=== PATIENT | female | born 1945 | race Caucasian/White ===

== ENCOUNTER 2019-01-17 09:07 | Emergency (ER) | payer OTHER, MEDICARE ==
--- OUTSIDE RECORDS SUMMARY | 2019-01-17 09:11 | XMS REPORT | Clinical Summary ---
:1945 Author Organization [facility] Address [address] [place] [address] Care Team Providers Name Role Phone Aixa Maria Primary Care Provider Unavailable Allergies Active Allergy Reactions Severity Noted Date Comments Sulfa (Sulfonamide Antibiotics) 12/05/2015 Medications Medication Sig Dispensed Refills Start Date End Date Status ALPRAZolam (XANAX) 0 01/25/2016 Active 0.5 MG tablet SYMBICORT 80-4.5 0 11/28/2015 Active mcg/actuation inhaler citalopram (CeleXA) 0 01/17/2016 Active 40 MG tablet montelukast 0 01/26/2016 Active (SINGULAIR) 10 mg tablet SPIRIVA RESPIMAT 0 11/28/2015 Active 2.5 mcg/actuation mist Lactobacillus Take 1 tablet 0 Active acidoph-L.bulgar by mouth 3 (FLORANEX) 1 (three) times million cell tablet a day. albuterol (PROAIR Inhale 2 puffs 0 Active HFA,PROVENTIL every 6 (six) HFA,VENTOLIN HFA) hours as 90 mcg/actuation needed for inhaler wheezing. cholecalciferol, Take 2,000 0 Active vitamin D3, Units by mouth (VITAMIN D3) 2,000 daily. unit capsule capsule diclofenac Apply 100 g 3 04/12/2018 Active (VOLTAREN) 1 % gel topically 2 (two) times a day. acyclovir (ZOVIRAX) TAKE 1 CAPSULE 180 capsule 0 01/03/2019 Active 200 MG BY MOUTH 2 capsuleIndications: TIMES A DAY Herpes infection cholestyramine 0 01/07/2016 Discontinued (QUESTRAN) 4 gram 8 packet acyclovir (ZOVIRAX) TAKE 1 CAPSULE 180 capsule 0 07/02/2017 Discontinued 200 MG BY MOUTH 2 8 capsuleIndications: TIMES A DAY Herpes infection acyclovir (ZOVIRAX) TAKE 1 CAPSULE 180 capsule 0 03/18/2018 Discontinued 200 MG BY MOUTH 2 8 capsuleIndications: TIMES A DAY Herpes infection acyclovir (ZOVIRAX) TAKE 1 CAPSULE 180 capsule 0 07/01/2018 Discontinued 200 MG BY MOUTH 2 9 capsuleIndications: TIMES A DAY Herpes infection acyclovir (ZOVIRAX) TAKE 1 CAPSULE 180 capsule 0 09/22/2018 Discontinued 200 MG BY MOUTH 2 9 capsuleIndications: TIMES A DAY Herpes infection Hospital, Clinic, or Ordered Dose Route Frequency Start Date End Date Status Other Facility Administered Medication denosumab (PROLIA) 60 mg subQ every 6 months 05/11/2018 Active syringe 60 mgIndications: Osteoporosis, postmenopausal Active Problems Problem Noted Date Shoulder arthritis 04/12/2018 Vitamin D deficiency disease 11/05/2016 H/O Clostridium difficile infection September - Jan 2016 03/05/2016 Osteoporosis s/p RECLAST 12/2014, 04/2016, 04/201703/05/2016 Overview: No reactions during infusion but diarrhea Leg length difference, acquired 03/05/2016 Scoliosis 03/05/2016 Renal cyst s/p decortication (L) complicated post op 200403/05/2016 CAT (mycobacterium avium-intracellulare) infection in 1998 s/p therapy. 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 Overview: 2007 Left tiffanie thoracotomy, upper lobectomy, lysis of pleural adhesions and mediastinal lymph node dissection Abnormal CT scan, chest 03/05/2016 Overview: Caseating granuloma associated with elastosis and calcification, benign lung changes of fibrosis, mucous plugging, bronchitis, emphysema and crystals consistent with silicate Benign lymph node with anthracotic pigment and crystals consistent with silicate and LN with sinus histiocytosis and anthracotic pigment Leucocytoclastic vasculitis 03/05/2016 Herpes infection on chronic valacyclovir 03/05/2016 Encounters Date Type Specialty Care Team Description 12/28/2018 Refill Rheumatology Luis Evans, Herpes infection on MD chronic valacyclovir 11/09/2018 Lab Lab Alim, Senile osteoporosis (Primary Dx); MD Laurel Need for prophylactic chemotherapy; Raynaud's disease without gangrene; False positive serological test for syphilis 09/22/2018 Refill Rheumatology Luis Evans, Herpes infection on chronic valacyclovir 08/27/2018 Telephone Rheumatology Radha Eckert MA 08/09/2018 Hospital Encounter Radiology Mayra, Secondary pulmonary Seamus arterial hypertension MD Jerardo ([facility] 08/09/2018 Hospital Encounter Radiology Mayra, Secondary pulmonary Seamus arterial hypertension MD Jerardo ([facility]) 08/06/2018 Transcribe Orders Access Mayra, Secondary pulmonary Seamus arterial hypertension MD Jerardo ([facility]) (Primary Dx) 08/05/2018 Lab Lab Mayra, Pulmonary artery Seamus hypertension ([facility]) MD Jerardo (Primary Dx) 06/25/2018 Refill Rheumatology Luis Evans, Herpes infection on chronic valacyclovir 05/19/2018 Hospital Encounter Procedural Cardiology Seamus Nunez MD 05/19/2018 Hospital Encounter Radiology Mayra, COPD, mild (HCC) Seamus Kurtz MD 05/12/2018 Transcribe Orders Access Mayra, COPD, mild (HCC) Seamus (Primary Dx) MD Jerardo 05/11/2018 Clinical Support Rheumatology 05/11/2018 Orders Only Rheumatology Babar OsteoporosisRadha MA postmenopausal (Primary Dx) 04/12/2018 Office Visit Rheumatology Luis Evans, Age-related osteoporosis without current pathological fracture (Primary Dx); Vitamin D deficiency disease; Shoulder arthritis; Abnormal findings on diagnostic imaging of other specified body structures ; Other osteoporosis without current pathological fracture 04/12/2018 Ancillary Luis Evans Age-related Procedure osteoporosis without current pathological fracture 04/09/2018 Telephone Endocrinology Layla Vargas 04/02/2018 Telephone Internal Medicine Opal Johnson MA 03/19/2018 Telephone Endocrinology Layla Vargas 03/18/2018 Refill Rheumatology Luis Evans, Herpes infection on chronic valacyclovir after 01/16/2018 Immunizations Name Dates Previously Given Next Due INFLUENZA QUAD PF 03/18/2017 Family History Medical History Relation Name Comments Leukemia Brother Alcohol abuse Father Cirrhosis Father COPD Mother COPD Sister Endometriosis Sister Other Sister malignant GIST Relation Name Status Comments Brother (Age 72) Father (Age 65) Mother (Age 79) Sister (Age 65) Social History Tobacco Use Types Packs/Day Years Used Date Former Smoker Smokeless Tobacco: Never Used Alcohol Use Drinks/Week oz/Week Comments No stopped 2004 Sex Assigned at Date Recorded Not on file Job Start Date Occupation Industry Not on file Not on file Not on file Travel History Travel Start Travel End No recent travel history available. Last Filed Vital Signs Vital Sign Reading Time Taken Blood Pressure 113/63 04/12/2018 11:07 AM CDT Pulse 58 04/12/2018 11:07 AM CDT Temperature 36.3 C (97.4 F) 04/12/2018 11:07 AM CDT Respiratory Rate - - Oxygen Saturation - - Inhaled Oxygen Concentration - - Weight 40.8 kg (90 lb) 08/09/2018 11:10 AM PVC MONITOR Height 146.1 cm (4' 9.5") 08/09/2018 11:10 AM PVC MONITOR Body Mass Index 19.14 08/09/2018 11:10 AM PVC MONITOR Plan of Treatment Health Maintenance Due Date Last Done Comments BREAST CANCER SCREENING 12/23/1993 COLONOSCOPY SCREENING 12/23/1993 SHINGLES VACCINES (#1) 12/23/1993 65+ PNEUMOCOCCAL VACCINE (2 of 2 - PPSV23) 12/23/2008 06/29/2004 INFLUENZA VACCINE 01/27/2019 03/18/2017 Procedures Procedure Name Priority Date/Time Associated Diagnosis Comments MARY TITER Routine 11/09/2018 3:25 Results for this PM CDT procedure are in the results section. ESTIMATED GFR Routine 11/09/2018 3:25 Results for this PM CDT procedure are in the results section. HC COMPLETE BLD COUNT Routine 11/09/2018 3:25 Senile osteoporosis Results for this W/AUTO DIFF PM CDT Need for procedure are in prophylactic the results chemotherapy section. 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 Raynaud's disease without gangrene False positive serological test for syphilis SEDIMENTATION RATE Routine 11/09/2018 3:25 Senile osteoporosis Results for this PM CDT Need for procedure are in prophylactic the results chemotherapy section. Raynaud's disease without gangrene False positive serological test for syphilis MARY Routine 11/09/2018 3:25 Senile osteoporosis Results for this PM CDT Need for procedure are in prophylactic the results chemotherapy section. 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 ESTIMATED GFR Routine 08/09/2018 11:20 Results for this AM PVC MONITOR procedure are in the results section. POC CREATININE Routine 08/09/2018 11:20 Results for this AM PVC MONITOR procedure are in the results section. NM LUNG VENTILATION Routine 08/09/2018 10:44 Secondary pulmonary Results for this PERFUSION AM PVC MONITOR arterial procedure are in hypertension (HCC) the results section. MARY TITER Routine 08/05/2018 1:28 Results for this PM PVC MONITOR procedure are in the results section. THYROID STIMULATING Routine 08/05/2018 1:28 Pulmonary artery Results for this HORMONE PM PVC MONITOR hypertension (HCC) procedure are in the results section. RIBONUCLEIC ANTIBODY Routine 08/05/2018 1:28 Pulmonary artery Results for this (NETWORKING TECHNOLOGY INSTRUCTOR) PM PVC MONITOR hypertension (HCC) procedure are in the results section. VALDERRAMA ANTIBODY Routine 08/05/2018 1:28 Pulmonary artery Results for this PM PVC MONITOR hypertension (HCC) procedure are in the results section. ANTI-NEUTROPHILIC Routine 08/05/2018 1:28 Pulmonary artery Results for this CYTOPLASMIC ABS PANEL PM PVC MONITOR hypertension (HCC) procedure are in the results section. SCL-70 ANTIBODY Routine 08/05/2018 1:28 Pulmonary artery Results for this PM PVC MONITOR hypertension (HCC) procedure are in the results section. ELAINE-1 ANTIBODY Routine 08/05/2018 1:28 Pulmonary artery Results for this PM PVC MONITOR hypertension (HCC) procedure are in the results section. SS-B ANTIBODY Routine 08/05/2018 1:28 Pulmonary artery Results for this PM PVC MONITOR hypertension (HCC) procedure are in the results section. SS-A ANTIBODY Routine 08/05/2018 1:28 Pulmonary artery Results for this PM PVC MONITOR hypertension (HCC) procedure are in the results section. RHEUMATOID FACTOR Routine 08/05/2018 1:28 Pulmonary artery Results for this PM PVC MONITOR hypertension (HCC) procedure are in the results section. MARY Routine 08/05/2018 1:28 Pulmonary artery Results for this PM PVC MONITOR hypertension (HCC) procedure are in the results section. ECHOCARDIOGRAM 2D Routine 05/19/2018 1:00 Results for this COMPLETE W MMODE PM PVC MONITOR procedure are in SPECTRAL COLOR DOPPLER the results (24486) section. CT CHEST WO CONTRAST Routine 05/19/2018 11:40 COPD, mild (HCC) Results for this AM PVC MONITOR procedure are in the results section. T4, FREE Routine 04/12/2018 11:59 Other osteoporosis Results for this AM CDT without current procedure are in pathological the results fracture section. Age-related osteoporosis without current pathological fracture Vitamin D deficiency disease Shoulder arthritis THYROID STIMULATING Routine 04/12/2018 11:59 Other osteoporosis Results for this HORMONE AM CDT without current procedure are in pathological the results fracture section. Abnormal findings on diagnostic imaging of other specified body structures Age-related osteoporosis without current pathological fracture Vitamin D deficiency disease Shoulder arthritis VITAMIN D 25 HYDROXY Routine 04/12/2018 11:59 Age-related Results for this LEVEL AM CDT osteoporosis without procedure are in current pathological the results fracture section. Vitamin D deficiency disease Shoulder arthritis BASIC METABOLIC PANEL Routine 04/12/2018 11:59 Age-related Results for this AM CDT osteoporosis without procedure are in current pathological the results fracture section. Vitamin D deficiency disease Shoulder arthritis PARATHYROID HORMONE Routine 04/12/2018 11:59 Age-related Results for this AM CDT osteoporosis without procedure are in current pathological the results fracture section. Vitamin D deficiency disease Shoulder arthritis BONE DENSITY Routine 04/12/2018 10:55 Age-related Results for this AM CDT osteoporosis without procedure are in current pathological the results fracture section. after 01/16/2018 Results Scl-70 antibody (11/09/2018 3:25 PM CDT)Only the most recent of2 resultswithin the time period is included. Pathologist [facility] Scleroderma SCL-70 <0.2 0.0 - 0.9 [facility] Scl-70 antibody Negative [facility] Comment: SABIANIST Anti-Scl-70 (topoisomerase I) antibodies are found in patients with HOSPITAL systemic sclerosis (SSc or scleroderma), and have been reported to be predictive of diffuse cutaneous involvement. Anti-Scl-70 antibodies may also be present in patients with systemic lupus erythematosus (SLE). Specimen Serum Performing Organization Address City/State/Zipcode Phone Number [facility] DEPARTMENT OF PATHOLOGY AND [address] [place] [address] GENOM[address] MED[address] [address] Estimated GFR (11/09/2018 3:25 PM CDT)Only the most recent of2 resultswithin the time period is included. Pathologist [facility] Estimated GFR 87 mL/min/1.73 [facility] Comment: HOSPITAL CatergoryUnitsInterpretation G1 >=90 Normal or high G2 60-89Mildly decreased [id number] to moderately decreased [id number] to severely decreased G4 15-29Severely decreased G5 <15Kidney failure The eGFR was calculated using the Chronic Kidney Disease Epidemiology Collaboration (CKD-EPI) equation. Interpretation is based on recommendations of the National Kidney Foundation-Kidney Disease Outcomes Quality Initiative (NKF-KDOQI) published in 2014. Specimen Plasma specimen Performing Organization Address City/[facility] Phone Number [facility] DEPARTMENT OF PATHOLOGY AND [address] [place] [phone] [place] [phone] DNA Ab screen (11/09/2018 3:25 PM CDT) DNA Ab screen Not Detected Not-Detected [facility] Specimen Blood Performing Organization Address City/[facility] Phone Number [facility] DEPARTMENT OF PATHOLOGY AND [address] [place] [phone] MARY titer (11/09/2018 3:25 PM CDT)Only the most recent of2 resultswithin the time period is included. Pathologist [facility] MARY titer 1:160 (A) Not-Detected [facility] MARY pattern Atypical speckled Not-Detected [facility] (A) HOSPITAL Specimen Blood Performing Organization Address City/[facility] Phone Number [facility] DEPARTMENT OF PATHOLOGY AND [address] [place] [phone] Protein, urine, random (11/09/2018 3:25 PM CDT) Protein, urine random 9 mg/dL [facility] Specimen Urine Performing Organization Address [facility] [place] Phone Number [facility] DEPARTMENT OF PATHOLOGY AND [address] [place] [address] [id number] [address] Creatinine level, urine, random (11/09/2018 3:25 PM CDT) Creatinine, urine, 31 mg/dL [facility] Specimen Urine Performing Organization Address City/[facility] Phone Number [facility] DEPARTMENT OF PATHOLOGY AND [address] [place] [phone] Urinalysis, automated with microscopy (11/09/2018 3:25 PM CDT) Color, UA Straw [facility] Appearance, UA Clear [facility] Specific gravity, UA 1.006 1.001 - 1.035 [facility] pH, UA 6.0 5.0 - 8.5 [facility] Protein, UA Negative Negative [facility] Glucose, UA Negative Negative [facility] Ketones, UA Negative Negative [facility] Bilirubin, UA Negative Negative [facility] Blood, UA Negative Negative [facility] Nitrite, UA Negative Negative [facility] Urobilinogen, UA <2.0 <2.0 [facility] Leukocyte esterase, Negative Negative [facility] Epithelial cells, UA <1 /HPF [facility] WBC, UA <1 0 - 4 /HPF [facility] RBC, UA None seen 0 - 5 /HPF [facility] Bacteria, UA None seen None seen [facility] Yeast, UA None seen [facility] Yeast with None seen [facility] pseudohyphae, [facility] Specimen Urine Performing Organization Address City/[facility]ode Phone Number [facility] DEPARTMENT OF PATHOLOGY AND [address] [place] [phone] [place] [phone] Sedimentation rate (11/09/2018 3:25 PM CDT) Sedimentation rate 9 0 - 20 mm/hr [facility] Specimen Blood Performing Organization Address City/[facility] Center[facility] Phone Number [facility] DEPARTMENT OF PATHOLOGY AND [address] [place] [phone] CBC with platelet and differential (11/09/2018 3:25 PM CDT) WBC 11.00 4.50 - 11.00 [facility] k/uL [facility] RBC 4.54 4.20 - 5.50 [facility] HGB 13.6 12.0 - 16.0 [facility] HCT 42.7 37.0 - 47.0 % [facility] MCV 94.1 82.0 - 100.0 [facility] MCH 30.0 27.0 - 34.0 pg [facility] MCHC 31.9 31.0 - 37.0 [facility] RDW - SD 46.5 37.0 - 55.0 fL [facility] MPV 9.4 8.8 - 13.2 fL [facility] Platelet count 294 150 - 400 k/uL [facility] Nucleated RBC 0.00 /100 WBC [facility] Neutrophils 56.3 39.0 - 69.0 % [facility] Lymphocytes 29.4 25.0 - 45.0 % [facility] Monocytes 9.4 0.0 - 10.0 % [facility] Eosinophils 3.1 0.0 - 5.0 % [facility] Basophils 1.5 (H) 0.0 - 1.0 % [facility] Immature granulocytes 0.3Comment: 0.0 - 1.0 % [facility] "[facility] granulocytes" (promyelocytes , myelocytes, metamyelocytes ) Specimen Blood Performing Organization Address City/[facility] [place] Phone Number [facility] DEPARTMENT OF PATHOLOGY AND [address] [place] [phone] C3 complement component (11/09/2018 3:25 PM CDT) C3 complement 142 90 - 180 mg/dL [facility] Specimen Plasma specimen Performing Organization Address [facility] [place] Phone Number [facility] DEPARTMENT OF PATHOLOGY AND [address] [place] [phone] C4 complement component (11/09/2018 3:25 PM CDT) C4 complement 28 10 - 40 mg/dL [facility] Specimen Plasma specimen Performing Organization Address [facility] [place] Phone Number [facility] DEPARTMENT OF PATHOLOGY AND [address] [place] [phone] C-reactive protein (11/09/2018 3:25 PM CDT) CRP <0.30 0.00 - 0.50 mg/dL [facility] Specimen Plasma specimen Performing Organization Address [facility] [place] Phone Number [facility] DEPARTMENT OF PATHOLOGY AND [address] [place] [phone] MARY (11/09/2018 3:25 PM CDT)Only the most recent of2 resultswithin the time period is included. MARY screen Positive (A) Negative [facility] Specimen Blood Performing Organization Address City/State/Zipcode Phone Number [facility] DEPARTMENT OF PATHOLOGY AND [address] [place] [address] [address] Comprehensive metabolic panel (11/09/2018 3:25 PM CDT) Sodium 140 135 - 148 [facility] mEq/L [facility] Potassium 3.9 3.5 - 5.0 [facility] mEq/L [facility] Chloride 101 98 - 112 mEq/L [facility] CO2 26 24 - 31 mEq/L [facility] Anion gap 13@ANIO 7 - 15 mEq/L [facility] BUN 8 8 - 23 mg/dL [facility] Creatinine 0.65 0.50 - 0.90 [facility] mg/dL [facility] Glucose 86 65 - 99 mg/dL [facility] Calcium 9.3 8.8 - 10.2 [facility] mg/dL [facility] Protein 7.6 6.3 - 8.3 g/dL [facility] Comment: HOSPITAL [place] 4.6-7.0 g/dL 1 week 4.4-7.6 g/dL 7 months-1year5.1-7.3 g/dL 1-2 years5.6-7.5 g/dL >3 years6.0-8.0 g/dL 18-150 6.3-8.3 g/dL Albumin 4.1 3.5 - 5.0 g/dL [facility] A/G ratio 1.2 0.7 - 3.8 [facility] Alkaline phosphatase 81 35 - 104 U/L [facility] AST 27 10 - 35 U/L [facility] ALT 18 5 - 50 U/L [facility] Total bilirubin <0.2 0.0 - 1.2 [facility] mg/dL HOSPITAL Specimen Plasma specimen Performing Organization Address City/State/Zipcode Phone Number [facility] DEPARTMENT OF PATHOLOGY AND [address] [place] [address] [address] [address] Angiogram Pe Chest (08/09/2018 12:14 PM PVC MONITOR) Specimen Narrative Performed At EXAMINATION: [facility] CT ANGIOGRAM PE CHEST CLINICAL HISTORY: I27.21 Secondary pulmonary arterial hypertension, I27.21 TECHNIQUE: CT angiographic images of the chest were obtained during intravenous administration of iodinated contrast. Computerized reformatted images and 3-D MIP images were also obtained and archived. CT imaging was performed with iterative reconstruction techniques and/orautomated exposure control to reduce radiation dose. COMPARISON: May 19, 2018 IMPRESSION: There is no evidence of pulmonary embolism. No significant lymphadenopathy, pleural or pericardial effusions are present Diffuse emphysematous changes are present throughout the lungs similar in appearance to prior. Bronchiectasis in the bilateral upper lobes, right greater than left as well as scarring in the right upper lobe is again present and unchanged. The main pulmonary artery is not dilated with a maximum diameter 2.5 cm Images of the upper abdomen are unremarkable Age related changes are present throughout the bony structures without evidence of a suspicious focal lesion. [facility]-[id number] Procedure Note Interface, Radiology Results Incoming - 08/09/2018 12:19 PM PVC MONITOR EXAMINATION: CT ANGIOGRAM PE CHEST CLINICAL HISTORY: I27.21 Secondary pulmonary arterial hypertension, I27.21 TECHNIQUE: CT angiographic images of the chest were obtained during intravenous administration of iodinated contrast. Computerized reformatted images and 3-D MIP images were also obtained and archived. CT imaging was performed with iterative reconstruction techniques and/or automated exposure control to reduce radiation dose. COMPARISON: May 19, 2018 IMPRESSION: There is no evidence of pulmonary embolism. No significant lymphadenopathy, pleural or pericardial effusions are present Diffuse emphysematous changes are present throughout the lungs similar in appearance to prior. Bronchiectasis in the bilateral upper lobes, right greater than left as well as scarring in the right upper lobe is again present and unchanged. The main pulmonary artery is not dilated with a maximum diameter 2.5 cm Images of the upper abdomen are unremarkable Age related changes are present throughout the bony structures without evidence of a suspicious focal lesion. [facility]-[id number] Performing Organization Address City/State/Zipcode Phone Number [facility] [address] [place] [address] POC creatinine (08/09/2018 11:20 AM PVC MONITOR) POC creatinine 0.7 0.5 - 0.9 mg/dl [facility] Comment: HOSPITAL Meter ID: [id number] Machine Feed Operator: Terry Briones Specimen Blood Performing Organization Address City/[facility]/Zipcode Phone Number [facility] DEPARTMENT OF PATHOLOGY AND [address] [place] [phone] GENOMIC MEDICINE [address] [place] [address] [place] Lung Ventilation Perfusion (08/09/2018 10:44 AM PVC MONITOR) Specimen Narrative Performed At PROCEDURE:NM LUNG VENTILATION PERFUSION [facility] INDICATION:Secondary pulmonary arterial hypertension. COMPARISON:Chest CT dated 05/19/2018. TECHNIQUE:Planar ventilation images were acquired after the inhalation of 15 mCi of Xe-133 gas. Planar perfusion images were acquired after the IV administration of 5 mCi of Tc-99m MAA. FINDINGS:Ventilation images demonstrate decreased ventilation to the lung periphery and left lung base. Washout images demonstrate patchy gas trapping in both lungs.Perfusion images demonstrate decreased perfusion to the lung periphery and left lung base, matching the ventilation images.No definite mismatched defects. IMPRESSION: 1.Low probability for acute PE. 2.No definite evidence for underlying chronic PE.Multiple matched defects in both lungs are most suggestive of underlying airspace disease. [facility]-[id number] Procedure Note Interface, Radiology Results Incoming - 08/09/2018 11:25 AM PVC MONITOR PROCEDURE: NM LUNG VENTILATION PERFUSION INDICATION: Secondary pulmonary arterial hypertension. COMPARISON: Chest CT dated 05/19/2018. TECHNIQUE: Planar ventilation images were acquired after the inhalation of 15 mCi of Xe-133 gas. Planar perfusion images were acquired after the IV administration of 5 mCi of Tc-99m MAA. FINDINGS: Ventilation images demonstrate decreased ventilation to the lung periphery and left lung base. Washout images demonstrate patchy gas trapping in both lungs. Perfusion images demonstrate decreased perfusion to the lung periphery and left lung base, matching the ventilation images. No definite mismatched defects. IMPRESSION: 1. Low probability for acute PE. 2. No definite evidence for underlying chronic PE. Multiple matched defects in both lungs are most suggestive of underlying airspace disease. [facility]-[id number] Performing Organization Address City/State/[facility] Phone Number [facility] [address] [place] [address] SS-B antibody (08/05/2018 1:28 PM PVC MONITOR) Sjogren's SS-B <0.2 0.0 - 0.9 AI [place] antibody [facility] SS-B antibody Negative [facility] interp Comment: SABIANIST SS-B/La antibody is seen in patients with Sjogren syndrome, but may also be HOSPITAL positive with systemic lupus erythematosus (SLE), and systemic sclerosis. Specimen Serum Performing Organization Address City/[facility] Cent[facility]ode Phone Number [facility] DEPARTMENT OF PATHOLOGY AND [address] [place] [id number] [place] [phone] SS-A antibody (08/05/2018 1:28 PM PVC MONITOR) Sjogren's SS-A <0.2 0.0 - 0.9 [facility] antibody [facility] SS-A antibody Negative [facility] interp Comment: SABIANIST SS-A antibody is sensitive for Sjogren's syndrome, but may also be positive HOSPITAL with systemic lupus erythematosus (SLE), and systemic sclerosis. Specimen Serum Performing Organization Address City/State/Zipcode Phone Number [facility] DEPARTMENT OF PATHOLOGY AND [address] [place] [phone] Valderrama antibody (08/05/2018 1:28 PM PVC MONITOR) Valderrama antibody <0.2 0.0 - 0.9 [facility] Valderrama antibody Negative [facility] interp Comment: SABIANIST Anti-Valderrama antibodies occurs in 30-35% of systemic lupus erythematosus HOSPITAL (SLE) cases, but is very specific for SLE. It may also present in mixed connective-tissue disease (MCTD). Specimen Serum Performing Organization Address City/State/Zipcode Phone Number [facility] DEPARTMENT OF PATHOLOGY AND [address] [place] [phone] Ribonucleic antibody (NETWORKING TECHNOLOGY INSTRUCTOR) (08/05/2018 1:28 PM PVC MONITOR) Ribonucleic <0.2 0.0 - 0.9 [facility] antibody (NETWORKING TECHNOLOGY INSTRUCTOR) [facility] Ribonucleic Negative [facility] antibody (NETWORKING TECHNOLOGY INSTRUCTOR) Comment: [facility] Anti-ribonucleic protein (anti-NETWORKING TECHNOLOGY INSTRUCTOR) antibodies are typically found in HOSPITAL patients with mixed connective tissue disease, but can also be seen in patients with systemic lupus erythematosus (SLE) or systematic sclerosis. Specimen Serum Performing Organization Address City/State/Zipcode Phone Number [facility] DEPARTMENT OF PATHOLOGY AND [address] [place] [phone] Elaine-1 antibody (08/05/2018 1:28 PM PVC MONITOR) Elaine-1 antibody <0.2 0.0 - 0.9 AI [facility] Elaine-1 antibody Negative [facility] Comment: SABIANIST Anti-Elaine-1 antibody is predominantly found in patients with polymyositis, HOSPITAL especially for those with interstitial pulmonary fibrosis. It can also be found in patients with dermatomyositis. Specimen Serum Performing Organization Address [facility] Centercode Phone Number [facility] DEPARTMENT OF PATHOLOGY AND [address] [place] [address] Anti-neutrophilic cytoplasmic Abs panel (08/05/2018 1:28 PM PVC MONITOR) [facility] ANCA screen Negative Negative [facility] Specimen Blood Performing Organization Address [facility] Number [facility] DEPARTMENT OF PATHOLOGY AND [address] [place] [address] Rheumatoid factor (08/05/2018 1:28 PM PVC MONITOR) [facility] Rheumatoid factor <10 0 - 13 IU/mL [facility] Specimen Plasma specimen Performing Organization Address [facility] Phone Number [facility] DEPARTMENT OF PATHOLOGY AND [address] [place] [address] Thyroid stimulating hormone (08/05/2018 1:28 PM PVC MONITOR)Only the most recent of2 resultswithin the time period is included. [facility] TSH 1.31 0.27 - 4.20 uIU/mL [facility] Specimen Plasma specimen Performing Organization Address [facility] Phone Number [facility] DEPARTMENT OF PATHOLOGY AND [address] [place] [address] Echocardiogram complete w contrast and 3D if needed (05/19/2018 1:00 PM PVC MONITOR) Specimen Narrative Performed At [facility] Echocardiography Report [address] [place] [address] [address], [place] [address] Pat.Name:SEEMA ROMO Elsa.ID:[id number] St.Date: 05/19/2018 Refer.MD:Kiana NUNEZ MD Exam Time: 12:15:00 PM Study Type:Routine Echo Height:57inWeight: 90lb BSA: 1.28 m2 DOBAge:1945,72Y Sex: FEMALEBP:113/63 HR:79 bpmSonogrphr: SHEMAR Aden, [facility] Pat. Stat.:OutpatientRoom:OPC 16 Study Status:Revised Echo Event ID:[id number] Order ID:[id number] Reason for Study:Pulmonary Hypertension History / Clinical:COPD Procedures:2D Echo, Colorflow Doppler, Strain Race:C SUMMARY: LV EF is normal. RV systolic function is mildly depressed. LV filling pressure is normal. Estimated PA systolic pressure is 65-70 mmHg, assuming a mean RAP of 5-10 mmHg. FINDINGS: LV: LV size is normal. LV EF is normal. Overall wall motion is normal.Estimated EF is 60-64%. Septal motion is paradoxicalsecondary to RV systolic pressure overload. RV: RV size is enlarged. RV systolic function is mildly depressed. LA: LA size is normal. RA: RA size is normal. AO: Aortic root diameter is normal. MARTY: No pericardial effusion. AV: No structural AV abnormalities noted. MV: No structural MV abnormalities noted. PV: No structural PV abnormalities noted. TV: No structural TV abnormalities noted. Mild to moderate tricuspidregurgitation Welch: LV relaxation is reduced, appropriate for age. LV filling pressureis normal. Other:Estimated PA systolic pressure is 65-70 mmHg, assuming a meanRAP of 5-10 mmHg. MEASUREMENTS: 2D Parasternal Long [place] LVOT 1.7 cmIVSd 0.6 cm Ao An1.9 cmLVPWd0.6 cm Ao Rtd 2.4 cmIndex1.9 cm/m LA Ds2.9 cm LVIDd4.1 cmIndex3.2 cm/m LV Mass 65.7 g(87-129) LVIDs2.2 cmLVM Index 51.4 g/m2 LV%fs 46.3 % RWT0.3 LA Sng Plane LA Area 14.5 cm2(8.8-23.4) LA Vol33.4 ml Index26.1 ml/m LA LngAx 5.1 cm DOPPLER LVOT Stroke Vol LVOT 1.7 cmLVOT CO4.3 l/min LVOT TVI23.8 cmLVOT CI3.3 l/m/m2 LVOT Tm282 zhkpFF60 bpm LVOT SV 54.1 ml TAPSE TVI TAPS TVI 2.2 cmTAPS Flw Int 362 msec Signed 05/24/2018 3:22:37 PM Librado Angela M.D. Revised Procedure Note Interface, Radiology Results In - 05/24/2018 3:22 PM [facility] Echocardiography Report [address] [place] [address] Pat.Name: SEEMA ROMO Pat.ID: [id number] .Date: 05/19/2018 Refer.MD: Kiana NUNEZ MD Exam Time: 12:15:00 PM Study Type:Routine Echo Height: 57in Weight: 90lb BSA: 1.28 m2 Age: 4 1945,72Y Sex: FEMALE BP: 113/63 HR: 79 bpm Sonogrphr: SHEMAR Aden, [facility] Pat. Stat.:Outpatient Room: OPC 16 Study Status:Revised Echo Event ID:[id number] Order ID: [id number] Reason for Study:Pulmonary Hypertension History / Clinical:COPD Procedures:2D Echo, Colorflow Doppler, Strain Race: C SUMMARY: LV EF is normal. RV systolic function is mildly depressed. LV filling pressure is normal. Estimated PA systolic pressure is 65-70 mmHg, assuming a mean RAP of 5-10 mmHg. FINDINGS: LV: LV size is normal. LV EF is normal. Overall wall motion is normal. Estimated EF is 60-64%. Septal motion is paradoxical secondary to RV systolic pressure overload. RV: RV size is enlarged. RV systolic function is mildly depressed. LA: LA size is normal. RA: RA size is normal. AO: Aortic root diameter is normal. MARTY: No pericardial effusion. AV: No structural AV abnormalities noted. MV: No structural MV abnormalities noted. PV: No structural PV abnormalities noted. TV: No structural TV abnormalities noted. Mild to moderate tricuspid regurgitation Welch: LV relaxation is reduced, appropriate for age. LV filling pressure is normal. Other: Estimated PA systolic pressure is 65-70 mmHg, assuming a mean RAP of 5-10 mmHg. MEASUREMENTS: 2D Parasternal Long [place] LVOT 1.7 cm IVSd 0.6 cm Ao An 1.9 cm LVPWd 0.6 cm Ao Rtd 2.4 cm Index 1.9 cm/m LA Ds 2.9 cm LVIDd 4.1 cm Index 3.2 cm/m LV Mass 65.7 g (87-129) LVIDs 2.2 cm LVM Index 51.4 g/m2 LV%fs 46.3 % RWT 0.3 LA Sng Plane LA Area 14.5 cm2 (8.8-23.4) LA Vol 33.4 ml Index 26.1 ml/m LA LngAx 5.1 cm DOPPLER LVOT Stroke Vol LVOT 1.7 cm LVOT CO 4.3 l/min LVOT TVI 23.8 cm LVOT CI 3.3 l/m/m2 LVOT Tm 282 msec HR 79 bpm LVOT SV 54.1 ml TAPSE TVI TAPS TVI 2.2 cm TAPS Flw Int 362 msec Signed 05/24/2018 3:22:37 PM Librado Angela M.D. Revised Performing Organization Address City/State/Zipcode Phone Number [facility] [address] [place] [address] CT Chest Wo Contrast (05/19/2018 11:40 AM PVC MONITOR) Specimen Narrative Performed At EXAMINATION: [facility] CT CHEST WO CONTRAST CLINICAL HISTORY: J44.9 Chronic obstructive pulmonary diseaseunspecified, J44.9 TECHNIQUE:Multiple axial images of the chest were obtained without intravenous contrast. The lack of intravenous contrast reduces the sensitivity of detecting solid organ disease and evaluating vasculature. Sagittal and coronal computerized reformatted images were also obtained. CT imaging was performed with iterative reconstruction techniques and/or automated exposure control to reduce radiation dose. COMPARISON: To previous study from 04/07/2016 IMPRESSION: 1.No hilar or mediastinal lymphadenopathy is appreciated. 2.Bronchiectasis and severe scarring is present in the lung apices. Severe emphysematous changes are present diffusely no acute consolidation is appreciated. 3.Arthritic changes noted involving the spine and mild scoliotic curvature is present. [id number] Procedure Note Interface, Radiology Results Incoming - 05/19/2018 11:53 AM PVC MONITOR EXAMINATION: CT CHEST WO CONTRAST CLINICAL HISTORY: J44.9 Chronic obstructive pulmonary disease unspecified, J44.9 TECHNIQUE: Multiple axial images of the chest were obtained without intravenous contrast. The lack of intravenous contrast reduces the sensitivity of detecting solid organ disease and evaluating vasculature. Sagittal and coronal computerized reformatted images were also obtained. CT imaging was performed with iterative reconstruction techniques and/or automated exposure control to reduce radiation dose. COMPARISON: To previous study from 04/07/2016 IMPRESSION: 1. No hilar or mediastinal lymphadenopathy is appreciated. 2. Bronchiectasis and severe scarring is present in the lung apices. Severe emphysematous changes are present diffusely no acute consolidation is appreciated. 3. Arthritic changes noted involving the spine and mild scoliotic curvature is present. [id number] Performing Organization Address City/State/Zipcode Phone Number [facility] [address] [place] [address] Vitamin D 25 hydroxy level (04/12/2018 11:59 AM CDT) Pathologist [facility] Vitamin D, 69 30 - 100 [employer] 25-hydroxy Comment: ng/mL [place] Vitamin D Status 25-OH Vitamin D: Deficiency:<20 ng/mL Insufficiency: 20 - 29 ng/mL Optimal: > or=30 ng/mL For 25-OH Vitamin D testing on patients on D2-supplementation and patients for whom quantitation of D2 and D3 fractions is required, the QuestAssureD(TM) 25-OH VIT D, (D2,D3), LC/MS/MS is recommended: order code 04883 (patients >2yrs). For more information on this test, go to: http://education.Access [employer]/faq/LTA682 (This link is being provided for informational/educational purposes only.) Specimen Blood Narrative Performed At FASTING:YES [facility] FASTING: YES Resulting Agency Comment Performing Organization Information: Site ID: [id number] Name: [facility] Address: [address] [place] [phone] Director: Loan Peres Performing Organization Address [facility] Centercode Phone Number [employer] [address] [address] T4, free (04/12/2018 11:59 AM CDT) Pathologist [facility] T4, free 0.9 0.8 - 1.8 ng/dL [employer] [place] Specimen Blood Narrative Performed At FASTING:YES [facility] FASTING: YES Resulting Agency Comment Performing Organization Information: Site ID: [id number] Name: [facility] Address: [address] [place] [phone] Director: Loan Peres Performing Organization Address City/[facility]/Zipcode Phone Number [employer] [address] [address] Parathyroid hormone (04/12/2018 11:59 AM CDT) Pathologist [facility] PTH 57 14 - 64 pg/mL [facility] Comment: DIAGNOSTICS-LAURIE G II Interpretive GuideIntact PTH Calcium ------- Normal ParathyroidNormal Normal HypoparathyroidismLow or Low NormalLow Hyperparathyroidism PrimaryNormal or High High SecondaryHigh Normal or Low Tertiary High High Non-Parathyroid HypercalcemiaLow or Low NormalHigh Specimen Blood Narrative Performed At FASTING:YES [facility] FASTING: YES Resulting Agency Comment Performing Organization Information: Site ID: [id number] Name: [facility] - [facility] Address: [address] [place] [address] Director: Dr. Faraz Castro Performing Organization Address City/State/Zipcode Phone Number [facility] [address] [place] [address] Basic metabolic panel (04/12/2018 11:59 AM CDT) Glucose 85 65 - 99 [employer] Comment: mg/dL [place] Fasting reference interval BUN, whole blood 9 7 - 25 mg/dL [facility] [place] Creatinine 0.63 0.60 - 0.93 [employer] Comment: mg/dL [place] For patients >49 years of age, the reference limit for Creatinine is approximately 13% higher for people identified as -Dominican. EGFR Non-Afr. 88 > OR=60 [facility] Dominican mL/min/1.73m [place] 2 EGFR 102 > OR=60 [facility] Dominican mL/min/1.73m [place] 2 BUN/creatinine NOT APPLICABLE 6 - 22 [facility] ratio (calc) [place] Sodium 140 135 - 146 [facility] mmol/L [place] Potassium 3.8 3.5 - 5.3 [facility] mmol/L [place] Chloride 104 98 - 110 [facility] mmol/L [place] CO2 31 20 - 32 [facility] mmol/L [place] Calcium 9.3 8.6 - 10.4 [facility] mg/dL [place] Specimen Blood Narrative Performed At FASTING:YES [facility] FASTING: YES Resulting Agency Comment Performing Organization Information: Site ID: [id number] Name: [facility] Address: [address] [place] [address] Director: Loan Peres Performing Organization Address City/State/Zipcode Phone Number [facility] [employer] [place] [address] [place], [place] [phone] Bone Density (04/12/2018 10:55 AM CDT) Specimen Narrative Performed At [facility] [address] [facility] [place] [address] Bone Density Report Name: Seema Romo Sex: Female Age: 72 Ethnicity: White Height: 57.5 in Referring Provider: LUIS EVANS Date of : 1945 Weight: 89.0 lb Indication: Osteoporosis; history of glucocorticoids Accession number: [id number] Bone Density: Exam date 04/12/2018 Region BMD (g/cm2) T-score Z-score Classification AP Spine(L1-L4) 0.730 -2.9 -0.5 Osteoporosis Femoral Neck(Left) 0.521 -3.0 -0.9 Osteoporosis Total Hip(Left) 0.609 -2.7 -1.0 Osteoporosis Femoral Neck(Right) 0.542 -2.8 -0.7 Osteoporosis Total Hip(Right) 0.623 -2.6 -0.9 Osteoporosis Total Hip Mean 0.616 -2.7 -1.0 Osteoporosis World Health Organization criteria for BMD impression classify patients as Normal (T-score at or above 1.0), Osteopenia (T-score between 1.0 and 2.5), or Osteoporosis (T-score at or below 2.5). 10-year Fracture Risk: Major Osteoporotic Fracture 24% Hip Fracture 10% Reported Risk Factors: [place] (), T-score(WHO)=-2.8, BMI=18.9, glucocorticoids FRAX Version 3.08. Fracture probability calculated for an untreated patient. Fracture probability may be lower if the patient has received treatment. Previous Exams: Region Exam Date Age BMD (g/cm2) T-score BMD Change vs. Baseline BMD Change vs. Previous AP Spine(L1-L4) 04/12/2018 72 0.730 -2.9 2.1% -0.8% 04/08/2017 71 0.735 -2.8 2.9% 1.7% 01/01/2016 70 0.723 -2.9 1.1% 1.1% 12/21/2014 68 0.715 -3.0 Total Hip(Left) 04/12/2018 72 0.609 -2.7 -0.1% -1.5% 04/08/2017 71 0.618 -2.7 1.4% 2.8% 01/01/2016 70 0.601 -2.8 -1.4% -1.4% 12/21/2014 68 0.610 -2.7 Total Hip(Right) 04/12/2018 72 0.623 -2.6 -1.1% -0.4% 04/08/2017 71 0.626 -2.6 -0.7% 0.0% 01/01/2016 70 0.626 -2.6 -0.6% -0.6% 12/21/2014 68 0.630 -2.6 *Denotes significance at 95% confidence level, LSC for AP Spine=0.022 g/cm2,LSC for Total Hip=0.027 g/cm2 Impression: The patient has osteoporosis, based on the Left Femoral Neck T-score. The patient has an estimated ten-year risk of hip fracture of 10% and an estimated ten-year risk of major fracture of 24%, based on the WHO FRAX algorithm. The patient has risk factors, including: history of glucocorticoid therapy. Monitoring: No significant bone loss was observed. Discussion: INCREASED RISK OF FRACTURE. BONE DENSITY IS UNDESIRABLY LOW AT ONE OR MORE SKELETAL SITES, CONSISTENT WITH POSTMENOPAUSAL OSTEOPOROSIS. This patient's lowest T-score meets the World Health Organization's (WHO) criteria for osteoporosis at one or more sites (T-score -2.5 or below). In untreated patients, the risk of osteoporotic fracture increases approximately two-fold for each 1.0 SD decrease in T-score.Low bone density is not the only risk factor for fracture; also consider factors such as patient's age, frailty or poor health, risk of falling, risk of injury, previous osteoporotic fracture, family history of osteoporosis, cigarette smoking, low body weight, etc. Not everyone with low bone mineral density has osteoporosis; osteomalacia and other metabolic bone disorders should also be considered. Patients who have osteoporosis should be evaluated for specific diseases and conditions (secondary causes) that may cause or contribute to bone loss. The [place] Association of Clinical Endocrinologists (AACE) and National Osteoporosis Foundation (NOF) recommend pharmacologic intervention for all postmenopausal women whose T-score is in this range. The patient should follow a healthful lifestyle (good nutrition with adequate calcium and vitamin D, and appropriate weight-bearing exercise). Follow-Up: Consider a repeat BMD and Vertebral Fracture Assessment (VFA) exam in 1-2 years or sooner if medically necessary, to reassess this patient's status. Reported by: Bishop Culp MD, MACE, CCD on 04/13/2018 6:08:00 AM. Performing Organization Address City/State/Zipcode Phone Number [facility] [address] [place] [address] after 01/16/2018 Insurance Payer Benefit Plan / Subscriber ID Effective Dates Phone Address Type Group MEDICARE MEDICARE PART A xxxxxxxxxxx 2001-Present [place], [place] Medicare AND B AARP AARP SUPPLEMENT xxxxxxxxx 2008-Present Commercial Advance Directives Patient has advance care planning documents on file. For more information, please contact:Yony Lundberg[address] [place] [address]
--- OUTSIDE RECORDS SUMMARY | 2019-01-17 09:11 | XMS REPORT ---
:1945 Author Organization eClinicalWorks Care Team Providers Name Role Phone Crawford, [facility] Provider Role Unavailable Allergies, Adverse Reactions, Alerts Substance Reaction Event Type Bactrim DS Info Not Available Drug Allergy Problems Problem Type Condition Code Onset Dates Condition Status Assessment Depression with anxiety F41.8 Active Problem 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 Problem Chronic obstructive pulmonary J44.9 Active disease, unspecified COPD type Problem Seasonal allergies J30.2 Active Problem Shingles B02.9 Active Problem Depression with anxiety F41.8 Active Problem Age-related osteoporosis without M81.0 Active current pathological fracture Problem Fatty liver K76.0 Active Medications Medication Code Code Instructions Start End Status Dosage System Date Date Montelukast [facility] 29814235683 10 MG once a Active TAKE 1 TABLET Sodium day BY MOUTH ONCE A DAY IN THE EVENING Flovent HFA [facility] 96242941364 220 MCG/ACT Active 1 puff Inhalation Twice a day Xanax [facility] 84101103330 0.5 MG Orally Active 1 tablet BID PRN Nasonex [facility] 97392608341 50 MCG/ACT Active 2 sprays in Nasally Once a each nostril day Celexa [facility] 38063019746 40 MG Orally Jul 28, Active 1 tablet Once a day 2017 ProAir HFA [facility] 38229192579 108 (90 Base) Active 2 puffs as MCG/ACT needed Inhalation every 6 hrs Spiriva [facility] 62450179633 2.5 microgram Active 2 puffs Respimat Inhaled Once a day Reclast [facility] 75138563363 5 MG/100ML Active not defined Intravenous Vitamin D [facility] 12133115090 2000 UNIT Active 1 tablet Orally Once a day Symbicort [facility] 18858434854 80-4.5 MCG/ACT Active 2 puffs Inhalation Twice a day Questran [facility] 57910466299 4 GM Orally Active 1 packet mixed Twice a day with water or non-carbonated drink Claritin [facility] 85182345225 10 MG Orally Active 1 tablet Once a day Pennsaid [facility] 86165538218 2 % Transdermal December 09December Active 2 pump Twice a day 2017, 2017 to affected area Results No Known Results Summary Purpose eClinicalWorks Submission
--- OUTSIDE RECORDS SUMMARY | 2019-01-17 09:11 | XMS REPORT | Clinical Summary ---
:1945 Author Organization [facility] Address [address] [place] [address] Care Team Providers Name Role Phone Refugio Crawford Primary Care Provider Allergies Active Allergy Reactions Severity Noted Date Comments Sulfa (Sulfonamide Antibiotics) Swelling 06/10/2018 Medications Medication Sig Dispensed Refills Start Date End Date Status turmeric 400 mg Cap Take by mouth daily. 0 Active omega-3 fatty Take 1 g by mouth 0 Active acids-fish oil daily. 340-1,000 mg Cap per capsule citalopram (CELEXA) Take 40 mg by mouth 0 Active 40 MG tablet daily. montelukast Take 10 mg by mouth 0 Active (SINGULAIR) 10 mg nightly. tablet guaiFENesin Take 1,200 mg by 0 Active (MUCINEX) 600 mg 12 mouth daily. hr tablet glucosamine sulfate Take by mouth daily. 0 Active (GLUCOSAMINE) 500 mg Tab albuterol HFA Inhale 2 puffs by 0 Active (PROAIR HFA) 90 mouth via inhaler mcg/actuation every 4 (four) hours inhaler as needed for Wheezing. albuterol (ACCUNEB) Take 1 ampule by 0 Active 1.25 mg/3 mL nebulization 2 (two) nebulizer solution times daily. acyclovir (ZOVIRAX) Take 200 mg by mouth 0 Active 200 MG capsule 2 (two) times daily. cholecalciferol, Take by mouth daily . 0 Active vitamin D3, (VITAMIN D3) 1,000 unit capsuleIndications: Take 2 Tabs Daily tiotropium bromide Inhale by mouth via 0 Active (SPIRIVA RESPIMAT) inhaler every 2.5 mcg/actuation morning. MistIndications: 2 puffs in the morning budesonide-formoter Inhale 2 puffs by 0 Active ol (SYMBICORT) mouth via inhaler 2 80-4.5 (two) times daily. mcg/actuation inhaler ALPRAZolam (XANAX) Take 0.5 mg by mouth 0 Active 0.5 MG tablet as needed for Anxiety. glucosamine-chondro Take 1 tablet by 0 Active itin 500-400 mg mouth 3 (three) times tablet daily. denosumab (PROLIA) Inject 60 mg 0 Active 60 mg/mL Syrg subcutaneously every 6 (six) months. Active Problems Problem Noted Date Heart failure 06/11/2018 Encounters Date Type Specialty Care Team Description 06/11/2018 Surgery [facility] R & L CATH / MD Radha CORONARY ANGIOS / BIOPSY 06/11/2018 Hospital Encounter Lopez Luz Chronic systolic MD Radha heart failure (HCC) 06/11/2018 Orders Only General Internal Medicine after 01/16/2018 Social History Tobacco Use Types Packs/Day Years Used Date Former Smoker 1.5 40 Quit: 2004 Smokeless Tobacco: Never Used Alcohol Use Drinks/Week oz/Week Comments Yes 1 Glasses of wine 0.6 occasional Alcohol Habits Answer Date Recorded How often do you have a drink containing alcohol? Never 06/10/2018 How many drinks containing alcohol do you have on a typical Not asked day when you are drinking? How often do you have six or more drinks on one occasion? Not asked Sex Assigned at Date Recorded Not on file Job Start Date Occupation Industry Not on file Not on file Not on file Travel History Travel Start Travel End No recent travel history available. Last Filed Vital Signs Vital Sign Reading Time Taken Blood Pressure 108/53 06/11/2018 2:00 PM RESERVATIONS AGENT Pulse 91 06/11/2018 2:00 PM [facility]ERVATIONS AGENT Temperature 36.9 C (98.5 F) 06/11/2018 5:43 AM RESERVATIONS AGENT Respiratory Rate 16 06/11/2018 2:00 PM RESERVATIONS AGENT Oxygen Saturation 91% 06/11/2018 10:10 AM RESERVATIONS AGENT Inhaled Oxygen Concentration - - Weight 38.8 kg (85 lb 8 oz) 06/11/2018 5:43 AM RESERVATIONS AGENT Height 146.1 cm (4' 9.5") 06/11/2018 5:43 AM RESERVATIONS AGENT Body Mass Index 18.18 06/11/2018 5:43 AM RESERVATIONS AGENT Plan of Treatment Not on file Procedures Procedure Name Priority Date/Time Associated Diagnosis Comments CARDIAC CATH REPORT - 06/18/2018 1:01 PM SCAN RESERVATIONS AGENT R & L CATH / CORONARY 06/11/2018 7:30 AM Heart failure, ANGIOS / BIOPSY RESERVATIONS AGENT unspecified HF chronicity, unspecified heart failure type (HCC) Case Notes POP6. Nitric Oxide challenge CBC W/PLT COUNT & AUTO STAT 06/11/2018 6:38 AM RESERVATIONS AGENT Results for this DIFFERENTIAL procedure are in the results section. PROTHROMBIN TIME/INR STAT 06/11/2018 6:38 AM RESERVATIONS AGENT BASIC METABOLIC PANEL (7) STAT 06/11/2018 6:38 AM RESERVATIONS AGENT CBC W/PLT COUNT & AUTO STAT 06/11/2018 6:38 AM RESERVATIONS AGENT Results for this DIFFERENTIAL procedure are in the results section. ECG 12-LEAD Routine 06/11/2018 6:34 AM RESERVATIONS AGENT Procedure Note - Interface, External Ris In - 06/11/2018 6:41 AM RESERVATIONS AGENT Ventricular Rate 62 BPM Atrial Rate 62 BPM P-R Interval 106 ms QRS Duration 84 ms Q-T Interval 424 ms QTC Calculation(Bazett) 430 ms P [place] 83 degrees R [place] -75 degrees T [place] 20 degrees Sinus rhythm with short MT with Premature atrial complexes with Aberrant conduction Low voltage QRS Left anterior fascicular block Possible Anterolateral infarct , age undetermined Abnormal ECG No previous ECGs available ECG 12-LEAD Routine 06/11/2018 6:34 AM RESERVATIONS AGENT after 01/16/2018 Results CARDIAC CATH REPORT - SCAN (06/18/2018 1:01 PM RESERVATIONS AGENT) Narrative Performed At CBC with platelet count + automated diff (06/11/2018 6:38 AM RESERVATIONS AGENT) WBC 12.2 (H) 3.5 - 10.5 K/L [facility] RBC 4.61 3.93 - 5.22 M/L [facility] Hemoglobin 14.2 11.2 - 15.7 GM/DL [facility] Hematocrit 43.5 34.1 - 44.9 % [facility] MCV 94.4 79.4 - 94.8 fL [facility] MCH 30.8 25.6 - 32.2 pg [facility] MCHC 32.6 32.2 - 35.5 GM/DL [facility] RDW 14.0 11.7 - 14.4 % [facility] Platelets 356 150 - 450 K/CU MM [facility] MPV 8.9 (L) 9.4 - 12.3 fL [facility] nRBC 0 0 - 0 /100 WBC [facility] % Neutros 64 % [facility] % Lymphs 22 % [facility] % Monos 11 % [facility] % Eos 0 % [facility] % Baso 1 % [facility] # Neutros 7.83 (H) 1.56 - 6.13 K/L [facility] # Lymphs 2.73 1.18 - 3.74 K/L [facility] # Monos 1.38 (H) 0.24 - 0.36 K/L [facility] # Eos 0.05 0.04 - 0.36 K/L [facility] # Baso 0.08 0.01 - 0.08 K/L [facility] Immature Granulocytes-Relative 1 0 - 1 % [facility] Specimen Blood Performing Organization Address City/State/Zipcode Phone Number [facility] [address] [place] [address] CENTER Prothrombin time/INR (06/11/2018 6:38 AM RESERVATIONS AGENT) Protime 12.9 11.7 - 14.7 seconds [facility] INR 1.0 <=5.9 [facility] Specimen Blood Narrative Performed At RECOMMENDED COUMADIN/WARFARIN INR THERAPY [facility] RANGES STANDARD DOSE: 2.0 - 3.0 Includes: PROPHYLAXIS for venous thrombosis, systemic embolization; TREATMENT for venous thrombosis and/or pulmonary embolus. HIGH RISK: Target INR is 2.5-3.5 for patients with mechanical heart valves. Performing Organization Address [facility] Phone Number [address] [address] [phone] [place] Basic Metabolic Panel (06/11/2018 6:38 AM RESERVATIONS AGENT) Sodium 139 136 - 145 meq/L [facility] Potassium 3.5 3.5 - 5.1 meq/L [facility] Chloride 103 98 - 107 meq/L [facility] CO2 28 22 - 29 meq/L [facility] BUN 15 7 - 21 mg/dL [facility] Creatinine 0.73 0.57 - 1.25 mg/dL [facility] Glucose 89 70 - 105 mg/dL [facility] Calcium 9.7 8.4 - 10.2 mg/dL [facility] EGFR 78Comment: ESTIMATED GFR IS mL/min/1.73 sq m [facility] NOT ACCURATE CREATININE [facility] CENTER CLEARANCE IN PREDICTING GLOMERULAR FILTRATION RATE. ESTIMATED GFR IS NOT APPLICABLE FOR DIALYSIS PATIENTS. Specimen Blood Performing Organization Address [facility] Phone Number [address] [address] [phone] [place] ECG 12 lead (06/11/2018 6:34 AM RESERVATIONS AGENT) Specimen Narrative Performed At Ventricular Rate 62 BPM GE MUSE Atrial Rate 62 BPM P-R Interval 106 ms QRS Duration 84 ms Q-T Interval 424 ms QTC Calculation(Bazett) 430 ms P [place] 83 degrees R [place] -75 degrees T [place] 20 degrees Sinus rhythm with short MT with Premature atrial complexes with Aberrant conduction Low voltage QRS Left anterior fascicular block Possible Anterolateral infarct , age undetermined Abnormal ECG No previous ECGs available Confirmed by MD Kelley Roberto ([id number]) on 06/11/2018 2:15:28 PM Procedure Note Interface, External Ris In - 06/11/2018 2:15 PM RESERVATIONS AGENT Ventricular Rate 62 BPM Atrial Rate 62 BPM P-R Interval 106 ms QRS Duration 84 ms Q-T Interval 424 ms QTC Calculation(Bazett) 430 ms P [place] 83 degrees R [place] -75 degrees T [place] 20 degrees Sinus rhythm with short MT with Premature atrial complexes with Aberrant conduction Low voltage QRS Left anterior fascicular block Possible Anterolateral infarct , age undetermined Abnormal ECG No previous ECGs available Confirmed by MD Kelley Roberto ([id number]) on 06/11/2018 2:15:28 PM Performing Organization Address City/State/Zipcode Phone Number GE MUSE after 01/16/2018 Insurance Payer Benefit Plan / Group Subscriber ID Type Phone Address MEDICARE MEDICARE A B xxxxxxxxxxx Medicare MCR SUPPLEMENT/INDIVIDUAL [employer]/[facility] xxxxxxxxxxx Medigap
--- OUTSIDE RECORDS SUMMARY | 2019-01-17 09:11 | XMS REPORT ---
:1945 [facility] Address [address] [place] [address] Dr. Clark [address] [place] [address] Care Team Providers Name Role Phone JANEL MORFIN Unavailable Unavailable Problems This patient has no known problems. Allergies, Adverse Reactions, Alerts This patient has no known allergies or adverse reactions. Medications This patient has no known medications. Results Test Description Test Time Test Comments Text Results Atomic Results Result Comments BASIC METABOLIC PANEL 2018-06-11 07:10:00 Test Item Value Reference Range Comments SODIUM (BEAKER) (test 139 meq/L 136-145 xeyq=511) POTASSIUM (BEAKER) (test 3.5 meq/L 3.5-5.1 rpas=833) CHLORIDE (BEAKER) (test 103 meq/L 98-107 rzmg=027) CO2 (BEAKER) (test cxgb=551) 28 meq/L 22-29 BLOOD UREA NITROGEN (BEAKER) 15 mg/dL 7-21 (test gmea=783) CREATININE (BEAKER) (test 0.73 mg/dL 0.57-1.25 pcsb=104) GLUCOSE RANDOM (BEAKER) 89 mg/dL 70-105 (test rcwn=160) CALCIUM (BEAKER) (test 9.7 mg/dL 8.4-10.2 pmin=392) EGFR (BEAKER) (test 78 mL/min/1.73 sq m ESTIMATED GFR IS NOT zzfq=6718) ACCURATE CREATININE CLEARANCE IN PREDICTING GLOMERULAR FILTRATION RATE. ESTIMATED GFR IS NOT APPLICABLE FOR DIALYSIS PATIENTS. PROTHROMBIN TIME/[id number] 07:01:00 Test Item Value Reference Range Comments PROTIME (BEAKER) (test whpy=458) 12.9 seconds 11.7-14.7 INR (BEAKER) (test mclb=980) 1.0 <=5.9 RECOMMENDED COUMADIN/WARFARIN INR THERAPY RANGESSTANDARD DOSE: 2.0 - 3.0 Includes: PROPHYLAXIS forvenous thrombosis, systemic embolization; TREATMENT for venous thrombosis and/or pulmonary embolus.HIGH RISK: Target INR is 2.5-3.5 for patients with mechanical heart valves.CBC W/PLT COUNT & AUTO [id number] 06:45:00 Test Item Value Reference Range Comments WHITE BLOOD CELL COUNT (BEAKER) (test dhir=259) 12.2 K/ L 3.5-10.5 RED BLOOD CELL COUNT (BEAKER) (test cyte=133) 4.61 M/ L 3.93-5.22 HEMOGLOBIN (BEAKER) (test zvao=304) 14.2 GM/DL 11.2-15.7 HEMATOCRIT (BEAKER) (test ckvh=679) 43.5 % 34.1-44.9 MEAN CORPUSCULAR VOLUME (BEAKER) (test dwou=325) 94.4 fL 79.4-94.8 MEAN CORPUSCULAR HEMOGLOBIN (BEAKER) (test 30.8 pg 25.6-32.2 mcbt=224) MEAN CORPUSCULAR HEMOGLOBIN CONC (BEAKER) (test 32.6 GM/DL 32.2-35.5 wlix=860) RED CELL DISTRIBUTION WIDTH (BEAKER) (test 14.0 % 11.7-14.4 vnyn=239) PLATELET COUNT (BEAKER) (test milh=295) 356 K/CU MM 150-450 MEAN PLATELET VOLUME (BEAKER) (test sxgz=065) 8.9 fL 9.4-12.3 NUCLEATED RED BLOOD CELLS (BEAKER) (test 0 /100 WBC 0-0 fztv=693) NEUTROPHILS RELATIVE PERCENT (BEAKER) (test 64 % dcgf=803) LYMPHOCYTES RELATIVE PERCENT (BEAKER) (test 22 % dwem=110) MONOCYTES RELATIVE PERCENT (BEAKER) (test 11 % jlae=071) EOSINOPHILS RELATIVE PERCENT (BEAKER) (test 0 % smwb=276) BASOPHILS RELATIVE PERCENT (BEAKER) (test 1 % unhi=566) NEUTROPHILS ABSOLUTE COUNT (BEAKER) (test 7.83 K/ L 1.56-6.13 dtbs=312) LYMPHOCYTES ABSOLUTE COUNT (BEAKER) (test 2.73 K/ L 1.18-3.74 fsma=793) MONOCYTES ABSOLUTE COUNT (BEAKER) (test 1.38 K/ L 0.24-0.36 tjnz=169) EOSINOPHILS ABSOLUTE COUNT (BEAKER) (test 0.05 K/ L 0.04-0.36 kukq=413) BASOPHILS ABSOLUTE COUNT (BEAKER) (test 0.08 K/ L 0.01-0.08 gtkr=907) IMMATURE GRANULOCYTES-RELATIVE PERCENT (BEAKER) 1 % 0-1 (test dnpn=6491)
--- OUTSIDE RECORDS SUMMARY | 2019-01-17 09:11 | XMS REPORT ---
:1945 Author Organization eClinicalWorks Care Team Providers Name Role Phone Crawford, Refugio Provider Role Unavailable Allergies, Adverse Reactions, Alerts [...] Start End Status Dosage System Date Date ProAir HFA [facility] 57548442893 108 (90 Base) Active 2 puffs as MCG/ACT needed Inhalation every 6 hrs Vitamin D [facility] 24787689849 2000 UNIT Orally Active 1 tablet Once a day Claritin [facility] 19561025865 10 MG Orally Active 1 tablet Once a day Symbicort [facility] 71399842294 80-4.5 MCG/ACT Active 2 puffs Inhalation Twice a day Xanax [facility] 38111875908 0.5 MG Orally Active 1 tablet BID PRN Flovent HFA [facility] 12983791875 220 MCG/ACT Active 1 puff Inhalation Twice a day Spiriva [facility] 17091290927 2.5 microgram Active 2 puffs Respimat Inhaled Once a day Celexa [facility] 11557152735 40 MG Orally Jul 28, Active 1 tablet Once a day 2017 Montelukast ND 29790947372 10 MG once a Active TAKE 1 Sodium day TABLET BY MOUTH ONCE A DAY IN THE EVENING Questran [facility] 95667118957 4 GM Orally Active 1 packet Twice a day mixed with water or non-carbon ated drink Reclast ND 49038755109 5 MG/100ML Active not Intravenous defined Nasonex ND 08628879788 50 MCG/ACT Active 2 sprays Nasally Once a in each day nostril Results No Known Results Summary Purpose eClinicalWorks Submission
--- OUTSIDE RECORDS SUMMARY | 2019-01-17 09:12 | XMS REPORT ---
:1945 Author Organization eClinicalWorks Care Team Providers Name Role Phone Refugio Crawford Provider Role Unavailable Allergies, Adverse Reactions, Alerts Substance Reaction Event Type Bactrim DS Info Not Available Drug Allergy Problems Problem Type Condition Code Onset Dates Condition Status Assessment Depression with anxiety F41.8 Active Problem Depression with anxiety F41.8 Active Problem Chronic obstructive pulmonary J44.9 Active disease, unspecified COPD type Problem Seasonal allergies J30.2 Active Problem 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 Problem Fatty liver K76.0 Active Problem Shingles B02.9 Active Problem 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 Problem Age-related osteoporosis without M81.0 Active current pathological fracture Medications Medication Code Code Instructions Start End Status Dosage System Date Date Vitamin D [facility] 61505479476 2000 UNIT Active 1 tablet Orally Once a day Spiriva Respimat [facility] 96721978422 2.5 microgram Active 2 puffs Inhaled Once a day Revatio [facility] 17118386653 20 MG Orally Active 0.5 tablet Two times a day Citalopram [facility] 82543879007 40 MG Orally Active 1 tablet Hydrobromide Once a day Questran [facility] 58790658410 4 GM Orally Active 1 packet Twice a day mixed with water or non-carbona joanna drink Acyclovir ND 38362012012 200 MG Orally Active 1 capsule Three times a day Nasonex [facility] 64748324087 50 MCG/ACT Active 2 sprays in Nasally Once a each day nostril Symbicort [facility] 87119592432 80-4.5 MCG/ACT Active 2 puffs Inhalation Twice a day Claritin [facility] 54843876123 10 MG Orally Active 1 tablet Once a day Mucinex Maximum [facility] 89123539475 1200 MG Orally Active 1 tablet as Strength every 12 hrs needed Glucosamine ND 08561728037 500 MG Orally Active 1 capsule Three times a with a meal day Celexa [facility] 01877639298 40 MG Orally Active 1 tablet Once a day Xanax [facility] 02613775873 0.5 MG Orally Active 1 tablet TID PRN severe anxiety [place] [address] [facility] [address] MG Active 1 capsule Orally Once a day Montelukast [facility] 28829835658 10 MG once a Active TAKE 1 Sodium day TABLET BY MOUTH ONCE A DAY IN THE EVENING Prolia [facility] 63226750759 60 MG/ML Active as directed Subcutaneous ProAir HFA [facility] 68978785212 108 (90 Base) Active 2 puffs as MCG/ACT needed Inhalation every 6 hrs Albuterol [facility] 24704195716 (2.5 MG/3ML) Active 3 ml as Sulfate 0.083% needed Inhalation Three times a day Results No Known Results Summary Purpose eClinicalWorks Submission
--- OUTSIDE RECORDS SUMMARY | 2019-01-17 09:12 | XMS REPORT ---
:1945 Author Organization eClinicalWorks Care Team Providers Name Role Phone Ty Refugio Provider Role Unavailable Allergies No Known Allergies Problems Problem Type Condition Code Onset Dates Condition Status Problem Depression with anxiety F41.8 Active Problem [...] Status Dosage System Date Date Vitamin D [facility] 06441493418 2000 UNIT Active 1 tablet Orally Once a day Nasonex [facility] 47791946264 50 MCG/ACT Active 2 sprays in Nasally Once a each day nostril Montelukast [facility] 54513139176 10 MG once a Active TAKE 1 Sodium day TABLET BY MOUTH ONCE A DAY IN THE EVENING Symbicort [facility] 20785524544 160-4.5 MCG/ACT Active 2 puffs Inhalation Twice a day Celexa [facility] 41595623920 40 MG Orally Active 1 tablet Once a day Glucosamine [facility] 62142118548 500 MG Orally Active 1 capsule Three times a with a meal day Revatio [facility] 97019570541 20 MG Orally Active 0.5 tablet Two times a day Albuterol [facility] 33216704403 (2.5 MG/3ML) Active 3 ml as Sulfate 0.083% needed Inhalation Three times a day ProAir HFA [facility] 73502773508 108 (90 Base) Active INHALE TWO MCG/ACT PUFFS BY MOUTH EVERY 6 HOURS NEEDED Mucinex Maximum [facility] 51008097018 1200 MG Orally Active 1 tablet as Strength every 12 hrs needed Citalopram [facility] 24637288812 40 MG Orally Active 1 tablet Hydrobromide Once a day Xanax [facility] 34488748004 0.5 MG Orally Active 1 tablet TID PRN severe anxiety Questran [facility] 52323363585 4 GM Orally Active 1 packet Twice a day mixed with water or non-carbona joanna drink Claritin [facility] 18038496367 10 MG Orally Active 1 tablet Once a day Acyclovir [facility] 14313195836 200 MG Orally Active 1 capsule Three times a day Prolia [facility] 07851161094 60 MG/ML Active as directed Subcutaneous Spiriva Respimat [facility] 06180294506 2.5 microgram Active 2 puffs Inhaled Once a day [place] 3 [facility] [address] MG Active 1 capsule Orally Once a day Results No Known Results Summary Purpose eClinicalWorks Submission
--- OUTSIDE RECORDS SUMMARY | 2019-01-17 09:12 | XMS REPORT ---
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 Assessment Age-related osteoporosis without M81.0 Active current pathological fracture Assessment Seasonal allergies J30.2 Active Assessment 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 Medications Medication Code Code Instructions Start End Status Dosage System Date Date Vitamin D [facility] 76300782215 2000 UNIT Active 1 tablet Orally Once a day Flovent HFA [facility] 75381744365 220 MCG/ACT Active 1 puff Inhalation Twice a day Oseltamivir [facility] 91697899071 75 MG Orally May 25, Active 1 capsule Phosphate Twice a day 2017 Questran [facility] 48747857554 4 GM Orally Active 1 packet Twice a day mixed with water or non-carbona joanna drink Prolia [facility] 19182986050 60 MG/ML Active as directed Subcutaneous Singulair ND 86408336775 10 MG Orally Inactive 1 tablet in Once a day the evening Reclast ND 39915106465 5 MG/100ML Jun 07, Inactive not defined Intravenous 2017 ProAir HFA [facility] 82636599742 108 (90 Base) Active 2 puffs as MCG/ACT needed Inhalation every 6 hrs Symbicort ND 33448632808 80-4.5 MCG/ACT Active 2 puffs Inhalation Twice a day Nasonex [facility] 87330308816 50 MCG/ACT Active 2 sprays in Nasally Once a each day nostril Montelukast [facility] 47578113602 10 MG once a Active TAKE 1 Sodium day TABLET BY MOUTH ONCE A DAY IN THE EVENING Celexa [facility] 66943877563 40 MG Orally Active 1 tablet Once a day Claritin [facility] 63717366399 10 MG Orally Active 1 tablet Once a day Xanax [facility] 25889183276 0.5 MG Orally Active 1 tablet TID PRN severe anxiety Spiriva [facility] 23540802661 2.5 microgram Active 2 puffs Respimat Inhaled Once a day Results No Known Results Summary Purpose eClinicalWorks Submission
--- OUTSIDE RECORDS SUMMARY | 2019-01-17 09:12 | XMS REPORT ---
:1945 Author Organization eClinicalWorks Care Team Providers Name Role Phone Refugio Crawford Provider Role Unavailable Allergies, Adverse Reactions, Alerts Substance Reaction Event Type Bactrim DS Info Not Available Drug Allergy Problems Problem Type Condition Code Onset Dates Condition Status Assessment Medicare annual wellness visit, Z00.00 Active subsequent Problem Depression with anxiety F41.8 Active Problem Chronic obstructive pulmonary J44.9 Active disease, unspecified COPD type Problem Seasonal allergies J30.2 Active Problem 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 Problem Fatty liver K76.0 Active Problem Shingles B02.9 Active Problem 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 Problem Age-related osteoporosis without M81.0 Active current pathological fracture Medications Medication Code Code Instructions Start End Status Dosage System Date Date Nasonex [facility] 19789041006 50 MCG/ACT Active 2 sprays in Nasally Once a each day nostril ProAir HFA [facility] 41335438765 108 (90 Base) Active 2 puffs as MCG/ACT needed Inhalation every 6 hrs Revatio [facility] 66190019515 20 MG Orally Active 0.5 tablet Two times a day Glucosamine ND 85105607606 500 MG Orally Active 1 capsule Three times a with a meal day Celexa [facility] 38795733944 40 MG Orally Active 1 tablet Once a day Acyclovir ND 05505718814 200 MG Orally Active 1 capsule Three times a day Prolia [facility] 94054929173 60 MG/ML Active as directed Subcutaneous Montelukast [facility] 02876215022 10 MG once a Active TAKE 1 Sodium day TABLET BY MOUTH ONCE A DAY IN THE EVENING Symbicort [facility] 98029235562 80-4.5 MCG/ACT Active 2 puffs Inhalation Twice a day Mucinex Maximum [facility] 76725034828 1200 MG Orally Active 1 tablet as Strength every 12 hrs needed Citalopram [facility] 56457402998 40 MG Orally Active 1 tablet Hydrobromide Once a day Xanax [facility] 24798525002 0.5 MG Orally Active 1 tablet TID PRN severe anxiety Questran [facility] 23239745362 4 GM Orally Active 1 packet Twice a day mixed with water or non-carbona joanna drink [place] 3 [facility] [address] MG Active 1 capsule Orally Once a day Claritin [facility] 27139499799 10 MG Orally Active 1 tablet Once a day Spiriva Respimat [facility] 35361922847 2.5 microgram Active 2 puffs Inhaled Once a day Vitamin D [facility] 02339263738 2000 UNIT Active 1 tablet Orally Once a day Albuterol [facility] 35769146709 (2.5 MG/3ML) Active 3 ml as Sulfate 0.083% needed Inhalation Three times a day Results No Known Results Summary Purpose eClinicalWorks Submission
--- OUTSIDE RECORDS SUMMARY | 2019-01-17 09:12 | XMS REPORT ---
:1945 Author Organization eClinicalWorks Care Team Providers Name Role Phone CrawfordHuh Provider Role Unavailable Allergies, Adverse Reactions, Alerts [...] Start End Status Dosage System Date Date Revatio [facility] 01308616300 20 MG Orally Active 0.5 tablet Two times a day Questran [facility] 88192057038 4 GM Orally Active 1 packet Twice a day mixed with water or non-carbon ated drink Mucinex Maximum [facility] 55732492445 1200 MG Orally Active 1 tablet Strength every 12 hrs as needed Claritin [facility] 14313766787 10 MG Orally Active 1 tablet Once a day Questran [facility] 38939242740 4 GM Orally Active 1 packet Twice a day mixed with water or non-carbon ated drink Prolia [facility] 76054170692 60 MG/ML Active as Subcutaneous directed Vitamin D [facility] 87998261336 2000 UNIT Active 1 tablet Orally Once a day Citalopram [facility] [address]-87 40 MG Orally Active 1 tablet Hydrobromide Once a day Glucosamine ND 45846396690 500 MG Orally Active 1 capsule Three times a with a day meal [place] 3 [facility] [address] MG Active 1 capsule Orally Once a day Nasonex [facility] 74209832821 50 MCG/ACT Active 2 sprays Nasally Once a in each day nostril Nasonex ND 78905365721 50 MCG/ACT Active 2 sprays Nasally Once a in each day nostril ProAir HFA [facility] 30979720945 108 (90 Base) Active 2 puffs as MCG/ACT needed Inhalation every 6 hrs Celexa [facility] 28308574639 40 MG Orally Active 1 tablet Once a day Xanax [facility] 43463070170 0.5 MG Orally Active 1 tablet TID PRN severe anxiety Albuterol [facility] 75296962417 (2.5 MG/3ML) Active 3 ml as Sulfate 0.083% needed Inhalation Three times a day Acyclovir [facility] 68918536921 200 MG Orally Active 1 capsule Three times a day Montelukast [facility] 45676583853 10 MG once a Active TAKE 1 Sodium day TABLET BY MOUTH ONCE A DAY IN THE EVENING Spiriva [facility] 84806462987 2.5 microgram Active 2 puffs Respimat Inhaled Once a day Flovent HFA [facility] 40627000827 220 MCG/ACT Active 1 puff Inhalation Twice a day Symbicort [facility] 18251676438 80-4.5 MCG/ACT Active 2 puffs Inhalation Twice a day Claritin [facility] 70830842478 10 MG Orally Active 1 tablet Once a day Results No Known Results Summary Purpose eClinicalWorks Submission
--- OUTSIDE RECORDS SUMMARY | 2019-01-17 09:12 | XMS REPORT ---
:1945 Author Organization eClinicalWorks Care Team Providers Name Role Phone Hu Crawfordh Provider Role Unavailable Allergies, Adverse Reactions, Alerts [...] Start End Status Dosage System Date Date Spiriva Respimat [facility] 20430960880 2.5 microgram Active 2 puffs Inhaled Once a day Vitamin D [facility] 96251718070 2000 UNIT Active 1 tablet Orally Once a day Symbicort ND 78300798019 80-4.5 MCG/ACT Active 2 puffs Inhalation Twice a day Mucinex Maximum [facility] 68211357556 1200 MG Orally Active 1 tablet as Strength every 12 hrs needed Xanax ND 40553379366 0.5 MG Orally Active 1 tablet TID PRN severe anxiety Revatio [facility] 99214278473 20 MG Orally Active 0.5 tablet Two times a day [place] 3 [facility] [address] MG Active 1 capsule Orally Once a day Claritin ND 39639920593 10 MG Orally Active 1 tablet Once a day Montelukast ND 72587277702 10 MG once a Active TAKE 1 Sodium day TABLET BY MOUTH ONCE A DAY IN THE EVENING Acyclovir ND 56824212102 200 MG Orally Active 1 capsule Three times a day Albuterol ND 83715072732 (2.5 MG/3ML) Active 3 ml as Sulfate 0.083% needed Inhalation Three times a day Questran [facility] 27595924422 4 GM Orally Active 1 packet Twice a day mixed with water or non-carbona joanna drink Celexa [facility] 55829897934 40 MG Orally Active 1 tablet Once a day Glucosamine [facility] 35945752303 500 MG Orally Active 1 capsule Three times a with a meal day ProAir HFA [facility] 21214377472 108 (90 Base) Active 2 puffs as MCG/ACT needed Inhalation every 6 hrs Prolia [facility] 71117952455 60 MG/ML Active as directed Subcutaneous Nasonex [facility] 18773206073 50 MCG/ACT Active 2 sprays in Nasally Once a each day nostril Citalopram [facility] 49222772154 40 MG Orally Active 1 tablet Hydrobromide Once a day Results No Known Results Summary Purpose eClinicalWorks Submission
[2019-01-17] MEDS ORDERED: LEVALBUTEROL 1.25 MG/3 ML NEB ONE (09:51)
[2019-01-17] MEDS ORDERED: NA CHLORIDE 0.9% 500 ML ONE ×2 (09:51→13:06)
[2019-01-17] MEDS ORDERED: HYDROCODONE/APAP 10/325 TAB ONE (09:51)
[2019-01-17] MEDS ORDERED: METHYLPREDNISOLONE 125 MG INJ ONE (09:51)
--- NOTE | 2019-01-17 10:11 | RAD REPORT ---
EXAM DESCRIPTION: Jade Single View01/17/2019 9:52 am CLINICAL HISTORY: Chest pain COMPARISON: 2017 FINDINGS: Moderate bilateral interstitial lung opacities are without obvious change. Lungs appear clear of acute infiltrate. The heart is normal size
[2019-01-17 10:12] LABS: Absolute Lymphocytes (CBC) 1.9 K/uL (0.7-4.9); Basophils % 1.1 % (0-1.3); Eosinophils % 2.1 % (0-4.4); Hematocrit 36.5 % (36.0-45.0); Lymphocytes % 18.6 % (15.3-44.8); MPV 7.4 fL (7.6-11.3); Monocytes % 10.8 % (3.3-12.3); RBC Red Blood Cell Count 4.03 M/uL (3.86-4.86)
--- NOTE | 2019-01-17 10:14 | EKG ---
Test Date: 2019-01-17 Test Time: 09:30:11 Media Marketing Coordinator: LIAN MEASUREMENT RESULTS: Intervals: Rate: 69 VA: 106 QRSD: 88 QT: 410 QTc: 439 [place]: P: 81 VA: 106 QRS: -80 T: -12 INTERPRETIVE STATEMENTS: Sinus rhythm with short VA with premature atrial complexes with aberrant conduction Pulmonary disease pattern Left anterior fascicular block Cannot rule out Inferior infarct (masked by fascicular block?), age undetermined Incomplete right bundle branch block Abnormal ECG Compared to ECG 08/01/2016 12:18:56 Atrial premature complex(es) now present Electronically Signed On 01-17-19 10:15:33 CDT by Dave Hurst
[2019-01-17] MEDS ORDERED: HYDROCODONE/APAP 5/325 MG TAB ONE (10:17)
[2019-01-17 10:20] LABS: ALT/SGPT 19 U/L (12-78); AST/SGOT 16 U/L (15-37); Albumin 3.4 g/dL (3.4-5.0); Alkaline Phosphatase 75 U/L (45-117); BUN Blood Urea Nitrogen 7 mg/dL (7-18); Bicarbonate 26 mmol/L (21-32); Bilirubin Direct 0.1 mg/dL (0-0.2); Bilirubin Total 0.4 mg/dL (0.2-1.0); Glucose Level 88 mg/dL (74-106); Lipase 96 U/L (73-393); NT PRO-BNP 708 pg/mL (<450); Potassium 3.5 mmol/L (3.5-5.1); Protein, Total 7.1 g/dL (6.4-8.2); Sodium Level 138 mmol/L (136-145); Troponin (Emerg Dept Use Only) < 0.02 ng/mL (0.0-0.045)
--- NOTE | 2019-01-17 12:32 | RAD REPORT ---
EXAM DESCRIPTION: CT - Chest For Pe Angio - 01/17/2019 12:11 pm CLINICAL HISTORY: Chest pain COMPARISON: 2013 TECHNIQUE: Dynamically enhanced axial 3 mm thick images of the chest were obtained during administra tion of <100> mL Isovue 370 IV contrast. Coronal and oblique reconstruction images were generated and reviewed. Exam utilizes a protocol for optimal evaluation of pulmonary arterial tree. Maximum intensity projections 3D imaging was utilized All CT scans are performed using dose optimization technique as appropriate and may include automated exposure control or mA/KV adjustment according to patient size. FINDINGS: A pulmonary embolus is not seen. A thoracic aortic aneurysm is not noted. A pleural effusion is not seen. A pericardial effusion is not seen. A mild left lower lobe opacity Marked COPD is present. Chronic appearing lung opacities are noted. Postsurgical changes involve the left lung. IMPRESSION: Negative for a pulmonary embolism. Mild left lower lobe opacity may indicate a mild pneumonia
[2019-01-17] MEDS ORDERED: IPRATROPIUM BROM 0.5MG/2.5ML ONE (13:06)
--- NOTE | 2019-01-17 13:54 | EDPHYS ---
Physician Documentation [facility] Name: Seema Romo Age: 73 yrs Sex: Female : 1945 Arrival Date: 01/17/2019 Time: 09:10 Bed 3 Private MD: ED Physician Rufino Du HPI: 01/17 09:47 This 73 yrs old Female presents to ER via Wheelchair with complaints of rn Breathing Difficulty. 09:47 The patient has shortness of breath at rest, with light activity. Onset: The rn symptoms/episode began/occurred at an unknown time. Duration: The symptoms are continuous. The patient's shortness of breath is aggravated by exertion, light activity. Severity of symptoms: At their worst the symptoms were moderate in the emergency department the symptoms are unchanged. The patient has experienced similar episodes in the past. Reports increases sob, unknown onset, reports has been going to pulmonary rehab lately, also has been having right sided chest wall pain for > 1 week, doesn't recall trauma or acute change, mentioned it to her other providers without clear etiology. Coughed yesterday and got worse. NO hemoptysis. Does not feel sick like pneumonia. Always on oxygen at home, 3L. . Historical: - Allergies: 09:30 Bactrim; iw 09:30 Sulfa (Sulfonamide Antibiotics); iw - Home Meds: 09:36 Symbicort 160-4.5 mcg/actuation inhalation HFAA 2 puffs 2 times per day [Active]; iw [place]-3 350 mg-235 mg- 90 mg-597 mg oral cpDR daily [Active]; turmeric root extract oral oral daily [Active]; citalopram 40 mg tab 1 tab once daily [Active]; montelukast 10 mg oral tab 1 tab once daily [Active]; Mucinex 1,200 mg oral Ta12 daily [Active]; Glucosamine 500 mg oral tab daily [Active]; ProAir HFA 90 mcg/actuation inhalation HFAA 2 puffs every 4 hours [Active]; albuterol sulfate 2.5 mg /3 mL (0.083 %) Inhl nebu 3 mL 4 times per day [Active]; acyclovir 200 mg Oral cap daily [Active]; Vitamin D Oral 2000 unit daily [Active]; Xanax 0.5 mg Oral tab as needed [Active]; Letairis 5 mg oral tab 1 tab once daily [Active]; Spiriva Respimat 2.5 mcg/actuation inhalation mist 2 puffs once daily [Active]; Prolia 60 mg/mL subcutaneous syrg 1 mL every 6 mo [Active]; - PMHx: 09:30 Shingles; COPD; Depression; Anxiety; neuropathy; Osteoporosis; Fatty Liver; iw degenerative joint disease; Mycobacterium Avium Complex; - PSHx: 09:30 Left upper lobectomy; left kidney cyst; Tonsillectomy; ; Tubal ligation; iw - Immunization history:: Adult Immunizations up to date. - Social history:: Smoking status: Patient/guardian denies using tobacco. - Ebola Screening: : Patient negative for fever greater than or equal to 101.5 degrees Fahrenheit, and additional compatible Ebola Virus Disease symptoms Patient denies exposure to infectious person Patient denies travel to an Ebola-affected area in the 21 days before illness onset No symptoms or risks identified at this time. - Family history:: not pertinent. - Hospitalizations: : No recent hospitalization is reported. ROS: 09:47 Constitutional: Negative for fever, chills, and weight loss, Eyes: Negative for injury, rn pain, redness, and discharge, Neck: Negative for injury, pain, and swelling, Cardiovascular: Negative for palpitations, and edema, Respiratory: + right chest pain with sob and cough Abdomen/GI: Negative for abdominal pain, nausea, vomiting, diarrhea, and constipation, MS/Extremity: Negative for injury and deformity, Skin: Negative for injury, rash, and discoloration, Neuro: Negative for headache, weakness, numbness, tingling, and seizure. Exam: 09:47 Constitutional: This is a well developed, well nourished patient who is awake, alert, rn + mild to moderate resp distress Head/Face: Normocephalic, atraumatic. ENT: dry MM, no stridor or swelling Cardiovascular: Regular rate and rhythm. No pulse deficits. Respiratory: + moderate tachypnea, diminished breath sounds bilateral bases, faint wheezing Abdomen/GI: soft, non-tender MS/ Extremity: Pulses equal, no cyanosis. Neurovascular intact. Full, normal range of motion. Equal circumference. Neuro: Awake and alert, GCS 15, oriented to person, place, time, and situation. Cranial nerves II-XII grossly intact. Motor strength 5/5 in all extremities. Sensory grossly intact. Vital Signs: 09:15 Pulse Ox 75% on 2 lpm NC; iw 09:21 BP 109 / 64; Pulse 75; Resp 24 S; Pulse Ox 98% on 4 lpm NC; Weight 39.92 kg (R); Height iw 4 ft. 9 in. (144.78 cm); Pain 6/10; 10:02 BP 113 / 55; Pulse 68; Resp 18; Temp 97.7(TE); Pulse Ox 100% on Nebulizer Mask; ss 11:02 BP 112 / 57; Pulse 84; Resp 20; Pulse Ox 95% on 4 lpm NC; ph 12:20 BP 122 / 61; Pulse 104; Resp 23; Pulse Ox 94% on 3 lpm NC; Pain 3/10; ss 13:30 BP 108 / 60; Pulse 86; Resp 18; Pulse Ox 94% on 3 lpm NC; Pain 3/10; ss 14:58 BP 110 / 53; Pulse 90; Resp 23; Pulse Ox 95% on 3 lpm NC; Pain 0/10; ss 15:55 Resp 32; Pulse Ox 88% on 3 lpm NC; ss 15:57 Pulse 92; Resp 24; Pulse Ox 94% on 3 lpm NC; Pain 0/10; ss 09:21 Body Mass Index 19.04 (39.92 kg, 144.78 cm) iw MDM: 09:21 Patient medically screened. rn 13:49 Differential diagnosis: Bronchitis pneumonia, Pneumothorax pulmonary edema, Pulmonary rn Embolism. Data reviewed: vital signs, nurses notes, lab test result(s), EKG, radiologic studies, CT scan, plain films, and as a result, I will discharge patient. Counseling: I had a detailed discussion with the patient and/or guardian regarding: the historical points, exam findings, and any diagnostic results supporting the discharge/admit diagnosis, lab results, radiology results, the need for outpatient follow up, to return to the emergency department if symptoms worsen or persist or if there are any questions or concerns that arise at home. Response to treatment: the patient's symptoms have markedly improved after treatment, the patient's condition has returned to base line, and as a result, I will discharge patient. 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 01/17 09:27 Order name: Blood Culture Adult (2) rn 01/17 09:27 Order name: BMP; Complete Time: 10:25 rn 01/17 09:27 Order name: CBC with Diff; Complete Time: 10:19 rn 01/17 09:27 Order name: Hepatic Function; Complete Time: 10:25 rn 01/17 09:27 Order name: Lipase; Complete Time: 10:25 rn 01/17 09:27 Order name: NT PRO-BNP; Complete Time: 10:25 rn 01/17 09:27 Order name: XRAY CXR (1 view); Complete Time: 10:19 rn 01/17 09:27 Order name: Troponin (emerg Dept Use Only); Complete Time: 10:25 rn 01/17 11:15 Order name: CT Chest For PE Angio; Complete Time: 13:35 rn 01/17 09:27 Order name: EKG; Complete Time: 09:31 rn 01/17 09:27 Order name: Cardiac monitoring; Complete Time: 09:39 rn 01/17 09:27 Order name: EKG - Nurse/Tech; Complete Time: 09:39 rn 01/17 09:27 Order name: IV Saline Lock; Complete Time: 09:39 rn 01/17 09:27 Order name: Labs collected and sent; Complete Time: 09:39 rn 01/17 09:27 Order name: O2 Per Protocol; Complete Time: 09:39 rn 01/17 09:27 Order name: O2 Sat Monitoring; Complete Time: 09:39 rn Administered Medications: 09:55 Drug: NS 0.9% 500 ml Route: IV; Rate: bolus; Site: right forearm; ss 12:19 Follow up: IV Status: Completed infusion; IV Intake: 500ml ss 09:56 Drug: SOLU-Medrol 125 mg Route: IVP; Site: right forearm; ss 12:19 Follow up: Response: No adverse reaction ss 09:56 Drug: Xopenex (3) 1.25 mg Route: Inhalation; ss 09:56 Not Given (pt refused. Is requesting smaller dose. Dr. Du notified): [place] 10 mg-325 ss mg 1 tabs PO once 10:01 Drug: [place] 5 mg-325 mg 1 tabs Route: PO; ss 12:19 Follow up: Response: No adverse reaction; Pain is decreased ss 12:53 Drug: AtroVENT Aerosol 0.5 mg Route: Inhalation; ss 12:53 Drug: NS 0.9% 500 ml Route: IV; Rate: bolus; Site: right forearm; ss 14:28 Follow up: IV Status: Completed infusion; IV Intake: 500ml ss 14:15 Drug: LevaQUIN 750 mg Volume: 150 ml; Route: IVPB; Infused Over: 90 mins; Site: right ss forearm; 15:49 Follow up: Response: No adverse reaction; IV Status: Completed infusion ph 15:55 Follow up: IV Status: Completed infusion ss Disposition: 01/17/19 13:53 Discharged to Home. Impression: Chronic obstructive pulmonary disease with acute lower respiratory infection, Pneumonia. - Condition is Stable. - Discharge Instructions: Community-Acquired Pneumonia, Adult, Chronic Obstructive Pulmonary Disease Exacerbation. - Prescriptions for Levaquin 750 mg Oral Tablet - take 1 tablet by ORAL route once daily for 10 days; 10 tablet. Prednisone 20 mg Oral Tablet - take 3 tablet by ORAL route once daily for 5 days; 15 tablet. - Medication Reconciliation Form, Thank You Letter, Antibiotic Education, Prescription Opioid Use form. - Follow up: Private Physician; When: 1 - 2 days; Reason: Recheck today's complaints, Re-evaluation by your physician. - Problem is new. - Symptoms have improved. Signatures: Dispatcher [employer] Delfina Durham RN RN Rufino Du MD MD rn Smirch, Shelby, RN RN Hetal Montanez RN ph Corrections: (The following items were deleted from the chart) 16:08 13:53 01/17/2019 13:53 Discharged to Home. Impression: Chronic obstructive pulmonary ss disease with acute lower respiratory infection; Pneumonia. Condition is Stable. Forms are Medication Reconciliation Form, Thank You Letter, Antibiotic Education, Prescription Opioid Use. Follow up: Private Physician; When: 1 - 2 days; Reason: Recheck today's complaints, Re-evaluation by your physician. Problem is new. Symptoms have improved. rn
--- NOTE | 2019-01-17 13:54 | ER ---
Nurse's Notes [facility] Name: Seema Romo Age: 73 yrs Sex: Female : 1945 Arrival Date: 01/17/2019 Time: 09:10 Bed 3 Private MD: Diagnosis: Chronic obstructive pulmonary disease with acute lower respiratory infection;Pneumonia Presentation: 01/17 09:22 Presenting complaint: Patient states: has had pain to right ribs X 2 weeks, +cough, non iw productive, SOB on exertion, hx of COPD, denies fever, states she coughed really hard last night and the pain brought her to tears, pt arrives to ER, 75% on home O2, labored breathing. Transition of care: patient was not received from another setting of care. Onset of symptoms was January 03, 2019. Risk Assessment: Do you want to hurt yourself or someone else? Patient reports no desire to harm self or others. Initial Sepsis Screen: Does the patient meet any 2 criteria? No. Patient's initial sepsis screen is negative. Does the patient have a suspected source of infection? No. Patient's initial sepsis screen is negative. Care prior to arrival: None. 09:22 Method Of Arrival: Wheelchair iw 09:22 Acuity: VADIM 2 iw Historical: - Allergies: 09:30 Bactrim; iw 09:30 Sulfa (Sulfonamide Antibiotics); iw - Home Meds: 09:36 Symbicort 160-4.5 mcg/actuation inhalation HFAA 2 puffs 2 times per day [Active]; iw Sandstone-3 350 mg-235 mg- 90 mg-597 mg oral cpDR daily [Active]; turmeric root extract oral oral daily [Active]; citalopram 40 mg tab 1 tab once daily [Active]; montelukast 10 mg oral tab 1 tab once daily [Active]; Mucinex 1,200 mg oral Ta12 daily [Active]; Glucosamine 500 mg oral tab daily [Active]; ProAir HFA 90 mcg/actuation inhalation HFAA 2 puffs every 4 hours [Active]; albuterol sulfate 2.5 mg /3 mL (0.083 %) Inhl nebu 3 mL 4 times per day [Active]; acyclovir 200 mg Oral cap daily [Active]; Vitamin D Oral 2000 unit daily [Active]; Xanax 0.5 mg Oral tab as needed [Active]; Letairis 5 mg oral tab 1 tab once daily [Active]; Spiriva Respimat 2.5 mcg/actuation inhalation mist 2 puffs once daily [Active]; Prolia 60 mg/mL subcutaneous syrg 1 mL every 6 mo [Active]; - PMHx: 09:30 Shingles; COPD; Depression; Anxiety; neuropathy; Osteoporosis; Fatty Liver; iw degenerative joint disease; Mycobacterium Avium Complex; - PSHx: 09:30 Left upper lobectomy; left kidney cyst; Tonsillectomy; ; Tubal ligation; iw - Immunization history:: Adult Immunizations up to date. - Social history:: Smoking status: Patient/guardian denies using tobacco. - Ebola Screening: : Patient negative for fever greater than or equal to 101.5 degrees Fahrenheit, and additional compatible Ebola Virus Disease symptoms Patient denies exposure to infectious person Patient denies travel to an Ebola-affected area in the 21 days before illness onset No symptoms or risks identified at this time. - Family history:: not pertinent. - Hospitalizations: : No recent hospitalization is reported. Screenin:30 Abuse screen: Denies threats or abuse. Denies injuries from another. Nutritional ss screening: No deficits noted. Tuberculosis screening: Never had TB. Fall Risk None identified. Assessment: 09:30 General: Appears uncomfortable, Behavior is cooperative, Denies fever. Pain: Complains ss of pain in chest Pain currently is 6 out of 10 on a pain scale. Quality of pain is described as sharp, tender, Pain began becoming worse over the past few weeks Is episodic, Aggravated by coughing. Neuro: Level of Consciousness is awake, alert, obeys commands. Cardiovascular: Capillary refill is brisk is sluggish in bilateral fingers Rhythm is irregular. Respiratory: Airway is patent Respiratory effort is even, unlabored, Respiratory pattern is regular, symmetrical, Breath sounds with wheezes bilaterally. GI: Abdomen is non-distended, Patient currently denies abdominal pain, diarrhea, nausea, vomiting. EENT: Oral mucosa is moist. Derm: Skin is fragile, is thin, with poor turgor Skin is dry, Skin is normal, pink, Skin temperature is warm. Musculoskeletal: Circulation, motion, and sensation intact. Range of motion: intact in all extremities. 10:30 Reassessment: Patient appears in no apparent distress at this time. Patient and/or ss family updated on plan of care and expected duration. Pain level reassessed. Patient is alert, oriented x 3, equal unlabored respirations, skin warm/dry/pink. Patient states feeling better. Reassessment: Patient and/or family updated on plan of care and expected duration. Pain level reassessed. awaiting disposition Patient states symptoms have improved. Respiratory: Breath sounds are clear bilaterally. 12:20 Reassessment: Patient appears in no apparent distress at this time. Patient and/or ss family updated on plan of care and expected duration. Pain level reassessed. Patient back from CT, awaiting results Patient states feeling better. 14:26 Reassessment: NAD. Patient reports she is feeling much better. Levaquin infusing at this time, awaiting completion prior to discharge. 15:55 Reassessment: Pt insists that she is okay to go home. It is observed when helping ss patient get dressed that she becomes very short of breath. RR 32. After resting for 1.5 minutes after exerting herself, respirations return to 23-24 breaths per minutes. Awaiting a ride home. Pt reports her ride is on their way. Dr. Du notified. Vital Signs: 09:15 Pulse Ox 75% on 2 lpm NC; iw 09:21 BP 109 / 64; Pulse 75; Resp 24 S; Pulse Ox 98% on 4 lpm NC; Weight 39.92 kg (R); Height iw 4 ft. 9 in. (144.78 cm); Pain 6/10; 10:02 BP 113 / 55; Pulse 68; Resp 18; Temp 97.7(TE); Pulse Ox 100% on Nebulizer Mask; ss 11:02 BP 112 / 57; Pulse 84; Resp 20; Pulse Ox 95% on 4 lpm NC; ph 12:20 BP 122 / 61; Pulse 104; Resp 23; Pulse Ox 94% on 3 lpm NC; Pain 3/10; ss 13:30 BP 108 / 60; Pulse 86; Resp 18; Pulse Ox 94% on 3 lpm NC; Pain 3/10; ss 14:58 BP 110 / 53; Pulse 90; Resp 23; Pulse Ox 95% on 3 lpm NC; Pain 0/10; ss 15:55 Resp 32; Pulse Ox 88% on 3 lpm NC; ss 15:57 Pulse 92; Resp 24; Pulse Ox 94% on 3 lpm NC; Pain 0/10; ss 09:21 Body Mass Index 19.04 (39.92 kg, 144.78 cm) iw ED Course: 09:10 Patient arrived in ED. as 09:21 Rufino Du MD is Attending Physician. rn 09:25 Triage completed. iw 09:30 Patient has correct armband on for positive identification. Bed in low position. Call ss light in reach. 09:31 Arm band placed on. iw 09:40 Inserted saline lock: 22 gauge in right forearm, using aseptic technique. Blood ss collected. Patient maintains SpO2 saturation greater than 95% on room air. 09:52 XRAY CXR (1 view) In Process Unspecified. EDMS 09:56 Yamilka Scott, RN is Primary Nurse. ss 12:16 CT Chest For PE Angio In Process Unspecified. EDMS 15:57 No provider procedures requiring assistance completed. IV discontinued, intact, ss bleeding controlled, No redness/swelling at site. Pressure dressing applied. Administered Medications: 09:55 Drug: NS 0.9% 500 ml Route: IV; Rate: bolus; Site: right forearm; ss 12:19 Follow up: IV Status: Completed infusion; IV Intake: 500ml ss 09:56 Drug: SOLU-Medrol 125 mg Route: IVP; Site: right forearm; ss 12:19 Follow up: Response: No adverse reaction ss 09:56 Drug: Xopenex (3) 1.25 mg Route: Inhalation; ss 09:56 Not Given (pt refused. Is requesting smaller dose. Dr. Du notified): [place] 10 mg-325 ss mg 1 tabs PO once 10:01 Drug: [place] 5 mg-325 mg 1 tabs Route: PO; ss 12:19 Follow up: Response: No adverse reaction; Pain is decreased ss 12:53 Drug: AtroVENT Aerosol 0.5 mg Route: Inhalation; ss 12:53 Drug: NS 0.9% 500 ml Route: IV; Rate: bolus; Site: right forearm; ss 14:28 Follow up: IV Status: Completed infusion; IV Intake: 500ml ss 14:15 Drug: LevaQUIN 750 mg Volume: 150 ml; Route: IVPB; Infused Over: 90 mins; Site: right ss forearm; 15:49 Follow up: Response: No adverse reaction; IV Status: Completed infusion ph 15:55 Follow up: IV Status: Completed infusion ss Intake: 12:19 IV: 500ml; Total: 500ml. ss 14:28 IV: 500ml; Total: 1000ml. ss Outcome: 13:53 Discharge ordered by . rn 16:07 Discharged to home via wheelchair. ss 16:07 Condition: improved 16:07 Discharge instructions given to patient, Instructed on discharge instructions, follow up and referral plans. medication usage, Demonstrated understanding of instructions, follow-up care, medications, Prescriptions given X 2. 16:08 Patient left the ED. ss Signatures: Dispatcher [employer] EDMS Amber Nieto Irene, RN RN iw Rufino Du MD MD rn Smirch, Shelby, RN RN ss Hetal Montanez RN RN ph Corrections: (The following items were deleted from the chart) 09:31 09:21 Pulse Ox 98% 4 lpm Nasal Cannula; 39.92 kg Reported; Height 4 ft. 9 in.; BMI: iw 19.0; Pain 6/10; iw 15:58 15:55 Reassessment: Pt insists that she is okay to go home. It is observed when helping ss patient get dressed that she becomes very short of breath. RR 32. After resting for 1.5 minutes after exerting herself, respirations return to 23-24 breaths per minutes. Awaiting a ride home. Pt reports her ride is on their way. ss
[2019-01-17] MEDS ORDERED: Levofloxacin 750mg IV 750 MG/150 ML BAG IV ONE (14:14)
[2019-01-17 17:41] VITALS: TEMP 97.7
[2019-01-17 17:47] VITALS: BP 110/53
[2019-01-17 17:49] VITALS: O2SAT 94
== END 2019-01-17 16:08 | disposition home or self-care (01) ==
LOC: ER 09:07
DX: J44.0 Chronic obstructive pulmonary disease with (acute) lower respiratory infection (principal); J18.9 Pneumonia, unspecified organism; F32.9 Major depressive disorder, single episode, unspecified; F41.9 Anxiety disorder, unspecified; K76.0 Fatty (change of) liver, not elsewhere classified; Z88.1 Allergy status to other antibiotic agents; Z88.2 Allergy status to sulfonamides
CPT/HCPCS: 96365; 96361; 93005; 87040 ×2; 85025; 80048; 36415; 80076; 84484; 83690; 83880; 71275; 71045; 96375; 99285; 96366; Q9967; J2930

== ENCOUNTER 2019-03-19 20:02 | Emergency (ER) | payer OTHER, MEDICARE ==
--- OUTSIDE RECORDS SUMMARY | 2019-03-19 20:05 | XMS REPORT | Clinical Summary ---
:1945 Author Organization [facility] Address [address] [place] [address] Care Team Providers Name Role Phone Kwesikrystle Aixa Primary Care Provider Unavailable Allergies Active Allergy Reactions Severity Noted Date Comments Sulfa (Sulfonamide Antibiotics) 12/05/2015 Medications Medication Sig Dispensed Refills Start End Date Status Date ALPRAZolam (XANAX) 0 Active 0.5 MG tablet 6 SYMBICORT 80-4.5 0 Active mcg/actuation 6 inhaler citalopram (CeleXA) 0 Active 40 MG tablet 6 montelukast 0 Active (SINGULAIR) 10 mg 6 tablet SPIRIVA RESPIMAT 0 Active 2.5 mcg/actuation 6 mist Lactobacillus Take 1 tablet 0 Active acidoph-L.bulgar by mouth 3 (FLORANEX) 1 (three) times million cell tablet a day. albuterol (PROAIR Inhale 2 0 Active HFA,PROVENTIL puffs every 6 HFA,VENTOLIN HFA) (six) hours 90 mcg/actuation as needed for inhaler wheezing. cholecalciferol, Take 2,000 0 Active vitamin D3, Units by (VITAMIN D3) 2,000 mouth daily. unit capsule capsule diclofenac Apply 100 g 3 Active (VOLTAREN) 1 % gel topically 2 8 (two) times a day. acyclovir (ZOVIRAX) TAKE 1 180 capsule 0 Active 200 MG CAPSULE BY 9 capsuleIndications: MOUTH 2 Herpes infection TIMES A DAY cholestyramine 0 04/12/20 Discontinued (QUESTRAN) 4 gram 6 18 (Med List packet Cleanup) acyclovir (ZOVIRAX) TAKE 1 180 capsule 0 03/18/20 Discontinued 200 MG CAPSULE BY 8 18 (Reorder) capsuleIndications: MOUTH 2 Herpes infection TIMES A DAY acyclovir (ZOVIRAX) TAKE 1 180 capsule 0 06/25/20 Discontinued 200 MG CAPSULE BY 8 18 (Reorder) capsuleIndications: MOUTH 2 Herpes infection TIMES A DAY acyclovir (ZOVIRAX) TAKE 1 180 capsule 0 09/23/19 Discontinued 200 MG CAPSULE BY 9 19 (Reorder) capsuleIndications: MOUTH 2 Herpes infection TIMES A DAY acyclovir (ZOVIRAX) TAKE 1 180 capsule 0 12/29/19 Discontinued 200 MG CAPSULE BY 9 19 (Reorder) capsuleIndications: MOUTH 2 Herpes infection TIMES A DAY Hospital, Clinic, or Ordered Dose Route Frequency [...] pulmonary Seamus arterial hypertension MD Jerardo ([facility]) 08/09/2018 Hospital Encounter Radiology Mayra, Secondary pulmonary Seamus arterial hypertension MD Jerardo (HCC) 08/06/2018 Transcribe Orders Access Mayra, Secondary pulmonary Seamus arterial hypertension MD Jerardo ([facility]) (Primary Dx) 08/05/2018 Lab Lab Mayra, Pulmonary artery Seamus hypertension (HCC) MD Jerardo (Primary Dx) 06/25/2018 Refill Rheumatology Luis Evans, Herpes infection on chronic valacyclovir 05/19/2018 Hospital Encounter Procedural Cardiology Seamus Nunez MD 05/19/2018 Hospital Encounter Radiology Mayra, COPD, mild (HCC) Seamus Kurtz MD 05/12/2018 Transcribe Orders Access Mayra, COPD, mild (HCC) Seamus (Primary Dx) MD Jerardo 05/11/2018 Clinical Support Rheumatology 05/11/2018 Orders Only Rheumatology Matt Eckert Cynthia, MA postmenopausal (Primary Dx) 04/12/2018 Office Visit Rheumatology Luis Evans, Age-related osteoporosis without current pathological fracture (Primary Dx); Vitamin D deficiency disease; Shoulder arthritis; Abnormal findings on diagnostic imaging of other specified body structures ; Other osteoporosis without current pathological fracture 04/12/2018 Ancillary Radiology Luis Evans, Age-related Procedure osteoporosis without current pathological fracture 04/09/2018 Telephone Endocrinology Layla Vargas 04/02/2018 Telephone Internal Medicine Opal Johnson MA 03/19/2018 Telephone Endocrinology Layla Vargas 03/18/2018 Refill Rheumatology Luis Evans, Herpes infection on chronic valacyclovir after 03/18/2018 Immunizations Name Administration Dates Next Due FLUZONE QUAD PF 03/18/2017 Family History Medical History [...] Vital Signs Vital Sign Reading Time Taken Comments Blood Pressure 113/63 04/12/2018 11:07 AM CDT Pulse 58 04/12/2018 11:07 AM CDT Temperature 36.3 C (97.4 F) 04/12/2018 11:07 AM CDT Respiratory Rate - - Oxygen Saturation - - Inhaled Oxygen Concentration - - Weight 40.8 kg (90 lb) 08/09/2018 11:10 AM BILLET RECORDER Height 146.1 cm (4' 9.5") 08/09/2018 11:10 AM BILLET RECORDER Body Mass Index 19.14 08/09/2018 11:10 AM BILLET RECORDER Plan of Treatment Health Maintenance Due Date [...] 12:14 Secondary pulmonary Results for this PM BILLET RECORDER arterial procedure are in hypertension (HCC) the results section. ESTIMATED GFR Routine 08/09/2018 11:20 Results for this AM BILLET RECORDER procedure are in the results section. POC CREATININE Routine 08/09/2018 11:20 Results for this AM BILLET RECORDER procedure are in the results section. NM LUNG VENTILATION Routine 08/09/2018 10:44 Secondary pulmonary Results for this PERFUSION AM BILLET RECORDER arterial procedure are in hypertension (HCC) the results section. MARY TITER Routine 08/05/2018 1:28 Results for this PM BILLET RECORDER procedure are in the results section. THYROID STIMULATING Routine 08/05/2018 1:28 Pulmonary artery Results for this HORMONE PM BILLET RECORDER hypertension (HCC) procedure are in the results section. RIBONUCLEIC ANTIBODY Routine 08/05/2018 1:28 Pulmonary artery Results for this (WORK CHECKER) PM BILLET RECORDER hypertension (HCC) procedure are in the results section. VALDERRAMA ANTIBODY Routine 08/05/2018 1:28 Pulmonary artery Results for this PM BILLET RECORDER hypertension (HCC) procedure are in the results section. ANTI-NEUTROPHILIC Routine 08/05/2018 1:28 Pulmonary artery Results for this CYTOPLASMIC ABS PANEL PM BILLET RECORDER hypertension (HCC) procedure are in the results section. SCL-70 ANTIBODY Routine 08/05/2018 1:28 Pulmonary artery Results for this PM BILLET RECORDER hypertension (HCC) procedure are in the results section. ELAINE-1 ANTIBODY Routine 08/05/2018 1:28 Pulmonary artery Results for this PM BILLET RECORDER hypertension (HCC) procedure are in the results section. SS-B ANTIBODY Routine 08/05/2018 1:28 Pulmonary artery Results for this PM BILLET RECORDER hypertension (HCC) procedure are in the results section. SS-A ANTIBODY Routine 08/05/2018 1:28 Pulmonary artery Results for this PM BILLET RECORDER hypertension (HCC) procedure are in the results section. RHEUMATOID FACTOR Routine 08/05/2018 1:28 Pulmonary artery Results for this PM BILLET RECORDER hypertension (HCC) procedure are in the results section. MARY Routine 08/05/2018 1:28 Pulmonary artery Results for this PM BILLET RECORDER hypertension (HCC) procedure are in the results section. ECHOCARDIOGRAM 2D Routine 05/19/2018 1:00 Results for this COMPLETE W MMODE PM BILLET RECORDER procedure are in SPECTRAL COLOR DOPPLER the results (50282) section. CT CHEST WO CONTRAST Routine 05/19/2018 11:40 COPD, mild (HCC) Results for this AM BILLET RECORDER procedure are in the results section. T4, [...] current pathological the results fracture section. after 03/18/2018 Results Scl-70 antibody (11/09/2018 3:25 PM CDT)Only the most recent of2 resultswithin the time period is included. [facility] Scleroderma SCL-70 <0.2 0.0 - 0.9 [facility] Scl-70 antibody Negative [facility] Comment: JUDAISM Anti-Scl-70 (topoisomerase I) antibodies are found in patients with HOSPITAL systemic sclerosis (SSc or scleroderma), and have been reported to be predictive of diffuse cutaneous involvement. Anti-Scl-70 antibodies may also be present in patients with systemic lupus erythematosus (SLE). Specimen Serum Performing Organization Address City/State/Zipcode Phone Number [facility] DEPARTMENT OF PATHOLOGY AND [address] [place] [phone] GENOMIC MEDICINE [address] [address] Estimated GFR (11/09/2018 3:25 PM CDT)Only the most recent of2 resultswithin the time period is included. [facility] Estimated GFR 87 mL/min/1.73 [facility] Comment: HOSPITAL CatergoryUnitsInterpretation G1 >=90 Normal or high G2 60-89Mildly decreased G3j68-25Zkdvie to moderately decreased E1c46-40Zubqcashbh to severely decreased G4 15-29Severely decreased G5 <15Kidney failure The eGFR was calculated using the Chronic Kidney Disease Epidemiology Collaboration (CKD-EPI) equation. Interpretation is based on recommendations of the National Kidney Foundation-Kidney Disease Outcomes Quality Initiative (NKF-KDOQI) published in 2014. Specimen Plasma specimen Performing Organization Address City/[facility] Cent[facility] Phone Number [facility] DEPARTMENT OF PATHOLOGY AND [address] [place] [phone] DNA Ab screen (11/09/2018 3:25 PM CDT) DNA Ab screen Not Detected Not-Detected [facility] Specimen Blood Performing Organization Address [facility] Phone Number [facility] DEPARTMENT OF PATHOLOGY AND [address] [place] [phone] MARY titer (11/09/2018 3:25 PM CDT)Only the most recent of2 resultswithin the time period is included. Pathologist [facility] MARY titer 1:160 (A) Not-Detected [facility] MARY pattern Atypical speckled Not-Detected [facility] (A) HOSPITAL Specimen Blood Performing Organization Address [facility] Phone Number [facility] DEPARTMENT OF PATHOLOGY AND [address] [place] [phone] Protein, urine, random (11/09/2018 3:25 PM CDT) Pathologist [facility] Protein, urine random 9 mg/dL [facility] Specimen Urine Performing Organization Address City/[facility] Phone Number [facility] DEPARTMENT OF PATHOLOGY AND [address] [place] [address] Creatinine level, urine, random (11/09/2018 3:25 PM CDT) Creatinine, urine, 31 mg/dL [facility] HOSPITAL Specimen Urine Performing Organization Address [facility] Phone Number [facility] DEPARTMENT OF PATHOLOGY AND [address] [place] [address] Urinalysis, automated with microscopy (11/09/2018 3:25 PM CDT) Color, UA Straw [facility] Appearance, UA Clear [facility] Specific gravity, UA 1.006 1.001 - 1.035 [facility] pH, UA 6.0 5.0 - 8.5 [facility] Protein, UA Negative Negative [facility] Glucose, UA Negative Negative [facility] Ketones, UA Negative Negative [facility] Bilirubin, UA Negative Negative [facility] Blood, UA Negative Negative [facility] Nitrite, UA Negative Negative [facility] Urobilinogen, UA <2.0 <2.0 [facility] Leukocyte esterase, Negative Negative [facility] Epithelial cells, UA <1 /HPF [facility] WBC, UA <1 0 - 4 /HPF [facility] RBC, UA None seen 0 - 5 /HPF [facility] Bacteria, UA None seen None seen [facility] Yeast, UA None seen [facility] Yeast with None seen [facility] pseudohyphae, HOSPITAL Specimen Urine Performing Organization Address City/[facility] Phone Number [facility] DEPARTMENT OF PATHOLOGY AND [address] [place] [phone] Sedimentation rate (11/09/2018 3:25 PM CDT) Sedimentation rate 9 0 - 20 mm/hr [facility] Specimen Blood Performing Organization Address City/[facility] Phone Number [facility] DEPARTMENT OF PATHOLOGY AND [address] [place] [address] CBC with platelet and differential (11/09/2018 3:25 PM CDT) WBC 11.00 4.50 - 11.00 [facility] RBC 4.54 4.20 - 5.50 [facility] HGB 13.6 12.0 - 16.0 [facility] HCT 42.7 37.0 - 47.0 % [facility] MCV 94.1 82.0 - 100.0 [facility] MCH 30.0 27.0 - 34.0 pg [facility] MCHC 31.9 31.0 - 37.0 [facility] g/dL [facility] RDW - SD 46.5 37.0 - 55.0 [facility] MPV 9.4 8.8 - 13.2 fL [facility] Platelet count 294 150 - 400 k/uL [facility] Nucleated RBC 0.00 /100 WBC [facility] Neutrophils 56.3 39.0 - 69.0 % [facility] Lymphocytes 29.4 25.0 - 45.0 % [facility] Monocytes 9.4 0.0 - 10.0 % [facility] Eosinophils 3.1 0.0 - 5.0 % [facility] Basophils 1.5 (H) 0.0 - 1.0 % [facility] Immature granulocytes 0.3Comment: 0.0 - 1.0 % [facility] "Immature [facility] granulocytes" (promyelocytes , myelocytes, metamyelocytes ) Specimen Blood Performing Organization Address City/[facility] Centercode Phone Number [facility] DEPARTMENT OF PATHOLOGY AND [address] [place] [address] C3 complement component (11/09/2018 3:25 PM CDT) C3 complement 142 90 - 180 mg/dL [facility] Specimen Plasma specimen Performing Organization Address City/[facility] Phone Number [facility] DEPARTMENT OF PATHOLOGY AND [address] [place] [address] C4 complement component (11/09/2018 3:25 PM CDT) C4 complement 28 10 - 40 mg/dL [facility] Specimen Plasma specimen Performing Organization Address City/[facility] Centercode Phone Number [facility] DEPARTMENT OF PATHOLOGY AND [address] [place] [phone] C-reactive protein (11/09/2018 3:25 PM CDT) CRP <0.30 0.00 - 0.50 mg/dL [facility] Specimen Plasma specimen Performing Organization Address [facility] Centercode Phone Number [facility] DEPARTMENT OF PATHOLOGY AND [address] [place] [phone] MARY (11/09/2018 3:25 PM CDT)Only the most recent of2 resultswithin the time period is included. Pathologist [facility] MARY screen Positive (A) Negative [facility] Specimen Blood Performing Organization Address City/[facility] Centercode Phone Number [facility] DEPARTMENT OF PATHOLOGY AND [address] [place] [address] [address] Comprehensive metabolic panel (11/09/2018 3:25 PM CDT) [facility] Sodium 140 135 - 148 [facility] mEq/L [facility] Potassium 3.9 3.5 - 5.0 [facility] mEq/L [facility] Chloride 101 98 - 112 mEq/L [facility] CO2 26 24 - 31 mEq/L [facility] Anion gap 13@ANIO 7 - 15 mEq/L [facility] BUN 8 8 - 23 mg/dL [facility] Creatinine 0.65 0.50 - 0.90 [facility] mg/dL [facility] Glucose 86 65 - 99 mg/dL [facility] Calcium 9.3 8.8 - 10.2 [facility] mg/dL [facility] Protein 7.6 6.3 - 8.3 g/dL [facility] Comment: HOSPITAL 4.6-7.0 g/dL 1 week 4.4-7.6 g/dL 7 months-1year5.1-7.3 g/dL 1-2 years5.6-7.5 g/dL >3 years6.0-8.0 g/dL 18-150 6.3-8.3 g/dL Albumin 4.1 3.5 - 5.0 g/dL [facility] A/G ratio 1.2 0.7 - 3.8 [facility] Alkaline phosphatase 81 35 - 104 U/L [facility] AST 27 10 - 35 U/L [facility] ALT 18 5 - 50 U/L [facility] Total bilirubin <0.2 0.0 - 1.2 [facility] mg/dL HOSPITAL Specimen Plasma specimen Performing Organization Address City/[facility]/Zipcode Phone Number [facility] DEPARTMENT OF PATHOLOGY AND [address] [place] [address] [address] [address] Angiogram Pe Chest (08/09/2018 12:14 PM BILLET RECORDER) Specimen Narrative Performed At EXAMINATION: HM RADIANT CT ANGIOGRAM PE CHEST CLINICAL HISTORY: I27.21 [...] without evidence of a suspicious focal lesion. [facility]-[id number] Procedure Note Interface, Radiology Results Incoming - 08/09/2018 12:19 PM BILLET RECORDER EXAMINATION: CT ANGIOGRAM PE CHEST CLINICAL HISTORY: [...] without evidence of a suspicious focal lesion. [facility]-[id number] Performing Organization Address City/State/Zipcode Phone Number [facility] [address] [place] [address] POC creatinine (08/09/2018 11:20 AM BILLET RECORDER) POC creatinine 0.7 0.5 - 0.9 mg/dl [facility] Comment: HOSPITAL Meter ID: [id number] Chimney Builder: Terry Briones Specimen Blood Performing Organization Address City/[facility]/Zipcode Phone Number [facility] DEPARTMENT OF PATHOLOGY AND [address] [place] [address] GENOMIC MEDICINE [facility] [address] [place] [address] NM Lung Ventilation Perfusion (08/09/2018 10:44 AM BILLET RECORDER) Specimen Narrative Performed At PROCEDURE:NM LUNG VENTILATION [facility] INDICATION:Secondary pulmonary arterial hypertension. COMPARISON:Chest CT dated [...] are most suggestive of underlying airspace disease. [facility]-[id number] Procedure Note Interface, Radiology Results Incoming - 08/09/2018 11:25 AM BILLET RECORDER PROCEDURE: NM LUNG VENTILATION PERFUSION INDICATION: Secondary [...] are most suggestive of underlying airspace disease. [facility]-[id number] Performing Organization Address City/[facility]/Zipcode Phone Number [facility] [address] [place] [address] SS-B antibody (08/05/2018 1:28 PM BILLET RECORDER) Sjogren's SS-B <0.2 0.0 - 0.9 [facility] antibody [facility] SS-B antibody Negative [facility] inter Comment: JUDAISM SS-B/La antibody is seen in patients with Sjogren syndrome, but may also be HOSPITAL positive with systemic lupus erythematosus (SLE), and systemic sclerosis. Specimen Serum Performing Organization Address City/State/Zipcode Phone Number [facility] DEPARTMENT OF PATHOLOGY AND [address] [place] [address] SS-A antibody (08/05/2018 1:28 PM BILLET RECORDER) Sjogren's SS-A <0.2 0.0 - 0.9 [facility] antibody [facility] SS-A antibody Negative [facility] interp Comment: JUDAISM SS-A antibody is sensitive for Sjogren's syndrome, but may also be positive HOSPITAL with systemic lupus erythematosus (SLE), and systemic sclerosis. Specimen Serum Performing Organization Address City/[facility] Centercode Phone Number [facility] DEPARTMENT OF PATHOLOGY AND [address] [place] [phone] Valderrama antibody (08/05/2018 1:28 PM BILLET RECORDER) Valderrama antibody <0.2 0.0 - 0.9 [facility] Valderrama antibody Negative [facility] interp Comment: JUDAISM Anti-Valderrama antibodies occurs in 30-35% of systemic lupus erythematosus HOSPITAL (SLE) cases, but is very specific for SLE. It may also present in mixed connective-tissue disease (MCTD). Specimen Serum Performing Organization Address City/[facility]/Zipcode Phone Number [facility] DEPARTMENT OF PATHOLOGY AND [address] [place] [phone] Ribonucleic antibody (WORK CHECKER) (08/05/2018 1:28 PM BILLET RECORDER) Ribonucleic <0.2 0.0 - 0.9 [facility] antibody (WORK CHECKER) [facility] Ribonucleic Negative [facility] antibody (WORK CHECKER) Comment: [facility] Anti-ribonucleic protein (anti-WORK CHECKER) antibodies are typically found in HOSPITAL patients with mixed connective tissue disease, but can also be seen in patients with systemic lupus erythematosus (SLE) or systematic sclerosis. Specimen Serum Performing Organization Address City/[facility]/Zipcode Phone Number [facility] DEPARTMENT OF PATHOLOGY AND [address] [address] Elaine-1 antibody (08/05/2018 1:28 PM BILLET RECORDER) Pathologist [facility] Elaine-1 antibody <0.2 0.0 - 0.9 AI [facility] Elaine-1 antibody Negative [facility] Comment: JUDAISM Anti-Elaine-1 antibody is predominantly found in patients with polymyositis, HOSPITAL especially for those with interstitial pulmonary fibrosis. It can also be found in patients with dermatomyositis. Specimen Serum Performing Organization Address [facility] Centercode Phone Number [facility] DEPARTMENT OF PATHOLOGY AND [address] [place] [address] Anti-neutrophilic cytoplasmic Abs panel (08/05/2018 1:28 PM BILLET RECORDER) [facility] ANCA screen Negative Negative [facility] Specimen Blood Performing Organization Address [facility] Phone Number [facility] DEPARTMENT OF PATHOLOGY AND [address] [place] [address] Rheumatoid factor (08/05/2018 1:28 PM BILLET RECORDER) [facility] Rheumatoid factor <10 0 - 13 IU/mL [facility] Specimen Plasma specimen Performing Organization Address [facility] Phone Number [facility] DEPARTMENT OF PATHOLOGY AND [address] [place] [address] Thyroid stimulating hormone (08/05/2018 1:28 PM BILLET RECORDER)Only the most recent of2 resultswithin the time period is included. [facility] TSH 1.31 0.27 - 4.20 uIU/mL [facility] Specimen Plasma specimen Performing Organization Address [facility] Centercode Phone Number [facility] DEPARTMENT OF PATHOLOGY AND [address] [place] [address] Echocardiogram complete w contrast and 3D if needed (05/19/2018 1:00 PM BILLET RECORDER) Specimen Narrative Performed At [facility] Echocardiography Report [address] [place] [address] 9, [place] [address] Pat.Name:SEEMA ROMO Pat.ID:[id number] St.Date: 05/19/2018 Refer.MD:Kiana NUNEZ MD Exam Time: 12:15:00 PM Study Type:Routine Echo Height:57inWeight: 90lb BSA: 1.28 m2 DOBAge:1945,72Y Sex: FEMALEBP:113/63 HR:79 bpmSonogrphr: SHEMAR Aden, [facility] Pat. Stat.:OutpatientRoom:[facility] 16 Study Status:Revised Echo Event ID:[id number] Order ID:[id number] Reason for Study:Pulmonary Hypertension History / Clinical:COPD [...] of 5-10 mmHg. MEASUREMENTS: 2D Parasternal Long [place] LVOT 1.7 cmIVSd 0.6 cm Ao An1.9 [...] LVOT TVI23.8 cmLVOT CI3.3 l/m/m2 LVOT [id number] bpm LVOT SV 54.1 ml TAPSE TVI TAPS TVI 2.2 cmTAPS Flw Int 362 msec Signed 05/24/2018 3:22:37 PM Librado Angela M.D. Revised Procedure Note Interface, Radiology Results In - 05/24/2018 3:22 PM BILLET RECORDER Echocardiography Report [address] [place] [address] Pat.Name: SEEMA ROMO Pat.ID: [id number] .Date: 05/19/2018 Refer.MD: Kiana NUNEZ MD Exam Time: 12:15:00 PM Study Type:Routine Echo Height: 57in Weight: 90lb BSA: 1.28 m2 Age: 6 1945,72Y Sex: FEMALE BP: 113/63 HR: 79 bpm Sonogrphr: SHEMAR Aden, RCS Pat. Stat.:Outpatient Room: [facility] 16 Study Status:Revised Echo Event ID:[id number] Order ID: [id number] Reason for Study:Pulmonary Hypertension History / Clinical:COPD [...] of 5-10 mmHg. MEASUREMENTS: 2D Parasternal Long [place] LVOT 1.7 cm IVSd 0.6 cm Ao [...] Organization Address City/State/Zipcode Phone Number [facility] [address] [place] [address] CT Chest Wo Contrast (05/19/2018 11:40 AM BILLET RECORDER) Specimen Narrative Performed At [facility] CLINICAL HISTORY: J44.9 [...] spine and mild scoliotic curvature is present. [id number] Procedure Note Interface, Radiology Results Incoming - 05/19/2018 11:53 AM BILLET RECORDER EXAMINATION: CT CHEST WO CONTRAST CLINICAL HISTORY: [...] spine and mild scoliotic curvature is present. [id number] Performing Organization Address City/State/Zipcode Phone Number [facility] [address] [place] [address] Vitamin D 25 hydroxy level (04/12/2018 11:59 AM CDT) Pathologist [facility] Vitamin D, 69 30 - 100 [facility] [employer] 25-hydroxy Comment: ng/mL HIG[facility]UM Vitamin D Status 25-OH Vitamin D: Deficiency:<20 ng/mL Insufficiency: 20 - 29 ng/mL Optimal: > or=30 ng/mL For 25-OH Vitamin D testing on patients on D2-supplementation and patients for whom quantitation of D2 and D3 fractions is required, the QuestAssureD(TM) 25-OH VIT D, (D2,D3), LC/MS/MS is recommended: order code 16366 (patients >2yrs). For more information on this test, go to: http://education.SongFlame/faq/QEL603 (This link is being provided for informational/educational purposes only.) Specimen Blood Narrative Performed At FASTING:YES [facility] FASTING: YES Resulting Agency Comment Performing Organization Information: Site ID: [id number] [facility] Address: [address] [place] [id number] Director: Loan Peres Performing Organization Address [facility] Phone Number [facility] [place] [phone] T4, free (04/12/2018 11:59 AM CDT) Pathologist [facility] T4, free 0.9 0.8 - 1.8 ng/dL [facility] Specimen Blood Narrative Performed At FASTING:YES [facility] FASTING: YES Resulting Agency Comment Performing Organization Information: Site ID: [id number] [facility] Address: [address] [place] [phone] Director: Loan Peres Performing Organization Address City/[facility]/Zipcode Phone Number [facility] [address] [address] Parathyroid hormone (04/12/2018 11:59 AM CDT) PTH 57 14 - 64 pg/mL [facility] Comment: EVELYN Galindo II Interpretive GuideIntact PTH Calcium ------- Normal ParathyroidNormal Normal HypoparathyroidismLow or Low NormalLow Hyperparathyroidism PrimaryNormal or High High SecondaryHigh Normal or Low Tertiary High High Non-Parathyroid HypercalcemiaLow or Low NormalHigh Specimen Blood Narrative Performed At FASTING:YES [facility] FASTING: YES Resulting Agency Comment Performing Organization Information: Site ID: [id number] [facility] Address: [address] [place] [phone] Director: Dr. Faraz Castro Performing Organization Address City/State/Zipcode Phone Number TIANNA WYNN [facility] [address] [place] [address] Basic metabolic panel (04/12/2018 11:59 AM CDT) Glucose 85 65 - 99 [facility] Comment: mg/dL [facility] Fasting reference interval BUN, whole blood 9 7 - 25 mg/dL [facility] Creatinine 0.63 0.60 - 0.93 [facility] Comment: mg/dL [facility] For patients >49 years of age, the reference limit for Creatinine is approximately 13% higher for people identified as -[place]. EGFR Non-Afr. 88 > OR=60 [facility] [place] mL/min/1.73m [facility] 2 EGFR 102 > OR=60 [facility] [place] mL/min/1.73m [facility] 2 BUN/creatinine NOT APPLICABLE 6 - 22 [facility] ratio (calc) [facility] Sodium 140 135 - 146 [facility] mmol/L [facility] Potassium 3.8 3.5 - 5.3 [facility] mmol/L [facility] Chloride 104 98 - 110 [facility] mmol/L [facility] CO2 31 20 - 32 [facility] mmol/L [facility] Calcium 9.3 8.6 - 10.4 [facility] mg/dL [facility] Specimen Blood Narrative Performed At FASTING:YES [facility] FASTING: YES Resulting Agency Comment Performing Organization Information: Site ID: [id number] Name: [facility] Address: [address] [place] [address] Director: Loan Peres Performing Organization Address City/State/Zipcode Phone Number [facility] [address] [place], [place] [phone] Bone Density (04/12/2018 10:55 AM CDT) Specimen Narrative Performed At [facility] [address] [facility] [address] [place] [address] Bone Density Report Name: Seema Romo Sex: Female Age: 72 Ethnicity: White Height: 57.5 in Referring Provider: LUIS EVANS Date of : 1945 Weight: 89.0 lb Indication: Osteoporosis; history of glucocorticoids Accession number: [id number] Bone Density: Exam date 04/12/2018 Region BMD [...] cause or contribute to bone loss. The [place] Association of Clinical Endocrinologists (AACE) and National [...] AM. Performing Organization Address City/State/Zipcode Phone Number [facility] [address] [facility] 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
--- OUTSIDE RECORDS SUMMARY | 2019-03-19 20:06 | XMS REPORT ---
:1945 [facility] Address [address] [place] [address] Dr. Clark [address] [place] [address] Care Team Providers Name Role Phone JANEL [...] Comments SODIUM (BEAKER) (test 139 meq/L 136-145 hqfm=046) POTASSIUM (BEAKER) (test 3.5 meq/L 3.5-5.1 vwyf=767) CHLORIDE (BEAKER) (test 103 meq/L 98-107 jnmz=989) CO2 (BEAKER) (test yrgp=581) 28 meq/L 22-29 BLOOD UREA NITROGEN (BEAKER) 15 mg/dL 7-21 (test arfg=222) CREATININE (BEAKER) (test 0.73 mg/dL 0.57-1.25 rfmy=399) GLUCOSE RANDOM (BEAKER) 89 mg/dL 70-105 (test yjtf=867) CALCIUM (BEAKER) (test 9.7 mg/dL 8.4-10.2 qllx=053) EGFR (BEAKER) (test 78 mL/min/1.73 sq m ESTIMATED GFR IS NOT qckh=9220) ACCURATE CREATININE CLEARANCE IN PREDICTING GLOMERULAR FILTRATION RATE. ESTIMATED GFR IS NOT APPLICABLE FOR DIALYSIS PATIENTS. PROTHROMBIN TIME/[id number] 07:01:00 Test Item Value Reference Range Comments PROTIME (BEAKER) (test iibd=454) 12.9 seconds 11.7-14.7 INR (BEAKER) (test uase=392) 1.0 <=5.9 RECOMMENDED COUMADIN/WARFARIN INR THERAPY RANGESSTANDARD DOSE: 2.0 - 3.0 Includes: PROPHYLAXIS forvenous thrombosis, systemic embolization; TREATMENT for venous thrombosis and/or pulmonary embolus.HIGH RISK: Target INR is 2.5-3.5 for patients with mechanical heart valves.CBC W/PLT COUNT & AUTO [id number] 06:45:00 Test Item Value Reference Range Comments WHITE BLOOD CELL COUNT (BEAKER) (test svns=897) 12.2 K/ L 3.5-10.5 RED BLOOD CELL COUNT (BEAKER) (test ffwo=953) 4.61 M/ L 3.93-5.22 HEMOGLOBIN (BEAKER) (test zbrd=905) 14.2 GM/DL 11.2-15.7 HEMATOCRIT (BEAKER) (test jnit=875) 43.5 % 34.1-44.9 MEAN CORPUSCULAR VOLUME (BEAKER) (test xkdd=580) 94.4 fL 79.4-94.8 MEAN CORPUSCULAR HEMOGLOBIN (BEAKER) (test 30.8 pg 25.6-32.2 lytb=960) MEAN CORPUSCULAR HEMOGLOBIN CONC (BEAKER) (test 32.6 GM/DL 32.2-35.5 dfcn=452) RED CELL DISTRIBUTION WIDTH (BEAKER) (test 14.0 % 11.7-14.4 djwv=757) PLATELET COUNT (BEAKER) (test qbtr=804) 356 K/CU MM 150-450 MEAN PLATELET VOLUME (BEAKER) (test yfba=004) 8.9 fL 9.4-12.3 NUCLEATED RED BLOOD CELLS (BEAKER) (test 0 /100 WBC 0-0 hvsh=281) NEUTROPHILS RELATIVE PERCENT (BEAKER) (test 64 % duuu=006) LYMPHOCYTES RELATIVE PERCENT (BEAKER) (test 22 % pbqh=838) MONOCYTES RELATIVE PERCENT (BEAKER) (test 11 % svun=202) EOSINOPHILS RELATIVE PERCENT (BEAKER) (test 0 % jhtp=560) BASOPHILS RELATIVE PERCENT (BEAKER) (test 1 % zhgv=210) NEUTROPHILS ABSOLUTE COUNT (BEAKER) (test 7.83 K/ L 1.56-6.13 vfbx=476) LYMPHOCYTES ABSOLUTE COUNT (BEAKER) (test 2.73 K/ L 1.18-3.74 uxht=979) MONOCYTES ABSOLUTE COUNT (BEAKER) (test 1.38 K/ L 0.24-0.36 rref=961) EOSINOPHILS ABSOLUTE COUNT (BEAKER) (test 0.05 K/ L 0.04-0.36 xuja=731) BASOPHILS ABSOLUTE COUNT (BEAKER) (test 0.08 K/ L 0.01-0.08 iowr=327) IMMATURE GRANULOCYTES-RELATIVE PERCENT (BEAKER) 1 % 0-1 (test dnrl=0554)
--- OUTSIDE RECORDS SUMMARY | 2019-03-19 20:06 | XMS REPORT ---
:1945 Author Organization eClinicalWorks Care Team Providers Name Role Phone Ty Refugio Provider Role Unavailable Allergies, Adverse Reactions, Alerts Substance Reaction Event Type Bactrim DS Info Not Available Drug Allergy Problems Problem Type Condition Code Onset Dates Condition Status Assessment Depression with anxiety F41.8 Active Problem Depression with anxiety F41.8 Active Assessment Acute non-recurrent maxillary J01.00 Active sinusitis Problem Chronic obstructive pulmonary J44.9 Active disease, unspecified COPD type Problem Seasonal allergies J30.2 Active Problem 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 Problem Fatty liver K76.0 Active Problem Shingles B02.9 Active Problem 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 Problem Age-related osteoporosis without M81.0 Active current pathological fracture Medications Medication Code Code Instructions Start End Status Dosage System Date Date Prolia [facility] 00883304307 60 MG/ML Active as directed Subcutaneous Mucinex Maximum ND 46044292352 1200 MG Orally Active 1 tablet as Strength every 12 hrs needed [place] [address] MG Active 1 capsule Orally Once a day Azithromycin ND 37967291379 250 MG Orally Feb 10, Sept Active 2 tablets Once a day 2018 15, on the 2018 first day, then 1 tablet daily for 4 days Albuterol ND 56028016082 (2.5 MG/3ML) Active 3 ml as Sulfate 0.083% needed Inhalation Three times a day Nasonex ND 28030058961 50 MCG/ACT Active 2 sprays in Nasally Once a each day nostril Xanax ND 42591014789 0.5 MG Orally Active 1 tablet TID PRN severe anxiety Citalopram ND 75267525871 40 MG Orally Active 1 tablet Hydrobromide Once a day ProAir HFA [facility] 90113553660 108 (90 Base) Active INHALE TWO MCG/ACT PUFFS BY MOUTH EVERY 6 HOURS NEEDED Questran ND 88388993541 4 GM Orally Active 1 packet Twice a day mixed with water or non-carbona joanna drink Glucosamine ND 22908312638 500 MG Orally Active 1 capsule Three times a with a meal day Montelukast [facility] 04372754853 10 MG once a Active TAKE 1 Sodium day TABLET BY MOUTH ONCE A DAY IN THE EVENING Spiriva Respimat [facility] 58133300144 2.5 microgram Active 2 puffs Inhaled Once a day Revatio [facility] 61077112797 20 MG Orally Active 0.5 tablet Two times a day Acyclovir [facility] 21259480963 200 MG Orally Active 1 capsule Three times a day Vitamin D [facility] 61853242369 2000 UNIT Active 1 tablet Orally Once a day Symbicort [facility] 64235770035 160-4.5 MCG/ACT Active 2 puffs Inhalation Twice a day Claritin [facility] 94606651131 10 MG Orally Active 1 tablet Once a day Celexa [facility] 52013653230 40 MG Orally Active 1 tablet Once a day Results No Known Results Summary Purpose eClinicalWorks Submission
--- OUTSIDE RECORDS SUMMARY | 2019-03-19 20:06 | XMS REPORT | Clinical Summary ---
:1945 Author Organization [facility] Address [address] [place] [address] Care Team Providers Name Role Phone Refugio [...] 06/11/2018 Orders Only General Internal Medicine after 03/18/2018 Social History Tobacco Use Types Packs/Day Years [...] Taken Blood Pressure 108/53 06/11/2018 2:00 PM ULTRASOUND TECHNOLOGIST Pulse 91 06/11/2018 2:00 PM ULTRASOUND TECHNOLOGIST Temperature 36.9 C (98.5 F) 06/11/2018 5:43 AM ULTRASOUND TECHNOLOGIST Respiratory Rate 16 06/11/2018 2:00 PM ULTRASOUND TECHNOLOGIST Oxygen Saturation 91% 06/11/2018 10:10 AM ULTRASOUND TECHNOLOGIST Inhaled Oxygen Concentration - - Weight 38.8 kg (85 lb 8 oz) 06/11/2018 5:43 AM ULTRASOUND TECHNOLOGIST Height 146.1 cm (4' 9.5") 06/11/2018 5:43 AM ULTRASOUND TECHNOLOGIST Body Mass Index 18.18 06/11/2018 5:43 AM ULTRASOUND TECHNOLOGIST Plan of Treatment Not on file Procedures Procedure Name Priority Date/Time Associated Diagnosis Comments CARDIAC CATH REPORT - 06/18/2018 1:01 PM SCAN ULTRASOUND TECHNOLOGIST R & L CATH / CORONARY 06/11/2018 7:30 AM Heart failure, ANGIOS / BIOPSY ULTRASOUND TECHNOLOGIST unspecified HF chronicity, unspecified heart failure type (HCC) Case Notes POP6. Nitric Oxide challenge CBC W/PLT COUNT & AUTO STAT 06/11/2018 6:38 AM ULTRASOUND TECHNOLOGIST Results for this DIFFERENTIAL procedure are in the results section. PROTHROMBIN TIME/INR STAT 06/11/2018 6:38 AM ULTRASOUND TECHNOLOGIST BASIC METABOLIC PANEL (7) STAT 06/11/2018 6:38 AM ULTRASOUND TECHNOLOGIST CBC W/PLT COUNT & AUTO STAT 06/11/2018 6:38 AM ULTRASOUND TECHNOLOGIST Results for this DIFFERENTIAL procedure are in the results section. ECG 12-LEAD Routine 06/11/2018 6:34 AM ULTRASOUND TECHNOLOGIST Procedure Note - Interface, External Ris In - 06/11/2018 6:41 AM ULTRASOUND TECHNOLOGIST Ventricular Rate 62 BPM Atrial Rate 62 BPM P-R Interval 106 ms QRS Duration 84 ms Q-T Interval 424 ms QTC Calculation(Bazett) 430 ms P [place] 83 degrees R [place] -75 degrees T [place] 20 degrees Sinus rhythm with short TX with Premature atrial complexes with Aberrant conduction Low voltage QRS Left anterior fascicular block Possible Anterolateral infarct , age undetermined Abnormal ECG No previous ECGs available ECG 12-LEAD Routine 06/11/2018 6:34 AM ULTRASOUND TECHNOLOGIST after 03/18/2018 Results CARDIAC CATH REPORT - SCAN (06/18/2018 1:01 PM ULTRASOUND TECHNOLOGIST) Narrative Performed At CBC with platelet count + automated diff (06/11/2018 6:38 AM ULTRASOUND TECHNOLOGIST) WBC 12.2 (H) 3.5 - 10.5 K/L [facility] RBC 4.61 3.93 - 5.22 M/L [facility] Hemoglobin 14.2 11.2 - 15.7 GM/DL [facility] Hematocrit 43.5 34.1 - 44.9 % [facility] MCV 94.4 79.4 - 94.8 fL [facility] MCH 30.8 25.6 - 32.2 pg [facility] MCHC 32.6 32.2 - 35.5 GM/DL [facility] RDW 14.0 11.7 - 14.4 % [facility] Platelets 356 150 - 450 K/CU MM [facility] MPV 8.9 (L) 9.4 - 12.3 fL [facility] nRBC 0 0 - 0 /100 WBC [facility] % Neutros 64 % [facility] % Lymphs 22 % [facility] % Monos 11 % [facility] % Eos 0 % [facility] % Baso 1 % [facility] # Neutros 7.83 (H) 1.56 - 6.13 K/L [facility] # Lymphs 2.73 1.18 - 3.74 K/L [facility] # Monos 1.38 (H) 0.24 - 0.36 K/L [facility] # Eos 0.05 0.04 - 0.36 K/L [facility] # Baso 0.08 0.01 - 0.08 K/L [facility] Immature Granulocytes-Relative 1 0 - 1 % [facility] Specimen Blood Performing Organization Address City/State/Zipcode Phone Number [facility] [address] [place] [address] CENTER Prothrombin time/INR (06/11/2018 6:38 AM ULTRASOUND TECHNOLOGIST) Protime 12.9 11.7 - 14.7 seconds [facility] INR 1.0 <=5.9 [facility] Specimen Blood Narrative Performed At RECOMMENDED COUMADIN/WARFARIN INR THERAPY [facility] RANGES STANDARD DOSE: 2.0 - 3.0 Includes: PROPHYLAXIS for venous thrombosis, systemic embolization; TREATMENT for venous thrombosis and/or pulmonary embolus. HIGH RISK: Target INR is 2.5-3.5 for patients with mechanical heart valves. Performing Organization Address [facility] Phone Number [address] [address] [phone] [facility] Basic Metabolic Panel (06/11/2018 6:38 AM ULTRASOUND TECHNOLOGIST) Sodium 139 136 - 145 meq/L [facility] Potassium 3.5 3.5 - 5.1 meq/L [facility] Chloride 103 98 - 107 meq/L [facility] CO2 28 22 - 29 meq/L [facility] BUN 15 7 - 21 mg/dL [facility] Creatinine 0.73 0.57 - 1.25 mg/dL [facility] Glucose 89 70 - 105 mg/dL [facility] Calcium 9.7 8.4 - 10.2 mg/dL [facility] EGFR 78Comment: ESTIMATED GFR IS mL/min/1.73 sq m [facility] NOT ACCURATE CREATININE [facility] CENTER CLEARANCE IN PREDICTING GLOMERULAR FILTRATION RATE. ESTIMATED GFR IS NOT APPLICABLE FOR DIALYSIS PATIENTS. Specimen Blood Performing Organization Address [facility] Phone Number [address] [address] [phone] [facility] ECG 12 lead (06/11/2018 6:34 AM ULTRASOUND TECHNOLOGIST) Specimen Narrative Performed At Ventricular Rate 62 BPM [facility] MUSE Atrial Rate 62 BPM P-R Interval 106 ms QRS Duration 84 ms Q-T Interval 424 ms QTC Calculation(Bazett) 430 ms P [place] 83 degrees R [place] -75 degrees T [place] 20 degrees Sinus rhythm with short TX with Premature atrial complexes with Aberrant conduction Low voltage QRS Left anterior fascicular block Possible Anterolateral infarct , age undetermined Abnormal ECG No previous ECGs available Confirmed by MD Kelley Roberto ([id number]) on 06/11/2018 2:15:28 PM Procedure Note Interface, External Ris In - 06/11/2018 2:15 PM ULTRASOUND TECHNOLOGIST Ventricular Rate 62 BPM Atrial Rate 62 BPM P-R Interval 106 ms QRS Duration 84 ms Q-T Interval 424 ms QTC Calculation(Bazett) 430 ms P [place] 83 degrees R [place] -75 degrees T [place] 20 degrees Sinus rhythm with short TX with Premature atrial complexes with Aberrant conduction Low voltage QRS Left anterior fascicular block Possible Anterolateral infarct , age undetermined Abnormal ECG No previous ECGs available Confirmed by MD Kelley Roberto ([id number]) on 06/11/2018 2:15:28 PM Performing Organization Address City/State/Zipcode Phone Number [facility] after 03/18/2018 Insurance Payer Benefit Plan / Group Subscriber ID Type Phone Address MEDICARE MEDICARE A B xxxxxxxxxxx Medicare MCR SUPPLEMENT/INDIVIDUAL AARP/[facility] xxxxxxxxxxx [employer]
[2019-03-19] MEDS ORDERED: ALBUTEROL 2.5 MG/3 ML NEB SOL ONE (20:15)
[2019-03-19] MEDS ORDERED: IPRATROPIUM BROM 0.5MG/2.5ML ONE (20:15)
[2019-03-19] MEDS ORDERED: METHYLPREDNISOLONE 125 MG INJ ONE (20:41)
[2019-03-19 21:01] LABS: Absolute Lymphocytes (CBC) 1.1 K/uL (0.7-4.9); Basophils % 0.1 % (0-1.3); Hematocrit 42.1 % (36.0-45.0); Lymphocytes % 4.1 % (15.3-44.8); MPV 8.2 fL (7.6-11.3); RBC Red Blood Cell Count 4.56 M/uL (3.86-4.86)
[2019-03-19 21:02] LABS: Protime INR 0.97
[2019-03-19] MEDS ORDERED: NA CHLORIDE 0.9% 500 ML ONE (21:47)
[2019-03-19] MEDS ORDERED: AZITHROMYCIN 500 MG INJ IVPB ONE (21:53)
[2019-03-19] MEDS ORDERED: CEFTRIAXONE/SWI 1gm 1 GM/10 ML SYR ONE ×2 (21:53→22:16)
[2019-03-19] MEDS ORDERED: NA CHLORIDE 0.9% 250 ML ONE (21:54)
[2019-03-19 22:12] LABS: Blood Morphology Comment NOT SEEN (NOT SEEN); Platelet Estimate ADEQ
[2019-03-19 22:15] LABS: Albumin 3.5 g/dL (3.4-5.0); Bilirubin Direct 0.1 mg/dL (0-0.2); Bilirubin Total 0.4 mg/dL (0.2-1.0); Magnesium 1.9 mg/dL (1.8-2.4); Potassium 4.5 mmol/L (3.5-5.1); Protein, Total 6.6 g/dL (6.4-8.2); Troponin (Emerg Dept Use Only) 0.02 ng/mL (0.0-0.045)
--- NOTE | 2019-03-19 23:45 | EDPHYS ---
Physician Documentation [facility] Name: Seema Romo Age: 73 yrs Sex: Female : 1945 Arrival Date: 03/19/2019 Time: 20:07 Bed 20 Private MD: ED Physician Frank Mayorga HPI: 03/19 20:28 This 73 yrs old Female presents to ER via Ambulatory with complaints of wa Breathing Difficulty. 20:28 The patient has shortness of breath at rest. Onset: The symptoms/episode began/occurred wa 1 week(s) ago. Duration: The symptoms are continuous, and are steadily getting worse. The patient's shortness of breath is aggravated by exertion. Associated signs and symptoms: Pertinent positives: chills, Pertinent negatives: chest pain, fever. Severity of symptoms: At their worst the symptoms were severe in the emergency department the symptoms are worse markedly. The patient has experienced similar episodes in the past, multiple times. The patient has been recently seen by a physician: the patient's primary care provider, on a z-smith. given a steroid shot. h/o pulm HTN. on home O2 at 5L. states SOB worsening x 1 week. . Historical: - Allergies: 20:55 Bactrim; jd3 20:55 Sulfa (Sulfonamide Antibiotics); jd3 - Home Meds: 20:55 Vitamin D Oral 2000 unit daily [Active]; acyclovir 200 mg Oral cap daily [Active]; jd3 albuterol sulfate 2.5 mg /3 mL (0.083 %) Inhl nebu 3 mL 4 times per day [Active]; citalopram 40 mg tab 1 tab once daily [Active]; Glucosamine 500 mg Oral tab daily [Active]; Letairis 5 mg Oral tab 1 tab once daily [Active]; montelukast 10 mg Oral tab 1 tab once daily [Active]; Mucinex 1,200 mg Oral Ta12 daily [Active]; [place]-3 350 mg-235 mg- 90 mg-597 mg Oral cpDR daily [Active]; ProAir HFA 90 mcg/actuation inhalation HFAA 2 puffs every 4 hours [Active]; Prolia 60 mg/mL subcutaneous syrg 1 mL every 6 mo [Active]; singular 10mg 1 tab daily, Flovent 220mcg inh 1 puff BID, Proair 90mcg inh 2 puff QID prn, Celexa 40mg daily, Spiriva 2.5mcg daily , Acyclovir 200mg 1 tab BID, [Active]; Spiriva Respimat 2.5 mcg/actuation inhalation mist 2 puffs once daily [Active]; Symbicort 160-4.5 mcg/actuation inhalation HFAA 2 puffs 2 times per day [Active]; turmeric root extract Oral daily [Active]; Xanax 0.5 mg Oral tab as needed [Active]; - PMHx: 20:55 COPD; Anxiety; degenerative joint disease; Depression; fatty liver; Mycobacterium Avium jd3 Complex; neuropathy; Osteoporosis; shingles; - PSHx: 20:55 left kidney cyst; Left upper lobectomy; Tonsillectomy; ; Tubal ligation; jd3 - Immunization history:: Adult Immunizations up to date. - Social history:: Smoking status: Patient/guardian denies using tobacco, but has a distant history of tobacco abuse. - Family history:: not pertinent. - Ebola Screening: : Patient negative for fever greater than or equal to 101.5 degrees Fahrenheit, and additional compatible Ebola Virus Disease symptoms. - Hospitalizations: : No recent hospitalization is reported. ROS: 20:31 Constitutional: Negative for fever, chills, and weight loss, Eyes: Negative for injury, wa pain, redness, and discharge, ENT: Negative for injury, pain, and discharge, Neck: Negative for injury, pain, and swelling, Cardiovascular: Negative for chest pain, palpitations, and edema, Abdomen/GI: Negative for abdominal pain, nausea, vomiting, diarrhea, and constipation, Back: Negative for injury and pain, : Negative for injury, bleeding, discharge, and swelling, MS/Extremity: Negative for injury and deformity, Skin: Negative for injury, rash, and discoloration, Neuro: Negative for headache, weakness, numbness, tingling, and seizure, Psych: Negative for depression, anxiety, suicide ideation, homicidal ideation, and hallucinations. 20:31 Respiratory: Positive for shortness of breath, on exertion. 20:31 All other systems are negative. Exam: 20:31 Head/Face: Normocephalic, atraumatic. Eyes: Pupils equal round and reactive to light, wa extra-ocular motions intact. Lids and lashes normal. Conjunctiva and sclera are non-icteric and not injected. Cornea within normal limits. Periorbital areas with no swelling, redness, or edema. ENT: Nares patent. No nasal discharge, no septal abnormalities noted. Tympanic membranes are normal and external auditory canals are clear. Oropharynx with no redness, swelling, or masses, exudates, or evidence of obstruction, uvula midline. Mucous membranes moist. Neck: Trachea midline, no thyromegaly or masses palpated, and no cervical lymphadenopathy. Supple, full range of motion without nuchal rigidity, or vertebral point tenderness. No Meningismus. Chest/axilla: Normal chest wall appearance and motion. Nontender with no deformity. No lesions are appreciated. Cardiovascular: Regular rate and rhythm with a normal S1 and S2. No gallops, murmurs, or rubs. Normal PMI, no JVD. No pulse deficits. Abdomen/GI: Soft, non-tender, with normal bowel sounds. No distension or tympany. No guarding or rebound. No evidence of tenderness throughout. Back: No spinal tenderness. No costovertebral tenderness. Full range of motion. Skin: Warm, dry with normal turgor. Normal color with no rashes, no lesions, and no evidence of cellulitis. MS/ Extremity: Pulses equal, no cyanosis. Neurovascular intact. Full, normal range of motion. Neuro: Awake and alert, GCS 15, oriented to person, place, time, and situation. Cranial nerves II-XII grossly intact. Motor strength 5/5 in all extremities. Sensory grossly intact. Cerebellar exam normal. Normal gait. Psych: Awake, alert, with orientation to person, place and time. Behavior, mood, and affect are within normal limits. 20:31 Constitutional: The patient appears alert, in obvious distress, moderately distressed, noted tripoding. 20:31 Respiratory: severe repiratory distress is noted, Respirations: tachypnea, Breath sounds: wheezing: is scattered, is heard diffusely, Respiratory rate: tachypneic Vital Signs: 20:11 BP 144 / 76; Pulse 156; Resp 60; Pulse Ox 62% on 5 lpm NC; la1 20:45 BP 99 / 46; Pulse 124; Resp 20 S; Temp 99.0(O); Pulse Ox 100% on BiPAP; Weight 38.1 kg jd3 (R); Height 4 ft. 9 in. (144.78 cm) (R); Pain 0/10; 21:41 BP 96 / 46; Pulse 119; Resp 22 S; Pulse Ox 96% on 4 lpm NC; Pain 0/10; jd3 22:24 BP 97 / 42; Pulse 114; Resp 23 S; Pulse Ox 93% on 4 lpm NC; jd3 23:23 BP 97 / 47; Pulse 108; Resp 23 S; Pulse Ox 93% on 4 lpm NC; jd3 03/20 00:19 BP 100 / 45; Pulse 110; Resp 21 S; Pulse Ox 93% on 4 lpm NC; jd3 01:20 BP 91 / 41; Pulse 101; Resp 20 S; Pulse Ox 93% on 4 lpm NC; Pain 0/10; jd3 02:03 BP 100 / 48; Pulse 91; Resp 20 S; Pulse Ox 96% on 4 lpm NC; Pain 0/10; jd3 03/19 20:45 Body Mass Index 18.18 (38.10 kg, 144.78 cm) jd3 MDM: 03/19 20:10 Patient medically screened. tn 20:32 Differential diagnosis: Anxiety Reaction asthma, Bronchitis CHF exacerbation, Chronic wa Obstructive Pulmonary Disease Myocardial Infarction pneumonia, Pneumothorax pulmonary edema, reactive airway disease, Sepsis Unstable Angina. 23:38 Data reviewed: vital signs, nurses notes, lab test result(s), EKG, radiologic studies. tn Test interpretation: by ED physician or midlevel provider: EKG: interp by ak: HR 127. sinus. tachycardia. diffuse ST-T changes. non-specific. 23:39 Test interpretation: by ED physician or midlevel provider: CXR: bilateral interstitial wa infiltrate noted. labs noted for hyperglycemia. leukocytosis with bandemia. . 23:40 Response to treatment: the patient's symptoms have markedly improved after treatment. tn ED course: pt able to get off BIPAP. Now on NC with Sats above 93?. 23:42 Physician consultation: Tam Harry DO. Admission orders: after a detailed discussion tn of the patient's condition and case, the admit orders are written by ak. 03/20 02:32 Special discussion: attempted admit to this [facility] under Dr. Harry. Advised pt's wa house mover helper at [facility] and to transfer. pt accepted at [facility] will transfer. 02:35 Test interpretation: by ED physician or midlevel provider: CT chest: severe emphesema. tn new patchy infiltrates in the LL lobe and lingula with trace L pleural effusion. 03/19 20:12 Order name: Blood Culture Adult (2) tn 03/19 20:12 Order name: BMP; Complete Time: 23:16 tn 03/19 20:12 Order name: CBC with Diff; Complete Time: 23:16 tn 03/19 20:12 Order name: Ckmb; Complete Time: 23:17 tn 03/19 20:12 Order name: CPK; Complete Time: 23:17 tn 03/19 20:12 Order name: Hepatic Function; Complete Time: 23:23 tn 03/19 20:12 Order name: Lipase; Complete Time: 23:17 tn 03/19 20:12 Order name: Magnesium; Complete Time: 23:17 tn 03/19 20:12 Order name: NT PRO-BNP; Complete Time: 23:16 tn 03/19 20:12 Order name: PT-INR; Complete Time: 21:08 tn 03/19 20:12 Order name: Troponin (emerg Dept Use Only); Complete Time: 23:17 tn 03/19 20:13 Order name: Urine Microscopic Only tn 03/19 21:07 Order name: Manual Differential; Complete Time: 23:16 EDMS 03/19 23:24 Order name: Lactate tn 03/19 20:12 Order name: XRAY CXR (1 view) tn 03/19 20:12 Order name: EKG; Complete Time: 20:14 tn 03/19 20:12 Order name: Cardiac monitoring; Complete Time: 20:45 tn 03/19 20:12 Order name: EKG - Nurse/Tech; Complete Time: 20:42 tn 03/19 20:12 Order name: IV Saline Lock; Complete Time: 20:44 tn 03/19 20:12 Order name: Labs collected and sent; Complete Time: 20:44 tn 03/19 20:12 Order name: BIPAP tn 03/19 23:24 Order name: Procalcitonin tn 03/19 23:24 Order name: CT Chest Wo Con 03/20 00:09 Order name: Urine Dipstick--Ancillary (enter results) ar5 03/19 20:12 Order name: O2 Per Protocol; Complete Time: 20:44 tn 03/19 20:12 Order name: O2 Sat Monitoring; Complete Time: 20:44 tn 03/19 20:13 Order name: Urine Dipstick-Ancillary (obtain specimen); Complete Time: 00:10 tn Administered Medications: 03/19 20:16 Drug: Albuterol - atroVENT (3:1) (2.5 mg - 0.5 mg) 3 ml Route: Nebulizer; d3 21:15 Follow up: Response: No adverse reaction jd3 20:45 Drug: SOLU-Medrol 125 mg Route: IVP; Site: right forearm; jd3 21:45 Follow up: Response: No adverse reaction jd3 21:48 Drug: NS 0.9% 500 ml Route: IV; Rate: bolus; Site: right forearm; d3 03/20 00:11 Follow up: Response: No adverse reaction; IV Status: Completed infusion; IV Intake: jd3 500ml 03/19 21:50 Drug: Rocephin - (cefTRIAXone) 2 grams Route: IVPB; Infused Over: 30 mins; Site: right jd3 forearm; 03/20 00:11 Follow up: Response: No adverse reaction; IV Status: Completed infusion d3 03/19 22:23 Drug: Zithromax 500 mg Route: IVPB; Infused Over: 1 hrs; Site: right forearm; d3 03/20 00:12 Follow up: Response: No adverse reaction; IV Status: Completed infusion; IV Intake: jd3 250ml 00:18 Drug: Tylenol 1000 mg Route: PO; jd3 01:15 Follow up: Response: No adverse reaction [facility] Disposition: 02:35 Critical Care:. wa Disposition: 03/20/19 02:[address] [facility]. Diagnosis are Respiratory distress, bilateral pneumonia. - Reason for transfer: Higher level of care. - Accepting physician is Dr. Sorto - at [facility]. - Condition is Stable. - Problem is new. - Symptoms have improved. Critical care time excluding procedures: 02:35 Critical care time: Bedside Care: 20 minutes, Consultation: 10 minutes, Family wa Intervention: 10 minutes. Total time: 40 minutes Signatures: Dispatcher [employer] EDDonato Sinha RN RN la1 Frank Mayorga MD MD wa Davies, Jonathon, RN RN jd3 Corrections: (The following items were deleted from the chart) 02:03/19 23:44 Hospitalization Ordered by Tam Harry DO for Inpatient Admission. tn Preliminary diagnosis is shortness of breath; respiratory distress; bilateral interstitial pneumonia. Bed requested for Telemetry/MedSurg (Inpatient). Status is Inpatient Admission. Condition is Stable. Problem is an acute exacerbation. Symptoms have improved. UTI on Admission? No. 03/20 02:29 02:29 03/19/2019 23:44 Hospitalization Ordered by Tam Harry DO for Inpatient tn Admission. Preliminary diagnosis is shortness of breath; respiratory distress; bilateral interstitial pneumonia. Bed requested for Telemetry/MedSurg (Inpatient). Status is Inpatient Admission. Condition is Stable. Problem is an acute exacerbation. Symptoms have improved. UTI on Admission? No. 02:58 02:31 03/20/2019 02:[address] [facility]. Diagnosis is jd3 Respiratory distress; bilateral pneumonia. Reason for transfer: Higher level of care. Accepting physician is Dr. Sorto - at [facility]. Condition is Stable. Problem is new. Symptoms have improved. tyra
--- NOTE | 2019-03-19 23:45 | ER ---
Nurse's Notes [facility] Name: Seema Romo Age: 73 yrs Sex: Female : 1945 Arrival Date: 03/19/2019 Time: 20:07 Bed 20 Private MD: Diagnosis: Respiratory distress;bilateral pneumonia Presentation: 03/19 20:10 Presenting complaint: Patient states: Feeling SOB with cough for 2 weeks, took z pack, la1 not getting better. Pt tripoding at registration desk, unable to speak full setences. Transition of care: patient was not received from another setting of care. Onset of symptoms was March 19, 2019. Risk Assessment: Do you want to hurt yourself or someone else? Patient reports no desire to harm self or others. Care prior to arrival: None. 20:10 Method Of Arrival: Ambulatory la1 20:10 Acuity: VADIM 1 la1 20:10 Initial Sepsis Screen: Does the patient meet any 2 criteria? RR > 20 per min. HR > 90 jd3 bpm. Yes Does the patient have a suspected source of infection? Yes: Other: cough If YES to both, name of provider notified: Frank Mayorga MD Triage Assessment: 20:20 Respiratory: Onset: The symptoms/episode began/occurred gradually, the patient has jd3 severe shortness of breath. Historical: - Allergies: 20:55 Bactrim; jd3 20:55 Sulfa (Sulfonamide Antibiotics); jd3 - Home Meds: 20:55 Vitamin D Oral 2000 unit daily [Active]; acyclovir 200 mg Oral cap daily [Active]; jd3 albuterol sulfate 2.5 mg /3 mL (0.083 %) Inhl nebu 3 mL 4 times per day [Active]; citalopram 40 mg tab 1 tab once daily [Active]; Glucosamine 500 mg Oral tab daily [Active]; Letairis 5 mg Oral tab 1 tab once daily [Active]; montelukast 10 mg Oral tab 1 tab once daily [Active]; Mucinex 1,200 mg Oral Ta12 daily [Active]; [place]-3 350 mg-235 mg- 90 mg-597 mg Oral cpDR daily [Active]; ProAir HFA 90 mcg/actuation inhalation HFAA 2 puffs every 4 hours [Active]; Prolia 60 mg/mL subcutaneous syrg 1 mL every 6 mo [Active]; singular 10mg 1 tab daily, Flovent 220mcg inh 1 puff BID, Proair 90mcg inh 2 puff QID prn, Celexa 40mg daily, Spiriva 2.5mcg daily , Acyclovir 200mg 1 tab BID, [Active]; Spiriva Respimat 2.5 mcg/actuation inhalation mist 2 puffs once daily [Active]; Symbicort 160-4.5 mcg/actuation inhalation HFAA 2 puffs 2 times per day [Active]; turmeric root extract Oral daily [Active]; Xanax 0.5 mg Oral tab as needed [Active]; - PMHx: 20:55 COPD; Anxiety; degenerative joint disease; Depression; fatty liver; Mycobacterium Avium jd3 Complex; neuropathy; Osteoporosis; shingles; - PSHx: 20:55 left kidney cyst; Left upper lobectomy; Tonsillectomy; ; Tubal ligation; jd3 - Immunization history:: Adult Immunizations up to date. - Social history:: Smoking status: Patient/guardian denies using tobacco, but has a distant history of tobacco abuse. - Family history:: not pertinent. - Ebola Screening: : Patient negative for fever greater than or equal to 101.5 degrees Fahrenheit, and additional compatible Ebola Virus Disease symptoms. - Hospitalizations: : No recent hospitalization is reported. Screenin:50 Abuse screen: Denies threats or abuse. Nutritional screening: No deficits noted. jd3 Tuberculosis screening: No symptoms or risk factors identified. Fall Risk Ambulatory Aid- None/Bed Rest/Nurse Assist (0 pts). Gait- Normal/Bed Rest/Wheelchair (0 pts) Mental Status- Oriented to own ability (0 pts). Total Wang Fall Scale indicates No Risk (0-24 pts). Assessment: 20:35 General: Appears in no apparent distress. uncomfortable, Behavior is calm, cooperative, jd3 appropriate for age. Pain: Denies pain. Neuro: Level of Consciousness is awake, alert, obeys commands, Oriented to person, place, time, situation. Cardiovascular: Denies chest pain, Heart tones S1 S2 present Capillary refill < 3 seconds Patient's skin is warm and dry. Rhythm is sinus tachycardia. Respiratory: Reports shortness of breath at rest cough that is non-productive, labored breathing Airway is patent Respiratory effort is labored, shallow, Respiratory pattern is symmetrical, hyperventilation tachypnea Breath sounds with wheezes bilaterally. GI: No signs and/or symptoms were reported involving the gastrointestinal system. : No signs and/or symptoms were reported regarding the genitourinary system. EENT: No signs and/or symptoms were reported regarding the EENT system. Derm: Skin is intact, Skin is dry, Skin is normal, Skin temperature is warm. Musculoskeletal: Circulation, motion, and sensation intact. Range of motion: intact in all extremities. 21:40 Reassessment: Patient and/or family updated on plan of care and expected duration. Pain jd3 level reassessed. Patient is alert, oriented x 3, equal unlabored respirations, skin warm/dry/pink. pt requesting to take off BiPap, respiratory therapy notified. pt switched to a nasal canula by RT. Patient states feeling better. 22:24 Reassessment: Patient and/or family updated on plan of care and expected duration. Pain jd3 level reassessed. Patient is alert, oriented x 3, equal unlabored respirations, skin warm/dry/pink. Patient states feeling better. 23:23 Reassessment: Patient appears in no apparent distress at this time. Patient and/or jd3 family updated on plan of care and expected duration. Pain level reassessed. Patient is alert, oriented x 3, equal unlabored respirations, skin warm/dry/pink. awaiting disposition. 03/20 00:18 Reassessment: Patient appears in no apparent distress at this time. Patient and/or jd3 family updated on plan of care and expected duration. Pain level reassessed. Patient is alert, oriented x 3, equal unlabored respirations, skin warm/dry/pink. pt reporting headache, provider notified. 01:21 Reassessment: Patient appears in no apparent distress at this time. Patient and/or jd3 family updated on plan of care and expected duration. Pain level reassessed. Patient is alert, oriented x 3, equal unlabored respirations, skin warm/dry/pink. provider at bedside discussing plan of care. 02:17 Reassessment: Patient appears in no apparent distress at this time. Patient and/or jd3 family updated on plan of care and expected duration. Pain level reassessed. Patient is alert, oriented x 3, equal unlabored respirations, skin warm/dry/pink. report given to Wes GOODRICH. 02:57 Reassessment: Patient appears in no apparent distress at this time. Patient and/or jd3 family updated on plan of care and expected duration. Pain level reassessed. Patient is alert, oriented x 3, equal unlabored respirations, skin warm/dry/pink. report given to [facility]. Vital Signs: 03/19 20:11 BP 144 / 76; Pulse 156; Resp 60; Pulse Ox 62% on 5 lpm NC; la1 20:45 BP 99 / 46; Pulse 124; Resp 20 S; Temp 99.0(O); Pulse Ox 100% on BiPAP; Weight 38.1 kg jd3 (R); Height 4 ft. 9 in. (144.78 cm) (R); Pain 0/10; 21:41 BP 96 / 46; Pulse 119; Resp 22 S; Pulse Ox 96% on 4 lpm NC; Pain 0/10; jd3 22:24 BP 97 / 42; Pulse 114; Resp 23 S; Pulse Ox 93% on 4 lpm NC; jd3 23:23 BP 97 / 47; Pulse 108; Resp 23 S; Pulse Ox 93% on 4 lpm NC; jd3 03/20 00:19 BP 100 / 45; Pulse 110; Resp 21 S; Pulse Ox 93% on 4 lpm NC; jd3 01:20 BP 91 / 41; Pulse 101; Resp 20 S; Pulse Ox 93% on 4 lpm NC; Pain 0/10; jd3 02:03 BP 100 / 48; Pulse 91; Resp 20 S; Pulse Ox 96% on 4 lpm NC; Pain 0/10; jd3 03/19 20:45 Body Mass Index 18.18 (38.10 kg, 144.78 cm) jd3 ED Course: 03/19 20:07 Patient arrived in ED. ds1 20:10 Frank Mayorga MD is Attending Physician. wa 20:11 Triage completed. la1 20:12 Arm band placed on left wrist. la1 20:15 Kiet Collins, JOLEEN is Primary Nurse. jd3 20:35 Inserted saline lock: 22 gauge in right forearm, using aseptic technique. Blood jd3 collected. 20:51 Patient has correct armband on for positive identification. Bed in low position. Call jd3 light in reach. Side rails up X 1. Adult w/ patient. twister doffer on. Pulse ox on. NIBP on. 20:56 XRAY CXR (1 view) In Process Unspecified. EDMS 23:43 Tam Harry DO is Hospitalizing Provider. 03/20 00:18 CT Chest Wo Con In Process Unspecified. EDMS 02:49 No provider procedures requiring assistance completed. Patient transferred, IV remains jd3 in place. Administered Medications: 03/19 20:16 Drug: Albuterol - atroVENT (3:1) (2.5 mg - 0.5 mg) 3 ml Route: Nebulizer; jd3 21:15 Follow up: Response: No adverse reaction jd3 20:45 Drug: SOLU-Medrol 125 mg Route: IVP; Site: right forearm; jd3 21:45 Follow up: Response: No adverse reaction jd3 21:48 Drug: NS 0.9% 500 ml Route: IV; Rate: bolus; Site: right forearm; jd3 03/20 00:11 Follow up: Response: No adverse reaction; IV Status: Completed infusion; IV Intake: jd3 500ml 03/19 21:50 Drug: Rocephin - (cefTRIAXone) 2 grams Route: IVPB; Infused Over: 30 mins; Site: right jd3 forearm; 03/20 00:11 Follow up: Response: No adverse reaction; IV Status: Completed infusion jd3 03/19 22:23 Drug: Zithromax 500 mg Route: IVPB; Infused Over: 1 hrs; Site: right forearm; jd3 03/20 00:12 Follow up: Response: No adverse reaction; IV Status: Completed infusion; IV Intake: jd3 250ml 00:18 Drug: Tylenol 1000 mg Route: PO; jd3 01:15 Follow up: Response: No adverse reaction jd3 Intake: 00:11 IV: 500ml; Total: 500ml. jd3 00:12 IV: 250ml; Total: 750ml. jd3 Outcome: 03/19 23:44 Decision to Hospitalize by Provider. 03/20 02:31 ER care complete, transfer ordered by . wa 02:49 Condition: stable jd3 02:49 Instructed on the need for transfer, Demonstrated understanding of instructions. 02:57 Transferred by ground EMS to [facility], Transfer form completed. jd3 X-rays sent w/ patient. 02:58 Patient left the ED. jd3 Signatures: Dispatcher [employer] EDMS Flakita Zhang ds1 Donato Polanco RN RN la1 Frank Mayorga MD MD wa Davies, Jonathon, RN RN jd3 Corrections: (The following items were deleted from the chart) 03/19 20:47 20:45 Resp 22bpm; Spontaneous; Pulse Ox 100% BiPAP; Temp 99.0F Oral; Pain 0/10; jd3 jd3 21:50 21:41 BP 93 / 46; Pulse 119bpm; Resp 22bpm; Spontaneous; Pulse Ox 96% 3 lpm Nasal jd3 Cannula; Pain 0/10; jd3 22:25 21:41 BP 96 / 46; Pulse 119bpm; Resp 22bpm; Spontaneous; Pulse Ox 96% 3 lpm Nasal jd3 Cannula; Pain 0/10; jd3 22:30 20:45 BP 99 / 46; Pulse 124bpm; Resp 20bpm; Spontaneous; Pulse Ox 100% BiPAP; Temp jd3 99.0F Oral; Pain 0/10; jd3
[2019-03-20] MEDS ORDERED: ACETAMINOPHEN 500 MG TAB ONE (00:17)
[2019-03-20 00:40] LABS: Urine Bacteria <20 /HPF (<20); Urine Culture Reflex Order NOT NEEDED; Urine RBC <5 /HPF (NONE SEEN)
[2019-03-20 00:41] LABS: Urine Specific Gravity 1.025 (1.005-1.030)
[2019-03-20 00:42] LABS: Urine Blood NEGATIVE (NEG); Urine Glucose NEGATIVE (NEG); Urine Protein 1+ (NEG)
[2019-03-20 03:47] VITALS: TEMP 99
[2019-03-20 03:55] VITALS: BP 100/48; O2SAT 96
--- NOTE | 2019-03-20 08:53 | RAD REPORT ---
EXAM DESCRIPTION: RAD - Chest Single View - 03/19/2019 9:02 pm CLINICAL HISTORY: Shortness of breath COMPARISON: January 17 TECHNIQUE: AP portable chest image was obtained 2052 hour . FINDINGS: Fibrotic lung changes are present. Lung markings are increased slightly in the left base. No dense consolidation seen. There is some minimal patchy alveolar component at the left base. Trache a remains midline. Left costophrenic angle blunting present. Heart and vasculature are normal. No pne umothorax seen. Subacute or old posterior right sixth rib fracture seen. No pathologic component evid ent. No acute aortic findings suspected. IMPRESSION: Suspected left base pneumonia superimposed on chronic fibrosis.
--- NOTE | 2019-03-20 13:19 | EKG ---
Test Date: 2019-03-19 Test Time: 20:37:21 Inspector Subassemblies: CORA MEASUREMENT RESULTS: Intervals: Rate: 127 FL: QRSD: 76 QT: 416 QTc: 604 [place]: P: FL: QRS: 266 T: 82 INTERPRETIVE STATEMENTS: sinus tach Right superior axis deviation Anterior infarct, age undetermined Abnormal ECG Compared to ECG 01/17/2019 09:30:11 Right superior axis now present Sinus rhythm no longer present Atrial premature complex(es) no longer present Short FL interval no longer present Aberrant conduction of supraventricular beat(s) no longer present Left anterior fascicular block no longer present Incomplete right bundle-branch block no longer present Myocardial infarct finding still present Electronically Signed On 03-20-19 13:18:22 CDT by Patrick Bhatt
--- NOTE | 2019-03-21 11:04 | RAD REPORT ---
EXAM DESCRIPTION: CT - Thorax Wo Con - 03/20/2019 3:23 am CLINICAL HISTORY: 73 years Female SOB TECHNIQUE: Contiguous axial images obtained through the chest without IV contrast administration. Coronal and sagittal reformatted images provided. This CT exam was performed according to our departmental dose-optimization program, which includes on e or more of the following dose reduction techniques: automated exposure control, adjustment of the m A and/or kV according to patient size, and/or use of iterative reconstruction technique. COMPARISON: Comparison is made to the prior examination dated 01/17/2019. FINDINGS: Again seen is severe diffuse centrilobular and paraseptal emphysema. Patchy scarring bilat erally, particularly in the lung apices. New focal infiltrates in the left lower lobe and lingula. Tr bradley left pleural effusion. No pneumothorax. Stable cardiac size with a trace pericardial effusion. No thoracic aortic aneurysm or acute mediastin al hemorrhage. Shotty diffuse mediastinal lymph nodes likely reactive. No visualized acute upper abdominal or osseous abnormality. IMPRESSION: Severe emphysema again seen. New patchy infiltrates in the left lower lobe and lingula w ith a trace left pleural effusion, likely infectious. Electronically signed by: Sara Merino MD 03/20/2019 1:03 AM CDT Due to temporary technical issues with the PACS/Fluency reporting system, reports are being signed by the in house radiologist as a courtesy to ensure prompt reporting. The interpreting radiologist is f ully responsible for the content of the report.
== END 2019-03-20 02:58 | disposition short-term general hospital (02) ==
LOC: ER 20:02
DX: J18.9 Pneumonia, unspecified organism (principal); J44.9 Chronic obstructive pulmonary disease, unspecified; F32.9 Major depressive disorder, single episode, unspecified; F41.9 Anxiety disorder, unspecified; Z88.1 Allergy status to other antibiotic agents; Z88.2 Allergy status to sulfonamides
CPT/HCPCS: 96365; 93005; 87040 ×2; 85025; 80048; 36415; 83735; 82550; 85610; 80076; 83605; 84484; 82553; 83690; 84145; 83880; 71250; 71045; 94640; 94660; 96375; 99291; 99292; J0456; J0696 ×2; J2930; 81003; 81015; 96368

== ENCOUNTER 2019-11-07 15:05 | Inpatient (IN) | payer OTHER, MEDICARE ==
--- OUTSIDE RECORDS SUMMARY | 2019-11-07 15:09 | XMS REPORT | Clinical Summary ---
:1945 Author Organization [facility] Address [address] [place] [address] Care Team Providers Name Role Phone Crow Primary Care Provider Unavailable Allergies Active Allergy Reactions Severity Noted Date Comments Sulfa (Sulfonamide Antibiotics) Swelling 6 "break out" Medications Medication Sig Dispensed Refills Start End Date Status Date ALPRAZolam Take 0.5 mg by 0 Acti ve (XANAX) 0.5 MG mouth 3 (three) 6 tablet times a day as needed for anxiety or sleep. SYMBICORT 80-4.5 Inhale 2 puffs 2 0 Active mcg/actuation (two) times a 6 inhaler day. citalopram Take 40 mg by 0 Activ e (CeleXA) 40 MG mouth daily. 6 tablet montelukast Take 10 mg by 0 Acti ve (SINGULAIR) 10 mg mouth nightly. 6 tablet SPIRIVA RESPIMAT Take 2 puffs by 0 Active 2.5 mcg/actuation mouth daily. 6 mist albuterol (PROAIR Inhale 2 puffs 0 Active HFA,PROVENTIL every 4 (four) HFA,VENTOLIN HFA) hours as needed 90 mcg/actuation for wheezing or inhaler shortness of breath. cholecalciferol, Take 2,000 Units 0 Active vitamin D3, by mouth daily. (VITAMIN D3) 2,000 unit capsule capsule acyclovir Take 200 mg by 0 Activ e (ZOVIRAX) 200 MG mouth 2 (two) capsule times a day. omega-3/dha/epa/f Take 1 capsule 0 Active nathaniel oil (OMEGA-3 by mouth daily. ORAL) TURMERIC ORAL Take 500 mg by 0 A ctive mouth daily. guaiFENesin Take 1 tablet by 0 A ctive (MUCINEX) 1,200 mouth every 12 mg tablet (twelve) hours. extended release 12hr glucosamine Take 1 tablet by 0 A ctive sulfate mouth daily. (GLUCOSAMINE ORAL) denosumab Inject 60 mg 0 Active (PROLIA) 60 mg/mL under the skin. syringe syringe Every 6 months (next dose due in November 2019) albuterol Take 2.5 mg by 0 Activ e (ACCUNEB) 2.5 mg nebulization 2 /3 mL (0.083 %) (two) times a nebulizer day. solution ambrisentan Take 10 mg by 0 Acti ve (LETAIRIS) 10 MG mouth daily. tablet acetaminophen Take 1 tablet by 0 Active (TYLENOL ORAL) mouth every 6 (six) hours as needed (for mild pain or fever). Lactobacillus Take 1 tablet by 0 07/12/19 Discontinued acidoph-L.bulgar mouth 3 (three) 20 (Med List (FLORANEX) 1 times a day. Dilcia nup) million cell tablet diclofenac Apply topically 100 g 3 07/12/19 Dis continued (VOLTAREN) 1 % 2 (two) times a 8 20 (Med List gel day. Cleanup) acyclovir TAKE 1 CAPSULE 180 capsule 0 12/29/19 Dis continued (ZOVIRAX) 200 MG BY MOUTH 2 9 19 (R eorder) capsuleIndication TIMES A DAY s: Herpes infection acyclovir TAKE 1 CAPSULE 180 capsule 0 07/12/19 Dis continued (ZOVIRAX) 200 MG BY MOUTH 2 9 20 (M ed List capsuleIndication TIMES A DAY Cleanup) s: Herpes infection Hospital, Clinic, or Ordered Dose Route Frequency Start Date End D ate Status Other Facility Administered Medication denosumab (PROLIA) 60 mg subQ every 6 months 05/11/201807/12 Discontinued syringe 60 0 mgIndications: Osteoporosis, postmenopausal Active Problems Problem Noted Date Acute on chronic respiratory failure with hypoxemia Pulmonary hypertension 07/13/2019 Acute bronchitis due to Rhinovirus 07/13/2019 Acute respiratory distress 07/12/2019 Shoulder arthritis 04/12/2018 Vitamin D deficiency disease 11/05/2016 H/O Clostridium difficile infection September - Jan 2016 0 03/05/2016 Osteoporosis s/p RECLAST 12/2014, 04/2016, 04/20170 12/2015 Overview: No reactions during infusion but diarrhe a Leg length difference, acquired 03/05/2016 Scoliosis 03/05/2016 Renal cyst s/p decortication (L) complicated post op 200403/05/2016 CAT (mycobacterium avium-intracellulare) infection in 1998 s/p therapy. 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 Overview: 2007 Left tiffanie thoracotomy, upper lobect suzy, lysis of pleural adhesions and mediastinal lymph node dissection Abnormal CT scan, chest 03/05/2016 Overview: Caseating granuloma associated with elastosis and calcification, benign lung changes of fibrosis, mucous plugging, bronchitis, emphysema and crystals consistent with silicate Benign lymph node with anthracotic pigme nt and crystals consistent with silicate and LN with sinus histiocytosis and anthracotic pigment Leucocytoclastic vasculitis 03/05/2016 Herpes infection on chronic valacyclovir 03/05/2016 Encounters Date Type Specialty Care Team Description 08/23/2019 Surgery Procedural Lopez Luz CV RIGHT HE ART CATH Cardiology MD Radha [[id number] (CPT )] 08/23/2019 Hospital Encounter Procedural Lopez Luz Prima ry pulmonary Cardiology MD Radha hypertension (HCC) 07/12/2019 - Hospital Encounter Nephrology Jordan Craig Acute res piratory distress (Primary Dx); 07/15/2019 MD Frankie Tachycardia; Gordon Feng Severe persis tent reactive airway disease with acute exacerbation; MD Cristhian Acute on chroni c respiratory failure with hypoxemia (HCC); Pulmonary hyper tension (HCC); Acute bronchiti s due to Rhinovirus; Leukocytosis, u nspecified type 07/12/2019 Transcribe Orders Radiology Seamus Nunez Cough ( Primary Dx) MD Jerardo 04/19/2019 Hospital Encounter Radiology Laurel Dykes Age-rel atelaura MEADOWS osteoporosis without current pathological fracture 04/19/2019 Hospital Encounter Radiology System, Provider Age-r kp Grubbs InMD osteoporosis Laurel Dykes, without currmojgan nt pathological fracture 04/13/2019 Transcribe Orders Access Laurel Dykes Age-rela ted MD osteoporosis without current pathological fracture (Prima ry Dx) 03/20/2019 Intake Access 12/28/2018 Refill Rheumatology Sonja Leslie MD Herpes infe ction on chronic valacyclovir 11/09/2018 Lab Lab Laurel Dykes, Senile osteop orosis (Primary Dx); Need for prophy lactic chemotherapy; Raynaud's disea se without gangrene; False positive serological test for syphilis after 11/06/2018 Immunizations Name Administration Dates Next Due FLUZONE [...] Sign Reading Time Taken Comments Blood Pressure 95/46 08/23/2019 12:31 PM FLIGHT INSPECTOR Pulse 90 08/23/2019 12:31 PM FLIGHT INSPECTOR Temperature 36.5 C (97.7 F) 08/23/2019 11:39 AM FLIGHT INSPECTOR Respiratory Rate 26 08/23/2019 12:31 PM FLIGHT INSPECTOR Oxygen Saturation 98% 08/23/2019 12:31 PM FLIGHT INSPECTOR Inhaled Oxygen Concentration - - Weight 36.9 kg (81 lb 7 oz) 08/23/2019 7:36 AM FLIGHT INSPECTOR Height 144.8 cm (4' 9") 08/23/2019 7:36 AM FLIGHT INSPECTOR Body Mass Index 17.62 08/23/2019 7:36 AM FLIGHT INSPECTOR Plan of Treatment Health Maintenance Due Date Last Done Comments BREAST CANCER SCREENING 12/23/1993 COLONOSCOPY SCREENING 12/23/1993 SHINGLES VACCINES (#1) 12/23/1993 65+ PNEUMOCOCCAL VACCINE (2 of 2 - PPSV23) 12/23/200806/29 INFLUENZA VACCINE 01/28/2020 05/11/2019, 03/18/2017 Procedures Procedure Name Priority Date/Time Associated Diagnosis Comme nts CV RIGHT HEART CATH Routine 08/23/2019 11:16 Primary pulmonary Results for this AM FLIGHT INSPECTOR hypertension (HCC) procedure are in the results section. HC COMPLETE BLD COUNT STAT 08/23/2019 8:10 Re sults for this W/AUTO DIFF AM FLIGHT INSPECTOR procedure are i n the results section. POC PANEL Routine 08/23/2019 8:09 Results for this AM FLIGHT INSPECTOR procedure are i n the results section. ESTIMATED GFR Routine 08/23/2019 8:09 Results fo r this AM FLIGHT INSPECTOR procedure are i n the results section. ESTIMATED GFR Routine 07/15/2019 5:05 Results fo r this AM FLIGHT INSPECTOR procedure are i n the results section. PHOSPHORUS LEVEL Routine 07/15/2019 5:05 Results for this AM FLIGHT INSPECTOR procedure are i n the results section. MAGNESIUM LEVEL Routine 07/15/2019 5:05 Results for this AM FLIGHT INSPECTOR procedure are i n the results section. BASIC METABOLIC PANEL Routine 07/15/2019 5:05 Re sults for this AM FLIGHT INSPECTOR procedure are i n the results section. HC COMPLETE BLD COUNT Routine 07/15/2019 5:05 Re sults for this W/AUTO DIFF AM FLIGHT INSPECTOR procedure are i n the results section. CT CHEST WO CONTRAST Routine 07/14/2019 3:27 Res ults for this PM FLIGHT INSPECTOR procedure are i n the results section. CT SOFT TISSUE NECK WO Routine 07/14/2019 3:26 R esults for this CONTRAST PM FLIGHT INSPECTOR procedure are i n the results section. PARTIAL THROMBOPLASTIN Routine 07/14/2019 7:00 R esults for this TIME (PTT) AM FLIGHT INSPECTOR procedure are i n the results section. PARTIAL THROMBOPLASTIN STAT 07/14/2019 6:47 R esults for this TIME (PTT) AM FLIGHT INSPECTOR procedure are i n the results section. PROTHROMBIN TIME WITH STAT 07/14/2019 6:47 Re sults for this INR AM FLIGHT INSPECTOR procedure are i n the results section. ESTIMATED GFR Routine 07/14/2019 6:47 Results fo r this AM FLIGHT INSPECTOR procedure are i n the results section. BASIC METABOLIC PANEL Routine 07/14/2019 6:47 Re sults for this AM FLIGHT INSPECTOR procedure are i n the results section. HC COMPLETE BLD COUNT Routine 07/14/2019 6:47 Re sults for this W/AUTO DIFF AM FLIGHT INSPECTOR procedure are i n the results section. GRAM STAIN Routine 07/13/2019 4:30 Results for this PM FLIGHT INSPECTOR procedure are i n the results section. SPUTUM CULTURE Routine 07/13/2019 4:30 Results f or this PM FLIGHT INSPECTOR procedure are i n the results section. POC GLUCOSE Routine 07/13/2019 12:33 Results for this PM FLIGHT INSPECTOR procedure are i n the results section. TTE COMPLETE, WO STAT 07/13/2019 8:40 Results for this CONTRAST, W DOPPLER AM FLIGHT INSPECTOR procedur e are in ([id number]) the results section. POC GLUCOSE Routine 07/13/2019 7:48 Results for this AM FLIGHT INSPECTOR procedure are i n the results section. ESTIMATED GFR STAT 07/13/2019 5:30 Results fo r this AM FLIGHT INSPECTOR procedure are i n the results section. THYROID STIMULATING Routine 07/13/2019 5:30 Resu lts for this HORMONE AM FLIGHT INSPECTOR procedure are i n the results section. LACTIC ACID LEVEL STAT 07/13/2019 5:30 Result s for this AM FLIGHT INSPECTOR procedure are i n the results section. B NATRIURETIC PEPTIDE STAT 07/13/2019 5:30 Re sults for this AM FLIGHT INSPECTOR procedure are i n the results section. COMPREHENSIVE STAT 07/13/2019 5:30 Results fo r this METABOLIC PANEL AM FLIGHT INSPECTOR procedure ar e in the results section. HC COMPLETE BLD COUNT STAT 07/13/2019 5:30 Re sults for this W/AUTO DIFF AM FLIGHT INSPECTOR procedure are i n the results section. POC GLUCOSE Routine 07/13/2019 4:49 Results for this AM FLIGHT INSPECTOR procedure are i n the results section. POC GLUCOSE Routine 07/13/2019 1:47 Results for this AM FLIGHT INSPECTOR procedure are i n the results section. TROPONIN Timed 07/12/2019 10:08 Results for this PM FLIGHT INSPECTOR procedure are i n the results section. ARTERIAL BLOOD GAS STAT 07/12/2019 9:12 Resul ts for this PM FLIGHT INSPECTOR procedure are i n the results section. URINE CULTURE STAT 07/12/2019 6:15 Results fo r this PM FLIGHT INSPECTOR procedure are i n the results section. LACTIC ACID LEVEL Timed 07/12/2019 6:08 Result s for this PM FLIGHT INSPECTOR procedure are i n the results section. TROPONIN Timed 07/12/2019 6:08 Results for this PM FLIGHT INSPECTOR procedure are i n the results section. URINALYSIS SCREEN AND STAT 07/12/2019 6:08 Re sults for this MICROSCOPY, WITH PM FLIGHT INSPECTOR procedure a re in REFLEX TO CULTURE the result s section. RESPIRATORY PATHOGEN Routine 07/12/2019 4:56 Res ults for this PANEL PM FLIGHT INSPECTOR procedure are i n the results section. XR CHEST 1 VW PORTABLE STAT 07/12/2019 4:15 R esults for this PM FLIGHT INSPECTOR procedure are i n the results section. BLOOD CULTURE, AEROBIC Routine 07/12/2019 3:31 R esults for this & ANAEROBIC PM FLIGHT INSPECTOR procedure are i n the results section. ARTERIAL BLOOD GAS STAT 07/12/2019 3:30 Resul ts for this PM FLIGHT INSPECTOR procedure are i n the results section. LACTIC ACID LEVEL STAT 07/12/2019 3:30 Result s for this PM FLIGHT INSPECTOR procedure are i n the results section. ECG ED PRELIMINARY Routine 07/12/2019 3:12 Resul ts for this INTERPRETATION PM FLIGHT INSPECTOR procedure are in the results section. ESTIMATED GFR STAT 07/12/2019 2:55 Results fo r this PM FLIGHT INSPECTOR procedure are i n the results section. B NATRIURETIC PEPTIDE STAT 07/12/2019 2:55 Re sults for this PM FLIGHT INSPECTOR procedure are i n the results section. TROPONIN STAT 07/12/2019 2:55 Results for this PM FLIGHT INSPECTOR procedure are i n the results section. COMPREHENSIVE STAT 07/12/2019 2:55 Results fo r this METABOLIC PANEL PM FLIGHT INSPECTOR procedure ar e in the results section. HC COMPLETE BLD COUNT STAT 07/12/2019 2:55 Re sults for this W/AUTO DIFF PM FLIGHT INSPECTOR procedure are i n the results section. ECG 12-LEAD STAT 07/12/2019 2:47 Results for this PM FLIGHT INSPECTOR procedure are i n the results section. BONE DENSITY Routine 04/19/2019 1:21 Age-related Results for this PERIPHERAL PM CDT osteoporosis without procedu re are in current pathological the res ults fracture section. BONE DENSITY Routine 04/19/2019 1:20 Age-related Results for this PM CDT osteoporosis without procedu re are in current pathological the res ults fracture section. MARY TITER Routine 11/09/2018 3:25 Results for this PM CDT procedure are i n the results section. ESTIMATED GFR Routine 11/09/2018 3:25 Results fo r this PM CDT procedure are i n the results section. HC COMPLETE BLD COUNT Routine 11/09/2018 3:25 Senile os teoporosis Results for this W/AUTO DIFF PM CDT Need for procedure are i n prophylactic the results chemotherapy section. Raynaud's disease without gangrene False positive serological test for syphilis C4 COMPLEMENT Routine 11/09/2018 3:25 Senile osteopor osis Results for this COMPONENT PM CDT Need for procedure are i n prophylactic the results chemotherapy section. Raynaud's disease without gangrene False positive serological test for syphilis COMPREHENSIVE Routine 11/09/2018 3:25 Senile osteopor osis Results for this METABOLIC PANEL PM CDT Need for procedure ar e in prophylactic the results chemotherapy section. Raynaud's disease without gangrene False positive serological test for syphilis PROTEIN, URINE, RANDOM Routine 11/09/2018 3:25 Senile o steoporosis Results for this PM CDT Need for procedure are i n prophylactic the results chemotherapy section. Raynaud's disease without gangrene False positive serological test for syphilis CREATININE LEVEL, Routine 11/09/2018 3:25 Senile osteop orosis Results for this URINE, RANDOM PM CDT Need for procedure are in prophylactic the results chemotherapy section. Raynaud's disease without gangrene False positive serological test for syphilis SEDIMENTATION RATE Routine 11/09/2018 3:25 Senile osteo porosis Results for this PM CDT Need for procedure are i n prophylactic the results chemotherapy section. Raynaud's disease without gangrene False positive serological test for syphilis MARY Routine 11/09/2018 3:25 Senile osteopor osis Results for this PM CDT Need for procedure are i n prophylactic the results chemotherapy section. Raynaud's disease without gangrene False positive serological test for syphilis SCL-70 ANTIBODY Routine 11/09/2018 3:25 Senile osteopor osis Results for this PM CDT Need for procedure are i n prophylactic the results chemotherapy section. Raynaud's disease without gangrene False positive serological test for syphilis C3 COMPLEMENT Routine 11/09/2018 3:25 Senile osteopor osis Results for this COMPONENT PM CDT Need for procedure are i n prophylactic the results chemotherapy section. Raynaud's disease without gangrene False positive serological test for syphilis DNA AB SCREEN Routine 11/09/2018 3:25 Senile osteopor osis Results for this PM CDT Need for procedure are i n prophylactic the results chemotherapy section. Raynaud's disease without gangrene False positive serological test for syphilis C-REACTIVE PROTEIN Routine 11/09/2018 3:25 Senile osteo porosis Results for this PM CDT Need for procedure are i n prophylactic the results chemotherapy section. Raynaud's disease without gangrene False positive serological test for syphilis URINALYSIS, AUTOMATED Routine 11/09/2018 3:25 Senile os teoporosis Results for this WITH MICROSCOPY PM CDT Need for procedure ar e in prophylactic the results chemotherapy section. Raynaud's disease without gangrene False positive serological test for syphilis after 11/06/2018 Results industrial laborer procedure (08/23/2019 11:16 AM FLIGHT INSPECTOR) Specimen Narrative Performed At This result has an attachment that is no t available. INTERVENTIONAL CARDIOLOGY PROCEDURE NOTE [facility] [ Lopez Luz MD | Kari Carmona MD | Cullne guzman MD ] PATIENT:Semea Romo, MR#:[id number], :[birth year] DATE OF SERVICE:08/23/2019 Pre-Procedure Diagnosis:Pulmonary HTN Post-Procedure Diagnosis:moderate Pulm HTN Procedure Performed: - Right heart catheterization (RHC) - Ultrasound access:RIJ - Monitoring under moderate [id number] minutes Wire Drawing Die Maker:Sukh Anesthesia/Sedation:Moderate Sedation (IV Versed and IV Fentanyl) Specimens: None Estimated Blood Loss:1 mL Iodinated Contrast:none mL Blood Administered:None Grafts or Implants:None Complications:None Hemodynamic / oximetric Findings: Right atrium:2mm Hg (mean) Right ventricle:56/4 RVEDP 4 Pulmonary artery:56/[id number] Hg Wedge:4mm Hg Pulmonary artery saturation:72% Systemic artery saturation:96% Cardiac output / index (Estimated Caitlyn):3.08/2.5 1 PVR 9.74 PERDUE Plan / Recommendations: Severe PVR ~ 10 PERDUE Will discuss with Dr. Herrera. Thank you for the opportunity romero of assistance. Pl ease call if questions arise. [facility] Clinical and Interventional Cardiology Office: ; Answering Service: Pager: [phone] Performing Organization Address City/State/Zipcode Phone Number [facility] [address] [place] [address], CBC with platelet and differential (08/23/2019 8:10 AM FLIGHT INSPECTOR)Only the most recent of6 resultswithin the time period is included. WBC 7.49 4.50 - 11.00 [facility] RBC 3.94 (L) 4.20 - 5.50 [facility] HGB 11.9 (L) 12.0 - 16.0 [facility] g/dL HOSPITAL HCT 37.4 37.0 - 47.0 % [facility] MCV 94.9 82.0 - 100.0 [facility] MCH 30.2 27.0 - 34.0 pg [facility] MCHC 31.8 31.0 - 37.0 [facility] g/dL HOSPITAL RDW - SD 49.2 37.0 - 55.0 fL [facility] MPV 9.8 8.8 - 13.2 fL [facility] Platelet count 233 150 - 400 k/uL [facility] Nucleated RBC 0.00 /100 WBC [facility] Neutrophils 50.9 39.0 - 69.0 % [facility] Lymphocytes 32.2 25.0 - 45.0 % [facility] Monocytes 11.7 (H) 0.0 - 10.0 % [facility] Eosinophils 3.2 0.0 - 5.0 % [facility] Basophils 1.7 (H) 0.0 - 1.0 % [facility] Immature granulocytes 0.3Comment: 0.0 - 1.0 % [facility] "[facility] HOSPITAL granulocytes" (promyelocytes , myelocytes, metamyelocytes ) Specimen Blood Performing Organization Address City/[facility]/Zipcode Phone Number [facility] DEPARTMENT OF PATHOLOGY AND [address] [place] [address] [phone] [address] Estimated GFR (08/23/2019 8:09 AM FLIGHT INSPECTOR)Only the most recent of6 resultswithin the time period is included. Estimated GFR 89 mL/min/1.73 [facility] Comment: m2 HOSPITAL Catergory Units Interpretation G1 >=90 Normal or high G2 60-89 Mildly decreased G3a 45-59 Mildly to moderately decreas ed G3b 30-44 Moderately to severely decre ased G4 15-29 Severely decreased G5 <15 Kidney failure The eGFR was calculated using the Chronic Kidney Disea se Epidemiology Collaboration (CKD-EPI) equation. Interpretation is based on recommendations of the National Kidney Foundation-Kidney Disease Outcomes Ez lity Initiative (NKF-KDOQI) published in 2014. Specimen Blood Performing Organization Address City/State/Zipcode Phone Number [facility] DEPARTMENT OF PATHOLOGY AND [address] [place] [address] [phone] [address] POC panel (08/23/2019 8:09 AM FLIGHT INSPECTOR) POC sodium 141 135 - 148 [facility] mmol/L [facility] POC potassium 4.2 3.5 - 5.0 [facility] mmol/L [facility] POC chloride 102 99 - 109 [facility] mmol/L [facility] POC CO2 31 24 - 31 mmol/L [facility] POC glucose 91 65 - 99 mg/dL [facility] POC BUN 9 8 - 24 mg/dL [facility] POC creatinine 0.6 0.5 - 0.9 [facility] mg/dl HOSPITAL POC hematocrit 39 37 - 47 % [facility] POC anion gap 13 8 - 20 mmol/L [facility] Comment: HOSPITAL Hand Driller Name: Octavio Hurtado Device ID: [id number] Specimen Performing Organization Address City/[facility] Centercode Phone Number [facility] DEPARTMENT OF PATHOLOGY AND [address] [place] [phone] Phosphorus level (07/15/2019 5:05 AM FLIGHT INSPECTOR) Pathologist Sig nature Phosphorus 3.4 2.4 - 4.5 mg/dL [facility] Specimen Plasma specimen Performing Organization Address [facility] Centercone Phone Number [facility] DEPARTMENT OF PATHOLOGY AND [address] [place] [phone] Magnesium level (07/15/2019 5:05 AM FLIGHT INSPECTOR) Pathologist Sig nature Magnesium 2.1 1.6 - 2.4 mg/dL [facility] Specimen Plasma specimen Performing Organization Address [facility] Centercode Phone Number [facility] DEPARTMENT OF PATHOLOGY AND [address] [place] [phone] Basic metabolic panel (07/15/2019 5:05 AM FLIGHT INSPECTOR)Only the most recent of2 results within the time period is included. Pathologist Sig nature Sodium 142 135 - 148 mEq/L [facility] Potassium 4.7 3.5 - 5.0 mEq/L [facility] Chloride 107 98 - 112 mEq/L [facility] CO2 28 24 - 31 mEq/L [facility] Anion gap 7@ANIO 7 - 15 mEq/L [facility] BUN 10 8 - 23 mg/dL [facility] Creatinine 0.70 0.50 - 0.90 mg/dL [facility] Glucose 91 65 - 99 mg/dL [facility] Calcium 8.8 8.8 - 10.2 mg/dL [facility] Specimen Plasma specimen Performing Organization Address City/State/Zipcode Phone Number [facility] DEPARTMENT OF PATHOLOGY AND [address] [place], [place] [address] GENOMIC MEDICINE [facility] [address] [place] [address] CT Chest Wo Contrast (07/14/2019 3:27 PM FLIGHT INSPECTOR) Specimen Narrative Performed At EXAMINATION: CT CHEST WO CONTRAST RADIANT CLINICAL HISTORY: Acute resp illness > 40 years old, Shortness of breath, Rhino Enterovirus pulmonary hypertension a nterior neck nodule TECHNIQUE: Multiple axial images of the chest were obtained witho ut intravenous contrast. The lack of intravenous contrast reduces the sensitivity of detecting solid organ disease and evaluating vasculatu re. Sagittal and coronal computerized reformatted images were also obtained. Radiation dose reduction technique was utilized. COMPARISON: 05/19/2018 IMPRESSION: 1.No mediastinal or hilar masses have de veloped. 2.There are no pleural effusions. 3.Severe emphysematous changes are present throughout both lungs. 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 Agai n noted are changes related to left upper lobectomy. No no mass, i nfiltrate, or consolidation is seen. 4.No endobronchial lesions are seen. 5.Limited scans through the upper abdome n do not demonstrate any masses. [facility]-[id number] Procedure Note Interface, Radiology Results Incoming - 07/14/2019 3:53 PM FLIGHT INSPECTOR EXAMINATION: CT CHEST WO CONTRAST CLINICAL HISTORY: Acute resp illness > 40 years old, Shortness of breath, Rhino Enterovirus pulmonary hypertension anterior neck nodule TECHNIQUE: Multiple axial images of the chest were obtained without intravenous contrast. The lack of intravenous contrast reduces the sensitivity of detecting solid organ disease and evaluating vasculature. Sagittal and coronal computerized reformatted images were also obtained. Radiation dose reduction technique was utilized. COMPARISON: 05/19/2018 IMPRESSION: 1.No mediastinal or hilar masses have de veloped. 2.There are no pleural effusions. 3.Severe emphysematous changes are prese nt throughout both lungs. 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 No no mass, infiltrate, or consolidation is seen. 4.No endobronchial lesions are seen. 5.Limited scans through the upper abdome n do not demonstrate any masses. [facility]-[id number] Performing Organization Address City/State/Zipcode Phone Number [facility] [address] [place] [address] CT Soft Tissue Neck Wo Contrast (07/14/2019 3:26 PM FLIGHT INSPECTOR) Specimen Narrative Performed At EXAMINATION: CT SOFT TISSUE NECK WO CO NTRAST HM [facility] CLINICAL HISTORY: Palpable nodule or thyroid enlarge ment, Submantle submandibular nodule non-tender mobi le TECHNIQUE: Routine nonenhanced CT study of the neck was performed with images obtained from the skull base to the thoracic inlet. Im ages were reviewed in soft tissue and bone detail. CT imaging was performed with iterative reconstruction technique and/or automated exposure control to reduce rad iation dose. COMPARISON: CT neck 10/22/2004 FINDINGS: There is a superficial skin marker overlying the anter ior neck just left of midline. Subjacent to this marker is a round hyperd ense 10 x 7 x 7 mm circumscribed lesion anterior to and abutting the hyoi d bone but off midline to the left by approximately 1 cm. No pathologic cervical lymph nodes b y imaging criteria. No other mass lesion in the neck. Major salivary glands are slightly atrop hic without focal lesion. Left lobe 4 mm hypodense thyroid nodule. Paranasal sinuses and mastoid air cells are clear. Ross ateral intraocular lens implants. Bones and soft tissues wi thout acute abnormality Severe centrilobular emphysema in the vi sualized lungs bilaterally. IMPRESSION: Circumscribed 10 mm mass that is hyperdense similar to thyroid tissue anterior to the left hyoid bone, compati ble with ectopic thyroid. [id number] Dictated and approved by enrollment services vice president/fellow: Haja Whyte M.D. I, Dimitri Forte MD, personally reviewed the images and resident's/fellow's findings and agree with the final report. Procedure Note Interface, Radiology Results Incoming - 07/14/2019 4:32 PM FLIGHT INSPECTOR EXAMINATION: CT SOFT TISSUE NECK WO CONTRAST CLINICAL HISTORY: Palpable nodule or th yroid enlargement, Submantle submandibular nodule non-tender mobile TECHNIQUE: Routine nonenhanced CT study of the neck was performed with images obtained from the skull base to the thoracic inlet. Images were reviewed in soft tissue and bone detail. CT imaging was performed with iterative reconstruction technique and/or automated exposure control to reduce radiation dose. COMPARISON: CT neck 10/22/2004 FINDINGS: There is a superficial skin marker overl vinicio the anterior neck just left of midline. Subjacent to this marker is a round hyperdense 10 x 7 x 7 mm circumscribed lesion anterior to and abutting the hyoid bone but off midline to the left by approximately 1 cm. No pathologic cervical lymph nodes b y imaging criteria. No other mass lesion in the neck. Major salivary glands are slightly atrop hic without focal lesion. Left lobe 4 mm hypodense thyroid nodule. Paranasal sinuses and mastoid air cells are clear. Bilateral intraocular lens implants. Bones and soft tissues without acute abnormality Severe centrilobular emphysema in the vi sualized lungs bilaterally. IMPRESSION: Circumscribed 10 mm mass that is hyperde nse similar to thyroid tissue anterior to the left hyoid bone, compatible with ectopic thyroid. [id number] Dictated and approved by radiology resid ent/fellow: Beba Whyte M.D. I, Dimitri Forte MD, personally reviewed t he images and resident's/fellow's findings and agree with the final report. Performing Organization Address City/[facility] Centercode Phone Number [facility] [address] [place] [address] Partial thromboplastin time, activated (07/14/2019 7:00 AM FLIGHT INSPECTOR)Only the most recent of2 resultswithin the time period is included. PTT 32.2 23.0 - 36.0 [facility] Comment: [facility] HOSPITAL PTT therapeutic range for unfractionated heparin is 61.0-112.0 seconds which corresponds to Anti-Xa 0.3-0.7 U/ml. Specimen Blood Performing Organization Address City/[facility]/Zipcode Phone Number [facility] DEPARTMENT OF PATHOLOGY AND [address] [place], [place] [address] GENOMIC MEDICINE [address] [address] Prothrombin time with INR (07/14/2019 6:47 AM FLIGHT INSPECTOR) Prothrombin time 12.7 11.5 - 14.5 [facility] INR 1.0 [facility] Comment: MORMONISM [facility] International Normalized Ratio (INR) is a therapeu [facility] HOSPITAL monitoring tool for patients who are stable on oral anticoagulant therapy. An INR of 2.0-3.0 is suggested for deep vein thrombosis/pulmonary embolism. Specimen Blood Narrative Performed At PTT added and read back to Malissa Reyes [facility] DEPARTMEN T OF PATHOLOGY AND GENOMIC in IC 07/14/2019 06:59 LMID. MEDICINE Performing Organization Address City/State/Zipcode Phone Number [facility] DEPARTMENT OF PATHOLOGY AND [address] [place] [address] [place] [phone] Sputum culture (07/13/2019 4:30 PM FLIGHT INSPECTOR) [facility] Sputum culture Normal oral yenni isolated. [facility] isolate Comment: HOSPITAL Specimen Information Specimen Source: Sputum Specimen Site: Expectorated Specimen Sputum - Expectorated Performing Organization Address City/[facility]m Cancer Centercode Phone Number [facility] DEPARTMENT OF PATHOLOGY AND [address] [place] [address] [place] [address] Gram stain (07/13/2019 4:30 PM FLIGHT INSPECTOR) Pathologist [facility] Gram stain isolate Few WBC's [facility] Few Gram positive cocci in clusters [facility]OS[facility] MIKI Many Gram positive cocci in chains Comment: Specimen Information Specimen Source: Sputum Specimen Site: Expectorated Specimen Sputum - Expectorated Performing Organization Address City/[facility]/Zipcode Phone Number [facility] DEPARTMENT OF PATHOLOGY AND [address] [place] [address] [place] [address] POC glucose (07/13/2019 12:33 PM FLIGHT INSPECTOR)Only the most recent of4 resultswithin the time period is included. Pathologist [facility] nature POC glucose 82 65 - 99 mg/dL [facility] Comment: HOSPITAL Hand Driller Name: Karel Diego Device ID: [id number] Chartable: [facility] Notified RN Specimen Performing Organization Address City/[facility]/Zipcode Phone Number [facility] DEPARTMENT OF PATHOLOGY AND [address] [place], [place] [address] [address] Echocardiogram complete w contrast and 3D if needed (07/13/2019 8:40 AM FLIGHT INSPECTOR) Specimen Narrative Performed At [facility] Echo cardiography Report [id number] [facility], [facility] [address], [place] [address] Pat.Name: SEEMA ROMO.ID: [id number] .Date: 07/13/2019 Refer.MD: GORDON FENG MD Exam Time: 6:18:00 AM Study Type:R outine Echo Height: 57in Weight: 81lb BSA: 1.23 m2 Ag e: 1945,73Y Sex: FEMALE BP: 85/49 HR: 73 bpm Sonogr phr: Naty Hale RDCS Pat. Stat.:Inpatient Room: [id number] Study Status:Final Echo Event ID:[id number] Order ID: [id number] Reason for Study:H/o Pulmonary hypertens ion, RA pressures, PASP, Cardiac index History / Clinical:COPD Procedures: 2D Echo, Colorflow Doppler, Strain, Portable, Stat Race: C SUMMARY: Estimated EF is 65-69% RV size is mild to moderately enlarged. RV systolic function is mildly depressed. Estimated PA systolic pressure is 49 mmH g, assuming a mean RAP of 5 mmHg. FINDINGS: LV: LV EF is normal. Overall wall motion is n ormal. GLS = -18.4% (normal) Estimated EF is 65-69% Septal motion is paradoxical secondary to elevated RV diastolic pressure. RV: RV size is mild to moderately enlarged. R V systolic function is mildly depressed. TA PSE = 2.4 cm. LA: LA volume is mildly enlarge d. RA: RA volume is moderately enl arged. AO: Aortic root diameter is nor mal. MARTY: Trace posterolateral pericar dial effusion. AV: No structural AV abnormalit ies noted. A trace of aortic regurgitation. MV: No structural MV abnormalit ies noted. A trace of mitral regurgitation. PV: No structural PV abnormalit ies noted. TV: No structural TV abnormalit ies noted. Mild tricuspid regurgitation Welch: LV relaxation is reduced, ap propriate for age. LV filling pressure is normal. Other: Estimated PA systolic pressu re is 49 mmHg, assuming a mean RAP of 5 mmHg. MEASUREMENTS: 2D Parasternal Long [place] Ao An 2 cm LVPWd 0.74 cm Ao Rtd 2.7 cm Index 2.2 cm/m2 LA Ds 3 cm IVSd 0.81 cm RWT 0.39 LVIDd 3.8 cm Index 3.1 cm/m2 LV Mass 82 g (87-12 9) LVIDs 2.5 cm LVM In dex 67 g/m LV%fs 34 % LVOT 2 cm LA Sng Plane LA Area 17 cm (8.8-23.4) LA Vol 42 ml Index 34 ml/m2 LA LngAx 5.6 cm RA Sng Plane RA Vol 55 ml Index 45 ml/m2 RA LngAx 4.3 cm RA Area 18 cm (8.3-1 9.5) LVOT LVOT Area 3.1 cm DOPPLER Stroke Vol HR 64 bpm SV 65 ml alexys 2 cm CO 4.1 l/min TVI 21 cm CI 3.4 l/m/m Tm 316 msec Tricuspid Valve TV Alber 335 cm/s Signed 07/13/2019 09:14 AM Dawit Holland MD Procedure Note Interface, Radiology Results In - 2019 9:15 AM [facility] Echocardiography Report [address] [address] , [place] [address] Pat.Name: SEEMA ROMO Pat.I D: [id number] .Date: 07/13/2019 Refer.MD: GORDON FENG MD Exam Time: 6:18:00 AM Study Type:Routine Echo Height: 57in Weigh t: 81lb BSA: 1.23 m2 Age: 4 1945,73Y Sex: FEMALE BP: 85/49 HR: 73 bpm Sonog rphr: Naty Hale RDCS Pat. Stat.:Inpatient Room: [id number] Study Status:Final Echo Event ID:[id number] Order ID: [id number] Reason for Study:H/o Pulmonary hypertens ion, RA pressures, PASP, Cardiac index History / Clinical:COPD Procedures: 2D Echo, Colorflow Doppler, Strain, Portable, Stat Race: C SUMMARY: Estimated EF is 65-69% RV size is mild to moderately enlarged. RV systolic function is mildly depressed. Estimated PA systolic pressure is 49 mmH g, assuming a mean RAP of 5 mmHg. FINDINGS: LV: LV EF is normal. Overall wall motion is normal. GLS = -18.4% (normal) Estimated EF is 65- 69% Septal motion is paradoxical secondary to elev ated RV diastolic pressure. RV: RV size is mild to moderately enlarged. RV systolic function is mildly depressed. TAPSE = 2.4 cm. LA: LA volume is mildly enlarged. RA: RA volume is moderately enlarg ed. AO: Aortic root diameter is normal . MARTY: Trace posterolateral pericardi al effusion. AV: No structural AV abnormalities noted. A trace of aortic regurgitation. MV: No structural MV abnormalities noted. A trace of mitral regurgitation. PV: No structural PV abnormalities noted. TV: No structural TV abnormalities noted. Mild tricuspid regurgitation Welch: LV relaxation is reduced, appr opriate for age. LV filling pressure is normal. Other: Estimated PA systolic pressure is 49 mmHg, assuming a mean RAP of 5 mmHg. MEASUREMENTS: 2D Parasternal Long [place] Ao An 2 cm LVPW d 0.74 cm Ao Rtd 2.7 cm Inde x 2.2 cm/m2 LA Ds 3 cm IVSd 0.81 cm RWT 0.39 LVIDd 3.8 cm Inde x 3.1 cm/m2 LV Mass 82 g (87-129) LVIDs 2.5 cm LVM Index 67 g/m LV%fs 34 % LVOT 2 cm LA Sng Plane LA Area 17 cm (8.8-23.4) L A Vol 42 ml Index 34 ml/m2 LA LngAx 5.6 cm RA Sng Plane RA Vol 55 ml Inde x 45 ml/m2 RA LngAx 4.3 cm RA Area 18 cm (8.3-19.5) LVOT LVOT Area 3.1 cm DOPPLER Stroke Vol HR 64 bpm SV 65 ml alexys 2 cm CO 4.1 l/min TVI 21 cm CI 3.4 l/m/m Tm 316 msec Tricuspid Valve TV Alber 335 cm/s Signed 07/13/2019 09:14 AM Dawit Holland MD Performing Organization Address City/[facility] Centercode Phone Number [facility] [address] [place] [address] Thyroid stimulating hormone (07/13/2019 5:30 AM FLIGHT INSPECTOR) Pathologist Sig nature TSH 0.51 0.27 - 4.20 uIU/mL [facility] ITAL Specimen Plasma specimen Performing Organization Address [facility]/Zipcode Phone Number [facility] DEPARTMENT OF PATHOLOGY AND [address] [place], [place] [address] [address] [address] B natriuretic peptide (07/13/2019 5:30 AM FLIGHT INSPECTOR)Only the most recent of2 results within the time period is included. Pathologist Sig nature BNP 153 (H) 0 - 100 pg/mL [facility] Specimen Blood Performing Organization Address City/[facility] Centercode Phone Number [facility] DEPARTMENT OF PATHOLOGY AND [address] [place] [address] [phone] [address] Lactic acid level (07/13/2019 5:30 AM FLIGHT INSPECTOR)Only the most recent of3 results within the time period is included. Pathologist Sig nature Lactic acid 1.0 0.5 - 2.2 mmol/L [facility] Specimen Plasma specimen Performing Organization Address City/[facility] Centercode Phone Number [facility] DEPARTMENT OF PATHOLOGY AND [address] [place] [address] [address] [address] Comprehensive metabolic panel (07/13/2019 5:30 AM FLIGHT INSPECTOR)Only the most recent of3 resultswithin the time period is included. Sodium 140 135 - 148 [facility] mEq/L [facility] Potassium 4.5 3.5 - 5.0 [facility] mEq/L [facility] Chloride 106 98 - 112 mEq/L [facility] CO2 24 24 - 31 mEq/L [facility] Anion gap 10@ANIO 7 - 15 mEq/L [facility] BUN 14 8 - 23 mg/dL [facility] Creatinine 0.67 0.50 - 0.90 [facility] mg/dL HOSPITAL Glucose 143 (H) 65 - 99 mg/dL [facility] Calcium 8.5 (L) 8.8 - 10.2 [facility] mg/dL HOSPITAL Protein 6.3 6.3 - 8.3 g/dL [facility] Comment: HOSPITAL Vjpxotx1728.6-7.0 g/dL 1 nken3742.4-7.6 g/dL 7 months-0jnky338.1-7.3 g/dL 1-2 ndgpa461.6-7.5 g/dL >3 .0-8.0 g/dL 18-9861253.3-8.3 g/dL Albumin 3.0 (L) 3.5 - 5.0 g/dL [facility] A/G ratio 0.9 0.7 - 3.8 [facility] Alkaline phosphatase 78 35 - 104 U/L [facility] AST 14 10 - 35 U/L [facility] ALT 19 5 - 50 U/L [facility] Total bilirubin <0.2 0.0 - 1.2 [facility] mg/dL HOSPITAL Specimen Plasma specimen Performing Organization Address City/[facility] Centercode Phone Number [facility] DEPARTMENT OF PATHOLOGY AND [address] [place], [place] [address] GEN[address] [address] Troponin (07/12/2019 10:08 PM FLIGHT INSPECTOR)Only the most recent of3 resultswithin the time period is included. Troponin 0.011 0.000 - 0.040 [facility] Comment: ng/mL HOSPITAL In patients suspected of having a myocardial infarctio n, along with all other appropriate clinical measures and actions includ ing ECG and other diagnostics as appropriate, measure Ultra TnI at 0 hrs and at 3 hrs. Myocardial infarction VERY LIKELY The 0 hr TnI level is > 0.10 ng/mL Myocardial infarction LIKELY The 0 hr TnI level is > 0.04 ng/mL and 3 hr level is i ncreased or decreased by at least 0.020 ng/mL Myocardial infarction VERY UNLIKELY Both the 0 hr and 3 hr TnI levels <= 0.04 ng/mL(within normal limits) OR 0 hr is > 0.04 ng/mL and 3 hr is increased OR decreased by less than 0.020 ng/mL Specimen Plasma specimen Performing Organization Address City/[facility] Centercode Phone Number [facility] DEPARTMENT OF PATHOLOGY AND [address] [place], [place] [address] [address] Arterial blood gas (07/12/2019 9:12 PM FLIGHT INSPECTOR)Only the most recent of2 results within the time period is included. Pathologist [facility] nature pH, arterial 7.41 7.35 - 7.45 [facility] pCO2, arterial 38 35 - 45 mmHg [facility] pO2, arterial 77 (L) 80 - 90 mmHg [facility] Bicarbonate, 23.6 21.0 - 28.0 [facility] mmol/L HOSPITAL Base excess, 0 -2 - 2 mEq/L [facility] O2 saturation, 95 95 - 100 % [facility] Specimen Blood Performing Organization Address City/[facility]/Zipcode Phone Number [facility] DEPARTMENT OF PATHOLOGY AND [address] [place] [phone] Urine culture (07/12/2019 6:15 PM FLIGHT INSPECTOR) [facility] Urine culture SEE COMMENTComment: [facility] Bacteriuria screen HOSPITAL negative. Specimen Performing Organization Address City/[facility]/Zipcode Phone Number [facility] DEPARTMENT OF PATHOLOGY AND [address] [place], [place] [address] [address] [place] [address] Urinalysis screen and microscopy, with reflex to culture (07/12/2019 6:08 PM FLIGHT INSPECTOR) Specimen site Clean catch [facility] Color, UA Yellow [facility] Appearance, UA Clear [facility] Specific gravity, UA 1.019 1.001 - 1.035 [facility] pH, UA 6.0 5.0 - 8.5 [facility] Protein, UA Negative Negative [facility] Glucose, UA Negative Negative [facility] Ketones, UA Negative Negative [facility] Bilirubin, UA Negative Negative [facility] Blood, UA Negative Negative [facility] Nitrite, UA Negative Negative [facility] Urobilinogen, UA <2.0 <2.0 [facility] Leukocyte esterase, Negative Negative [facility] Epithelial cells, UA 1 /HPF [facility] WBC, UA <1 0 - 4 /HPF [facility] RBC, UA <1 0 - 5 /HPF [facility] Bacteria, UA Few None seen [facility] Yeast, UA None seen [facility] Yeast with None seen [facility] pseudohyphae, UA HOSPITAL Hyaline casts, UA 4 /LPF [facility] Specimen Urine Performing Organization Address [facility] Centercode Phone Number [facility] DEPARTMENT OF PATHOLOGY AND [address] [place] [address] [phone] [address] Respiratory pathogen panel (07/12/2019 4:56 PM FLIGHT INSPECTOR) Respiratory Positive for Rhinovirus/Enterovirus [place] pathogen panel MORMONISM Negative for all other pathogens tested: HOSPITAL Negative for Adenovirus Negative for Coronavirus HKU1 Negative for Coronavirus NL63 Negative for Coronavirus 229E Negative for Coronavirus OC43 Negative for Human Metapneumovirus Negative for Influenza A Negative for Influenza A/H1 Negative for Influenza A/H3 Negative for Influenza A/H1-2009 Negative for Influenza B Negative for Parainfluenza Virus 1 Negative for Parainfluenza Virus 2 Negative for Parainfluenza Virus 3 Negative for Parainfluenza Virus 4 Negative for Respiratory Syncytial Virus Negative for Bordetella pertussis Negative for Chlamydophila pneumoniae Negative for Mycoplasma pneumoniae This real-time PCR assay detects the presence of nucle ic acids (RNA or DNA) for the respiratory pathogens liste d. A result of "Not-detected" does not exclude the possib ility of the presence of one or more pathogens at concentrat ions less than the detectable limits of the assa (A) Comment: Specimen Information Specimen Source: Nares Specimen Site: Left Specimen Nares - Left Performing Organization Address City/[facility]/Zipcode Phone Number [facility] DEPARTMENT OF PATHOLOGY AND [address] [place], [place] [address] [address] XR Chest 1 Vw Portable (07/12/2019 4:15 PM FLIGHT INSPECTOR) Specimen Narrative Performed At EXAMINATION: XR CHEST 1 VW PORTABLE [facility] CLINICAL HISTORY: sob COMPARISON: CT chest 08/09/2018. Chest radiograph 11/15/2017 IMPRESSION: Prominent emphysematous changes are unchanged from the prior radiograph and better seen on prior CT. No focal consolidation or large pleural effusion. Normal cardiomediastinal silhouette. Interval angulated right sixth posterior rib fracture appears to be chronic, correlate with exam.. Procedure Note Interface, Radiology Results Incoming - 07/12/2019 4:22 PM FLIGHT INSPECTOR EXAMINATION: XR CHEST 1 VW PORTABLE CLINICAL HISTORY: sob COMPARISON: CT chest 08/09/2018. Chest r adiograph 11/15/2017 IMPRESSION: Prominent emphysematous changes are unch anged from the prior radiograph and better seen on prior CT. No focal consolidation or large pleural effusion. Normal cardiomediastinal silhouette. Interval angulated right sixth posterior rib fracture appears to be chronic, correlate with exam.. Performing Organization Address [facility]/Zipcode Phone Number [facility] [address] [place] [address] Blood culture, aerobic & anaerobic (07/12/2019 3:31 PM FLIGHT INSPECTOR) Blood culture No growth after 5 days of incubation. MAYNOR VELAZQUEZ [facility] isolate Comment: HOSPITAL Specimen Information Specimen Source: Blood Specimen Site: Antecubital Left Specimen Blood Performing Organization Address [facility] Centercone Phone Number [facility] DEPARTMENT OF PATHOLOGY AND [address] [place] [phone] GENOMIC MEDICINE [address] [address] ECG ED Preliminary Interpretation - Not an Order (07/12/2019 3:12 PM FLIGHT INSPECTOR) Narrative Performed At Jordan Craig MD 08/14/2019 9:51 AM ECG ED Preliminary Interpretation - Not an Order Performed by: Jordan Craig MD Authorized by: Jordan Craig MD ECG reviewed by ED Physician in the abse nce of a tugboat operator: yes Interpretation: Interpretation: abnormal Rate: ECG rate: 111 ECG rate assessment: tachycardic Rhythm: Rhythm: sinus tachycardia QRS: QRS axis: Left QRS intervals: Normal ST segments: ST segments: Normal Comments: Poor baseline. ECG 12 lead (07/12/2019 2:47 PM FLIGHT INSPECTOR) Pathologist Sig nature Ventricular rate 111 [facility] Atrial rate 111 [facility] IA interval 130 [facility] QRSD interval 82 [facility] QT interval 328 [facility] QTC interval 446 [facility] P axis 1 87 [facility] QRS axis 1 270 [facility] T wave axis 7 [facility] EKG impression Sinus tachycardia-Left [facility] axis deviation-Low voltage QRS-Cannot rule out Anterior infarct , age undetermined-Abnormal ECG-No previous ECGs available-Electronicall y Signed By Gracie Barragan MD ([id number]) on 07/12/2019 6:36:46 PM Specimen Narrative Performed At This result has an attachment that is no t available. Performing Organization Address City/State/Zipcode Phone Number [facility] MUSE [address] [place] [address] Bone Density Peripheral (04/19/2019 1:21 PM CDT) Specimen Narrative Performed At EXAMINATION: BONE DENSITY, BONE DENSIT Y PERIPHERAL [facility] CLINICAL HISTORY: M81.0 Age-related osteoporosis wit hout current pathological fracture, AGE-RELATED OSTEOPOROSIS W O CU RRENT PATHOLOGICAL FRACTURE COMPARISON: None. The results of this study expressed as bone mineral de nsity (BMD) were as follows: AP spine (L1-L4) BMD: 0.90 g/cm2 T-Score: -2.3 Z-Score: 0.4 Percent change: No prior exam. % Dual Femur (Total Mean): BMD: 0.67 g/cm2 T-Score: -2.7 Z-Score: -0.3 Percent change: No prior exam. % Forearm (Radius 33%): BMD: 0.47 g/cm2 T-Score: -4.7 Z-Score: -4.4 Percent change: No prior exam. % Femur FRAX: Risk factors: None. 10 year probability of fracture: 1. Major osteoporotic: 14.7% 2. Hip:5.4% Trabecular Bone Score (TBS): TBS L1-L4: 1.21, >1.350 normal, 1.200-1.350 partiall y degraded microarchitecture, <1.200 degraded micro architecture The 10 year probability of fracture, adj usted for FRAX: Major Osteoporotic Fracture: 15.8% Hip Fracture: 5.8% Impression: Proximal femur and forearm values represent osteoporos is. Lumbar spine value indicates osteopenia. Notes: *The world health organization (WHO) has classified th e patient's T-score as follows: Normal: T score at or above -1.0 Osteopenia: T score between -1.0 and - 2.5 Osteoporosis: T score at or below -2.5 (osteoporosis , increased fracture risk) For premenopausal women, men under the age 50 years, and children the WHO classification does not apply. In these individual s please assess bone mineral density with Z scores for e ach skeletal site examined. Z scores above -2.0: Within expected ran ge for age. Z scores lower than -2.0: Low bone den sity for age. The TBS is derived from the texture of the DEXA elizabeth ge and has been shown to be related to bone microarchitecture and frac ture risk. This data provides information independent of BMD value; is used as a complement to the data obtained from the DEXA analysis and the clinical examination. The TBS can ass ist the healthcare professional in assessment of fracture risk and in mon itoring the effect of treatments on patient over time. [facility]-[id number] Procedure Note [facility], Radiology Results Incoming - 04/19/2019 1:26 PM CDT EXAMINATION: BONE DENSITY, BONE DENSITY PERIPHERAL CLINICAL HISTORY: M81.0 Age-related ost eoporosis without current pathological fracture, AGE-RELATED OSTEOPOROSIS W O CURRENT PATHOLOGICAL FRACTURE COMPARISON: None. The results of this study expressed as b one mineral density (BMD) were as follows: AP spine (L1-L4) BMD: 0.90 g/cm2 T-Score: -2.3 Z-Score: 0.4 Percent change: No prior exam. % Dual Femur (Total Mean): BMD: 0.67 g/cm2 T-Score: -2.7 Z-Score: -0.3 Percent change: No prior exam. % Forearm (Radius 33%): BMD: 0.47 g/cm2 T-Score: -4.7 Z-Score: -4.4 Percent change: No prior exam. % Femur FRAX: Risk factors: None. 10 year probability of fracture: 1. Major osteoporotic: 14.7% 2. Hip:5.4% Trabecular Bone Score (TBS): TBS L1-L4: 1.21, >1.350 normal, 1.200-1 .350 partially degraded microarchitecture, <1.200 degraded microarchitecture The 10 year probability of fracture, adj usted for FRAX: Major Osteoporotic Fracture: 15.8% Hip Fracture: 5.8% Impression: Proximal femur and forearm values repres ent osteoporosis. Lumbar spine value indicates osteopenia. Notes: *The world health organization (WHO) has classified the patient's T-score as follows: Normal: T score at or above -1.0 Osteopenia: T score between -1.0 and -2 .5 Osteoporosis: T score at or below -2.5 (osteoporosis, increased fracture risk) For premenopausal women, men under the age 50 years, and children the WHO classification does not apply. In these individuals please assess bone mineral density with Z scores for each skeletal site examined. Z scores above -2.0: Within expected ran ge for age. Z scores lower than -2.0: Low bone dens ity for age. The TBS is derived from the texture o f the DEXA image and has been shown to be related to bone microarchitecture and fracture risk. This data provides information independent of BMD value; is used as a complement to the data obtained from the DEXA analysis and the clinical examination. T he TBS can assist the healthcare professional in assessment of fracture risk and in monitoring the effect of treatments on patient over time. [facility]-[id number] Performing Organization Address City/State/Zipcode Phone Number [facility] [address] [place] [address] Bone Density (04/19/2019 1:20 PM CDT) Specimen Narrative Performed At EXAMINATION: BONE DENSITY, BONE DENSIT Y PERIPHERAL HM [facility] CLINICAL HISTORY: M81.0 Age-related osteoporosis wit hout current pathological fracture, AGE-RELATED OSTEOPOROSIS W O CU RRENT PATHOLOGICAL FRACTURE COMPARISON: None. The results of this study expressed as bone mineral de nsity (BMD) were as follows: AP spine (L1-L4) BMD: 0.90 g/cm2 T-Score: -2.3 Z-Score: 0.4 Percent change: No prior exam. % Dual Femur (Total Mean): BMD: 0.67 g/cm2 T-Score: -2.7 Z-Score: -0.3 Percent change: No prior exam. % Forearm (Radius 33%): BMD: 0.47 g/cm2 T-Score: -4.7 Z-Score: -4.4 Percent change: No prior exam. % Femur FRAX: Risk factors: None. 10 year probability of fracture: 1. Major osteoporotic: 14.7% 2. Hip:5.4% Trabecular Bone Score (TBS): TBS L1-L4: 1.21, >1.350 normal, 1.200-1.350 partiall y degraded microarchitecture, <1.200 degraded micro architecture The 10 year probability of fracture, adj usted for FRAX: Major Osteoporotic Fracture: 15.8% Hip Fracture: 5.8% Impression: Proximal femur and forearm values represent osteoporos is. Lumbar spine value indicates osteopenia. Notes: *The world health organization (WHO) has classified th e patient's T-score as follows: Normal: T score at or above -1.0 Osteopenia: T score between -1.0 and - 2.5 Osteoporosis: T score at or below -2.5 (osteoporosis , increased fracture risk) For premenopausal women, men under the age 50 years, and children the WHO classification does not apply. In these individual s please assess bone mineral density with Z scores for e ach skeletal site examined. Z scores above -2.0: Within expected ran ge for age. Z scores lower than -2.0: Low bone den sity for age. The TBS is derived from the texture of the DEXA elizabeth ge and has been shown to be related to bone microarchitecture and frac ture risk. This data provides information independent of BMD value; is used as a complement to the data obtained from the DEXA analysis and the clinical examination. The TBS can ass ist the healthcare professional in assessment of fracture risk and in mon itoring the effect of treatments on patient over time. [facility]-[id number] Procedure Note Interface, Radiology Results Incoming - 04/19/2019 1:26 PM CDT EXAMINATION: BONE DENSITY, BONE DENSITY PERIPHERAL CLINICAL HISTORY: M81.0 Age-related ost eoporosis without current pathological fracture, AGE-RELATED OSTEOPOROSIS W O CURRENT PATHOLOGICAL FRACTURE COMPARISON: None. The results of this study expressed as b one mineral density (BMD) were as follows: AP spine (L1-L4) BMD: 0.90 g/cm2 T-Score: -2.3 Z-Score: 0.4 Percent change: No prior exam. % Dual Femur (Total Mean): BMD: 0.67 g/cm2 T-Score: -2.7 Z-Score: -0.3 Percent change: No prior exam. % Forearm (Radius 33%): BMD: 0.47 g/cm2 T-Score: -4.7 Z-Score: -4.4 Percent change: No prior exam. % Femur FRAX: Risk factors: None. 10 year probability of fracture: 1. Major osteoporotic: 14.7% 2. Hip:5.4% Trabecular Bone Score (TBS): TBS L1-L4: 1.21, >1.350 normal, 1.200-1 .350 partially degraded microarchitecture, <1.200 degraded microarchitecture The 10 year probability of fracture, adj usted for FRAX: Major Osteoporotic Fracture: 15.8% Hip Fracture: 5.8% Impression: Proximal femur and forearm values repres ent osteoporosis. Lumbar spine value indicates osteopenia. Notes: *The world health organization (WHO) has classified the patient's T-score as follows: Normal: T score at or above -1.0 Osteopenia: T score between -1.0 and -2 .5 Osteoporosis: T score at or below -2.5 (osteoporosis, increased fracture risk) For premenopausal women, men under the age 50 years, and children the WHO classification does not apply. In these individuals please assess bone mineral density with Z scores for each skeletal site examined. Z scores above -2.0: Within expected ran ge for age. Z scores lower than -2.0: Low bone dens ity for age. The TBS is derived from the texture o f the DEXA image and has been shown to be related to bone microarchitecture and fracture risk. This data provides information independent of BMD value; is used as a complement to the data obtained from the DEXA analysis and the clinical examination. T he TBS can assist the healthcare professional in assessment of fracture risk and in monitoring the effect of treatments on patient over time. [facility]-[id number] Performing Organization Address City/State/Zipcode Phone Number [facility] [address] [place] [address] Scl-70 antibody (11/09/2018 3:25 PM CDT) Scleroderma SCL-70 <0.2 0.0 - [facility] Scl-70 antibody Negative [facility] Comment: [facility] Anti-Scl-70 (topoisomerase I) antibodies are found in patients with HOSPITAL systemic sclerosis (SSc or scleroderma), and have been reported to be predictive of diffuse cutaneous involvement. Anti-Scl- 70 antibodies may also be present in patients with systemic lupus erythe matosus (SLE). Specimen Serum Performing Organization Address [facility] Phone Number [facility] DEPARTMENT OF PATHOLOGY AND [address] [place] [address] [phone] [address] DNA Ab screen (11/09/2018 3:25 PM CDT) Pathologist Sig nature DNA Ab screen Not Detected Not-Detected [facility] Specimen Blood Performing Organization Address City/[facility] Centercode Phone Number [facility] DEPARTMENT OF PATHOLOGY AND [address] [place] [address] [phone] [address] MARY titer (11/09/2018 3:25 PM CDT) Pathologist Sig nature MARY titer 1:160 (A) Not-Detected [facility] MARY pattern Atypical speckled Not-Detected [facility] () [facility] Specimen Blood Performing Organization Address [facility] Phone Number [facility] DEPARTMENT OF PATHOLOGY AND [address] [place] [address] [phone] [address] Protein, urine, random (11/09/2018 3:25 PM CDT) Pathologist Sig nature Protein, urine random 9 mg/dL [facility] Specimen Urine Performing Organization Address [facility] Phone Number [facility] DEPARTMENT OF PATHOLOGY AND [address] [place] [address] [phone] [address] Creatinine level, urine, random (11/09/2018 3:25 PM CDT) Pathologist Sig nature Creatinine, urine, 31 mg/dL [facility] Specimen Urine Performing Organization Address City/[facility] Centercode Phone Number [facility] DEPARTMENT OF PATHOLOGY AND [address] [place] [address] [phone] [address] Urinalysis, automated with microscopy (11/09/2018 3:25 PM CDT) Pathologist Sig nature Color, UA Straw [facility] Appearance, UA Clear [facility] Specific gravity, UA 1.006 1.001 - 1.035 [facility] pH, UA 6.0 5.0 - 8.5 [facility] Protein, UA Negative Negative [facility] Glucose, UA Negative Negative [facility] Ketones, UA Negative Negative [facility] Bilirubin, UA Negative Negative [facility] Blood, UA Negative Negative [facility] Nitrite, UA Negative Negative [facility] Urobilinogen, UA <2.0 <2.0 [facility] Leukocyte esterase, Negative Negative [facility] Epithelial cells, UA <1 /HPF [facility] WBC, UA <1 0 - 4 /HPF [facility] RBC, UA None seen 0 - 5 /HPF [facility] Bacteria, UA None seen None seen [facility] Yeast, UA None seen [facility] Yeast with None seen [facility] pseudohyphae, HOSPITAL Specimen Urine Performing Organization Address City/[facility] Centercode Phone Number [facility] DEPARTMENT OF PATHOLOGY AND [address] [place] [address] [phone] [address] Sedimentation rate (11/09/2018 3:25 PM CDT) Pathologist Sig nature Sedimentation rate 9 0 - 20 mm/hr [facility] Specimen Blood Performing Organization Address City/[facility] Centercone Phone Number [facility] DEPARTMENT OF PATHOLOGY AND [address] [place] [address] [phone] [address] C3 complement component (11/09/2018 3:25 PM CDT) Pathologist Sig nature C3 complement 142 90 - 180 mg/dL [facility] Spec[facility] Plasma specimen Performing Organization Address [facility] Centercode Phone Number [facility] DEPARTMENT OF PATHOLOGY AND [address] [place] [address] [phone] [address] C4 complement component (11/09/2018 3:25 PM CDT) Pathologist Sig nature C4 complement 28 10 - 40 mg/dL [facility] Specimen Plasma specimen Performing Organization Address [facility] Centercode Phone Number [facility] DEPARTMENT OF PATHOLOGY AND [address] [place] [address] [phone] [address] C-reactive protein (11/09/2018 3:25 PM CDT) Pathologist Sig nature CRP <0.30 0.00 - 0.50 mg/dL [facility] Specimen Plasma specimen Performing Organization Address City/[facility] Centercode Phone Number [facility] DEPARTMENT OF PATHOLOGY AND [address] [place], [place] [phone] [place] [id number] [place] [address] MARY (11/09/2018 3:25 PM CDT) Pathologist Sig nature MARY screen Positive (A) Negative [facility] Specimen Blood Performing Organization Address City/[facility] Centercode Phone Number [facility] DEPARTMENT OF PATHOLOGY AND [address] [place] [phone] [facility] [address] [place] [phone] after 11/06/2018 Insurance Payer Benefit Plan / Subscriber ID Effective Dates Phone Addre ss Type Group MEDICARE MEDICARE PART A xxxxxxxxxxx 2001-Present [place], [place] Medicare AND B AARP AARP SUPPLEMENT xxxxxxxxxxx 2008-Present Commercial [id number] Advance Directives For more information, please contact: [phone] Type Date Recorded Patient Financial Services Internship Explanati on Advance Directives, Living Will 08/18/2004 7:57 PM and Medical Power of County Administrator
--- OUTSIDE RECORDS SUMMARY | 2019-11-07 15:09 | XMS REPORT | Clinical Summary ---
:1945 Author Organization [facility] Address [address] [place] [address] Care Team Providers Name Role Phone CrawfordJose lynn Primary Care Provider Allergies Active Allergy Reactions Severity Noted Date Comments Sulfa (Sulfonamide Antibiotics) Swelling 8 Medications Medication Sig Dispensed Refills Start Date End Date Status turmeric 400 mg Take by mouth daily. 0 Active Cap omega-3 fatty Take 1 g by mouth 0 Active acids-fish oil daily. 340-1,000 mg Cap per capsule citalopram Take 40 mg by mouth 0 Active (CELEXA) 40 MG daily. tablet montelukast Take 10 mg by mouth 0 Active (SINGULAIR) 10 mg nightly. tablet guaiFENesin Take 1,200 mg by 0 A ctive (MUCINEX) 600 mg mouth daily. 12 hr tablet glucosamine Take by mouth daily. 0 Active sulfate (GLUCOSAMINE) 500 mg Tab albuterol HFA Inhale 2 puffs by 0 Active (PROAIR HFA) 90 mouth via inhaler mcg/actuation every 4 (four) hours inhaler as needed for Wheezing. albuterol Take 1 ampule by 0 Act gallo (ACCUNEB) 1.25 nebulization 2 (two) mg/3 mL nebulizer times daily. solution acyclovir Take 200 mg by mouth 0 Active (ZOVIRAX) 200 MG 2 (two) times daily. capsule cholecalciferol, Take 2,000 Units by 0 Active vitamin D3, mouth daily . (VITAMIN D3) 1,000 unit capsuleIndications : Take 2 Tabs Daily tiotropium bromide Inhale by mouth via 0 Active (SPIRIVA RESPIMAT) inhaler every 2.5 mcg/actuation morning. MistIndications: 2 puffs in the morning budesonide-formote Inhale 2 puffs by 0 Active rol (SYMBICORT) mouth via inhaler 2 80-4.5 (two) times daily. mcg/actuation inhaler ALPRAZolam (XANAX) Take 0.5 mg by mouth 0 Active 0.5 MG tablet as needed for Anxiety. glucosamine-chondr Take 1 tablet by 0 Active oitin 500-400 mg mouth 3 (three) tablet times daily. denosumab (PROLIA) Inject 60 mg 0 Active 60 mg/mL Syrg subcutaneously every 6 (six) months. ambrisentan Take 10 mg by mouth 0 Active (LETAIRIS) 10 MG daily. tablet predniSONE Take 2 tablets (40 10 tablet 0 03/23/2019 9 (DELTASONE) 20 MG mg total) by mouth tablet daily for 5 days. levoFLOXacin Take 1 tablet (750 2 tablet 0 03/23/2019 019 (LEVAQUIN) 750 MG mg total) by mouth tablet every other day for 4 days. Active Problems Problem Noted Date Acute hypoxemic respiratory failure 03/20/2019 Heart failure 06/11/2018 Encounters Date Type Specialty Care Team Description 03/20/2019 - Hospital Encounter Cardiology Mj Alexander Acut e hypoxemic respiratory failure ([facility]); 03/23/2019 Acute exacerbation of chronic obstructiv e pulmonary disease (COPD) ([facility]) Maykel Bullock MD Heinen, Allison P., MD Changela, Kinjal M., MD 03/20/2019 Travel after 11/06/2018 Social History Tobacco Use Types Packs/Day Years [...] six or more drinks on one occasion? No t asked Sex Assigned at Date Recorded Not on file Job Start Date Occupation Industry Not on file Not on file Not on file Travel History Travel Start Travel End No recent travel history available. Last Filed Vital Signs Vital Sign Reading Time Taken Blood Pressure 115/53 03/23/2019 11:00 AM CDT Pulse 66 03/23/2019 11:00 AM CDT Temperature 36.5 C (97.7 F) 03/23/2019 11:00 AM CDT Respiratory Rate 18 03/23/2019 11:00 AM CDT Oxygen Saturation 95% 03/23/2019 11:00 AM CDT Inhaled Oxygen Concentration - - Weight 39 kg (85 lb 15.7 oz) 03/23/2019 8:03 A M CDT Height 146.1 cm (4' 9.52") 03/20/2019 6:00 AM CDT Body Mass Index 18.27 03/23/2019 8:03 AM CDT Plan of Treatment Not on file Procedures Procedure Name Priority Date/Time Associated Comments Diagnosis RHYTHM STRIP - SCAN 03/25/2019 12:16 PM CDT RHYTHM STRIP - SCAN 03/24/2019 2:33 PM CDT VANCOMYCIN LEVEL, Timed 03/23/2019 9:05 Result s for this TROUGH AM CDT procedure are i n the results section. CBC W/PLT COUNT & Routine 03/23/2019 4:38 Result s for this AUTO DIFFERENTIAL AM CDT procedure are in the results section. BASIC METABOLIC PANEL Routine 03/23/2019 4:38 Re sults for this (7) AM CDT procedure are i n the results section. CBC W/PLT COUNT & Routine 03/23/2019 4:38 Result s for this AUTO DIFFERENTIAL AM CDT procedure are in the results section. CBC W/PLT COUNT & Routine 03/22/2019 4:25 Result s for this AUTO DIFFERENTIAL AM CDT procedure are in the results section. BASIC METABOLIC PANEL Routine 03/22/2019 4:25 Re sults for this (7) AM CDT procedure are i n the results section. CBC W/PLT COUNT & Routine 03/22/2019 4:25 Result s for this AUTO DIFFERENTIAL AM CDT procedure are in the results section. RESPIRATORY PANEL Routine 03/21/2019 3:56 Result s for this [facility] PM CDT procedure are i n the results section. VANCOMYCIN LEVEL, Timed 03/21/2019 9:44 Result s for this TROUGH AM CDT procedure are i n the results section. CBC W/PLT COUNT & Routine 03/21/2019 7:32 Result s for this AUTO DIFFERENTIAL AM CDT procedure are in the results section. BASIC METABOLIC PANEL Routine 03/21/2019 7:32 Re sults for this (7) AM CDT procedure are i n the results section. CBC W/PLT COUNT & Routine 03/21/2019 7:32 Result s for this AUTO DIFFERENTIAL AM CDT procedure are in the results section. SPUTUM CULTURE + GRAM Routine 03/20/2019 11:41 Re sults for this STAIN AM CDT procedure are i n the results section. (CELLAVISION MANUAL Routine 03/20/2019 8:43 Resu lts for this DIFF) AM CDT procedure are i n the results section. CBC W/PLT COUNT & Routine 03/20/2019 8:43 Result s for this AUTO DIFFERENTIAL AM CDT procedure are in the results section. CBC W/PLT COUNT & Routine 03/20/2019 8:43 Result s for this AUTO DIFFERENTIAL AM CDT procedure are in the results section. STREP PNEUMONIAE Routine 03/20/2019 8:27 Results for this ANTIGEN AM CDT procedure are i n the results section. LEGIONELLA URINE Routine 03/20/2019 8:14 Results for this ANTIGEN AM CDT procedure are i n the results section. BASIC METABOLIC PANEL Add-On 03/20/2019 6:42 Re sults for this (7) AM CDT procedure are i n the results section. CREATININE Routine 03/20/2019 6:42 Results for this AM CDT procedure are i n the results section. after 11/06/2018 Results RHYTHM STRIP - SCAN (03/25/2019 12:16 PM CDT)Only the most recent of2 results within the time period is included. Narrative Performed At This result has an attachment that is no t available. Vancomycin level, trough (03/23/2019 9:05 AM CDT)Only the most recent of2 resultswithin the time period is included. Vancomycin Tr 11.9 10.0 - 20.0 ug/mL [facility] Specimen Blood Narrative Performed At Please draw 30 min prior to scheduled do se. [facility] If vancomycin trough level > 20 mcg/mL, hold next vancomycin dose, and contact MD and pharmacist. Performing Organization Address City/State/Zipcode Phone Number [facility] [address] [place] [address] CENTER CBC with platelet count + automated diff (03/23/2019 4:38 AM CDT)Only the most recent of4 resultswithin the time period is included. WBC 12.8 (H) 3.5 - 10.5 K/L [facility] RBC 3.65 (L) 3.93 - 5.22 M/L [facility] Hemoglobin 11.0 (L) 11.2 - 15.7 GM/DL [facility] Hematocrit 34.0 (L) 34.1 - 44.9 % [facility] MCV 93.2 79.4 - 94.[address] [facility] MCH 30.1 25.6 - 32.[address] [facility] MCHC 32.4 32.2 - 35.5 GM/DL [facility] RDW 14.2 11.7 - 14.4 % [facility] Platelets 253 150 - 450 K/CU MM [facility] MPV 9.6 9.4 - 12.[address] [facility] nRBC 0 0 - 0 /100 WBC [facility] % Neutros 68 % [facility] % Lymphs 21 % [facility] % Monos 10 % [facility] % Eos 0 % [facility] % Baso 0 % [facility] # Neutros 8.68 (H) 1.56 - 6.13 K/L [facility] # Lymphs 2.66 1.18 - 3.74 K/L [facility] # Monos 1.33 (H) 0.24 - 0.36 K/L [facility] # Eos 0.04 0.04 - 0.36 K/L [facility] # Baso 0.01 0.01 - 0.08 K/L [facility] Immature Granulocytes-Relative 1 0 - 1 % C [facility] Specimen Blood Performing Organization Address City/State/Zipcode Phone Number [facility] [address] [place] [address] [place] Basic Metabolic Panel (03/23/2019 4:38 AM CDT)Only the most recent of4 results within the time period is included. Sodium 139 136 - 145 meq/L [facility] Potassium 3.8 3.5 - 5.1 meq/L [facility] Chloride 107 98 - 107 meq/L [facility] CO2 28 22 - 29 meq/L [facility] BUN 14 7 - 21 mg/dL [facility] Creatinine 0.65 0.57 - 1.25 mg/dL [facility] Glucose 97 70 - 105 mg/dL [facility] Calcium 8.5 8.4 - 10.2 mg/dL [facility] EGFR 89Comment: ESTIMATED GFR IS mL/min/1.73 sq m [facility] NOT ACCURATE CREATININE [facility] CLEARANCE IN PREDICTING GLOMERULAR FILTRATION RATE. ESTIMATED GFR IS NOT APPLICABLE FOR DIALYSIS PATIENTS. Specimen Blood Performing Organization Address City/State/Zipcode Phone Number [facility] [address] [place] [address] CENTER Respiratory Panel [facility] (03/21/2019 3:56 PM CDT) Human Metapneumovirus Not detected Not detected, [facility] Rhinovirus Not detected Not detected, [facility] Influenza A Not detected Not detected, [facility] INFLUENZA A (NO SUBTYPE) [facility] Influenza A subtype H1 [facility] Influenza A Subtype H3 [facility] Influenza A Subtype H1-2009 [facility] Influenza B Not detected Not detected, [facility] Respiratory Syncytial Virus Not detected Not detected, [facility] Parainfluenza Virus 1 Not detected Not detected, [facility] Parainfluenza Virus 2 Not detected Not detected, [facility] Parainfluenza virus 3 Not detected Not detected, [facility] Parainfluenza Virus 4 Not detected Not detected, [facility] Adenovirus Not detected Not detected, [facility] Coronavirus 229E Not detected Not detected, [facility] Coronavirus HKU1 Not detected Not detected, [facility] Coronavirus NL63 Not detected Not detected, [facility] Coronavirus OC43 Not detected Not detected, [facility] Bordetella Pertussis Not detected Not detected, [facility] Chlamydophila Pneumoniae Not detected Not detected, [facility] Mycoplasma Pneumoniae Not detected Not detected, [facility] Specimen Nasopharyngeal Narrative Performed At Other viruses and bacteria not targeted by [facility] this PCR panel cannot be excluded; therefore clinical correlation and follow up of serology, culture results, and other molecular studies is required. The results are not intended to be used as the sole means for clinical diagnosis or patient management decisions. This sample was tested at the [facility] Molecular Diagnostics Laboratory using the CiklumArray Respiratory Panel. It is FDA cleared and has been verified and approved by the [facility] Molecular Diagnostics Laboratory for clinical use on nasopharyngeal swab specimens. The performance of the FilmArray RP has not been established in individuals who received influenza vaccine.Recent administration of a nasal influenza vaccine may cause false positive results for Influenza A and/or Influenza B. Performing Organization Address [facility] Phone Number [facility] [address] [place] [address] [place] Sputum Culture + Gram Stain (03/20/2019 11:41 AM CDT) Result 4+ Pseudomonas aeruginosa (A) [facility] Gram Stain Result 4+ WBCs [facility] Gram Stain Result 0-5 epithelial cells [facility] Gram Stain Result No organisms seen [facility] Specimen Sputum - Expectorated Narrative Performed At 4+ Normal respiratory yenni present [facility] Organism Antibiotic Method Susceptibility Pseudomonas aeruginosa Amikacin <=8: Susc eptible Pseudomonas aeruginosa Aztreonam 4: Suscep tible Pseudomonas aeruginosa Cefepime <=4: Susc eptible Pseudomonas aeruginosa Ceftazidime <=1: Susc eptible Pseudomonas aeruginosa Ciprofloxacin <=0.5: [place] sceptible Pseudomonas aeruginosa Gentamicin <=2: Susc eptible Pseudomonas aeruginosa Imipenem 8: Resist ant Pseudomonas aeruginosa Levofloxacin <=1: Susc eptible Pseudomonas aeruginosa Meropenem <=0.5: [place] sceptible Pseudomonas aeruginosa Piperacillin <=16: Araceli ceptible Pseudomonas aeruginosa Piperacillin + Tazobactam <=8: Susceptible Pseudomonas aeruginosa Tobramycin <=2: Susc eptible Performing Organization Address [facility] Phone Number [facility] [address] [place] [address] [place] Manual Differential (03/20/2019 8:43 AM CDT) % Neutros 92 % [facility] % Lymphs 3 % [facility] % Monos 3 % [facility] % Bands 2 0 - 10 % [facility] # Neutros 30.36 (H) 1.56 - 6.13 K/ul [facility] # Lymphs 0.99 (L) 1.18 - 3.74 K/ul [facility] # Monos 0.99 (H) 0.24 - 0.36 K/uL [facility] # Bands 0.66 0.00 - 0.80 K/uL [facility] Total Counted 100 [facility] RBC Morph[facility] Normal [facility] WBC Morphology Normal [facility] Platelet Morphology Normal [facility] Artifact Present [facility] Platelet Conc Adequate [facility] Specimen Blood Narrative Performed At Received comment: [facility] User comments: Slide comments: Performing Organization Address City/State/Zipcode Phone Number [facility] [address] [place] [address] [place] Strep pneumoniae antigen (03/20/2019 8:27 AM CDT) Strep pneumoniae Presumptive negative Presumptive negative [facility] Antigen for pneumococcal for pneumococcal [facility] pneumonia - see comment pneumonia - see CENTER comment, Presumptive negative for pneumococcal meningitis - see comment Specimen Urine Narrative Performed At Presumptive negative for pneumococcal [facility] pneumonia, suggesting no current or recent pneumococcal infection. Infection due to S. pneumoniae cannot be ruled out since the antigen present in the sample may be below the detection limit of the test. Performing Organization Address City/State/Zipcode Phone Number [address] [address] [place] Legionella antigen, urine (03/20/2019 8:14 AM CDT) Legionella Urine Antigen Negative - see [facility] commentComment: Negative [facility] for L. pneumophila serogroup 1 antigen, suggesting no recent or current infection with this serogroup. Legionellosis cannot be ruled out since other serogroups and species may cause disease. Specimen Urine Performing Organization Address City/State/Zipcode Phone Number [facility] [address] [place] [address] CENTER Creatinine (03/20/2019 6:42 AM CDT) Creatinine 0.78 0.57 - 1.25 mg/dL [facility] EGFR 72Comment: ESTIMATED GFR IS mL/min/1.73 sq m [facility]ATE [facility] CLEARANCE IN PREDICTING GLOMERULAR FILTRATION RATE. ESTIMATED GFR IS NOT APPLICABLE FOR DIALYSIS PATIENTS. Specimen Blood Performing Organization Address City/State/Zipcode Phone Number [place] [phone] [place] [address] CENTER after 11/06/2018 Insurance Payer Benefit Plan / Group Subscriber ID Type Phone A ddress MEDICARE MEDICARE A B xxxxxxxxxxx Medicare MCR SUPPLEMENT/INDIVIDUAL [employer]/[facility] xxxxxxxxxxx [facility] Advance Directives For more information, please contact:[address] [phone] Code Status Date Activated Date Inactivated Comments Full Code 03/20/2019 6:18 AM 03/23/2019 4:07 PM This code status was determined by: Patient
--- OUTSIDE RECORDS SUMMARY | 2019-11-07 15:10 | XMS REPORT ---
:1945 Author Organization [employer] Care Team Providers Name Role Phone Refugio Crawford Provider Role Unavailable Allergies No Known Allergies Problems Problem Type Condition Code Onset Dates Condition Statu s Problem Shingles B02.9 Active Problem Depression with anxiety F41.8 Acti ve Problem 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 Problem Chronic obstructive pulmonary J44.9 Active disease, unspecified COPD type Problem Chronic obstructive pulmonary J44.1 Active disease with acute exacerbation Problem Age-related osteoporosis without M81.0 Active current pathological fracture Problem Fatty liver K76.0 Active Problem Seasonal allergies J30.2 Active Problem 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
--- OUTSIDE RECORDS SUMMARY | 2019-11-07 15:10 | XMS REPORT ---
:1945 Author Organization [facility] t Address [address] [place] [address] Dr. [address] [place] [id number] Care Team Providers Name Role Phone SUTARIA, S Unavailable Unavailable BANDEALI, JAMALUDDIN Unavailable Unavailable Problems Condition Condition Condition Status Onset Resolution Last Treatin g Comments Name Details Category Date Date Treatment Clinician Date Shingles Shingles Problem Active Age-related Age-related Problem Active osteoporosi osteoporosi s without s without current current pathologica pathologica l fracture l fracture Fatty liver Fatty liver Problem Active Depression Depression Problem Active with with anxiety anxiety Oxygen Oxygen Problem Active dependent dependent Chronic Chronic Problem Active obstructive obstructive pulmonary pulmonary disease, disease, unspecified unspecified COPD type COPD type Seasonal Seasonal Problem Active allergies allergies Secondary Secondary Problem Active pulmonary pulmonary arterial arterial hypertensio hypertensio n n Chronic Chronic Problem Active obstructive obstructive pulmonary pulmonary disease disease with acute with acute exacerbatio exacerbatio n n Acute on Acute on Problem Active chronic chronic respiratory respiratory failure, failure, unspecified unspecified whether whether with with hypoxia or hypoxia or hypercapnia hypercapnia Left Left Problem Active thyroid thyroid nodule nodule Allergies, Adverse Reactions, Alerts Allergy Allergy Status Severity Reaction(s) Onset Inactive Treating C omments Name Type Date Date Clinician Bactrim Adverse Active Info Not DS Reaction Available Medications Ordered Filled Start Stop Current Ordering Indication Dosage Frequency Signature Comments Components Medication Medication Date Date Medication? Clinician (SIG) Name Name Negro Tom 2019-0 Yes Refugio 2 puffs 4-17 Crawford 00:00: 00 Prolia Prolia Yes Refugio as Crawford directed Spiriva Spiriva Yes Refugio 2 puffs Respimat Respimat Crawford Nasonex Nasonex Yes Refugio 2 sprays Crawford in each nostril [place] 3 [place] 3 Yes Refugio 1 capsule Crawford ProAir HFA ProAir HFA Yes Refugio 2 puffs a s Crawford needed Albuterol Albuterol Yes Refugio 3 ml as Sulfate Sulfate Crawford needed Questran Questran Yes Refugio 1 packet Crawford mixed with water or non-carbon ated drink Xanax Xanax Yes Refugio 1 tablet Crawford Letairis Letairis Yes Refugio 1 tablet Crawford Glucosamine Glucosamine Yes Refugio 1 capsu le Crawford with a meal Vitamin D Vitamin D Yes Refugio 1 tablet Crawford Citalopram Citalopram Yes Refugio 1 tablet Hydrobromid Hydrobromid Crawford e e Celexa Celexa Yes Refugio TAKE 1 [place] TABLET BY MOUTH ONCE A DAY Claritin Claritin Yes Refugio 1 tablet Crawford Mucinex Mucinex Yes Refugio 1 tablet Maximum Maximum Crawford as needed Strength Strength Acyclovir Acyclovir Yes Refugio 1 capsule Crawford Montelukast Montelukast Yes Refugio TAKE 1 Sodium Sodium Crawford TABLET BY MOUTH ONCE A DAY IN THE EVENING Montelukast Montelukast Yes Refugio TAKE 1 Sodium Sodium Crawford TABLET BY MOUTH ONCE A DAY IN THE EVENING Symbicort Symbicort Yes Refugio 2 puffs Crawford Immunizations Ordered Immunization Name Filled Immunization Name Date Sta tus Comments Prevnar 13 -Pneumonia Prevnar 13 -Pneumonia 2019-05-11 Completed Vaccine Vaccine 00:00:00 Encounters Start End Encounter Admission Attending Care Care Encounter Date/Time Date/Time Type Type Clinicians Facility Department ID 2019-10-14 2019-10-14 [id number] 09:59:00 09:59:00 [facility] 2019-09-29 2019-09-29 [facility] [id number] 14:30:00 14:30:00 [facility] 2019-09-22 2019-09-22 [id number] 16:54:00 16:54:00 [facility] 2019-08-16 2019-08-16 [id number] 09:30:00 09:30:00 [facility] 2019-07-21 2019-07-21 [facility] [id number] 08:00:00 08:00:00 [facility] 2019-06-30 2019-06-30 [facility] [id number] 13:00:00 13:00:00 [place] [facility] 2019-06-27 2019-06-27 [id number] 09:57:00 09:57:00 [place] [facility] 2019-05-11 2019-05-11 [facility] [id number] 11:15:00 11:15:00 [place] [facility] 2019-04-11 2019-04-11 [facility] [id number] 13:15:00 13:15:00 [place] [facility] 2019-03-28 2019-03-28 [facility] [id number] 14:30:00 14:30:00 [place] [facility] 2019-03-08 2019-03-08 [facility] [id number] 10:45:00 10:45:00 [place] [facility] 2019-02-18 2019-02-18 [facility] [id number] 10:42:00 10:42:00 [place] [facility] 2019-01-25 2019-01-25 [facility] [id number] 10:00:00 10:00:00 [place] [facility] 2019-01-05 2019-01-05 [id number] 11:44:00 11:44:00 [place] [facility] 2018-10-27 2018-10-27 [id number] 10:15:00 10:15:00 [place] [facility] 2018-09-13 2018-09-13 [facility] [id number] 10:00:00 10:00:00 [place] [facility] 2018-08-11 2018-08-11 [facility] [id number] 10:00:00 10:00:00 [place] [facility] 2018-07-19 2018-07-19 [id number] 09:15:00 09:15:00 [place] [facility] 2018-06-07 2018-06-07 [id number] 08:00:00 08:00:00 [facility] 2018-02-26 2018-02-26 [facility] [id number] 09:30:00 09:30:00 [facility] 2018-01-08 2018-01-08 [facility] [id number] 10:30:00 10:30:00 [facility] 2017-12-09 2017-12-09 [facility] [id number] 11:06:00 11:06:00 [facility] 2017-12-09 2017-12-09 [facility] [id number] 10:15:00 10:15:00 [facility] 2017-11-18 2017-11-18 [facility] [id number] 10:32:00 10:32:00 [facility] 2017-11-18 2017-11-18 [facility] [id number] 09:00:00 09:00:00 [facility] 2017-09-30 2017-09-30 [facility] [id number] 10:30:00 10:30:00 [facility] Results Test Description Test Time Test Comments Text Results Atomic Results Result Comments SPUTUM CULTURE + GRAM STAIN 2019-03-23 12:13:00 Test Item Value Reference Range Comments CULTURE (BEAKER) (test PSEUDOMONAS 4+ Pseudo monas code = 1095) AERUGINOSA aeruginosa Amikacin (test code = Susceptible 0-16 , 1) Resistant <0 or >16 Aztreonam (test code = Susceptible 0-8 , 32) Resistant <0 or >8 Cefepime (test code = Susceptible 0-8 , 51) Resistant <0 or >8 Ceftazidime (test code Susceptible 0-8 , = 27) Resistant <0 or >8 Ciprofloxacin (test Susceptible 0-0.5 , code = 7) Resistant <0 or >.5 Gentamicin (test code = Susceptible 0-4 , 18) Resistant <0 or >4 Imipenem (test code = Susceptible 0-2 , 19) Resistant <0 or >2 Levofloxacin (test code Susceptible 0-1 , = 22) Resistant <0 or >1 Meropenem (test code = Susceptible 0-2 , 34) Resistant <0 or >2 Piperacillin (test code Susceptible 0-16 , = 24) Resistant <0 or >16 Piperacillin + Susceptible 0-16 , Tazobactam (test code = Resistant <0 or >16 29) Tobramycin (test code = Susceptible 0-4 , 25) Resistant <0 or >4 GRAM STAIN RESULT 4+ WBCs (BEAKER) (test code = 1123) GRAM STAIN RESULT 0-5 epithelial cells (BEAKER) (test code = 597128) GRAM STAIN RESULT No organisms seen (BEAKER) (test code = 640988) 4+ Normal respiratory yenni presentVANCOMYCIN LEVEL, [id number] 09:25:00 Test Item Value Reference Range Comments VANCOMYCIN TROUGH (BEAKER) (test code = 522) 11.9 ug/mL 10. 0-20.0 Please draw 30 min prior to scheduled dose.If vancomycin trough level > 20 mcg/mL, hold next vancomycin dose, and contact MD and pharmacist.CBC W/PLT COUNT & AUTO [id number] 06:38:00 Test Item Value Reference Range Comments WHITE BLOOD CELL COUNT (BEAKER) (test code = 12.8 K/ L 3.5 -10.5 775) RED BLOOD CELL COUNT (BEAKER) (test code = 761) 3.65 M/ L 3.93-5.22 HEMOGLOBIN (BEAKER) (test code = 410) 11.0 GM/DL 11.2-15.7 HEMATOCRIT (BEAKER) (test code = 411) 34.0 % 34.1-44.9 MEAN CORPUSCULAR VOLUME (BEAKER) (test code = 93.2 fL 79 .4-94.8 753) MEAN CORPUSCULAR HEMOGLOBIN (BEAKER) (test code 30.1 pg 25.6-32.2 = 751) MEAN CORPUSCULAR HEMOGLOBIN CONC (BEAKER) (test 32.4 GM/DL 32.2-35.5 code = 752) RED CELL DISTRIBUTION WIDTH (BEAKER) (test code 14.2 % 11.7-14.4 = 412) PLATELET COUNT (BEAKER) (test code = 756) 253 K/CU MM 150-45 0 MEAN PLATELET VOLUME (BEAKER) (test code = 754) 9.6 fL 9.4-12.3 NUCLEATED RED BLOOD CELLS (BEAKER) (test code = 0 /100 WBC 0-0 413) NEUTROPHILS RELATIVE PERCENT (BEAKER) (test code 68 % = 429) LYMPHOCYTES RELATIVE PERCENT (BEAKER) (test code 21 % = 430) MONOCYTES RELATIVE PERCENT (BEAKER) (test code = 10 % 431) EOSINOPHILS RELATIVE PERCENT (BEAKER) (test code 0 % = 432) BASOPHILS RELATIVE PERCENT (BEAKER) (test code = 0 % 437) NEUTROPHILS ABSOLUTE COUNT (BEAKER) (test code = 8.68 K/ L 1.56-6.13 670) LYMPHOCYTES ABSOLUTE COUNT (BEAKER) (test code = 2.66 K/ L 1.18-3.74 414) MONOCYTES ABSOLUTE COUNT (BEAKER) (test code = 1.33 K/ L 0 .24-0.36 415) EOSINOPHILS ABSOLUTE COUNT (BEAKER) (test code = 0.04 K/ L 0.04-0.36 416) BASOPHILS ABSOLUTE COUNT (BEAKER) (test code = 0.01 K/ L 0 .01-0.08 417) IMMATURE GRANULOCYTES-RELATIVE PERCENT (BEAKER) 1 % 0-1 (test code = 2801) BASIC METABOLIC [id number] 05:44:00 Test Item Value Reference Range Comments SODIUM (BEAKER) (test 139 meq/L 136-145 code = 381) POTASSIUM (BEAKER) (test 3.8 meq/L 3.5-5.1 code = 379) CHLORIDE (BEAKER) (test 107 meq/L 98-107 code = 382) CO2 (BEAKER) (test code = 28 meq/L 22-29 355) BLOOD UREA NITROGEN 14 mg/dL 7-21 (BEAKER) (test code = 354) CREATININE (BEAKER) (test 0.65 mg/dL 0.57-1.25 code = 358) GLUCOSE RANDOM (BEAKER) 97 mg/dL 70-105 (test code = 652) CALCIUM (BEAKER) (test 8.5 mg/dL 8.4-10.2 code = 697) EGFR (BEAKER) (test code 89 mL/min/1.73 sq m EST IMATED GFR IS NOT = 1092) ACCURATE CREA TININE CLEARANCE IN PRE DICTING GLOMERULAR FILTR ATION RATE. ESTIMATED GFR IS NOT APPLICABLE F OR DIALYSIS PATIENT S. BASIC METABOLIC [id number] 05:45:00 Test Item Value Reference Range Comments SODIUM (BEAKER) (test 139 meq/L 136-145 code = 381) POTASSIUM (BEAKER) (test 4.5 meq/L 3.5-5.1 code = 379) CHLORIDE (BEAKER) (test 110 meq/L 98-107 code = 382) CO2 (BEAKER) (test code = 25 meq/L 22-29 355) BLOOD UREA NITROGEN 14 mg/dL 7-21 (BEAKER) (test code = 354) CREATININE (BEAKER) (test 0.66 mg/dL 0.57-1.25 code = 358) GLUCOSE RANDOM (BEAKER) 155 mg/dL 70-105 (test code = 652) CALCIUM (BEAKER) (test 8.2 mg/dL 8.4-10.2 code = 697) EGFR (BEAKER) (test code 87 mL/min/1.73 sq m EST IMATED GFR IS NOT = 1092) ACCURATE CREA TININE CLEARANCE IN PRE DICTING GLOMERULAR FILTR ATION RATE. ESTIMATED GFR IS NOT APPLICABLE F OR DIALYSIS PATIENT S. CBC W/PLT COUNT & AUTO [id number] 05:39:00 Test Item Value Reference Range Comments WHITE BLOOD CELL COUNT (BEAKER) (test code = 15.0 K/ L 3.5 -10.5 775) RED BLOOD CELL COUNT (BEAKER) (test code = 761) 3.63 M/ L 3.93-5.22 HEMOGLOBIN (BEAKER) (test code = 410) 10.7 GM/DL 11.2-15.7 HEMATOCRIT (BEAKER) (test code = 411) 33.8 % 34.1-44.9 MEAN CORPUSCULAR VOLUME (BEAKER) (test code = 93.1 fL 79 .4-94.8 753) MEAN CORPUSCULAR HEMOGLOBIN (BEAKER) (test code 29.5 pg 25.6-32.2 = 751) MEAN CORPUSCULAR HEMOGLOBIN CONC (BEAKER) (test 31.7 GM/DL 32.2-35.5 code = 752) RED CELL DISTRIBUTION WIDTH (BEAKER) (test code 14.3 % 11.7-14.4 = 412) PLATELET COUNT (BEAKER) (test code = 756) 240 K/CU MM 150-45 0 MEAN PLATELET VOLUME (BEAKER) (test code = 754) 9.5 fL 9.4-12.3 NUCLEATED RED BLOOD CELLS (BEAKER) (test code = 0 /100 WBC 0-0 413) NEUTROPHILS RELATIVE PERCENT (BEAKER) (test code 87 % = 429) LYMPHOCYTES RELATIVE PERCENT (BEAKER) (test code 8 % = 430) MONOCYTES RELATIVE PERCENT (BEAKER) (test code = 4 % 431) EOSINOPHILS RELATIVE PERCENT (BEAKER) (test code 0 % = 432) BASOPHILS RELATIVE PERCENT (BEAKER) (test code = 0 % 437) NEUTROPHILS ABSOLUTE COUNT (BEAKER) (test code = 13.02 K/ L 1.56-6.13 670) LYMPHOCYTES ABSOLUTE COUNT (BEAKER) (test code = 1.25 K/ L 1.18-3.74 414) MONOCYTES ABSOLUTE COUNT (BEAKER) (test code = 0.65 K/ L 0 .24-0.36 415) EOSINOPHILS ABSOLUTE COUNT (BEAKER) (test code = 0.00 K/ L 0.04-0.36 416) BASOPHILS ABSOLUTE COUNT (BEAKER) (test code = 0.01 K/ L 0 .01-0.08 417) IMMATURE GRANULOCYTES-RELATIVE PERCENT (BEAKER) 1 % 0-1 (test code = 2801) RESPIRATORY PANEL [id number] 20:29:00 Test Item Value Reference Range Comments HUMAN METAPNEUMOVIRUS (BEAKER) (test Not detected Not detecte d, Equivocal code = 2683) RHINOVIRUS (BEAKER) (test code = 2684) Not detected Not detec joanna, Equivocal INFLUENZA A (BEAKER) (test code = 2685) Not detected Not dete cted, Equivocal INFLUENZA A (NO SUBTYPE) (test code = 3606) INFLUENZA A SUBTYPE H1 (BEAKER) (test code = 2686) INFLUENZA A SUBTYPE H3 (BEAKER) (test code = 2687) INFLUENZA A SUBTYPE H1-2009 (BEAKER) (test code = 3198) INFLUENZA B (BEAKER) (test code = 2688) Not detected Not dete cted, Equivocal RESPIRATORY SYNCYTIAL VIRUS (BEAKER) Not detected Not detecte d, Equivocal (test code = 3199) PARAINFLUENZA VIRUS 1 (BEAKER) (test Not detected Not detecte d, Equivocal code = 2691) PARAINFLUENZA VIRUS 2 (BEAKER) (test Not detected Not detecte d, Equivocal code = 2692) PARAINFLUENZA VIRUS 3 (BEAKER) (test Not detected Not detecte d, Equivocal code = 2693) PARAINFLUENZA VIRUS 4 (BEAKER) (test Not detected Not detecte d, Equivocal code = 3200) ADENOVIRUS (BEAKER) (test code = 2694) Not detected Not detec joanna, Equivocal CORONAVIRUS 229E (BEAKER) (test code = Not detected Not detec joanna, Equivocal 3201) CORONAVIRUS HKU1 (BEAKER) (test code = Not detected Not detec joanna, Equivocal 3202) CORONAVIRUS NL63 (BEAKER) (test code = Not detected Not detec joanna, Equivocal 3203) CORONAVIRUS OC43 (BEAKER) (test code = Not detected Not detec joanna, Equivocal 3204) BORDETELLA PERTUSSIS (BEAKER) (test Not detected Not detected , Equivocal code = 3205) CHLAMYDOPHILA PNEUMONIAE (BEAKER) (test Not detected Not dete cted, Equivocal code = 3206) MYCOPLASMA PNEUMONIAE (BEAKER) (test Not detected Not detecte d, Equivocal code = 3207) Other viruses and bacteria not targeted by this PCR panel cannot be excluded; therefore clinical correlation and follow up of serology, culture results, and other molecular studies is required. The results are not intended to be used as the sole means for clinical diagnosis or patient management decisions. This sample was tested at the [facility] using the CallAppArray Respiratory Panel. It is FDA cleared and has been verified and approved by the [facility] for clinical use on nasopharyngeal swab specimens.The performance of the FilmArrayRP has not been established in individuals who received influenza vaccine. Recent administration ofa nasal influenza vaccine may cause false positive results for Influenza A and/orInfluenza B.VANCOMYCIN LEVEL, [id number] 10:07:00 Test Item Value Reference Range Comments VANCOMYCIN TROUGH (BEAKER) (test code = 522) 10.0 ug/mL 10. 0-20.0 Please draw 30 min prior to scheduled dose.If vancomycin trough level > 20 mcg/mL, hold next vancomycin dose, and contact MD and pharmacist.BASIC METABOLIC [id number] 07:57:00 Test Item Value Reference Range Comments SODIUM (BEAKER) (test 134 meq/L 136-145 code = 381) POTASSIUM (BEAKER) (test 4.3 meq/L 3.5-5.1 Specime n slightly code = 379) hemolyzed CHLORIDE (BEAKER) (test 102 meq/L 98-107 code = 382) CO2 (BEAKER) (test code = 25 meq/L 22-29 355) BLOOD UREA NITROGEN 17 mg/dL 7-21 (BEAKER) (test code = 354) CREATININE (BEAKER) (test 0.72 mg/dL 0.57-1.25 Specim en slightly code = 358) hemolyzed GLUCOSE RANDOM (BEAKER) 137 mg/dL 70-105 (test code = 652) CALCIUM (BEAKER) (test 8.6 mg/dL 8.4-10.2 code = 697) EGFR (BEAKER) (test code 79 mL/min/1.73 sq m EST IMATED GFR IS NOT = 1092) ACCURATE CREA TININE CLEARANCE IN PRE DICTING GLOMERULAR FILTR ATION RATE. ESTIMATED GFR IS NOT APPLICABLE F OR DIALYSIS PATIENT S. CBC W/PLT COUNT & AUTO [id number] 07:43:00 Test Item Value Reference Range Comments WHITE BLOOD CELL COUNT (BEAKER) (test code = 22.0 K/ L 3.5 -10.5 775) RED BLOOD CELL COUNT (BEAKER) (test code = 761) 4.00 M/ L 3.93-5.22 HEMOGLOBIN (BEAKER) (test code = 410) 12.0 GM/DL 11.2-15.7 HEMATOCRIT (BEAKER) (test code = 411) 37.6 % 34.1-44.9 MEAN CORPUSCULAR VOLUME (BEAKER) (test code = 94.0 fL 79 .4-94.8 753) MEAN CORPUSCULAR HEMOGLOBIN (BEAKER) (test code 30.0 pg 25.6-32.2 = 751) MEAN CORPUSCULAR HEMOGLOBIN CONC (BEAKER) (test 31.9 GM/DL 32.2-35.5 code = 752) RED CELL DISTRIBUTION WIDTH (BEAKER) (test code 14.4 % 11.7-14.4 = 412) PLATELET COUNT (BEAKER) (test code = 756) 257 K/CU MM 150-45 0 MEAN PLATELET VOLUME (BEAKER) (test code = 754) 9.0 fL 9.4-12.3 NUCLEATED RED BLOOD CELLS (BEAKER) (test code = 0 /100 WBC 0-0 413) NEUTROPHILS RELATIVE PERCENT (BEAKER) (test code 88 % = 429) LYMPHOCYTES RELATIVE PERCENT (BEAKER) (test code 6 % = 430) MONOCYTES RELATIVE PERCENT (BEAKER) (test code = 5 % 431) EOSINOPHILS RELATIVE PERCENT (BEAKER) (test code 0 % = 432) BASOPHILS RELATIVE PERCENT (BEAKER) (test code = 0 % 437) NEUTROPHILS ABSOLUTE COUNT (BEAKER) (test code = 19.29 K/ L 1.56-6.13 670) LYMPHOCYTES ABSOLUTE COUNT (BEAKER) (test code = 1.40 K/ L 1.18-3.74 414) MONOCYTES ABSOLUTE COUNT (BEAKER) (test code = 1.06 K/ L 0 .24-0.36 415) EOSINOPHILS ABSOLUTE COUNT (BEAKER) (test code = 0.00 K/ L 0.04-0.36 416) BASOPHILS ABSOLUTE COUNT (BEAKER) (test code = 0.02 K/ L 0 .01-0.08 417) IMMATURE GRANULOCYTES-RELATIVE PERCENT (BEAKER) 1 % 0-1 (test code = 2801) CBC W/PLT COUNT & AUTO [id number] 10:21:00 Test Item Value Reference Range Comments WHITE BLOOD CELL COUNT (BEAKER) (test code = 33.0 K/ L 3.5 -10.5 775) RED BLOOD CELL COUNT (BEAKER) (test code = 761) 4.03 M/ L 3.93-5.22 HEMOGLOBIN (BEAKER) (test code = 410) 12.3 GM/DL 11.2-15.7 HEMATOCRIT (BEAKER) (test code = 411) 37.4 % 34.1-44.9 MEAN CORPUSCULAR VOLUME (BEAKER) (test code = 92.8 fL 79 .4-94.8 753) MEAN CORPUSCULAR HEMOGLOBIN (BEAKER) (test code 30.5 pg 25.6-32.2 = 751) MEAN CORPUSCULAR HEMOGLOBIN CONC (BEAKER) (test 32.9 GM/DL 32.2-35.5 code = 752) RED CELL DISTRIBUTION WIDTH (BEAKER) (test code 14.3 % 11.7-14.4 = 412) PLATELET COUNT (BEAKER) (test code = 756) 254 K/CU MM 150-45 0 MEAN PLATELET VOLUME (BEAKER) (test code = 754) 9.0 fL 9.4-12.3 NUCLEATED RED BLOOD CELLS (BEAKER) (test code = 0 /100 WBC 0-0 413) (CELLAVISION MANUAL DIFF)2019-03-20 10:21:00 Test Item Value Reference Range Comments NEUTROPHILS - REL (CELLAVISION)(BEAKER) (test 92 % code = 2816) LYMPHOCYTES - REL (CELLAVISION)(BEAKER) (test 3 % code = 2817) MONOCYTES - REL (CELLAVISION)(BEAKER) (test code 3 % = 2818) BANDS - REL (CELLAVISION)(BEAKER) (test code = 2 % 0 -10 2826) NEUTROPHILS - ABS (CELLAVISION)(BEAKER) (test 30.36 K/ul 1. 56-6.13 code = 2830) LYMPHOCYTES - ABS (CELLAVISION)(BEAKER) (test 0.99 K/ul 1. 18-3.74 code = 2831) MONOCYTES - ABS (CELLAVISION)(BEAKER) (test code 0.99 K/uL 0.24-0.36 = 2832) BANDS - ABS (CELLAVISION)(BEAKER) (test code = 0.66 K/uL 0 .00-0.80 2840) TOTAL COUNTED (BEAKER) (test code = 1351) 100 RBC MORPHOLOGY (BEAKER) (test code = 762) Normal WBC MORPHOLOGY (BEAKER) (test code = 487) Normal PLT MORPHOLOGY (BEAKER) (test code = 486) Normal ARTIFACT (CELLAVISION)(BEAKER) (test code = 3432) Present PLATELET CONCENTRATION (CELLAVISION)(BEAKER) Adequate (test code = 3438) Received comment: User comments: Slide comments:STREP PNEUMONIAE ANTIGEN 2019-03-20 09:40:00 Test Item Value Reference Range Comments STREP PNEUMONIAE ANTIGEN Presumptive negative for Presumptive ne gative for (BEAKER) (test code = pneumococcal pneumonia - pneumococcal pneu monia - 1615) see comment see commen Presumptive negative for pneumococcal pneumonia, suggesting no current or recent pneumococcal infection. Infection due to S. pneumoniae cannot be ruled out since the antigen present in the sample may be below the detection limit of the test. LEGIONELLA ANTIGEN, [id number] 09:40:00 Test Item Value Reference Range Comments L. PNEUMOPHILA SEROGP 1 Negative - see Negative for L. UR AG (BEAKER) (test comment pneumophila serogroup 1 code = 1156) antigen, suggest ing no recent or curren t infection with t his serogroup. Legio nellosis cannot be ruled out since other serogroups and species may caus e disease. BASIC METABOLIC [id number] 08:58:00 Test Item Value Reference Range Comments SODIUM (BEAKER) (test 138 meq/L 136-145 code = 381) POTASSIUM (BEAKER) (test 4.8 meq/L 3.5-5.1 code = 379) CHLORIDE (BEAKER) (test 105 meq/L 98-107 code = 382) CO2 (BEAKER) (test code = 24 meq/L 22-29 355) BLOOD UREA NITROGEN 15 mg/dL 7-21 (BEAKER) (test code = 354) CREATININE (BEAKER) (test 0.78 mg/dL 0.57-1.25 code = 358) GLUCOSE RANDOM (BEAKER) 177 mg/dL 70-105 (test code = 652) CALCIUM (BEAKER) (test 8.5 mg/dL 8.4-10.2 code = 697) EGFR (BEAKER) (test code 72 mL/min/1.73 sq m EST IMATED GFR IS NOT = 1092) ACCURATE CREA TININE CLEARANCE IN PRE DICTING GLOMERULAR FILTR ATION RATE. ESTIMATED GFR IS NOT APPLICABLE F OR DIALYSIS PATIENT S. [id number] 08:58:00 Test Item Value Reference Range Comments CREATININE (BEAKER) (test 0.78 mg/dL 0.57-1.25 code = 358) EGFR (BEAKER) (test code 72 mL/min/1.73 sq m EST IMATED GFR IS NOT = 1092) ACCURATE CREA TININE CLEARANCE IN PRE DICTING GLOMERULAR FILTR ATION RATE. ESTIMATED GFR IS NOT APPLICABLE F OR DIALYSIS PATIENT S. BASIC METABOLIC [id number] 07:10:00 Test Item Value Reference Range Comments SODIUM (BEAKER) (test 139 meq/L 136-145 code = 381) POTASSIUM (BEAKER) (test 3.5 meq/L 3.5-5.1 code = 379) CHLORIDE (BEAKER) (test 103 meq/L 98-107 code = 382) CO2 (BEAKER) (test code = 28 meq/L 22-29 355) BLOOD UREA NITROGEN 15 mg/dL 7-21 (BEAKER) (test code = 354) CREATININE (BEAKER) (test 0.73 mg/dL 0.57-1.25 code = 358) GLUCOSE RANDOM (BEAKER) 89 mg/dL 70-105 (test code = 652) CALCIUM (BEAKER) (test 9.7 mg/dL 8.4-10.2 code = 697) EGFR (BEAKER) (test code 78 mL/min/1.73 sq m EST IMATED GFR IS NOT = 1092) ACCURATE CREA TININE CLEARANCE IN PRE DICTING GLOMERULAR FILTR ATION RATE. ESTIMATED GFR IS NOT APPLICABLE F OR DIALYSIS PATIENT S. PROTHROMBIN [id number] 07:01:00 Test Item Value Reference Range Comments PROTIME (BEAKER) (test code = 759) 12.9 seconds 11.7-14.7 INR (BEAKER) (test code = 370) 1.0 <=5.9 RECOMMENDED COUMADIN/WARFARIN INR THERAPY RANGESSTANDARD DOSE: 2.0 - 3.0 Includes: PROPHYLAXIS forvenous thrombosis, systemic embolization; TREATMENT for venous thrombosis and/or pulmonary embolus.HIGH RISK: Target INR is 2.5-3.5 for patients with mechanical heart valves.CBC W/PLT COUNT & AUTO DIFFERENTIAL 2018-06-11 06:45:00 Test Item Value Reference Range Comments WHITE BLOOD CELL COUNT (BEAKER) (test code = 12.2 K/ L 3.5 -10.5 775) RED BLOOD CELL COUNT (BEAKER) (test code = 761) 4.61 M/ L 3.93-5.22 HEMOGLOBIN (BEAKER) (test code = 410) 14.2 GM/DL 11.2-15.7 HEMATOCRIT (BEAKER) (test code = 411) 43.5 % 34.1-44.9 MEAN CORPUSCULAR VOLUME (BEAKER) (test code = 94.4 fL 79 .4-94.8 753) MEAN CORPUSCULAR HEMOGLOBIN (BEAKER) (test code 30.8 pg 25.6-32.2 = 751) MEAN CORPUSCULAR HEMOGLOBIN CONC (BEAKER) (test 32.6 GM/DL 32.2-35.5 code = 752) RED CELL DISTRIBUTION WIDTH (BEAKER) (test code 14.0 % 11.7-14.4 = 412) PLATELET COUNT (BEAKER) (test code = 756) 356 K/CU MM 150-45 0 MEAN PLATELET VOLUME (BEAKER) (test code = 754) 8.9 fL 9.4-12.3 NUCLEATED RED BLOOD CELLS (BEAKER) (test code = 0 /100 WBC 0-0 413) NEUTROPHILS RELATIVE PERCENT (BEAKER) (test code 64 % = 429) LYMPHOCYTES RELATIVE PERCENT (BEAKER) (test code 22 % = 430) MONOCYTES RELATIVE PERCENT (BEAKER) (test code = 11 % 431) EOSINOPHILS RELATIVE PERCENT (BEAKER) (test code 0 % = 432) BASOPHILS RELATIVE PERCENT (BEAKER) (test code = 1 % 437) NEUTROPHILS ABSOLUTE COUNT (BEAKER) (test code = 7.83 K/ L 1.56-6.13 670) LYMPHOCYTES ABSOLUTE COUNT (BEAKER) (test code = 2.73 K/ L 1.18-3.74 414) MONOCYTES ABSOLUTE COUNT (BEAKER) (test code = 1.38 K/ L 0 .24-0.36 415) EOSINOPHILS ABSOLUTE COUNT (BEAKER) (test code = 0.05 K/ L 0.04-0.36 416) BASOPHILS ABSOLUTE COUNT (BEAKER) (test code = 0.08 K/ L 0 .01-0.08 417) IMMATURE GRANULOCYTES-RELATIVE PERCENT (BEAKER) 1 % 0-1 (test code = 2801)
--- OUTSIDE RECORDS SUMMARY | 2019-11-07 15:11 | XMS REPORT ---
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 Assessment Chronic obstructive pulmonary J44.9 Active disease, unspecified COPD type Assessment Age-related osteoporosis without M81.0 Active current pathological fracture Assessment Seasonal allergies J30.2 Active Assessment 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 Assessment Fatty liver K76.0 Active Assessment Depression with anxiety F41.8 Acti ve Medications Medication Code Code Instructions Start End Status Dosage System Date Date Prolia [facility] 02772502468 60 MG/ML Active as Subcutaneous directed Spiriva ND 23699338930 2.5 microgram Active 2 puff s Respimat Inhaled Once a day Nasonex ND 47775214741 50 MCG/ACT Active 2 sprays Nasally Once a in each day nostril [place] 3 [facility] [address] MG Active 1 ca psule Orally Once a day ProAir HFA [facility] 78015793826 108 (90 Base) Active INH SIOBHAN TWO MCG/ACT PUFFS BY MOUTH EVERY 6 HOURS NEEDED Albuterol ND 06840179743 (2.5 MG/3ML) Active 3 ml as Sulfate 0.083% needed Inhalation Three times a day Questran [facility] 97582872253 4 GM Orally Active 1 packe t Twice a day mixed with water or non-carbon ated drink Xanax [facility] 44537568142 0.5 MG Orally Active 1 tabl et TID PRN severe anxiety Montelukast [facility] 33150037458 10 MG once a Active TA KE 1 Sodium day TABLET BY MOUTH ONCE A DAY IN THE EVENING Letairis [facility] 11891367046 10 MG Orally Active 1 tabl et Once a day Revatio [facility] 16284959732 20 MG Orally May 11, Inactive 0.5 ta blet Two times a day 2018 Glucosamine [facility] 06493709544 500 MG Orally Active 1 capsule Three times a with a day meal Acyclovir [facility] 15543758123 200 MG Orally Active 1 ca psule Twice a day ProAir HFA [facility] 67736572514 108 (90 Base) Active 2 p uffs as MCG/ACT needed Inhalation every 6 hrs Vitamin D [facility] 37398968292 2000 UNIT Active 1 tablet Orally Once a day Citalopram [facility] 29500079763 40 MG Orally Active 1 ta blet Hydrobromide Once a day Celexa [facility] 87622752973 40 MG Orally Active 1 table t Once a day Symbicort [facility] 86122796172 80-4.5 MCG/ACT Active 2 p uffs Inhalation Twice a day Claritin [facility] 06142932030 10 MG Orally Active 1 tabl et Once a day Mucinex Maximum [facility] 50792004938 1200 MG Orally Activ e 1 tablet Strength every 12 hrs as needed Results No Known Results Immunizations Vaccine Administration Date Prevnar 13 -Pneumonia Vaccine May 11, 2019 Summary Purpose eClinicalWorks Submission
--- OUTSIDE RECORDS SUMMARY | 2019-11-07 15:11 | XMS REPORT ---
:1945 Author Organization eClinicalWorks Care Team Providers Name Role Phone Refugio Crawford Provider Role Unavailable Allergies No Known Allergies Problems Problem Type Condition Code Onset Dates Condition Statu s Problem Shingles B02.9 Active Problem Age-related osteoporosis without M81.0 Active current pathological fracture Problem Fatty liver K76.0 Active Assessment Chronic obstructive pulmonary J44.9 Active disease, unspecified COPD type Problem Depression with anxiety F41.8 Acti ve Problem Acute on chronic respiratory J96.20 Active failure, unspecified whether with hypoxia or hypercapnia Problem Chronic obstructive pulmonary J44.1 Active disease with acute exacerbation Problem Left thyroid nodule E04.1 Active Problem Seasonal allergies J30.2 Active Problem 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 Problem 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 Problem Chronic obstructive pulmonary J44.9 Active disease, unspecified COPD type Medications Medication Code Code Instructions Start End Status Dosage System Date Date Questran [facility] 45272827963 4 GM Orally Active 1 packe t Twice a day mixed with water or non-carbon ated drink Montelukast [facility] 10659488057 10 MG once a Active TA KE 1 Sodium day TABLET BY MOUTH ONCE A DAY IN THE EVENING Symbicort [facility] 93590211577 160-4.5 MCG/ACT Inactive 2 puffs Inhalation Twice a day Celexa [facility] 49053090143 40 MG Orally Active 1 table t Once a day Xanax [facility] 15973964603 0.5 MG Orally Active 1 tabl et TID PRN severe anxiety Montelukast [facility] 56614858395 10 MG Active TAKE 1 Sodium TABLET BY MOUTH ONCE A DAY IN THE EVENING Nasonex [facility] 06804649453 50 MCG/ACT Active 2 sprays Nasally Once a in each day nostril ProAir HFA [facility] 16658495605 108 (90 Base) Active INH SIOBHAN TWO MCG/ACT PUFFS BY MOUTH EVERY 6 HOURS NEEDED Vitamin D [facility] 99918335114 2000 UNIT Active 1 tablet Orally Once a day Acyclovir [facility] 63340932968 200 MG Orally Active 1 ca psule Twice a day Claritin ND 20830283916 10 MG Orally Active 1 tabl et Once a day Albuterol ND 07083860237 (2.5 MG/3ML) Active 3 ml as Sulfate 0.083% needed Inhalation Three times a day Glucosamine ND 91901679334 500 MG Orally Active 1 capsule Three times a with a day meal Mucinex Maximum ND 73548581444 1200 MG Orally Activ e 1 tablet Strength every 12 hrs as needed Spiriva [facility] 31451451918 2.5 microgram Active 2 puff s Respimat Inhaled Once a day Prolia [facility] 68296771199 60 MG/ML Active as Subcutaneous directed Dulera ND 17380676474 100-5 MCG/ACT September Active 2 puff s Inhalation 2019 Twice a day [place] 3 [facility] [address] MG Active 1 ca psule Orally Once a day Celexa ND 31288633383 40 MG Active TAKE 1 TABLET BY MOUTH ONCE A DAY ProAir HFA [facility] 92326771781 108 (90 Base) Active 2 p uffs as MCG/ACT needed Inhalation every 6 hrs Letairis [facility] 17438261833 10 MG Orally Active 1 tabl et Once a day Citalopram ND 54860160742 40 MG Orally Active 1 ta blet Hydrobromide Once a day Results No Known Results Summary Purpose eClinicalWorks Submission
--- OUTSIDE RECORDS SUMMARY | 2019-11-07 15:11 | XMS REPORT ---
[...] fracture Problem Fatty liver K76.0 Active Assessment Depression with anxiety F41.8 Acti ve Problem Depression with anxiety F41.8 Acti ve [...] End Status Dosage System Date Date Questran [facility] 38612946366 4 GM Orally Active 1 packe t Twice a day mixed with water or non-carbona joanna drink Citalopram ND 46244725042 40 MG Orally Active 1 ta blet Hydrobromide Once a day Glucosamine ND 48878491117 500 MG Orally Active 1 capsule Three times a with a yris l day Montelukast [facility] 41345901627 10 MG Active TAKE 1 Sodium TABLET BY MOUTH ONCE A DAY IN THE EVENING ProAir HFA [facility] 36755592516 108 (90 Base) Active INH SIOBHAN TWO MCG/ACT PUFFS BY MOUTH EVERY 6 HOURS NEEDED Claritin [facility] 55523574265 10 MG Orally Active 1 tabl et Once a day Symbicort ND 62043299074 80-4.5 MCG/ACT Active 2 p uffs Inhalation Twice a day Letairis [facility] 82843575340 10 MG Orally Active 1 tabl et Once a day Xanax ND 67608480496 0.5 MG Orally Active 1 tabl et as three times a needed for day severe anxiety Celexa [facility] 31432903823 40 MG Active TAKE 1 TABLET BY MOUTH ONCE A DAY Acyclovir ND 23650889544 200 MG Orally Active 1 ca psule Twice a day Albuterol ND 27408433869 (2.5 MG/3ML) Active 3 ml as Sulfate 0.083% needed Inhalation Three times a day Vitamin D [facility] 09190330036 2000 UNIT Active 1 tablet Orally Once a day Prolia [facility] 92924832304 60 MG/ML Active as directed Subcutaneous ProAir HFA [facility] 29705234661 108 (90 Base) Active 2 p uffs as MCG/ACT needed Inhalation every 6 hrs Nasonex [facility] 32235404122 50 MCG/ACT Active 2 sprays in Nasally Once a each day nostril [place] 3 [facility] [address] MG Active 1 ca psule Orally Once a day Mucinex Maximum [facility] 23372024261 1200 MG Orally Activ e 1 tablet as Strength every 12 hrs needed Spiriva Respimat [facility] 27944183818 2.5 microgram Activ e 2 puffs Inhaled Once a day Results No Known Results Summary Purpose eClinicalWorks Submission
--- OUTSIDE RECORDS SUMMARY | 2019-11-07 15:11 | XMS REPORT ---
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 Problem Chronic obstructive pulmonary J44.9 Active disease, unspecified COPD type Assessment Acute on chronic respiratory J96.20 Active failure, unspecified whether with hypoxia or hypercapnia Assessment Acute bronchitis due to rhinovirus J20.6 Active Assessment Left thyroid nodule E04.1 Active Problem Depression with anxiety F41.8 Acti ve Medications Medication Code Code Instructions Start End Status Dosage System Date Date Vitamin D [facility] 23416553423 2000 UNIT Active 1 tablet Orally Once a day Xanax [facility] 40544575027 0.5 MG Orally Active 1 tabl et TID PRN severe anxiety [place] 3 [facility] [address] MG Active 1 ca psule Orally Once a day Celexa ND 41840445276 40 MG Active TAKE 1 TABLET BY MOUTH ONCE A DAY ProAir HFA [facility] 44272137029 108 (90 Base) Active 2 p uffs as MCG/ACT needed Inhalation every 6 hrs Questran [facility] 98745915297 4 GM Orally Active 1 packe t Twice a day mixed with water or non-carbona joanna drink Spiriva Respimat ND 79588034904 2.5 microgram Activ e 2 puffs Inhaled Once a day Mucinex Maximum ND 76380614853 1200 MG Orally Activ e 1 tablet as Strength every 12 hrs needed Symbicort NDC 84689950564 80-4.5 MCG/ACT Active 2 p uffs Inhalation Twice a day Montelukast [facility] 54263207041 10 MG Active TAKE 1 Sodium TABLET BY MOUTH ONCE A DAY IN THE EVENING Glucosamine [facility] 58549133478 500 MG Orally Active 1 capsule Three times a with a yris l day Albuterol [facility] 40711659129 (2.5 MG/3ML) Active 3 ml as Sulfate 0.083% needed Inhalation Three times a day Claritin [facility] 23260652880 10 MG Orally Active 1 tabl et Once a day Prolia [facility] 33673163367 60 MG/ML Active as directed Subcutaneous ProAir HFA [facility] 31682216048 108 (90 Base) Active INH SIOBHAN TWO MCG/ACT PUFFS BY MOUTH EVERY 6 HOURS NEEDED Nasonex [facility] 81138923920 50 MCG/ACT Active 2 sprays in Nasally Once a each day nostril Letairis [facility] 60012418242 10 MG Orally Active 1 tabl et Once a day Citalopram [facility] 23648327568 40 MG Orally Active 1 ta blet Hydrobromide Once a day Acyclovir [facility] 70234974034 200 MG Orally Active 1 ca psule Twice a day Results No Known Results Summary Purpose eClinicalWorks Submission
--- OUTSIDE RECORDS SUMMARY | 2019-11-07 15:11 | XMS REPORT ---
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 Assessment Fatty liver K76.0 Active Assessment Depression with anxiety F41.8 Acti ve Assessment Chronic obstructive pulmonary J44.9 Active disease, unspecified COPD type Assessment COPD with exacerbation J44.1 Activ e Medications Medication Code Code Instructions Start End Status Dosage System Date Date Glucosamine [facility] 69715358584 500 MG Orally Active 1 capsule Three times a with a yris l day Mucinex Maximum [facility] 78983363104 1200 MG Orally Activ e 1 tablet as Strength every 12 hrs needed Spiriva Respimat [facility] 06665126290 2.5 microgram Activ e 2 puffs Inhaled Once a day ProAir HFA [facility] 20339189587 108 (90 Base) Active INH SIOBHAN TWO MCG/ACT PUFFS BY MOUTH EVERY 6 HOURS NEEDED Letairis [facility] 05064911815 10 MG Orally Active 1 tabl et Once a day PredniSONE ND 07711770223 20 MG Orally Jun 30, Jul 05, Active 2 ta blet Once a day 2019 2019 Citalopram ND 54830898343 40 MG Orally Active 1 ta blet Hydrobromide Once a day Claritin ND 61362540961 10 MG Orally Active 1 tabl et Once a day ProAir HFA [facility] 17085734191 108 (90 Base) Active 2 p uffs as MCG/ACT needed Inhalation every 6 hrs Xanax [facility] 66446315626 0.5 MG Orally Active 1 tabl et TID PRN severe anxiety Montelukast [facility] 61028373658 10 MG once a Active TA KE 1 Sodium day TABLET BY MOUTH ONCE A DAY IN THE EVENING Symbicort [facility] 13531955912 80-4.5 MCG/ACT Active 2 p uffs Inhalation Twice a day Questran [facility] 90286551171 4 GM Orally Active 1 packe t Twice a day mixed with water or non-carbona joanna drink [place] 3 [facility] [address] MG Active 1 ca psule Orally Once a day Albuterol [facility] 62629555637 (2.5 MG/3ML) Active 3 ml as Sulfate 0.083% needed Inhalation Three times a day Vitamin D [facility] 18630601608 2000 UNIT Active 1 tablet Orally Once a day Celexa [facility] 38091069312 40 MG Orally Active 1 table t Once a day Nasonex [facility] 60245935306 50 MCG/ACT Active 2 sprays in Nasally Once a each day nostril Acyclovir [facility] 00564447453 200 MG Orally Active 1 ca psule Twice a day Prolia [facility] 31716957646 60 MG/ML Active as directed Subcutaneous Results No Known Results Summary Purpose eClinicalWorks Submission
--- OUTSIDE RECORDS SUMMARY | 2019-11-07 15:11 | XMS REPORT ---
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 Problem Depression with anxiety F41.8 Acti ve Medications Medication Code Code Instructions Start End Status Dosage System Date Date [place] 3 [facility] [address] MG Active 1 ca psule Orally Once a day Celexa [facility] 36955546438 40 MG Active TAKE 1 TABLET BY MOUTH ONCE A DAY Citalopram [facility] 38713286919 40 MG Orally Active 1 ta blet Hydrobromide Once a day Acyclovir [facility] 32058553111 200 MG Orally Active 1 ca psule Twice a day Montelukast [facility] 61721106864 10 MG Active TAKE 1 Sodium TABLET BY MOUTH ONCE A DAY IN THE EVENING Symbicort [facility] 71473249910 80-4.5 MCG/ACT Active 2 p uffs Inhalation Twice a day Xanax [facility] 45588263364 0.5 MG Orally Active 1 tabl et TID PRN severe anxiety Glucosamine ND 41840793184 500 MG Orally Active 1 capsule Three times a with a yris l day Celexa ND 89375902740 40 MG Orally Active 1 table t Once a day ProAir HFA [facility] 60133785765 108 (90 Base) Active INH SIOBHAN TWO MCG/ACT PUFFS BY MOUTH EVERY 6 HOURS NEEDED Nasonex ND 91448095941 50 MCG/ACT Active 2 sprays in Nasally Once a each day nostril Spiriva Respimat [facility] 03169949083 2.5 microgram Activ e 2 puffs Inhaled Once a day Letairis [facility] 36165871794 10 MG Orally Active 1 tabl et Once a day Claritin [facility] 19055399560 10 MG Orally Active 1 tabl et Once a day Albuterol [facility] 55942713829 (2.5 MG/3ML) Active 3 ml as Sulfate 0.083% needed Inhalation Three times a day Mucinex Maximum [facility] 34101475786 1200 MG Orally Activ e 1 tablet as Strength every 12 hrs needed Prolia [facility] 19869467950 60 MG/ML Active as directed Subcutaneous ProAir HFA [facility] 42753738122 108 (90 Base) Active 2 p uffs as MCG/ACT needed Inhalation every 6 hrs Questran [facility] 52810199978 4 GM Orally Active 1 packe t Twice a day mixed with water or non-carbona joanna drink Vitamin D [facility] 71824108893 2000 UNIT Active 1 tablet Orally Once a day Montelukast ND 56031320703 10 MG once a Active TA KE 1 Sodium day TABLET BY MOUTH ONCE A DAY IN THE EVENING Results No Known Results Summary Purpose eClinicalWorks Submission
--- OUTSIDE RECORDS SUMMARY | 2019-11-07 15:11 | XMS REPORT ---
:1945 Author Organization eClinicalWorks Care Team Providers Name Role Phone Refugio Crawford Provider Role Unavailable Allergies No Known Allergies Problems Problem Type Condition Code Onset Dates Condition Statu s Problem Shingles B02.9 Active Problem Age-related osteoporosis without M81.0 Active current pathological fracture Problem Fatty liver K76.0 Active Problem Depression with anxiety F41.8 Acti [...] J44.9 Active disease, unspecified COPD type Medications No Known Medications Results No Known Results Summary Purpose [employer]Clinical[employer] Submission
--- OUTSIDE RECORDS SUMMARY | 2019-11-07 15:11 | XMS REPORT ---
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
[2019-11-07] MEDS ORDERED: METHYLPREDNISOLONE 125 MG INJ ONE (16:16)
[2019-11-07] MEDS ORDERED: IPRATROPIUM BROM 0.5MG/2.5ML ONE (16:16)
[2019-11-07] MEDS ORDERED: MAGNESIUM SULFATE 1 gm IVPB 1 GM/100 ML BAG IV ONE (16:17)
[2019-11-07] MEDS ORDERED: LEVALBUTEROL 1.25 MG/3 ML NEB ONE (16:17)
--- NOTE | 2019-11-07 16:28 | RAD REPORT ---
EXAM DESCRIPTION: Jade Single View11/07/2019 3:52 pm CLINICAL HISTORY: Shortness breath COMPARISON: 2019 FINDINGS: Lungs are hyperaerated consistent COPD. Honeycombing within the lungs consistent with pulmonary fibrosis. A lung consolidation is not seen. The heart is size
[2019-11-07 16:47] LABS: ALT/SGPT 33 U/L (12-78); AST/SGOT 31 U/L (15-37); Albumin 3.9 g/dL (3.4-5.0); Alkaline Phosphatase 68 U/L (45-117); BUN Blood Urea Nitrogen 11 mg/dL (7-18); Bicarbonate 28 mmol/L (21-32); Bilirubin Direct < 0.1 mg/dL (0-0.2); Bilirubin Total 0.2 mg/dL (0.2-1.0); Glucose Level 83 mg/dL (74-106); Magnesium 2.3 mg/dL (1.8-2.4); NT PRO-BNP 599 pg/mL (<450); Potassium 4.1 mmol/L (3.5-5.1); Protein, Total 7.5 g/dL (6.4-8.2); Sodium Level 137 mmol/L (136-145); Troponin (Emerg Dept Use Only) < 0.02 ng/mL (0.0-0.045)
[2019-11-07 18:04] LABS: Protime INR 0.95
[2019-11-07 18:06] LABS: Absolute Lymphocytes (CBC) 1.9 K/uL (0.7-4.9); Basophils % 1.1 % (0-1.3); Hematocrit 37.6 % (36.0-45.0); Lymphocytes % 21.7 % (15.3-44.8); RBC Red Blood Cell Count 4.07 M/uL (3.86-4.86)
[2019-11-07] MEDS ORDERED: ALPRAZOLAM 0.5 MG TABLET ONE (18:33)
--- NOTE | 2019-11-07 19:50 | EDPHYS ---
Physician Documentation [facility] Name: Seema Romo Age: 73 yrs Sex: Female : 1945 Arrival Date: 11/07/2019 Time: 15:08 Bed 16 Private MD: ED Physician Chilango Jansen HPI: 11/06 15:18 This 73 yrs old Female presents to ER via Unassigned with complaints of kb Shortness Of Breath. 15:25 The patient has shortness of breath at rest, and the patient has a history of COPD. kb Onset: The symptoms/episode began/occurred 1 week(s) ago. Duration: The symptoms are continuous, and are steadily getting worse. The patient's shortness of breath is aggravated by light activity, walking, is alleviated by nothing. Associated signs and symptoms: Pertinent positives: productive cough, Pertinent negatives: chest pain, fever. Severity of symptoms: At their worst the symptoms were moderate in the emergency department the symptoms are unchanged. The patient has experienced similar episodes in the past. Pt reports she has been out of 2 of her inhalers for over 2 weeks and hasn't been able to get them refilled because the dr was closed. States she has been having shortness of breath for a week that has been getting worse. Last night wasn't able to sleep and would have coughing fits that would make her o2 sat drop. States oxygen sat drops into the 60s when she is walking. Tried walking to the restroom today and had to use her rescue inhaler twice on the way. Normally wears O2 at 3L, but has been using 4L this week and unable to wean back down. ROS: 15:29 Constitutional: Negative for fever, chills, and weight loss, ENT: Negative for injury, kb pain, and discharge, Neck: Negative for injury, pain, and swelling, Cardiovascular: Negative for chest pain, palpitations, and edema, Abdomen/GI: Negative for abdominal pain, nausea, vomiting, diarrhea, and constipation, Back: Negative for injury and pain, MS/Extremity: Negative for injury and deformity, Skin: Negative for injury, rash, and discoloration, Neuro: Negative for headache, weakness, numbness, tingling, and seizure. 15:29 Respiratory: Positive for cough, with yellow sputum, dyspnea on exertion, shortness of breath, wheezing. Exam: 15:29 Constitutional: This is a well developed, well nourished patient who is awake, alert, kb and in no acute distress. Head/Face: Normocephalic, atraumatic. Neck: Trachea midline, no thyromegaly or masses palpated, and no cervical lymphadenopathy. Supple, full range of motion without nuchal rigidity, or vertebral point tenderness. No Meningismus. Chest/axilla: Normal chest wall appearance and motion. Nontender with no deformity. No lesions are appreciated. Cardiovascular: Regular rate and rhythm with a normal S1 and S2. No gallops, murmurs, or rubs. Normal PMI, no JVD. No pulse deficits. Abdomen/GI: Soft, non-tender, with normal bowel sounds. No distension or tympany. No guarding or rebound. No evidence of tenderness throughout. Back: No spinal tenderness. No costovertebral tenderness. Full range of motion. Skin: Warm, dry with normal turgor. Normal color with no rashes, no lesions, and no evidence of cellulitis. MS/ Extremity: Pulses equal, no cyanosis. Neurovascular intact. Full, normal range of motion. Neuro: Awake and alert, GCS 15, oriented to person, place, time, and situation. Cranial nerves II-XII grossly intact. Motor strength 5/5 in all extremities. Sensory grossly intact. Cerebellar exam normal. Normal gait. 15:29 Respiratory: moderate respiratory distress is noted, Respirations: labored breathing, that is moderate, Breath sounds: wheezing: expiratory that is moderate, is heard diffusely. Vital Signs: 15:34 BP 159 / 105; Pulse 116; Resp 38; Temp 98.6; Pulse Ox 79% on 3 lpm NC; Weight 38.1 kg; ls4 Height 4 ft. 11 in. (149.86 cm); Pain 3/10; 18:25 BP 101 / 55; Pulse 96; Resp 16; Temp 97.7(TE); Pulse Ox 95% ; lt1 15:34 Body Mass Index 16.97 (38.10 kg, 149.86 cm) ls4 MDM: 15:08 Patient medically screened. kb 15:17 Data reviewed: vital signs, nurses notes. kb 15:45 Data interpreted: Pulse oximetry: on 3L(s) per nasal canula, is 79 %. Interpretation: esther hypoxia. Plan: will initiate a nebulizer treatment. pt is on home O2 at 3L. 18:18 ED course: Pt reports her breathing is better after treatment. States she would rather kb go home than stay in the hospital. States she just needs a course of prednisone. States she is getting anxious and needs a xanax because that is what she normally takes. Will monitor sat and resp status.. 19:10 ED course: Discussed admission with pt again. Pt does not want to be admitted. Pt kb states she will return for worsening symptoms. States she is breathing normally for her at this time. . 19:48 Counseling: I had a detailed discussion with the patient and/or guardian regarding: the kb historical points, exam findings, and any diagnostic results supporting the discharge/admit diagnosis, lab results, radiology results, the need for further work-up and treatment in the hospital. ED course: Pt ambulated and o2 sat dropped to 62%. Pt educated that she really needs to be admitted with oxygen dropping that low. Pt states "But it's going back up." I informed pt that she would have to sign out AMA if she wants to go home. Pt agreed to stay here, but does not want to be transferred.. 19:49 Physician consultation: Edison Sanchez was called at 19:49. kb 11/06 15:16 Order name: Basic Metabolic Panel; Complete Time: 16:48 kb 11/06 15:16 Order name: CBC with Diff; Complete Time: 18:08 kb 11/06 15:16 Order name: LFT's; Complete Time: 16:48 kb 11/06 15:16 Order name: Magnesium; Complete Time: 16:48 kb 11/06 15:16 Order name: NT PRO-BNP; Complete Time: 16:48 kb 11/06 15:16 Order name: PT-INR; Complete Time: 18:11 kb 11/06 15:16 Order name: Troponin (emerg Dept Use Only); Complete Time: 16:48 kb 11/06 15:16 Order name: XRAY Chest (1 view); Complete Time: 16:35 kb 11/06 15:43 Order name: Blood Culture Adult (2) kb 11/06 15:43 Order name: Lactate; Complete Time: 16:35 kb 11/06 15:43 Order name: Procalcitonin; Complete Time: 16:43 kb 11/06 15:44 Order name: COVID-19 kb 11/06 15:16 Order name: EKG; Complete Time: 15:17 kb 11/06 15:16 Order name: Cardiac monitoring; Complete Time: 17:09 kb 11/06 15:16 Order name: EKG - Nurse/Tech; Complete Time: 17:09 kb 11/06 15:16 Order name: IV Saline Lock; Complete Time: 17:09 kb 11/06 15:16 Order name: Labs collected and sent; Complete Time: 17:09 kb 11/06 15:16 Order name: O2 Per Protocol; Complete Time: 17:09 kb 11/06 15:16 Order name: O2 Sat Monitoring; Complete Time: 17:09 kb 11/06 18:09 Order name: Vital Signs; Complete Time: 18:27 kb Administered Medications: 15:40 Drug: Xopenex (3) 1.25 mg Route: Inhalation; ls4 15:40 Drug: AtroVENT Aerosol 0.5 mg Route: Inhalation; ls4 15:40 Drug: SOLU-Medrol 125 mg Route: IVP; Site: right forearm; ls4 16:40 Follow up: Response: No adverse reaction; Marked relief of symptoms ls4 15:40 Drug: Magnesium Sulfate 1 grams Route: IVPB; Infused Over: 1 hrs; Site: right forearm; ls4 18:20 Drug: XANax Tablet 0.5 mg Route: PO; ls4 18:50 Follow up: Response: No adverse reaction; Marked relief of symptoms ls4 Disposition: 11/07/19 19:50 Hospitalization ordered by Edison Sanchez for Observation. Preliminary diagnosis is Chronic obstructive pulmonary disease with (acute) exacerbation. - Bed requested for Telemetry/MedSurg (observation). - Status is Observation. sg - Condition is Stable. - Problem is an acute exacerbation. - Symptoms are unchanged. Addendum: 11/09/2019 09:43 Co-signature as Attending Physician, Chilango Jansen MD I agree with the assessment and c marshall plan of care. Signatures: Dispatcher [employer] Keturah Ahumada FNP-C FNP-Ckb Webb, Martha, RN RN Bishop Carrizales RN RN Chilango Jansen MD MD cha Stewart, Lisa, RN RN ls4 Corrections: (The following items were deleted from the chart) 11/06 20:37 19:50 Hospitalization Ordered by Edison Sanchez for Observation. Preliminary diagnosis mw is Chronic obstructive pulmonary disease with (acute) exacerbation. Bed requested for Telemetry/MedSurg (observation). Status is Observation. Condition is Stable. Problem is an acute exacerbation. Symptoms are unchanged. kb 21:46 20:37 11/07/2019 19:50 Hospitalization Ordered by Edison Sanchez for Observation. sg Preliminary diagnosis is Chronic obstructive pulmonary disease with (acute) exacerbation. Bed requested for Telemetry/MedSurg (observation). Status is Observation. Condition is Stable. Problem is an acute exacerbation. Symptoms are unchanged. mw
--- NOTE | 2019-11-07 19:50 | ER ---
Nurse's Notes [facility] Name: Seema Romo Age: 73 yrs Sex: Female : 1945 Arrival Date: 11/07/2019 Time: 15:08 Bed 16 Private MD: Diagnosis: Chronic obstructive pulmonary disease with (acute) exacerbation Presentation: 11/06 15:34 Chief complaint: EMS states: PT HAS HAD SHORTNESS OF BREATH FOR LAST WEEK BECOMING ls4 INCREASINGLY DIFFICULT TO BREATH YESTERDAY AND TODAY. Coronavirus screen: Proceed with normal triage. Patient denies a cough. Patient reports shortness of breath or difficulty breathing. Patient denies measured and/or subjective temperature greater than 100.4F prior to today's visit. Patient denies travel on a cruise ship or to a country [facility] currently lists as an affected area. Patient denies contact with known and/or suspected case of COVID-19. PT HAS CHRONIC SHORTNESS OF BREATH, PULMONARY HYPERTENSION. Ebola Screen: No symptoms or risks identified at this time. Initial Sepsis Screen: Does the patient meet any 2 criteria? RR > 20 per min. HR > 90 bpm. Does the patient have a suspected source of infection? No. Patient's initial sepsis screen is negative. Risk Assessment: Do you want to hurt yourself or someone else? Patient reports no desire to harm self or others. Onset of symptoms is unknown. 15:34 Method Of Arrival: EMS: [facility] 4 15:34 Acuity: VADIM 2 ls4 Triage Assessment: 15:44 General: Appears in no apparent distress. comfortable. ls4 Vital Signs: 15:34 BP 159 / 105; Pulse 116; Resp 38; Temp 98.6; Pulse Ox 79% on 3 lpm NC; Weight 38.1 kg; ls4 Height 4 ft. 11 in. (149.86 cm); Pain 3/10; 18:25 BP 101 / 55; Pulse 96; Resp 16; Temp 97.7(TE); Pulse Ox 95% ; lt1 15:34 Body Mass Index 16.97 (38.10 kg, 149.86 cm) ls4 ED Course: 15:08 Patient arrived in ED. tw2 15:08 Keturah Reynolds FNP-C is [facility]. kb 15:08 Chilango Jansen MD is Attending Physician. kb 15:31 Brittney Haynes, RN is Primary Nurse. ls4 15:37 Triage completed. ls4 15:52 XRAY Chest (1 view) In Process Unspecified. EDMS 19:49 Edison Sanchez is Hospitalizing Provider. kb Administered Medications: 15:40 Drug: Xopenex (3) 1.25 mg Route: Inhalation; ls4 15:40 Drug: AtroVENT Aerosol 0.5 mg Route: Inhalation; ls4 15:40 Drug: SOLU-Medrol 125 mg Route: IVP; Site: right forearm; ls4 16:40 Follow up: Response: No adverse reaction; Marked relief of symptoms ls4 15:40 Drug: Magnesium Sulfate 1 grams Route: IVPB; Infused Over: 1 hrs; Site: right forearm; ls4 18:20 Drug: XANax Tablet 0.5 mg Route: PO; ls4 18:50 Follow up: Response: No adverse reaction; Marked relief of symptoms ls4 Outcome: 19:50 Decision to Hospitalize by Provider. kb 21:46 Patient left the ED. sg Signatures: Dispatcher [employer] EDMS Keturah Reynolds, VICE PRESIDENT SAFETY-C VICE PRESIDENT SAFETY-CkBishop Araujo RN RN sg Carolin Hsu RN RN tw2 Brittney Haynes, RN RN ls4 Rachelle Zuleta [facility]
[2019-11-07] MEDS ORDERED: ACETAMINOPHEN 500 MG TAB PO PRN (21:18)
[2019-11-07] MEDS ORDERED: ONDANSETRON 4 MG/2 ML VIAL IV PRN (21:18)
--- NOTE | 2019-11-07 21:35 | P.HP ---
Certification for Inpatient Patient admitted to: Inpatient With expected LOS: >2 Midnights Practitioner: I am a practitioner with admitting privileges, knowledge of patient current condition, hospital course, and medical plan of care. Services: Services provided to patient in accordance with Admission requirements found in Title 42 Section 412.3 of the Code of Federal Regulations Patient History Date of Service: 11/07/19 Reason for admission: Shortness of breath and hypoxia History of Present Illness: 73-year-old woman with a history of pulmonary fibrosis, pulmonary hypertension on pulmonary vasodilators, chronic respiratory failure on 3 L of oxygen by nasal cannula at baseline was brought to the emergency department due to cough and hypoxia. Patient is reported to have desaturated to 62% on her home oxygen. He reports cough productive of green to yellow sputum and some wheezing. Patient denied any fever and denied any chest pain. Chest x-ray done in the ED report hyperaeration and honeycombed appearance consistent with pulmonary fibrosis. Per report, she was still desaturating to 62% after treatment in the ED. Patient is admitted for further management. Allergies Sulfa (Sulfonamide Antibiotics) Allergy (Intermediate, Verified 10/05/15 20:00) Hives/Rash sulfamethoxazole [From Bactrim] Allergy (Unverified 08/01/16 15:49) Unknown trimethoprim [From Bactrim] Allergy (Unverified 08/01/16 15:49) Unknown Home Medications: ALPRAZolam [Xanax*] 0.25 mg PO TIDP PRN 10/05/15 ALPRAZolam [Xanax*] 0.5 mg PO TIDP PRN 10/05/15 Acyclovir [Zovirax] 200 mg PO BID 10/05/15 Albuterol Sulfate [Albuterol Sulfate 0.083% Neb Soln] 1 inh IN QIDP PRN 10/05/15 Albuterol Sulfate [Proair Hfa] 1 inh IN Q4HP PRN 10/05/15 Cholecalciferol (Vitamin D3) [Vitamin D 2,000 Unit Tab] 2,000 units PO DAILY 10/05/15 Citalopram Hydrobromide [Celexa] 40 mg PO DAILY 10/05/15 Fluticasone Propionate [Flovent Diskus] 2 inh IN BID 10/05/15 Glucosamine/D3/Boswellia Alanis [Glucosamine Complex Tablet] 1 tab PO DAILY 10/05/15 Guaifenesin [Mucinex] 1,200 mg PO DAILY 10/05/15 Montelukast [Singulair*] 10 mg PO BEDTIME 10/05/15 Multivitamin [One-A-Day Essential] 1 tab PO DAILY 10/05/15 Tiotropium [Spiriva Handihaler*] 1 inh IN Q4HP PRN 10/05/15 Ciprofloxacin HCl [Cipro 500 MG Tablet] 500 mg PO BID #20 tablet 10/08/15 Metronidazole 500 mg PO TID #30 tablet 10/08/15 - Past Medical/Surgical History Diabetic: No -: shingles -: copd -: depression with anxiety -: mycobacterium avium -: neuropathy, -: fatty liver -: osteoporosis -: left upper lobectomy -: l kidney cyst -: tonsillectomy -: csection -: tubal ligation - Family History Mother -: Lung disease Notes: copd 1978 Father -: Liver disease Notes: cirrhosis - Social History Smoking Status: Former smoker Alcohol use: Yes CD- Drugs: No Caffeine use: Yes Review of Systems Other: Except as documented, all other systems reviewed and negative. Physical Examination - Physical Exam General: Alert, In no apparent distress, Oriented x3 HEENT: Normocephalic, Mucous membr. moist/pink, Sclerae nonicteric Neck: Supple, JVD not distended Respiratory: Clear to auscultation bilaterally, Diminished Cardiovascular: No edema, Regular rate/rhythm, Normal S1 S2, No murmurs Gastrointestinal: Normal bowel sounds, Soft and benign, Non-distended, No tenderness Musculoskeletal: No swelling, No erythema Integumentary: No rashes Neurological: Normal speech, Normal strength at 5/5 x4 extr, Cranial nerves 3-12 intact - Studies Laboratory Data (last 24 hrs) 11/07/19 16:08: Sodium 137, Potassium 4.1, BUN 11, Creatinine 0.64, Glucose 83, Magnesium 2.3, Total Bilirubin 0.2, AST 31, ALT 33, Alkaline Phosphatase 68 11/07/19 16:05: PT 11.2, INR 0.95 11/07/19 16:05: WBC 8.9, Hgb 12.4, Hct 37.6, Plt Count 271 Assessment and Plan - Problems (Diagnosis) (1) COPD exacerbation Current Visit: Yes Status: Acute (2) Pulmonary fibrosis Current Visit: Yes Status: Acute (3) Acute and chronic respiratory failure with hypoxia Current Visit: Yes Status: Acute (4) Pulmonary hypertension Current Visit: Yes Status: Acute - Plan Admit patient to the medical floor. Start IV Solu-Medrol, IV Levaquin. Schedule duoneb. Titrate oxygen Obtain Sputum culture Pulmonary consult. Continue home medications for pulmonary hypertension - Advance Directives Does patient have a Living Will: Yes Does patient have a Durable POA for Healthcare: Yes - Code Status/Comfort Care Code Status: Full Code
[2019-11-07 22:20] VITALS: BMI 17.6
[2019-11-07] MEDS ORDERED: Levofloxacin 750mg IV 750 MG/150 ML BAG IV SCH (23:00)
[2019-11-07] MEDS: METHYLPREDNISOLONE 40 MG INJ IV SCH (23:57)
[2019-11-08] MEDS: IPRATROPIUM BROM 0.5MG/2.5ML NEB SCH ×4 (02:30→19:50)
[2019-11-08] MEDS: ALBUTEROL 2.5 MG/3 ML NEB SOL NEB SCH ×4 (02:30→19:50)
[2019-11-08] MEDS: METHYLPREDNISOLONE 40 MG INJ IV SCH ×3 (05:02→17:41)
[2019-11-08 05:59] LABS: Absolute Lymphocytes (CBC) 0.9 K/uL (0.7-4.9); Basophils % 0.2 % (0-1.3); Hematocrit 35.5 % (36.0-45.0); Lymphocytes % 13.7 % (15.3-44.8); MPV 7.8 fL (7.6-11.3); RBC Red Blood Cell Count 3.83 M/uL (3.86-4.86)
[2019-11-08 07:39] LABS: Urine Appearance CLEAR; Urine Bilirubin NEGATIVE (NEG); Urine Blood NEGATIVE (NEG); Urine Color YELLOW; Urine Glucose NEGATIVE (NEG); Urine Protein NEGATIVE (NEG); Urine Specific Gravity <=1.005 (1.005-1.030); Urine Urobilinogen 0.2 mg/dL (0.2-1.0); Urine pH 7.5 (5.0-7.0)
[2019-11-08 07:59] LABS: Urine Microscopic Reflex NO UMIC
[2019-11-08] MEDS: POTASS/SODIUM PHOSPHATE 1 PKT POWD.PACK PO SCH ×3 (08:35→11:29)
[2019-11-08] MEDS: ENOXAPARIN 40 MG/0.4 ML SQ SCH (08:37)
[2019-11-08] MEDS: ALPRAZOLAM 0.5 MG TABLET PO PRN (10:39)
[2019-11-08] MEDS: GUAIFENESIN 600 MG SA TAB PO SCH (10:40)
[2019-11-08] MEDS: ACYCLOVIR 400 MG TABLET PO SCH (10:40)
[2019-11-08] MEDS: CITALOPRAM 10 MG TABLET PO SCH (10:40)
[2019-11-08] MEDS: ARFORMOTEROL TARTRATE 15 MCG/2 ML VIAL.NEB NEB SCH ×2 (12:28→19:50)
--- NOTE | 2019-11-08 12:30 | P.CNS ---
Date of Consult: 11/08/19 Reason for Consult: Pulmonary fibrosis COPD exacerbation Chief Complaint: Shortness of breath and hypoxia History of Present Illness: Patient is 73 years of age with a history of pulmonary hypertension pulmonary fibrosis COPD status post left upper lobe lobectomy admitted with worsening dyspnea apparently she ran out of her inhalers patient was recently started on tadalafil which made her worse denies any fever or chill aleman virus negative still little short of breath productive cough is on home oxygen Allergies Sulfa (Sulfonamide Antibiotics) Allergy (Intermediate, Verified 11/07/19 22:25) Hives/Rash trimethoprim [From Bactrim] Allergy (Intermediate, Verified 11/07/19 22:25) Rash sulfamethoxazole [From Bactrim] Allergy (Verified 11/07/19 22:25) Unknown Home Medications: ALPRAZolam [Xanax] 0.5 mg PO DAILYPRN PRN 11/07/19 Acyclovir [Zovirax] 200 mg PO DAILY 11/07/19 Albuterol Neb [Proventil 0.083% Neb Soln] 1 amp IH Q4HP PRN 11/07/19 Albuterol Sulfate [Proair Hfa] 8.5 gm IH Q4HP PRN 11/07/19 Ambrisentan [Letairis] 10 mg PO DAILY 11/07/19 Budesonide/Formoterol Fumarate [Symbicort 160-4.5 Mcg Inhaler] 2 puff IH BID 11/07/19 Cholecalciferol (Vitamin D3) [Vitamin D3] 2,000 unit PO DAILY 11/07/19 Citalopram [Celexa] 40 mg PO DAILY 11/07/19 Denosumab 60 mg SQ DIRECTED 11/07/19 Glucosamine HCl 500 mg PO DAILY 11/07/19 Guaifenesin [Mucinex] 1,200 mg PO DAILY 11/07/19 Montelukast [Singulair] 10 mg PO DAILY 11/07/19 Eliot-3 Fatty Acids [Eliot-3] 3,000 mg PO DAILY 11/07/19 Tiotropium [Spiriva Handihaler*] 2 puff IH DAILY 11/07/19 Turmeric Root Extract [Turmeric] 500 mg PO DAILY 11/07/19 predniSONE [Deltasone] 20 mg PO TID 11/07/19 tadalafiL [Tadalafil] 2 mg PO DAILY 11/07/19 Acyclovir [Zovirax] 200 mg PO DAILY 11/08/19 - Past Medical/Surgical History Diabetic: No -: shingles -: copd -: depression with anxiety -: mycobacterium avium -: neuropathy, -: fatty liver -: osteoporosis -: left upper lobectomy -: l kidney cyst -: tonsillectomy -: csection -: tubal ligation - Family History Mother Medical History: Lung disease Notes: copd 1978 Father Medical History: Liver disease Notes: cirrhosis Brother Medical History: Cancer Notes: Leukemia Sister Medical History: Lung disease - Social History Smoking Status: Former smoker Alcohol use: Yes CD- Drugs: No Caffeine use: Yes Place of Residence: Home Review of Systems Unremarkable General: Weakness Respiratory: Cough, Shortness of Breath Physical Examination Temp Pulse Resp BP Pulse Ox 99.4 F 105 H 24 H 117/60 93 11/08/19 08:00 11/08/19 08:00 11/08/19 08:00 11/08/19 08:00 11/08/19 08:00 General: Alert, Moderate distress Neck: Supple Respiratory: Crackles/rales (Crackles bilaterally), Expiratory wheezes Cardiovascular: No edema, Regular rate/rhythm, Normal S1 S2 Gastrointestinal: Normal bowel sounds, Soft and benign Laboratory Data (last 24 hrs) 11/07/19 16:08: Sodium 137, Potassium 4.1, BUN 11, Creatinine 0.64, Glucose 83, Magnesium 2.3, Total Bilirubin 0.2, AST 31, ALT 33, Alkaline Phosphatase 68 11/07/19 16:05: PT 11.2, INR 0.95 11/07/19 16:05: WBC 8.9, Hgb 12.4, Hct 37.6, Plt Count 271 - Problems (1) COPD exacerbation Current Visit: Yes Status: Acute Plan: Patient is 73 years of age with a history of COPD 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 prednisone add Brovana change steroids to Q 8 arterial blood gases. 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
[2019-11-08 13:28] LABS: Arterial Blood Carboxyhemoglob 1.3 % (0-1.5); Blood Gas Oxyhemoglobin 91.6 % (94-97); Blood O2 Saturation 93.6 % (92-98.5)
--- NOTE | 2019-11-08 14:33 | PN ---
Date of Progress Note: 11/08/2019 Code Status: Full. Subjective: Patient is seen and examined, chart reviewed, and case discussed with RN. Patient state s she is still feeling short of breath, currently on 3 L of oxygen. Minimal cough. COVID testing wa s negative. Medications: List reviewed. Physical Examination: Vital Signs: Temperature 99.4, heart rate 105, blood pressure 117/60, respirations 24, O2 93% on 3 L via nasal cannula. General: Awake, alert, oriented x3. Elderly female, ill-appearing, frail, cachectic. BMI 17. CV: S1, S2. Sinus tachycardia. Peripheral pulses weak. Respiratory: Diminished breath sounds. No wheezing or stridor. Patient is tachypneic. Gastrointestinal: Abdomen is soft, nontender, nondistended. Positive bowel sounds. Extremities: No clubbing, cyanosis, or edema. Neurologic: Nonfocal. Laboratory Data: Sodium 138, potassium 4, chloride 106, CO2 of 26, BUN 13, creatinine 0.73, glucose 151, calcium 8.4, phosphorus 2. WBC 6.7, H and H 11.8 and 35.5, platelets 237, neutrophils 84%. UA is negative. COVID testing was negative as well. Assessment: 1.Acute chronic obstructive pulmonary disease exacerbation. We will continue with IV Solu-Medrol an d IV Levaquin. Patient is on supplemental oxygen, does use home O2 3 L. Appreciate Pulmonology inpu t. 2.Acute on chronic respiratory failure with hypoxia secondary to chronic obstructive pulmonary disea se and pulmonary fibrosis. We will continue with supplemental O2. 3.Pulmonary fibrosis. 4.Pulmonary hypertension. 5.Failure to thrive. BMI 17. 6.History of shingles. We will continue acyclovir. 7.Depression with anxiety. Patient asking for her Xanax. We will continue p.r.n. We will monitor. O2 saturations currently 98% on 3 L. Plan: Follow up with Pulmonology recommendations. /RAYSHAWN Voice ID: [id number] Report ID: [id number]
[2019-11-08] MEDS ORDERED: ALPRAZOLAM 0.5 MG TABLET PO PRN (20:19)
[2019-11-08] MEDS ORDERED: HOME MED 1 EA UNK (Budesonide/Formoterol Fumarate [Symbicort 160-4.5 Mcg Inhaler] 2 PUFF) IH SCH (21:00)
[2019-11-09] MEDS: METHYLPREDNISOLONE 40 MG INJ IV SCH ×2 (02:10→08:49)
[2019-11-09] MEDS: IPRATROPIUM BROM 0.5MG/2.5ML NEB SCH ×3 (02:38→12:50)
[2019-11-09] MEDS: ALBUTEROL 2.5 MG/3 ML NEB SOL NEB SCH ×3 (02:38→12:50)
[2019-11-09 05:31] LABS: Absolute Lymphocytes (CBC) 0.9 K/uL (0.7-4.9); Basophils % 0.1 % (0-1.3); Hematocrit 33.4 % (36.0-45.0); MPV 7.6 fL (7.6-11.3); RBC Red Blood Cell Count 3.64 M/uL (3.86-4.86)
[2019-11-09 05:52] LABS: Phosphorus 3.9 mg/dL (2.5-4.9); Potassium 4.8 mmol/L (3.5-5.1)
[2019-11-09] MEDS: POTASS/SODIUM PHOSPHATE 1 PKT POWD.PACK PO SCH ×3 (06:58→10:59)
[2019-11-09] MEDS: ARFORMOTEROL TARTRATE 15 MCG/2 ML VIAL.NEB NEB SCH (07:40)
[2019-11-09 08:22] LABS: Blood Morphology Comment NOT SEEN (NOT SEEN); Platelet Estimate ADEQ
[2019-11-09] MEDS: ENOXAPARIN 40 MG/0.4 ML SQ SCH (08:49)
[2019-11-09] MEDS: GUAIFENESIN 600 MG SA TAB PO SCH (08:49)
[2019-11-09] MEDS: CITALOPRAM 10 MG TABLET PO SCH (08:49)
[2019-11-09] MEDS: ACYCLOVIR 400 MG TABLET PO SCH (08:53)
[2019-11-09] MEDS: ALPRAZOLAM 0.5 MG TABLET PO PRN (08:56)
[2019-11-09] MEDS ORDERED: TADALAFIL PO SCH (09:00)
[2019-11-09] MEDS ORDERED: ENSURE ENLIVE 237 ML CAN PO SCH (09:00)
[2019-11-09] MEDS ORDERED: AMBRISENTAN 10 MG PO SCH ×2 (09:00)
[2019-11-09] MEDS ORDERED: MONTELUKAST 10 MG TAB PO SCH (09:00)
[2019-11-09] MEDS ORDERED: ACYCLOVIR 200 MG PO SCH (09:00)
[2019-11-09 09:15] VITALS: O2SAT 90
--- NOTE | 2019-11-09 14:11 | PN ---
Date of Progress Note: 11/09/2019 Subjective: Patient seen and examined, chart reviewed, and case discussed with RN and Dr. Mares. Patient states she is feeling slightly better, still on 4 L, does get short of breath with walking, however, that is around her baseline. Medications: List reviewed. Physical Examination: Vital Signs: Temperature 98, heart rate 77, blood pressure 98/52, respirations 20, O2 90% on 4 L. General: Awake, alert, oriented x3. Elderly female, in some mild respiratory distress, frail, cachectic. BMI 17. CV: S1, S2. Regular rate and rhythm. Peripheral pulses weak. Respiratory: Diminished breath sounds. Minimal wheezing. Gastrointestinal: Abdomen is soft, nondistended. Positive bowel sounds. Extremities: No clubbing, cyanosis, or edema. Neurologic: Nonfocal. Laboratory Data: Sodium 141, potassium 4.8, chloride 109, CO2 of 28, BUN 20, creatinine 0.67, glucose 147, calcium 8.5, phosphorus 3.9. WBC 13.2, H and H 11.2 and 33.4, platelets 236, neutrophils 87%. Blood cultures no growth to date. Sputum culture pending. Assessment: A 73-year-old female with: 1. Acute chronic obstructive pulmonary disease exacerbation. Continue with steroids and Levaquin. Continue supplemental oxygen, currently on 4 L. 2. Acute on chronic respiratory failure with hypoxia secondary to chronic obstructive pulmonary disease exacerbation and pulmonary fibrosis. Continue supportive care. 3. Pulmonary fibrosis. Patient has had lobectomy. 4. Pulmonary hypertension. 5. Failure to thrive. BMI 17. 6. History of shingles. Continue acyclovir. 7. Depression with anxiety. Continue Xanax. Plan: Likely discharge in the next 24-48 hours once the patient is back to her baseline status. SA/MODL Voice ID: [id number] Report ID: [id number] [facility]
[2019-11-09 14:13] VITALS: BP 121/56; TEMP 97.6
[2019-11-09] MEDS ORDERED: levoFLOXacin 750 MG TAB PO SCH (21:00)
--- NOTE | 2019-11-10 06:18 | DS ---
Date of Discharge: 11/09/2019 Consultants: Dr. Mares with Pulmonology. Admitting Diagnoses: 1. Acute chronic obstructive pulmonary disease exacerbation. 2. Mixed fibrosis. 3. Acute on chronic respiratory failure with hypoxia. 4. Pulmonary hypertension. 5. Patient under investigation for coronavirus disease-2019. Discharge Diagnoses: 1. Acute chronic obstructive pulmonary disease exacerbation, improving. 2. Acute on chronic respiratory failure with hypoxia. 3. Pulmonary fibrosis. 4. Pulmonary hypertension. 5. Patient under investigation for coronavirus disease-2019, testing was negative. 6. Failure to thrive. 7. History of shingles. 8. Depression with anxiety. 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 Patient apparently desaturating to the 60s. Patient was admitted to the hospital for further evaluation. Chest x-ray showed hyperaeration honeycomb appearance consistent with pulmonary fibrosis picture. Due to her symptoms, patient was screen for COVID-19. This came back negative. Blood cultures were negative. Patient was started on IV steroids and inhalers were adjusted. Patient was seen by air pollution compliance inspector, Dr. Mares, and did well overall. Patient was able to ambulate without getting significantly short of breath. Cough improved. Blood pressure was a little bit on the low side, however, patient has been running low. Patient did have elevated lactate level, which is likely due to her COPD, being tachycardic and slightly tachypneic. Patient is afebrile. No signs of sepsis. Patient has slightly elevated white blood cell count from steroids. Patient was then cleared for discharge by pulmonology. She was back to her baseline, saturating on 91%-96% on 4 L. Patient normally uses 3 L at home. She was then cleared for discharge and sent home in a stable condition. Activity: No strenuous activity. Diet: Heart healthy. Followup: Follow up with primary care physician in 2-3 days. Follow up with air pollution compliance inspector, Dr. Mares in 2 weeks. Pickup of sample of TRELEGY from his office. Return to ER for worsening condition. Medications: As per medication reconciliation list. Patient will be taken off tildenafil which did not suit her. For physical exam findings, please see progress note dictated on day of discharge. Total time spent discharging patient was 39 minutes. /RAYSHAWN Voice ID: [id number] Report ID: [id number]
== END 2019-11-09 15:05 | disposition home or self-care (01) | DRG 190 ==
LOC: ER 15:05 → ERHOLD 21:14 → 4TH 21:20 → 2ND 11-08 00:38
PROVIDERS: ADMIT Internal Medicine; ATTEND Family Medicine
DX: J44.1 Chronic obstructive pulmonary disease with (acute) exacerbation (principal); J96.21 Acute and chronic respiratory failure with hypoxia; R64 Cachexia; F41.8 Other specified anxiety disorders; Z68.1 Body mass index [BMI] 19.9 or less, adult; I27.20 Pulmonary hypertension, unspecified; J84.10 Pulmonary fibrosis, unspecified; R62.7 Adult failure to thrive; Z99.81 Dependence on supplemental oxygen; Z20.828 Contact with and (suspected) exposure to other viral communicable diseases; Z88.1 Allergy status to other antibiotic agents; Z79.899 Other long term (current) drug therapy; Z79.01 Long term (current) use of anticoagulants; Z98.51 Tubal ligation status; Z90.2 Acquired absence of lung [part of]; Z87.891 Personal history of nicotine dependence
CPT/HCPCS: 36415; 71045; 80048; 80076; 81003; 82805; 83605; 83735; 83880; 84100; 84145; 84484; 85025; 85610; 87040; 94640; 94760; 96374; 96375; 99284; J1650; J2920; J2930; J3475; J7605; U0002

== ENCOUNTER 2019-11-23 23:31 | Inpatient (IN) | payer OTHER, MEDICARE ==
--- OUTSIDE RECORDS SUMMARY | 2019-11-23 23:35 | XMS REPORT | Clinical Summary ---
:1945 Author Organization [facility] [employer] Address [address] [place] [address] Care Team Providers Name Role Phone Crow [...] Overview: 2007 Left tiffanie thoracotomy, upper lobect suyz, lysis of pleural adhesions and mediastinal lymph [...] RIGHT HE ART CATH Cardiology MD Radha [[id number] (CPT )] 08/23/2019 Hospital Encounter Procedural Lopez [...] pathological fracture 04/13/2019 Transcribe Orders Access Laurel Dykse Age-rela ted MD osteoporosis without current pathological fracture (Prima ry Dx) 03/20/2019 Intake Access 12/28/2018 Refill Rheumatology Sonja Leslie MD Herpes infe ction on chronic valacyclovir after 11/22/2018 Immunizations Name Administration Dates Next Due FLUZONE [...] Comments Blood Pressure 95/46 08/23/2019 12:31 PM AIR TRAFFIC CONTROL OPERATOR Pulse 90 08/23/2019 12:31 PM AIR TRAFFIC CONTROL OPERATOR Temperature 36.5 C (97.7 F) 08/23/2019 11:39 AM AIR TRAFFIC CONTROL OPERATOR Respiratory Rate 26 08/23/2019 12:31 PM AIR TRAFFIC CONTROL OPERATOR Oxygen Saturation 98% 08/23/2019 12:31 PM AIR TRAFFIC CONTROL OPERATOR Inhaled Oxygen Concentration - - Weight 36.9 kg (81 lb 7 oz) 08/23/2019 7:36 AM AIR TRAFFIC CONTROL OPERATOR Height 144.8 cm (4' 9") 08/23/2019 7:36 AM AIR TRAFFIC CONTROL OPERATOR Body Mass Index 17.62 08/23/2019 7:36 AM AIR TRAFFIC CONTROL OPERATOR Plan of Treatment Health Maintenance Due Date Last Done Comments BREAST CANCER SCREENING 12/23/1993 COLONOSCOPY SCREENING 12/23/1993 SHINGLES VACCINES (#1) 12/23/1993 65+ PNEUMOCOCCAL VACCINE (2 of 2 - PPSV23) 12/23/200806/29 INFLUENZA VACCINE 01/28/2020 05/11/2019, 03/18/2017 Procedures Procedure Name Priority Date/Time Associated Diagnosis Comme nts CV RIGHT HEART CATH Routine 08/23/2019 11:16 Primary pulmonary Results for this AM AIR TRAFFIC CONTROL OPERATOR hypertension (HCC) procedure are in the results section. HC COMPLETE BLD COUNT STAT 08/23/2019 8:10 Re sults for this W/AUTO DIFF AM AIR TRAFFIC CONTROL OPERATOR procedure are i n the results section. POC PANEL Routine 08/23/2019 8:09 Results for this AM AIR TRAFFIC CONTROL OPERATOR procedure are i n the results section. ESTIMATED GFR Routine 08/23/2019 8:09 Results fo r this AM AIR TRAFFIC CONTROL OPERATOR procedure are i n the results section. ESTIMATED GFR Routine 07/15/2019 5:05 Results fo r this AM AIR TRAFFIC CONTROL OPERATOR procedure are i n the results section. PHOSPHORUS LEVEL Routine 07/15/2019 5:05 Results for this AM AIR TRAFFIC CONTROL OPERATOR procedure are i n the results section. MAGNESIUM LEVEL Routine 07/15/2019 5:05 Results for this AM AIR TRAFFIC CONTROL OPERATOR procedure are i n the results section. BASIC METABOLIC PANEL Routine 07/15/2019 5:05 Re sults for this AM AIR TRAFFIC CONTROL OPERATOR procedure are i n the results section. HC COMPLETE BLD COUNT Routine 07/15/2019 5:05 Re sults for this W/AUTO DIFF AM AIR TRAFFIC CONTROL OPERATOR procedure are i n the results section. CT CHEST WO CONTRAST Routine 07/14/2019 3:27 Res ults for this PM AIR TRAFFIC CONTROL OPERATOR procedure are i n the results section. CT SOFT TISSUE NECK WO Routine 07/14/2019 3:26 R esults for this CONTRAST PM AIR TRAFFIC CONTROL OPERATOR procedure are i n the results section. PARTIAL THROMBOPLASTIN Routine 07/14/2019 7:00 R esults for this TIME (PTT) AM AIR TRAFFIC CONTROL OPERATOR procedure are i n the results section. PARTIAL THROMBOPLASTIN STAT 07/14/2019 6:47 R esults for this TIME (PTT) AM AIR TRAFFIC CONTROL OPERATOR procedure are i n the results section. PROTHROMBIN TIME WITH STAT 07/14/2019 6:47 Re sults for this INR AM AIR TRAFFIC CONTROL OPERATOR procedure are i n the results section. ESTIMATED GFR Routine 07/14/2019 6:47 Results fo r this AM AIR TRAFFIC CONTROL OPERATOR procedure are i n the results section. BASIC METABOLIC PANEL Routine 07/14/2019 6:47 Re sults for this AM AIR TRAFFIC CONTROL OPERATOR procedure are i n the results section. HC COMPLETE BLD COUNT Routine 07/14/2019 6:47 Re sults for this W/AUTO DIFF AM AIR TRAFFIC CONTROL OPERATOR procedure are i n the results section. GRAM STAIN Routine 07/13/2019 4:30 Results for this PM AIR TRAFFIC CONTROL OPERATOR procedure are i n the results section. SPUTUM CULTURE Routine 07/13/2019 4:30 Results f or this PM AIR TRAFFIC CONTROL OPERATOR procedure are i n the results section. POC GLUCOSE Routine 07/13/2019 12:33 Results for this PM AIR TRAFFIC CONTROL OPERATOR procedure are i n the results section. TTE COMPLETE, WO STAT 07/13/2019 8:40 Results for this CONTRAST, W DOPPLER AM AIR TRAFFIC CONTROL OPERATOR procedur e are in ([id number]) the results section. POC GLUCOSE Routine 07/13/2019 7:48 Results for this AM AIR TRAFFIC CONTROL OPERATOR procedure are i n the results section. ESTIMATED GFR STAT 07/13/2019 5:30 Results fo r this AM AIR TRAFFIC CONTROL OPERATOR procedure are i n the results section. THYROID STIMULATING Routine 07/13/2019 5:30 Resu lts for this HORMONE AM AIR TRAFFIC CONTROL OPERATOR procedure are i n the results section. LACTIC ACID LEVEL STAT 07/13/2019 5:30 Result s for this AM AIR TRAFFIC CONTROL OPERATOR procedure are i n the results section. B NATRIURETIC PEPTIDE STAT 07/13/2019 5:30 Re sults for this AM AIR TRAFFIC CONTROL OPERATOR procedure are i n the results section. COMPREHENSIVE STAT 07/13/2019 5:30 Results fo r this METABOLIC PANEL AM AIR TRAFFIC CONTROL OPERATOR procedure ar e in the results section. HC COMPLETE BLD COUNT STAT 07/13/2019 5:30 Re sults for this W/AUTO DIFF AM AIR TRAFFIC CONTROL OPERATOR procedure are i n the results section. POC GLUCOSE Routine 07/13/2019 4:49 Results for this AM AIR TRAFFIC CONTROL OPERATOR procedure are i n the results section. POC GLUCOSE Routine 07/13/2019 1:47 Results for this AM AIR TRAFFIC CONTROL OPERATOR procedure are i n the results section. TROPONIN Timed 07/12/2019 10:08 Results for this PM AIR TRAFFIC CONTROL OPERATOR procedure are i n the results section. ARTERIAL BLOOD GAS STAT 07/12/2019 9:12 Resul ts for this PM AIR TRAFFIC CONTROL OPERATOR procedure are i n the results section. URINE CULTURE STAT 07/12/2019 6:15 Results fo r this PM AIR TRAFFIC CONTROL OPERATOR procedure are i n the results section. LACTIC ACID LEVEL Timed 07/12/2019 6:08 Result s for this PM AIR TRAFFIC CONTROL OPERATOR procedure are i n the results section. TROPONIN Timed 07/12/2019 6:08 Results for this PM AIR TRAFFIC CONTROL OPERATOR procedure are i n the results section. URINALYSIS SCREEN AND STAT 07/12/2019 6:08 Re sults for this MICROSCOPY, WITH PM AIR TRAFFIC CONTROL OPERATOR procedure a re in REFLEX TO CULTURE the result s section. RESPIRATORY PATHOGEN Routine 07/12/2019 4:56 Res ults for this PANEL PM AIR TRAFFIC CONTROL OPERATOR procedure are i n the results section. XR CHEST 1 VW PORTABLE STAT 07/12/2019 4:15 R esults for this PM AIR TRAFFIC CONTROL OPERATOR procedure are i n the results section. BLOOD CULTURE, AEROBIC Routine 07/12/2019 3:31 R esults for this & ANAEROBIC PM AIR TRAFFIC CONTROL OPERATOR procedure are i n the results section. ARTERIAL BLOOD GAS STAT 07/12/2019 3:30 Resul ts for this PM AIR TRAFFIC CONTROL OPERATOR procedure are i n the results section. LACTIC ACID LEVEL STAT 07/12/2019 3:30 Result s for this PM AIR TRAFFIC CONTROL OPERATOR procedure are i n the results section. ECG ED PRELIMINARY Routine 07/12/2019 3:12 Resul ts for this INTERPRETATION PM AIR TRAFFIC CONTROL OPERATOR procedure are in the results section. ESTIMATED GFR STAT 07/12/2019 2:55 Results fo r this PM AIR TRAFFIC CONTROL OPERATOR procedure are i n the results section. B NATRIURETIC PEPTIDE STAT 07/12/2019 2:55 Re sults for this PM AIR TRAFFIC CONTROL OPERATOR procedure are i n the results section. TROPONIN STAT 07/12/2019 2:55 Results for this PM AIR TRAFFIC CONTROL OPERATOR procedure are i n the results section. COMPREHENSIVE STAT 07/12/2019 2:55 Results fo r this METABOLIC PANEL PM AIR TRAFFIC CONTROL OPERATOR procedure ar e in the results section. HC COMPLETE BLD COUNT STAT 07/12/2019 2:55 Re sults for this W/AUTO DIFF PM AIR TRAFFIC CONTROL OPERATOR procedure are i n the results section. ECG 12-LEAD STAT 07/12/2019 2:47 Results for this PM AIR TRAFFIC CONTROL OPERATOR procedure are i n the results section. BONE DENSITY Routine 04/19/2019 1:21 Age-related Results for this PERIPHERAL PM CDT osteoporosis without procedu re are in current pathological the res ults fracture section. BONE DENSITY Routine 04/19/2019 1:20 Age-related Results for this PM CDT osteoporosis without procedu re are in current pathological the res ults fracture section. after 11/22/2018 Results matlab developer procedure (08/23/2019 11:16 AM AIR TRAFFIC CONTROL OPERATOR) Specimen Narrative Performed At This result has an attachment that is no t available. INTERVENTIONAL CARDIOLOGY PROCEDURE NOTE HM SYNGO [ Lopez Luz MD | Kari Carmona MD | Cullen guzman MD ] PATIENT:Seema Romo, MR#:[id number], :[birth year] DATE OF SERVICE:08/23/2019 Pre-Procedure Diagnosis:Pulmonary HTN Post-Procedure Diagnosis:moderate Pulm HTN Procedure Performed: - Right heart catheterization (RHC) - Ultrasound access:RIJ - Monitoring under moderate [id number] minutes Varnish Dipper:Sukh Anesthesia/Sedation:Moderate Sedation (IV Versed and IV Fentanyl) Specimens: None Estimated Blood Loss:1 mL Iodinated Contrast:none mL Blood Administered:None Grafts or Implants:None Complications:None Hemodynamic / oximetric Findings: Right atrium:2mm Hg (mean) Right ventricle:56/4 RVEDP 4 Pulmonary artery:56/93ceim04em Hg Wedge:4mm Hg Pulmonary artery saturation:72% Systemic artery saturation:96% Cardiac output / index (Estimated Caitlyn):3.08/2.5 1 PVR 9.74 PERDUE Plan / Recommendations: Severe PVR ~ 10 PERDUE Will discuss with Dr. Herrera. Thank you for the opportunity romero of assistance. Pl ease call if questions arise. Lopez Lu[facility] Clinical and Interventional Cardiology Office: ; Answering Service: Pager: [phone] Performing Organization Address City/State/Zipcode Phone Number [employer] [address] [place] [address], CBC with platelet and differential (08/23/2019 8:10 AM AIR TRAFFIC CONTROL OPERATOR)Only the most recent of5 resultswithin the time period is included. WBC 7.49 4.50 - 11.00 [facility] k/uL [facility] RBC 3.94 (L) 4.20 - 5.50 [facility] HGB 11.9 (L) 12.0 - 16.0 [facility] g/dL [facility] HCT 37.4 37.0 - 47.0 % [facility] MCV 94.9 82.0 - 100.0 [facility] MCH 30.2 27.0 - 34.0 pg [facility] MCHC 31.8 31.0 - 37.0 [facility] g/dL [facility] RDW - SD 49.2 37.0 - 55.0 fL [facility] MPV 9.8 8.8 - 13.2 fL [facility] Platelet count 233 150 - 400 k/uL [facility] Nucleated RBC 0.00 /100 WBC [facility] Neutrophils 50.9 39.0 - 69.0 % [facility] Lymphocytes 32.2 25.0 - 45.0 % [facility] Monocytes 11.7 (H) 0.0 - 10.0 % [facility] Eosinophils 3.2 0.0 - 5.0 % [facility] Basophils 1.7 (H) 0.0 - 1.0 % [facility] Immature granulocytes 0.3Comment: 0.0 - 1.0 % [facility] "Immature HOSPITAL granulocytes" (promyelocytes , myelocytes, metamyelocytes ) Specimen Blood Performing Organization Address City/[facility]/Zipcode Phone Number [facility] DEPARTMENT OF PATHOLOGY AND [address] [place] [address] [phone] [address] Estimated GFR (08/23/2019 8:09 AM AIR TRAFFIC CONTROL OPERATOR)Only the most recent of5 resultswithin the time period is included. [facility] Estimated GFR 89 mL/min/1.73 [facility] Comment: m2 HOSPITAL Catergory Units Interpretation G1 [...] in 2014. Specimen Blood Performing Organization Address [facility] Centercode Phone Number [facility] DEPARTMENT OF PATHOLOGY AND [address] [place] [address] [phone] [address] POC panel (08/23/2019 8:09 AM AIR TRAFFIC CONTROL OPERATOR) [facility] POC sodium 141 135 - 148 [facility] mmol/L [facility] POC potassium 4.2 3.5 - 5.0 [facility] mmol/L [facility] POC chloride 102 99 - 109 [facility] mmol/L [facility] POC CO2 31 24 - 31 mmol/L [facility] POC glucose 91 65 - 99 mg/dL [facility] POC BUN 9 8 - 24 mg/dL [facility] POC creatinine 0.6 0.5 - 0.9 [facility] mg/dl [facility] POC hematocrit 39 37 - 47 % [facility] POC anion gap 13 8 - 20 mmol/L [facility] Comment: HOSPITAL Outside Upholsterer Name: Octavio Genesis Device ID: [id number] Specimen Performing Organization Address City/[facility]/Zipcode Phone Number [facility] DEPARTMENT OF PATHOLOGY AND [address] [place] [address] [phone] [address] Phosphorus level (07/15/2019 5:05 AM AIR TRAFFIC CONTROL OPERATOR) Pathologist Sig nature Phosphorus 3.4 2.4 - 4.5 mg/dL [facility] Specimen Plasma specimen Performing Organization Address City/[facility] Phone Number [facility] DEPARTMENT OF PATHOLOGY AND [address] [place] [address] [place] [phone] Magnesium level (07/15/2019 5:05 AM AIR TRAFFIC CONTROL OPERATOR) Pathologist Sig nature Magnesium 2.1 1.6 - 2.4 mg/dL [facility] Specimen Plasma specimen Performing Organization Address [facility] Phone Number [facility] DEPARTMENT OF PATHOLOGY AND [address] [place] [phone] Basic metabolic panel (07/15/2019 5:05 AM AIR TRAFFIC CONTROL OPERATOR)Only the most recent of2 results within the time period is included. Pathologist Sig nature Sodium 142 135 - 148 mEq/L [facility] Potassium 4.7 3.5 - 5.0 mEq/L [facility] Chloride 107 98 - 112 mEq/L [facility] CO2 28 24 - 31 mEq/L [facility] Anion gap 7@ANIO 7 - 15 mEq/L [facility] BUN 10 8 - 23 mg/dL [facility] Creatinine 0.70 0.50 - 0.90 mg/dL [facility] Glucose 91 65 - 99 mg/dL [facility] Calcium 8.8 8.8 - 10.2 mg/dL [facility] Specimen Plasma specimen Performing Organization Address [facility] Phone Number [facility] DEPARTMENT OF PATHOLOGY AND [address] [place] [address] Chest Wo Contrast (07/14/2019 3:27 PM AIR TRAFFIC CONTROL OPERATOR) Specimen Narrative Performed At EXAMINATION: CT CHEST WO CONTRAST [facility] CLINICAL HISTORY: Acute resp illness > [...] abdome n do not demonstrate any masses. [facility]-[id number] Procedure Note Interface, Radiology Results Incoming - 07/14/2019 3:53 PM AIR TRAFFIC CONTROL OPERATOR EXAMINATION: CT CHEST WO CONTRAST CLINICAL HISTORY: [...] abdome n do not demonstrate any masses. [facility]-[id number] Performing Organization Address City/State/Zipcode Phone Number [facility] [address] [place] [address] CT Soft Tissue Neck Wo Contrast (07/14/2019 3:26 PM AIR TRAFFIC CONTROL OPERATOR) Specimen Narrative Performed At EXAMINATION: CT SOFT TISSUE NECK WO CO NTRAST [facility] CLINICAL HISTORY: Palpable nodule or thyroid [...] sinuses and mastoid air cells are clear. Rsos ateral intraocular lens implants. Bones and soft tissues wi thout acute abnormality Severe centrilobular emphysema in the vi sualized lungs bilaterally. IMPRESSION: Circumscribed 10 mm mass that is hyperdense similar to thyroid tissue anterior to the left hyoid bone, compati ble with ectopic thyroid. [id number] Dictated and approved by resident engineer/fellow: Haja Whyte M.D. I, Dimitri Forte MD, personally reviewed the images and resident's/fellow's findings and agree with the final report. Procedure Note Hm Interface, Radiology Results Incoming - 07/14/2019 4:32 PM AIR TRAFFIC CONTROL OPERATOR EXAMINATION: CT SOFT TISSUE NECK WO CONTRAST [...] left hyoid bone, compatible with ectopic thyroid. [id number] Dictated and approved by radiology resid ent/fellow: Beba Whyte M.D. I, Dimitri Forte MD, personally reviewed t he images and resident's/fellow's findings and agree with the final report. Performing Organization Address City/[facility]/Zipcode Phone Number [facility] [address] [place] [phone] Partial thromboplastin time, activated (07/14/2019 7:00 AM AIR TRAFFIC CONTROL OPERATOR)Only the most recent of2 resultswithin the time period is included. PTT 32.2 23.0 - 36.0 [facility] MU-ISM Comment: [facility] PTT therapeutic range for unfractionated heparin is 61.0-112.0 seconds which corresponds to Anti-Xa 0.3-0.7 U/ml. Specimen Blood Performing Organization Address [facility] Centercode Phone Number [facility] DEPARTMENT OF PATHOLOGY AND [address] [place] [address] [phone] [address] Prothrombin time with INR (07/14/2019 6:47 AM AIR TRAFFIC CONTROL OPERATOR) Prothrombin time 12.7 11.5 - 14.5 [facility] INR 1.0 [facility] Comment: MU-ISM The International Normalized Ratio (INR) is a [facility] monitoring tool for patients who are stable on oral anticoagulant therapy. An INR of 2.0-3.0 is suggested for deep vein thrombosis/pulmonary embolism. Specimen Blood Narrative Performed At PTT added and read back to Malissa Reyes [facility] DEPARTMEN T OF PATHOLOGY AND GENOMIC in FMIC 07/14/2019 06:59 LMID. MEDICINE Performing Organization Address [facility]/Zipcode Phone Number [facility] DEPARTMENT OF PATHOLOGY AND [address] [place] [address] [phone] [address] Sputum culture (07/13/2019 4:30 PM AIR TRAFFIC CONTROL OPERATOR) Sputum culture Normal oral yenni isolated. [facility] HODALYSIA isolate Comment: HOSPITAL Specimen Information Specimen Source: Sputum Specimen Site: Expectorated Specimen Sputum - Expectorated Performing Organization Address City/State/Zipcode Phone Number [facility] DEPARTMENT OF PATHOLOGY AND [address] [place] [phone] Gram stain (07/13/2019 4:30 PM AIR TRAFFIC CONTROL OPERATOR) Gram stain isolate Few WBC's [facility] Few Gram positive cocci in clusters [facility] Many Gram positive cocci in chains Comment: Specimen Information Specimen Source: Sputum Specimen Site: Expectorated Specimen Sputum - Expectorated Performing Organization Address City/State/Zipcode Phone Number [facility] DEPARTMENT OF PATHOLOGY AND [address] [place] [phone] POC glucose (07/13/2019 12:33 PM AIR TRAFFIC CONTROL OPERATOR)Only the most recent of4 resultswithin the time period is included. Pathologist Sig nature POC glucose 82 65 - 99 mg/dL [facility] Comment: HOSPITAL Outside Upholsterer Name: Karel Diego Device ID: [id number] Chartable: [facility] Notified RN Specimen Performing Organization Address City/State/Zipcode Phone Number [facility] DEPARTMENT OF PATHOLOGY AND [address] [place] [phone] Echocardiogram complete w contrast and 3D if needed (07/13/2019 8:40 AM AIR TRAFFIC CONTROL OPERATOR) Specimen Narrative Performed At [facility] Echo cardiography Report [address] [place] [address] Pat.Name: NOEMI SEEMA Hardy Pat.ID: [id number] .Date: 07/13/2019 Refer.MD: GORDON FENG MD Exam Time: 6:18:00 AM Study Type:R outine Echo Height: 57in Weight: 81lb BSA: 1.23 m2 Ag e: 1945,73Y Sex: FEMALE BP: 85/49 HR: 73 bpm Sonogr phr: Naty Hale RDCS Pat. Stat.:Inpatient Room: IJQU893-18 Study Status:Final Echo Event ID:[id number] Order ID: [id number] Reason for Study:H/o Pulmonary hypertens ion, RA [...] of 5 mmHg. MEASUREMENTS: 2D Parasternal Long Jackson Ao An 2 cm LVPWd 0.74 cm [...] Radiology Results In - 2019 9:15 AM [facility] Echocardiography Report [address] [place] [address] Pat.Name: SEEMA ROMO Pat.I D: [id number] .Date: 07/13/2019 Refer.MD: GORDON FENG MD Exam Time: 6:18:00 AM Study Type:Routine Echo Height: 57in Weigh t: 81lb BSA: 1.23 m2 Age: 4 1945,73Y Sex: FEMALE BP: 85/49 HR: 73 bpm Sonog rphr: Naty Hale RDCS Pat. Stat.:Inpatient Room: [id number] Study Status:Final Echo Event ID:[id number] Order ID: [id number] Reason for Study:H/o Pulmonary hypertens ion, RA [...] of 5 mmHg. MEASUREMENTS: 2D Parasternal Long Jackson Ao An 2 cm LVPW d 0.74 [...] AM Dawit Holland MD Performing Organization Address City/[facility]/Zipcode Phone Number [facility] [address] [place] [phone] Thyroid stimulating hormone (07/13/2019 5:30 AM AIR TRAFFIC CONTROL OPERATOR) Pathologist Sig nature TSH 0.51 0.27 - 4.20 uIU/mL [facility] Specimen Plasma specimen Performing Organization Address [facility] Phone Number [facility] DEPARTMENT OF PATHOLOGY AND [address] [place] [phone] B natriuretic peptide (07/13/2019 5:30 AM AIR TRAFFIC CONTROL OPERATOR)Only the most recent of2 results within the time period is included. Pathologist Sig nature BNP 153 (H) 0 - 100 pg/mL [facility] Specimen Blood Performing Organization Address [facility] Phone Number [facility] DEPARTMENT OF PATHOLOGY AND [address] [place] [address] [place] [phone] Lactic acid level (07/13/2019 5:30 AM AIR TRAFFIC CONTROL OPERATOR)Only the most recent of3 results within the time period is included. Pathologist Sig nature Lactic acid 1.0 0.5 - 2.2 mmol/L [facility] Specimen Plasma specimen Performing Organization Address [facility] Centercomn Phone Number [facility] DEPARTMENT OF PATHOLOGY AND [address] [place] [phone] Comprehensive metabolic panel (07/13/2019 5:30 AM AIR TRAFFIC CONTROL OPERATOR)Only the most recent of2 resultswithin the time period is included. Sodium 140 135 - 148 [facility] mEq/L [facility] Potassium 4.5 3.5 - 5.0 [facility] mEq/L [facility] Chloride 106 98 - 112 mEq/L [facility] CO2 24 24 - 31 mEq/L [facility] Anion gap 10@ANIO 7 - 15 mEq/L [facility] BUN 14 8 - 23 mg/dL [facility] Creatinine 0.67 0.50 - 0.90 [facility] mg/dL HOSPITAL Glucose 143 (H) 65 - 99 mg/dL [facility] Calcium 8.5 (L) 8.8 - 10.2 [facility] mg/dL [facility] Protein 6.3 6.3 - 8.3 g/dL [facility] Comment: HOSPITAL Ueiqnrj1940.6-7.0 g/dL 1 xudx0984.4-7.6 g/dL 7 months-2fdmm506.1-7.3 g/dL 1-2 gorfg016.6-7.5 g/dL >3 aoxbd308.0-8.0 g/dL 18-8350646.3-8.3 g/dL Albumin 3.0 (L) 3.5 - 5.0 g/dL [facility] A/G ratio 0.9 0.7 - 3.8 [facility] Alkaline phosphatase 78 35 - 104 U/L [facility] AST 14 10 - 35 U/L [facility] ALT 19 5 - 50 U/L [facility] Total bilirubin <0.2 0.0 - 1.2 [facility] mg/dL [facility] Specimen Plasma specimen Performing Organization Address City/State/Zipcode Phone Number [facility] DEPARTMENT OF PATHOLOGY AND [address] [place] [address] GENOMIC MEDICINE [address] [address] Troponin (07/12/2019 10:08 PM AIR TRAFFIC CONTROL OPERATOR)Only the most recent of3 resultswithin the time period is included. [facility] Troponin 0.011 0.000 - 0.040 [facility] Comment: ng/mL HOSPITAL In patients suspected of [...] ng/mL Specimen Plasma specimen Performing Organization Address [facility] Phone Number [facility] DEPARTMENT OF PATHOLOGY AND [address] [place] [address] Arterial blood gas (07/12/2019 9:12 PM AIR TRAFFIC CONTROL OPERATOR)Only the most recent of2 results within the time period is included. [facility] pH, arterial 7.41 7.35 - 7.45 [facility] pCO2, arterial 38 35 - 45 mmHg [facility] pO2, arterial 77 (L) 80 - 90 mmHg [facility] Bicarbonate, 23.6 21.0 - 28.0 [facility] arterial mmol/L HOSPITAL Base excess, 0 -2 - 2 mEq/L [facility] O2 saturation, 95 95 - 100 % [facility] Specimen Blood Performing Organization Address [facility] Phone Number [facility] DEPARTMENT OF PATHOLOGY AND [address] [place] [address] 0 [place] [phone] Urine culture (07/12/2019 6:15 PM AIR TRAFFIC CONTROL OPERATOR) [facility] Urine culture SEE COMMENTComment: [facility] Bacteriuria screen HOSPITAL negative. Specimen Performing Organization Address City/[facility]/Zipcode Phone Number [facility] DEPARTMENT OF PATHOLOGY AND [address] [place], [place] [address] [address] Urinalysis screen and microscopy, with reflex to culture (07/12/2019 6:08 PM AIR TRAFFIC CONTROL OPERATOR) Specimen site Clean catch [facility] Color, UA Yellow [facility] Appearance, UA Clear [facility] Specific gravity, UA 1.019 1.001 - 1.035 [facility] pH, UA 6.0 5.0 - 8.5 [facility] Protein, UA Negative Negative [facility] Glucose, UA Negative Negative [facility] Ketones, UA Negative Negative [facility] Bilirubin, UA Negative Negative [facility] Blood, UA Negative Negative [facility] Nitrite, UA Negative Negative [facility] Urobilinogen, UA <2.0 <2.0 [facility] Leukocyte esterase, Negative Negative [facility] Epithelial cells, UA 1 /HPF [facility] WBC, UA <1 0 - 4 /HPF [facility] RBC, UA <1 0 - 5 /HPF [facility] Bacteria, UA Few None seen [facility] Yeast, UA None seen [facility] Yeast with None seen [facility] pseudohyphae, [facility] Hyaline casts, UA 4 /LPF [facility] Specimen Urine Performing Organization Address City/[facility]/Zipcode Phone Number [facility] DEPARTMENT OF PATHOLOGY AND [address] [place], [place] [address] [address] Respiratory pathogen panel (07/12/2019 4:56 PM AIR TRAFFIC CONTROL OPERATOR) Respiratory Positive for Rhinovirus/Enterovirus [facility] pathogen panel MU-ISM Negative for all other pathogens tested: HOSPITAL [...] Specimen Nares - Left Performing Organization Address City/[facility] Phone Number [facility] DEPARTMENT OF PATHOLOGY AND [address] [place], [place] [address] GENOMIC MEDICINE [address] [address] XR Chest 1 Vw Portable (07/12/2019 4:15 PM AIR TRAFFIC CONTROL OPERATOR) Specimen Narrative Performed At EXAMINATION: XR CHEST 1 VW [facility]ABLE [facility] CL[facility]ICAL [facility]: sob COMPARISON: CT chest 08/09/2018. Chest radiograph 11/15/2017 IMPRESSION: Prominent emphysematous changes are unchanged from the prior radiograph and better seen on prior CT. No focal consolidation or large pleural effusion. Normal cardiomediastinal silhouette. Interval angulated right sixth posterior rib fracture appears to be chronic, correlate with exam.. Procedure Note Interface, Radiology Results Incoming - 07/12/2019 4:22 PM AIR TRAFFIC CONTROL OPERATOR EXAMINATION: XR CHEST 1 VW PORTABLE CLINICAL HISTORY: sob COMPARISON: CT chest 08/09/2018. Chest r adiograph 11/15/2017 IMPRESSION: Prominent emphysematous changes are unch anged from the prior radiograph and better seen on prior CT. No focal consolidation or large pleural effusion. Normal cardiomediastinal silhouette. Interval angulated right sixth posterior rib fracture appears to be chronic, correlate with exam.. Performing Organization Address City/[facility]/Zipcode Phone Number [facility] [address] [place] [address] Blood culture, aerobic & anaerobic (07/12/2019 3:31 PM AIR TRAFFIC CONTROL OPERATOR) Blood culture No growth after 5 days of incubation. HO TON MU-ISM isolate Comment: HOSPITAL Specimen Information Specimen Source: Blood Specimen Site: Antecubital Left Specimen Blood Performing Organization Address City/State/Zipcode Phone Number [facility] DEPARTMENT OF PATHOLOGY AND [address] [place], [place] [address] GENOMIC MEDICINE [facility] [address] [place] [address] ECG ED Preliminary Interpretation - Not an Order (07/12/2019 3:12 PM AIR TRAFFIC CONTROL OPERATOR) Narrative Performed At Jordan Craig MD 08/14/2019 9:51 AM ECG ED Preliminary Interpretation - Not an Order Performed by: Jordan Craig MD Authorized by: Jordan Craig MD ECG reviewed by ED Physician in the abse nce of a research hydraulic engineer: yes Interpretation: Interpretation: abnormal Rate: ECG rate: 111 ECG rate assessment: tachycardic Rhythm: Rhythm: sinus tachycardia QRS: QRS axis: Left QRS intervals: Normal ST segments: ST segments: Normal Comments: Poor baseline. ECG 12 lead (07/12/2019 2:47 PM AIR TRAFFIC CONTROL OPERATOR) Pathologist Sig nature Ventricular rate 111 [facility] Atrial rate 111 [facility] MI interval 130 [facility] QRSD interval 82 [facility] QT interval 328 [facility] QTC interval 446 [facility] P axis 1 87 [facility] QRS axis 1 270 [facility] T wave axis 7 [facility] EKG impression Sinus tachycardia-Left [facility] MUSE axis deviation-Low voltage QRS-Cannot rule out Anterior infarct , age undetermined-Abnormal ECG-No previous ECGs available-Electronicall y Signed By Gracie Barragan MD ([id number]) on 07/12/2019 6:36:46 PM Specimen Narrative Performed At This result has an attachment that is no t available. Performing Organization Address City/[facility]/Zipcode Phone Number [facility] [address] [place] [address] Bone Density Peripheral (04/19/2019 1:21 PM CDT) [...] effect of treatments on patient over time. [facility]-[id number] Procedure Note Interface, Radiology Results Incoming - [...] effect of treatments on patient over time. [facility]-[id number] [facility] Organization Address City/State/Zipcode Phone Number [facility] [address] [place] [address] Bone Density (04/19/2019 1:20 PM CDT) Specimen [...] effect of treatments on patient over time. [facility]-[id number] Procedure Note Hm Interface, Radiology Results Incoming - 04/19/2019 1:26 [...] effect of treatments on patient over time. 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
--- OUTSIDE RECORDS SUMMARY | 2019-11-23 23:35 | XMS REPORT | Clinical Summary ---
:1945 Author Organization [facility] Address [address] [place] [address] Care Team Providers Name Role Phone CrawfordJose [...] Encounters Date Type Specialty Care Team Description 11/07/2019 Lab Requisition Lab 03/20/2019 - Hospital Encounter Cardiology Mj Alexander Acut e hypoxemic respiratory failure ([facility]); 03/23/2019 Acute exacerbation of chronic obstructiv e pulmonary disease (COPD) ([facility]) Maykel Bullock MD Heinen, Allison P., MD Changela, Kinjal M., MD 03/20/2019 Travel after 11/22/2018 Social History Tobacco Use Types Packs/Day Years [...] Procedure Name Priority Date/Time Associated Comments Diagnosis SARS-COV2/RT-PCR Routine 11/07/2019 4:39 Results for this ([facility] & REF LABS) PM CDT procedure are in the results section. RHYTHM STRIP - SCAN 03/25/2019 12:16 PM [...] Routine 03/21/2019 3:56 Result s for this [facility] PM CDT procedure are i n the [...] are i n the results section. after 11/22/2018 Results SARS-CoV2/RT-PCR ([facility] & Ref Labs) (11/07/2019 4:39 PM CDT) SARS-COV2/RT-PCR Not Detected Not Detected, Negative [facility] SARS-COV-2 PERFORMING LAB [facility] Specimen Other Narrative Performed At Negative results do not preclude SARS-CoV-2 [facility] infection and should not be used as the sole basis for patient management decisions. Negative results must be combined with clinical observations, patient history, and epidemiological information. A false negative result may occur if a specimen is improperly collected, transported or handled. The limit of detection for this assay is 250 copies/mL. This SARS CoV-2 test is a rapid, real-time RT-PCR test intended for the qualitative detection of nucleic acid from SARS-CoV-2 in a nasopharyngeal swab specimen collected from individuals suspected of COVID-19 by their healthcare provider. This test has not been Food and Drug Administration (FDA) cleared or approved and has been authorized by FDA under an Emergency Use Authorization (EUA). This EUA will be effective until the declaration that circumstances exist justifying the authorization of the emergency use of in vitro diagnostic tests for detection and/or diagnosis of COVID-19 is terminated under Section 564(b)(2) of the Act or the EUA is revoked under Section 564(g) of the Act. Fact Sheet for Healthcare Providers: https://www.[employer]/Documents/Xpert%20Xpre ss%20SARS%20CoV-2/Fact%20Sheets/3023802%20SAR S-COV-2%20HEALTHCARE%20PROVIDERS%20FACT%20SHEE T.pdf Fact Sheet for Healthcare Patients: https://www.[employer]/Documents/Xpert%20Xpre ss%20SARS%20CoV-2/Fact%20Sheets/3023801%20SAR S-COV-2%20PATIENT%20FACT%20SHEET.pdf Performing Laboratory: [address] [place] [address] Performing Organization Address City/State/Zipcode Phone Number [place] [phone] CENTER RHYTHM STRIP - SCAN (03/25/2019 12:16 PM CDT)Only the most recent of2 results within the time period is included. Narrative Performed At This result has an attachment that is no t available. Vancomycin level, trough (03/23/2019 9:05 AM CDT)Only the most recent of2 resultswithin the time period is included. Vancomycin Tr 11.9 10.0 - 20.0 ug/mL [facility] Specimen Blood Narrative Performed At Please draw 30 min prior to scheduled do se. [facility] If vancomycin trough level > 20 mcg/mL, hold next vancomycin dose, and contact MD and pharmacist. Performing Organization Address City/State/Zipcode Phone Number [facility] [address] [place] [address] CENTER CBC with platelet count + automated diff (03/23/2019 4:38 AM CDT)Only the most recent of4 resultswithin the time period is included. WBC 12.8 (H) 3.5 - 10.5 K/L [facility] RBC 3.65 (L) 3.93 - 5.22 M/L [facility] Hemoglobin 11.0 (L) 11.2 - 15.7 GM/DL [facility] Hematocrit 34.0 (L) 34.1 - 44.9 % [facility] MCV 93.2 79.4 - 94.8 fL [facility] MCH 30.1 25.6 - 32.2 pg [facility] MCHC 32.4 32.2 - 35.5 GM/DL [facility] RDW 14.2 11.7 - 14.4 % [facility] Platelets 253 150 - 450 K/CU MM [facility] MPV 9.6 9.4 - 12.3 fL [facility] nRBC 0 0 - 0 /100 WBC [facility] % Neutros 68 % [facility] % Lymphs 21 % [facility] % Monos 10 % [facility] % Eos 0 % [facility] % Baso 0 % [facility] # Neutros 8.68 (H) 1.56 - 6.13 K/L [facility] # Lymphs 2.66 1.18 - 3.74 K/L [facility] # Monos 1.33 (H) 0.24 - 0.36 K/L [facility] # Eos 0.04 0.04 - 0.36 K/L [facility] # Baso 0.01 0.01 - 0.08 K/L [facility] Immature Granulocytes-Relative 1 0 - 1 % C [facility] Specimen Blood Performing Organization Address City/[facility]/Zipcode Phone Number [address] [address] [place] Basic Metabolic Panel (03/23/2019 4:38 AM CDT)Only the most recent of4 results within the time period is included. Sodium 139 136 - 145 meq/L [facility] Potassium 3.8 3.5 - 5.1 meq/L [facility] Chloride 107 98 - 107 meq/L [facility] CO2 28 22 - 29 meq/L [facility] BUN 14 7 - 21 mg/dL [facility] Creatinine 0.65 0.57 - 1.25 mg/dL [facility] Glucose 97 70 - 105 mg/dL [facility] Calcium 8.5 8.4 - 10.2 mg/dL [facility] EGFR 89Comment: ESTIMATED GFR IS mL/min/1.73 sq m [facility] NOT ACCURATE CREATININE NE DICAL CENTER CLEARANCE IN PREDICTING GLOMERULAR FILTRATION RATE. ESTIMATED GFR IS NOT APPLICABLE FOR DIALYSIS PATIENTS. Specimen Blood Performing Organization Address City/State/Zipcode Phone Number [facility] [address] [place] [address] CENTER Respiratory Panel [facility] (03/21/2019 3:56 PM CDT) Human Metapneumovirus Not detected Not detected, [facility] Equivocal [facility] Rhinovirus Not detected Not detected, [facility] [employer] [facility] Influenza A Not detected Not detected, [facility] [employer] [facility] INFLUENZA A (NO SUBTYPE) [facility] Influenza A subtype H1 [facility] Influenza A Subtype H3 [facility] Influenza A Subtype H1-2009 [facility] Influenza B Not detected Not detected, [facility] [employer] [facility] Respiratory Syncytial Virus Not detected Not detected, [facility] [employer] [facility] Parainfluenza Virus 1 Not detected Not detected, [facility] [employer] [facility] Parainfluenza Virus 2 Not detected Not detected, [facility] [employer] [facility] Parainfluenza virus 3 Not detected Not detected, [facility] [employer] [facility] Parainfluenza Virus 4 Not detected Not detected, [facility] [employer] [facility] Adenovirus Not detected Not detected, [facility] [employer] [facility] Coronavirus 229E Not detected Not detected, [facility] EALTH [employer] [facility] Coronavirus HKU1 Not detected Not detected, [facility] [employer] [facility] Coronavirus NL63 Not detected Not detected, [facility] [employer] [facility] Coronavirus OC43 Not detected Not detected, [facility] [employer] [facility] Bordetella Pertussis Not detected Not detected, [facility] [employer] [facility] Chlamydophila Pneumoniae Not detected Not detected, [facility] [employer] [facility] Mycoplasma Pneumoniae Not detected Not detected, [facility] [employer] [facility] Specimen Nasopharyngeal Narrative Performed At Other viruses and bacteria not targeted by [facility] this PCR panel cannot be excluded; therefore clinical correlation and follow up of serology, culture results, and other molecular studies is required. The results are not intended to be used as the sole means for clinical diagnosis or patient management decisions. This sample was tested at the [facility] Molecular Diagnostics Laboratory using the [employer] FilmArray Respiratory Panel. It is FDA cleared and has been verified and approved by the [facility] Molecular Diagnostics [facility] for clinical use on nasopharyngeal swab specimens. The performance of the FilmArray RP has not been established in individuals who received influenza vaccine.Recent administration of a nasal influenza vaccine may cause false positive results for Influenza A and/or Influenza B. Performing Organization Address [facility] Phone Number [address] [address] [place] Sputum Culture + Gram Stain (03/20/2019 11:41 AM CDT) Result 4+ Pseudomonas aeruginosa (A) [facility] Gram Stain Result 4+ WBCs [facility] Gram Stain Result 0-5 epithelial cells [facility] Gram Stain Result No organisms seen [facility] Specimen Sputum - Expectorated Narrative Performed At 4+ Normal respiratory yenni present [facility] Organism Antibiotic Method Susceptibility Pseudomonas aeruginosa Amikacin [...] Tobramycin <=2: Susc eptible Performing Organization Address [facility] Phone Number [address] [address] CENTER Manual Differential (03/20/2019 8:43 AM CDT) % Neutros 92 % [facility] % Lymphs 3 % [facility] % Monos 3 % [facility] % Bands 2 0 - 10 % [facility] # Neutros 30.36 (H) 1.56 - 6.13 K/ul [facility] # Lymphs 0.99 (L) 1.18 - 3.74 K/ul [facility] # Monos 0.99 (H) 0.24 - 0.36 K/uL [facility] # Bands 0.66 0.00 - 0.80 K/uL [facility] Total Counted [address] [facility] RBC Morphology Normal [facility] WBC Morphology Normal [facility] Platelet Morphology Normal [facility] Artifact Present [facility] Platelet Conc Adequate [facility] Specimen Blood Narrative Performed At Received comment: [facility] User comments: Slide comments: Performing Organization Address City/State/Zipcode Phone Number [facility] [address] [place] [address] CENTER Strep pneumoniae antigen (03/20/2019 8:27 AM CDT) Strep pneumoniae Presumptive negative Presumptive negative [facility] Antigen for pneumococcal for pneumococcal [facility] pneumonia - see comment pneumonia - see CENTER comment, Presumptive negative for pneumococcal meningitis - see comment Specimen Urine Narrative Performed At Presumptive negative for pneumococcal [facility] pneumonia, suggesting no current or recent pneumococcal infection. Infection due to S. pneumoniae cannot be ruled out since the antigen present in the sample may be below the detection limit of the test. Performing Organization Address City/State/Zipcode Phone Number [place] [id number] [place] [address] [place] Legionella antigen, urine (03/20/2019 8:14 AM CDT) Legionella Urine Antigen Negative - see [facility] commentComment: Negative [facility] for L. pneumophila serogroup 1 antigen, suggesting no recent or current infection with this serogroup. Legionellosis cannot be ruled out since other serogroups and species may cause disease. Specimen Urine Performing Organization Address City/[facility]/Zipcode Phone Number [facility] [address] [place] [address] CENTER Creatinine (03/20/2019 6:42 AM CDT) Creatinine 0.78 0.57 - 1.25 mg/dL [facility] EGFR 72Comment: ESTIMATED GFR IS mL/min/1.73 sq m [facility] NOT ACCURATE CREATININE ME [facility] CLEARANCE IN PREDICTING GLOMERULAR FILTRATION RATE. ESTIMATED GFR IS NOT APPLICABLE FOR DIALYSIS PATIENTS. Specimen Blood Performing Organization Address City/[facility] Phone Number [facility] [address] [place] [address] CENTER after 11/22/2018 Insurance Payer Benefit Plan / Group Subscriber ID Type Phone A ddress MEDICARE MEDICARE A B xxxxxxxxxxx Medicare MCR SUPPLEMENT/INDIVIDUAL AARP/[facility] xxxxxxxxxxx [employer] Advance Directives For more information, please contact:[address] [phone] Code Status Date Activated Date Inactivated Comments Full Code 03/20/2019 6:18 AM 03/23/2019 4:07 PM This code status was determined by: Patient
--- OUTSIDE RECORDS SUMMARY | 2019-11-23 23:38 | XMS REPORT ---
:1945 Author Organization [facility] t Address [address] [place] [address] Care Team Providers Name Role Phone Larry_Alistair Primary Care Physician Unavailable Janusz Luz MD Attending Clinician Frankie Craig MD Attending Clinician Jung MEADOWS, T. Attending Clinician Jerardo Nunez MD Attending Clinician Kaye MEADOWS Attending Clinician Tariq MEADOWS, Not In Attending Clinician Unavailable Kevin FLETCHER Attending Clinician Unavailable Mariama MEADOWS Attending Clinician JANUSZ LUZ Attending Clinician Unavailable SHELBIE Admitting Clinician Unavailable JUNG Admitting Clinician Unavailable Cata MELISSA Admitting Clinician Unavailable JANUSZ LUZ Admitting Clinician Unavailable Payers Payer Name Policy Policy Number Effective Expiration Source Type Date Date MEDICAREMEDICARE PART xxxxxxxxxxx 2001 Valentin [place] AND 00:00:00 [place]xxx[place] [facility] [place] x[facility]xx 2008 [place] SUPPLEMENTxxxxxxxxxxx 00:00:00 Met becker 2008-Tari rcial Problems Condition Condition Condition Status Onset Resolution Last Treating Co mments Source Name Details Category Date Date Treatment Clinician Date Acute on Acute on Disease Active [place] chronic chronic 1-15 Methodi respirator respirator 00:00: st y failure y failure 00 with with hypoxemia hypoxemia Pulmonary Pulmonary Disease Active Marybel ston hypertensi hypertensi 1-15 Me thodi on on 00:00: st 00 Acute Acute Disease Active Bhakta bronchitis bronchitis 1-15 Me thodi due to due to 00:00: st Rhinovirus Rhinovirus 00 Acute Acute Disease Active Bhakta respirator respirator 1-14 Me thodi y distress y distress 00:00: st 00 Shoulder Shoulder Disease Active 2017-06 [place] arthritis arthritis 0-15 Meth haydee 00:00: st 00 Vitamin D Vitamin D Disease Active Marybel ston deficiency deficiency 5-10 Me thodi disease disease 00:00: st 00 H/O H/O Disease Active [place] Clostridiu Clostridiu 9-07 Me thodi m m 00:00: st difficile difficile 00 infection infection September - Jan Osteoporos Osteoporos Disease Active Overview : [place] is s/p is s/p 03-05 No Methodi RECLAST RECLAST 00:00: reactions st 12/2014, 12/2014, 00 during 04/2016, 04/2016, infusion 04/2017 but diarrhea Leg length Leg length Disease Active [place] difference difference 9-07 Me thodi , acquired , acquired 00:00: st 00 Scoliosis Scoliosis Disease Active Marybel ston 9-07 Methodi 00:00: st 00 Renal cyst Renal cyst Disease Active [place] s/p s/p 9- Methodi decorticat decorticat 00:00: st ion (L) ion (L) 00 complicate complicate d post op d post op 2004 2004 CAT CAT Disease Active Overview: Tasha n (mycobacte (mycobacte 03-05 2008 Left Methodi rium rium 00:00: tiffanie st avium-intr avium-intr 00 thoracoto acellulare acellulare my, upper ) ) lobectomy infection infection , lysis in 1998 in 1998 of s/p s/p pleural therapy. therapy. adhesions Reactivati Reactivati and on in 2005 on in mediastin s/p upper 2006 s/p al lymph left upper left node lobectomy lobectomy dissectio 2007 2007 n Abnormal Abnormal Disease Active Overview: Valentin chang CT scan, CT scan, 03-05 Caseating Met hodi chest chest 00:00: granuloma st 00 associate d with elastosis and calcifica tion, benign lung changes of fibrosis, mucous plugging, bronchiti s, emphysema and crystals consisten t with silicateB enign lymph node with anthracot ic pigment and crystals consisten t with silicate and LN with sinus histiocyt osis and anthracot ic pigment Leucocytoc Leucocytoc Disease Active [place] lastic lastic 03-05 Methodi vasculitis vasculitis 00:00: st 00 Herpes Herpes Disease Active Bhakta infection infection 03-05 Meth haydee on chronic on chronic 00:00: st valacyclov valacyclov 00 ir ir Shingles Shingles Problem [facility] Clin[facility] Age-relate Age-relate Problem Active [facility] - osteoporos osteoporos Me moria is without is without l current current [facility] pathologic pathologic en t al al Clinics fracture fracture Fatty Fatty Problem Active [facility] liver liver [facility] Depression Depression Problem Active [facility] with with [facility] - anxiety anxiety Memoria l [facility] ent Clinics Oxygen Oxygen Problem Active [facility] dependent dependent Luke s - Memoria [facility] Clinics Chronic Chronic Problem Active [facility] obstructiv obstructiv Radha kes - e e Memoria pulmonary pulmonary l disease, disease, Outpat i unspecifie unspecifie en t d COPD d COPD Clinics type type Seasonal Seasonal Problem Active [facility] allergies allergies Luke s - [facility] Clinics Secondary Secondary Diagnosis Active C [facility] pulmonary pulmonary Luke s - arterial arterial Memori a hypertensi hypertensi l on on Outpati ent Clinics Acute Acute Diagnosis Active [facility] exacerbati exacerbati Radha kes - on of on of Memoria chronic chronic l obstructiv obstructiv Ou tpati e e ent pulmonary pulmonary Clin ics disease disease (COPD) (COPD) Acute on Acute on Problem Active [facility] chronic chronic [facility] - respirator respirator Me moria y failure, y failure, l unspecifie unspecifie Ou tpati d whether d whether ent with with Clinics hypoxia or hypoxia or hypercapni hypercapni a a Left Left Problem Active [facility] thyroid thyroid [facility] - nodule nodule Memoria l Outpati ent Clinics Pulmonary Pulmonary Diagnosis Active C [facility] fibrosis fibrosis [facility] Clinics Generalize Generalize Diagnosis Active [facility] d anxiety d anxiety Luke s - disorder disorder Memori a l [facility] ent Clinics Current Current Diagnosis Active [facility] moderate moderate [facility] - episode of episode of Me moria major major l depressive depressive Ou tpati disorder disorder ent without without Clinics prior prior episode episode Panic Panic Problem Active [facility] disorder disorder [facility] - [episodic [episodic Allen jose paroxysmal paroxysmal l anxiety] anxiety] Outpat i ent Clinics Failure to Failure to Problem Active [facility] thrive in thrive in [facility] Allergies, Adverse Reactions, Alerts Allergy Allergy Status Severity Reaction(s) Onset Inactive Treating Comm ents Source Name Type Date Date Clinician Sulfa Propensi Active Swelling "break [place] (Sulfona ty to 12-04" Methodi mide adverse 00:00: st Antibiot reaction 00 ics) s to drug Bactrim Adverse Active Info Not [facility] DS Reaction Available [facility] ent Clin[facility] Family History Family Member Diagnosis Comments Start Date Stop Date Source Natural brother Leukemia [facility] ethodist Natural father Alcohol abuse [place] Christian Natural father Cirrhosis [facility] thodist Natural mother COPD [facility] thodist Natural sister COPD [facility] thodist Natural sister Endometriosis [place] Christian Natural sister Other [facility] thodist Social History Social Habit Start Date Stop Date Quantity Comments Source Sex Assigned At [facility] ethodist Alcohol intake 2019-09-12 2019-09-12 Current [facility] thodist 00:00:00 00:00:00 non-drinker of alcohol (finding) Alcohol Comment 2015-12-05 2015-12-05 stopped 2004 [place] Christian 00:00:00 00:00:00 Smoking Status Start Date Stop Date Source Former smoker 2019-09-12 00:00:00 2019-09-12 00:00:00 [facility] Medications Ordered Filled Start Stop Current Ordering Indication Dosage Frequency Signature Comments Components Source Medication Medication Date Date Medication? Clinician (SIG) Name Name Dulera Dulera Yes Refugio [address] 4-17 [place] [facility] - 00:00: Memoria 00 l [facility] ent Clinics albuterol Yes 2{puff} Q4H Inhale 2 [place] (PROAIR 2-25 puffs Methodi HFA,PROVENT 12:57: every 4 st [place] 52 (four) HFA,VENTOLI hours as N HFA) 90 needed for mcg/actuati wheezing on inhaler or shortness of breath. cholecalcif 2020-0 Yes 2000U QD Take 2,000 Bhakta loreto, 2-25 Units by Methodi vitamin D3, 12:57: mouth st (VITAMIN 52 daily. D3) 2,000 unit capsule capsule acyclovir 2020-0 Yes 200mg Q.5D Take 200 Marybel ston (ZOVIRAX) 2-25 mg by Methodi 200 MG 12:57: mouth 2 st capsule 52 (two) times a day. omega-3/dha 2020-0 Yes 1{capsu QD Take 1 [place] /epa/fish 2-25 le} capsule by Meth haydee oil 12:57: mouth st (OMEGA-3 52 daily. ORAL) TURMERIC 2020-0 Yes 500mg QD Take 500 [place] ORAL 2-25 mg by Methodi 12:57: mouth st 52 daily. guaiFENesin 2020-0 Yes 1{tbl} Q12H Take 1 [place] (MUCINEX) 2-25 tablet by Metho di 1,200 mg 12:57: mouth st tablet 52 every 12 extended (twelve) release hours. 12hr glucosamine 2020-0 Yes 1{tbl} QD Take 1 [place] sulfate 2-25 tablet by Methodi (GLUCOSAMIN 12:57: mouth st E ORAL) 52 daily. denosumab 2020-0 Yes 60mg Inject 60 Marybel ston (PROLIA) 60 2-25 mg under Meth haydee mg/mL 12:57: the skin. st syringe 52 Every 6 syringe months (next dose due in November 2019) albuterol 2020-0 Yes 2.5mg Q.5D Take 2.5 Marybel ston (ACCUNEB) 2-25 mg by Methodi 2.5 mg /3 12:57: nebulizati st mL (0.083 52 on 2 (two) %) times a nebulizer day. solution ambrisentan 2020-0 Yes 10mg QD Take 10 mg Bhakta (LETAIRIS) 2-25 by mouth Metho di 10 MG 12:57: daily. st tablet 52 acetaminoph 2020-0 Yes 1{tbl} Q6H Take 1 [place] en (TYLENOL 2-25 tablet by Met hodi ORAL) 12:57: mouth st 52 every 6 (six) hours as needed (for mild pain or fever). Lactobacill 2020- No 1{tbl} Q.[id number] Take 1 Bhakta 07-12 [id number] tablet by Met britney hinds-Hardy.b 15:42: 00:[address] ulgar 07 :00 (three) (FLORANEX) times a 1 million day. cell tablet acyclovir 2019- No Herpes TAKE 1 Marybel ston (ZOVIRAX) 01-03 infection CAPSULE BY Methodi 200 MG 00:00: 00:[address] capsule 00 :00 TIMES A DAY acyclovir 2018- No Herpes TAKE 1 Marybel ston (ZOVIRAX) 09-22 infection CAPSULE BY Methodi 200 MG 00:00: 00:[address] capsule 00 :00 TIMES A DAY denosumab 2017-06- No Osteoporosi 60mg Q180D [place] (PROLIA) 07-11 s, Methodi syringe 60 10:30: 22:[address] mg 00 :29 moris diclofenac 2017-06- No Q.5D Apply [place] (VOLTAREN) 07-12 topically Met britney 1 % gel 00:00: 00:00 2 (two) st 00 :00 times a day. montelukast Yes 10mg QD Take 10 mg Bhakta (SINGULAIR) 7-30 by mouth Meth haydee 10 mg 00:00: nightly. st tablet 00 ALPRAZolam Yes .5mg Q.[id number] Take 0.5 Bhakta (XANAX) 0.5 7-29 [id number] mg by M ethodi MG tablet 00:00: 3D mouth 3 st 00 (three) times a day as needed for anxiety or sleep. citalopram Yes 40mg QD Take 40 mg [place] (CeleXA) 40 7-21 by mouth Meth haydee MG tablet 00:00: daily. st 00 SYMBICORT Yes 2{puff} Q.5D Inhale 2 [place] 80-4.5 6-01 puffs 2 Methodi mcg/actuati 00:00: (two) st on inhaler 00 times a day. SPIRIVA 2016 Yes 2{puff} QD Take 2 [place] RESPIMAT 6-01 puffs by Methodi 2.5 00:00: mouth st mcg/actuati 00 daily. on mist Prolia Prolia Yes Refugio as [facility] directed [facility] Nasonex Nasonex Yes Refugio [address] [facility] in each Lukes - nostril Memoria l [facility] Clinics Seale 3 Seale 3 Yes Refugio [address] [facility] ProAir HFA ProAir HFA Yes Refugio [address] [facility] needed [facility] Albuterol Albuterol Yes Refugio [address] Sulfate Sulfate Crawford needed [facility] Questran Questran Yes Refugio [address] [place] mixed with Lukes - water or Memoria non-carbon l ated drink [facility] Xanax Xanax Yes Refugio [address] [facility] Letairis Letairis Yes Refugio [address] [facility] Glucosamine Glucosamine Yes Refugio [address] [facility] with a Lukes - meal Memoria l [facility] Vitamin D Vitamin D Yes Refugio [address] [facility] Citalopram Citalopram Yes Refugio [address] Hydrobromid Hydrobromid [facility] - e e [facility]oria l [facility] Claritin Claritin Yes Refugio [address] [facility] Mucinex Mucinex Yes Refugio [address] Maximum Maximum Crawford as needed Tonia es - Strength Strength Memoria l [facility]ics Acyclovir Acyclovir Yes Refugio [address] [facility] Montelukast Montelukast Yes Refugio TAKE [address] Sodium Sodium Crawford TABLET BY Lukes - MOUTH ONCE Memoria A DAY IN l THE Outpati EVENING ent Clinics Trelegy Trelegy Yes Refugio 1 puff [facility] Ellipta Ellipta [facility] Spiriva Spiriva 2019- No Refugio [address] Respimat Respimat 05-18 [facility] - 00:00 Memoria :00 l [facility] Clinics Symbicort Symbicort 2019- No Refugio [address] 05-18 [facility] - 00:00 Memoria :00 l [facility] ent Clinics Immunizations Ordered Filled Immunization Date Status Comments Sour e Immunization Name Name Prevnar 13 Prevnar 13 2019-05-[address] [facility] - -Pneumonia Vaccine -Pneumonia Vaccine 00:00:00 [facility] FLUZONE QUAD PF 2017-03-18 Completed Yony Velazquez ethodist 00:00:00 Vital Signs Vital Name Observation Time Observation Value Comments Source Systolic blood 2019-08-23 12:31:00 95 mm[Hg] Tasha n Christian pressure Diastolic blood 2019-08-23 12:31:00 46 mm[Hg] Umberto savage Christian pressure Heart rate 2019-08-23 12:31:00 90 /min Yony Lundberg Respiratory rate 2019-08-23 12:31:00 26 /min Stephanie Palmerist Oxygen saturation in 2019-08-23 12:31:00 98 /min Yony Lundberg Arterial blood by Pulse oximetry Body temperature 2019-08-23 11:39:00 36.5 Chelsey Stephanie Lundberg Body height 2019-08-23 07:36:00 144.8 cm Yony Lundberg Body weight 2019-08-23 07:36:00 36.94 kg Yony Lundberg BMI 2019-08-23 07:36:00 17.62 kg/m2 Yony Lundberg Procedures Procedure Date / Time Performing Clinician Source Performed CV RIGHT HEART CATH 2019-08-23 11:16:44 Lopez Luz HC COMPLETE BLD COUNT 2019-08-23 08:10:00 Lopez Luz on Christian W/AUTO DIFF Jamaluddin ESTIMATED GFR 2019-08-23 08:09:00 Lopez Luz Met rosita Garcia POC PANEL 2019-08-23 08:09:00 Lopez Luz Met rosita Garcia HC COMPLETE BLD COUNT 2019-07-15 05:05:00 Jean Pro Christian W/AUTO DIFF BASIC METABOLIC PANEL 2019-07-15 05:05:00 Jean Pro Christian MAGNESIUM LEVEL 2019-07-15 05:05:00 Jean Pro Christian PHOSPHORUS LEVEL 2019-07-15 05:05:00 Welch, Bishop Carlos Shipman on Christian ESTIMATED GFR 2019-07-15 05:05:00 Welch, Bishop Cordova n Christian CT CHEST WO CONTRAST 2019-07-14 15:27:13 Welch, Bishop Carlos landaverde Christian CT SOFT TISSUE NECK WO 2019-07-14 15:26:55 Welch, Bishopjake Bhakta Christian CONTRAST PARTIAL THROMBOPLASTIN 2019-07-14 07:00:00 Marsh, Irwin Tan [place] Christian TIME (PTT) HC COMPLETE BLD COUNT 2019-07-14 06:47:00 Jean Pro Christian W/AUTO DIFF BASIC METABOLIC PANEL 2019-07-14 06:47:00 Jean Pro Christian ESTIMATED GFR 2019-07-14 06:47:00 Thor Feng Me thodist PROTHROMBIN TIME WITH INR 2019-07-14 06:47:00 Marsh[facility] PARTIAL THROMBOPLASTIN 2019-07-14 06:47:00 Marsh, Irwin Tan [place] Christian TIME (PTT) SPUTUM CULTURE 2019-07-13 16:30:00 Thor Feng Me thodist GRAM STAIN 2019-07-13 16:30:00 Thor Feng Me thodist POC GLUCOSE 2019-07-13 12:33:00 Thor Feng Me thodist TTE COMPLETE, WO CONTRAST, 2019-07-13 08:40:00 LucindaBert gallagher Christian W DOPPLER ([id number]) POC GLUCOSE 2019-07-13 07:48:00 Thor Feng Me thodist HC COMPLETE BLD COUNT 2019-07-13 05:30:00 LucindaBert gallagher Christian W/AUTO DIFF COMPREHENSIVE METABOLIC 2019-07-13 05:30:00 Bert Jane Stephanie hanna Christian PANEL B NATRIURETIC PEPTIDE 2019-07-13 05:30:00 Bert Janebeverly n Christian LACTIC ACID LEVEL 2019-07-13 05:30:00 Bert Jane Me thodist THYROID STIMULATING 2019-07-13 05:30:00 Bert Jane Christian HORMONE ESTIMATED GFR 2019-07-13 05:30:00 Thor Feng Me thodist POC GLUCOSE 2019-07-13 04:49:00 Thor Feng Me thodist POC GLUCOSE 2019-07-13 01:47:00 Thor Feng MerryWade Bhakta Pa thodist TROPONIN 2019-07-12 22:08:00 Mookie Feng ARTERIAL BLOOD GAS 2019-07-12 21:12:00 Jordan Craig URINE CULTURE 2019-07-12 18:15:00 Jordan Craig Pa thodist URINALYSIS SCREEN AND 2019-07-12 18:08:00 Jordan Craig MICROSCOPY, WITH REFLEX TO CULTURE TROPONIN 2019-07-12 18:08:00 Mookie Feng LACTIC ACID LEVEL 2019-07-12 18:08:00 Jordan Craig RESPIRATORY PATHOGEN PANEL 2019-07-12 16:56:00 Jordan Craig XR CHEST 1 VW PORTABLE 2019-07-12 16:15:36 Jordan Craig BLOOD CULTURE, AEROBIC & 2019-07-12 15:31:00 Jordan Craig ANAEROBIC LACTIC ACID LEVEL 2019-07-12 15:30:00 Jordan Craig ARTERIAL BLOOD GAS 2019-07-12 15:30:00 Jordan Craig ECG ED PRELIMINARY 2019-07-12 15:12:18 Jordan Craig INTERPRETATION HC COMPLETE BLD COUNT 2019-07-12 14:55:00 Mookie Feng W/AUTO DIFF COMPREHENSIVE METABOLIC 2019-07-12 14:55:00 [facility] Yony Lundberg PANEL TROPONIN 2019-07-12 14:55:00 [facility] Lund[facility] B NATRIURETIC PEPTIDE 2019-07-12 14:55:00 Jung [facility]elinformerly [facility] Judy Norma Lundberg ESTIMATED GFR 2019-07-12 14:55:00 [facility] Yony Lundberg ECG 12-LEAD 2019-07-12 14:47:59 [facility] Yony Lundberg BONE DENSITY PERIPHERAL 2019-04-19 13:21:04 Laurel Dykes BONE DENSITY 2019-04-19 13:20:21 Laurel Dykes odnishant Plan of Care Planned Activity Planned Date Details Comments Source Future Scheduled 2020-01-28 INFLUENZA VACCINE Tasha lilly Christian Test 00:00:00 [code = INFLUENZA VACCINE] Future Scheduled 2008-12-23 65+ PNEUMOCOCCAL Bhakta Christian Test 00:00:00 VACCINE (2 of 2 - PPSV23) [code = 65+ PNEUMOCOCCAL VACCINE (2 of 2 - PPSV23)] Future Scheduled 1993-12-23 BREAST CANCER [facility] thodist Test 00:00:00 SCREENING [code = BREAST CANCER SCREENING] Future Scheduled 1993-12-23 COLONOSCOPY SCREENING [facility] Christian Test 00:00:00 [code = COLONOSCOPY SCREENING] Future Scheduled 1993-12-23 SHINGLES VACCINES (#1) H akhil Christian Test 00:00:00 [code = SHINGLES VACCINES (#1)] Encounters Start End Encounter Admission Attending Care Care Encounter Source Date/Time Date/Time Type Type Clinicians Facility Department ID 2019-11-14 2019-11-14 [facility] [id number] [facility] 10:45:00 10:45:00 [employer] [facility] Medicine [facility] Clinics 2019-10-31 2019-10-31 [facility] [id number] 10:54:00 10:54:00 [employer]uaile[employer] [facility] Medicine [facility] Clinics 2019-10-14 2019-10-14 [facility] [id number] 09:59:00 09:59:[address] Luke s - Drive [facility] l Medicine Outpati ent Clinics 2019-09-29 2019-09-29 [facility] [id number] 14:30:00 14:30:[address] LuVinsula s - Drive [facility] l Medicine Outpati ent Clinics 2019-09-22 2019-09-22 [facility] [id number] 16:54:00 16:54:00 t Ravena Ravena [employer] LuVinsula s - Drive [facility] l Medicine Outpati ent Clinics 2019-08-23 2019-08-23 [id number] [place] 00:00:00 00:00:00 LOPEZ [address] 2019-08-16 2019-08-16 [facility] [id number] 09:30:00 09:30:00 t Ravena Wheelright LuVinsula s - Drive [facility] l Medicine Outpati ent Clinics 2019-07-21 2019-07-21 [facility] [id number] 08:00:00 08:00:00 t Ravena M87 s - Drive [facility] Medicine l Medicine Outpati ent Clinics 2019-07-12 2019-07-15 Inpatient [facility] [id number] [place] 00:00:00 00:00:00 THOR [address] 2019-06-30 2019-06-30 [facility] [id number] 13:00:00 13:00:00 t Ravena Wheelright LuVinsula s - Drive [facility] l Medicine Outpati ent Clinics 2019-06-27 2019-06-27 [facility] [id number] 09:57:00 09:57:00 t Ravena Ravena [employer] LuVinsula s - Drive [facility] Medicine l Medicine Outpati ent Clinics 2019-05-11 2019-05-11 [facility] [id number] 11:15:00 11:15:00 t Ravena Ravena [employer] LuVinsula s - Drive [facility] Medicine l Medicine Outpati ent Clinics 2019-04-19 2019-04-19 Outpatient [facility]E [facility] [id number] [place] 00:00:00 00:00:00 LAUREL [address] 2019-04-19 2019-04-19 Outpatient K[facility]E [facility] [id number] [place] 00:00:00 00:00:00 LAUREL [address] 2019-04-11 2019-04-11 [facility] [id number] 13:15:00 13:15:00 t Ravena Ravena [employer] Luke s - Drive [facility] Medicine l Medicine Outpati ent Clinics 2019-03-28 2019-03-28 [facility] [id number] 14:30:00 14:30:00 t Ravena Ravena [employer] Luke s - Drive [facility] Medicine l Medicine Outpati ent Clinics 2019-03-08 2019-03-08 [facility] [id number] 10:45:00 10:45:00 t Ravena Ravena [employer] Luke s - Drive [facility] Medicine l Medicine Outpati ent Clinics 2019-02-18 2019-02-18 [facility] [id number] 10:42:00 10:42:00 t Ravena Ravena [employer] Luke s - Drive [facility] Medicine l Medicine Outpati ent Clinics 2019-01-25 2019-01-25 [facility] [id number] 10:00:00 10:00:00 t Ravena Ravena [employer] Luke s - Drive [facility] Medicine l Medicine Outpati ent Clinics 2019-01-05 2019-01-05 [facility] [id number] 11:44:00 11:44:00 t Ravena Ravena [employer] Luke s - Drive [facility] l Medicine Outpati ent Clinics 2018-10-27 2018-10-27 [facility] [id number] 10:15:00 10:15:00 t Ravena Ravena [employer] Luke s - Drive [facility] Medicine l Medicine Outpati ent Clinics 2018-09-13 2018-09-13 [facility] [id number] 10:00:00 10:00:00 t Ravena Ravena [employer] Luke s - Drive [facility] Medicine l Medicine Outpati ent Clinics 2018-08-11 2018-08-11 [facility] [id number] 10:00:00 10:00:00 t Ravena Ravena [employer] Luke s - Drive [facility] l Medicine Outpati ent Clinics 2018-07-19 2018-07-19 [facility] [id number] 09:15:00 09:15:[address] Luke s - Drive [facility] Medicine l Medicine Outpati ent Clinics 2018-06-07 2018-06-07 [facility] [id number] 08:00:00 08:00:00 t Ravena Ravena [employer] Luke s - Drive [facility] l Medicine Outpati ent Clinics 2018-02-26 2018-02-26 [facility] [id number] 09:30:00 09:30:00 t Ravena Ravena [employer] LuVinsula s - Drive [facility] Medicine l Medicine Outpati ent Clinics 2018-01-08 2018-01-08 [facility] [id number] 10:30:00 10:30:00 t Ravena Ravena [employer] s - Drive [facility] Medicine l Medicine Outpati ent Clinics 2017-12-09 2017-12-09 [facility] [id number] 11:06:00 11:06:00 t Ravena Ravena [employer] Luke s - Drive [facility] [facility] Medicine l Medicine Outpati ent Clinics 2017-12-09 2017-12-09 [facility] [id number] 10:15:00 10:15:00 t [place] [address] s - [address] [facility] Medicine l Medicine Outpati ent Clinics 2017-11-18 2017-11-18 [facility] [id number] 10:32:00 10:32:00 t Ravena Ravena [employer] s - Drive [facility] Medicine l Medicine Outpati ent Clinics 2017-11-18 2017-11-18 [facility] [id number] 09:00:00 09:00:00 t Ravena Ravena [employer] s - Drive [facility] Medicine l Medicine Outpati ent Clinics 2017-09-30 2017-09-30 [facility] [id number] 10:30:00 10:30:00 t [place] M[address] s - [address] [facility] Medicine l Medicine Outpati ent Clinics Results Test Description Test Time Test Comments Results Result Comments Source SARS-COV2/RT-PCR ([facility]) 2019-11-07 23:10:00 Test Item Value Reference Range Interpretation Comme nts SARS-COV2/RT-PCR (test code = 3088591) Not Detected Not Detected, N egative SARS-COV-2 PERFORMING LAB (test code = [facility] 0535309) Negative results do not preclude SARS-CoV-2 infection and should not be used as the sole basis for patient management decisions. Negative results must be combined with clinical observations, patient history, and epidemiological information. A false negative result may occur if a specimen is improperly collected, transported or handled.The limit of detection for this assay is 250 copies/mL.This SARS CoV-2 test is a rapid, real-time RT-PCR test intended for the qualitative detection of nucleic acid from SARS-CoV-2 in a nasopharyngeal swab specimen collected from individuals suspected of COVID-19 by their healthcare provider.This test has not been Food and Drug [...] is revoked under Section 564(g) of the Act.Fact Sheet for Healthcare Pro viders:https://www.[employer]/Documents/Xpert%20Xpress%20SARS%20CoV-2/Fact%20Sh eets/3023802%21MHEC-GVP-7%20HEALTHCARE%20PROVIDERS%20FACT%20SHEET.pdfFact Sheet for Healthcare Patients:https://www.[employer]/Documents/Xpert%20Xpress%20SARS%20CoV-2/Fact%20Sheets/3023801%20SARS-COV -2%20PATIENT%20FACT%20SHEET.pdfPerforming Laboratory:[facility], [place] [address]Stja lab ygyqrjlba6142-82-17 15:34:41 INTERVENTIONAL CARDIOLOGY PROCEDURE NOTE[ Lopez Luz MD | Kari Carmona MD | Cullen Edwards MD ] PATIENT: Seema Romo, MR#: [id number], : 1945 DATE OF SERVICE: 08/23/2019 Pre-Procedure Diagnosis: Pulmonary HTN Post-Procedure Diagnosis: moderate Pulm HTN Procedure Performed: - Right heart catheterization (RHC)- Ultrasound access: RIJ- Monitoring under moderate sedation for 45 minutesPrimary Quality Audit Representative: Bandeali Anesthesia/Sedation: Moderate Sedation (IV Versed and IV Fentanyl) Specimens: None Estimated Blood Loss: 1 mL Iodinated Contrast: none mL Blood Administered: None Grafts or Implants: None Complications: None Hemodynamic / oximetric Findings: Right atrium: 2 mm Hg (mean)Right ventricle: 56/4 RVEDP 4Pulmonary artery: 56/12 mean 34 mm HgWedge: 4 mm Hg Pulmonary artery saturation: 72 %Systemic artery saturation: 96 % Cardiac output / index (Estimated Caitlyn): 3.08 / 2.51PVR 9.74 PERDUE Plan / Recommendations: Severe PVR ~ [address] Herrera. Thank you for the opportunity to be of assistance. Please call if questions arise. Lopez Luz MD [facility] FSCAIClinical and Interventional CardiologyOffice: ; Answering Service: Pager: [phone] [facility] with platelet and qztcopxwunpz1209-77-91 08:55:13 Test Item Value Reference Range Interpretation Comments WBC (test code = 02202-2) 7.49 4.50- 11.00 k/uL RBC (test code = 57537-6) 3.94 m/uL 4.2-5.5 L HGB (test code = 718-7) 11.9 g/dL 12-16 L HCT (test code = 4544-3) 37.4 % 37-47 MCV (test code = 787-2) 94.9 fL 82-100 MCH (test code = 785-6) 30.2 pg 27-34 MCHC (test code = 786-4) 31.8 g/dL 31-37 RDW - SD (test code = 49.2 fL 37-55 78279-6) MPV (test code = 06770-2) 9.8 fL 8.8-13.2 Platelet count (test code 233 150- 400 k/uL = 80475-2) Nucleated RBC (test code 0.00 /100 WBC = 21994-8) Neutrophils (test code = 50.9 % 39-69 96695-2) Lymphocytes (test code = 32.2 % 25-45 64374-4) Monocytes (test code = 11.7 % 0-10 H 30403-4) Eosinophils (test code = 3.2 % 0-5 75469-7) Basophils (test code = 1.7 % 0-1 H 74028-8) Immature granulocytes 0.3 % 0-1 "Immat ure (test code = 67583-0) granul ocytes" (promyelocytes, myelocytes, metamyelocytes) Lab Interpretation (test Abnormal code = 71968-9) Bhakta MethodistPOC dfhqm3089-79-57 08:14:26 Test Item Value Reference Range Interpretation Comments POC sodium (test code 141 mmol/L 135-148 = 2947-0) POC potassium (test 4.2 mmol/L 3.5-5 code = 6298-4) POC chloride (test 102 mmol/L 99-109 code = 2069-3) POC CO2 (test code = 31 mmol/L 24--8) POC glucose (test 91 mg/dL 65-99 code = 2339-0) POC BUN (test code = 9 mg/dL 899-2) POC creatinine (test 0.6 mg/dl 0.5-0.9 code = 32056-2) POC hematocrit (test 39 % 37-47 code = 4544-3) POC anion gap (test 13 mmol/L 02-15 Quality Audit Representative Name: Pacres code = 0623912) NenitaDevice ID: [id number] Perry MethodistEstimated [id number] 08:14:26 Test Item Value Reference Range Interpretation Comments Estimated GFR (test 89 mL/min/1.73 m2 Caterg ory Units code = 28075-4) Interpretati onG1 >=90 Normal or highG2 60-89 Mildly bbgwaywmlT8v 45-59 Mildly to mode rately ijzfmnybuM7m 30-44 Moderately to severely decreasedG4 15-29 Severely decre asedG5 <15 Kidn ey failureThe eGFR was calculated steffi lujan the Chronic Kidney Disease Epidemiology Co llaboration (CKD-EPI) equat ion. Interpretation is based on recommendations of the National Kidney Foundation-Kidn ey Disease Outcomes Qualit y Initiative (NKF-KDOQI) pub lished in 2014. Bhakta MethodistBlood culture, aerobic & szznojfxm6776-22-47 19:33:07 Test Item Value Reference Range Interpretation Comments Blood culture No growth Specimen isolate (test after 5 days InformationSpe cimen code = 600-7) of Source: BloodS pecimen incubation. Site: Antecubit al Left Perry MethodistSputum xqgvyma2840-00-33 09:59:50 Test Item Value Reference Range Interpretation Comments Sputum culture Normal oral Specimen isolate (test yenni InformationSpe cimen code = 2234) isolated. Source: SputumS pecimen Site: Expectora joanna Perry MethodistBasic metabolic ixnyw8299-18-53 07:10:18 Test Item Value Reference Range Interpretation Comments Sodium (test code = 2951-2) 142 135- 148 mEq/L Potassium (test code = 2823-3) 4.7 3.5- 5.0 mEq/L Chloride (test code = 2075-0) 107 98- 112 mEq/L CO2 (test code = 8-9) 28 24- 31 mEq/L Anion gap (test code = 49738-4) 7@ANIO 7- 15 mEq/L BUN (test code = 3094-0) 10 mg/dL 8-23 Creatinine (test code = 2160-0) 0.70 mg/dL 0.5-0.9 Glucose (test code = 2345-7) 91 mg/dL 65-99 Calcium (test code = 03507-5) 8.8 mg/dL 8.8-10.2 Perry MethodistMagnesium wwsyr9995-99-37 07:10:18 Test Item Value Reference Range Interpretation Comments Magnesium (test code = 77745-2) 2.1 mg/dL 1.6-2.4 Perry MethodistPhosphorus bjsmd6105-32-37 07:10:18 Test Item Value Reference Range Interpretation Comments Phosphorus (test code = 2777-1) 3.4 mg/dL 2.4-4.5 Perry MethodistPartial thromboplastin time, disdmvyol3589-47-96 00:23:33 Test Item Value Reference Range Interpretation Comments PTT (test code = 32.2 23.0- 36.0 [place] [address]-6) unfractionated heparin is61.0-112.0 se conds which corresponds to Anti-Xa0.3-0.7 U/ml. Perry MethodistCT Soft Tissue Neck Wo Hbmdpklm6082-06-31 16:29:03Hm Interface, Radiology Results 07/14/2019 4:32 PM CSTEXAMINATION: CT SOFT TISSUE NECK WO CONTRASTCLINICAL HISTORY: Palpable nodule or thyroid enlargement, Submantle submandibular nodulenon-tender mobileTECHNIQUE:Routine nonenhanced CT study of the neck was performed with images obtained from the skull base to the thoracic inlet. Images were reviewed in soft tissue and bone detail. CT imaging was performed with iterative reconstruction technique and/or automated exposure control toreduce radiation dose.COMPARISON: CT neck 10/22/2004FINDINGS:There is a superficial skin marker overlying the anterior neck just left of midline. Subjacent to this marker is a round hyperdense 10 x 7 x 7 mm circumscribed lesion anterior to and abutting the hyoid bone but off midline to the left by approximately 1 cm. No pathologic cervical lymph nodes by imaging criteria. No other mass lesion in the neck. Major salivary glands are slightly atrophic without focal lesion. Left lobe 4 mm hypodense thyroid nodule.Paranasal sinuses and mastoid air cells are clear. Bilateral intraocular lens implants. Bones and soft tissues without acute abnormalitySevere centrilobular emphysema in the visualized lungs bilaterally.IMPRESSION:Circumscribed 10 mm mass that is hyperdense similar to thyroid tissue anterior to the left hyoid bone, compatible with ectopic thyroid.[id number] and approved by energy operations vice president/fellow: Real Chilel, Dimitri Forte MD, personally reviewed the images and resident's/fellow's findings and agree with the final report.Perry MethodistCT Chest Wo Xvusshsn3306-78-58 15:50:42Hm Interface, Radiology Results 07/14/2019 3:53 PM CSTEXAMINATION: CT CHEST WO CONTRASTCLINICAL HISTORY: Acute resp illness > 40 years old, Shortness of breath, Rhino Enterovirus pulmonary hypertension anterior neck noduleTECHNIQUE:Multiple axial images of the chest were obtained without intravenous contrast. The lack of intravenous contrast reduces the sensitivity of detecting solid organ disease and evaluating vasculature. Sagittal and coronal computerized reformatted images werealso obtained. Radiation dose reduction technique was utilized.COMPARISON: 05/19/2018IMPRESSION:1.No mediastinal or hilar masses have developed.2.There are no pleural effusions.3.Severe emphysematous changes are present throughout both lungs. 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 No no mass, infiltrate, or consolidation is seen.4.No endobronchial lesions are seen.5.Limited scans through the upper abdomen do not demonstrate any masses.[facility]-[id number] MethodistGram stain 2019-07-14 15:37:25Gram stain isolateFew WBC'sFew Gram positive cocci in clustersMany Gram positive cocci in chains Comment: Specimen InformationSpecimen Source: SputumSpecimen Site: Expectorated [facility] MethodistProthrombin time with [id number] 08:05:32 Test Item Value Reference Range Interpretation Comments Prothrombin time 12.7 11.5- 14.5 sec (test code = 5902-2) INR (test code = 1.0 [facility] 18969-8) Normalized Rati o (INR) is a therapeutic monitoring tool for patients who ar e stable on oral anticoagulant therapy. An INR of 2.0-3.0 is sugg ested for deep vein thrombosis/pulm onary embolism. TATA (test code = PTT added and TATA) read back to Malissa Reyes in [facility] 07/14/2019 06:59 LMID. [facility] nweqjnw3398-55-46 12:38:37 Test Item Value Reference Range Interpretation Comments POC glucose (test 82 mg/dL 65-99 Quality Audit Representative N deb: Karel code = 77938-3) Kyle e ID: [id number] able: [facility] Notified JOLEEN Bhakta MethodistEchocardiogram complete w contrast and 3D if yuxjwf7258-42-64 09:14:00Interface, Radiology Results In - 07/13/2019 9:15 AM INSIDE SALES SPECIALIST Echocardiography Report [address] [address], [place] [address] Pat.Name: SEEMA ROMO Pat.ID: [id number].Date: 07/13/2019 Refer.MD: THOR FENG MDExam Time: 6:18:00 AM Study Type:Routine Echo Height: 57in Weight: 81lb BSA: 1.23 m2 Age: 6 1945,73Y Sex: FEMALE BP: 85/49 HR: 73 bpm Sonogrphr: Mart Meek. Stat.:Inpatient Room: RQPH464-52 Study Status:Final Echo Event ID:[id number] Order ID: [id number] Reason for Study:H/o Pulmonary hypertension, RA pressures, PASP,Cardiac indexHistory / Clinical:COPD Procedures: 2D Echo, Colorflow Doppler, Strain, Portable, StatRace: C --- SUMMARY: Est imated EF is 65-69%RV size is mild to moderately enlarged. RV systolic function is mildlydepressed.Estimated PA systolic pressure is 49 mmHg, assuming a mean RAP of 5mmHg. FINDINGS:------- LV: LV EF is normal. Overall wall motion is normal. GLS = -18.4% (normal) Estimated EF is 65-69% Septal motion is paradoxical secondary to elevated RV diastolic pressure.RV: RV size is mild to moderately enlarged. RV systolic function is mildly depressed. TAPSE = 2.4 cm.LA: LA volume is mildly enlarged.RA: RA volume is moderately enlarged.AO: Aortic root diameter is normal.MARTY: Trace posterolateral pericardial effusion.AV: No structural AV abnormalities noted. A trace of aortic regurgitation. MV: No structural MV abnormalities noted. A trace of mitral regurgitation. PV: No structural PV abnormalities noted.TV: No structural TV abnormalities noted. Mild tricuspid regurgitation Welch: LV relaxation is reduced, appropriate for age. LV filling pressure is normal.Other: Estimated PA systolic pressure is 49 mmHg, assuming a mean RAP of 5 mmHg. MEASUREMENTS: 2DParasternal Long [place] Ao An 2 cm LVPWd 0.74 cm Ao Rtd 2.7 cm Index 2.2 cm/m2 LA Ds 3 cm IVSd 0.81 cm RWT 0.39 LVIDd 3.8 cm Index 3.1 cm/m2 LV Mass 82 g (87-129) LVIDs 2.5 cm LVM Index 67 g/m2 LV%fs 34 % LVOT 2 cm LA Sng Plane LA Area 17 cm2 (8.8-23.4) LA Vol 42 ml Index 34 ml/m2 LA LngAx 5.6 cm RA Sng Plane RA Vol 55 ml Index 45 ml/m2 RA LngAx 4.3 cm RA Area 18 cm2 (8.3-19.5)LVOT LVOT Area 3.1 cm2 DOPPLERStroke Vol HR 64 bpm SV 65 ml alexys 2 cm CO 4.1 l/min TVI 21cm CI 3.4 l/m/m2 Tm 316 msec Tricuspid Valve TV Alber 335 cm/s Signed 07/13/2019 09:14 Tracy Conrad MethodistThyroid stimulating tbetefc1725-47-48 06:19:46 Test Item Value Reference Range Interpretation Comments TSH (test code = 3016-3) 0.51 0.27- 4.20 uIU/mL Perry MethodistB natriuretic fzakzhf0268-43-80 06:10:03 Test Item Value Reference Range Interpretation Comments BNP (test code = 28735-0) 153 pg/mL 0-100 H Lab Interpretation (test code = Abnormal 47264-2) Perry MethodistComprehensive metabolic [id number] 06:09:51 Test Item Value Reference Range Interpretation Comments Sodium (test code = 140 135- 148 mEq/L 2951-2) Potassium (test code = 4.5 3.5- 5.0 mEq/L 2823-3) Chloride (test code = 106 98- 112 mEq/L 2074-0) CO2 (test code = 2027-) 24 24- 31 mEq/L Anion gap (test code = 10@ANIO 7- 15 mEq/L 92159-7) BUN (test code = 3094-0) 14 mg/dL 8-23 Creatinine (test code = 0.67 mg/dL 0.5-0.9 2160-0) Glucose (test code = 143 mg/dL 65-99 H 2345-7) Calcium (test code = 8.5 mg/dL 8.8-10.2 L 01259-0) Protein (test code = 6.3 g/dL 6.3-8.3 [place] 9994.6-7.0 2885-2) g/dL1 nkma7184.4-7.6 g/dL7 months-7siah248 .1- 7.3 g/dL1-2 .6-7.5 g/dL>3 gkizw678.0-8.0 g/lT12-0067962. 3-8 .3 g/dL Albumin (test code = 3.0 g/dL 3.5-5 L 175-7) A/G ratio (test code = 0.9 0.7-3.8 1759-0) Alkaline phosphatase 78 U/L 35-104 (test code = 6768-6) AST (test code = 1920-8) 14 U/L 10-35 ALT (test code = 1742-6) 19 U/L 5-50 Total bilirubin (test <0.2 0-1.2 code = 1974-) Lab Interpretation (test Abnormal code = 90034-1) Perry MethodistLactic acid qkguj3800-75-49 06:05:57 Test Item Value Reference Range Interpretation Comments Lactic acid (test code = 43035-3) 1.0 mmol/L 0.5-2.2 Perry KbtpcqqjlNczgxvxt2051-49-79 22:52:33 Test Item Value Reference Range Interpretation Comments Troponin (test code 0.011 ng/mL 0-0.04 In patie nts suspected = 24640-8) of having a thien cardial infarction, ana ng with all other appro priate clinical measur es and actions includi manuel ECG and other diagn ostics as appropriate, measure Ultra TnI at 0 hrs and at 3 hrs.Myocar dial infarction VERY LIKELYThe 0 hr TnI level is > 0.10 ng/mL -------- -------- -------- --------Myocard ial infarction LIKE LYThe 0 hr TnI level is > 0.04 ng/mL and 3 hr level is increased or de creased by at least 0.0 20 ng/mL -------- -------- -------- ---Myocardial infarction VERY UNLIKELYBoth th e 0 hr and 3 hr TnI le vels <= 0.04 ng/mL(with in normal limits) OR 0 hr is > 0.04 ng/mL and 3 hr is increased OR decreased by le ss than 0.020 ng/mL Yony MethodistRespiratory pathogen lhbvu7026-80-38 22:47:01 Test Item Value Reference Interpretation Comments Range Respiratory Positive for A Specimen pathogen panel Rhinovirus/Enterovirus-- I nformationSpecimen (test code = Neg Simona rce: 2148) ative for all other [facility] Site: pathogens Left tested:Negative for AdenovirusNegative for Coronavirus XBT9Ywlnzqua for Coronavirus WC17Guxtsnby for Coronavirus 229ENegative for Coronavirus LZ84Llmkmmwc for Human MetapneumovirusNegative for Influenza ANegative for Influenza A/A7Sjgcyulz for Influenza A/M4Fbydhkim for Influenza A/H1-2009Negative for Influenza BNegative for Parainfluenza Virus 1Negative for Parainfluenza Virus 2Negative for Parainfluenza Virus 3Negative for Parainfluenza Virus 4Negative for Respiratory Syncytial VirusNegative for Bordetella pertussisNegative for Chlamydophila pneumoniaeNegative for Mycoplasma pneumoniaeThis real-time PCR assay detects the presence of nucleic acids (RNA or DNA) for the respiratory pathogens listed. A result of "Not-detected" does not exclude the possibility of the presence of one or more pathogens at concentrations less than the detectable limits of the assa Lab Abnormal Interpretation (test code = 89718-9) Perry MethodistArterial blood [id number] 21:21:02 Test Item Value Reference Range Interpretation Comments pH, arterial (test code = 2744-1) 7.41 7.35-7.45 pCO2, arterial (test code = 38 35- 45 mmHg 2019-01) pO2, arterial (test code = 77 80- 90 mmHg L 2703-7) Bicarbonate, arterial (test code 23.6 mmol/L = 1960-4) Base excess, arterial (test code 0 -2 - 2 mEq-L = 1925-7) O2 saturation, arterial (test 95 % 95-100 code = 2708-6) Lab Interpretation (test code = Abnormal 94136-0) Perry MethodistUrinalysis screen and microscopy, with reflex to culture 2019-07-12 21:08:53 Test Item Value Reference Range Interpretation Comments Specimen site (test code = Clean catch 5482019) Color, UA (test code = 5778-6) Yellow Appearance, UA (test code = Clear 5767-9) Specific gravity, UA (test code = 1.019 1.001-1.035 5811-5) pH, UA (test code = 5803-2) 6.0 5.0-8.5 Protein, UA (test code = 42277-0) Negative Negative Glucose, UA (test code = 70321-7) Negative Negative Ketones, UA (test code = 2514-8) Negative Negative Bilirubin, UA (test code = Negative Negative 5770-3) Blood, UA (test code = 5794-3) Negative Negative Nitrite, UA (test code = 5802-4) Negative Negative Urobilinogen, UA (test code = <2.0 <2.0 41379-4) Leukocyte esterase, UA (test code Negative Negative = 5799-2) Epithelial cells, UA (test code = 1 /HPF 5787-7) WBC, UA (test code = 5821-4) <1 0- 4 /HPF RBC, UA (test code = 96958-3) <1 0- 5 /HPF Bacteria, UA (test code = Few None seen 79080-5) Yeast, UA (test code = 31640-8) None seen Yeast with pseudohyphae, UA (test None seen code = 39782-2) Hyaline casts, UA (test code = 4 /LPF 5796-8) Bhakta [facility] dqpxuak8388-60-91 18:40:41 Test Item Value Reference Range Interpretation Comments Urine culture (test SEE COMMENT Bacteriu jose screen code = 0783207) negative. [facility] MethodnishantCOR[facility] wbqv4568-34-25 18:36:47 Test Item Value Reference Range Interpretation Comments Ventricular rate (test 111 code = 253) Atrial rate (test code = 111 255) MD interval (test code = 130 266) QRSD interval (test code 82 = 260) QT interval (test code = 328 264) QTC interval (test code 446 = 265) P axis 1 (test code = 87 267) QRS axis 1 (test code = 270 268) T wave axis (test code = 7 270) EKG impression (test Sinus code = 273) tachycardia-Left axis deviation-Low voltage QRS-Cannot rule out Anterior infarct , age undetermined-Abnormal ECG-No previous ECGs available-Electronica lly Signed By Gracie Barragan MD ([id number]) on 07/12/2019 6:36:46 PM Yony LundbergXR Chest 1 Nuvzvghc4277-48-14 16:19:31Hm Interface, Radiology Results Incoming - 07/12/2019 4:22 PM CSTEXAMINATION: XR CHEST 1 PORTABLECLINICAL HISTORY: sobCOMPARISON: CT chest 08/09/2018. Chest radiograph 11/15/2017IMPRESSION:Prominent emphysematous changes are unchanged from the prior radiograph and better seen on prior CT. No focal consolidation or large pleural effusion.Normal cardiomediastinal silhouette.Interval angulated right sixth posterior rib fracture appears to be chronic, correlate with exam..Bhakta EstelaAt[facility] ED Preliminary Interpretation - Not an Lbnhs6580-59-16 15:12:18 Test Item Value Reference Range Interpretation Comments TATA (test code = TATA) Jordan Craig MD 08/14/2019 9:51 [facility] ED Preliminary Interpretation - Not an OrderPerformed by: Jordan Craig MDAuthorized by: Jordan Craig MD ECG reviewed by ED Physician in the absence of a dehydrogenation converter operator: yes Interpretation: Interpretation: abnormal Rate: ECG rate: 111 ECG rate assessment: tachycardic Rhythm: Rhythm: sinus tachycardia QRS: QRS axis: Left QRS intervals: NormalST segments: ST segments: NormalComments: Poor baseline. Lab Interpretation Abnormal (test code = 20417-6) Bhakta All Sfydiib3182-65-11 13:23:16Hm Interface, Radiology Results 04/19/2019 1:26 PM CDTEXAMINATION: BONE DENSITY, BONE DENSITY PERIPHERALCLINICAL HISTORY: M81.0 Age-related osteoporosis without current pathological fracture, AGE-RELATED OSTEOPOROSIS W O CURRENT PATHOLOGICAL FRACTURECOMPARISON: None.The results of this study expressed as bone mineral density (BMD) were as follows:AP spine (L1-L4)BMD: 0.90 g/lv6F-Rvdjh: -2.3Z-Score: 0.4Percent change: No prior exam. %Dual Femur (Total Mean):BMD: 0.67 g/pn8N-Lwpxc: -2.7Z-Score: -0.3Percent change: No prior exam. %Forearm (Radius 33%):BMD: 0.47 g/hy1X-Pbbne: -4.7Z-Score: -4.4 Percent change: No prior exam. %Femur FRAX:Risk factors: None.10 year probability of fracture:1. Major osteoporotic: 14.7%2. Hip:5.4%Trabecular Bone Score (TBS):TBS L1-L4: 1.21, >1.350 normal, 1.200-1.350 partially degraded microarchitecture, <1.200 degraded microarchitectureThe 10 year probability of fracture, adjusted for FRAX:Major Osteoporotic Fracture: 15.8%Hip Fracture: 5.8%Impression: Proximal femur and forearm values represent osteoporosis. Lumbar spine value indicates osteopenia.Notes: *The world health organization (WHO) has classified the patient's T-score as follows:Normal: T score at or above -1.0Osteopenia: T score between -1.0 and -2.5Osteoporosis: T score at orbelow -2.5 (osteoporosis, increased fracture risk)For premenopausal women, men under the age 50 years, and children the WHO classification does not apply. In these individuals please assess bone mineral density with Z scores for each skeletal site examined. Z scores above -2.0: Within expected rangefor age. Z scores lower than -2.0: Low bone density for age.The TBS is derived from the texture of the DEXA image and has been shown to be related to bone microarchitecture and fracture risk. This data provides information independent of BMD value; is used as a complement to the data obtained fromthe DEXA analysis and the clinical examination. The TBS can assist the healthcare professional in assessment of fracture risk and in monitoring the effect of treatments on patient over time.[facility]-2IF26101AKRybouss MethodistBone Density Dsrkmmaklp6490-39-54 13:23:16Hm Interface, Radiology Results 04/19/2019 1:26 PM CDTEXAMINATION: BONE DENSITY, BONE DE NSITY PERIPHERALCLINICAL HISTORY: M81.0 Age-related osteoporosis without current pathological fracture, AGE-RELATED OSTEOPOROSIS W O CURRENT PATHOLOGICAL FRACTURECOMPARISON: None.The results of this study expressed as bone mineral density (BMD) were as follows:AP spine (L1-L4)BMD: 0.90 g/in5C-Ymrtx: -2.3Z-Score: 0.4Percent change: No prior exam. %Dual Femur (Total Mean):BMD: 0.67 g/hg1R-Tdrif: -2.7Z-Score: -0.3Percent change: No prior exam. %Forearm (Radius 33%):BMD: 0.47 g/rw7V-Hivef: -4.7Z-Score: -4.4 Percent change: No prior exam. %Femur FRAX:Risk factors: None.10 year probability of fracture:1. Major osteoporotic: 14.7%2. Hip:5.4%Trabecular Bone Score (TBS):TBS L1-L4: 1.21, >1.350 normal, 1.200-1.350 partially degraded microarchitecture, <1.200 degraded microarchitectureThe 10 year probability of fracture, adjusted for FRAX:Major Osteoporotic Fracture: 15.8%Hip Fracture: 5.8%Impression: Proximal femur and forearm values represent osteoporosis. Lumbar spine value indicates osteopenia.Notes: *The world health organization (WHO) has classified the patient's T-score as follows:Normal: T score at or above -1.0Osteopenia: T score between -1.0 and -2.5Osteoporosis: T score at orbelow -2.5 (osteoporosis, increased fracture risk)For premenopausal women, men under the age 50 years, and children the WHO classification does not apply. In these individuals please assess bone mineral density with Z scores for each skeletal site examined. Z scores above -2.0: Within expected rangefor age. Z scores lower than -2.0: Low bone density for age.The TBS is derived from the texture of the DEXA image and has been shown to be related to bone microarchitecture and fracture risk. This data provides information independent of BMD value; is used as a complement to the data obtained fromthe DEXA analysis and the clinical examination. The TBS can assist the healthcare professional in assessment of fracture risk and in monitoring the effect of treatments on patient over time.[facility]-[id number] MethodistSPUTUM CULTURE + GRAM [id number] 12:13:00 Test Item Value Reference Range Interpretation Comments CULTURE (BEAKER) PSEUDOMONAS A 4+ Pseudomo jian (test code = 1095) AERUGINOSA aeruginos a Amikacin (test code Susceptible 0-16 S = 1) , Resistant <0 or >16 Aztreonam (test Susceptible 0-8 , S code = 32) Resistant <0 or >8 Cefepime (test code Susceptible 0-8 , S = 51) Resistant <0 or >8 Ceftazidime (test Susceptible 0-8 , S code = 27) Resistant <0 or >8 Ciprofloxacin (test Susceptible 0-0.5 S code = 7) , Resistant <0 or >.5 Gentamicin (test Susceptible 0-4 , S code = 18) Resistant <0 or >4 Imipenem (test code Susceptible 0-2 , R = 19) Resistant <0 or >2 Levofloxacin (test Susceptible 0-1 , S code = 22) Resistant <0 or >1 Meropenem (test Susceptible 0-2 , S code = 34) Resistant <0 or >2 Piperacillin (test Susceptible 0-16 S code = 24) , Resistant <0 or >16 Piperacillin + Susceptible 0-16 S Tazobactam (test , Resistant <0 or code = 29) >16 Tobramycin (test Susceptible 0-4 , S code = 25) Resistant <0 or >4 GRAM STAIN RESULT 4+ WBCs (BEAKER) (test code = 1123) GRAM STAIN RESULT 0-5 epithelial (BEAKER) (test code cells = [id number]) GRAM STAIN RESULT No organisms seen (BEAKER) (test code = 167241) 4+ Normal respiratory yenni presentVANCOMYCIN LEVEL, [id number] 09:25:00 Test Item Value Reference Range Interpretation Comments VANCOMYCIN TROUGH (BEAKER) (test 11.9 ug/mL 10.0-20.0 code = 522) Please draw 30 min prior to scheduled dose.If vancomycin trough level > 20 mcg/mL, hold next vancomycin dose, and contact MD and pharmacist.CBC W/PLT COUNT & AUTO [id number] 06:38:00 Test Item Value Reference Range Interpretation Comments WHITE BLOOD CELL COUNT (BEAKER) 12.8 K/ L 3.5-10.5 H (test code = 775) RED BLOOD CELL COUNT (BEAKER) 3.65 M/ L 3.93-5.22 L (test code = 761) HEMOGLOBIN (BEAKER) (test code = 11.0 GM/DL 11.2-15.7 L 410) HEMATOCRIT (BEAKER) (test code = 34.0 % 34.1-44.9 L 411) MEAN CORPUSCULAR VOLUME (BEAKER) 93.2 fL 79.4-94.8 (test code = 753) MEAN CORPUSCULAR HEMOGLOBIN 30.1 pg 25.6-32.2 (BEAKER) (test code = 751) MEAN CORPUSCULAR HEMOGLOBIN CONC 32.4 GM/DL 32.2-35.5 (BEAKER) (test code = 752) RED CELL DISTRIBUTION WIDTH 14.2 % 11.7-14.4 (BEAKER) (test code = 412) PLATELET COUNT (BEAKER) (test 253 K/CU MM 150-450 code = 756) MEAN PLATELET VOLUME (BEAKER) 9.6 fL 9.4-12.3 (test code = 754) NUCLEATED RED BLOOD CELLS 0 /100 WBC 0-0 (BEAKER) (test code = 413) NEUTROPHILS RELATIVE PERCENT 68 % (BEAKER) (test code = 429) LYMPHOCYTES RELATIVE PERCENT 21 % (BEAKER) (test code = 430) MONOCYTES RELATIVE PERCENT 10 % (BEAKER) (test code = 431) EOSINOPHILS RELATIVE PERCENT 0 % (BEAKER) (test code = 432) BASOPHILS RELATIVE PERCENT 0 % (BEAKER) (test code = 437) NEUTROPHILS ABSOLUTE COUNT 8.68 K/ L 1.56-6.13 H (BEAKER) (test code = 670) LYMPHOCYTES ABSOLUTE COUNT 2.66 K/ L 1.18-3.74 (BEAKER) (test code = 414) MONOCYTES ABSOLUTE COUNT (BEAKER) 1.33 K/ L 0.24-0.36 H (test code = 415) EOSINOPHILS ABSOLUTE COUNT 0.04 K/ L 0.04-0.36 (BEAKER) (test code = 416) BASOPHILS ABSOLUTE COUNT (BEAKER) 0.01 K/ L 0.01-0.08 (test code = 417) IMMATURE GRANULOCYTES-RELATIVE 1 % 0-1 PERCENT (BEAKER) (test code = 2801) BASIC METABOLIC [id number] 05:44:00 Test Item Value Reference Range Interpretation Comments SODIUM (BEAKER) 139 meq/L 136-145 (test code = 381) POTASSIUM (BEAKER) 3.8 meq/L 3.5-5.1 (test code = 379) CHLORIDE (BEAKER) 107 meq/L 98-107 (test code = 382) CO2 (BEAKER) (test 28 meq/L 22-29 code = 355) BLOOD UREA NITROGEN 14 mg/dL 7-21 (BEAKER) (test code = 354) CREATININE (BEAKER) 0.65 mg/dL 0.57-1.25 (test code = 358) GLUCOSE RANDOM 97 mg/dL 70-105 (BEAKER) (test code = 652) CALCIUM (BEAKER) 8.5 mg/dL 8.4-10.2 (test code = 697) EGFR (BEAKER) (test 89 mL/min/1.73 ESTIMA JOANNA GFR IS code = 1092) sq m NOT ACCURATE CREATININE CLEARANCE IN PREDICTING GLOMERULAR FILTRATION RATE . ESTIMATED GFR I S NOT APPLICABLE FOR DIALYSIS PATIEN TS. BASIC METABOLIC [id number] 05:45:00 Test Item Value Reference Range Interpretation Comments SODIUM (BEAKER) 139 meq/L 136-145 (test code = 381) POTASSIUM (BEAKER) 4.5 meq/L 3.5-5.1 (test code = 379) CHLORIDE (BEAKER) 110 meq/L 98-107 H (test code = 382) CO2 (BEAKER) (test 25 meq/L 22-29 code = 355) BLOOD UREA NITROGEN 14 mg/dL 7-21 (BEAKER) (test code = 354) CREATININE (BEAKER) 0.66 mg/dL 0.57-1.25 (test code = 358) GLUCOSE RANDOM 155 mg/dL 70-105 H (BEAKER) (test code = 652) CALCIUM (BEAKER) 8.2 mg/dL 8.4-10.2 L (test code = 697) EGFR (BEAKER) (test 87 mL/min/1.73 ESTIMA JOANNA GFR IS code = 1092) sq m NOT ACCURATE CREATININE CLEARANCE IN PREDICTING GLOMERULAR FILTRATION RATE . ESTIMATED GFR I S NOT APPLICABLE FOR DIALYSIS PATIEN TS. CBC W/PLT COUNT & AUTO [id number] 05:39:00 Test Item Value Reference Range Interpretation Comments WHITE BLOOD CELL COUNT (BEAKER) 15.0 K/ L 3.5-10.5 H (test code = 775) RED BLOOD CELL COUNT (BEAKER) 3.63 M/ L 3.93-5.22 L (test code = 761) HEMOGLOBIN (BEAKER) (test code = 10.7 GM/DL 11.2-15.7 L 410) HEMATOCRIT (BEAKER) (test code = 33.8 % 34.1-44.9 L 411) MEAN CORPUSCULAR VOLUME (BEAKER) 93.1 fL 79.4-94.8 (test code = 753) MEAN CORPUSCULAR HEMOGLOBIN 29.5 pg 25.6-32.2 (BEAKER) (test code = 751) MEAN CORPUSCULAR HEMOGLOBIN CONC 31.7 GM/DL 32.2-35.5 L (BEAKER) (test code = 752) RED CELL DISTRIBUTION WIDTH 14.3 % 11.7-14.4 (BEAKER) (test code = 412) PLATELET COUNT (BEAKER) (test 240 K/CU MM 150-450 code = 756) MEAN PLATELET VOLUME (BEAKER) 9.5 fL 9.4-12.3 (test code = 754) NUCLEATED RED BLOOD CELLS 0 /100 WBC 0-0 (BEAKER) (test code = 413) NEUTROPHILS RELATIVE PERCENT 87 % (BEAKER) (test code = 429) LYMPHOCYTES RELATIVE PERCENT 8 % (BEAKER) (test code = 430) MONOCYTES RELATIVE PERCENT 4 % (BEAKER) (test code = 431) EOSINOPHILS RELATIVE PERCENT 0 % (BEAKER) (test code = 432) BASOPHILS RELATIVE PERCENT 0 % (BEAKER) (test code = 437) NEUTROPHILS ABSOLUTE COUNT 13.02 K/ L 1.56-6.13 H (BEAKER) (test code = 670) LYMPHOCYTES ABSOLUTE COUNT 1.25 K/ L 1.18-3.74 (BEAKER) (test code = 414) MONOCYTES ABSOLUTE COUNT (BEAKER) 0.65 K/ L 0.24-0.36 H (test code = 415) EOSINOPHILS ABSOLUTE COUNT 0.00 K/ L 0.04-0.36 L (BEAKER) (test code = 416) BASOPHILS ABSOLUTE COUNT (BEAKER) 0.01 K/ L 0.01-0.08 (test code = 417) IMMATURE GRANULOCYTES-RELATIVE 1 % 0-1 PERCENT (BEAKER) (test code = 2801) RESPIRATORY PANEL [id number] 20:29:00 Test Item Value Reference Range Interpretation Comments HUMAN METAPNEUMOVIRUS Not detected Not detected, (BEAKER) (test code = 2683) Equivocal RHINOVIRUS (BEAKER) (test Not detected Not detected, code = 2684) Equivocal INFLUENZA A (BEAKER) (test Not detected Not detected, code = 2685) Equivocal INFLUENZA A (NO SUBTYPE) (test code = 3606) INFLUENZA A SUBTYPE H1 (BEAKER) (test code = 2686) INFLUENZA A SUBTYPE H3 (BEAKER) (test code = 2687) INFLUENZA A SUBTYPE H1-2009 (BEAKER) (test code = 3198) INFLUENZA B (BEAKER) (test Not detected Not detected, code = 2688) Equivocal RESPIRATORY SYNCYTIAL VIRUS Not detected Not detected, (BEAKER) (test code = 3199) Equivocal PARAINFLUENZA VIRUS 1 Not detected Not detected, (BEAKER) (test code = 2691) Equivocal PARAINFLUENZA VIRUS 2 Not detected Not detected, (BEAKER) (test code = 2692) Equivocal PARAINFLUENZA VIRUS 3 Not detected Not detected, (BEAKER) (test code = 2693) Equivocal PARAINFLUENZA VIRUS 4 Not detected Not detected, (BEAKER) (test code = 3200) Equivocal ADENOVIRUS (BEAKER) (test Not detected Not detected, code = 2694) Equivocal CORONAVIRUS 229E (BEAKER) Not detected Not detected, (test code = 3201) Equivocal CORONAVIRUS HKU1 (BEAKER) Not detected Not detected, (test code = 3202) Equivocal CORONAVIRUS NL63 (BEAKER) Not detected Not detected, (test code = 3203) Equivocal CORONAVIRUS OC43 (BEAKER) Not detected Not detected, (test code = 3204) Equivocal BORDETELLA PERTUSSIS Not detected Not detected, (BEAKER) (test code = 3205) Equivocal CHLAMYDOPHILA PNEUMONIAE Not detected Not detected, (BEAKER) (test code = 3206) Equivocal MYCOPLASMA PNEUMONIAE Not detected Not detected, (BEAKER) (test code = 3207) Equivocal Other viruses and bacteria not targeted by this PCR panel cannot be excluded; therefore clinical correlation and follow up of serology, culture results, and other molecular studies is required. The results are not intended to be used as the sole means for clinical diagnosis or patient management decisions. This sample was tested at the [facility] using the RiskIQArray Respiratory Panel. It is FDA cleared and has been verified and approved by the [facility] for clinical use on nasopharyngeal swab specimens.The performance of the FilmArrayRP has not been established in individuals who received influenza vaccine. Recent administration ofa nasal influenza vaccine may cause false positive results for Influenza A and/orInfluenza B.VANCOMYCIN LEVEL, [id number] 10:07:00 Test Item Value Reference Range Interpretation Comments VANCOMYCIN TROUGH (BEAKER) (test 10.0 ug/mL 10.0-20.0 code = 522) Please draw 30 min prior to scheduled dose.If vancomycin trough level > 20 mcg/mL, hold next vancomycin dose, and contact MD and pharmacist.BASIC METABOLIC [id number] 07:57:00 Test Item Value Reference Range Interpretation Comments SODIUM (BEAKER) 134 meq/L 136-145 L (test code = 381) POTASSIUM (BEAKER) 4.3 meq/L 3.5-5.1 Specimen slightly (test code = 379) hemolyzed CHLORIDE (BEAKER) 102 meq/L 98-107 (test code = 382) CO2 (BEAKER) (test 25 meq/L 22-29 code = 355) BLOOD UREA NITROGEN 17 mg/dL 7-21 (BEAKER) (test code = 354) CREATININE (BEAKER) 0.72 mg/dL 0.57-1.25 Specimen slightly (test code = 358) hemolyzed GLUCOSE RANDOM 137 mg/dL 70-105 H (BEAKER) (test code = 652) CALCIUM (BEAKER) 8.6 mg/dL 8.4-10.2 (test code = 697) EGFR (BEAKER) (test 79 mL/min/1.73 ESTIMA JOANNA GFR IS code = 1092) sq m NOT ACCURATE CREATININE CLEARANCE IN PREDICTING GLOMERULAR FILTRATION RATE . ESTIMATED GFR I S NOT APPLICABLE FOR DIALYSIS PATIEN TS. CBC W/PLT COUNT & AUTO [id number] 07:43:00 Test Item Value Reference Range Interpretation Comments WHITE BLOOD CELL COUNT (BEAKER) 22.0 K/ L 3.5-10.5 H (test code = 775) RED BLOOD CELL COUNT (BEAKER) 4.00 M/ L 3.93-5.22 (test code = 761) HEMOGLOBIN (BEAKER) (test code = 12.0 GM/DL 11.2-15.7 410) HEMATOCRIT (BEAKER) (test code = 37.6 % 34.1-44.9 411) MEAN CORPUSCULAR VOLUME (BEAKER) 94.0 fL 79.4-94.8 (test code = 753) MEAN CORPUSCULAR HEMOGLOBIN 30.0 pg 25.6-32.2 (BEAKER) (test code = 751) MEAN CORPUSCULAR HEMOGLOBIN CONC 31.9 GM/DL 32.2-35.5 L (BEAKER) (test code = 752) RED CELL DISTRIBUTION WIDTH 14.4 % 11.7-14.4 (BEAKER) (test code = 412) PLATELET COUNT (BEAKER) (test 257 K/CU MM 150-450 code = 756) MEAN PLATELET VOLUME (BEAKER) 9.0 fL 9.4-12.3 L (test code = 754) NUCLEATED RED BLOOD CELLS 0 /100 WBC 0-0 (BEAKER) (test code = 413) NEUTROPHILS RELATIVE PERCENT 88 % (BEAKER) (test code = 429) LYMPHOCYTES RELATIVE PERCENT 6 % (BEAKER) (test code = 430) MONOCYTES RELATIVE PERCENT 5 % (BEAKER) (test code = 431) EOSINOPHILS RELATIVE PERCENT 0 % (BEAKER) (test code = 432) BASOPHILS RELATIVE PERCENT 0 % (BEAKER) (test code = 437) NEUTROPHILS ABSOLUTE COUNT 19.29 K/ L 1.56-6.13 H (BEAKER) (test code = 670) LYMPHOCYTES ABSOLUTE COUNT 1.40 K/ L 1.18-3.74 (BEAKER) (test code = 414) MONOCYTES ABSOLUTE COUNT (BEAKER) 1.06 K/ L 0.24-0.36 H (test code = 415) EOSINOPHILS ABSOLUTE COUNT 0.00 K/ L 0.04-0.36 L (BEAKER) (test code = 416) BASOPHILS ABSOLUTE COUNT (BEAKER) 0.02 K/ L 0.01-0.08 (test code = 417) IMMATURE GRANULOCYTES-RELATIVE 1 % 0-1 PERCENT (BEAKER) (test code = 2801) CBC W/PLT COUNT & AUTO [id number] 10:21:00 Test Item Value Reference Range Interpretation Comments WHITE BLOOD CELL COUNT (BEAKER) 33.0 K/ L 3.5-10.5 H (test code = 775) RED BLOOD CELL COUNT (BEAKER) 4.03 M/ L 3.93-5.22 (test code = 761) HEMOGLOBIN (BEAKER) (test code = 12.3 GM/DL 11.2-15.7 410) HEMATOCRIT (BEAKER) (test code = 37.4 % 34.1-44.9 411) MEAN CORPUSCULAR VOLUME (BEAKER) 92.8 fL 79.4-94.8 (test code = 753) MEAN CORPUSCULAR HEMOGLOBIN 30.5 pg 25.6-32.2 (BEAKER) (test code = 751) MEAN CORPUSCULAR HEMOGLOBIN CONC 32.9 GM/DL 32.2-35.5 (BEAKER) (test code = 752) RED CELL DISTRIBUTION WIDTH 14.3 % 11.7-14.4 (BEAKER) (test code = 412) PLATELET COUNT (BEAKER) (test 254 K/CU MM 150-450 code = 756) MEAN PLATELET VOLUME (BEAKER) 9.0 fL 9.4-12.3 L (test code = 754) NUCLEATED RED BLOOD CELLS 0 /100 WBC 0-0 (BEAKER) (test code = 413) (CELLAVISION MANUAL DIFF)2019-03-20 10:21:00 Test Item Value Reference Range Interpretation Comments NEUTROPHILS - REL 92 % (CELLAVISION)(BEAKER) (test code = 2816) LYMPHOCYTES - REL 3 % (CELLAVISION)(BEAKER) (test code = 2817) MONOCYTES - REL 3 % (CELLAVISION)(BEAKER) (test code = 2818) BANDS - REL (CELLAVISION)(BEAKER) 2 % 0-10 (test code = 2826) NEUTROPHILS - ABS 30.36 K/ul 1.56-6.13 H (CELLAVISION)(BEAKER) (test code = 2830) LYMPHOCYTES - ABS 0.99 K/ul 1.18-3.74 L (CELLAVISION)(BEAKER) (test code = 2831) MONOCYTES - ABS 0.99 K/uL 0.24-0.36 H (CELLAVISION)(BEAKER) (test code = 2832) BANDS - ABS (CELLAVISION)(BEAKER) 0.66 K/uL 0.00-0.80 (test code = 2840) TOTAL COUNTED (BEAKER) (test code 100 = 1351) RBC MORPHOLOGY (BEAKER) (test code Normal = 762) WBC MORPHOLOGY (BEAKER) (test code Normal = 487) PLT MORPHOLOGY (BEAKER) (test code Normal = 486) ARTIFACT (CELLAVISION)(BEAKER) Present (test code = 3432) PLATELET CONCENTRATION Adequate (CELLAVISION)(BEAKER) (test code = 3438) Received comment: User comments: Slide comments:STREP PNEUMONIAE ANTIGEN 2019-03-20 09:40:00 Test Item Value Reference Range Interpretation Comments STREP PNEUMONIAE Presumptive negative Presumptive negative ANTIGEN (BEAKER) for pneumococcal for pneumococcal (test code = 1615) pneumonia - see pneumonia - see comment commen Presumptive negative for pneumococcal pneumonia, suggesting no current or recent pneumococcal infection. Infection due to S. pneumoniae cannot be ruled out since the antigen present in the sample may be below the detection limit of the test. LEGIONELLA ANTIGEN, [id number] 09:40:00 Test Item Value Reference Range Interpretation Comments L. PNEUMOPHILA Negative - see Negative fo r L. SEROGP 1 UR AG comment pneumophila (BEAKER) (test code serogrou p 1 antigen, = 1156) suggesting no r ecent or current infe ction with this serog roup. Legionellosis c annot be ruled out si nce other serogroup s and species may cau se disease. BASIC METABOLIC [id number] 08:58:00 Test Item Value Reference Range Interpretation Comments SODIUM (BEAKER) 138 meq/L 136-145 (test code = 381) POTASSIUM (BEAKER) 4.8 meq/L 3.5-5.1 (test code = 379) CHLORIDE (BEAKER) 105 meq/L 98-107 (test code = 382) CO2 (BEAKER) (test 24 meq/L 22-29 code = 355) BLOOD UREA NITROGEN 15 mg/dL 7-21 (BEAKER) (test code = 354) CREATININE (BEAKER) 0.78 mg/dL 0.57-1.25 (test code = 358) GLUCOSE RANDOM 177 mg/dL 70-105 H (BEAKER) (test code = 652) CALCIUM (BEAKER) 8.5 mg/dL 8.4-10.2 (test code = 697) EGFR (BEAKER) (test 72 mL/min/1.73 ESTIMA JOANNA GFR IS code = 1092) sq m NOT ACCURATE CREATININE CLEARANCE IN PREDICTING GLOMERULAR FILTRATION RATE . ESTIMATED GFR I S NOT APPLICABLE FOR DIALYSIS PATIEN TS. [id number] 08:58:00 Test Item Value Reference Range Interpretation Comments CREATININE (BEAKER) 0.78 mg/dL 0.57-1.25 (test code = 358) EGFR (BEAKER) (test 72 mL/min/1.73 ESTIMA JOANNA GFR IS code = 1092) sq m NOT ACCURATE CREATININE CLEARANCE IN PREDICTING GLOMERULAR FILTRATION RATE . ESTIMATED GFR I S NOT APPLICABLE FOR DIALYSIS PATIEN TS. BASIC METABOLIC [id number] 07:10:00 Test Item Value Reference Range Interpretation Comments SODIUM (BEAKER) 139 meq/L 136-145 (test code = 381) POTASSIUM (BEAKER) 3.5 meq/L 3.5-5.1 (test code = 379) CHLORIDE (BEAKER) 103 meq/L 98-107 (test code = 382) CO2 (BEAKER) (test 28 meq/L 22-29 code = 355) BLOOD UREA NITROGEN 15 mg/dL 7-21 (BEAKER) (test code = 354) CREATININE (BEAKER) 0.73 mg/dL 0.57-1.25 (test code = 358) GLUCOSE RANDOM 89 mg/dL 70-105 (BEAKER) (test code = 652) CALCIUM (BEAKER) 9.7 mg/dL 8.4-10.2 (test code = 697) EGFR (BEAKER) (test 78 mL/min/1.73 ESTIMA JOANNA GFR IS code = 1092) sq m NOT ACCURATE CREATININE CLEARANCE IN PREDICTING GLOMERULAR FILTRATION RATE . ESTIMATED GFR I S NOT APPLICABLE FOR DIALYSIS PATIEN TS. PROTHROMBIN [id number] 07:01:00 Test Item Value Reference Range Interpretation Comments PROTIME (BEAKER) (test code = 12.9 seconds 11.7-14.7 759) INR (BEAKER) (test code = 370) 1.0 <=5.9 RECOMMENDED COUMADIN/WARFARIN INR THERAPY RANGESSTANDARD DOSE: 2.0 - 3.0 Includes: PROPHYLAXIS forvenous thrombosis, systemic embolization; TREATMENT for venous thrombosis and/or pulmonary embolus.HIGH RISK: Target INR is 2.5-3.5 for patients with mechanical heart valves.CBC W/PLT COUNT & AUTO DIFFERENTIAL 2018-06-11 06:45:00 Test Item Value Reference Range Interpretation Comments WHITE BLOOD CELL COUNT (BEAKER) 12.2 K/ L 3.5-10.5 H (test code = 775) RED BLOOD CELL COUNT (BEAKER) 4.61 M/ L 3.93-5.22 (test code = 761) HEMOGLOBIN (BEAKER) (test code = 14.2 GM/DL 11.2-15.7 410) HEMATOCRIT (BEAKER) (test code = 43.5 % 34.1-44.9 411) MEAN CORPUSCULAR VOLUME (BEAKER) 94.4 fL 79.4-94.8 (test code = 753) MEAN CORPUSCULAR HEMOGLOBIN 30.8 pg 25.6-32.2 (BEAKER) (test code = 751) MEAN CORPUSCULAR HEMOGLOBIN CONC 32.6 GM/DL 32.2-35.5 (BEAKER) (test code = 752) RED CELL DISTRIBUTION WIDTH 14.0 % 11.7-14.4 (BEAKER) (test code = 412) PLATELET COUNT (BEAKER) (test 356 K/CU MM 150-450 code = 756) MEAN PLATELET VOLUME (BEAKER) 8.9 fL 9.4-12.3 L (test code = 754) NUCLEATED RED BLOOD CELLS 0 /100 WBC 0-0 (BEAKER) (test code = 413) NEUTROPHILS RELATIVE PERCENT 64 % (BEAKER) (test code = 429) LYMPHOCYTES RELATIVE PERCENT 22 % (BEAKER) (test code = 430) MONOCYTES RELATIVE PERCENT 11 % (BEAKER) (test code = 431) EOSINOPHILS RELATIVE PERCENT 0 % (BEAKER) (test code = 432) BASOPHILS RELATIVE PERCENT 1 % (BEAKER) (test code = 437) NEUTROPHILS ABSOLUTE COUNT 7.83 K/ L 1.56-6.13 H (BEAKER) (test code = 670) LYMPHOCYTES ABSOLUTE COUNT 2.73 K/ L 1.18-3.74 (BEAKER) (test code = 414) MONOCYTES ABSOLUTE COUNT (BEAKER) 1.38 K/ L 0.24-0.36 H (test code = 415) EOSINOPHILS ABSOLUTE COUNT 0.05 K/ L 0.04-0.36 (BEAKER) (test code = 416) BASOPHILS ABSOLUTE COUNT (BEAKER) 0.08 K/ L 0.01-0.08 (test code = 417) IMMATURE GRANULOCYTES-RELATIVE 1 % 0-1 PERCENT (BEAKER) (test code = 7841)
--- OUTSIDE RECORDS SUMMARY | 2019-11-23 23:38 | XMS REPORT ---
[...] End Status Dosage System Date Date Questran [facility] [id number] 4 GM Orally Active 1 packe t Twice a day mixed with water or non-carbon ated drink Montelukast [facility] [id number] 10 MG once a Active TA KE 1 Sodium day TABLET BY MOUTH ONCE A DAY IN THE EVENING Symbicort [facility] [id number] 160-4.5 MCG/ACT Inactive 2 puffs Inhalation Twice a day Celexa [facility] [id number] 40 MG Orally Active 1 table t Once a day Xanax [facility] [id number] 0.5 MG Orally Active 1 tabl et TID PRN severe anxiety Montelukast [facility] [id number] 10 MG Active TAKE 1 Sodium TABLET BY MOUTH ONCE A DAY IN THE EVENING Nasonex [facility] [id number] 50 MCG/ACT Active 2 sprays Nasally Once a in each day nostril ProAir HFA [facility] [id number] 108 (90 Base) Active INH SIOBHAN TWO MCG/ACT PUFFS BY MOUTH EVERY 6 HOURS NEEDED Vitamin D [facility] [id number] 2000 UNIT Active 1 tablet Orally Once a day Acyclovir [facility] [id number] 200 MG Orally Active 1 ca psule Twice a day Claritin ND 31638295088 10 MG Orally Active 1 tabl et Once a day Albuterol ND 78790881605 (2.5 MG/3ML) Active 3 ml as Sulfate 0.083% needed Inhalation Three times a day Glucosamine ND 41290354220 500 MG Orally Active 1 capsule Three times a with a day meal Mucinex Maximum ND 74444662145 1200 MG Orally Activ e 1 tablet Strength every 12 hrs as needed Spiriva [facility] 54607151515 2.5 microgram Active 2 puff s Respimat Inhaled Once a day Prolia [facility] 29674091856 60 MG/ML Active as Subcutaneous directed Dulera ND 26225023821 100-5 MCG/ACT September Active 2 puff s Inhalation 2019 Twice a day Iron Belt 3 [facility] [address]77-18800 MG Active 1 ca psule Orally Once a day Celexa ND 84476222025 40 MG Active TAKE 1 TABLET BY MOUTH ONCE A DAY ProAir HFA [facility] 11475346791 108 (90 Base) Active 2 p uffs as MCG/ACT needed Inhalation every 6 hrs Letairis [facility] 23019399942 10 MG Orally Active 1 tabl et Once a day Citalopram ND 20953301284 40 MG Orally Active 1 ta blet Hydrobromide Once a day Results No Known Results Summary Purpose eClinicalWorks Submission
--- OUTSIDE RECORDS SUMMARY | 2019-11-23 23:38 | XMS REPORT ---
[...] Medications Results No Known Results Summary Purpose eClinicalBantr Submission
--- OUTSIDE RECORDS SUMMARY | 2019-11-23 23:38 | XMS REPORT ---
[...] Start End Status Dosage System Date Date Macy 3 [facility] [address] MG Active 1 ca psule Orally Once a day Celexa [facility] 42065702355 40 MG Active TAKE 1 TABLET BY MOUTH ONCE A DAY Citalopram [facility] 88769074365 40 MG Orally Active 1 ta blet Hydrobromide Once a day Acyclovir [facility] 75433600210 200 MG Orally Active 1 ca psule Twice a day Montelukast [facility] 76733420896 10 MG Active TAKE 1 Sodium TABLET BY MOUTH ONCE A DAY IN THE EVENING Symbicort [facility] 92332520718 80-4.5 MCG/ACT Active 2 p uffs Inhalation Twice a day Xanax [facility] 57631755757 0.5 MG Orally Active 1 tabl et TID PRN severe anxiety Glucosamine ND 96163783236 500 MG Orally Active 1 capsule Three times a with a yris l day Celexa ND 10103265683 40 MG Orally Active 1 table t Once a day ProAir HFA [facility] 90747608906 108 (90 Base) Active INH SIOBHAN TWO MCG/ACT PUFFS BY MOUTH EVERY 6 HOURS NEEDED Nasonex ND 43263283823 50 MCG/ACT Active 2 sprays in Nasally Once a each day nostril Spiriva Respimat [facility] 44020496525 2.5 microgram Activ e 2 puffs Inhaled Once a day Letairis [facility] 09668694234 10 MG Orally Active 1 tabl et Once a day Claritin [facility] 30748793290 10 MG Orally Active 1 tabl et Once a day Albuterol [facility] 46634017464 (2.5 MG/3ML) Active 3 ml as Sulfate 0.083% needed Inhalation Three times a day Mucinex Maximum [facility] 62578885009 1200 MG Orally Activ e 1 tablet as Strength every 12 hrs needed Prolia [facility] 17111935726 60 MG/ML Active as directed Subcutaneous ProAir HFA [facility] 69421819954 108 (90 Base) Active 2 p uffs as MCG/ACT needed Inhalation every 6 hrs Questran [facility] 69019757865 4 GM Orally Active 1 packe t Twice a day mixed with water or non-carbona joanna drink Vitamin D [facility] 05120086734 2000 UNIT Active 1 tablet Orally Once a day Montelukast ND 14795100099 10 MG once a Active TA KE 1 Sodium day TABLET BY MOUTH ONCE A DAY IN THE EVENING Results No Known Results Summary Purpose eClinicalWorks Submission
--- OUTSIDE RECORDS SUMMARY | 2019-11-23 23:38 | XMS REPORT ---
:1945 Author Organization eClinicalWorks Care Team Providers Name Role Phone Ty Refugio Provider Role Unavailable Allergies No Known Allergies Problems Problem Type Condition Code Onset Dates Condition Statu s Problem Chronic obstructive pulmonary J44.9 Active disease, unspecified COPD type Problem Left thyroid nodule E04.1 Active Problem 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 Problem Acute exacerbation of chronic J44.1 Active obstructive pulmonary disease (COPD) Problem Pulmonary fibrosis J84.10 Active Problem Generalized anxiety disorder F41.1 Active Problem Current moderate episode of major F32.1 Active depressive disorder without prior episode Problem Acute on chronic respiratory J96.20 Active failure, unspecified whether with hypoxia or hypercapnia Problem Panic disorder [episodic paroxysmal F41.0 Active anxiety] Problem Failure to thrive in adult R62.7 A ctive Problem Shingles B02.9 Active Problem Age-related osteoporosis without M81.0 Active current pathological fracture Problem Depression with anxiety F41.8 Acti ve Problem Seasonal allergies J30.2 Active Problem Fatty liver K76.0 Active Problem 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
--- OUTSIDE RECORDS SUMMARY | 2019-11-23 23:38 | XMS REPORT ---
:1945 Author Organization eClinicalWorks Care Team Providers Name Role Phone Ty Refugio Provider Role Unavailable Allergies, Adverse Reactions, Alerts Substance Reaction Event Type Bactrim DS Info Not Available Drug Allergy Problems Problem Type Condition Code Onset Dates Condition Statu s Assessment Depression with anxiety F41.8 Acti ve Assessment Failure to thrive in adult R62.7 A ctive Assessment 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 Assessment Seasonal allergies J30.2 Active Assessment Panic disorder [episodic paroxysmal F41.0 Active anxiety] Problem Seasonal allergies J30.2 Active Assessment Fatty liver K76.0 Active Problem 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 Assessment Chronic obstructive pulmonary J44.9 Active disease, unspecified COPD type Problem Chronic obstructive pulmonary J44.9 Active disease, unspecified COPD type Problem Left thyroid nodule E04.1 Active Problem 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 Problem Acute exacerbation of chronic J44.1 Active obstructive pulmonary disease (COPD) Problem Pulmonary fibrosis J84.10 Active Assessment 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 Assessment Age-related osteoporosis without M81.0 Active current pathological fracture Problem Generalized anxiety disorder F41.1 Active Assessment Generalized anxiety disorder F41.1 Active Problem Current moderate episode of major F32.1 Active depressive disorder without prior episode Problem Acute on chronic respiratory J96.20 Active failure, unspecified whether with hypoxia or hypercapnia Problem Panic disorder [episodic paroxysmal F41.0 Active anxiety] Problem Failure to thrive in adult R62.7 A ctive Assessment Acute exacerbation of chronic J44.1 Active obstructive pulmonary disease (COPD) Assessment Current moderate episode of major F32.1 Active depressive disorder without prior episode Assessment Pulmonary fibrosis J84.10 Active Problem Shingles B02.9 Active Problem Age-related osteoporosis without M81.0 Active current pathological fracture Problem Depression with anxiety F41.8 Acti ve Problem Fatty liver K76.0 Active Medications Medication Code Code Instructions Start End Status Dosage System Date Date Letairis [facility] 29310220175 10 MG Orally Active 1 tabl et Once a day Albuterol [facility] 44367696078 (2.5 MG/3ML) Active 3 ml as Sulfate 0.083% needed Inhalation Three times a day ProAir HFA [facility] 36592888431 108 (90 Base) Active 2 p uffs as MCG/ACT needed Inhalation every 6 hrs Claritin [facility] 34987118752 10 MG Orally Active 1 tabl et Once a day Nasonex ND 42198512848 50 MCG/ACT Active 2 sprays Nasally Once a in each day nostril Mucinex Maximum [facility] 33775636841 1200 MG Orally Activ e 1 tablet Strength every 12 hrs as needed Montelukast ND 66444962108 10 MG once a Active TA KE 1 Sodium day TABLET BY MOUTH ONCE A DAY IN THE EVENING Trelegy Ellipta [facility] 57093914490 100-62.5-25 Active 1 puff MCG/INH Inhalation Once a day Prolia [facility] 76477573038 60 MG/ML Active as Subcutaneous directed Vitamin D [facility] 50917492205 2000 UNIT Active 1 tablet Orally Once a day Citalopram [facility] 39231677815 40 MG Orally Active 1 ta blet Hydrobromide Once a day Xanax [facility] 53041462747 0.5 MG Orally Active 1 tabl et TID PRN severe anxiety Glucosamine ND 79832103712 500 MG Orally Active 1 capsule Three times a with a day meal [place] 3 [facility] [address] MG Active 1 ca psule Orally Once a day Symbicort [facility] 56007074618 80-4.5 MCG/ACT November 13, Inactive 2 puffs Inhalation 2019 Twice a day Questran [facility] 96687764519 4 GM Orally Active 1 packe t Twice a day mixed with water or non-carbon ated drink Dulera ND 77809382578 100-5 MCG/ACT September Active 2 puff s Inhalation 2019 Twice a day Acyclovir ND 11691587939 200 MG Orally Active 1 ca psule Twice a day Spiriva ND 30669693107 2.5 microgram November 13, Inactive 2 puf fs Respimat Inhaled Once a 2019 day Results No Known Results Summary Purpose eClinicalWorks Submission
[2019-11-23] MEDS ORDERED: IPRATROPIUM BROM 0.5MG/2.5ML ONE (23:55)
[2019-11-23] MEDS ORDERED: LEVALBUTEROL 1.25 MG/3 ML NEB ONE (23:56)
[2019-11-24 00:07] LABS: Absolute Lymphocytes (CBC) 1.3 K/uL (0.7-4.9); Basophils % 0.5 % (0-1.3); Hematocrit 34.1 % (36.0-45.0); Lymphocytes % 7.2 % (15.3-44.8); MPV 7.9 fL (7.6-11.3); RBC Red Blood Cell Count 3.68 M/uL (3.86-4.86)
[2019-11-24 00:11] LABS: Protime INR 0.94
[2019-11-24 00:19] LABS: Blood Gas Oxyhemoglobin 97.9 % (94-97); Blood O2 Saturation 99.6 % (92-98.5)
[2019-11-24] MEDS ORDERED: AZITHROMYCIN 500 MG INJ IVPB ONE (00:22)
[2019-11-24] MEDS ORDERED: NA CHLORIDE 0.9% 250 ML ONE (00:22)
[2019-11-24 00:26] LABS: ALT/SGPT 24 U/L (12-78); AST/SGOT 20 U/L (15-37); Alkaline Phosphatase 83 U/L (45-117); BUN Blood Urea Nitrogen 15 mg/dL (7-18); Bicarbonate 24 mmol/L (21-32); Bilirubin Direct < 0.1 mg/dL (0-0.2); Bilirubin Total 0.2 mg/dL (0.2-1.0); CKMB Creatine Kinase MB 1.6 ng/mL (0.3-3.6); Creatine Phosphokinase 53 U/L (26-192); Glucose Level 222 mg/dL (74-106); Lipase 124 U/L (73-393); NT PRO-BNP 554 pg/mL (<450); Potassium 3.8 mmol/L (3.5-5.1); Protein, Total 6.4 g/dL (6.4-8.2); Sodium Level 139 mmol/L (136-145); Troponin (Emerg Dept Use Only) < 0.02 ng/mL (0.0-0.045)
[2019-11-24] MEDS ORDERED: ALBUTEROL INHALER 60 PUFF/8 GM IH ONE (01:07)
--- NOTE | 2019-11-24 02:02 | P.HP ---
Certification for Inpatient Patient admitted to: Inpatient With expected LOS: >2 Midnights Practitioner: I am a practitioner with admitting privileges, knowledge of patient current condition, hospital course, and medical plan of care. Services: Services provided to patient in accordance with Admission requirements found in Title 42 Section 412.3 of the Code of Federal Regulations Patient History Date of Service: 11/24/19 Reason for admission: Shortness of breath and fever History of Present Illness: 73-year-old woman with a history of COPD, pulmonary fibrosis, pulmonary hype rtension, chronic respiratory failure on 3 L of oxygen by nasal cannula at baseline was brought to the emergency department by EMS due to an episode of fever and shortness of breath. Patient stated she was in respiratory distress, felt better under shows on the way to the hospital. She partially improved with breathing treatment given in the ED. She was on BiPAP briefly. Chest x-ray done in the ED demonstrated diffuse pulmonary fibrosis and possible superimposed diffuse infiltrate. Patient states she was febrile up to 101 prior to coming to the ED. Rapid flu test is negative. Patient is being screened for COVID 19. She was COVID 19 negative during her last hospitalization here 2 weeks ago. Patient has been weaned off BiPAP to oxygen by nasal cannula. She states she feels better than before. She is admitted for further management of COPD exacerbation and possible pneumonia. Allergies Sulfa (Sulfonamide Antibiotics) Allergy (Intermediate, Verified 11/24/19 04:52) Hives/Rash trimethoprim [From Bactrim] Allergy (Intermediate, Verified 11/24/19 04:52) Rash sulfamethoxazole [From Bactrim] Allergy (Verified 11/24/19 04:52) Unknown Home Medications: Albuterol Neb [Proventil 0.083% Neb Soln] 1 amp IH Q4HP PRN 11/07/19 Albuterol Sulfate [Proair Hfa] 8.5 gm IH Q4HP PRN 11/07/19 Ambrisentan [Letairis] 10 mg PO DAILY 11/07/19 Cholecalciferol (Vitamin D3) [Vitamin D3] 2,000 unit PO DAILY 11/07/19 Citalopram [Celexa*] 40 mg PO DAILY 11/07/19 Glucosamine HCl 500 mg PO DAILY 11/07/19 Guaifenesin [Mucinex] 1,200 mg PO DAILY 11/07/19 Montelukast [Singulair*] 10 mg PO DAILY 11/07/19 [place]-3 Fatty Acids [[place]-3] 3,000 mg PO DAILY 11/07/19 Tiotropium [Spiriva Handihaler*] 2 puff IH DAILY 11/07/19 Turmeric Root Extract [Turmeric] 500 mg PO DAILY 11/07/19 predniSONE [Prednisone*] 20 mg PO TID 11/07/19 ALPRAZolam [Xanax*] 0.5 mg PO TID PRN 11/08/19 Acyclovir [Zovirax] 200 mg PO DAILY 11/08/19 Fluticasone/Umeclidin/Vilanter [Trelegy Ellipta 100-62.5-25] 1 each IH DAILY #30 blst.w.dev 11/09/19 - Past Medical/Surgical History Diabetic: No -: shingles -: copd -: depression with anxiety -: mycobacterium avium -: neuropathy, -: fatty liver -: osteoporosis -: left upper lobectomy -: l kidney cyst -: tonsillectomy -: csection -: tubal ligation - Family History Mother -: Lung disease Notes: copd 1978 Father -: Liver disease Notes: cirrhosis Brother -: Cancer Notes: Leukemia Sister -: Lung disease - Social History Alcohol use: Yes CD- Drugs: No Caffeine use: Yes Review of Systems Other: Except as documented, all other systems reviewed and negative. Physical Examination - Physical Exam General: Alert, In no apparent distress, Oriented x3 HEENT: Normocephalic, Mucous membr. moist/pink, Sclerae nonicteric Neck: Supple, JVD not distended Respiratory: Crackles/rales (Bilateral), Expiratory wheezes Cardiovascular: No edema, Regular rate/rhythm, Normal S1 S2, No murmurs Capillary refill: <2 Seconds Gastrointestinal: Normal bowel sounds, Soft and benign, Non-distended, No tenderness Musculoskeletal: No swelling, No erythema Integumentary: No rashes Neurological: Normal speech, Normal strength at 5/5 x4 extr - Studies Laboratory Data (last 24 hrs) 11/23/19 23:45: PT 11.1, INR 0.94, APTT 33.5 11/23/19 23:45: WBC 17.5 H, Hgb 11.3 L, Hct 34.1 L, Plt Count 244 11/23/19 23:45: Sodium 139, Potassium 3.8, BUN 15, Creatinine 0.74, Glucose 222 H, Magnesium 3.0 H D, Total Bilirubin 0.2, AST 20, ALT 24, Alkaline Phosphatase 83, Lipase 124 Microbiology Data (last 24 hrs): 11/24/19 00:25 Nasopharnyx Influenza Type A Antigen Screen - Final 11/24/19 00:25 Nasopharnyx Influenza Type B Antigen Screen - Final 11/24/19 00:25 Nasopharnyx Coronavirus COVID-19 PCR - Final Assessment and Plan - Problems (Diagnosis) (1) Pneumonia Current Visit: Yes Status: Acute (2) Acute and chronic respiratory failure with hypoxia Current Visit: No Status: Acute (3) COPD exacerbation Current Visit: No Status: Acute (4) Pulmonary fibrosis Current Visit: No Status: Acute (5) Pulmonary hypertension Current Visit: No Status: Acute - Plan Admit to the medical floor. Start IV Solu-Medrol, IV Rocephin and Zithromax Scheduled bronchodilators. Droplet isolation COVID 19 screen is pending Titrate oxygen BiPAP PRN - Advance Directives Does patient have a Living Will: Yes Does patient have a Durable POA for Healthcare: Yes - Code Status/Comfort Care Code Status: Full Code
[2019-11-24] MEDS ORDERED: ACETAMINOPHEN 500 MG TAB PO PRN (04:39)
[2019-11-24] MEDS ORDERED: ONDANSETRON 4 MG/2 ML VIAL IV PRN (04:39)
[2019-11-24 04:53] VITALS: BMI 18.4
[2019-11-24 05:02] LABS: Urine Appearance CLEAR; Urine Bilirubin NEGATIVE (NEG); Urine Blood NEGATIVE (NEG); Urine Color YELLOW; Urine Glucose NEGATIVE (NEG); Urine Protein NEGATIVE (NEG); Urine Specific Gravity 1.015 (1.005-1.030); Urine Urobilinogen 0.2 mg/dL (0.2-1.0); Urine pH 6.5 (5.0-7.0)
[2019-11-24 05:03] LABS: Urine Microscopic Reflex NO UMIC
--- NOTE | 2019-11-24 06:18 | EKG ---
Test Date: 2019-11-23 Test Time: 23:49:50 Collar Closer Lockstitch: CORA MEASUREMENT RESULTS: Intervals: Rate: 107 [place]: 122 QRSD: 82 QT: 338 QTc: 451 [place]: P: 89 WA: 122 QRS: 268 T: 11 INTERPRETIVE STATEMENTS: Sinus tachycardia Right superior axis deviation Right ventricular hypertrophy Inferior infarct, age undetermined Possible Anterior infarct, age undetermined Abnormal ECG Compared to ECG 03/19/2019 20:37:21 Right ventricular hypertrophy now present Myocardial infarct finding still present Electronically Signed On 11-24-19 06:17:34 CDT by Patrick Bhatt
[2019-11-24] MEDS: CEFTRIAXONE/SWI 1gm 1 GM/10 ML SYR IV SCH (06:23)
[2019-11-24] MEDS: METHYLPREDNISOLONE 40 MG INJ IV SCH ×3 (06:23→18:14)
[2019-11-24] MEDS: IPRATROPIUM BROM 0.5MG/2.5ML NEB SCH ×3 (08:00→20:00)
[2019-11-24] MEDS: ALBUTEROL 2.5 MG/3 ML NEB SOL NEB SCH ×3 (08:00→20:00)
--- NOTE | 2019-11-24 08:18 | RAD REPORT ---
EXAM DESCRIPTION: Jade Single View11/24/2019 12:12 am CLINICAL HISTORY: Congestion COMPARISON: November 07, 2019 FINDINGS: Marked pulmonary fibrosis. Lungs appear clear of acute infiltrate. The heart is normal size
[2019-11-24] MEDS: ENOXAPARIN 40 MG/0.4 ML SQ SCH (08:20)
[2019-11-24] MEDS ORDERED: POTASSIUM CL SA 10 MEQ TAB PO ONE (09:00)
[2019-11-24] MEDS: ALPRAZOLAM 0.25 MG TABLET PO PRN (12:47)
[2019-11-24] MEDS ORDERED: ALBUTEROL 2.5 MG/3 ML NEB SOL IH PRN (18:32)
[2019-11-24] MEDS: ALPRAZOLAM 0.5 MG TABLET PO PRN (20:57)
[2019-11-24] MEDS: CITALOPRAM 10 MG TABLET PO SCH (20:58)
[2019-11-24] MEDS: MONTELUKAST 10 MG TAB PO SCH (20:59)
[2019-11-24] MEDS: AZITHROMYCIN IV 500 MG in NA CHLORIDE 0.9% 250 ML IVPB SCH (21:00)
[2019-11-24] MEDS: ACYCLOVIR 400 MG TABLET PO SCH (21:04)
[2019-11-24] MEDS: ENSURE ENLIVE 237 ML CAN PO SCH (21:22)
[2019-11-25] MEDS: METHYLPREDNISOLONE 40 MG INJ IV SCH ×4 (00:16→16:12)
[2019-11-25] MEDS: ALBUTEROL 2.5 MG/3 ML NEB SOL NEB SCH ×4 (00:40→20:00)
[2019-11-25] MEDS: IPRATROPIUM BROM 0.5MG/2.5ML NEB SCH ×4 (00:40→20:00)
[2019-11-25 04:44] LABS: Absolute Lymphocytes (CBC) 0.9 K/uL (0.7-4.9); Basophils % 0.1 % (0-1.3); Hematocrit 29.9 % (36.0-45.0); Lymphocytes % 5.4 % (15.3-44.8); MPV 7.8 fL (7.6-11.3); RBC Red Blood Cell Count 3.26 M/uL (3.86-4.86)
[2019-11-25 05:01] LABS: BUN Blood Urea Nitrogen 18 mg/dL (7-18); Bicarbonate 25 mmol/L (21-32); Glucose Level 145 mg/dL (74-106); Magnesium 2.6 mg/dL (1.8-2.4); Phosphorus 2.5 mg/dL (2.5-4.9); Potassium 4.4 mmol/L (3.5-5.1); Sodium Level 142 mmol/L (136-145)
[2019-11-25] MEDS: CEFTRIAXONE/SWI 1gm 1 GM/10 ML SYR IV SCH (06:10)
--- NOTE | 2019-11-25 08:55 | P.PN ---
Subjective Date of Service: 11/25/19 Chief Complaint: Shortness of breath and fever Patient states she feels better than yesterday. She states her shortness of breath of breath have improved. COVID 19 is negative. She does have some tremors and complaining of anxiety. Physical Examination - Vital Signs Temperature: 98.1 F Blood Pressure: 100/51 Pulse: 80 Respirations: 18 Pulse Ox (%): 93 - Physical Exam General: Alert, In no apparent distress, Oriented x3 HEENT: Mucous membr. moist/pink, Sclerae nonicteric Neck: Supple, JVD not distended Respiratory: Crackles/rales (Diffuse) Cardiovascular: No edema, Regular rate/rhythm, Normal S1 S2 Gastrointestinal: Normal bowel sounds, Soft and benign, No tenderness Musculoskeletal: No swelling, No erythema Integumentary: No rashes Assessment And Plan - Current Problems (Diagnosis) (1) Pneumonia Current Visit: Yes Status: Acute (2) Acute and chronic respiratory failure with hypoxia Current Visit: No Status: Acute (3) COPD exacerbation Current Visit: No Status: Acute (4) Pulmonary fibrosis Current Visit: No Status: Acute (5) Pulmonary hypertension Current Visit: No Status: Acute - Plan Continue IV Rocephin and Zithromax Continue Scheduled bronchodilators. Start Mucinex Scal down on IV steroid Wean oxygen to baseline 3 L by nasal cannula as tolerated Continue home medications for pulmonary hypertension.
[2019-11-25] MEDS: ENSURE ENLIVE 237 ML CAN PO SCH ×2 (08:57→20:20)
[2019-11-25] MEDS: VITAMIN D 1000 UNIT TAB PO SCH (08:58)
[2019-11-25] MEDS: GUAIFENESIN 600 MG SA TAB PO SCH (08:58)
[2019-11-25] MEDS: ENOXAPARIN 40 MG/0.4 ML SQ SCH (08:58)
[2019-11-25] MEDS: DOCOSAHEXANOIC AC/EPA 1000 MG PO SCH (08:58)
[2019-11-25] MEDS: ACYCLOVIR 400 MG TABLET PO SCH ×2 (08:59→20:25)
[2019-11-25] MEDS ORDERED: GLUCOSAMINE HCL 500 MG PO SCH (09:00)
[2019-11-25] MEDS ORDERED: ACYCLOVIR 200 MG PO SCH (09:00)
[2019-11-25] MEDS ORDERED: TIOTROPIUM 5 SPRAYS/INHALER IH SCH ×2 (09:00)
[2019-11-25] MEDS: AMBRISENTAN 10 MG PO SCH ×2 (09:00→13:30)
[2019-11-25] MEDS ORDERED: OMEGA PO SCH (09:00)
[2019-11-25] MEDS ORDERED: MONTELUKAST 10 MG TAB PO SCH (09:00)
[2019-11-25] MEDS ORDERED: HOME MED 1 EA UNK (Cholecalciferol (Vitamin D3) [Vitamin D3] 2,000 UNIT) PO SCH (09:00)
[2019-11-25] MEDS ORDERED: HOME MED 1 EA UNK (Fluticasone/Umeclidin/Vilanter [Trelegy Ellipta 100-62.5-25] 1 EACH) IH SCH (09:00)
[2019-11-25] MEDS ORDERED: ACYCLOVIR 400 MG TABLET PO SCH (09:00)
[2019-11-25] MEDS ORDERED: CITALOPRAM 10 MG TABLET PO SCH (09:00)
[2019-11-25] MEDS ORDERED: GUAIFENESIN 1200 MG PO SCH (09:00)
[2019-11-25] MEDS ORDERED: FATTY ACIDS PO SCH (09:00)
[2019-11-25] MEDS: ALPRAZOLAM 0.5 MG TABLET PO PRN ×2 (09:02→20:20)
[2019-11-25] MEDS: ALPRAZOLAM 0.25 MG TABLET PO PRN (13:29)
[2019-11-25] MEDS: CITALOPRAM 10 MG TABLET PO SCH (20:20)
[2019-11-25] MEDS: MONTELUKAST 10 MG TAB PO SCH (20:20)
[2019-11-25] MEDS: AZITHROMYCIN IV 500 MG in NA CHLORIDE 0.9% 250 ML IVPB SCH (22:10)
[2019-11-26] MEDS: METHYLPREDNISOLONE 40 MG INJ IV SCH ×2 (00:12→08:21)
[2019-11-26] MEDS: IPRATROPIUM BROM 0.5MG/2.5ML NEB SCH ×2 (04:30→08:26)
[2019-11-26] MEDS: CEFTRIAXONE/SWI 1gm 1 GM/10 ML SYR IV SCH (04:30)
[2019-11-26] MEDS: ALBUTEROL 2.5 MG/3 ML NEB SOL NEB SCH ×2 (04:30→08:26)
[2019-11-26 04:50] VITALS: TEMP 98.5
[2019-11-26 06:23] LABS: Absolute Lymphocytes (CBC) 1.1 K/uL (0.7-4.9); Basophils % 0.3 % (0-1.3); Hematocrit 31.4 % (36.0-45.0); MPV 8.7 fL (7.6-11.3)
[2019-11-26 07:36] VITALS: BP 102/53
[2019-11-26] MEDS: VITAMIN D 1000 UNIT TAB PO SCH (08:21)
[2019-11-26] MEDS: AMBRISENTAN 10 MG PO SCH (08:21)
[2019-11-26] MEDS: GUAIFENESIN 600 MG SA TAB PO SCH (08:22)
[2019-11-26] MEDS: ALPRAZOLAM 0.25 MG TABLET PO PRN (08:22)
[2019-11-26] MEDS: ENOXAPARIN 40 MG/0.4 ML SQ SCH (08:22)
[2019-11-26] MEDS: DOCOSAHEXANOIC AC/EPA 1000 MG PO SCH (08:22)
[2019-11-26] MEDS: ENSURE ENLIVE 237 ML CAN PO SCH (08:23)
[2019-11-26] MEDS: ACYCLOVIR 400 MG TABLET PO SCH (08:23)
--- NOTE | 2019-11-26 08:58 | P.DS ---
Admission Date: 11/24/19 Discharge Date: 11/26/19 Disposition: ROUTINE DISCHARGE Discharge Condition: FAIR Reason for Admission: Shortness of breath and fever Consultations: None - Problems (1) Pneumonia Current Visit: Yes Status: Acute (2) Acute and chronic respiratory failure with hypoxia Current Visit: No Status: Acute (3) COPD exacerbation Current Visit: No Status: Acute (4) Pulmonary fibrosis Current Visit: No Status: Acute (5) Pulmonary hypertension Current Visit: No Status: Acute Brief History of Present Illness: 73-year-old woman with a history of COPD, pulmonary fibrosis, pulmonary hypertension, chronic respiratory failure on 3 L of oxygen by nasal cannula at baseline was brought to the emergency department by EMS due to an episode of fever and shortness of breath. Patient stated she was in respiratory distress, felt better under shows on the way to the hospital. She partially improved with breathing treatment given in the ED. She was on BiPAP briefly. Chest x-ray done in the ED demonstrated diffuse pulmonary fibrosis and possible superimposed diffuse infiltrate. Patient states she was febrile up to 101 prior to coming to the ED. Rapid flu test is negative. Patient is being screened for COVID 19. She was COVID 19 negative during her last hospitalization here 2 weeks ago. Patient was weaned off BiPAP to oxygen by nasal cannula in the ER. She was admitted for further management of COPD exacerbation and possible pneumonia. Hospital Course: Patient clinical condition improved gradually with IV steroids, scheduled bronchodilators and IV antibiotics. Her oxygen requirement decreased to baseline of 3 L per nasal can over the course of the hospital stay. Patient states she is back to baseline. She has been ambulating with a baseline oxygen with no issues. Leukocytosis is deemed to be steroid induced. Patient is deemed clinically stable for discharge. She is discharged with a tapering dose of prednisone and oral Levaquin. Vital Signs/Physical Exam: Temp Pulse Resp BP Pulse Ox 98.5 F 89 20 102/53 L 93 11/26/19 07:36 11/26/19 07:36 11/26/19 07:36 11/26/19 07:36 11/26/19 07:36 General: Alert, In no apparent distress HEENT: Normocephalic Neck: Supple, JVD not distended Respiratory: Clear to auscultation bilaterally, Normal air movement Cardiovascular: No edema, Regular rate/rhythm, Normal S1 S2 Gastrointestinal: Normal bowel sounds, Soft and benign, No tenderness Musculoskeletal: No swelling, No erythema Integumentary: No rashes Laboratory Data at Discharge: WBC 18.8 K/uL (4.3-10.9) H 11/26/19 05:43 Hgb 10.3 g/dL (12.0-15.0) L 11/26/19 05:43 Hct 31.4 % (36.0-45.0) L 11/26/19 05:43 Plt Count 262 K/uL (152-406) D 11/26/19 05:43 PT 11.1 SECONDS (9.5-12.5) 11/23/19 23:45 INR 0.94 11/23/19 23:45 APTT 33.5 SECONDS (24.3-36.9) 11/23/19 23:45 Sodium 142 mmol/L (136-145) 11/25/19 04:34 Potassium 4.4 mmol/L (3.5-5.1) 11/25/19 04:34 BUN 18 mg/dL (7-18) 11/25/19 04:34 Creatinine 0.60 mg/dL (0.55-1.3) 11/25/19 04:34 Glucose 145 mg/dL (74-106) H 11/25/19 04:34 Phosphorus 2.5 mg/dL (2.5-4.9) 11/25/19 04:34 Magnesium 2.6 mg/dL (1.8-2.4) H 11/25/19 04:34 Total Bilirubin 0.2 mg/dL (0.2-1.0) 11/23/19 23:45 AST 20 U/L (15-37) 11/23/19 23:45 ALT 24 U/L (12-78) 11/23/19 23:45 Alkaline Phosphatase 83 U/L (45-117) 11/23/19 23:45 Lipase 124 U/L (73-393) 11/23/19 23:45 Home Medications: Albuterol Neb [Proventil 0.083% Neb Soln] 1 amp IH Q4HP PRN 11/07/19 Albuterol Sulfate [Proair Hfa] 8.5 gm IH Q4HP PRN 11/07/19 Ambrisentan [Letairis] 10 mg PO DAILY 11/07/19 Cholecalciferol (Vitamin D3) [Vitamin D3] 2,000 unit PO DAILY 11/07/19 Citalopram [Celexa*] 40 mg PO BEDTIME 11/07/19 Glucosamine HCl 500 mg PO DAILY 11/07/19 Guaifenesin [Mucinex] 1,200 mg PO DAILY 11/07/19 Montelukast [Singulair*] 10 mg PO BEDTIME 11/07/19 [place]-3 Fatty Acids [[place]-3] 3,000 mg PO DAILY 11/07/19 Tiotropium [Spiriva Handihaler*] 2 puff IH DAILY 11/07/19 Turmeric Root Extract [Turmeric] 500 mg PO DAILY 11/07/19 ALPRAZolam [Xanax*] 0.5 mg PO TID PRN 11/08/19 Acyclovir [Zovirax] 200 mg PO BID 11/08/19 Fluticasone/Umeclidin/Vilanter [Trelegy Ellipta 100-62.5-25] 1 each IH DAILY #30 blst.w.dev 11/09/19 levoFLOXacin [Levaquin] 750 mg PO DAILY #5 tab 11/26/19 predniSONE [Deltasone*] 10 mg PO DAILY #30 tab 11/26/19 New Medications: predniSONE [Deltasone*] 10 mg PO DAILY #30 tab levoFLOXacin [Levaquin] 750 mg PO DAILY #5 tab Patient Discharge Instructions: Follow up PCP within 1-2 weeks. Diet: Regular Activity: Ad micky Time spent managing pt's care (in minutes): 36
[2019-11-26 10:14] VITALS: O2SAT 92
[2019-11-26 10:29] LABS: Blood Morphology Comment NOT SEEN (NOT SEEN); Platelet Estimate ADEQ; Urine White Blood Cell Casts OK
--- NOTE | 2019-11-28 15:26 | ER ---
Nurse's Notes [facility] Name: Seema Romo Age: 73 yrs Sex: Female : 1945 Arrival Date: 11/23/2019 Time: 23:33 Bed 8 Private MD: Diagnosis: Severe sepsis without septic shock;Other pneumonia, unspecified organism Presentation: 11/22 23:30 Chief complaint: EMS states: patient has shortness of breath, cough and fever today. mg2 known case COPD on Home O2 \T\4 l/m. her temp at [employer] was 101 and en route it was 99.8. she took motrin \T\ 1930. Coronavirus screen: Surgical mask placed on patient. Patient moved to private room, placed in contact and droplet isolation with eye protection until further assessment. Patient reports a cough. Patient reports shortness of breath or difficulty breathing. Patient reports a measured and/or subjective temperature greater than 100.4F. Patient denies travel on a cruise ship or to a country the [facility] currently lists as an affected area. Patient denies contact with known and/or suspected case of COVID-19. Ebola Screen: No symptoms or risks identified at this time. Initial Sepsis Screen: Does the patient meet any 2 criteria? No. Patient's initial sepsis screen is negative. Does the patient have a suspected source of infection? No. Patient's initial sepsis screen is negative. Risk Assessment: Do you want to hurt yourself or someone else? Patient reports no desire to harm self or others. Onset of symptoms was November 23, 2019. 23:30 Method Of Arrival: EMS: [facility] mg2 23:30 Acuity: VADIM 1 mg2 23:30 Care prior to arrival: Medication(s) given: slou medrol 120 mg, MgSO4 2 gm. mg2 Triage Assessment: 11/23 02:55 Respiratory: the patient reports symptoms have resolved. mg2 02:58 Respiratory: Onset: The symptoms/episode began/occurred gradually. mg2 Historical: - Allergies: 00:07 Bactrim; mg2 00:07 Sulfa (Sulfonamide Antibiotics); mg2 - Home Meds: 01:21 acyclovir 200 mg Oral cap daily [Active]; mg2 02:58 albuterol sulfate 2.5 mg /3 mL (0.083 %) Inhl nebu 3 mL 4 times per day [Active]; mg2 citalopram 40 mg tab 1 tab once daily [Active]; Glucosamine 500 mg Oral tab daily [Active]; Letairis 5 mg Oral tab 1 tab once daily [Active]; montelukast 10 mg Oral tab 1 tab once daily [Active]; Mucinex 1,200 mg Oral Ta12 daily [Active]; [place]-3 350 mg-235 mg- 90 mg-597 mg Oral cpDR daily [Active]; ProAir HFA 90 mcg/actuation inhalation HFAA 2 puffs every 4 hours [Active]; Prolia 60 mg/mL subcutaneous syrg 1 mL every 6 mo [Active]; singular 10mg 1 tab daily, Flovent 220mcg inh 1 puff BID, Proair 90mcg inh 2 puff QID prn, Celexa 40mg daily, Spiriva 2.5mcg daily , Acyclovir 200mg 1 tab BID, [Active]; Spiriva Respimat 2.5 mcg/actuation inhalation mist 2 puffs once daily [Active]; Symbicort 160-4.5 mcg/actuation inhalation HFAA 2 puffs 2 times per day [Active]; turmeric root extract Oral daily [Active]; Vitamin D Oral 2000 unit daily [Active]; Xanax 0.5 mg Oral tab as needed [Active]; - PMHx: 00:07 Anxiety; COPD; Depression; degenerative joint disease; fatty liver; Mycobacterium Avium mg2 Complex; neuropathy; Osteoporosis; shingles; - Immunization history:: Flu vaccine status is unknown. - Social history:: Patient/guardian denies using alcohol, street drugs, The patient lives with spouse, Smoking status: Patient denies any tobacco usage or history of. - Family history:: not pertinent. Screenin:08 Abuse screen: Denies threats or abuse. Denies injuries from another. Nutritional mg2 screening: No deficits noted. Tuberculosis screening: No symptoms or risk factors identified. Fall Risk IV access (20 points). Assessment: 00:07 General: Appears distressed, Behavior is calm, cooperative. Pain: Denies pain. Neuro: mg2 Level of Consciousness is awake, alert, obeys commands, Oriented to person, place, time, situation. Cardiovascular: Capillary refill < 3 seconds Rhythm is. Cardiovascular: Rhythm is sinus tachycardia. Respiratory: Airway is patent Respiratory: Reports shortness of breath cough that is. GI: No signs and/or symptoms were reported involving the gastrointestinal system. : No signs and/or symptoms were reported regarding the genitourinary system. EENT: No signs and/or symptoms were reported regarding the EENT system. Derm: Skin is intact, is healthy with good turgor, Skin is pink, warm \T\ dry. normal. Musculoskeletal: Circulation, motion, and sensation intact. Capillary refill < 3 seconds. 01:19 Respiratory: Airway Respiratory effort is even, Respiratory pattern is regular, mg2 symmetrical, tachypnea Breath sounds are clear bilaterally. in mediastinum, right upper lobe, left upper lobe, right middle lobe, left lower lobe, left posterior upper lobe, right posterior upper lobe, left posterior lower lobe and right posterior middle lobe. 01:20 Reassessment: patient off from bipap. she is tolerating well the nasal cannula. mg2 02:58 Reassessment: Patient appears in no apparent distress at this time. Patient and/or mg2 family updated on plan of care and expected duration. Pain level reassessed. Patient is alert, oriented x 3, equal unlabored respirations, skin warm/dry/pink. 4th floor nurse will call me back for report. Vital Signs: 11/22 23:30 BP 102 / 51; Pulse 102; Resp 28; Temp 98.5; Pulse Ox 100% on Non-rebreather mask; mg2 11/23 00:41 BP 102 / 51; Pulse 99; Resp 26; Pulse Ox 94% on BiPAP; mg2 01:19 BP 97 / 55; Pulse 92; Resp 25; Pulse Ox 99% on 3 lpm NC; mg2 02:26 BP 94 / 51; Pulse 84; Resp 22; Pulse Ox 99% on R/A; mg2 03:15 BP 90 / 51; Pulse 82; Resp 20; Temp 97.5(O); Pulse Ox 99% on 3 lpm NC; Pain 0/10; mg2 ED Course: 11/22 23:33 Patient arrived in ED. cf2 23:36 Dannielle Bentley MD is Attending Physician. ma2 11/23 00:00 Catarino Holland RN is Primary Nurse. mg2 00:06 Triage completed. mg2 00:07 Arm band placed on. mg2 00:07 No provider procedures requiring assistance completed. Maintain EMS IV. Dressing mg2 intact. Good blood return noted. Site clean \T\ dry. Gauge \T\ site: 20 \T\ RFA. 00:08 Patient has correct armband on for positive identification. mg2 00:21 XRAY CXR (1 view) In Process Unspecified. EDMS 01:04 Edison Sanchez is Hospitalizing Provider. ma2 02:54 Patient admitted, IV remains in place. mg2 Administered Medications: 00:29 Drug: AZITHromycin 500 mg Route: IVPB; Infused Over: 1 hrs; Site: right forearm; mg2 01:18 Follow up: Response: No adverse reaction; IV Status: Completed infusion mg2 01:08 Not Given (Physician Discretion): Xopenex 1.25 mg Inhalation once mg2 01:08 Not Given (Physician Discretion): AtroVENT Aerosol 0.5 mg Inhalation once; Every 20 min mg2 for a total of 3 treatments x3 01:08 Drug: Albuterol HFA Inhaler 2 puffs Route: Inhalation; mg2 01:18 Follow up: Response: No adverse reaction mg2 Outcome: 01:04 Decision to Hospitalize by Provider. ma2 03:17 Admitted to Tele accompanied by tech, via wheelchair, room 418, with oxygen, with mg2 chart, Report called to JOLEEN Loo 03:17 Condition: stable 03:17 Instructed on the need for admit, Demonstrated understanding of instructions. 03:25 Patient left the ED. mg2 Signatures: Dispatcher [employer] EDMS Dannielle Bentley MD MD ma2 Catarino Holland RN RN mg2 Sussy Antony 2
--- NOTE | 2019-11-28 15:26 | EDPHYS ---
Physician Documentation [facility] Name: Seema Romo Age: 73 yrs Sex: Female : 1945 Arrival Date: 11/23/2019 Time: 23:33 Bed 8 Private MD: ED Physician Dannielle Bentley HPI: 11/22 23:45 This 73 yrs old Female presents to ER via Unassigned with complaints of ma2 Respiratory Distress. 23:45 The patient has shortness of breath at rest. Onset: The symptoms/episode began/occurred ma2 gradually, 1 day(s) ago. Associated signs and symptoms: Pertinent negatives: non-productive cough, fever, loss of consciousness, nausea. Severity of symptoms: At their worst the symptoms were moderate in the emergency department the symptoms are unchanged. The patient has experienced similar episodes in the past. Historical: - Allergies: 11/23 00:07 Bactrim; mg2 00:07 Sulfa (Sulfonamide Antibiotics); mg2 - Home Meds: 01:21 acyclovir 200 mg Oral cap daily [Active]; mg2 02:58 albuterol sulfate 2.5 mg /3 mL (0.083 %) Inhl nebu 3 mL 4 times per day [Active]; mg2 citalopram 40 mg tab 1 tab once daily [Active]; Glucosamine 500 mg Oral tab daily [Active]; Letairis 5 mg Oral tab 1 tab once daily [Active]; montelukast 10 mg Oral tab 1 tab once daily [Active]; Mucinex 1,200 mg Oral Ta12 daily [Active]; [place]-3 350 mg-235 mg- 90 mg-597 mg Oral cpDR daily [Active]; ProAir HFA 90 mcg/actuation inhalation HFAA 2 puffs every 4 hours [Active]; Prolia 60 mg/mL subcutaneous syrg 1 mL every 6 mo [Active]; singular 10mg 1 tab daily, Flovent 220mcg inh 1 puff BID, Proair 90mcg inh 2 puff QID prn, Celexa 40mg daily, Spiriva 2.5mcg daily , Acyclovir 200mg 1 tab BID, [Active]; Spiriva Respimat 2.5 mcg/actuation inhalation mist 2 puffs once daily [Active]; Symbicort 160-4.5 mcg/actuation inhalation HFAA 2 puffs 2 times per day [Active]; turmeric root extract Oral daily [Active]; Vitamin D Oral 2000 unit daily [Active]; Xanax 0.5 mg Oral tab as needed [Active]; - PMHx: 00:07 Anxiety; COPD; Depression; degenerative joint disease; fatty liver; Mycobacterium Avium mg2 Complex; neuropathy; Osteoporosis; shingles; - Immunization history:: Flu vaccine status is unknown. - Social history:: Patient/guardian denies using alcohol, street drugs, The patient lives with spouse, Smoking status: Patient denies any tobacco usage or history of. - Family history:: not pertinent. ROS: 11/22 23:45 Constitutional: Negative for fever, chills, and weight loss. ma2 All other systems are negative. Exam: 23:45 Constitutional: This is a well developed, well nourished patient who is awake, alert, ma2 and in no acute distress. 23:45 Head/Face: Normocephalic, atraumatic. Neck: Trachea midline, no thyromegaly or masses palpated, and no cervical lymphadenopathy. Supple, full range of motion without nuchal rigidity, or vertebral point tenderness. No Meningismus. Chest/axilla: Normal chest wall appearance and motion. Nontender with no deformity. No lesions are appreciated. Cardiovascular: Regular rate and rhythm with a normal S1 and S2. No gallops, murmurs, or rubs. Normal PMI, no JVD. No pulse deficits. Respiratory: both Lungs have rales basal, and whhezesm equal breath sounds an increased work of breathing, + retractions and nasal flaring. Abdomen/GI: Soft, non-tender, with normal bowel sounds. No distension or tympany. No guarding or rebound. No evidence of tenderness throughout. MS/ Extremity: Pulses equal, no cyanosis. Neurovascular intact. Full, normal range of motion. Neuro: Awake and alert, GCS 15, oriented to person, place, time, and situation. Cranial nerves II-XII grossly intact. Motor strength 5/5 in all extremities. Sensory grossly intact. Cerebellar exam normal. Normal gait. 23:45 Constitutional: The patient appears awake, in obvious distress, severely distressed. Vital Signs: 23:30 BP 102 / 51; Pulse 102; Resp 28; Temp 98.5; Pulse Ox 100% on Non-rebreather mask; mg2 11/23 00:41 BP 102 / 51; Pulse 99; Resp 26; Pulse Ox 94% on BiPAP; mg2 01:19 BP 97 / 55; Pulse 92; Resp 25; Pulse Ox 99% on 3 lpm NC; mg2 02:26 BP 94 / 51; Pulse 84; Resp 22; Pulse Ox 99% on R/A; mg2 03:15 BP 90 / 51; Pulse 82; Resp 20; Temp 97.5(O); Pulse Ox 99% on 3 lpm NC; Pain 0/10; mg2 MDM: 11/22 23:36 Patient medically screened. [facility] 23:45 Differential diagnosis: Anxiety Reaction asthma, Bronchitis CHF exacerbation, ma2 Pneumothorax pulmonary edema, reactive airway disease. Antibiotic administration: The patient is discharged and will get outpatient antibiotics, Zithromax is given. Data reviewed: vital signs, nurses notes. 11/23 01:02 ED course: . [facility] 11/22 23:44 Order name: ABG [facility] 11/22 23:44 Order name: Blood Culture Adult (2) [facility] 11/22 23:44 Order name: BMP; Complete Time: 00:59 [facility] 11/22 23:44 Order name: CBC with Diff [facility] 11/22 23:44 Order name: Ckmb; Complete Time: 00:59 [facility] 11/22 23:44 Order name: CPK; Complete Time: 00:59 [facility] 11/22 23:44 Order name: D-Dimer [facility] 11/22 23:44 Order name: Hepatic Function; Complete Time: 00:59 [facility] 11/22 23:44 Order name: Lipase; Complete Time: 00:59 [facility] 11/22 23:44 Order name: Magnesium; Complete Time: 00:59 [facility] 11/22 23:44 Order name: NT PRO-BNP; Complete Time: 00:59 [facility] 11/22 23:44 Order name: PT-INR [facility] 11/22 23:44 Order name: Ptt, Activated [facility] 11/22 23:44 Order name: Troponin (emerg Dept Use Only); Complete Time: 00:59 [facility] 11/22 23:44 Order name: BIPAP [facility] 11/22 23:44 Order name: XRAY CXR (1 view) [facility] 11/22 23:44 Order name: EKG; Complete Time: 23:46 ut11/22 23:44 Order name: Cardiac monitoring; Complete Time: 00:10 ut11/22 23:44 Order name: EKG - Nurse/Tech; Complete Time: 00:10 11/22 23:44 Order name: IV Saline Lock; Complete Time: 00:10 11/22 23:44 Order name: Labs collected and sent; Complete Time: 00:10 ut11/22 23:44 Order name: O2 Per Protocol; Complete Time: 00:10 11/22 23:44 Order name: O2 Sat Monitoring; Complete Time: 00:10 11/22 23:44 Order name: Flu 11/23 00:28 Order name: COVID-19; Complete Time: 01:01 lp1 Administered Medications: 00:29 Drug: AZITHromycin 500 mg Route: IVPB; Infused Over: 1 hrs; Site: right forearm; mg2 01:18 Follow up: Response: No adverse reaction; IV Status: Completed infusion mg2 01:08 Not Given (Physician Discretion): Xopenex 1.25 mg Inhalation once mg2 01:08 Not Given (Physician Discretion): AtroVENT Aerosol 0.5 mg Inhalation once; Every 20 min mg2 for a total of 3 treatments x3 01:08 Drug: Albuterol HFA Inhaler 2 puffs Route: Inhalation; mg2 01:18 Follow up: Response: No adverse reaction mg2 Disposition: 01:02 Critical Care: not applicable. ma2 Disposition: 11/24/19 01:04 Hospitalization ordered by Edison Sanchez for Inpatient Admission. Preliminary diagnosis are Severe sepsis without septic shock, Other pneumonia, unspecified organism. - Bed requested for Telemetry/MedSurg (Inpatient). - Status is Inpatient Admission. mg2 - Condition is Stable. - Problem is new. - Symptoms are unchanged. Critical care time excluding procedures: 01:02 Critical care time: Bedside Care: 20 minutes, Consultation: 10 minutes, Family ma2 Intervention: 5 minutes. Total time: 35 minutes Signatures: Dispatcher [employer] EDFrancie Rose RN RN tl1 Dannielle Bentley MD MD maCatarino Green RN RN mg2 Corrections: (The following items were deleted from the chart) 02:38 01:04 Hospitalization Ordered by Edison Sanchez for Inpatient Admission. Preliminary tl1 diagnosis is Severe sepsis without septic shock; Other pneumonia, unspecified organism. Bed requested for Telemetry/MedSurg (Inpatient). Status is Inpatient Admission. Condition is Stable. Problem is new. Symptoms are unchanged. ma2 03:25 02:38 11/24/2019 01:04 Hospitalization Ordered by Edison Sanchez for Inpatient mg2 Admission. Preliminary diagnosis is Severe sepsis without septic shock; Other pneumonia, unspecified organism. Bed requested for Telemetry/MedSurg (Inpatient). Status is Inpatient Admission. Condition is Stable. Problem is new. Symptoms are unchanged. tl1
== END 2019-11-26 11:02 | disposition home or self-care (01) | DRG 193 ==
LOC: ER 23:31 → ERHOLD 11-24 02:12 → 4TH 11-24 03:00
PROVIDERS: ADMIT Internal Medicine; ATTEND Internal Medicine
DX: J18.9 Pneumonia, unspecified organism (principal); J96.21 Acute and chronic respiratory failure with hypoxia; J44.1 Chronic obstructive pulmonary disease with (acute) exacerbation; J44.0 Chronic obstructive pulmonary disease with (acute) lower respiratory infection; I27.20 Pulmonary hypertension, unspecified; J84.10 Pulmonary fibrosis, unspecified; Z20.828 Contact with and (suspected) exposure to other viral communicable diseases; Z99.81 Dependence on supplemental oxygen; Z88.1 Allergy status to other antibiotic agents; Z79.52 Long term (current) use of systemic steroids; Z79.899 Other long term (current) drug therapy; Z98.51 Tubal ligation status; Z90.2 Acquired absence of lung [part of]
CPT/HCPCS: 36415; 71045; 80048; 80076; 81003; 82550; 82553; 82805; 82947; 83690; 83735; 83880; 84100; 84484; 85025; 85379; 85610; 85730; 87040; 87804; 93005; 94640; 94760; 96365; 99291; 99292; J0456; J0696; J1650; J2920; J7030; U0002

== ENCOUNTER 2020-02-02 11:19 | Observation (INO) | payer OTHER, MEDICARE ==
[2020-02-02] MEDS ORDERED: LEVALBUTEROL 1.25 MG/3 ML NEB ONE (11:57)
--- NOTE | 2020-02-02 12:22 | RAD REPORT ---
EXAM DESCRIPTION: RAD - Chest Single View - 02/02/2020 12:15 pm CLINICAL HISTORY: fever, shortness of breath COMPARISON: Portable October 2019 TECHNIQUE: AP portable chest image was obtained 02/02/2020 12:15 pm . FINDINGS: Lung flynn are extensively fibrotic as a baseline. Findings are worse in the left base. P attern is not clearly different from comparison. No large new mass or consolidations seen. Severity o f disease could mask early infiltrate or edema. Heart and vasculature are normal. No measurable pleur al effusion and no pneumothorax. No acute bony abnormality seen. No acute aortic findings suspected. IMPRESSION: Very extensive interstitial fibrotic lung pattern not clearly different from comparison. Severity of disease could mask early edema or infiltrate.
[2020-02-02 12:48] LABS: Absolute Lymphocytes (CBC) 1.2 K/uL (0.7-4.9); Basophils % 0.1 % (0-1.3); Hematocrit 36.2 % (36.0-45.0); Lymphocytes % 5.5 % (15.3-44.8); MPV 7.9 fL (7.6-11.3); Protime INR 1.13; RBC Red Blood Cell Count 3.88 M/uL (3.86-4.86)
--- OUTSIDE RECORDS SUMMARY | 2020-02-02 12:58 | XMS REPORT | Clinical Summary ---
:1945 Author Organization [facility] Address [address] [place] [address] Care Team Providers Name Role Phone Crow [...] 0 03/05/2016 Osteoporosis s/p RECLAST 12/2014, 04/2016, 04/2017 09/0 12/2015 Overview: No reactions during infusion but [...] RIGHT HE ART CATH Cardiology MD Radha [[id number] (CPT )] 08/23/2019 Hospital Encounter Procedural Lopez [...] 04/19/2019 Hospital Encounter Radiology Laurel Dykes Age-rel ated MD osteoporosis wi thout current patholo gical fracture 04/19/2019 Hospital Encounter Radiology System, Provider Age-r elated Not In, INTERIOR DECORATOR-C osteoporosis without Laurel Dykes current patho logical MD fracture 04/13/2019 Transcribe Orders Access Laurel Dykes Age-rela ted MD osteoporosis wi thout current patholo gical fracture (Prima ry Dx) 03/20/2019 Intake Access after 02/01/2019 Immunizations Name Administration Dates Next Due FLUZONE [...] Comments Blood Pressure 95/46 08/23/2019 12:31 PM PLATE DRYING MACHINE TENDER Pulse 90 08/23/2019 12:31 PM PLATE DRYING MACHINE TENDER Temperature 36.5 C (97.7 F) 08/23/2019 11:39 AM PLATE DRYING MACHINE TENDER Respiratory Rate 26 08/23/2019 12:31 PM PLATE DRYING MACHINE TENDER Oxygen Saturation 98% 08/23/2019 12:31 PM PLATE DRYING MACHINE TENDER Inhaled Oxygen Concentration - - Weight 36.9 kg (81 lb 7 oz) 08/23/2019 7:36 AM PLATE DRYING MACHINE TENDER Height 144.8 cm (4' 9") 08/23/2019 7:36 AM PLATE DRYING MACHINE TENDER Body Mass Index 17.62 08/23/2019 7:36 AM PLATE DRYING MACHINE TENDER Plan of Treatment Health Maintenance Due Date Last Done Comments COLONOSCOPY SCREENING 12/23/1993 SHINGLES VACCINES (#1) 12/23/1993 65+ PNEUMOCOCCAL VACCINE (2 of 2 - PPSV23) 12/23/200806/29 INFLUENZA VACCINE 01/28/2020 05/11/2019, 03/18/2017 Procedures Procedure Name Priority Date/Time Associated Diagnosis Comme nts CV RIGHT HEART CATH Routine 08/23/2019 11:16 Primary pulmonary Results for this AM PLATE DRYING MACHINE TENDER hypertension (HCC) procedure are in the results section. HC COMPLETE BLD COUNT STAT 08/23/2019 8:10 Re sults for this W/AUTO DIFF AM PLATE DRYING MACHINE TENDER procedure are i n the results section. POC PANEL Routine 08/23/2019 8:09 Results for this AM PLATE DRYING MACHINE TENDER procedure are i n the results section. ESTIMATED GFR Routine 08/23/2019 8:09 Results fo r this AM PLATE DRYING MACHINE TENDER procedure are i n the results section. ESTIMATED GFR Routine 07/15/2019 5:05 Results fo r this AM PLATE DRYING MACHINE TENDER procedure are i n the results section. PHOSPHORUS LEVEL Routine 07/15/2019 5:05 Results for this AM PLATE DRYING MACHINE TENDER procedure are i n the results section. MAGNESIUM LEVEL Routine 07/15/2019 5:05 Results for this AM PLATE DRYING MACHINE TENDER procedure are i n the results section. BASIC METABOLIC PANEL Routine 07/15/2019 5:05 Re sults for this AM PLATE DRYING MACHINE TENDER procedure are i n the results section. HC COMPLETE BLD COUNT Routine 07/15/2019 5:05 Re sults for this W/AUTO DIFF AM PLATE DRYING MACHINE TENDER procedure are i n the results section. CT CHEST WO CONTRAST Routine 07/14/2019 3:27 Res ults for this PM PLATE DRYING MACHINE TENDER procedure are i n the results section. CT SOFT TISSUE NECK WO Routine 07/14/2019 3:26 R esults for this CONTRAST PM PLATE DRYING MACHINE TENDER procedure are i n the results section. PARTIAL THROMBOPLASTIN Routine 07/14/2019 7:00 R esults for this TIME (PTT) AM PLATE DRYING MACHINE TENDER procedure are i n the results section. PARTIAL THROMBOPLASTIN STAT 07/14/2019 6:47 R esults for this TIME (PTT) AM PLATE DRYING MACHINE TENDER procedure are i n the results section. PROTHROMBIN TIME WITH STAT 07/14/2019 6:47 Re sults for this INR AM PLATE DRYING MACHINE TENDER procedure are i n the results section. ESTIMATED GFR Routine 07/14/2019 6:47 Results fo r this AM PLATE DRYING MACHINE TENDER procedure are i n the results section. BASIC METABOLIC PANEL Routine 07/14/2019 6:47 Re sults for this AM PLATE DRYING MACHINE TENDER procedure are i n the results section. HC COMPLETE BLD COUNT Routine 07/14/2019 6:47 Re sults for this W/AUTO DIFF AM PLATE DRYING MACHINE TENDER procedure are i n the results section. GRAM STAIN Routine 07/13/2019 4:30 Results for this PM PLATE DRYING MACHINE TENDER procedure are i n the results section. SPUTUM CULTURE Routine 07/13/2019 4:30 Results f or this PM PLATE DRYING MACHINE TENDER procedure are i n the results section. POC GLUCOSE Routine 07/13/2019 12:33 Results for this PM PLATE DRYING MACHINE TENDER procedure are i n the results section. TTE COMPLETE, WO STAT 07/13/2019 8:40 Results for this CONTRAST, W DOPPLER AM PLATE DRYING MACHINE TENDER procedur e are in ([id number]) the results section. POC GLUCOSE Routine 07/13/2019 7:48 Results for this AM PLATE DRYING MACHINE TENDER procedure are i n the results section. ESTIMATED GFR STAT 07/13/2019 5:30 Results fo r this AM PLATE DRYING MACHINE TENDER procedure are i n the results section. THYROID STIMULATING Routine 07/13/2019 5:30 Resu lts for this HORMONE AM PLATE DRYING MACHINE TENDER procedure are i n the results section. LACTIC ACID LEVEL STAT 07/13/2019 5:30 Result s for this AM PLATE DRYING MACHINE TENDER procedure are i n the results section. B NATRIURETIC PEPTIDE STAT 07/13/2019 5:30 Re sults for this AM PLATE DRYING MACHINE TENDER procedure are i n the results section. COMPREHENSIVE STAT 07/13/2019 5:30 Results fo r this METABOLIC PANEL AM PLATE DRYING MACHINE TENDER procedure ar e in the results section. HC COMPLETE BLD COUNT STAT 07/13/2019 5:30 Re sults for this W/AUTO DIFF AM PLATE DRYING MACHINE TENDER procedure are i n the results section. POC GLUCOSE Routine 07/13/2019 4:49 Results for this AM PLATE DRYING MACHINE TENDER procedure are i n the results section. POC GLUCOSE Routine 07/13/2019 1:47 Results for this AM PLATE DRYING MACHINE TENDER procedure are i n the results section. TROPONIN Timed 07/12/2019 10:08 Results for this PM PLATE DRYING MACHINE TENDER procedure are i n the results section. ARTERIAL BLOOD GAS STAT 07/12/2019 9:12 Resul ts for this PM PLATE DRYING MACHINE TENDER procedure are i n the results section. URINE CULTURE STAT 07/12/2019 6:15 Results fo r this PM PLATE DRYING MACHINE TENDER procedure are i n the results section. LACTIC ACID LEVEL Timed 07/12/2019 6:08 Result s for this PM PLATE DRYING MACHINE TENDER procedure are i n the results section. TROPONIN Timed 07/12/2019 6:08 Results for this PM PLATE DRYING MACHINE TENDER procedure are i n the results section. URINALYSIS SCREEN AND STAT 07/12/2019 6:08 Re sults for this MICROSCOPY, WITH PM PLATE DRYING MACHINE TENDER procedure a re in REFLEX TO CULTURE the result s section. RESPIRATORY PATHOGEN Routine 07/12/2019 4:56 Res ults for this PANEL PM PLATE DRYING MACHINE TENDER procedure are i n the results section. XR CHEST 1 VW PORTABLE STAT 07/12/2019 4:15 R esults for this PM PLATE DRYING MACHINE TENDER procedure are i n the results section. BLOOD CULTURE, AEROBIC Routine 07/12/2019 3:31 R esults for this & ANAEROBIC PM PLATE DRYING MACHINE TENDER procedure are i n the results section. ARTERIAL BLOOD GAS STAT 07/12/2019 3:30 Resul ts for this PM PLATE DRYING MACHINE TENDER procedure are i n the results section. LACTIC ACID LEVEL STAT 07/12/2019 3:30 Result s for this PM PLATE DRYING MACHINE TENDER procedure are i n the results section. ECG ED PRELIMINARY Routine 07/12/2019 3:12 Resul ts for this INTERPRETATION PM PLATE DRYING MACHINE TENDER procedure are in the results section. ESTIMATED GFR STAT 07/12/2019 2:55 Results fo r this PM PLATE DRYING MACHINE TENDER procedure are i n the results section. B NATRIURETIC PEPTIDE STAT 07/12/2019 2:55 Re sults for this PM PLATE DRYING MACHINE TENDER procedure are i n the results section. TROPONIN STAT 07/12/2019 2:55 Results for this PM PLATE DRYING MACHINE TENDER procedure are i n the results section. COMPREHENSIVE STAT 07/12/2019 2:55 Results fo r this METABOLIC PANEL PM PLATE DRYING MACHINE TENDER procedure ar e in the results section. HC COMPLETE BLD COUNT STAT 07/12/2019 2:55 Re sults for this W/AUTO DIFF PM PLATE DRYING MACHINE TENDER procedure are i n the results section. ECG 12-LEAD STAT 07/12/2019 2:47 Results for this PM PLATE DRYING MACHINE TENDER procedure are i n the results section. BONE DENSITY Routine 04/19/2019 1:21 Age-related Results for this PERIPHERAL PM CDT osteoporosis without procedu re are in current pathological the res ults fracture section. BONE DENSITY Routine 04/19/2019 1:20 Age-related Results for this PM CDT osteoporosis without procedu re are in current pathological the res ults fracture section. after 02/01/2019 Results labor training manager procedure (08/23/2019 11:16 AM PLATE DRYING MACHINE TENDER) Specimen Narrative Performed At This result has an attachment that is no t available. INTERVENTIONAL CARDIOLOGY PROCEDURE NOTE HM SYNGO [ Lopez Luz MD | Kari Carmona MD | Cullen guzman MD ] PATIENT:Seema Romo, MR#:[id number], :[birth year] DATE OF SERVICE:08/23/2019 Pre-Procedure Diagnosis:Pulmonary HTN Post-Procedure Diagnosis:moderate Pulm HTN Procedure Performed: - Right heart catheterization (RHC) - Ultrasound access:RIJ - Monitoring under moderate [id number] minutes Technical Solution Architect:Sukh Anesthesia/Sedation:Moderate Sedation (IV Versed and IV Fentanyl) Specimens: None Estimated Blood Loss:1 mL Iodinated Contrast:none mL Blood Administered:None Grafts or Implants:None Complications:None Hemodynamic / oximetric Findings: Right atrium:2mm Hg (mean) Right ventricle:56/4 RVEDP 4 Pulmonary artery:56/78gbpf16tm Hg Wedge:4mm Hg Pulmonary artery saturation:72% Systemic artery saturation:96% Cardiac output / index (Estimated Caitlyn):3.08/2.5 1 PVR 9.74 PERDUE Plan / Recommendations: Severe PVR ~ 10 PERDUE Will discuss with Dr. Herrera. Thank you for the opportunity romero of assistance. Pl ease call if questions arise. [facility] Clinical and Interventional Cardiology Office: ; Answering Service: [phone] Pager: [phone] Performing Organization Address [facility]/Zipcode Phone Number [facility] [address] [place] [address], CBC with platelet and differential (08/23/2019 8:10 AM PLATE DRYING MACHINE TENDER)Only the most recent of5 resultswithin the time period is included. WBC 7.49 4.50 - 11.00 [facility] k/uL HOSPITAL RBC 3.94 (L) 4.20 - 5.50 [facility] m/uL [facility] HGB 11.9 (L) 12.0 - 16.0 [facility] g/dL HOSPITAL HCT 37.4 37.0 - 47.0 % [facility] MCV 94.9 82.0 - 100.0 [facility] MCH 30.2 27.0 - 34.0 pg [facility] MCHC 31.8 31.0 - 37.0 [facility] RDW - SD 49.2 37.0 - 55.0 fL [facility] MPV 9.8 8.8 - 13.2 fL [facility] Platelet count 233 150 - 400 k/uL [facility] Nucleated RBC 0.00 /100 WBC [facility] Neutrophils 50.9 39.0 - 69.0 % [facility] Lymphocytes 32.2 25.0 - 45.0 % [facility] Monocytes 11.7 (H) 0.0 - 10.0 % [facility] Eosinophils 3.2 0.0 - 5.0 % [facility] Basophils 1.7 (H) 0.0 - 1.0 % [facility] Immature granulocytes 0.3Comment: 0.0 - 1.0 % [facility] "Immature [facility] granulocytes" (promyelocytes , myelocytes, metamyelocytes ) Specimen Blood Performing Organization Address City/[facility]/Zipcode Phone Number [facility] DEPARTMENT OF PATHOLOGY AND [address] [place], [place] [address] [facility] [address] Estimated GFR (08/23/2019 8:09 AM PLATE DRYING MACHINE TENDER)Only the most recent of5 resultswithin the time period is included. [facility] Estimated GFR 89 mL/min/1.73 [facility] Comment: m2 HOSPITAL Catergory Units Interpretation G1 [...] in 2014. Specimen Blood Performing Organization Address City/[facility] Cent[facility] Phone Number [facility] DEPARTMENT OF PATHOLOGY AND [address] [place] [address] [phone] [address] POC panel (08/23/2019 8:09 AM PLATE DRYING MACHINE TENDER) [facility] POC sodium 141 135 - 148 [facility] mmol/L [facility] POC potassium 4.2 3.5 - 5.0 [facility] mmol/L [facility] POC chloride 102 99 - 109 [facility] mmolVA HOSPITAL POC CO2 31 24 - 31 mmol/L [facility] POC glucose 91 65 - 99 mg/dL [facility] POC BUN 9 8 - 24 mg/dL [facility] POC creatinine 0.6 0.5 - 0.9 [facility] mg/dl [facility] POC hematocrit 39 37 - 47 % [facility] POC anion gap 13 8 - 20 mmol/L [facility] Comment: HOSPITAL Airplane Pilot Name: Octavio Hurtado Device ID: [id number] Specimen Performing Organization Address City/[facility]/Zipcode Phone Number [facility] DEPARTMENT OF PATHOLOGY AND [address] [place] [address] [phone] [address] Phosphorus level (07/15/2019 5:05 AM PLATE DRYING MACHINE TENDER) Pathologist [facility] nature Phosphorus 3.4 2.4 - 4.5 mg/dL [facility] L Specimen Plasma specimen Performing Organization Address City/[facility] Centercode Phone Number [facility] DEPARTMENT OF PATHOLOGY AND [address] [place] [phone] [facility] [address] [place] [address] Magnesium level (07/15/2019 5:05 AM PLATE DRYING MACHINE TENDER) Pathologist Sig [facility] Magnesium 2.1 1.6 - 2.4 mg/dL [facility] L Specimen Plasma specimen Performing Organization Address [facility] Phone Number [facility] DEPARTMENT OF PATHOLOGY AND [address] [place] [address] Basic metabolic panel (07/15/2019 5:05 AM PLATE DRYING MACHINE TENDER)Only the most recent of2 results within the time period is included. Pathologist Sig nature Sodium 142 135 - 148 mEq/L [facility] Potassium 4.7 3.5 - 5.0 mEq/L [facility] Chloride 107 98 - 112 mEq/L [facility] CO2 28 24 - 31 mEq/L [facility] Anion gap 7@ANIO 7 - 15 mEq/L [facility] BUN 10 8 - 23 mg/dL [facility] Creatinine 0.70 0.50 - 0.90 mg/dL [facility] MIKI Glucose 91 65 - 99 mg/dL [facility] Calcium 8.8 8.8 - 10.2 mg/dL [facility] Specimen Plasma specimen Performing Organization Address [facility] Phone Number [facility] DEPARTMENT OF PATHOLOGY AND [address] [place] [address] Chest Wo Contrast (07/14/2019 3:27 PM PLATE DRYING MACHINE TENDER) Specimen Narrative Performed At EXAMINATION: CT CHEST [...] abdome n do not demonstrate any masses. [id number] Procedure Note Hm Interface, Radiology Results Incoming - 07/14/2019 3:53 PM PLATE DRYING MACHINE TENDER EXAMINATION: CT CHEST WO CONTRAST CLINICAL HISTORY: [...] abdome n do not demonstrate any masses. [id number] Performing Organization Address City/State/Zipcode Phone Number [facility] [address] [place] [address] CT Soft Tissue Neck Wo Contrast (07/14/2019 3:26 PM PLATE DRYING MACHINE TENDER) Specimen Narrative Performed At EXAMINATION: CT SOFT [...] hyoid bone, compati ble with ectopic thyroid. [id number] Dictated and approved by radiology therapist/fellow: Haja Whyte M.D. I, Dimitri Forte MD, personally reviewed the images and resident's/fellow's findings and agree with the final report. Procedure Note Hm Interface, Radiology Results Incoming - 07/14/2019 4:32 PM PLATE DRYING MACHINE TENDER EXAMINATION: CT SOFT TISSUE NECK WO CONTRAST [...] left hyoid bone, compatible with ectopic thyroid. [id number] Dictated and approved by radiology resid ent/fellow: Beba Whyte M.D. I, Dimitri Forte MD, personally reviewed t he images and resident's/fellow's findings and agree with the final report. Performing Organization Address City/State/Zipcode Phone Number [facility] [address] [place] [phone] Partial thromboplastin time, activated (07/14/2019 7:00 AM PLATE DRYING MACHINE TENDER)Only the most recent of2 resultswithin the time period is included. PTT 32.2 23.0 - 36.0 [facility] Comment: [facility] PTT therapeutic range for unfractionated heparin is 61.0-112.0 seconds which corresponds to Anti-Xa 0.3-0.7 U/ml. Specimen Blood Performing Organization Address City/[facility]/Zipcode Phone Number [facility] DEPARTMENT OF PATHOLOGY AND [address] [place] [address] [phone] [address] Prothrombin time with INR (07/14/2019 6:47 AM PLATE DRYING MACHINE TENDER) Pathologist [facility] Prothrombin time 12.7 11.5 - 14.5 [facility] INR 1.0 [place] Comment: [facility] The International Normalized Ratio (INR) is a therapeu [facility] monitoring tool for patients who are stable on oral anticoagulant therapy. An INR of 2.0-3.0 is suggested for deep vein thrombosis/pulmonary embolism. Specimen Blood Narrative Performed At PTT added and read back to Malissa Reyes [facility] DEPARTMEN T OF PATHOLOGY AND GENOMIC in FMIC 07/14/2019 06:59 LMID. MEDICINE Performing Organization Address [facility]/Zipcode Phone Number [facility] DEPARTMENT OF PATHOLOGY AND [address] [place] [address] [phone] [address] Sputum culture (07/13/2019 4:30 PM PLATE DRYING MACHINE TENDER) Pathologist [facility] Sputum culture Normal oral yenni isolated. [facility] isolate Comment: HOSPITAL Specimen Information Specimen Source: Sputum Specimen Site: Expectorated Specimen Sputum - Expectorated Performing Organization Address City/[facility]/Zipcode Phone Number [facility] DEPARTMENT OF PATHOLOGY AND [address] [place] [address] [phone] [address] Gram stain (07/13/2019 4:30 PM PLATE DRYING MACHINE TENDER) Pathologist [facility] Gram stain isolate Few WBC's [facility] Few Gram positive cocci in clusters [facility] Many Gram positive cocci in chains Comment: Specimen Information Specimen Source: Sputum Specimen Site: Expectorated Specimen Sputum - Expectorated Performing Organization Address City/State/Zipcode Phone Number [facility] DEPARTMENT OF PATHOLOGY AND [address] [place] [address] POC glucose (07/13/2019 12:33 PM PLATE DRYING MACHINE TENDER)Only the most recent of4 resultswithin the time period is included. Pathologist Sig nature POC glucose 82 65 - 99 mg/dL [facility] Comment: HOSPITAL Airplane Pilot Name: Karel Diego Device ID: [id number] Chartable: [facility] Notified RN Specimen Performing Organization Address City/[facility]/Zipcode Phone Number [facility] DEPARTMENT OF PATHOLOGY AND [address] [place] [address] Echocardiogram complete w contrast and 3D if needed (07/13/2019 8:40 AM PLATE DRYING MACHINE TENDER) Specimen Narrative Performed At [facility] Echo cardiography Report [address] [place] [address] Pat.Name: SEEMA ROMO Pat.ID: [id number] .Date: 07/13/2019 Refer.MD: GORDON FENG MD Exam Time: 6:18:00 AM Study Type:R outine Echo Height: 57in Weight: 81lb BSA: 1.23 m2 Ag e: 1945,73Y Sex: FEMALE BP: 85/49 HR: 73 bpm Sonogr phr: Naty Hale RDCS Pat. Stat.:Inpatient Room: [id number] Study Status:Final Echo Event ID:[id number] Order ID: [id number] Reason for Study:H/o Pulmonary hypertens ion, RA [...] of 5 mmHg. MEASUREMENTS: 2D Parasternal Long Priddy Ao An 2 cm LVPWd 0.74 cm [...] Radiology Results In - 2019 9:15 AM [facility] Echocardiography Report [address] [place] [address] Pat.Name: SEEMA ROMO Pat.I D: [id number] St.Date: 07/13/2019 Refer.MD: GORDON FENG MD Exam Time: 6:18:00 AM Study Type:Routine Echo Height: 57in Weigh t: 81lb BSA: 1.23 m2 Age: 4 1945,73Y Sex: FEMALE BP: 85/49 HR: 73 bpm Sonog rphr: Naty Hale RDCS Pat. Stat.:Inpatient Room: [place] [address] Study Status:Final Echo Event ID:[id number] Order ID: [id number] Reason for Study:H/o Pulmonary hypertens ion, RA [...] of 5 mmHg. MEASUREMENTS: 2D Parasternal Long Priddy Ao An 2 cm LVPW d 0.74 [...] AM Dawit [place] MD Performing Organization Address [facility] Centercode Phone Number [facility] [address] [place] [address] Thyroid stimulating hormone (07/13/2019 5:30 AM PLATE DRYING MACHINE TENDER) Pathologist Sig nature TSH 0.51 0.27 - 4.20 uIU/mL [facility] Specimen Plasma specimen Performing Organization Address [facility] Phone Number [facility] DEPARTMENT OF PATHOLOGY AND [address] [place] [address] [place] [address] B natriuretic peptide (07/13/2019 5:30 AM PLATE DRYING MACHINE TENDER)Only the most recent of2 results within the time period is included. Pathologist Sig nature BNP 153 (H) 0 - 100 pg/mL [facility] Specimen Blood Performing Organization Address [facility] Phone Number [facility] DEPARTMENT OF PATHOLOGY AND [address] [place] [phone] [place] [address] Lactic acid level (07/13/2019 5:30 AM PLATE DRYING MACHINE TENDER)Only the most recent of3 results within the time period is included. Pathologist Sig nature Lactic acid 1.0 0.5 - 2.2 mmol/L [facility] AL Specimen Plasma specimen Performing Organization Address [facility] Phone Number [facility] DEPARTMENT OF PATHOLOGY AND [address] [place] [phone] [place] [address] Comprehensive metabolic panel (07/13/2019 5:30 AM PLATE DRYING MACHINE TENDER)Only the most recent of2 resultswithin the time period is included. Sodium 140 135 - 148 [facility] mEq/L [facility] Potassium 4.5 3.5 - 5.0 [facility] mEq/L [facility] Chloride 106 98 - 112 mEq/L [facility] CO2 24 24 - 31 mEq/L [facility] Anion gap 10@ANIO 7 - 15 mEq/L [facility] BUN 14 8 - 23 mg/dL [facility] Creatinine 0.67 0.50 - 0.90 [facility] mg/dL HOSPITAL Glucose 143 (H) 65 - 99 mg/dL [facility] Calcium 8.5 (L) 8.8 - 10.2 [facility] mg/dL [facility] Protein 6.3 6.3 - 8.3 g/dL [facility] Comment: HOSPITAL Knxtnzs8155.6-7.0 g/dL 1 ghsq6418.4-7.6 g/dL 7 months-5xglv306.1-7.3 g/dL 1-2 lziwl655.6-7.5 g/dL >3 mmejk039.0-8.0 g/dL 18-4162934.3-8.3 g/dL Albumin 3.0 (L) 3.5 - 5.0 g/dL [facility] A/G ratio 0.9 0.7 - 3.8 [facility] Alkaline phosphatase 78 35 - 104 U/L [facility] AST 14 10 - 35 U/L [facility] ALT 19 5 - 50 U/L [facility] Total bilirubin <0.2 0.0 - 1.2 [facility] mg/dL [facility] Specimen Plasma specimen Performing Organization Address City/State/Zipcode Phone Number [facility] DEPARTMENT OF PATHOLOGY AND [address] [place], [place] [address] GENOMIC MEDICINE [place] [id number] [place] [address] Troponin (07/12/2019 10:08 PM PLATE DRYING MACHINE TENDER)Only the most recent of3 resultswithin the time period is included. Troponin 0.011 0.000 - 0.040 [facility] Comment: ng/mL HOSPITAL In patients suspected of [...] ng/mL Specimen Plasma specimen Performing Organization Address City/[facility] Phone Number [facility] DEPARTMENT OF PATHOLOGY AND [address] [place], [place] [id number] [address] [place] [address] Arterial blood gas (07/12/2019 9:12 PM PLATE DRYING MACHINE TENDER)Only the most recent of2 results within the time period is included. [facility] pH, arterial 7.41 7.35 - 7.45 [facility] pCO2, arterial 38 35 - 45 mmHg [facility] pO2, arterial 77 (L) 80 - 90 mmHg [facility] Bicarbonate, 23.6 21.0 - 28.0 [facility] mmol/L HOSPITAL Base excess, 0 -2 - 2 mEq/L [facility] O2 saturation, 95 95 - 100 % [facility] Specimen Blood Performing Organization Address [facility] Phone Number [facility] DEPARTMENT OF PATHOLOGY AND [address] [place] [address] [phone] [address] Urine culture (07/12/2019 6:15 PM PLATE DRYING MACHINE TENDER) [facility] Urine culture SEE COMMENTComment: [facility] Bacteriuria screen HOSPITAL negative. Specimen Performing Organization Address [facility] Phone Number [facility] DEPARTMENT OF PATHOLOGY AND [address] [place] [address] [phone] [address] Urinalysis screen and microscopy, with reflex to culture (07/12/2019 6:08 PM PLATE DRYING MACHINE TENDER) Specimen site Clean catch [facility] Color, UA Yellow [facility] Appearance, UA Clear [facility] Specific gravity, UA 1.019 1.001 - 1.035 [facility] pH, UA 6.0 5.0 - 8.5 [facility] Protein, UA Negative Negative [facility] Glucose, UA Negative Negative [facility] Ketones, UA Negative Negative [facility] Bilirubin, UA Negative Negative [facility] Blood, UA Negative Negative [facility] Nitrite, UA Negative Negative [facility] Urobilinogen, UA <2.0 <2.0 [facility] Leukocyte esterase, Negative Negative [facility] Epithelial cells, UA 1 /HPF [facility] WBC, UA <1 0 - 4 /HPF [facility] RBC, UA <1 0 - 5 /HPF [facility] Bacteria, UA Few None seen [facility] Yeast, UA None seen [facility] Yeast with None seen [facility] pseudohyphae, HOSPITAL Hyaline casts, UA 4 /LPF [facility] Specimen Urine Performing Organization Address City/State/Zipcode Phone Number [facility] DEPARTMENT OF PATHOLOGY AND [address] [place], [place] [address] GENOMIC MEDICINE [address] [address] Respiratory pathogen panel (07/12/2019 4:56 PM PLATE DRYING MACHINE TENDER) Respiratory Positive for Rhinovirus/Enterovirus [place] pathogen panel [place] Negative for all other pathogens tested: HOSPITAL [...] Specimen Nares - Left Performing Organization Address [facility]/Zipcode Phone Number [facility] DEPARTMENT OF PATHOLOGY AND [address] [place] [address] [phone] [address] XR Chest 1 Vw Portable (07/12/2019 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 Chest r adiograph 11/15/2017 IMPRESSION: Prominent emphysematous changes are unch anged from the prior radiograph and better seen on prior CT. No focal consolidation or large pleural effusion. Normal cardiomediastinal silhouette. Interval angulated right sixth posterior rib fracture appears to be chronic, correlate with exam.. Performing Organization Address [facility] Phone Number [facility] [address] [place] [address] Blood culture, aerobic & anaerobic (07/12/2019 3:31 PM PLATE DRYING MACHINE TENDER) Blood culture No growth after 5 days of incubation. [facility] [place] isolate Comment: HOSPITAL Specimen Information Specimen Source: Blood Specimen Site: Antecubital Left Specimen Blood Performing Organization Address City/[facility]/Zipcode Phone Number [facility] DEPARTMENT OF PATHOLOGY AND [address] [place] [phone] [facility] [address] [place] [address] ECG ED Preliminary Interpretation - Not an Order (07/12/2019 3:12 PM PLATE DRYING MACHINE TENDER) Narrative Performed At Jordan Craig MD 08/14/2019 9:51 AM ECG ED Preliminary Interpretation - Not an Order Performed by: Jordan Craig MD Authorized by: Jordan Craig MD ECG reviewed by ED Physician in the abse nce of a dedenter: yes Interpretation: Interpretation: abnormal Rate: ECG rate: 111 ECG rate assessment: tachycardic Rhythm: Rhythm: sinus tachycardia QRS: QRS axis: Left QRS intervals: Normal ST segments: ST segments: Normal Comments: Poor baseline. ECG 12 lead (07/12/2019 2:47 PM PLATE DRYING MACHINE TENDER) Pathologist Sig nature Ventricular rate 111 [facility] Atrial rate 111 [facility] MS interval 130 [facility] QRSD interval 82 [...] available-Electronicall y Signed By Gracie Barragan MD ([id number]) on 07/12/2019 6:36:46 PM Specimen Narrative Performed At This result has an attachment that is no t available. Performing Organization Address City/State/Zipcode Phone Number [facility] [address] [place] [address] Bone Density Peripheral (04/19/2019 1:21 PM CDT) [...] effect of treatments on patient over time. [id number] Procedure Note [facility], Radiology Results Incoming - 04/19/2019 1:26 [...] effect of treatments on patient over time. [id number] Performing Organization Address City/State/Zipcode Phone Number [facility] [address] [place] [address] Bone Density (04/19/2019 1:20 PM CDT) Specimen Narrative Performed At EXAMINATION: BONE DENSITY, BONE DENSIT Y [facility] CLINICAL HISTORY: M81.0 Age-related osteoporosis wit hout [...] effect of treatments on patient over time. [id number] Procedure Note [facility], Radiology Results Incoming - 04/19/2019 1:26 [...] effect of treatments on patient over time. [id number] Performing Organization Address City/State/Zipcode Phone Number ROSANNE HAGAN [address] [place] [address] after 02/01/2019 Insurance Payer Benefit Plan / Subscriber ID Effective Dates Phone Addre ss Type Group MEDICARE MEDICARE PART A xxxxxxxxxxx 2001-Present [facility] [place] Medicare AND B AARP AARP SUPPLEMENT xxxxxxxxxxx 2008-Present Commercial [id number] Advance Directives For more information, please contact: [phone] Type Date Recorded Patient Business Services Representative Explanati on Advance Directives, Living Will 08/18/2004 7:57 PM and Medical Power of Civil Drafter
--- OUTSIDE RECORDS SUMMARY | 2020-02-02 12:59 | XMS REPORT | Clinical Summary ---
:1945 Author Organization [facility] Address [address] [place] [address] Care Team Providers Name Role Phone CrawfordJose [...] Encounters Date Type Specialty Care Team Description 11/24/2019 Lab Requisition Lab 11/07/2019 Lab Requisition Lab 03/20/2019 - Hospital Encounter Cardiology Mj Alexander Acut e hypoxemic respiratory failure ([facility]); 03/23/2019 Acute exacerbation of chronic obstructiv e pulmonary disease (COPD) ([facility]) Maykel Bullock MD Heinen, Allison P., MD Changela, Kinjal M., MD 03/20/2019 Travel after 02/01/2019 Social History Tobacco Use Types Packs/Day Years Used Date Former Smoker 1.5 40 Quit: 2005 Smokeless Tobacco: Never Used Alcohol Use Drinks/Week [...] Priority Date/Time Associated Comments Diagnosis SARS-COV2/RT-PCR Routine 11/24/2019 12:25 Results for this ([facility]) AM CDT procedure are in the results section. SARS-COV2/RT-PCR Routine 11/07/2019 4:39 Results for this ([facility]) PM CDT procedure are [...] are i n the results section. after 02/01/2019 Results SARS-CoV2/RT-PCR ([facility]) (11/24/2019 12:25 AM CDT)Only the most recent of2 resultswithin the time period is included. SARS-COV2/RT-PCR Not Detected Not Detected, Negative [facility] SARS-COV-2 PERFORMING LAB [facility] Specimen Other Narrative Performed At Negative results do not preclude SARS-CoV-2 [facility] infection and should not be used as [...] the Act. Fact Sheet for Healthcare Providers: https://www.[employer]/Documents/Xpert%20Xpre ss%20SARS%20CoV-2/Fact%20Sheets/3023802%20SAR S-COV-2%20HEALTHCARE%20PROVIDERS%20FACT%20SHEE T.pdf Fact Sheet for Healthcare Patients: https://www.[employer]/Documents/Xpert%20Xpre ss%20SARS%20CoV-2/Fact%20Sheets/302-3801%20SAR S-COV-2%20PATIENT%20FACT%20SHEET.pdf Performing Laboratory: [address] [place] [address] Performing Organization Address City/State/Zipcode Phone Number [address] [address] CENTER RHYTHM STRIP - SCAN (03/25/2019 12:16 PM CDT)Only the most recent of2 results within the time period is included. Narrative Performed At This result has an attachment that is no t available. Vancomycin level, trough (03/23/2019 9:05 AM CDT)Only the most recent of2 resultswithin the time period is included. Vancomycin Tr 11.9 10.0 - 20.0 ug/mL [facility] Specimen Blood Narrative Performed At Please draw 30 min prior to scheduled do se. [facility] If vancomycin trough level > 20 mcg/mL, hold next vancomycin dose, and contact MD and pharmacist. Performing Organization Address City/State/Zipcode Phone Number [facility] [address] [place] [address] CENTER CBC with platelet count + automated diff (03/23/2019 4:38 AM CDT)Only the most recent of4 resultswithin the time period is included. WBC 12.8 (H) 3.5 - 10.5 K/L [facility] RBC 3.65 (L) 3.93 - 5.22 M/L [facility] Hemoglobin 11.0 (L) 11.2 - 15.7 GM/DL [facility] Hematocrit 34.0 (L) 34.1 - 44.9 % [facility] MCV 93.2 79.4 - 94.8 fL [facility] MCH 30.1 25.6 - 32.2 pg [facility] MCHC 32.4 32.2 - 35.5 GM/DL [facility] RDW 14.2 11.7 - 14.4 % [facility] Platelets 253 150 - 450 K/CU MM [facility] MPV 9.6 9.4 - 12.3 fL [facility] nRBC 0 0 - 0 /100 WBC [facility] % Neutros 68 % [facility] % Lymphs 21 % [facility] % Monos 10 % [facility] % Eos 0 % [facility] % Baso 0 % [facility] # Neutros 8.68 (H) 1.56 - 6.13 K/L [facility] # Lymphs 2.66 1.18 - 3.74 K/L [facility] # Monos 1.33 (H) 0.24 - 0.36 K/L [facility] # Eos 0.04 0.04 - 0.36 K/L [facility] # Baso 0.01 0.01 - 0.08 K/L [facility] Immature Granulocytes-Relative 1 0 - 1 % C [facility] Specimen Blood Performing Organization Address City/State/Zipcode Phone Number [facility] [address] [place] [address] CENTER Basic Metabolic Panel (03/23/2019 4:38 AM CDT)Only the most recent of4 results within the time period is included. Sodium 139 136 - 145 meq/L [facility] Potassium 3.8 3.5 - 5.1 meq/L [facility] Chloride 107 98 - 107 meq/L [facility] CO2 28 22 - 29 meq/L [facility] BUN 14 7 - 21 mg/dL [facility] Creatinine 0.65 0.57 - 1.25 mg/dL [facility] Glucose 97 70 - 105 mg/dL [facility] Calcium 8.5 8.4 - 10.2 mg/dL [facility] EGFR 89Comment: ESTIMATED GFR IS mL/min/1.73 sq m [facility] NOT ACCURATE CREATININE [facility] CLEARANCE IN PREDICTING GLOMERULAR FILTRATION RATE. ESTIMATED GFR IS NOT APPLICABLE FOR DIALYSIS PATIENTS. Specimen Blood Performing Organization Address City/State/Zipcode Phone Number [facility] [address] [place] [address] CENTER Respiratory Panel [facility] (03/21/2019 3:56 PM CDT) Human Metapneumovirus Not detected Not detected, [facility] [employer] Rhinovirus Not detected Not detected, [facility] [employer] [facility] Influenza A Not detected Not detected, [facility] [employer] INFLUENZA A (NO SUBTYPE) [facility] Influenza A subtype H1 [facility] Influenza A Subtype H3 [facility] Influenza A Subtype H1-2009 [facility] Influenza B Not detected Not detected, [facility] Respiratory Syncytial Virus Not detected Not detected, [facility] Parainfluenza Virus 1 Not detected Not detected, [facility] [employer] [facility] Parainfluenza Virus 2 Not detected Not detected, [facility] [employer] [facility] Parainfluenza virus 3 Not detected Not detected, [facility] [employer] [facility] Parainfluenza Virus 4 Not detected Not detected, [facility] [employer] [facility] Adenovirus Not detected Not detected, [facility] [employer] [facility] Coronavirus 229E Not detected Not detected, [facility] [employer] [facility] Coronavirus HKU1 Not detected Not detected, [facility] [employer] [facility] Coronavirus NL63 Not detected Not detected, [facility] [employer] Coronavirus OC43 Not detected Not detected, [facility] [employer] Bordetella Pertussis Not detected Not detected, [facility] Equivocal [facility] Chlamydophila Pneumoniae Not detected Not detected, [facility] Mycoplasma Pneumoniae Not detected Not detected, [facility] ER Specimen Nasopharyngeal Narrative Performed At Other viruses and bacteria not targeted by [facility] this PCR panel cannot be excluded; therefore clinical correlation and follow up of serology, culture results, and other molecular studies is required. The results are not intended to be used as the sole means for clinical diagnosis or patient management decisions. This sample was tested at the [facility] Molecular Diagnostics Laboratory using the [employer] FilmArray Respiratory Panel. It is FDA cleared and has been verified and approved by the [facility] Molecular Diagnostics Laboratory for clinical use on nasopharyngeal swab specimens. The performance of the FilmArray RP has not been established in individuals who received influenza vaccine.Recent administration of a nasal influenza vaccine may cause false positive results for Influenza A and/or Influenza B. Performing Organization Address City/State/Zipcode Phone Number [facility] [address] [place] [address] CENTER Sputum Culture + Gram Stain (03/20/2019 11:41 AM CDT) Result 4+ Pseudomonas aeruginosa (A) [facility] Gram Stain Result 4+ WBCs [facility] Gram Stain Result 0-5 epithelial cells [facility] Gram Stain Result No organisms seen [facility] Specimen Sputum - Expectorated Narrative Performed At 4+ Normal respiratory yenni present [facility] Organism Antibiotic Method Susceptibility Pseudomonas [...] Tobramycin <=2: Susc eptible Performing Organization Address City/[facility]/Zipcode Phone Number [facility] [address] [place] [address] CENTER Manual Differential (03/20/2019 8:43 AM CDT) % Neutros 92 % [facility] % Lymphs 3 % [facility] % Monos 3 % [facility] % Bands 2 0 - 10 % [facility] # Neutros 30.36 (H) 1.56 - 6.13 K/ul [facility] # Lymphs 0.99 (L) 1.18 - 3.74 K/ul [facility] # Monos 0.99 (H) 0.24 - 0.36 K/uL [facility] # Bands 0.66 0.00 - 0.80 K/uL [facility] Total Counted [address] [facility] [address] [facility] RBC Morphology Normal [facility] WBC Morphology Normal [facility] Platelet Morphology Normal [facility] Artifact Present [facility] Platelet Conc Adequate [facility] Specimen Blood Narrative Performed At Received comment: [facility] User comments: Slide comments: Performing Organization Address [facility]/State/Zipcode Phone Number [facility] [address] [place] [address] [place] Strep pneumoniae antigen (03/20/2019 8:27 AM CDT) Strep pneumoniae Presumptive negative Presumptive negative [facility] Antigen for pneumococcal for pneumococcal [facility] pneumonia - see comment pneumonia - see CENTER comment, Presumptive negative for pneumococcal meningitis - see comment Specimen Urine Narrative Performed At Presumptive negative for pneumococcal [facility] pneumonia, suggesting no current or recent pneumococcal infection. Infection due to S. pneumoniae cannot be ruled out since the antigen present in the sample may be below the detection limit of the test. Performing Organization Address City/State/Zipcode Phone Number [address] [address] [place] Legionella antigen, urine (03/20/2019 8:14 AM CDT) Legionella Urine Antigen Negative - see [facility] commentComment: Negative [facility] for L. pneumophila serogroup 1 antigen, suggesting no recent or current infection with this serogroup. Legionellosis cannot be ruled out since other serogroups and species may cause disease. Specimen Urine Performing Organization Address [facility]/Zipcode Phone Number [address] [address] [place] Creatinine (03/20/2019 6:42 AM CDT) Creatinine 0.78 0.57 - 1.25 mg/dL [facility] EGFR 72Comment: ESTIMATED GFR IS mL/min/1.73 sq m [facility] NOT ACCURATE CREATININE [facility] CLEARANCE IN PREDICTING GLOMERULAR FILTRATION RATE. ESTIMATED GFR IS NOT APPLICABLE FOR DIALYSIS PATIENTS. Specimen Blood Performing Organization Address City/[facility] Phone Number [address] [address] CENTER after 02/01/2019 Insurance Payer Benefit Plan / Group Subscriber ID Type Phone A ddress MEDICARE MEDICARE A B xxxxxxxxxxx Medicare MCR SUPPLEMENT/INDIVIDUAL AARP/[facility] xxxxxxxxxxx [facility] Advance Directives For more information, please contact:[address] [phone] Code Status Date Activated Date Inactivated Comments Full Code 03/20/2019 6:18 AM 03/23/2019 4:07 PM This code status was determined by: Patient
--- OUTSIDE RECORDS SUMMARY | 2020-02-02 13:03 | XMS REPORT ---
:1945 Author Organization [employer] Care Team Providers Name Role Phone CrawfordRefugio Provider Role Unavailable Allergies, Adverse Reactions, Alerts Substance Reaction Event Type Bactrim DS Info Not Available Drug Allergy Problems Problem Type Condition Code Onset Dates Condition Statu s Assessment Left thyroid nodule E04.1 Active Assessment Depression with anxiety F41.8 Acti ve Assessment Failure to thrive in adult R62.7 A ctive Assessment 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 Assessment Seasonal allergies J30.2 Active Assessment Panic disorder [episodic paroxysmal F41.0 Active anxiety] Problem Seasonal allergies J30.2 Active Assessment Fatty liver K76.0 Active Problem 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 Assessment Acute exacerbation of chronic J44.1 Active obstructive pulmonary disease (COPD) Problem Chronic obstructive pulmonary J44.9 Active disease, unspecified COPD type Problem Left thyroid nodule E04.1 Active Problem 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 Problem Acute exacerbation of chronic J44.1 Active obstructive pulmonary disease (COPD) Problem Pulmonary fibrosis J84.10 Active Assessment Age-related osteoporosis without M81.0 Active current pathological fracture Assessment Generalized anxiety disorder F41.1 Active Problem Generalized anxiety disorder F41.1 Active Assessment Chronic obstructive pulmonary J44.9 Active disease, unspecified COPD type Problem Current moderate episode of major F32.1 Active depressive disorder without prior episode Problem Acute on chronic respiratory J96.20 Active failure, unspecified whether with hypoxia or hypercapnia Problem Panic disorder [episodic paroxysmal F41.0 Active anxiety] Problem Failure to thrive in adult R62.7 A ctive Assessment Pulmonary fibrosis J84.10 Active Assessment 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 Assessment Current moderate episode of major F32.1 Active depressive disorder without prior episode Problem Shingles B02.9 Active Problem Age-related osteoporosis without M81.0 Active current pathological fracture Problem Depression with anxiety F41.8 Acti ve Problem Fatty liver K76.0 Active Medications Medication Code Code Instructions Start End Status Dosage System Date Date [facility] 01883919081 4 GM Orally Active 1 packe t Twice a day mixed with water or non-carbona joanna drink Letairis [facility] 82491362406 10 MG Orally Active 1 tabl et Once a day Montelukast [facility] 74628180547 10 MG once a Active TA KE 1 Sodium day TABLET BY MOUTH ONCE A DAY IN THE EVENING Citalopram [facility] 04598510785 40 MG Orally Active 1 ta blet Hydrobromide Once a day ProAir HFA [facility] 88416647980 108 (90 Base) Active 2 p uffs as MCG/ACT needed Inhalation every 6 hrs Trelegy Ellipta [facility] 45005357400 100-62.5-25 Active 1 puff MCG/INH Inhalation Once a day Glucosamine ND 16178780024 500 MG Orally Active 1 capsule Three times a with a yris l day Claritin [facility] 54247981618 10 MG Orally Active 1 tabl et Once a day Dulera [facility] 69957812033 100-5 MCG/ACT Active 2 puff s Inhalation Twice a day Seaview 3 [facility] [address] MG Active 1 ca psule Orally Once a day Tumersaid [facility] 99314768210 - Orally Active as direct ed Ambrisentan ND 97927477125 10 MG Orally Active 1 t ablet Once a day Proventil HFA [facility] 72375588364 108 (90 Base) Active 1 puff as MCG/ACT needed Inhalation every 4 hrs Acyclovir [facility] 13755638025 200 MG Orally Active 1 ca psule Twice a day Vitamin D [facility] 76820921065 2000 UNIT Active 1 tablet Orally Once a day Prolia [facility] 59920628756 60 MG/ML Active as directed Subcutaneous Albuterol [facility] 95773961629 (2.5 MG/3ML) Active 3 ml as Sulfate 0.083% needed Inhalation Three times a day Tadalafil [facility] 97927551385 2.5 MG Orally Active 1 ta blet ( Once a day 2 MG) Xanax [facility] 53722511996 0.5 MG Orally Active 1 tabl et TID PRN severe anxiety Nasonex [facility] 54534621437 50 MCG/ACT Active 2 sprays in Nasally Once a each day nostril Mucinex Maximum [facility] 13404720277 1200 MG Orally Activ e 1 tablet as Strength every 12 hrs needed Results No Known Results Summary Purpose eClinicalWorks Submission
--- OUTSIDE RECORDS SUMMARY | 2020-02-02 13:03 | XMS REPORT ---
[...] End Status Dosage System Date Date Letairis [facility] 01909366267 10 MG Orally Active 1 tabl et Once a day Albuterol [facility] 06432126818 (2.5 MG/3ML) Active 3 ml as Sulfate 0.083% needed Inhalation Three times a day ProAir HFA [facility] 43632622140 108 (90 Base) Active 2 p uffs as MCG/ACT needed Inhalation every 6 hrs Claritin [facility] 34397689270 10 MG Orally Active 1 tabl et Once a day Nasonex ND 38847470350 50 MCG/ACT Active 2 sprays Nasally Once a in each day nostril Mucinex Maximum [facility] 24466802046 1200 MG Orally Activ e 1 tablet Strength every 12 hrs as needed Montelukast ND 79211670189 10 MG once a Active TA KE 1 Sodium day TABLET BY MOUTH ONCE A DAY IN THE EVENING Trelegy Ellipta [facility] 77506338011 100-62.5-25 Active 1 puff MCG/INH Inhalation Once a day Prolia [facility] 85691986290 60 MG/ML Active as Subcutaneous directed Vitamin D [facility] 01117333716 2000 UNIT Active 1 tablet Orally Once a day Citalopram [facility] 12798963821 40 MG Orally Active 1 ta blet Hydrobromide Once a day Xanax [facility] 33786914095 0.5 MG Orally Active 1 tabl et TID PRN severe anxiety Glucosamine ND 16049073024 500 MG Orally Active 1 capsule Three times a with a day meal [place] 3 [facility] [address] MG Active 1 ca psule Orally Once a day Symbicort [facility] 38700800714 80-4.5 MCG/ACT November 13, Inactive 2 puffs Inhalation 2019 Twice a day Questran [facility] 53093016760 4 GM Orally Active 1 packe t Twice a day mixed with water or non-carbon ated drink Dulera ND 98918658621 100-5 MCG/ACT September Active 2 puff s Inhalation 2019 Twice a day Acyclovir ND 02960012011 200 MG Orally Active 1 ca psule Twice a day Spiriva ND 36161532979 2.5 microgram November 13, Inactive 2 puf fs Respimat Inhaled Once a 2019 day Results No Known Results Summary Purpose [employer]ClinicalWorks Submission
--- OUTSIDE RECORDS SUMMARY | 2020-02-02 13:03 | XMS REPORT ---
[...] thrive in adult R62.7 A ctive Assessment Medicare annual wellness visit, Z00.00 Active subsequent Problem Shingles B02.9 Active Problem Age-related osteoporosis without M81.0 Active current pathological fracture Problem Depression with anxiety F41.8 Acti ve Problem Seasonal allergies J30.2 Active Problem Fatty liver K76.0 Active Problem 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 Medications Medication Code Code Instructions Start End Status Dosage System Date Date Montelukast [facility] 80788103949 10 MG once a Active TA KE 1 Sodium day TABLET BY MOUTH ONCE A DAY IN THE EVENING Aromas 3 [facility] [address] MG Active 1 ca psule Orally Once a day Citalopram ND 30930273759 40 MG Orally Active 1 ta blet Hydrobromide Once a day Dulera ND 44143850145 100-5 MCG/ACT September Active 2 puff s Inhalation 2019 Twice a day Vitamin D [facility] 78314621353 2000 UNIT Active 1 tablet Orally Once a day Nasonex ND 77327173419 50 MCG/ACT Active 2 sprays in Nasally Once a each day nostril Mucinex Maximum [facility] 70679516551 1200 MG Orally Activ e 1 tablet as Strength every 12 hrs needed Celexa [facility] 83884347335 40 MG Active TAKE 1 TABLET BY MOUTH ONCE A DAY Xanax [facility] 79369193469 0.5 MG Orally Active 1 tabl et TID PRN severe anxiety Albuterol [facility] 48558535161 (2.5 MG/3ML) Active 3 ml as Sulfate 0.083% needed Inhalation Three times a day Glucosamine ND 95282902473 500 MG Orally Active 1 capsule Three times a with a yris l day Questran [facility] 28800275257 4 GM Orally Active 1 packe t Twice a day mixed with water or non-carbona joanna drink Prolia [facility] 34021641183 60 MG/ML Active as directed Subcutaneous Trelegy Ellipta [facility] 15716015999 100-62.5-25 Active 1 puff MCG/INH Inhalation Once a day Acyclovir [facility] 14146496526 200 MG Orally Active 1 ca psule Twice a day Letairis [facility] 01813003365 10 MG Orally Active 1 tabl et Once a day Claritin [facility] 04542763828 10 MG Orally Active 1 tabl et Once a day ProAir HFA [facility] 53630766652 108 (90 Base) Active 2 p uffs as MCG/ACT needed Inhalation every 6 hrs Results No Known Results Summary Purpose eClinicalWorks Submission
--- OUTSIDE RECORDS SUMMARY | 2020-02-02 13:03 | XMS REPORT | Continuity of Care Document ---
:1945 Author Organization [facility] t Address 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 Attending Clinician Cata Bro MD Attending Clinician Kevin FLETCHER Attending Clinician Unavailable JANUSZ LUZ Attending Clinician Unavailable SUKH Admitting Clinician Unavailable JUGN Admitting Clinician Unavailable Cata BRO Admitting Clinician Unavailable JANUSZ LUZ Admitting Clinician Unavailable Payers Payer Name Policy Policy Number Effective Expiration Source Type Date Date MEDICAREMEDICARE A xxxxxxxxxxx [facility] MCR xxxxxxxxxxx [facility] SUPPLEMENT/INDIVIDUALAARP/UNIT [facility] MEDICAREMEDICARE PART A AND xxxxxxxxxxx [address] [place] Bxxxxxxxxxxx2001-PresentHO 00:00:00 DARIO MukherjeeMedimarianela AARPADMINIARP xxxxxxxxxxx [address] [place] SUPPLEMENTxxxxxxxxxxx2008- 00:00:00 Yarsanism PresentCommercial Problems Condition Condition Condition Status Onset Resolution [...] 00:00: st 00 Acute Acute Disease Active [place] bronchitis bronchitis 1-15 Me thodi due to due to 00:00: st Rhinovirus Rhinovirus 00 Acute Acute Disease Active [place] respirator respirator 1-14 Me thodi y distress y distress 00:00: st 00 Acute Acute Disease Active [facility] hypoxemic hypoxemic 9-22 [facility] - respirator respirator 00:00: Me dical y failure y failure 00 Cent er Heart Heart Disease Active 2017-[address] [facility] failure failure 2-14 [facility] 00:00: Medical 00 Center Shoulder Shoulder Disease Active 2017-06 [place] arthritis arthritis 0-15 Meth haydee 00:00: st 00 Vitamin D Vitamin D Disease Active Marybel ston deficiency deficiency 5-10 Me thodi disease disease 00:00: st 00 H/O H/O Disease Active [place] Clostridiu Clostridiu 9-07 Me thodi m m 00:00: st difficile difficile 00 infection infection September - Jan Osteoporos Osteoporos Disease Active Overview : [place] is s/p is s/p 9-07 No Methodi RECLAST RECLAST 00:00: reactions st 12/2014, 12/2014, 00 during 04/2016, 04/2016, infusion 04/2017 but diarrhea Leg length Leg length Disease Active [place] difference difference 9-07 Me thodi , acquired , acquired 00:00: st 00 Scoliosis Scoliosis Disease Active Marybel ston 03-05 Methodi 00:00: st 00 Renal cyst Renal cyst Disease Active [place] s/p s/p 03-05 Methodi decorticat decorticat 00:00: st ion (L) ion (L) 00 complicate complicate d post op d post op 2004 2004 CAT CAT Disease Active Overview: [place] (mycobacte (mycobacte 03-05 2008 Left Methodi [...] 2007 n Abnormal Abnormal Disease Active Overview: charlene CT scan, CT scan, 03-05 Caseating Met hodi chest chest 00:00: granuloma st associate d with elastosis and calcifica tion, benign lung changes of fibrosis, mucous plugging, bronchiti s, emphysema and crystals consisten t with silicateB enign lymph node with anthracot ic pigment and crystals consisten t with silicate and LN with sinus histiocyt osis and anthracot ic pigment Leucocytoc Leucocytoc Disease Active [facility] lastic lastic 03-05 Methodi vasculitis vasculitis 00:00: st 00 Herpes Herpes Disease Active Bhakta infection infection 03-05 Meth haydee on chronic on chronic 00:00: st valacyclov valacyclov 00 ir ir Shingles Shingles Problem [facility] Age-relate Age-relate Problem Active [facility] - osteoporos osteoporos Me moria is without is without l current current Outpati pathologic pathologic en t al al Clinics fracture fracture Fatty Fatty Problem Active [facility] liver liver [facility] Depression Depression Problem Active C [facility] with with [facility] anxiety anxiety [facility] l Out[facility] ent Clinics Oxygen Oxygen Problem Active [facility] dependent dependent [facility] Chronic Chronic Problem Active [facility] obstructiv obstructiv Radha kes - e e Memoria pulmonary pulmonary l disease, disease, Outpat i unspecifie unspecifie en t d COPD d COPD Clinics type type Seasonal Seasonal Problem Active [facility] allergies allergies [facility] Secondary Secondary Problem Active [facility] pulmonary pulmonary Luke s - arterial arterial Memori a hypertensi hypertensi l on on Outpati ent Clinics Acute Acute Problem Active [facility] exacerbati exacerbati Radha kes [...] Memoria l Outpati ent Clinics Pulmonary Pulmonary Problem Active [facility] fibrosis [facility] Generalize Generalize Problem Active C [facility] d anxiety d anxiety Luke s - disorder disorder Memori a l Outpati ent Clinics Current Current Problem Active [facility] moderate moderate [facility] - episode of episode [...] thrive in [facility] - adult adult [facility] Allergies, Adverse Reactions, Alerts Allergy Allergy Status Severity Reaction(s) Onset Inactive Treating Comm ents Source Name Type Date Date Clinician Sulfa Propensi Active Swelling 2017-[address] [facility] (Sulfona ty to 2-13 [facility] - mide adverse 00:00: Medical Antibiot reaction 00 Center ics) s Sulfa Propensi Active Swelling "break [place] (Sulfona ty to 6-08 out" Methodi mide adverse 00:00: st Antibiot reaction 00 ics) s to drug Bactrim Adverse Active Info Not [facility] DS Reaction Available [facility] Family History Family Member Diagnosis Comments Start Date Stop Date Source Natural brother Leukemia Yony Velazquez ethodist Natural father Alcohol abuse Yony Lundberg Natural father Cirrhosis [facility] thodist Natural mother COPD [facility] thodist Natural sister COPD [facility] thodist Natural sister Endometriosis [place] Yarsanism Natural sister Other [facility] thodist Social History Social Habit Start Date Stop Date Quantity Comments Source History of tobacco Current smoker [facility] History SDOH [facility] Alcohol Std Drinks [facility] History SDOH [facility] - Alcohol Binge Medical Rebel ter Sex Assigned At [place] M ethodist Alcohol intake 2019-09-12 2019-09-12 Current [facility] thodist 00:00:00 00:00:00 non-drinker of alcohol (finding) Cigarettes smoked 2018-06-14 2018-06-[address] [facility] - current (pack per 00:00:00 00:00:00 [facility] day) - Reported Cigarette 2018-06-14 2018-06-[address] [facility] - pack-years 00:00:00 00:00:00 Medical Center History SDOH 2018-06-10 2018-06-[address] [facility] - Alcohol Frequency 00:00:00 00:00:00 [facility] Alcohol Comment 2015-12-05 2015-12-05 stopped 2005 [facility] 00:00:00 00:00:00 Smoking Status Start Date Stop Date Source Former smoker 2019-09-12 00:00:00 2019-09-12 00:00:00 [facility] Medications Ordered Filled Start Stop Current Ordering Indication Dosage Frequency Signature Comments Components Source Medication Medication Date Date Medication? Clinician (SIG) Name Name Amoxicillin Amoxicillin 2020- Yes [place] [address] -Pot -Pot 7-14 07-24 [facility] - Clavulanate Clavulanate 00:00: 00:00 [facility] 00 [facility] Dulera Dulera 0 Yes [place] [address] 4-17 [facility] - 00:00: [facility] 00 [facility] albuterol 2019-0 Yes 2{puff} Q4H Inhale 2 [place] (PROAIR 2-25 puffs Methodi HFA,PROVENT 12:57: every 4 st [place] 52 (four) HFA,VENTOLI hours as N HFA) 90 needed for mcg/actuati wheezing on inhaler or shortness of breath. cholecalcif 2019-0 Yes 2000U QD Take 2,000 Bhakta [place], [...] needed (for mild pain or fever). Lactobacill 2020-0 2020- No 1{tbl} Q.[id number] Take 1 Bhakta us 1-14 01-14 [id number] tablet by Met britney Urias 15:42: 00:[address] ulgar 07 :00 (three) (FLORANEX) times a 1 million day. cell tablet predniSONE 2019- No 40mg QD Take [address] (DELTASONE) 03-23 tablets Luke s - 20 MG 00:00: 23:59 (40 mg Medical tablet 00 :00 total) by Center mouth daily for 5 days. levoFLOXaci 2019- No 750mg Take [address] n 03-23 tablet [facility] - (LEVAQUIN) 00:00: 23:59 (750 mg Med ical 750 MG 00 :00 total) by Center tablet mouth every other day for 4 days. ambrisentan Yes 10mg QD Take [address] (LETAIRIS) - by mouth [facility] - 10 MG 14:04: daily. Medical tablet 37 Center cholecalcif Yes 2000U QD Take 2,[address] loreto, 9-22 Units by [facility] - vitamin D3, 06:21: mouth Medic al (VITAMIN 38 daily . Bud D3) 1,000 unit capsule acyclovir 2019- No Herpes TAKE 1 [facility] [facility] (ZOVIRAX) 01-03 infection CAPSULE BY Methodi 200 MG 00:00: 00:[address] capsule 00 :00 TIMES A DAY glucosamine 2017-06 Yes 1{tbl} Q.[id number] Take [address] -chondroiti -14 [id number] tablet by Merle - n 500-400 06:42: 3D mouth 3 Medic al mg tablet 35 (three) Center times daily. denosumab 2017-06 Yes 60mg Inject [address] (PROLIA) 60 2-14 mg [facility]ukes - mg/mL Syrg 06:42: subcutaneo Caroline davison 35 usly every Center 6 (six) months. ALPRAZolam 2017-06 Yes .5mg Take 0.[address] (XANAX) 0.5 2-13 mg by [facility]ukes - MG tablet 14:44: mouth as Medi sanya 58 needed for Center Anxiety. glucosamine 2017-06 Yes QD Take by [facility] sulfate 2-13 mouth [facility] - (GLUCOSAMIN 14:44: daily. Medi sanya E) 500 mg 57 Center Tab albuterol 2017-06 Yes 2{puff} Inhale [address] HFA (PROAIR 2-13 puffs by Luke s - HFA) 90 14:44: mouth via Medic al mcg/actuati 57 inhaler Cente r on inhaler every 4 (four) hours as needed for Wheezing. albuterol 2017-06 Yes 1{ampul Q.5D Take [address] (ACCUNEB) 2-13 e} ampule by Lukes - 1.25 mg/3 14:44: nebulizati Me dical mL 57 on 2 (two) Center nebulizer times solution daily. acyclovir 2017-06 Yes 200mg Q.5D Take [address] (ZOVIRAX) 2-13 mg by [facility]ukes - 200 MG 14:44: mouth 2 Medical capsule 57 (two) Center times daily. tiotropium 2017-06 Yes QD Inhale by [facility] bromide 2-13 mouth via Lukes - (SPIRIVA 14:44: inhaler Medica l RESPIMAT) 57 every Center 2.5 morning. mcg/actuati on Mist budesonide- 2017-06 Yes 2{puff} Q.5D Inhale [address] formoterol 2-13 puffs by [facility]ukes - (SYMBICORT) 14:44: mouth via M edical 80-4.5 57 inhaler 2 Center mcg/actuati (two) on inhaler times daily. turmeric 2017-06 Yes QD Take by [facility] 400 mg Cap 2-13 mouth Lukes - 14:44: daily. Medical 56 Center omega-3 2017-06 Yes 1g QD Take [address] fatty 2-13 by mouth Lukes - acids-fish 14:44: daily. Medic al oil 56 Center 340-1,000 mg Cap per capsule citalopram 2017-06 Yes 40mg QD Take [address] (CELEXA) 40 2-13 by mouth Luke s - MG tablet 14:44: daily. Medica l 56 Center montelukast 2017-06 Yes 10mg QD Take [address] (SINGULAIR) 2-13 by mouth Luke s - 10 mg 14:44: nightly. Medical tablet 56 Center guaiFENesin 2017-06 Yes 1200mg QD Take 1,[address] (MUCINEX) 2-13 mg by [facility]ukes - 600 mg 12 14:44: mouth Medical hr tablet 56 daily. Center denosumab 2017-06- No Osteoporosi 60mg Q180D Bhakta (PROLIA) 1-07-12 s, Methodi syringe 60 10:30: 22:[address] mg 00 :29 luís diclofenac 2017-06- No Q.5D Apply [place] (VOLTAREN) 0-15 14 topically Met hodi 1 % gel 00:00: 00:00 2 (two) st 00 :00 times a day. montelukast Yes 10mg QD Take 10 mg Bhakta (SINGULAIR) 7-30 by mouth Meth haydee 10 mg 00:00: nightly. st tablet 00 ALPRAZolam Yes .5mg Q.[id number] Take 0.5 Bhakta (XANAX) 0.5 7-29 [id number] mg by M ethodi MG tablet 00:00: [...] on inhaler 00 times a day. SPIRIVA Yes 2{puff} QD Take 2 [place] RESPIMAT 6-01 puffs by Methodi 2.5 00:00: mouth st mcg/actuati 00 daily. on mist Prolia Prolia Yes Refugio as [facility] directed [facility] Nasonex Nasonex Yes [place] [address] [facility] in each Lukes - nostril Memoria l Outpati ent Clinics Odin 3 Odin 3 Yes Refugio [address] [facility] ProAir HFA ProAir HFA Yes Refugio [address] [facility] needed [facility] Albuterol Albuterol Yes Ref[place] [address] Sulfate Sulfate Crawford needed [facility] Questran Questran Yes Refugio [address] [facility] mixed with Lukes - water or Memoria non-carbon l ated drink Outpati ent Clinics Xanax Xanax Yes [place] [address] [facility] Letairis Letairis Yes Refugio [address] [facility] Glucosamine Glucosamine Yes Refugio [address] [facility] with a Lukes - meal Memoria l Outpati ent Clinics Vitamin D Vitamin D Yes Refugio [address] [facility] [facility] Citalopram Citalopram Yes Refugio [address] Hydrobromid Hydrobromid [facility] - e e Memoria l Outpati ent Clinics Claritin Claritin Yes [place] [address] [facility] Mucinex Mucinex Yes Ref[place] [address] Maximum Maximum Crawford as needed Tonia es - Strength Strength Memoria l Outpati ent Clinics Acyclovir Acyclovir Yes Refugio [address] [facility] Montelukast Montelukast Yes Refugio TAKE [address] Sodium Sodium Crawford TABLET BY Lukes - MOUTH ONCE Memoria A DAY IN l THE Outpati EVENING ent Clinics Trelegy Trelegy Yes [place] 1 puff [facility] Ellipta Ellipta [facility]ics Tumersaid Tumersaid Yes Refugio as [facility] directed [facility] Tadalafil Tadalafil Yes Refugio 1 tablet ( [facility] Crawford 2 MG) [facility] Clinics Ambrisentan Ambrisentan Yes [place] [address] [facility] Proventil Proventil Yes Refugio [address] HFA HFA Crawford needed [facility] Immunizations Ordered Filled Immunization Date Status Comments [facility] Immunization Name Name Prevnar 13 Prevnar 13 2019-05-[address] [facility] - -Pneumonia Vaccine -Pneumonia Vaccine 00:00:00 [facility] FLUZONE QUAD PF 2017-03-18 Completed Bhakta M ethodist 00:00:00 Vital Signs Vital Name Observation Time Observation Value Comments Source Systolic blood 2019-08-23 12:31:00 95 mm[Hg] Stephanieto n Yarsanism pressure Diastolic blood 2019-08-23 12:31:00 46 mm[Hg] [place] Yarsanism pressure Heart rate 2019-08-23 12:31:00 90 /min Bhakta Yarsanism Respiratory rate 2019-08-23 12:31:00 26 /min [place] Yarsanism Oxygen saturation in 2019-08-23 12:31:00 98 /min [place] Yarsanism Arterial blood by Pulse oximetry Body temperature 2019-08-23 11:39:00 36.5 Chelsey Stephanie hanna Yarsanism Body height 2019-08-23 07:36:00 144.8 cm [place] Yarsanism Body weight 2019-08-23 07:36:00 36.94 kg [place] Yarsanism BMI 2019-08-23 07:36:00 17.62 kg/m2 [place] Yarsanism Systolic blood 2019-03-23 11:00:00 115 mm[Hg] [facility] Diastolic blood 2019-03-23 11:00:00 53 mm[Hg] [facility] Heart rate 2019-03-23 11:00:00 66 /min [facility] Body temperature 2019-03-23 11:00:00 36.5 Chelsey [facility] Respiratory rate 2019-03-23 11:00:00 18 /min [facility] Oxygen saturation in 2019-03-23 11:00:00 95 /min [facility] Arterial blood by Medical Ce nter Pulse oximetry Body weight Measured 2019-03-23 08:03:00 39 kg [facility] BMI 2019-03-23 08:03:00 18.27 kg/m2 [facility] Body height 2019-03-20 06:00:00 146.1 cm [facility] Procedures Procedure Date / Time Performing Clinician Source Performed SARS-COV2/RT-PCR ([facility] & 2019-11-24 00:25:[address] [facility]F [facility] SARS-COV2/RT-PCR ([facility] & 2019-11-07 16:39:[address] [facility] CV RIGHT HEART CATH 2019-08-23 11:16:44 SebastiánLopez nunez Bhkata Yarsanism Jamaluddin HC COMPLETE BLD COUNT 2019-08-23 08:10:00 SebastiánLopez nunez Umberto on Yarsanism W/AUTO DIFF Jamaluddin ESTIMATED GFR 2019-08-23 08:09:00 Lopez Luz Met hodist Jamaluddin POC PANEL 2019-08-23 08:09:00 Lopez Luz Met hodist Jamaluddin HC COMPLETE BLD COUNT 2019-07-15 05:05:00 Jean Pro Yarsanism W/AUTO DIFF BASIC METABOLIC PANEL 2019-07-15 05:05:00 Jean Pro Yarsanism MAGNESIUM LEVEL 2019-07-15 05:05:00 Jean Pro Yarsanism PHOSPHORUS LEVEL 2019-07-15 05:05:00 Welch, Bishop [place] on Yarsanism ESTIMATED GFR 2019-07-15 05:05:00 Welch, Bishop Cordova n Yarsanism CT CHEST WO CONTRAST 2019-07-14 15:27:13 Welch, Bishop [place] Yarsanism CT SOFT TISSUE NECK WO 2019-07-14 15:26:55 Welch, Bishop Bhakta Yarsanism CONTRAST PARTIAL THROMBOPLASTIN 2019-07-14 07:00:00 Marsh, Irwin [facility] Yarsanism TIME (PTT) HC COMPLETE BLD COUNT 2019-07-14 06:47:00 Jean Pro Yarsanism W/AUTO DIFF BASIC METABOLIC PANEL 2019-07-14 06:47:00 Jean Pro [place] Yarsanism ESTIMATED GFR 2019-07-14 06:47:00 Thor Feng Me thodist PROTHROMBIN TIME WITH INR 2019-07-14 06:47:00 Marsh, Irwin [facility] Yarsanism PARTIAL THROMBOPLASTIN 2019-07-14 06:47:00 [facility] TIME (PTT) SPUTUM CULTURE 2019-07-13 16:30:00 Thor Feng Me thodist GRAM STAIN 2019-07-13 16:30:00 Thor Feng Me thodist POC GLUCOSE 2019-07-13 12:33:00 Thor Feng Me thodist TTE COMPLETE, WO 2019-07-13 08:40:00 LucindaBret gallagher Met hodist CONTRAST, W DOPPLER ([id number]) POC GLUCOSE 2019-07-13 07:48:00 Thor Feng Me thodist HC COMPLETE BLD COUNT 2019-07-13 05:30:00 LucindaBert gallagherto n Yarsanism W/AUTO DIFF COMPREHENSIVE METABOLIC 2019-07-13 05:30:00 LucindaBert gallagher Yarsanism PANEL B NATRIURETIC PEPTIDE 2019-07-13 05:30:00 LucidnaBert gallagher n Yarsanism LACTIC ACID LEVEL 2019-07-13 05:30:00 Sa Lucindai Prasanna Bhakta Me thodist THYROID STIMULATING 2019-07-13 05:30:00 Lucinda Bert Mims Yony Yarsanism HORMONE ESTIMATED GFR 2019-07-13 05:30:00 Thor Feng Me thodist POC GLUCOSE 2019-07-13 04:49:00 Thor Feng Me thodist POC GLUCOSE 2019-07-13 01:47:00 Thor Feng Me thodist TROPONIN 2019-07-12 22:08:00 JungYoselin-[facility] Yarsanism ARTERIAL BLOOD GAS 2019-07-12 21:12:00 Jordan Craig Yarsanism URINE CULTURE 2019-07-12 18:15:00 Jordan Craig Me thodist URINALYSIS SCREEN AND 2019-07-12 18:08:00 Jordan Craig Yarsanism MICROSCOPY, WITH REFLEX TO CULTURE TROPONIN 2019-07-12 18:08:00 [facility] LACTIC ACID LEVEL 2019-07-12 18:08:00 Jordan Craig RESPIRATORY PATHOGEN 2019-07-12 16:56:00 Jordan Craig on Yarsanism PANEL XR CHEST 1 VW PORTABLE 2019-07-12 16:15:36 Jordan Craig BLOOD CULTURE, AEROBIC & 2019-07-12 15:31:00 Jordan Craig ANAEROBIC LACTIC ACID LEVEL 2019-07-12 15:30:00 Jordan Carig ARTERIAL BLOOD GAS 2019-07-12 15:30:00 Jordan Craig ECG ED PRELIMINARY 2019-07-12 15:12:18 Jordan Craig INTERPRETATION HC COMPLETE BLD COUNT 2019-07-12 14:55:00 [facility] Norma Lundberg W/AUTO DIFF COMPREHENSIVE METABOLIC 2019-07-12 14:55:00 Mel Fengh Judy Lundberg PANEL TROPONIN 2019-07-12 14:55:00 Mel Fengh Judy Lundberg B NATRIURETIC PEPTIDE 2019-07-12 14:55:00 [facility] Norma Lundberg ESTIMATED GFR 2019-07-12 14:55:00 Mookie Feng ECG 12-LEAD 2019-07-12 14:47:59 Mel Fengh Judy Yony Lundberg BONE DENSITY PERIPHERAL 2019-04-19 13:21:04 Laurel Dykes ton Yarsanism BONE DENSITY 2019-04-19 13:20:21 Laurel Dykes Meth odist RHYTHM STRIP - SCAN 2019-03-25 12:16:07 Provider, Default [facility] RHYTHM STRIP - SCAN 2019-03-24 14:33:54 Provider, Default [facility] VANCOMYCIN LEVEL, TROUGH 2019-03-23 09:05:00 Taylor Robles [facility] BASIC METABOLIC PANEL (7) 2019-03-23 04:38:00 Beckie Khan [facility] CBC W/PLT COUNT & AUTO 2019-03-23 04:38:00 Beckie Khan [facility] BASIC METABOLIC PANEL (7) 2019-03-22 04:25:00 Beckie Khan [facility] CBC W/PLT COUNT & AUTO 2019-03-22 04:25:00 Beckie Khan [facility] RESPIRATORY PANEL [facility] 2019-03-21 15:56:00 Kathi Acharya [facility] VANCOMYCIN LEVEL, TROUGH 2019-03-21 09:44:00 Taylor Robles [facility] BASIC METABOLIC PANEL (7) 2019-03-21 07:32:00 Beckie Khan [facility] CBC W/PLT COUNT & AUTO 2019-03-21 07:32:00 Beckie Khan [facility] SPUTUM CULTURE + GRAM 2019-03-20 11:41:00 Stephanie Bro [facility] CBC W/PLT COUNT & AUTO 2019-03-20 08:43:00 Beckie Khan [facility] (CELLAVISION MANUAL DIFF) 2019-03-20 08:43:00 Beckie Khan [facility] STREP PNEUMONIAE ANTIGEN 2019-03-20 08:27:00 Stephanie Bro [facility] LEGIONELLA URINE ANTIGEN 2019-03-20 08:14:00 Stephanie Bro [facility] CREATININE 2019-03-20 06:42:00 Denis Montgomery [facility] BASIC METABOLIC PANEL (7) 2019-03-20 06:42:00 Beckie Khan [facility] Plan of Care Planned Activity Planned Date Details Comments Source Future Scheduled 2020-01-28 INFLUENZA VACCINE [place] Y[facility]ism Test 00:00:00 [code = INFLUENZA VACCINE] Future Scheduled 2008-12-23 65+ PNEUMOCOCCAL Bhakta Yarsanism Test 00:00:00 VACCINE (2 of 2 - PPSV23) [code = 65+ PNEUMOCOCCAL VACCINE (2 of 2 - PPSV23)] Future Scheduled 1993-12-23 COLONOSCOPY SCREENING Ho charlene Yarsanism Test 00:00:00 [code = COLONOSCOPY SCREENING] Future Scheduled 1993-12-23 SHINGLES VACCINES (#1) H akhil Yarsanism Test 00:00:00 [code = SHINGLES VACCINES (#1)] Encounters Start End Encounter Admission Attending Care Care Encounter Source Date/Time Date/Time Type Type Clinicians Facility Department ID 2020-01-27 2020-01-27 [facility] [id number] 11:45:00 11:45:00 t [employer] [facility] l Medicine Outpati ent Clinics 2020-01-10 2020-01-10 [facility] [id number] 13:00:00 13:00:00 t [employer] [facility] Medicine Outpati ent Clinics 2020-01-02 2020-01-02 [facility] [id number] 16:56:00 16:56:00 t [employer] [facility] Medicine Outpati ent Clinics 2019-12-28 2019-12-28 [facility] [id number] 11:00:00 11:00:00 t [employer] [facility] Medicine Outpati ent Clinics 2019-12-28 2019-12-28 [facility] [id number] 11:00:00 11:00:00 t [employer] [facility] Medicine Outpati ent Clinics 2019-11-14 2019-11-14 [facility] [id number] 10:45:00 10:45:00 t [employer] [facility] Medicine Outpati ent Clinics 2019-10-31 2019-10-31 [facility] [id number] 10:54:00 10:54:00 t [employer] [facility] Medicine Outpati ent Clinics 2019-10-14 2019-10-14 [facility] [id number] 09:59:00 09:59:00 t [employer] [facility] Medicine Outpati ent Clinics 2019-09-29 2019-09-29 [facility] [id number] 14:30:00 14:30:00 t [employer] [facility] [facility] 2019-09-22 2019-09-22 [facility] [id number] [facility] 16:54:00 16:54:00 [place] [employer] [facility] Medicine l Medicine Outpati ent Clinics 2019-08-23 2019-08-23 Outpatient SUKH [facility] [id number] [place] 00:00:00 00:00:00 LOPEZ [address] 2019-08-16 2019-08-16 [facility] [id number] 09:30:00 09:30:00 [place] [employer] [facility] Medicine l Medicine Outpati ent Clinics 2019-07-21 2019-07-21 [facility] [id number] 08:00:00 08:00:00 [place] [employer] [facility] Medicine l Medicine Outpati ent Clinics 2019-07-12 2019-07-15 Inpatient JUNG [facility] [id number] 60 [place] 00:00:00 00:00:00 THUYEN [address] 2019-06-30 2019-06-30 [facility] [id number] 13:00:00 13:00:00 [place] [employer] [facility] Family Medicine l Medicine Outpati ent Clinics 2019-06-27 2019-06-27 [facility] [id number] 09:57:00 09:57:00 t [place] [employer] [facility] Family Medicine l Medicine Outpati ent Clinics 2019-05-11 2019-05-11 [facility] [id number] 11:15:00 11:15:00 [place] [employer] [facility] Medicine l Medicine Outpati ent Clinics 2019-04-19 2019-04-19 Outpatient KAYE [facility] [id number] [place] 00:00:00 00:00:00 LAUREL [address] 2019-04-19 2019-04-19 Outpatient KAYE [facility] [id number] [place] 00:00:00 00:00:00 LAUREL [address] 2019-04-11 2019-04-11 [facility] [id number] 13:15:00 13:15:00 [place] [employer] [facility] Medicine l Medicine Outpati ent Clinics 2019-03-28 2019-03-28 [facility] [id number] 14:30:00 14:30:00 [place] [employer] [place] - Drive [facility] Medicine l Medicine Outpati ent Clinics 2019-03-08 2019-03-08 [facility] [id number] 10:45:00 10:45:00 [place] [employer] Luke s - Drive [facility] l Medicine Outpati ent Clinics 2019-02-18 2019-02-18 [facility] [id number] 10:42:00 10:42:00 [place] [employer] Luke s - Drive [facility] l Medicine Outpati ent Clinics 2019-01-25 2019-01-25 [facility] [id number] 10:00:00 10:00:00 [place] [employer] s - Drive [facility] l Medicine Outpati ent Clinics 2019-01-05 2019-01-05 [facility] [id number] 11:44:00 11:44:00 [place] [employer] s - Drive [facility] Medicine Medicine Outpati ent Clinics 2018-10-27 2018-10-27 [facility] [id number] 10:15:00 10:15:00 [place] [employer] s - Drive [facility] Medicine l Medicine Outpati ent Clinics 2018-09-13 2018-09-13 [facility] [id number] 10:00:00 10:00:00 [place] [employer] s - Drive [facility] Medicine Medicine Outpati ent Clinics 2018-08-11 2018-08-11 [facility] [id number] 10:00:00 10:00:00 [place] [employer] s - Drive [facility] Medicine Medicine Outpati ent Clinics 2018-07-19 2018-07-19 [facility] [id number] 09:15:00 09:15:00 [place] [employer] - Drive [facility] Medicine l Medicine Outpati ent Clinics 2018-06-07 2018-06-07 [facility] [id number] 08:00:00 08:00:00 [place] [address] Luke s - Drive [facility] 2018-02-26 2018-02-26 [facility] [id number] 09:30:00 09:30:00 [place] [address] Luke s - Drive [facility] Clin[facility] 2018-01-08 2018-01-08 [facility] [id number] 10:30:00 10:30:00 [place] [address] Luke s - Drive [facility] Clin[facility] 2017-12-09 2017-12-09 [facility] [id number] 11:06:00 11:06:00 [place] [address] Luke s - Drive [facility] Clin[facility] 2017-12-09 2017-12-09 [facility] [id number] 10:15:00 10:15:00 [place] [employer] Luke s - Drive [facility] Clin[facility] 2017-11-18 2017-11-18 [facility] [id number] 10:32:00 10:32:00 [place] [address] Luke s - Drive [facility] Clin[facility] 2017-11-18 2017-11-18 [facility] [id number] 09:00:00 09:00:00 [place] [employer] s - Drive [facility] Clin[facility] 2017-09-30 2017-09-30 [facility] [id number] 10:30:00 10:30:00 [place] [employer] - Drive [facility] Results Test Description Test Time Test Comments Results Result Comments Source SARS-CoV2/RT-PCR ([facility]) 2019-11-24 06:46:00 Test Item Value Reference Range Interpretation Comme nts SARS-COV2/RT-PCR (test code = Not Detected Not Detected, Negative 30278-5) SARS-COV-2 PERFORMING LAB [facility] (test code = 49821-7) TATA (test code = TATA) Negative results do not preclude SARS-CoV-2 infection [...] of the Act. Fact Sheet for Healthcare Providers:https://www.[employer]/Documents/Xpert%20Xpress %20SARS%20CoV-2/Fact%20Sheets /302-3802%10SQUB-KOJ-6%20HEAL THCARE%20PROVIDERS%20FACT%20S HEET.pdf Fact Sheet for Healthcare Patients:https://www.Wysiwyg/Documents/Xpert%20Xpress% 20SARS%20CoV-2/Fact%20Sheets/ 302-3801%06AFEK-TFQ-0%20PATIE NT%20FACT%20SHEET.pdf Performing Laboratory:[facility] [place], [place] [address] [place], [place] [address]ARS-COV2/RT-PCR ([facility])2019-11-24 06:46:00 Test Item Value Reference Range Interpretation Comments SARS-COV2/RT-PCR (test Not Detected Not Detected, Negative code = 6806383) SARS-COV-2 PERFORMING LAB [facility] (test code = 9790219) Negative results do not preclude SARS-CoV-2 infection [...] of the Act.Fact Sheet for Healthcare Pro viders:https://www.[employer]/Documents/Xpert%20Xpress%20SARS%20CoV-2/Fact%20Sh eets/302-3802%64AHPZ-LHR-8%20HEALTHCARE%20PROVIDERS%20FACT%20SHEET.pdfFact Sheet for Healthcare Patients:https://www.[employer]ne[employer]/Documents/Xpert%20Xpress%20SARS%20CoV-2/Fact%20Sheets/302-3801%20SARS-COV -2%20PATIENT%20FACT%20SHEET.pdfPerforming Laboratory:[facility] [place], [place] [address], [place] [address]EDKW-UJE4/RT-PCR ([facility]) 2019-11-07 23:10:00 Test Item Value Reference Range Interpretation Comments SARS-COV2/RT-PCR (test Not Detected Not Detected, Negative code = 2064364) SARS-COV-2 PERFORMING LAB [facility] (test code = 9049755) Negative results do not preclude SARS-CoV-2 infection [...] of the Act.Fact Sheet for Healthcare Pro viders:https://www.[employer]/Documents/Xpert%20Xpress%20SARS%20CoV-2/Fact%20Sh eets/302-3802%20LPBH-KTF-9%20HEALTHCARE%20PROVIDERS%20FACT%20SHEET.pdfFact Sheet for Healthcare Patients:https://www.[employer]/Documents/Xpert%20Xpress%20SARS%20CoV-2/Fact%20Sheets/3023801%20SARS-COV -2%20PATIENT%20FACT%20SHEET.pdfPerforming Laboratory:[address] [place], [place] [address]Bowo lab dbbconwrk3627-88-32 15:34:41 INTERVENTIONAL CARDIOLOGY PROCEDURE NOTE[ Lopez Luz MD | Kari Carmona MD | Cullen Edwards MD ] PATIENT: Seema Romo, MR#: [id number], : 1945 DATE OF SERVICE: 08/23/2019 Pre-Procedure Diagnosis: Pulmonary HTN Post-Procedure Diagnosis: moderate Pulm HTN Procedure Performed: - Right heart catheterization (RHC)- Ultrasound access: RIJ- Monitoring under moderate sedation for 45 minutesPrimary Hydrographer: Sukh Anesthesia/Sedation: Moderate Sedation (IV Versed and IV [...] call if questions arise. Lopez Luz MD [facility] FSCAIClinical and Interventional CardiologyOffice: ; Answering Service: Pager: [phone] [facility] with platelet and qqyknnvnnhcj6075-43-81 08:55:13 Test Item Value Reference Range Interpretation Comments WBC (test code = 20533-4) 7.49 4.50- 11.00 k/uL RBC (test code = 59920-4) 3.94 m/uL 4.2-5.5 L HGB (test code = 718-7) 11.9 g/dL 12-16 L HCT (test code = 4544-3) 37.4 % 37-47 MCV (test code = 787-2) 94.9 fL 82-100 MCH (test code = 785-6) 30.2 pg 27-34 MCHC (test code = 786-4) 31.8 g/dL 31-37 RDW - SD (test code = 49.2 fL 37-55 56178-4) MPV (test code = 24173-8) 9.8 fL 8.8-13.2 Platelet count (test code 233 150- 400 k/uL = 45703-4) Nucleated RBC (test code 0.00 /100 WBC = 47717-2) Neutrophils (test code = 50.9 % 39-69 03283-3) Lymphocytes (test code = 32.2 % 25-45 19302-1) Monocytes (test code = 11.7 % 0-10 H 14934-7) Eosinophils (test code = 3.2 % 0-5 33943-6) Basophils (test code = 1.7 % 0-1 H 19453-9) Immature granulocytes 0.3 % 0-1 "Immat ure (test code = 28818-2) granul ocytes" (promyelocytes, myelocytes, metamyelocytes) Lab Interpretation (test Abnormal code = 00449-9) [place] MethodistPOC omkki8948-29-29 08:14:26 Test Item Value Reference Range Interpretation Comments POC sodium (test code 141 mmol/L 135-148 = 2947-0) POC potassium (test 4.2 mmol/L 3.5-5 code = 6298-4) POC chloride (test 102 mmol/L 99-109 code = 2069-3) POC CO2 (test code = 31 mmol/L 24--8) POC glucose (test 91 mg/dL 65-99 code = 2339-0) POC BUN (test code = 9 mg/dL 8-24 6299-2) POC creatinine (test 0.6 mg/dl 0.5-0.9 code = 87151-9) POC hematocrit (test 39 % 37-47 code = 4544-3) POC anion gap (test 13 mmol/L 8 Hydrographer Name: Pacres code = 8278162) NenitaDevice ID: [id number] [place] MethodistEstimated PPI2536-97-09 08:14:26 Test Item Value Reference Range Interpretation Comments Estimated GFR (test 89 mL/min/1.73 m2 Caterg ory Units code = 71489-5) Interpretati onG1 >=90 Normal or highG2 60-89 Mildly kqhgjcakvA8q 45-59 Mildly to mode rately rbdflylenJ0b 30-44 Moderately to severely decreasedG4 15-29 Severely decre asedG5 <15 Kidn ey failureThe eGFR was calculated steffi g the Chronic Kidney Disease Epidemiology Co llaboration (CKD-EPI) equat ion. Interpretation is based on recommendations of the National Kidney Foundation-Kidn ey Disease Outcomes Qualit y Initiative (NKF-KDOQI) pub lished in 2014. [place] MethodistBlood culture, aerobic & npqirjbxq4396-27-24 19:33:07 Test Item Value Reference Range Interpretation Comments Blood culture No growth Specimen isolate (test after 5 days InformationSpe cimen code = 600-7) of Source: BloodS pecimen incubation. Site: Antecubit al Left [place] MethodistSputum ghpdbyn3149-73-83 09:59:50 Test Item Value Reference Range Interpretation Comments Sputum culture Normal oral Specimen isolate (test yenni InformationSpe cimen code = 2234) isolated. Source: SputumS pecimen Site: Expectora joanna [place] MethodistBasic metabolic qpbha2746-24-60 07:10:18 Test Item Value Reference Range Interpretation Comments Sodium (test code = 2951-2) 142 135- 148 mEq/L Potassium (test code = 2823-3) 4.7 3.5- 5.0 mEq/L Chloride (test code = 2075-0) 107 98- 112 mEq/L CO2 (test code = 8-9) 28 24- 31 mEq/L Anion gap (test code = 70936-6) 7@ANIO 7- 15 mEq/L BUN (test code = 3094-0) 10 mg/dL 8-23 Creatinine (test code = 2160-0) 0.70 mg/dL 0.5-0.9 Glucose (test code = 2345-7) 91 mg/dL 65-99 Calcium (test code = 82580-7) 8.8 mg/dL 8.8-10.2 [place] MethodistMagnesium uuowp3288-06-13 07:10:18 Test Item Value Reference Range Interpretation Comments Magnesium (test code = 48203-0) 2.1 mg/dL 1.6-2.4 [place] MethodistPhosphorus krrpd9135-64-28 07:10:18 Test Item Value Reference Range Interpretation Comments Phosphorus (test code = 2777-1) 3.4 mg/dL 2.4-4.5 [place] MethodistPartial thromboplastin time, gboaojxnn6249-10-70 00:23:33 Test Item Value Reference Range Interpretation Comments PTT (test code = 32.2 23.0- 36.0 [place] [address]-3) unfractionated heparin is61.0-112.0 se conds which corresponds to Anti-Xa0.3-0.7 U/ml. [place] MethodistCT Soft Tissue Neck Wo Avhtlmoc9700-78-69 16:29:03Hm Interface, Radiology Results 07/14/2019 4:32 PM [...] the left hyoid bone, compatible with ectopic thyroid.1WT-[id number] and approved by vice president of sales/fellow: Real Chilel, Dimitri Forte MD, personally reviewed the images and resident's/fellow's findings and agree with the final report.[facility] Wo Tkyfklaa4201-45-26 15:50:42Hm Interface, Radiology Results 07/14/2019 3:53 PM [...] the upper abdomen do not demonstrate any masses.[facility]-[id number] MethodistGram stain 2019-07-14 15:37:25Gram stain isolateFew WBC'sFew Gram positive cocci in clustersMany Gram positive cocci in chains Comment: Specimen InformationSpecimen Source: SputumSpecimen Site: Expectorated [facility] MethodistProthrombin time with PSR6297-19-31 08:05:32 Test Item Value Reference Range Interpretation Comments Prothrombin time 12.7 11.5- 14.5 sec (test code = 5902-2) INR (test code = 1.0 The Interna tional 90662-0) Normalized Rati o (INR) is a therapeutic monitoring tool for patients who ar e stable on oral anticoagulant therapy. An INR of 2.0-3.0 is sugg ested for deep vein thrombosis/pulm onary embolism. TATA (test code = PTT added and TATA) read back to Malissa Reyes in [facility] 07/14/2019 06:59 LMID. [facility] etqyzyc5897-08-75 12:38:37 Test Item Value Reference Range Interpretation Comments POC glucose (test 82 mg/dL 65-99 Hydrographer N deb: Karel code = 53922-5) Kyle ulrich ID: [id number] able: [facility] Notified RN Bhakta MethodistEchocardiogram complete w contrast and 3D if rxgwum9098-39-08 09:14:00Interface, Radiology Results In - 07/13/2019 9:15 AM DRY MOLDER Echocardiography Report [address]Name: SEEMA ROMO Pat.ID: [id number].Date: 07/13/2019 Refer.MD: THOR FENG MDExmarcie Time: 6:18:00 AM Study Type:Routine Echo Height: 57in Weight: 81lb BSA: 1.23 m2 Age: 6 1945,73Y Sex: FEMALE BP: 85/49 HR: 73 bpm Sonogrphr: Mart Meek. Stat.:Inpatient Room: QTYX266-38 Study Status:Final Echo Event ID:[id number] Order ID: [id number] Reason for Study:H/o Pulmonary hypertension, RA pressures, [...] structural TV abnormalities noted. Mild tricuspid regurgitation Welhc: LV relaxation is reduced, appropriate for age. LV filling pressure is normal.Other: Estimated PA systolic pressure is 49 mmHg, assuming a mean RAP of 5 mmHg. MEASUREMENTS: 2DParasternal Long [place] Ao An 2 cm LVPWd 0.74 cm [...] TV Alber 335 cm/s Signed 07/13/2019 09:14 MARCIEMoTracy Martino MethodistThyroid stimulating jrpdare8559-98-35 06:19:46 Test Item Value Reference Range Interpretation Comments TSH (test code = 3016-3) 0.51 0.27- 4.20 uIU/mL [place] MethodistB natriuretic omzmzmg0610-59-06 06:10:03 Test Item Value Reference Range Interpretation Comments BNP (test code = 53427-1) 153 pg/mL 0-100 H Lab Interpretation (test code = Abnormal 15679-4) [place] MethodistComprehensive metabolic cmyeo5027-40-72 06:09:51 Test Item Value Reference Range Interpretation Comments Sodium (test code = 140 135- 148 mEq/L 2951-2) Potassium (test code = 4.5 3.5- 5.0 mEq/L 2823-3) Chloride (test code = 106 98- 112 mEq/L 5-0) CO2 (test code = 2027-9) 24 24- 31 mEq/L Anion gap (test code = 10@ANIO 7- 15 mEq/L 18130-8) BUN (test code = 3094-0) 14 mg/dL 8-23 Creatinine (test code = 0.67 mg/dL 0.5-0.9 2160-0) Glucose (test code = 143 mg/dL 65-99 H 2345-7) Calcium (test code = 8.5 mg/dL 8.8-10.2 L 44454-9) Protein (test code = 6.3 g/dL 6.3-8.3 9994.6-7.0 2885-2) g/dL1 phai0963.4-7.6 g/dL7 months-6cdtk756 .1- 7.3 g/dL1-2 dxesg699.6-7.5 g/dL>3 pnxax967.0-8.0 g/xC90-4454168. 3-8 .3 g/dL Albumin (test code = 3.0 g/dL 3.5-5 L 1751-7) A/G ratio (test code = 0.9 0.7-3.8 1759-0) Alkaline phosphatase 78 U/L 35-104 (test code = 6768-6) AST (test code = 1920-8) 14 U/L 10-35 ALT (test code = 1742-6) 19 U/L 5-50 Total bilirubin (test <0.2 0-1.2 code = 1974-) Lab Interpretation (test Abnormal code = 14956-3) [place] MethodistLactic acid zpyhg3371-59-57 06:05:57 Test Item Value Reference Range Interpretation Comments Lactic acid (test code = 73717-5) 1.0 mmol/L 0.5-2.2 [place] FczoambarCwrtvlzs6855-24-20 22:52:33 Test Item Value Reference Range Interpretation Comments Troponin (test code 0.011 ng/mL 0-0.04 In patie nts suspected = 63892-2) of having a thien cardial infarction, ana mejia with all other appro priate clinical measur es and actions includi ng ECG and other diagn ostics as appropriate, [...] decreased by le ss than 0.020 ng/mL Bhakta MethodistRespiratory pathogen mkacg4352-90-74 22:47:01 Test Item Value Reference Interpretation Comments Range Respiratory Positive for A Specimen pathogen panel Rhinovirus/Enterovirus-- I nformationSpecimen (test code = Neg Simona rce: 2148) ative for all other [facility] Site: pathogens Left tested:Negative for AdenovirusNegative for Coronavirus QRY0Dqopiade for Coronavirus JG60Iuhnjpmd for Coronavirus 229ENegative for Coronavirus WT93Dsydmwoi for Human MetapneumovirusNegative for Influenza ANegative for Influenza A/O8Zpljrcop for Influenza A/A0Uccppzhx for Influenza A/H1-2009Negative for Influenza BNegative for [...] assa Lab Abnormal Interpretation (test code = 31059-3) [place] MethodistArterial blood orb4581-46-21 21:21:02 Test Item Value Reference Range Interpretation Comments pH, arterial (test code = 2744-1) 7.41 7.35-7.45 pCO2, arterial (test code = 38 35- 45 mmHg 2019-01) pO2, arterial (test code = 77 80- 90 mmHg L 2703-7) Bicarbonate, arterial (test code 23.6 mmol/L - = 1960-4) Base excess, arterial (test code 0 -2 - 2 mEq-L = 1925-7) O2 saturation, arterial (test 95 % 95-100 code = 2708-6) Lab Interpretation (test code = Abnormal 48453-6) Yony MethodistUrinalysis screen and microscopy, with reflex to culture 2019-07-12 21:08:53 Test Item Value Reference Range Interpretation Comments Specimen site (test code = Clean catch 3122468) Color, UA (test code = 5778-6) Yellow Appearance, UA (test code = Clear 5767-9) Specific gravity, UA (test code = 1.019 1.001-1.035 5811-5) pH, UA (test code = 5803-2) 6.0 5.0-8.5 Protein, UA (test code = 22506-3) Negative Negative Glucose, UA (test code = 38339-4) Negative Negative Ketones, UA (test code = 2514-8) Negative Negative Bilirubin, UA (test code = Negative Negative 5770-3) Blood, UA (test code = 5794-3) Negative Negative Nitrite, UA (test code = 5802-4) Negative Negative Urobilinogen, UA (test code = <2.0 <2.0 50667-5) Leukocyte esterase, UA (test code Negative Negative = 5799-2) Epithelial cells, UA (test code = 1 /HPF 5787-7) WBC, UA (test code = 5821-4) <1 0- 4 /HPF RBC, UA (test code = 43076-6) <1 0- 5 /HPF Bacteria, UA (test code = Few None seen 84304-8) Yeast, UA (test code = 77900-1) None seen Yeast with pseudohyphae, UA (test None seen code = 42691-3) Hyaline casts, UA (test code = 4 /LPF 5796-8) Yony Palmer kudaywa1377-30-10 18:40:41 Test Item Value Reference Range Interpretation Comments Urine culture (test SEE COMMENT Bacteriu jose screen code = 6553107) negative. Yony Sharif 12 zaon6787-35-13 18:36:47 Test Item Value Reference Range Interpretation [...] available-Electronica lly Signed By Gracie Barragan MD ([id number]) on 07/12/2019 6:36:46 PM [place] MethodistXR Chest 1 Dxwgcvan2254-31-86 16:19:31Hm Interface, Radiology Results Incoming - 07/12/2019 4:22 PM CSTEXAMINATION: XR CHEST 1 PORTABLECLINICAL HISTORY: sobCOMPARISON: CT chest 08/09/2018. Chest radiograph 11/15/2017IMPRESSION:Prominent emphysematous changes are unchanged from the prior radiograph and better seen on prior CT. No focal consolidation or large pleural effusion.Normal cardiomediastinal silhouette.Interval angulated right sixth posterior rib fracture appears to be chronic, correlate with exam..[facility] ED Preliminary Interpretation - Not an Lhcmf5907-65-34 15:12:18 Test Item Value Reference Range Interpretation Comments TATA (test code = TATA) Jordan Craig MD 08/14/2019 9:51 [facility] ED Preliminary Interpretation - Not an OrderPerformed by: Jordan Craig MDAuthorized by: Jordan Craig MD ECG reviewed by ED Physician in the absence of a stonemason: yes Interpretation: Interpretation: abnormal Rate: ECG rate: 111 ECG rate assessment: tachycardic Rhythm: Rhythm: sinus tachycardia QRS: QRS axis: Left QRS intervals: NormalST segments: ST segments: NormalComments: Poor baseline. Lab Interpretation Abnormal (test code = 83695-6) [place] YarsanismBone Yomfzqc6602-68-76 13:23:16Hm Interface, Radiology Results Incoming - 04/19/2019 1:26 PM CDTEXAMINATION: BONE DENSITY, BONE DENSITY PERIPHERALCLINICAL HISTORY: M81.0 Age-related osteoporosis without current pathological fracture, AGE-RELATED OSTEOPOROSIS W O CURRENT PATHOLOGICAL FRACTURECOMPARISON: None.The results of this study expressed as bone mineral density (BMD) were as follows:AP spine (L1-L4)BMD: 0.90 g/ys9R-Zxthk: -2.3Z-Score: 0.4Percent change: No prior exam. %Dual Femur (Total Mean):BMD: 0.67 g/io0T-Qhhwb: -2.7Z-Score: -0.3Percent change: No prior exam. %Forearm (Radius 33%):BMD: 0.47 g/hj5W-Sgjzp: -4.7Z-Score: -4.4 Percent change: No prior exam. [...] the effect of treatments on patient over time.[facility]-[id number] MethodistBone Density Djcovyjoxa5320-43-55 13:23:16Hm Interface, Radiology Results 04/19/2019 1:26 PM CDTEXAMINATION: BONE DENSITY, BONE DE NSITY PERIPHERALCLINICAL HISTORY: M81.0 Age-related osteoporosis without current pathological fracture, AGE-RELATED OSTEOPOROSIS W O CURRENT PATHOLOGICAL FRACTURECOMPARISON: None.The results of this study expressed as bone mineral density (BMD) were as follows:AP spine (L1-L4)BMD: 0.90 g/pq4Y-Syqgr: -2.3Z-Score: 0.4Percent change: No prior exam. %Dual Femur (Total Mean):BMD: 0.67 g/pj7Q-Jyyie: -2.7Z-Score: -0.3Percent change: No prior exam. %Forearm (Radius 33%):BMD: 0.47 g/lo4H-Bssad: -4.7Z-Score: -4.4 Percent change: No prior exam. [...] the effect of treatments on patient over time.[facility]-[id number] MethodistSPUTUM CULTURE + GRAM IWSNF7261-38-70 12:13:00 Test Item Value Reference Range Interpretation [...] 0-5 epithelial (BEAKER) (test code cells = 546153) GRAM STAIN RESULT No organisms seen (BEAKER) (test code = 584760) 4+ Normal respiratory yenni presentVancomycin level, jnojdf4615-48-95 09:25:00 Test Item Value Reference Range Interpretation Comments Vancomycin Tr (test code 11.9 ug/mL 10-20 = 4092-3) TATA (test code = TATA) Please draw 30 min prior to scheduled dose.If vancomycin trough level > 20 mcg/mL, hold next vancomycin dose, and contact MD and pharmacist. Lab Interpretation (test Normal code = 15896-8) [facility] Center[facility]AN[facility] LEV[facility], [id number] 09:25:00 Test Item Value Reference Range Interpretation Comments VANCOMYCIN TROUGH (BEAKER) (test 11.9 ug/mL 10.0-20.0 code = 522) Please draw 30 min prior to scheduled dose.If vancomycin trough level > 20 mcg/mL, hold next vancomycin dose, and contact MD and pharmacist.CBC with platelet count + automated [id number] 06:38:00 Test Item Value Reference Range Interpretation Comments WBC (test code = 6690-2) 12.8 3.5- 10.5 K/L H RBC (test code = 789-8) 3.65 3.93- 5.22 M/L L MCHC (test code = 786-4) 32.4 32.2- 35.5 GM/DL L Hematocrit (test code = 4544-3) 34.0 % 34.1-44.9 L MCV (test code = 787-2) 93.2 fL 79.4-94.8 MCH (test code = 785-6) 30.1 pg 25.6-32.2 RDW (test code = 788-0) 14.2 % 11.7-14.4 Platelets (test code = 777-3) 253 150- 450 K/CU MM MPV (test code = 25142-3) 9.6 fL 9.4-12.3 nRBC (test code = 413) 0 0- 0 /100 WBC % Neutros (test code = 429) 68 % % Lymphs (test code = 430) 21 % % Monos (test code = 431) 10 % % Eos (test code = 432) 0 % % Baso (test code = 437) 0 % # Neutros (test code = 670) 8.68 1.56- 6.13 K/L H # Lymphs (test code = 414) 2.66 1.18- 3.74 K/L # Monos (test code = 415) 1.33 0.24- 0.36 K/L H # Eos (test code = 416) 0.04 0.04- 0.36 K/L # Baso (test code = 417) 0.01 0.01- 0.08 K/L Immature Granulocytes-Relative 1 % 0-1 (test code = 2801) Lab Interpretation (test code = Abnormal 13210-7) [facility] W/PLT COUNT & AUTO [id number] 06:38:00 Test Item Value Reference Range Interpretation [...] 0-1 PERCENT (BEAKER) (test code = 2801) Basic Metabolic [id number] 05:44:00 Test Item Value Reference Range Interpretation Comments Sodium (test code = 139 meq/L 595-394 4935-2) Potassium (test code 3.8 meq/L 3.5-5.1 = 2823-3) Chloride (test code = 107 meq/L 98-107 2075-0) CO2 (test code = 28 meq/L 22-29 2028-9) BUN (test code = 14 mg/dL 7- 3094-0) Creatinine (test code 0.65 mg/dL 0.57-1.25 = 2160-0) Glucose (test code = 97 mg/dL 70-105 2345-7) Calcium (test code = 8.5 mg/dL 8.4-10.2 25786-8) EGFR (test code = 89 mL/min/1.73 [place] [address]-2) ACCURATE CREATININE FRANCISCO PATIENCE IN PREDICTING GLOMERULAR FILT RATION RATE. ESTIMATED GFR IS NOT APPLICAB LE FOR DIALYSIS TAYLOR MENDOZA [facility] METABOLIC [id number] 05:44:00 Test Item Value Reference Range Interpretation [...] APPLICABLE FOR DIALYSIS PATIEN TS. BASIC METABOLIC [id number] 05:45:00 Test Item Value Reference Range Interpretation [...] PATIEN TS. CBC W/PLT COUNT & AUTO [id number] 05:39:00 Test Item Value Reference Range Interpretation [...] 0-1 PERCENT (BEAKER) (test code = 2801) Respiratory Panel [id number] 20:29:00 Test Item Value Reference Range Interpretation Comments Human Metapneumovirus Not detected Not detected, (test code = 13585-6) Equivocal Rhinovirus (test code = Not detected Not detected, 58832-9) Equivocal INFLUENZA A (NO Not detected Not detected, SUBTYPE) (test code = Equivocal 10871-8) Influenza A subtype H1 (test code = 40856-1) Influenza A Subtype H3 (test code = 12066-0) Influenza A Subtype H1-2009 (test code = 83618-8) Influenza B (test code Not detected Not detected, = 74376-7) Equivocal Respiratory Syncytial Not detected Not detected, Virus (test code = Equivocal 99261-5) Parainfluenza Virus 1 Not detected Not detected, (test code = 97559-7) Equivocal Parainfluenza Virus 2 Not detected Not detected, (test code = 10989-4) Equivocal Parainfluenza virus 3 Not detected Not detected, (test code = 02122-2) Equivocal Parainfluenza Virus 4 Not detected Not detected, (test code = 19534-8) Equivocal Adenovirus (test code = Not detected Not detected, 12856-6) Equivocal Coronavirus 229E (test Not detected Not detected, code = 87206-8) Equivocal Coronavirus HKU1 (test Not detected Not detected, code = 30340-2) Equivocal Coronavirus NL63 (test Not detected Not detected, code = 55676-9) Equivocal Coronavirus OC43 (test Not detected Not detected, code = 19510-7) Equivocal Bordetella Pertussis Not detected Not detected, (test code = 92112-6) Equivocal Chlamydophila Not detected Not detected, Pneumoniae (test code = Equivocal 42528-9) Mycoplasma Pneumoniae Not detected Not detected, (test code = 07786-7) Equivocal TATA (test code = TATA) Other viruses and bacteria not targeted by this PCR panel cannot be excluded; therefore clinical correlation and follow up of serology, culture results, and other molecular studies is required. The results are not intended to be used as the sole means for clinical diagnosis or patient management decisions. This sample was tested at the [facility] using the ForticomArray Respiratory Panel. It is FDA cleared and has been verified and approved by the [facility] for clinical use on nasopharyngeal swab specimens. The performance of the FilmArray RP has not been established in individuals who received influenza vaccine. Recent administration of a nasal influenza vaccine may cause false positive results for Influenza A and/orInfluenza B. [facility] [id number] 20:29:00 Test Item Value Reference Range Interpretation [...] decisions. This sample was tested at the [facility] using the ForticomArray Respiratory Panel. It is FDA cleared and has been verified and approved by the [facility] for clinical use on nasopharyngeal swab specimens.The performance of the FilmArrayRP has not been established in individuals who received influenza vaccine. Recent administration ofa nasal influenza vaccine may cause false positive results for Influenza A and/orInfluenza B.VANCOMYCIN LEVEL, [id number] 10:07:00 Test Item Value Reference Range Interpretation Comments VANCOMYCIN TROUGH (BEAKER) (test 10.0 ug/mL 10.0-20.0 code = 522) Please draw 30 min prior to scheduled dose.If vancomycin trough level > 20 mcg/mL, hold next vancomycin dose, and contact MD and pharmacist.BASIC METABOLIC [id number] 07:57:00 Test Item Value Reference Range Interpretation [...] PATIEN TS. CBC W/PLT COUNT & AUTO [id number] 07:43:00 Test Item Value Reference Range Interpretation [...] 0-1 PERCENT (BEAKER) (test code = 2801) Manual [id number] 10:21:00 Test Item Value Reference Range Interpretation Comments % Neutros (test code = 92 % 2815) % Lymphs (test code = 3 % 7) % Monos (test code = 2818) 3 % % Bands (test code = 2826) 2 % 0-10 # Neutros (test code = 30.36 K/ul 1.56-6.13 H 2830) # Lymphs (test code = 0.99 K/ul 1.18-3.74 L 2831) # Monos (test code = 2832) 0.99 K/uL 0.24-0.36 H # Bands (test code = 2840) 0.66 K/uL 0-0.8 Total Counted (test code = 100 1351) RBC Morphology (test code Normal = 762) WBC Morphology (test code Normal = 487) Platelet Morphology (test Normal code = 486) Artifact (test code = Present 3432) Platelet Conc (test code = Adequate 3438) TATA (test code = TATA) Received comment: User comments: Slide comments: Lab Interpretation (test Abnormal code = 97908-4) [facility] W/PLT COUNT & AUTO [id number] 10:21:00 Test Item Value Reference Range Interpretation [...] = 3438) Received comment: User comments: Slide comments:Legionella antigen, urine 2019-03-20 09:40:00 Test Item Value Reference Range Interpretation Comments Legionella Urine Negative - see Negative for L. Antigen (test code comment pneumophi la = 21570-7) serogroup 1 ant igen, suggesting no r ecent or current infe ction with this serog roup. Legionellosis c annot be ruled out si nce other serogroup s and species may cau se disease. [facility] [id number] 09:40:00 Test Item Value Reference Range Interpretation Comments Strep pneumoniae Presumptive negative Presumptive Antigen (test code = [place] [address]-5) pneumonia - see pneumococcal comment pneumonia - see comment, Presumptive negative for pneumococcal meningitis TATA (test code = TATA) Presumptive negative for pneumococcal pneumonia, suggesting no current or recent pneumococcal infection. Infection due to S. pneumoniae cannot be ruled out since the antigen present in the sample may be below the detection limit of the test. Lab Interpretation Normal (test code = 66776-3) [facility] [id number] 09:40:00 Test Item Value Reference Range Interpretation [...] detection limit of the test. LEGIONELLA ANTIGEN, [id number] 09:40:00 Test Item Value Reference Range Interpretation Comments L. PNEUMOPHILA Negative - see Negative fo r L. SEROGP 1 UR AG comment pneumophila (BEAKER) (test code serogrou p 1 antigen, = 1156) suggesting no r ecent or current infe ction with this serog roup. Legionellosis c annot be ruled out si nce other serogroup s and species may cau se disease. [id number] 08:58:00 Test Item Value Reference Range Interpretation Comments Creatinine (test code 0.78 mg/dL 0.57-1.25 = 2160-0) EGFR (test code = 72 mL/min/1.73 sq [place] [address]61-7) ACCURATE CREATININE FRANCISCO MORIN IN PREDICTING GLOMERULAR FILT RATION RATE. ESTIMATED GFR IS NOT APPLICAB LE FOR DIALYSIS PATIEN TS. [facility] [id number] 08:58:00 Test Item Value Reference Range Interpretation [...] S NOT APPLICABLE FOR DIALYSIS PATIEN TS. [id number] 08:58:00 Test Item Value Reference Range Interpretation Comments CREATININE (BEAKER) 0.78 mg/dL 0.57-1.25 (test code = 358) EGFR (BEAKER) (test 72 mL/min/1.73 ESTIMA JOANNA GFR IS code = 1092) sq m NOT ACCURATE CREATININE CLEARANCE IN PREDICTING GLOMERULAR FILTRATION RATE . ESTIMATED GFR I S NOT APPLICABLE FOR DIALYSIS PATIEN TS. BASIC METABOLIC [id number] 07:10:00 Test Item Value Reference Range Interpretation [...] NOT APPLICABLE FOR DIALYSIS PATIEN TS. PROTHROMBIN [id number] 07:01:00 Test Item Value Reference Range Interpretation [...]
[2020-02-02 13:04] LABS: ALT/SGPT 25 U/L (12-78); AST/SGOT 23 U/L (15-37); Albumin 3.4 g/dL (3.4-5.0); Alkaline Phosphatase 73 U/L (45-117); BUN Blood Urea Nitrogen 11 mg/dL (7-18); Bicarbonate 24 mmol/L (21-32); Bilirubin Direct 0.1 mg/dL (0-0.2); Bilirubin Total 0.5 mg/dL (0.2-1.0); Glucose Level 112 mg/dL (74-106); Magnesium 1.9 mg/dL (1.8-2.4); NT PRO-BNP 1585 pg/mL (<450); Potassium 3.6 mmol/L (3.5-5.1); Protein, Total 6.9 g/dL (6.4-8.2); Sodium Level 138 mmol/L (136-145); Troponin (Emerg Dept Use Only) < 0.02 ng/mL (0.0-0.045)
--- OUTSIDE RECORDS SUMMARY | 2020-02-02 13:04 | XMS REPORT ---
[...] hypoxia or hypercapnia Problem Panic disorder [episodic F41.0 Act gallo paroxysmal anxiety] Problem Failure to thrive in adult R62.7 A ctive Assessment Abscess of left upper extremity L02.414 Active Assessment Encounter for incision and Z76.89 A ctive drainage procedure Assessment Wasp sting, accidental or T63.461A Ac tive unintentional, initial encounter Problem Shingles B02.9 Active Problem Age-related osteoporosis without M81.0 Active current pathological fracture Problem Depression with anxiety F41.8 Acti ve Problem Seasonal allergies J30.2 Active Problem Fatty liver K76.0 Active Problem 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 Medications Medication Code Code Instructions Start End Status Dosage System Date Date Tumersaid [facility] 17182326036 - Orally Active as direct ed Tadalafil ND 12593626545 2.5 MG Orally Active 1 ta blet ( Once a day 2 MG) Prolia [facility] 82214895078 60 MG/ML Active as directed Subcutaneous Montelukast ND 18803286443 10 MG once a Active TA KE 1 Sodium day TABLET BY MOUTH ONCE A DAY IN THE EVENING Nasonex ND 04703277941 50 MCG/ACT Active 2 sprays in Nasally Once a each day nostril Dulera ND 24802729180 100-5 MCG/ACT Active 2 puff s Inhalation Twice a day Xanax [facility] 96576771812 0.5 MG Orally Active 1 tabl et TID PRN severe anxiety Amoxicillin-Pot ND 10269090548 875-125 MG January 09December Active 1 tablet Clavulanate Orally every 2019 24, hrs 2019 Vitamin D [facility] 67529104383 2000 UNIT Active 1 tablet Orally Once a day Ambrisentan [facility] 17925281694 10 MG Orally Active 1 t ablet Once a day ProAir HFA [facility] 66307560833 108 (90 Base) Active 2 p uffs as MCG/ACT needed Inhalation every 6 hrs Acyclovir [facility] 22451462290 200 MG Orally Active 1 ca psule Twice a day Proventil HFA [facility] 70496440573 108 (90 Base) Active 1 puff as MCG/ACT needed Inhalation every 4 hrs Citalopram [facility] 44427842242 40 MG Orally Active 1 ta blet Hydrobromide Once a day Glucosamine [facility] 77093209150 500 MG Orally Active 1 capsule Three times a with a yris l day Questran [facility] 04606121490 4 GM Orally Active 1 packe t Twice a day mixed with water or non-carbona joanna drink Trelegy Ellipta [facility] 24127739576 100-62.5-25 Active 1 puff MCG/INH Inhalation Once a day Mucinex Maximum [facility] 01344152744 1200 MG Orally Activ e 1 tablet as Strength every 12 hrs needed Albuterol [facility] 44117939405 (2.5 MG/3ML) Active 3 ml as Sulfate 0.083% needed Inhalation Three times a day Letairis [facility] 70522604818 10 MG Orally Active 1 tabl et Once a day Claritin [facility] 66742158170 10 MG Orally Active 1 tabl et Once a day [place] 3 [facility] [address]-49877 MG Active 1 ca psule Orally Once a day Results No Known Results Summary Purpose eClinicalWorks Submission
[2020-02-02] MEDS ORDERED: ACETAMINOPHEN 325 MG TABLET ONE (13:15)
[2020-02-02 13:19] LABS: Blood Morphology Comment NOT SEEN (NOT SEEN); Platelet Estimate ADEQ
--- NOTE | 2020-02-02 14:29 | RAD REPORT ---
EXAM DESCRIPTION: CT - Chest For Pe Angio - 02/02/2020 2:06 pm CLINICAL HISTORY: Chest pain. shortness of breath, fever COMPARISON: Thorax Wo Con dated 03/19/2019 TECHNIQUE: CT angiogram of the pulmonary arteries was performed with MIP. All CT scans are performed using dose optimization technique as appropriate and may include automated exposure control or mA/KV adjustment according to patient size. FINDINGS: No evidence of pulmonary thromboembolism. No acute aortic finding demonstrated. Diffuse severe emphysema is present. Interstitial lung markings are mildly prominent bilaterally. No significant pericardial or pleural fluid. No concerning bony finding. IMPRESSION: No evidence of pulmonary thromboembolism. Advanced diffuse COPD.
--- NOTE | 2020-02-02 15:25 | EDPHYS ---
Physician Documentation [facility] Name: Seema Romo Age: 74 yrs Sex: Female : 1945 Arrival Date: 02/02/2020 Time: 11:19 Bed 14 Private MD: ED Physician Rudy Ramírez HPI: 02/01 11:31 This 74 yrs old Female presents to ER via Wheelchair with complaints of jmm Fever, Breathing Difficulty. 11:31 Onset: The symptoms/episode began/occurred gradually, 1 week(s) ago. Modifying factors: jmm there are no obvious modifying factors. Associated signs and symptoms: Pertinent positives: chills, cough, Pertinent negatives: abdominal pain, altered mental status, arthralgias, backache, chest pain. The patient has experienced similar episodes in the past, with diagnosis of pneumonia. Historical: - Allergies: 11:36 Bactrim; hb 11:36 Sulfa (Sulfonamide Antibiotics); hb - Home Meds: 11:38 acyclovir 200 mg Oral cap daily [Active]; albuterol sulfate 2.5 mg /3 mL (0.083 %) Inhl hb nebu 3 mL 4 times per day [Active]; citalopram 40 mg tab 1 tab once daily [Active]; Glucosamine 500 mg Oral tab daily [Active]; Letairis 5 mg Oral tab 1 tab once daily [Active]; montelukast 10 mg Oral tab 1 tab once daily [Active]; Mucinex 1,200 mg Oral Ta12 daily [Active]; Parsons-3 350 mg-235 mg- 90 mg-597 mg Oral cpDR daily [Active]; ProAir HFA 90 mcg/actuation inhalation HFAA 2 puffs every 4 hours [Active]; Prolia 60 mg/mL subcutaneous syrg 1 mL every 6 mo [Active]; singular 10mg 1 tab daily, Flovent 220mcg inh 1 puff BID, Proair 90mcg inh 2 puff QID prn, Celexa 40mg daily, Spiriva 2.5mcg daily , Acyclovir 200mg 1 tab BID, [Active]; turmeric root extract Oral daily [Active]; Vitamin D Oral 2000 unit daily [Active]; Xanax 0.5 mg Oral tab as needed [Active]; Symbicort 160-4.5 mcg/actuation inhalation HFAA 2 puffs 2 times per day [Active]; Spiriva Respimat 2.5 mcg/actuation inhalation mist 2 puffs once daily [Active]; - PMHx: 11:38 Anxiety; COPD; degenerative joint disease; Depression; fatty liver; Mycobacterium Avium hb Complex; neuropathy; Osteoporosis; shingles; - Immunization history:: Adult Immunizations up to date. - Social history:: Smoking status: Patient denies any tobacco usage or history of. ROS: 11:31 Constitutional: Positive for body aches, fever. jmm 11:31 Respiratory: Positive for cough, shortness of breath. 11:31 All other systems are negative. Exam: 11:31 Constitutional: This is a well developed, well nourished patient who is awake, alert, jmm and in no acute distress. Head/Face: atraumatic. Eyes: EOMI, no conjunctival erythema appreciated ENT: Moist Mucus Membranes Neck: Trachea midline, Supple Chest/axilla: Normal chest wall appearance and motion. Cardiovascular: Regular rate and rhythm. No edema appreciated 11:31 Abdomen/GI: Non distended, soft Back: Normal ROM Skin: General appearance color normal MS/ Extremity: Moves all extremities, no obvious deformities appreciated, no edema noted to the lower extremities Neuro: Awake and alert, normal gait Psych: Behavior is normal, Mood is normal, Patient is cooperative and pleasant 11:31 Respiratory: the patient does not display signs of respiratory distress, Respirations: normal, Breath sounds: wheezing: that is mild, is heard in the left posterior upper lobe. 17:36 ECG was reviewed by the Attending Physician. [facility] Vital Signs: 11:33 BP 116 / 60; Pulse 114; Resp 28; Temp 99(TE); Pulse Ox 98% on 4 lpm NC; Weight 37.65 hb kg; Height 4 ft. 9 in. (144.78 cm); Pain 5/10; 12:30 BP 90 / 54; Pulse 101; Resp 22; Pulse Ox 97% on 4 lpm NC; tw2 13:30 BP 97 / 50; Pulse 95; Resp 20; Pulse Ox 100% on 4 lpm NC; tw2 14:30 BP 89 / 59; Pulse 95; Resp 22; Pulse Ox 98% on 4 lpm NC; tw2 15:00 Resp 28; Pulse Ox 86% 4 lpm ; tw2 16:24 BP 93 / 53; Pulse 85; Resp 22; Pulse Ox 100% on 4 lpm NC; tw2 17:30 BP 82 / 68; Pulse 95; Resp 20; Pulse Ox 100% on 4 lpm NC; tw2 18:22 BP 93 / 50; Pulse 84; Resp 17; Temp 98.2(O); Pulse Ox 100% on 4 lpm NC; tw2 19:30 BP 102 / 53; Pulse 85; Resp 22; Pulse Ox 97% on 4 lpm NC; lp1 11:33 Body Mass Index 17.96 (37.65 kg, 144.78 cm) hb 15:00 pt winded when trying to use bedside commode at this time. provider notified. tw2 MDM: 11:31 Patient medically screened. [facility] 15:23 Data reviewed: vital signs, nurses notes. Counseling: I had a detailed discussion with brian the patient and/or guardian regarding: the historical points, exam findings, and any diagnostic results supporting the discharge/admit diagnosis, lab results, radiology results, the need for further work-up and treatment in the hospital. ED course: Patient 02 went to 86% on 3 l NC on ambulation. I discussed the patient with Donato Polanco whom accepted the patient to Dr. Alatorre service. . 02/01 11:41 Order name: Basic Metabolic Panel [facility] 02/01 11:41 Order name: CBC with Diff [facility] 02/01 11:41 Order name: LFT's [facility] 02/01 11:41 Order name: Magnesium [facility] 02/01 11:41 Order name: NT PRO-BNP [facility] 02/01 11:41 Order name: PT-INR [facility] 02/01 11:41 Order name: Troponin (emerg Dept Use Only) [facility] 02/01 11:41 Order name: Procalcitonin [facility] 02/01 11:41 Order name: Lactate [facility] 02/01 11:41 Order name: Blood Culture Adult (2) [facility] 02/01 11:41 Order name: COVID-19 [facility] 02/01 11:41 Order name: Flu [facility] 02/01 12:49 Order name: Protime (+INR); Complete Time: 13:04 [facility] 02/01 12:54 Order name: CBC with Automated Diff; Complete Time: 13:28 [facility] 02/01 11:41 Order name: XRAY Chest (1 view) [facility] 02/01 12:23 Order name: RAD; Complete Time: 13:04 [facility] 02/01 12:55 Order name: Lactate; Complete Time: 13:04 [facility] 02/01 13:06 Order name: Basic Metabolic Panel; Complete Time: 13:28 [facility] 08 13:06 Order name: Liver (Hepatic) Function; Complete Time: 13:28 [facility] 02/01 13:06 Order name: Troponin (Emerg Dept Use Only); Complete Time: 13:28 [facility] 02/01 13:06 Order name: NT PRO-BNP; Complete Time: 13:28 [facility] 02/01 13:06 Order name: Magnesium; Complete Time: 13:28 [facility] 02/01 13:16 Order name: Procalcitonin; Complete Time: 13:28 [facility] 02/01 13:20 Order name: Manual Differential; Complete Time: 13:28 [facility] 02/01 13:29 Order name: CT Chest For PE Angio [facility] 02/01 14:30 Order name: CT; Complete Time: 14:35 [facility] 02/01 15:06 Order name: Influenza Screen (A ; Complete Time: 15:15 [facility] 02/01 16:02 Order name: Urine Dipstick--Ancillary (enter results) 02/01 16:40 Order name: Urine Dipstick-Ancillary; Complete Time: 17:42 [facility] 02/01 16:50 Order name: CORONAVIRUS; Complete Time: 17:42 [facility] 02/01 11:41 Order name: EKG; Complete Time: 11:43 [facility] 02/01 11:41 Order name: Cardiac monitoring; Complete Time: 13:37 [facility] 02/01 11:41 Order name: EKG - Nurse/Tech; Complete Time: 13:37 [facility] 02/01 11:41 Order name: IV Saline Lock; Complete Time: 13:37 [facility] 02/01 11:41 Order name: Labs collected and sent; Complete Time: 13:38 [facility] 02/01 11:41 Order name: O2 Per Protocol; Complete Time: 13:38 [facility] 02/01 11:41 Order name: O2 Sat Monitoring; Complete Time: 13:38 [facility] 02/01 11:41 Order name: Urine Dipstick-Ancillary (obtain specimen); Complete Time: 22:21 [facility] 02/01 16:09 Order name: Diet Ada 1800 [place]; Complete Time: 16:10 tw2 EC:36 QRS [place] is Normal. [place] interval is normal. QRS interval is normal. QT interval is jm normal. No Q waves. T waves are Normal. No ST changes noted. Reviewed by me. Administered Medications: 12:30 Drug: Xopenex (3) 1.25 mg Route: Inhalation; tw2 13:20 Drug: Tylenol 650 mg Route: PO; tw2 18:51 Follow up: Response: No adverse reaction tw2 16:15 Drug: NS 0.9% 500 ml Route: IV; Rate: bolus; Site: left forearm; tw2 17:10 Follow up: Response: No adverse reaction; IV Status: Completed infusion; IV Intake: tw2 500ml 16:15 Drug: SOLU-Medrol 125 mg Route: IVP; Site: left forearm; tw2 18:51 Follow up: Response: No adverse reaction tw2 Disposition: 02/02 07:42 Co-signature as Attending Physician, Rduy Ramírez MD I agree with the assessment and kdr plan of care. Disposition: 02/02/20 15:28 Hospitalization ordered by Prince Krzysztof for Inpatient Admission. Preliminary diagnosis are Chronic obstructive pulmonary disease with (acute) exacerbation, Hypoxia. - Bed requested for Telemetry/MedSurg (Inpatient). - Status is Inpatient Admission. lp1 - Condition is Stable. - Problem is an acute exacerbation. - Symptoms are unchanged. Signatures: Dispatcher [employer] EDMS Rudy Ramírez MD MD kdr Mickail, Joel, PA PA [facility] Gita Hernández, RN RN lp1 Donato Polanco, LUMBER SALES SUPERVISOR-C LUMBER SALES SUPERVISOR-Cla1 Deysi Martinez, RN RN Magdalena Norris RN RN Carolin Hsu RN RN tw2 Corrections: (The following items were deleted from the chart) 02/01 14:39 14:37 Urine Dipstick-Ancillary ordered. [facility] tw2 15:26 15:24 02/02/2020 15:24 Discharged to Home. Impression: Lower abdominal pain, [facility] unspecified. Condition is Stable. Forms are Medication Reconciliation Form, Thank You Letter, Antibiotic Education, Prescription Opioid Use. Follow up: Frank Sanchez; When: 2 - 3 days; Reason: Recheck today's complaints, Continuance of care, Re-evaluation by your physician. [facility] 18:56 15:28 Hospitalization Ordered by Prince Krzysztof MEADOWS for Inpatient Admission. Preliminary cg diagnosis is Chronic obstructive pulmonary disease with (acute) exacerbation; Hypoxia. Bed requested for Telemetry/MedSurg (Inpatient). Status is Inpatient Admission. Condition is Stable. Problem is an acute exacerbation. Symptoms are unchanged. [facility] 02/02 02:44 02/01 18:56 02/02/2020 15:28 Hospitalization Ordered by Prince Krzysztof MEADOWS for Inpatient cg Admission. Preliminary diagnosis is Chronic obstructive pulmonary disease with (acute) exacerbation; Hypoxia. Bed requested for [facility] ER HOLD. Status is Inpatient Admission. Condition is Stable. Problem is an acute exacerbation. Symptoms are unchanged. 02/02 04:09 02:44 02/02/2020 15:28 Hospitalization Ordered by Prince Krzysztof MEADOWS for Inpatient lp1 Admission. Preliminary diagnosis is Chronic obstructive pulmonary disease with (acute) exacerbation; Hypoxia. Bed requested for Telemetry/MedSurg (Inpatient). Status is Inpatient Admission. Condition is Stable. Problem is an acute exacerbation. Symptoms are unchanged.
--- NOTE | 2020-02-02 15:25 | ER ---
Nurse's Notes [facility] Name: Seema Romo Age: 74 yrs Sex: Female : 1945 Arrival Date: 02/02/2020 Time: 11:19 Bed 14 Private MD: Diagnosis: Chronic obstructive pulmonary disease with (acute) exacerbation;Hypoxia Presentation: 02/01 11:33 Chief complaint: SOB, headache, chills, subjective fever, and cough x 2 days. On home hb O2 4LNC . Coronavirus screen: chills, cough unrelated to allergies, difficulty breathing, headache, shaking with chills, shortness of breath, Client presents with at least one sign or symptom that may indicate coronavirus-19. Standard/surgical mask placed on the client. Provider contacted for isolation considerations. Ebola Screen: No symptoms or risks identified at this time. Initial Sepsis Screen: Does the patient meet any 2 criteria? RR > 20 per min. HR > 90 bpm. Yes Does the patient have a suspected source of infection? No. Patient's initial sepsis screen is negative. Risk Assessment: Do you want to hurt yourself or someone else? Patient reports no desire to harm self or others. Onset of symptoms was February 01, 2020. 11:33 Method Of Arrival: Wheelchair hb 11:33 Acuity: VADIM 2 hb Historical: - Allergies: 11:36 Bactrim; hb 11:36 Sulfa (Sulfonamide Antibiotics); hb - Home Meds: 11:38 acyclovir 200 mg Oral cap daily [Active]; albuterol sulfate 2.5 mg /3 mL (0.083 %) Inhl hb nebu 3 mL 4 times per day [Active]; citalopram 40 mg tab 1 tab once daily [Active]; Glucosamine 500 mg Oral tab daily [Active]; Letairis 5 mg Oral tab 1 tab once daily [Active]; montelukast 10 mg Oral tab 1 tab once daily [Active]; Mucinex 1,200 mg Oral Ta12 daily [Active]; Dexter-3 350 mg-235 mg- 90 mg-597 mg Oral cpDR daily [Active]; ProAir HFA 90 mcg/actuation inhalation HFAA 2 puffs every 4 hours [Active]; Prolia 60 mg/mL subcutaneous syrg 1 mL every 6 mo [Active]; singular 10mg 1 tab daily, Flovent 220mcg inh 1 puff BID, Proair 90mcg inh 2 puff QID prn, Celexa 40mg daily, Spiriva 2.5mcg daily , Acyclovir 200mg 1 tab BID, [Active]; turmeric root extract Oral daily [Active]; Vitamin D Oral 2000 unit daily [Active]; Xanax 0.5 mg Oral tab as needed [Active]; Symbicort 160-4.5 mcg/actuation inhalation HFAA 2 puffs 2 times per day [Active]; Spiriva Respimat 2.5 mcg/actuation inhalation mist 2 puffs once daily [Active]; - PMHx: 11:38 Anxiety; COPD; degenerative joint disease; Depression; fatty liver; Mycobacterium Avium hb Complex; neuropathy; Osteoporosis; shingles; - Immunization history:: Adult Immunizations up to date. - Social history:: Smoking status: Patient denies any tobacco usage or history of. Screenin:37 Abuse screen: Denies threats or abuse. Nutritional screening: No deficits noted. tw2 Tuberculosis screening: No symptoms or risk factors identified. Fall Risk None identified. Assessment: 11:30 General: Appears in no apparent distress. slender, well groomed, Behavior is tw2 cooperative, appropriate for age. Pain: Denies pain. Neuro: Level of Consciousness is awake, alert, obeys commands, Oriented to person, place, time, situation. Cardiovascular: Heart tones S1 S2 Capillary refill < 3 seconds Patient's skin is warm and dry. Rhythm is sinus tachycardia. Respiratory: Reports shortness of breath at rest on exertion "i normally use 3L nc at home, but sometimes I have to up it when i need it" cough that is Airway is patent Respiratory effort is even, unlabored, Respiratory pattern is regular, symmetrical, Breath sounds are clear Breath sounds are diminished. GI: Abdomen is flat, Bowel sounds present X 4 quads. : No signs and/or symptoms were reported regarding the genitourinary system. EENT: No signs and/or symptoms were reported regarding the EENT system. Derm: No signs and/or symptoms reported regarding the dermatologic system. Musculoskeletal: Range of motion: intact in all extremities. 12:30 Reassessment: Patient appears in no apparent distress at this time. No changes from tw2 previously documented assessment. Patient and/or family updated on plan of care and expected duration. Pain level reassessed. pt short of breath just when talking and answering questions. 13:34 Reassessment: Patient appears in no apparent distress at this time. No changes from tw2 previously documented assessment. Patient and/or family updated on plan of care and expected duration. Pain level reassessed. Patient is alert, oriented x 3, equal unlabored respirations, skin warm/dry/pink. 14:30 Reassessment: No changes from previously documented assessment. Patient and/or family tw2 updated on plan of care and expected duration. Pain level reassessed. 15:30 Reassessment: No changes from previously documented assessment. Patient and/or family tw2 updated on plan of care and expected duration. Pain level reassessed. 16:26 Reassessment: Patient appears in no apparent distress at this time. No changes from tw2 previously documented assessment. Patient and/or family updated on plan of care and expected duration. Pain level reassessed. pt states "i was able to cough up some junk, it was a little off white colored phlegm, course i never cough up anything clear". 17:30 Reassessment: Patient appears in no apparent distress at this time. No changes from tw2 previously documented assessment. Patient and/or family updated on plan of care and expected duration. Pain level reassessed. Patient is alert, oriented x 3, equal unlabored respirations, skin warm/dry/pink. 18:23 Reassessment: Patient appears in no apparent distress at this time. No changes from tw2 previously documented assessment. Patient and/or family updated on plan of care and expected duration. Pain level reassessed. Patient is alert, oriented x 3, equal unlabored respirations, skin warm/dry/pink. 19:30 Reassessment: Patient appears in no apparent distress at this time. Neuro: Level of lp1 Consciousness is awake, alert, obeys commands. Respiratory: Reports shortness of breath cough that is Respiratory effort is even, Respiratory pattern is regular, Breath sounds are diminished bilaterally. Derm: Skin is intact, Skin is dry, Skin is normal. Vital Signs: 11:33 BP 116 / 60; Pulse 114; Resp 28; Temp 99(TE); Pulse Ox 98% on 4 lpm NC; Weight 37.65 hb kg; Height 4 ft. 9 in. (144.78 cm); Pain 5/10; 12:30 BP 90 / 54; Pulse 101; Resp 22; Pulse Ox 97% on 4 lpm NC; tw2 13:30 BP 97 / 50; Pulse 95; Resp 20; Pulse Ox 100% on 4 lpm NC; tw2 14:30 BP 89 / 59; Pulse 95; Resp 22; Pulse Ox 98% on 4 lpm NC; tw2 15:00 Resp 28; Pulse Ox 86% 4 lpm ; tw2 16:24 BP 93 / 53; Pulse 85; Resp 22; Pulse Ox 100% on 4 lpm NC; tw2 17:30 BP 82 / 68; Pulse 95; Resp 20; Pulse Ox 100% on 4 lpm NC; tw2 18:22 BP 93 / 50; Pulse 84; Resp 17; Temp 98.2(O); Pulse Ox 100% on 4 lpm NC; tw2 19:30 BP 102 / 53; Pulse 85; Resp 22; Pulse Ox 97% on 4 lpm NC; lp1 11:33 Body Mass Index 17.96 (37.65 kg, 144.78 cm) hb 15:00 pt winded when trying to use bedside commode at this time. provider notified. tw2 ED Course: 11:19 Patient arrived in ED. fj1 11:25 Placed in gown. Bed in low position. Side rails up X2. field service engineer on. Pulse ox on. tw2 NIBP on. Warm blanket given. 11:26 Mervin Perez PA is PHCP. jmm 11:26 Rudy Ramírez MD is Attending Physician. jmm 11:35 Triage completed. hb 11:36 Arm band placed on. hb 11:41 Carolin Hsu RN is Primary Nurse. tw2 12:20 Missed attempt(s): 22 gauge in right antecubital area. blood collected but swelling tw2 noted,. Bleeding controlled, band aid applied, catheter tip intact. 13:20 Inserted saline lock: 22 gauge in left forearm, using aseptic technique. tw2 15:24 Frank Sanchez MD is Referral Physician. jmm 15:27 Prince Blankenship MD is Hospitalizing Provider. jmm 16:31 [place] in outside lab notified pt being admitted, COVID swab needs to be sent to [facility]. hb 19:00 Report given to JOLEEN Pelayo. tw2 20:34 No provider procedures requiring assistance completed. Patient admitted, IV remains in lp1 place. Administered Medications: 12:30 Drug: Xopenex (3) 1.25 mg Route: Inhalation; tw2 13:20 Drug: Tylenol 650 mg Route: PO; tw2 18:51 Follow up: Response: No adverse reaction tw2 16:15 Drug: NS 0.9% 500 ml Route: IV; Rate: bolus; Site: left forearm; tw2 17:10 Follow up: Response: No adverse reaction; IV Status: Completed infusion; IV Intake: tw2 500ml 16:15 Drug: SOLU-Medrol 125 mg Route: IVP; Site: left forearm; tw2 18:51 Follow up: Response: No adverse reaction tw2 Intake: 17:10 IV: 500ml; Total: 500ml. tw2 Outcome: 15:24 Discharge ordered by . [facility] 15:28 Decision to Hospitalize by Provider. [facility] 20:34 Admitted to ER Hold. Please see [facility] for further documentation. lp1 20:34 Condition: stable 20:34 Instructed on the need for admit. 02/02 04:09 Patient left the ED. lp1 Signatures: Mervin Perez PA PA [facility] Gita Hernández RN RN lp1 Magdalena Norris RN RN Carolin Hsu RN RN tw2 Wilbert Noriega 1 Corrections: (The following items were deleted from the chart) 02/01 16:24 13:30 BP 97 / 50; Pulse 95bpm; Resp 19bpm; Pulse Ox 100% 4 lpm Nasal Cannula; tw2 tw2 16:26 12:30 Reassessment: Patient appears in no apparent distress at this time. No changes tw2 from previously documented assessment. Patient and/or family updated on plan of care and expected duration. Pain level reassessed. Patient is alert, oriented x 3, equal unlabored respirations, skin warm/dry/pink. tw2 18:52 18:22 BP 93 / 50; Pulse 84bpm; Resp 17bpm; Pulse Ox 100% 4 lpm Nasal Cannula; tw2 tw2
[2020-02-02] MEDS ORDERED: NA CHLORIDE 0.9% 500 ML ONE (16:06)
[2020-02-02] MEDS ORDERED: METHYLPREDNISOLONE 125 MG INJ ONE (16:06)
--- NOTE | 2020-02-02 16:12 | P.HP ---
Certification for Inpatient Patient admitted to: Observation With expected LOS: <2 Midnights Patient will require the following post-hospital care: None Practitioner: I am a practitioner with admitting privileges, knowledge of patient current condition, hospital course, and medical plan of care. Services: Services provided to patient in accordance with Admission requirements found in Title 42 Section 412.3 of the Code of Federal Regulations Patient History Date of Service: 02/02/20 Reason for admission: COPD exacerbation History of Present Illness: 74-year-old female with history of advanced COPD on chronic home oxygen therapy, MAC, pulmonary hypertension presents emergency department for worsening shortness of breath and increased sputum production over the course of the last few days. Patient reports that she has home oxygen at 4 L per nasal cannula at home but she does not take chronic oral steroids. 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 During her evaluation in the emergency department patient is found to have an elevated white blood cell count at 21 and on 4 L per nasal cannula she desaturates into the mid to high 80s while standing next to the bed. Patient states that she feels more short of breath than normal and has been having increased sputum production. ED provider wishes to admit patient for further evaluation and management. When I saw the patient in the emergency department she is awake, alert, oriented x4. No respiratory distress noted. Patient's blood pressure was on the low side. She states this is normal for her. Patient is not tachycardic, lactate within normal limits. Patient does not appear septic at this time. Patient be admitted for further evaluation and management. Allergies Sulfa (Sulfonamide Antibiotics) Allergy (Intermediate, Verified 11/24/19 04:52) Hives/Rash trimethoprim [From Bactrim] Allergy (Intermediate, Verified 11/24/19 04:52) Rash sulfamethoxazole [From Bactrim] Allergy (Verified 11/24/19 04:52) Unknown Home Medications: Albuterol Neb [Proventil 0.083% Neb Soln] 1 amp IH Q4HP PRN 11/07/19 Albuterol Sulfate [Proair Hfa] 8.5 gm IH Q4HP PRN 11/07/19 Ambrisentan [Letairis] 10 mg PO DAILY 11/07/19 Cholecalciferol (Vitamin D3) [Vitamin D3] 2,000 unit PO DAILY 11/07/19 Citalopram [Celexa*] 40 mg PO BEDTIME 11/07/19 Glucosamine HCl 500 mg PO DAILY 11/07/19 Guaifenesin [Mucinex] 1,200 mg PO DAILY 11/07/19 Montelukast [Singulair*] 10 mg PO BEDTIME 11/07/19 [place]-3 Fatty Acids [[place]-3] 3,000 mg PO DAILY 11/07/19 Tiotropium [Spiriva Handihaler*] 2 puff IH DAILY 11/07/19 Turmeric Root Extract [Turmeric] 500 mg PO DAILY 11/07/19 ALPRAZolam [Xanax*] 0.5 mg PO TID PRN 11/08/19 Acyclovir [Zovirax] 200 mg PO BID 11/08/19 Fluticasone/Umeclidin/Vilanter [Trelegy Ellipta 100-62.5-25] 1 each IH DAILY #30 blst.w.dev 11/09/19 levoFLOXacin [Levaquin] 750 mg PO DAILY #5 tab 11/26/19 predniSONE [Deltasone*] 10 mg PO DAILY #30 tab 11/26/19 - Past Medical/Surgical History Diabetic: No -: shingles -: copd -: depression with anxiety -: mycobacterium avium -: neuropathy, -: fatty liver -: osteoporosis -: Pulmonary hypertension -: left upper lobectomy -: l kidney cyst -: tonsillectomy -: csection -: tubal ligation Psychosocial/ Personal History: Patient lives at home with her grandson - Family History Mother -: Lung disease Notes: copd 1978 Father -: Liver disease Notes: cirrhosis Brother -: Cancer Notes: Leukemia Sister -: Lung disease - Social History Smoking Status: Former smoker Alcohol use: Yes CD- Drugs: No Caffeine use: Yes Place of Residence: Home Review of Systems 10-point ROS is otherwise unremarkable Respiratory: Cough, Shortness of Breath, Sputum Physical Examination - Physical Exam General: Alert, In no apparent distress, Oriented x3 HEENT: Atraumatic, Normocephalic, PERRLA, Other (Mucous membranes try) Neck: Supple Respiratory: Normal air movement, Diminished Cardiovascular: No edema, Normal S1 S2 Capillary refill: <2 Seconds Gastrointestinal: Normal bowel sounds, Soft and benign Musculoskeletal: No contractures, No erythema, No tenderness Integumentary: No rashes Neurological: Normal speech, Normal tone, Sensation intact - Studies Laboratory Data (last 24 hrs) 02/02/20 12:17: PT 13.3 H, INR 1.13 02/02/20 12:17: WBC 21.0 H*, Hgb 11.9 L, Hct 36.2, Plt Count 234 02/02/20 12:17: Sodium 138, Potassium 3.6, BUN 11, Creatinine 0.66, Glucose 112 H, Magnesium 1.9 D, Total Bilirubin 0.5, AST 23, ALT 25, Alkaline Phosphatase 73 Microbiology Data (last 24 hrs): 02/02/20 12:25 Nasopharnyx Influenza Type A Antigen Screen - Final 02/02/20 12:25 Nasopharnyx Influenza Type B Antigen Screen - Final Assessment and Plan - Plan Assessment Acute on chronic respiratory failure with hypoxia secondary to COPD exacerbation on chronic home oxygen therapy Pulmonary hypertension History of MAC with lobectomy Plan Acute on chronic respiratory failure with hypoxia secondary to COPD exacerbation on chronic home oxygen therapy: Will start with IV corticosteroids, antibiotics, and inhalers. Pulmonology has been consulted on this case. Continue oxygen therapy as needed. DVT prophylaxis with Lovenox 40 mg subcutaneous once daily. White blood cell count 21, will repeat with morning labs. CT PE protocol and chest x-ray negative for acute findings, pneumonia. Anticipate clinical improvement next 24-48 hr. Will also obtain sputum culture. Pulmonary hypertension: Obtain and continue patient's home medications. Patient reports recent echocardiogram and scheduled to have another 1 in the near future with her heel burnisher and neck pinner in [place]. History of MAC with lobectomy: Stable at this time. Will obtain sputum culture. Discharge Plan: Home Plan to discharge in: 24 Hours - Advance Directives Does patient have a Living Will: Yes Does patient have a Durable POA for Healthcare: Yes - Code Status/Comfort Care Code Status Assessed: Yes (Patient is full code) Critical Care: No Time Spent Managing Pts Care (In Minutes): 55
[2020-02-02 16:40] LABS: Urine Blood NEGATIVE (NEG); Urine Glucose NEGATIVE (NEG); Urine Protein 1+ (NEG); Urine pH 5.5 (5.0-7.0)
[2020-02-02 20:09] VITALS: BMI 17.9
[2020-02-02] MEDS ORDERED: NA CHLORIDE 0.9% 1,000 ML IV SCH (20:11)
[2020-02-02] MEDS ORDERED: Levofloxacin500mg IV 500 MG/100 ML BAG IV ONE ×2 (20:11→20:39)
[2020-02-02] MEDS ORDERED: ONDANSETRON 4 MG/2 ML VIAL IV PRN (20:11)
[2020-02-02] MEDS ORDERED: ALBUTEROL INHALER 60 PUFF/8 GM IH PRN (20:11)
[2020-02-02] MEDS: METHYLPREDNISOLONE 40 MG INJ IV SCH (20:11)
[2020-02-02] MEDS ORDERED: BENZONATATE 100 MG CAP PO PRN (20:11)
[2020-02-02] MEDS ORDERED: ACETAMINOPHEN 500 MG TAB PO PRN (20:11)
[2020-02-02] MEDS ORDERED: METHYLPREDNISOLONE 40 MG INJ ONE (20:39)
[2020-02-02] MEDS ORDERED: NA CHLORIDE 0.9% 1,000 ML ONE (20:40)
[2020-02-02] MEDS: DULERA 100/5 (MOMETASONE/FORMOTEROL) INHALER IH SCH (21:00)
[2020-02-03] MEDS: METHYLPREDNISOLONE 40 MG INJ IV SCH ×2 (00:55→08:07)
[2020-02-03 04:58] LABS: Absolute Lymphocytes (CBC) 0.6 K/uL (0.7-4.9); Basophils % 0.4 % (0-1.3); Hematocrit 32.4 % (36.0-45.0); Lymphocytes % 4.6 % (15.3-44.8); MPV 8.3 fL (7.6-11.3)
[2020-02-03 05:15] LABS: BUN Blood Urea Nitrogen 11 mg/dL (7-18); Bicarbonate 25 mmol/L (21-32); Glucose Level 142 mg/dL (74-106); Potassium 3.9 mmol/L (3.5-5.1); Sodium Level 140 mmol/L (136-145)
[2020-02-03] MEDS: DULERA 100/5 (MOMETASONE/FORMOTEROL) INHALER IH SCH (08:09)
[2020-02-03] MEDS ORDERED: POTASSIUM CL SA 10 MEQ TAB PO ONE (09:00)
[2020-02-03] MEDS ORDERED: ENOXAPARIN 40 MG/0.4 ML SQ SCH (09:00)
--- NOTE | 2020-02-03 09:25 | P.DS ---
Admission Date: 02/02/20 Discharge Date: 02/03/20 Disposition: ROUTINE DISCHARGE Discharge Condition: GOOD Reason for Admission: COPD exacerbation Consultations: Pulmonology- Dr. Mares Procedures: Chest x-ray IMPRESSION: Very extensive interstitial fibrotic lung pattern not clearly different from comparison. Severity of disease could mask early edema or infiltrate. CT PE protocol FINDINGS: No evidence of pulmonary thromboembolism. No acute aortic finding demonstrated. Diffuse severe emphysema is present. Interstitial lung markings are mildly prominent bilaterally. No significant pericardial or pleural fluid. No concerning bony finding. IMPRESSION: No evidence of pulmonary thromboembolism. Advanced diffuse COPD. Medical problem list Acute on chronic respiratory failure with hypoxia secondary to COPD exacerbation on chronic home oxygen therapy Pulmonary hypertension History of MAC with lobectomy Brief History of Present Illness: 74-year-old female with history of advanced COPD on chronic home oxygen therapy, MAC, pulmonary hypertension presents emergency department for worsening shortness of breath and increased sputum production over the course of the last few days. Patient reports that she has home oxygen at 4 L per nasal cannula at home but she does not take chronic oral steroids. 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 During her evaluation in the emergency department patient is found to have an elevated white blood cell count at 21 and on 4 L per nasal cannula she desaturates into the mid to high 80s while standing next to the bed. Patient states that she feels more short of breath than normal and has been having increased sputum production. ED provider wishes to admit patient for further evaluation and management. When I saw the patient in the emergency department she is awake, alert, oriented x4. No respiratory distress noted. Patient's blood pressure was on the low side. She states this is normal for her. Patient is not tachycardic, lactate within normal limits. Patient does not appear septic at this time. Patient be admitted for further evaluation and management. Hospital Course: Patient was admitted overnight for COPD exacerbation. Patient remained on nasal cannula which she has at home with home oxygen. Patient has done well overnight, white blood cell count has decreased from 20 to 13. Patient saturating well in no respiratory distress. While receiving IV Levaquin last night she developed a small rash and discomfort on her arm. Will give patient 1 dose of oral Levaquin while she is in the hospital and observe her closely to ensure that she has not had a reaction. Patient has taken this medication in the past without any issues. Patient states she is also feeling much better. A discharge patient will continue with prednisone 10 mg p.o. b.i.d. for 10 days and Levaquin 500 mg p.o. daily for 1 week. The patient went to follow up outpatient with her plaster model and mold maker and curator. Vital Signs/Physical Exam: Temp Pulse Resp BP Pulse Ox 97.6 F 96 H 20 113/57 L 93 02/03/20 08:00 02/03/20 08:00 02/03/20 08:00 02/03/20 08:00 02/03/20 08:00 General: Alert, In no apparent distress, Oriented x3 HEENT: Atraumatic, Normocephalic, PERRLA Neck: Supple Respiratory: Clear to auscultation bilaterally, Normal air movement Cardiovascular: No edema Gastrointestinal: Normal bowel sounds, Soft and benign Musculoskeletal: No contractures, No erythema, No tenderness Integumentary: No significant lesion, No tenderness/swelling, No erythema Neurological: Normal gait, Normal speech, Normal tone Laboratory Data at Discharge: WBC 13.5 K/uL (4.3-10.9) H D 02/03/20 04:46 Hgb 10.9 g/dL (12.0-15.0) L 02/03/20 04:46 Hct 32.4 % (36.0-45.0) L 02/03/20 04:46 Plt Count 205 K/uL (152-406) 02/03/20 04:46 PT 13.3 SECONDS (9.5-12.5) H 02/02/20 12:17 INR 1.13 02/02/20 12:17 Sodium 140 mmol/L (136-145) 02/03/20 04:46 Potassium 3.9 mmol/L (3.5-5.1) 02/03/20 04:46 BUN 11 mg/dL (7-18) 02/03/20 04:46 Creatinine 0.56 mg/dL (0.55-1.3) 02/03/20 04:46 Glucose 142 mg/dL (74-106) H 02/03/20 04:46 Magnesium 1.9 mg/dL (1.8-2.4) D 02/02/20 12:17 Total Bilirubin 0.5 mg/dL (0.2-1.0) 02/02/20 12:17 AST 23 U/L (15-37) 02/02/20 12:17 ALT 25 U/L (12-78) 02/02/20 12:17 Alkaline Phosphatase 73 U/L (45-117) 02/02/20 12:17 Home Medications: Albuterol Neb [Proventil 0.083% Neb Soln] 1 amp IH Q4HP PRN 11/07/19 Albuterol Sulfate [Proair Hfa] 2 puff IH Q4HP PRN 11/07/19 Ambrisentan [Letairis] 5 mg PO DAILY 11/07/19 Cholecalciferol (Vitamin D3) [Vitamin D3] 2,000 unit PO DAILY 11/07/19 Citalopram [Celexa*] 40 mg PO DAILY 11/07/19 Glucosamine HCl 500 mg PO DAILY 11/07/19 Guaifenesin [Mucinex] 1,200 mg PO DAILY 11/07/19 Montelukast [Singulair*] 10 mg PO DAILY 11/07/19 [place]-3 Fatty Acids [[place]-3] 3,000 mg PO DAILY 11/07/19 Tiotropium [Spiriva Handihaler*] 2 puff IH DAILY 11/07/19 Turmeric Root Extract [Turmeric] 500 mg PO DAILY 11/07/19 ALPRAZolam [Xanax*] 0.5 mg PO DAILY PRN 11/08/19 Acyclovir [Zovirax] 200 mg PO DAILY 11/08/19 Budesonide/Formoterol Fumarate [Symbicort 160-4.5 Mcg Inhaler] 2 puff IH DAILY 02/02/20 levoFLOXacin [Levaquin] 500 mg PO DAILY #7 tab 02/03/20 predniSONE [Deltasone*] 10 mg PO BID #20 tab 02/03/20 New Medications: predniSONE [Deltasone*] 10 mg PO BID #20 tab levoFLOXacin [Levaquin] 500 mg PO DAILY #7 tab Patient Discharge Instructions: 1. Please follow the primary care doctor in 1-2 weeks to follow up this hospitalization. 2. Please also follow up with the plaster model and mold maker and curator as scheduled. 3. Patient was admitted overnight for COPD exacerbation. Patient remained on nasal cannula which she has at home with home oxygen. Patient has done well overnight, white blood cell count has decreased from 20 to 13. Patient saturating well in no respiratory distress. While receiving IV Levaquin last night she developed a small rash and discomfort on her arm. Will give patient 1 dose of oral Levaquin while she is in the hospital and observe her closely to ensure that she has not had a reaction. Patient has taken this medication in the past without any issues. Patient states she is also feeling much better. A discharge patient will continue with prednisone 10 mg p.o. b.i.d. for 10 days and Levaquin 500 mg p.o. daily for 1 week. The patient went to follow up outpatient with her plaster model and mold maker and curator. Diet: Regular Activity: Ad micky Time spent managing pt's care (in minutes): 55
[2020-02-03 09:42] VITALS: O2SAT 93
[2020-02-03] MEDS ORDERED: levoFLOXacin 500 MG TAB PO ONE (10:53)
--- NOTE | 2020-02-03 10:59 | P.CNS ---
Date of Consult: 02/03/20 Reason for Consult: COPD exacerbation Chief Complaint: COPD exacerbation History of Present Illness: Patient is 74 years of age with a history of severe COPD became worse last Thursday worsening cough shortness of breath patient is compliant with her bronchodilators came in here to the emergency room is feeling fine now Allergies Sulfa (Sulfonamide Antibiotics) Allergy (Intermediate, Verified 02/02/20 20:09) Hives/Rash trimethoprim [From Bactrim] Allergy (Intermediate, Verified 02/02/20 20:09) Rash levofloxacin [From Levaquin] Allergy (Verified 02/03/20 06:32) Rash sulfamethoxazole [From Bactrim] Allergy (Verified 02/02/20 20:09) Unknown Home Medications: Albuterol Neb [Proventil 0.083% Neb Soln] 1 amp IH Q4HP PRN 11/07/19 Albuterol Sulfate [Proair Hfa] 2 puff IH Q4HP PRN 11/07/19 Ambrisentan [Letairis] 5 mg PO DAILY 11/07/19 Cholecalciferol (Vitamin D3) [Vitamin D3] 2,000 unit PO DAILY 11/07/19 Citalopram [Celexa*] 40 mg PO DAILY 11/07/19 Glucosamine HCl 500 mg PO DAILY 11/07/19 Guaifenesin [Mucinex] 1,200 mg PO DAILY 11/07/19 Montelukast [Singulair*] 10 mg PO DAILY 11/07/19 [place]-3 Fatty Acids [[place]-3] 3,000 mg PO DAILY 11/07/19 Tiotropium [Spiriva Handihaler*] 2 puff IH DAILY 11/07/19 Turmeric Root Extract [Turmeric] 500 mg PO DAILY 11/07/19 ALPRAZolam [Xanax*] 0.5 mg PO DAILY PRN 11/08/19 Acyclovir [Zovirax] 200 mg PO DAILY 11/08/19 Budesonide/Formoterol Fumarate [Symbicort 160-4.5 Mcg Inhaler] 2 puff IH DAILY 02/02/20 - Past Medical/Surgical History Diabetic: No -: shingles -: copd -: depression with anxiety -: mycobacterium avium -: neuropathy, -: fatty liver -: osteoporosis -: Pulmonary hypertension -: left upper lobectomy -: l kidney cyst -: tonsillectomy -: csection -: tubal ligation Psychosocial/ Personal History: Patient lives at home with her grandson - Family History Mother Medical History: Lung disease Notes: copd 1978 Father Medical History: Liver disease Notes: cirrhosis Brother Medical History: Cancer Notes: Leukemia Sister Medical History: Lung disease - Social History Smoking Status: Former smoker Alcohol use: No CD- Drugs: No Caffeine use: Yes Place of Residence: Home Review of Systems 10-point ROS is otherwise unremarkable General: Weakness Respiratory: Cough, Shortness of Breath Physical Examination Temp Pulse Resp BP Pulse Ox 97.6 F 96 H 20 113/57 L 93 02/03/20 08:00 02/03/20 08:00 02/03/20 08:00 02/03/20 08:00 02/03/20 08:00 General: Alert, Oriented x3 Respiratory: Clear to auscultation bilaterally, Diminished Cardiovascular: No edema, Normal S1 S2 Laboratory Data (last 24 hrs) 02/02/20 12:17: PT 13.3 H, INR 1.13 02/02/20 12:17: WBC 21.0 H*, Hgb 11.9 L, Hct 36.2, Plt Count 234 02/02/20 12:17: Sodium 138, Potassium 3.6, BUN 11, Creatinine 0.66, Glucose 112 H, Magnesium 1.9 D, Total Bilirubin 0.5, AST 23, ALT 25, Alkaline Phosphatase 73 Physician Review: Patient Assessed, Agree with Above Assessment and Plan
[2020-02-03 14:01] VITALS: BP 110/54; TEMP 97.4
--- NOTE | 2020-02-03 15:18 | EKG ---
Test Date: 2020-02-02 Test Time: 13:04:07 Embossed Or Impressed Lettering Painter: MARLENE MEASUREMENT RESULTS: Intervals: Rate: 102 SC: 128 QRSD: 86 QT: 382 QTc: 497 [place]: P: SC: 128 QRS: -59 T: 0 INTERPRETIVE STATEMENTS: Sinus tachycardia Low voltage QRS RSR' or QR pattern in V1 suggests right ventricular conduction delay Left anterior fascicular block Cannot rule out Anterior infarct, age undetermined Abnormal ECG Compared to ECG 11/23/2019 23:49:50 Low QRS voltage now present RSR' in V1 or V2 now present Left anterior fascicular block now present Right superior axis no longer present Right ventricular hypertrophy no longer present Myocardial infarct finding still present Electronically Signed On 02-03-20 15:17:07 CDT by Patrick Bhatt
[2020-02-03] MEDS ORDERED: Levofloxacin 250mg IV 250 MG/50 ML BAG IV SCH (21:00)
== END 2020-02-03 14:20 | disposition home or self-care (01) ==
LOC: ER 11:19 → ERHOLD 15:57 → 2ND 02-03 03:47
PROVIDERS: ADMIT Internal Medicine; ATTEND Internal Medicine
DX: J44.1 Chronic obstructive pulmonary disease with (acute) exacerbation (principal); J96.21 Acute and chronic respiratory failure with hypoxia; Z99.81 Dependence on supplemental oxygen; I27.20 Pulmonary hypertension, unspecified; R21 Rash and other nonspecific skin eruption; F41.8 Other specified anxiety disorders; K76.0 Fatty (change of) liver, not elsewhere classified; M81.0 Age-related osteoporosis without current pathological fracture; Z20.828 Contact with and (suspected) exposure to other viral communicable diseases; Z90.2 Acquired absence of lung [part of]; Z87.891 Personal history of nicotine dependence; Z79.899 Other long term (current) drug therapy; Z88.2 Allergy status to sulfonamides; Z88.3 Allergy status to other anti-infective agents; Z83.6 Family history of other diseases of the respiratory system; Z80.6 Family history of leukemia
CPT/HCPCS: 96361; 93005; 87040 ×2; 85025 ×2; 80048 ×2; 36415; 83735; 85610; 80076; 83605; 81003; 84484; 84145; 83880; 87804 ×2; 71275; 71045; 96374; 99285; U0002; Q9967; J1650; J7040; J7030; J2930; J2920 ×2; G0378 ×3; J7606

== ENCOUNTER 2020-05-16 13:44 | Observation (INO) | payer OTHER, MEDICARE ==
--- OUTSIDE RECORDS SUMMARY | 2020-05-16 13:47 | XMS REPORT | Clinical Summary ---
:1945 Author Organization [facility] Address [address] [place] [address] Care Team Providers Name Role Phone Jose Crawford Primary Care Provider Allergies Active Allergy [...] by 0 A ctive (MUCINEX) 600 mg 12 mouth daily. hr [...] capsule 2 (two) times daily. cholecalciferol, Take 2,000 Units by 0 Active vitamin D3, mouth daily . (VITAMIN D3) 1,000 unit capsuleIndications: Take 2 [...] 0 Active (LETAIRIS) 10 MG daily. tablet Active Problems Problem Noted Date Acute hypoxemic respiratory failure 03/20/2019 Heart failure 06/11/2018 Encounters Date Type Specialty Care Team Description 02/02/2020 Lab Requisition Lab 11/24/2019 Lab Requisition Lab 11/07/2019 Lab Requisition Lab after 05/16/2019 Social History Tobacco Use Types Packs/Day Years Used Date Former Smoker 1.5 40 Quit: 2004 Smokeless Tobacco: Never Used Alcohol Use Drinks/Week oz/Week Comments Yes 1 Glasses of wine 1.0 occasional Alcohol Habits Answer Date Recorded How often do you have a drink containing alcohol? Never 06/10/2018 How many drinks containing alcohol do you have on a typical Not asked day when you are drinking? How often do you have six or more drinks on one occasion? No t asked Sex Assigned at Date Recorded Not on file Last Filed Vital Signs Not on file Plan of Treatment Health Maintenance Due Date Last Done Comments MEDICARE ANNUAL WELLNESS (YEAR 2 or FIRST YEAR if no 11/28/2002 IPPE) PNEUMOCOCCAL 65+ YRS (1 of 1 - [id number]) 12/23/2008 INFLUENZA VACCINE (#1) 2020 03/18/2017 Procedures Procedure Name Priority Date/Time Associated Diagnosis Comme nts SARS-COV2/RT-PCR Routine 02/02/2020 12:25 PM Resu lts for this ([facility]) CDT procedure are in the results section. SARS-COV2/RT-PCR Routine 11/24/2019 12:25 AM Resu lts for this ([facility]) CDT procedure are in the results section. SARS-COV2/RT-PCR Routine 11/07/2019 4:39 PM Resu lts for this ([facility]) CDT procedure are in the results section. after 05/16/2019 Results SARS-CoV2/RT-PCR ([facility]) (02/02/2020 12:25 PM CDT)Only the most recent of3 resultswithin the time period is included. SARS-COV2/RT-PCR Negative Not Detected, SHREYA CRUZ'Kevin Negative, See [facility] external report CENTER for linked test SARS-COV-2 [facility] SHREYA CRZUKevin PERFORMING LAB [facility] Specimen Other - Nasopharyngeal wall structure (b jerry structure) Narrative Performed At Negative result for this test determines that [facility] SARS-CoV-2 RNA was not present in the specimen above the Limit of Detection (LOD). However, Negative results do not preclude SARS-CoV-2 infection and should not be used as the sole basis for treatment or patient management decisions. Negative results must be combined with clinical observations, patient history, and epidemiological information. A false negative result may occur if a specimen is improperly collected, transported or handled. A false negative result should be considered if patient's recent exposures or clinical presentation indicate that COVID-19 (SARS-CoV-2) is likely and diagnostic tests for other causes of illness are negative. Re-testing should be considered in cases of suspected false negatives. The limit of detection for this assay is 800 copies/mL. This SARS CoV-2 test is a real-time RT-PCR test intended for the qualitative detection of nucleic acid from SARS-CoV-2 in a nasopharyngeal swab specimen collected from individuals suspected of COVID-19 by their healthcare provider. This test has not been Food and Drug Administration (FDA) cleared or approved. This is a modified version of an approved Emergency Use Authorization (EUA) and is in the process of review by the FDA. Once authorized by the FDA, the issued EUA will be effective until the declaration that circumstances exist justifying the authorization of the emergency use of in vitro diagnostic tests for detection and/or diagnosis of COVID-19 is terminated under Section 564(b)(2) of the Act or the EUA is revoked under Section 564(g) of the Act. Fact Sheet for Healthcare Providers: https://www.quidel.[employer].com/sites/default/files/pro duct/documents/Fact_Sheet_HC_Providers_Lyra_SA RS-CoV-2.pdf Fact Sheet for Healthcare Patients: https://www.Foruforever.[employer].com/sites/default/files/pro duct/documents/Fact_Sheet_Patients_Lyra_SARS-C oV-2.pdf Performing Laboratory: [address] [address] Performing Organization Address City/State/Zipcode Phone Number [facility] [address] [place] [phone] CENTER after 05/16/2019 Insurance Payer Benefit Plan / Subscriber ID Effective Dates Phone Addre ss Type Group MEDICARE MEDICARE A B [id number] 2001-Present Medicare [facility] [id number] 2017-Present Medigap SUPPLEMENT/[employer] Advance Directives For more information, please contact: [phone] Code Status Date Activated Date Inactivated Comments Full Code 03/20/2019 6:18 AM 03/23/2019 4:07 PM This code status was determined by: Patient
--- OUTSIDE RECORDS SUMMARY | 2020-05-16 13:47 | XMS REPORT | Clinical Summary ---
:1945 Author Organization [facility] Address [address] [place] [address] Care Team Providers Name Role Phone Crow [...] Specialty Care Team Description 08/23/2019 Surgery Procedural Bandeali, CV RIGHT HEART CATH Cardiology Lopez [[id number] (CPT)] MD Radha 08/23/2019 Hospital Encounter Procedural Bandeali Primary p ulmonary Cardiology Lopez hypertension (H CC) MD Radha 07/12/2019 - Hospital Encounter Nephrology Jordan Craig Acute res piratory distress (Primary Dx); 07/15/2019 MD Frankie Tachycardia; Gordon Feng Severe persis tent reactive airway disease with acute exacerbation; MD Cristhian Acute on chroni c respiratory failure with hypoxemia (HCC); Pulmonary hyper tension (HCC); Acute bronchiti s due to Rhinovirus; Leukocytosis, u nspecified type 07/12/2019 Transcribe Orders Radiology Mayra, Cough (Elma emily Dx) Seamus Kurtz MD after 05/16/2019 Immunizations Name Administration Dates Next Due FLUZONE QUAD PF 03/18/2017 Surgical History Surgery Date Site/Laterality Comments SECTION, CLASSIC TONSILLECTOMY TUBAL LIGATION SKIN CANCER EXCISION eye CYST REMOVAL Left kidney EYE SURGERY 04/29/2005 - Right cataract removal 05/28/2005 EYE SURGERY 05/29/2005 - Left cataract removal 06/28/2005 CARPAL TUNNEL RELEASE 10/27/2005 - Right 11/26/2005 OTHER SURGICAL HISTORY 08/28/2007 - left uppe r lobectomy 09/27/2007 CARDIAC CATHETERIZATION 08/23/2019 N/A Procedur e: CV RIGHT HEART CATH; Leigha geon: Lopez Luz MD; Location: [facility] Invasive Loc ation; Service: Cardiol ogy; Laterality: N/A; Medical History Medical History Date Comments Shingles COPD (chronic obstructive pulmonary disease) (HCC) Family History Medical History Relation Name Comments [...] Not on file Last Filed Vital Signs Vital Sign Reading Time Taken Comments Blood Pressure 95/46 08/23/2019 12:31 PM CIVIL TRANSPORTATION ENGINEER Pulse 90 08/23/2019 12:31 PM CIVIL TRANSPORTATION ENGINEER Temperature 36.5 C (97.7 F) 08/23/2019 11:39 AM CIVIL TRANSPORTATION ENGINEER Respiratory Rate 26 08/23/2019 12:31 PM CIVIL TRANSPORTATION ENGINEER Oxygen Saturation 98% 08/23/2019 12:31 PM CIVIL TRANSPORTATION ENGINEER Inhaled Oxygen Concentration - - Weight 36.9 kg (81 lb 7 oz) 08/23/2019 7:36 AM CIVIL TRANSPORTATION ENGINEER Height 144.8 cm (4' 9") 08/23/2019 7:36 AM CIVIL TRANSPORTATION ENGINEER Body Mass Index 17.62 08/23/2019 7:36 AM CIVIL TRANSPORTATION ENGINEER Plan of Treatment Health Maintenance Due Date Last Done Comments COLONOSCOPY SCREENING 12/23/1993 SHINGLES VACCINES (#1) 12/23/1993 65+ PNEUMOCOCCAL VACCINE (1 of 1 - PPSV23) 12/23/200806/29 INFLUENZA VACCINE 01/28/2020 05/11/2019, 03/18/2017 Procedures Procedure Name Priority Date/Time Associated Diagnosis Comme nts CV RIGHT HEART CATH Routine 08/23/2019 11:16 Primary pulmonary Results for this AM CIVIL TRANSPORTATION ENGINEER hypertension (HCC) procedure are in the results section. HC COMPLETE BLD COUNT STAT 08/23/2019 8:10 Re sults for this W/AUTO DIFF AM CIVIL TRANSPORTATION ENGINEER procedure are i n the results section. POC PANEL Routine 08/23/2019 8:09 Results for this AM CIVIL TRANSPORTATION ENGINEER procedure are i n the results section. ESTIMATED GFR Routine 08/23/2019 8:09 Results fo r this AM CIVIL TRANSPORTATION ENGINEER procedure are i n the results section. ESTIMATED GFR Routine 07/15/2019 5:05 Results fo r this AM CIVIL TRANSPORTATION ENGINEER procedure are i n the results section. PHOSPHORUS LEVEL Routine 07/15/2019 5:05 Results for this AM CIVIL TRANSPORTATION ENGINEER procedure are i n the results section. MAGNESIUM LEVEL Routine 07/15/2019 5:05 Results for this AM CIVIL TRANSPORTATION ENGINEER procedure are i n the results section. BASIC METABOLIC PANEL Routine 07/15/2019 5:05 Re sults for this AM CIVIL TRANSPORTATION ENGINEER procedure are i n the results section. HC COMPLETE BLD COUNT Routine 07/15/2019 5:05 Re sults for this W/AUTO DIFF AM CIVIL TRANSPORTATION ENGINEER procedure are i n the results section. CT CHEST WO CONTRAST Routine 07/14/2019 3:27 Res ults for this PM CIVIL TRANSPORTATION ENGINEER procedure are i n the results section. CT SOFT TISSUE NECK WO Routine 07/14/2019 3:26 R esults for this CONTRAST PM CIVIL TRANSPORTATION ENGINEER procedure are i n the results section. PARTIAL THROMBOPLASTIN Routine 07/14/2019 7:00 R esults for this TIME (PTT) AM CIVIL TRANSPORTATION ENGINEER procedure are i n the results section. PARTIAL THROMBOPLASTIN STAT 07/14/2019 6:47 R esults for this TIME (PTT) AM CIVIL TRANSPORTATION ENGINEER procedure are i n the results section. PROTHROMBIN TIME WITH STAT 07/14/2019 6:47 Re sults for this INR AM CIVIL TRANSPORTATION ENGINEER procedure are i n the results section. ESTIMATED GFR Routine 07/14/2019 6:47 Results fo r this AM CIVIL TRANSPORTATION ENGINEER procedure are i n the results section. BASIC METABOLIC PANEL Routine 07/14/2019 6:47 Re sults for this AM CIVIL TRANSPORTATION ENGINEER procedure are i n the results section. HC COMPLETE BLD COUNT Routine 07/14/2019 6:47 Re sults for this W/AUTO DIFF AM CIVIL TRANSPORTATION ENGINEER procedure are i n the results section. GRAM STAIN Routine 07/13/2019 4:30 Results for this PM CIVIL TRANSPORTATION ENGINEER procedure are i n the results section. SPUTUM CULTURE Routine 07/13/2019 4:30 Results f or this PM [employer]IVIL TRANSPORTATION ENGINEER procedure are i n the results section. POC GLUCOSE Routine 07/13/2019 12:33 Results for this PM [employer]IVIL TRANSPORTATION ENGINEER procedure are i n the results section. TTE COMPLETE, WO STAT 07/13/2019 8:40 Results for this CONTRAST, W DOPPLER AM CIVIL TRANSPORTATION ENGINEER procedur e are in ([id number]) the results section. POC GLUCOSE Routine 07/13/2019 7:48 Results for this AM CIVIL TRANSPORTATION ENGINEER procedure are i n the results section. ESTIMATED GFR STAT 07/13/2019 5:30 Results fo r this AM CIVIL TRANSPORTATION ENGINEER procedure are i n the results section. THYROID STIMULATING Routine 07/13/2019 5:30 Resu lts for this HORMONE AM CIVIL TRANSPORTATION ENGINEER procedure are i n the results section. LACTIC ACID LEVEL STAT 07/13/2019 5:30 Result s for this AM [employer]IVIL TRANSPORTATION ENGINEER procedure are i n the results section. B NATRIURETIC PEPTIDE STAT 07/13/2019 5:30 Re sults for this AM CIVIL TRANSPORTATION ENGINEER procedure are i n the results section. COMPREHENSIVE STAT 07/13/2019 5:30 Results fo r this METABOLIC PANEL AM CIVIL TRANSPORTATION ENGINEER procedure ar e in the results section. HC COMPLETE BLD COUNT STAT 07/13/2019 5:30 Re sults for this W/AUTO DIFF AM CIVIL TRANSPORTATION ENGINEER procedure are i n the results section. POC GLUCOSE Routine 07/13/2019 4:49 Results for this AM CIVIL TRANSPORTATION ENGINEER procedure are i n the results section. POC GLUCOSE Routine 07/13/2019 1:47 Results for this AM CIVIL TRANSPORTATION ENGINEER procedure are i n the results section. TROPONIN Timed 07/12/2019 10:08 Results for this PM [employer]IVIL TRANSPORTATION ENGINEER procedure are i n the results section. ARTERIAL BLOOD GAS STAT 07/12/2019 9:12 Resul ts for this PM [employer]IVIL TRANSPORTATION ENGINEER procedure are i n the results section. URINE CULTURE STAT 07/12/2019 6:15 Results fo r this PM CIVIL TRANSPORTATION ENGINEER procedure are i n the results section. LACTIC ACID LEVEL Timed 07/12/2019 6:08 Result s for this PM [employer]IVIL TRANSPORTATION ENGINEER procedure are i n the results section. TROPONIN Timed 07/12/2019 6:08 Results for this PM [employer]IVIL TRANSPORTATION ENGINEER procedure are i n the results section. URINALYSIS SCREEN AND STAT 07/12/2019 6:08 Re sults for this MICROSCOPY, WITH PM CIVIL TRANSPORTATION ENGINEER procedure a re in REFLEX TO CULTURE the result s section. RESPIRATORY PATHOGEN Routine 07/12/2019 4:56 Res ults for this PANEL PM [employer]IVIL TRANSPORTATION ENGINEER procedure are i n the results section. XR CHEST 1 VW PORTABLE STAT 07/12/2019 4:15 R esults for this PM [employer]IVIL TRANSPORTATION ENGINEER procedure are i n the results section. BLOOD CULTURE, AEROBIC Routine 07/12/2019 3:31 R esults for this & ANAEROBIC PM [employer]IVIL TRANSPORTATION ENGINEER procedure are i n the results section. ARTERIAL BLOOD GAS STAT 07/12/2019 3:30 Resul ts for this PM [employer]IVIL TRANSPORTATION ENGINEER procedure are i n the results section. LACTIC ACID LEVEL STAT 07/12/2019 3:30 Result s for this PM [employer]IVIL TRANSPORTATION ENGINEER procedure are i n the results section. ECG ED PRELIMINARY Routine 07/12/2019 3:12 Resul ts for this INTERPRETATION PM CIVIL TRANSPORTATION ENGINEER procedure are in the results section. ESTIMATED GFR STAT 07/12/2019 2:55 Results fo r this PM [employer]IVIL TRANSPORTATION ENGINEER procedure are i n the results section. B NATRIURETIC PEPTIDE STAT 07/12/2019 2:55 Re sults for this PM CIVIL TRANSPORTATION ENGINEER procedure are i n the results section. TROPONIN STAT 07/12/2019 2:55 Results for this PM CIVIL TRANSPORTATION ENGINEER procedure are i n the results section. COMPREHENSIVE STAT 07/12/2019 2:55 Results fo r this METABOLIC PANEL PM [employer]IVIL TRANSPORTATION ENGINEER procedure ar e in the results section. HC COMPLETE BLD COUNT STAT 07/12/2019 2:55 Re sults for this W/AUTO DIFF PM CIVIL TRANSPORTATION ENGINEER procedure are i n the results section. ECG 12-LEAD STAT 07/12/2019 2:47 Results for this PM [employer]IVIL TRANSPORTATION ENGINEER procedure are i n the results section. after 05/16/2019 Results mini lab operator procedure (08/23/2019 11:16 AM CIVIL TRANSPORTATION ENGINEER) Specimen Narrative Performed At This result has an attachment that is no t available. 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 Herrera. Thank you for the opportunity romero of assistance. Pl ease call if questions arise. Lopez [facility] Clinical and Interventional Cardiology Office: ; Answering Service: Pager: [phone] Performing Organization Address City/[facility] Phon e Number [facility] [address] [place] [address], CBC with platelet and differential (08/23/2019 8:10 AM CIVIL TRANSPORTATION ENGINEER)Only the most recent of5 resultswithin the time period is included. WBC 7.49 4.50 - 11.00 [facility] k/uL [facility] RBC 3.94 (L) 4.20 - 5.50 [facility] m/uL [facility] HGB 11.9 (L) 12.0 - 16.0 [facility] gdL [facility] HCT 37.4 37.0 - 47.0 % [facility] MCV 94.9 82.0 - 100.0 [facility] MCH 30.2 27.0 - 34.0 pg [facility] MCHC 31.8 31.0 - 37.0 [facility] RDW - SD 49.2 37.0 - 55.0 fL [facility] MPV 9.8 8.8 - 13.2 fL [facility] Platelet count 233 150 - 400 k/uL [facility] Nucleated RBC 0.00 /100 WBC [facility] Neutrophils 50.9 39.0 - 69.0 % [facility] Lymphocytes 32.2 25.0 - 45.0 % [facility] Monocytes 11.7 (H) 0.0 - 10.0 % [facility] Eosinophils 3.2 0.0 - 5.0 % [facility] Basophils 1.7 (H) 0.0 - 1.0 % [facility] Immature granulocytes 0.3Comment: 0.0 - 1.0 % [facility] "Immature [facility] granulocytes" (promyelocytes , myelocytes, metamyelocytes ) Specimen Blood Performing Organization Address City/[facility] Code Phon e Number [facility] DEPARTMENT OF PATHOLOGY AND [address] [place], [place] [address] GENOMIC MEDICINE [facility] [address] [place] [address] Estimated GFR (08/23/2019 8:09 AM CIVIL TRANSPORTATION ENGINEER)Only the most recent of5 resultswithin the time period is included. [facility] Estimated GFR 89 mL/min/1.73 [facility] Comment: m2 HOSPITAL Catergory Units Interpretation G1 [...] in 2014. Specimen Blood Performing Organization Address [facility] Phon e Number [facility] DEPARTMENT OF PATHOLOGY AND [address] [place] [address] [phone] [address] POC panel (08/23/2019 8:09 AM CIVIL TRANSPORTATION ENGINEER) [facility] POC sodium 141 135 - 148 [facility] mmol/L [facility] POC potassium 4.2 3.5 - 5.0 [facility] P[facility] chloride 102 99 - 109 [facility] mmol/L [facility] POC CO2 31 24 - 31 mmol/L [facility] POC glucose 91 65 - 99 mg/dL [facility] POC BUN 9 8 - 24 mg/dL [facility] POC creatinine 0.6 0.5 - 0.9 [facility] mg/dl [facility] POC hematocrit 39 37 - 47 % [facility] POC anion gap 13 8 - 20 mmol/L [facility] Comment: HOSPITAL Topper Packer Name: Garciarogelio Buckleynita Device ID: [id number] Specimen Performing Organization Address [facility] Phon e Number [facility] DEPARTMENT OF PATHOLOGY AND [address] [place] [address] [phone] [address] Phosphorus level (07/15/2019 5:05 AM CIVIL TRANSPORTATION ENGINEER) Pathologist [facility] nature Phosphorus 3.4 2.4 - 4.5 mg/dL [facility] L Specimen Plasma specimen Performing Organization Address [facility] Phon e Number [facility] DEPARTMENT OF PATHOLOGY AND [address] [place] [address] [phone] [address] Magnesium level (07/15/2019 5:05 AM CIVIL TRANSPORTATION ENGINEER) Pathologist Sig nature Magnesium 2.1 1.6 - 2.4 mg/dL [facility] L Specimen Plasma specimen Performing Organization Address [facility] Phon e Number [facility] DEPARTMENT OF PATHOLOGY AND [address] [place], [place] [address] [address] [address] Basic metabolic panel (07/15/2019 5:05 AM CIVIL TRANSPORTATION ENGINEER)Only the most recent of2 results within the time period is included. Pathologist Sig nature Sodium 142 135 - 148 mEq/L [facility] L Potassium 4.7 3.5 - 5.0 mEq/L [facility] Chloride 107 98 - 112 mEq/L [facility] CO2 28 24 - 31 mEq/L [facility] Anion gap 7@ANIO 7 - 15 mEq/L [facility] BUN 10 8 - 23 mg/dL [facility] Creatinine 0.70 0.50 - 0.90 mg/dL [facility] Glucose 91 65 - 99 mg/dL [facility] Calcium 8.8 8.8 - 10.2 mg/dL [facility] Specimen Plasma specimen Performing Organization Address [facility] Phon e Number [facility] DEPARTMENT OF PATHOLOGY AND [address] [place] [address] [address] [address] Chest Wo Contrast (07/14/2019 3:27 PM CIVIL TRANSPORTATION ENGINEER) Specimen Narrative Performed At EXAMINATION: CT CHEST [...] abdome n do not demonstrate any masses. [facility]-[id number] Procedure Note Hm Interface, Radiology Results Incoming - 07/14/2019 3:53 PM CIVIL TRANSPORTATION ENGINEER EXAMINATION: CT CHEST WO CONTRAST CLINICAL HISTORY: [...] abdome n do not demonstrate any masses. [facility]-[id number] Performing Organization Address City/State/ZIP Code Phon e Number [facility] [address] [place] [address] CT Soft Tissue Neck Wo Contrast (07/14/2019 3:26 PM CIVIL TRANSPORTATION ENGINEER) Specimen Narrative Performed At EXAMINATION: CT SOFT [...] hyoid bone, compati ble with ectopic thyroid. [id number] Dictated and approved by vice president network development/fellow: Haja Whyte M.D. I, Dimitri Forte MD, personally reviewed the images and resident's/fellow's findings and agree with the final report. Procedure Note Interface, Radiology Results Incoming - 07/14/2019 4:32 PM CIVIL TRANSPORTATION ENGINEER EXAMINATION: CT SOFT TISSUE NECK WO CONTRAST [...] left hyoid bone, compatible with ectopic thyroid. [id number] Dictated and approved by radiology resid ent/fellow: Beba Whyte M.D. I, Dimitri Forte MD, personally reviewed t he images and resident's/fellow's findings and agree with the final report. Performing Organization Address City/State/ZIP Code Phon e Number [facility] [address] [place] [address] Partial thromboplastin time, activated (07/14/2019 7:00 AM CIVIL TRANSPORTATION ENGINEER)Only the most recent of2 resultswithin the time period is included. Pathologist [facility] PTT 32.2 23.0 - 36.0 [facility] Comment: [facility] PTT therapeutic range for unfractionated heparin is 61.0-112.0 seconds which corresponds to Anti-Xa 0.3-0.7 U/ml. Specimen Blood Performing Organization Address City/[facility]/ZIP Code Phon e Number [facility] DEPARTMENT OF PATHOLOGY AND [address] [place] [address] [place] [address] Prothrombin time with INR (07/14/2019 6:47 AM CIVIL TRANSPORTATION ENGINEER) Pathologist [facility] Prothrombin time 12.7 11.5 - 14.[address] [facility] INR 1.0 [place] Comment: GNOSTICIST The International Normalized Ratio (INR) is a therapeu [facility] monitoring tool for patients who are stable on oral anticoagulant therapy. An INR of 2.0-3.0 is suggested for deep vein thrombosis/pulmonary embolism. Specimen Blood Narrative Performed At PTT added and read back to Malissa Reyes [facility] DEPARTMEN T OF PATHOLOGY AND GENOMIC in FMIC 07/14/2019 06:59 LMID. MEDICINE Performing Organization Address City/[facility] Phon e Number [facility] DEPARTMENT OF PATHOLOGY AND [address] [place] [address] [phone] [address] Sputum culture (07/13/2019 4:30 PM CIVIL TRANSPORTATION ENGINEER) Pathologist [facility] Sputum culture Normal oral yenni isolated. ALEXUS CANTRELL isolate Comment: HOSPITAL Specimen Information Specimen Source: Sputum Specimen Site: Expectorated Specimen Sputum - Expectorated Performing Organization Address City/State/ZIP [facility] Phon e Number [facility] DEPARTMENT OF PATHOLOGY AND [address] [place] [address] [phone] [address] Gram stain (07/13/2019 4:30 PM CIVIL TRANSPORTATION ENGINEER) Pathologist [facility] Gram stain isolate Few WBC's [facility] Few Gram positive cocci in clusters [facility] Many Gram positive cocci in chains Comment: Specimen Information Specimen Source: Sputum Specimen Site: Expectorated Specimen Sputum - Expectorated Performing Organization Address [facility] Phon e Number [facility] DEPARTMENT OF PATHOLOGY AND [address] [place], [place] [address] [address] [address] POC glucose (07/13/2019 12:33 PM CIVIL TRANSPORTATION ENGINEER)Only the most recent of4 resultswithin the time period is included. Pathologist Sig nature POC glucose 82 65 - 99 mg/dL [facility] Comment: HOSPITAL Topper Packer Name: Karel Diego Device ID: [id number] Chartable: [facility] Notified RN Specimen Performing Organization Address [facility] Phon e Number [facility] DEPARTMENT OF PATHOLOGY AND [address] [place], [place] [address] [address] [address] Echocardiogram complete w contrast and 3D if needed (07/13/2019 8:40 AM CIVIL TRANSPORTATION ENGINEER) Specimen Narrative Performed At [facility] Echo cardiography Report [address] [facility] [address], [place] [address] Pat.Name: SEEMA ROMO Pat.ID: [id number] .Date: 07/13/2019 Refer.MD: GORDON FENG MD Exam Time: 6:18:00 AM Study Type:R outine Echo Height: 57in Weight: 81lb BSA: 1.23 m2 Ag e: 1945,73Y Sex: FEMALE BP: 85/49 HR: 73 bpm Sonogr phr: Naty Hale RDCS Pat. Stat.:Inpatient Room: [place] [address] Study Status:Final Echo Event ID:[id number] Order ID: [id number] Reason for Study:H/o Pulmonary hypertens ion, RA [...] of 5 mmHg. MEASUREMENTS: 2D Parasternal Long [place] Ao An 2 cm LVPWd 0.74 cm [...] Radiology Results In - 2019 9:15 AM CIVIL TRANSPORTATION ENGINEER Echocardiography Report [address] [place] [address] Pat.Name: SEEMA ROMO Pat.I D: [id number] .Date: 07/13/2019 Refer.MD: GORDON FENG MD Exam Time: 6:18:00 AM Study Type:Routine Echo Height: 57in Weigh t: 81lb BSA: 1.23 m2 Age: 4 1945,73Y Sex: FEMALE BP: 85/49 HR: 73 bpm Sonog rphr: Naty Hale RDCS Pat. Stat.:Inpatient Room: [place] [address] Study Status:Final Echo Event ID:[id number] Order ID: [id number] Reason for Study:H/o Pulmonary hypertens ion, RA [...] of 5 mmHg. MEASUREMENTS: 2D Parasternal Long [place] Ao An 2 cm LVPW d 0.74 [...] AM Dawit Holland MD Performing Organization Address City/[facility] Phon e Number [facility] [address] [place] [address] Thyroid stimulating hormone (07/13/2019 5:30 AM CIVIL TRANSPORTATION ENGINEER) Pathologist Sig nature TSH 0.51 0.27 - 4.20 uIU/mL [facility] ITAL Specimen Plasma specimen Performing Organization Address [facility] Phon e Number [facility] DEPARTMENT OF PATHOLOGY AND [address] [place] [address] [phone] [address] B natriuretic peptide (07/13/2019 5:30 AM CIVIL TRANSPORTATION ENGINEER)Only the most recent of2 results within the time period is included. Pathologist Sig nature BNP 153 (H) 0 - 100 pg/mL [facility] Specimen Blood Performing Organization Address [facility] Phon e Number [facility] DEPARTMENT OF PATHOLOGY AND [address] [place] [address] [phone] [address] Lactic acid level (07/13/2019 5:30 AM CIVIL TRANSPORTATION ENGINEER)Only the most recent of3 results within the time period is included. Pathologist Sig nature Lactic acid 1.0 0.5 - 2.2 mmol/L [facility] AL Specimen Plasma specimen Performing Organization Address [facility] Phon e Number [facility] DEPARTMENT OF PATHOLOGY AND [address] [place] [address] [phone] [address] Comprehensive metabolic panel (07/13/2019 5:30 AM CIVIL TRANSPORTATION ENGINEER)Only the most recent of2 resultswithin the time period is included. Sodium 140 135 - 148 [facility] mEq/L [facility] Potassium 4.5 3.5 - 5.0 [facility] [facility] mEq/L [facility] Chloride 106 98 - 112 mEq/L [facility] CO2 24 24 - 31 mEq/L [facility] Anion gap 10@ANIO 7 - 15 mEq/L [facility] BUN 14 8 - 23 mg/dL [facility] Creatinine 0.67 0.50 - 0.90 [facility] mg/dL [facility] Glucose 143 (H) 65 - 99 mg/dL [facility] Calcium 8.5 (L) 8.8 - 10.2 [facility] mg/dL [facility] Protein 6.3 6.3 - 8.3 g/dL [facility] Comment: HOSPITAL Ivuvqzb3204.6-7.0 g/dL 1 ahhm5592.4-7.6 g/dL 7 months-2gjdc459.1-7.3 g/dL 1-2 .6-7.5 g/dL >3 .0-8.0 g/dL 18-7086444.3-8.3 g/dL Albumin 3.0 (L) 3.5 - 5.0 g/dL [facility] A/G ratio 0.9 0.7 - 3.8 [facility] Alkaline phosphatase 78 35 - 104 U/L [facility] AST 14 10 - 35 U/L [facility] ALT 19 5 - 50 U/L [facility] Total bilirubin <0.2 0.0 - 1.2 [facility] mg/dL [facility] Specimen Plasma specimen Performing Organization Address City/State/ZIP Code Phon e Number [facility] DEPARTMENT OF PATHOLOGY AND [address] [place], [place] [phone] GENOMIC MEDICINE [facility] [address] [place] [address] Troponin (07/12/2019 10:08 PM [employer])Only the most recent of3 resultswithin the time period is included. Troponin 0.011 0.000 - 0.040 [facility] Comment: ng/mL HOSPITAL In patients suspected of [...] ng/mL Specimen Plasma specimen Performing Organization Address City/[facility] Phon e Number [facility] DEPARTMENT OF PATHOLOGY AND [address] [place] [address] Arterial blood gas (07/12/2019 9:12 PM [employer]ER)Only the most recent of2 results within the time period is included. Pathologist [facility] pH, arterial 7.41 7.35 - 7.45 [facility] pCO2, arterial 38 35 - 45 mmHg [facility] pO2, arterial 77 (L) 80 - 90 mmHg [facility] Bicarbonate, 23.6 21.0 - 28.0 [facility] arterial mmol/L HOSPITAL Base excess, 0 -2 - 2 mEq/L [facility] O2 saturation, 95 95 - 100 % [facility] Specimen Blood Performing Organization Address City/[facility] Phon e Number [facility] DEPARTMENT OF PATHOLOGY AND [address] [place] [address] [address] Urine culture (07/12/2019 6:15 PM [employer]SP[employer] ENGINEER) Pathologist [facility] nature Urine culture SEE COMMENTComment: [facility] Bacteriuria screen HOSPITAL negative. Specimen Performing Organization Address City/[facility] Phon e Number [facility] DEPARTMENT OF PATHOLOGY AND [address] [place], [place] [address] [address] [address] Urinalysis screen and microscopy, with reflex to culture (07/12/2019 6:08 PM [employer]ER) Specimen site Clean catch [facility] Color, UA Yellow [facility] Appearance, UA Clear [facility] Specific gravity, UA 1.019 1.001 - 1.035 [facility] pH, UA 6.0 5.0 - 8.5 [facility] Protein, UA Negative Negative [facility] Glucose, UA Negative Negative [facility] Ketones, UA Negative Negative [facility] Bilirubin, UA Negative Negative [facility] Blood, UA Negative Negative [facility] Nitrite, UA Negative Negative [facility] Urobilinogen, UA <2.0 <2.0 [facility] Leukocyte esterase, Negative Negative [facility] Epithelial cells, UA 1 /HPF [facility] WBC, UA <1 0 - 4 /HPF [facility] RBC, UA <1 0 - 5 /HPF [facility] Bacteria, UA Few None seen [facility] Yeast, UA None seen [facility] Yeast with None seen [facility] pseudohyphae, HOSPITAL Hyaline casts, UA 4 /LPF [facility] Specimen Urine Performing Organization Address City/State/ZIP Code Phon e Number [facility] DEPARTMENT OF PATHOLOGY AND [address] [place] [phone] GENOMIC MEDICINE [address] [address] Respiratory pathogen panel (07/12/2019 4:56 PM [employer]SP[employer] ENGINEER) Respiratory Positive for Rhinovirus/Enterovirus [facility] pathogen panel [facility]ICIST Negative for all other pathogens tested: HOSPITAL [...] presence of one or more pathogens at [facility] less than the detectable limits of the assa (A) Comment: Specimen Information Specimen Source: Nares Specimen Site: Left Specimen Nares - Left Performing Organization Address City/State/ZIP Code Phon e Number [facility] DEPARTMENT OF PATHOLOGY AND [address] [place] [address] [phone] [address] XR Chest 1 Vw Portable (07/12/2019 4:15 PM [employer]SP[employer] ENGINEER) Specimen Narrative Performed At EXAMINATION: XR CHEST 1 VW PORTABLE [facility] CLINICAL HISTORY: sob COMPARISON: CT chest 08/09/2018. Chest radiograph 11/15/2017 IMPRESSION: Prominent emphysematous changes are unchanged from the prior radiograph and better seen on prior CT. No focal consolidation or large pleural effusion. Normal cardiomediastinal silhouette. Interval angulated right sixth posterior rib fracture appears to be chronic, correlate with exam.. Procedure Note Interface, Radiology Results Incoming - 07/12/2019 4:22 PM [employer] ENGINEER EXAMINATION: XR CHEST 1 VW PORTABLE CLINICAL HISTORY: sob COMPARISON: CT chest 08/09/2018. Chest r adiograph 11/15/2017 IMPRESSION: Prominent emphysematous changes are unch anged from the prior radiograph and better seen on prior CT. No focal consolidation or large pleural effusion. Normal cardiomediastinal silhouette. Interval angulated right sixth posterior rib fracture appears to be chronic, correlate with exam.. Performing Organization Address City/[facility]/ZIP Code Phon e Number [facility] [address] [place] [address] Blood culture, aerobic & anaerobic (07/12/2019 3:31 PM [employer]SPORTATION ENGINEER) Blood culture No growth after 5 days of incubation. [facility] isolate Comment: HOSPITAL Specimen Information Specimen Source: Blood Specimen Site: Antecubital Left Specimen Blood Performing Organization Address City/State/ZIP Code Phon e Number [facility] DEPARTMENT OF PATHOLOGY AND [address] [place] [address] [phone] [address] ECG ED Preliminary Interpretation - Not an Order (07/12/2019 3:12 PM [employer]IVIL [employer]SP[employer]ATION ENGINEER) Narrative Performed At Jordan Craig MD 08/14/2019 9:51 AM ECG ED Preliminary Interpretation - Not an Order Performed by: Jordan Craig MD Authorized by: Jordan Craig MD ECG reviewed by ED Physician in the abse nce of a dope mixer: yes Interpretation: Interpretation: abnormal Rate: ECG rate: 111 ECG rate assessment: tachycardic Rhythm: Rhythm: sinus tachycardia QRS: QRS axis: Left QRS intervals: Normal ST segments: ST segments: Normal Comments: Poor baseline. ECG 12 lead (07/12/2019 2:47 PM [employer]IVIL [employer]SP[employer]ATION ENGINEER) Pathologist Sig nature Ventricular rate 111 [facility] Atrial rate 111 [facility] [place] interval 130 [facility] QRSD interval 82 [...] available-Electronicall y Signed By Gracie Barragan MD ([id number]) on 07/12/2019 6:36:46 PM Specimen Narrative Performed At This result has an attachment that is no t available. Performing Organization Address City/State/ZIP Code Phon e Number [facility] MUSE [address] [place] [address] after 05/16/2019 Insurance Payer Benefit Plan / Subscriber ID Effective Dates Phone Addre ss Type Group MEDICARE MEDICARE PART A [id number] 2001-Present [place], [place] Medicare AND B AARP AARP SUPPLEMENT [id number] 2008-Present Commercial [id number] Advance Directives For more information, please contact: [phone] Type Date Recorded Patient [employer] Bonder Explanati on Advance Directives, Living Will 08/18/2004 7:57 PM and Medical Power of Email Deployment Specialist
--- OUTSIDE RECORDS SUMMARY | 2020-05-16 13:49 | XMS REPORT | Continuity of Care Document ---
:1945 Author Organization [facility] t Address [address] [place] [address] [address] [place] [address] Care Team Providers Name Role Phone Jose Crawford DO Primary Care Physician Janusz Luz MD Attending Clinician Frankie Craig MD Attending Clinician Jung MEADOWS, T. Attending Clinician Jerardo Nunez MD Attending Clinician KAYE Attending Clinician Unavailable Kevin FLETCHER Attending Clinician Unavailable JANUSZ LUZ Attending Clinician Unavailable SUKH Admitting Clinician Unavailable JUNG Admitting Clinician Unavailable Cata MELISSA Admitting Clinician Unavailable JANUSZ LUZ Admitting Clinician Unavailable Payers Payer Name Policy Type Policy Effective Date Expiration Date Sour ce Number MEDICAREMEDICARE A [id number] 2001 SHREYA Bloom [id number] 2001- 00:00:00 - M edical [facility] MCR [id number] 2017 SHREYA Wilburn SUPPLEMENT/INDIVIDUAL 00:00:00 - M edical [id number] MEDICAREMED[facility] PART [id number] 2001 Valentin [place] AND 00:00:00 Anglican [id number] 2002- DARIO AroraMedicare CHRISTIANASAMIA [id number] 2008 Yony [id number] 00:00:00 Met rosita 2008-MarbellaComme rcial Problems Condition Condition Condition Status Onset [...] 00:00: st 00 Acute Acute Disease Active Midnight bronchitis bronchitis 1-15 Me thodi due to due to 00:00: st Rhinovirus Rhinovirus 00 Acute Acute Disease Active Midnight respirator respirator 1-14 Me thodi y distress [...] 00:00: st 00 H/O H/O Disease Active Midnight Clostridiu Clostridiu 9-07 Me thodi m m 00:00: st difficile difficile 00 infection infection September - Jan Osteoporos Osteoporos Disease Active Overview : Midnight is s/p is s/p 9-07 No Methodi RECLAST RECLAST 00:00: reactions st 12/2014, 12/2014, 00 during 04/2016, 04/2016, infusion 04/2017 but diarrhea Leg length Leg length Disease Active H akhil difference difference 9-07 Me thodi , acquired , acquired 00:00: st 00 Scoliosis Scoliosis Disease Active Marybel ston 9-07 Methodi 00:00: st 00 Renal cyst Renal cyst Disease Active [place] s/p s/p 03-05 Methodi decorticat decorticat 00:00: st ion (L) ion (L) 00 complicate complicate d post op d post op 2004 2004 CAT CAT Disease Active Overview: Tasha lilly (mycobacte (mycobacte 03-05 2008 Left Methodi rium [...] ic pigment Leucocytoc Leucocytoc Disease Active [facility] last[facility] lastic 03-05 Methodi vasculitis vasculitis 00:00: st 00 Herpes Herpes Disease Active Midnight infection infection 03-05 Meth haydee on chronic on chronic 00:00: st valacyclov valacyclov 00 ir ir Allergies, Adverse Reactions, Alerts Allergy Allergy Status [...] DS Reaction Available [facility] Family History Family Member Diagnosis Comments Start Date Stop Date Source Natural brother Leukemia Bhakta M ethodist Natural father Alcohol abuse Bhakta Anglican Natural father Cirrhosis Midnight Me thodist Natural mother COPD Midnight Me thodist Natural sister COPD Midnight Me thodist Natural sister Endometriosis Midnight Anglican Natural sister Other Midnight Me thodist Social History Social Habit Start Date Stop Date Quantity Comments Source History of tobacco Current sm[facility] History SDOH [facility] Alcohol Std Drinks [facility] History SDOH [facility] - Alcohol Binge Medical Rebel ter Sex Assigned At [facility] ethodist Tobacco use and 2019-09-12 2019-09-12 Never used [facility] ethodist exposure 00:00:00 00:00:00 Alcohol intake 2019-09-12 2019-09-12 Current [facility] thodist 00:00:00 00:00:00 non-drinker of alcohol (finding) Cigarettes smoked 2018-06-14 2018-06-[address] [facility] - current (pack per 00:00:00 00:00:00 Medical Center day) - Reported Cigarette 2018-06-14 2018-06-[address] [facility] - pack-years 00:00:00 00:00:00 Medical Center History SDOH 2018-06-10 2018-06-[address] [facility] - Alcohol Frequency 00:00:00 00:00:00 [facility] Alcohol Comment 2015-12-05 2015-12-05 stopped 2005 Midnight [facility] 00:00:00 00:00:00 Smoking Status Start Date Stop Date Source Former smoker 2019-09-12 00:00:00 2019-09-12 00:00:00 Midnight [facility] Medications Ordered Filled Start Stop Current Ordering Indication Dosage Frequency Signature Comments Components Source Medication Medication Date Date Medication? Clinician (SIG) Name Name Negro Piersonera Yes Refugio [address] 4-17 [facility] 00[facility] albuterol Yes 2{puff} Q4H Inhale 2 [place] (PROAIR 2-25 puffs Methodi HFA,PROVENT 12:57: every 4 st [place] 52 (four) HFA,VENTOLI hours as N HFA) 90 needed for mcg/actuati wheezing on inhaler or shortness of breath. cholecalcif Yes 2000U QD Take 2,000 Bhakta loreto, [...] or fever). Lactobacill 2020-0 2020- No 1{tbl} Q.[id number] Take 1 Bhakta us -14 14 [id number] tablet by Met britney Urias 15:42: 00:[address] ulgar 07 :00 (three) (FLORANEX) times a 1 million day. cell tablet turmeric Yes QD Take by [facility] 400 mg Cap 9-25 mouth [facility] - 14:07: daily. Medical 50 Center omega-3 2018- Yes 1g QD Take [address] fatty 9-25 by mouth [facility] - acids-fish 14:07: daily. Medic al oil 50 Call 340-1,000 mg Cap per capsule citalopram Yes 40mg QD Take [address] (CELEXA) 40 9-25 by mouth Luke s - MG tablet 14:07: daily. Medica l 50 Call montelukast Yes 10mg QD Take [address] (SINGULAIR) 9-25 by mouth Luke s - 10 mg 14:07: nightly. Medical tablet 50 Call guaiFENesin Yes 1200mg QD Take 1,[address] (MUCINEX) 9-25 mg by [facility]ukes - 600 mg 12 14:07: mouth Medical hr tablet 50 daily. Call glucosamine Yes QD Take by [facility] sulfate 9-25 mouth [facility]ukes - (GLUCOSAMIN 14:07: daily. Medi sanya E) 500 mg 50 Center Tab albuterol Yes 2{puff} Inhale [address] HFA (PROAIR 9-25 puffs by Luke s - HFA) 90 14:07: mouth via Medic al mcg/actuati 50 inhaler Cente r on inhaler every 4 (four) hours as needed for Wheezing. albuterol Yes 1{ampul Q.5D Take [address] (ACCUNEB) 9-25 e} ampule by Lukes - 1.25 mg/3 14:07: nebulizati Me dical mL 50 on 2 (two) Center nebulizer times solution daily. acyclovir Yes 200mg Q.5D Take [address] (ZOVIRAX) 9-25 mg by [facility]ukes - 200 MG 14:07: mouth 2 Medical capsule 50 (two) Center times daily. cholecalcif Yes 2000U QD Take 2,[address] loreto, 9-25 Units by Lukes - vitamin D3, 14:07: mouth Medic al (VITAMIN 50 daily . Center D3) 1,000 unit capsule tiotropium Yes QD Inhale by [facility] bromide 9-25 mouth via Lukes - (SPIRIVA 14:07: inhaler Medica l RESPIMAT) 50 every Center 2.5 morning. mcg/actuati on Mist budesonide- Yes 2{puff} Q.5D Inhale [address] formoterol 9-25 puffs by Lukes - (SYMBICORT) 14:07: mouth via M edical 80-4.5 50 inhaler 2 Center mcg/actuati (two) on inhaler times daily. ALPRAZolam Yes .5mg Take 0.[address] (XANAX) 0.5 9-25 mg by Lukes - MG tablet 14:07: mouth as Medi sanya 50 needed for Center Anxiety. glucosamine Yes 1{tbl} Q.[id number] Take [address] -chondroiti 9-25 [id number] tablet by [facility]ukes - n 500-400 14:07: 3D mouth 3 Medic al mg tablet 50 (three) Center times daily. denosumab Yes 60mg Inject [address] (PROLIA) 60 9-25 mg Lukes - mg/mL Syrg 14:07: subcutaneo M edical 50 usly every Center 6 (six) months. ambrisentan Yes 10mg QD Take [address] (LETAIRIS) 9-25 by mouth Lukes - 10 MG 14:07: daily. Medical tablet 50 Call acyclovir 2020- No Herpes TAKE 1 Marybel ston (ZOVIRAX) 01-03 infection CAPSULE BY Methodi 200 MG 00:00: 00:[address] capsule 00 :00 TIMES A DAY denosumab 2017-06 2020- No Osteoporosi 60mg Q180D Bhakta (PROLIA) 07-11 s, Methodi syringe 60 10:30: 22:[address] mg 00 :29 moris diclofenac 2017-06 2020- No Q.5D Apply [place] on (VOLTAREN) 0-15 07-12 topically Met hodi 1 % gel 00:00: 00:00 2 (two) st 00 :00 times a day. montelukast 2016-0 Yes 10mg QD Take 10 mg Bhakta (SINGULAIR) 7-30 by mouth Meth haydee 10 mg 00:00: nightly. st tablet 00 ALPRAZolam Yes .5mg Q.[id number] Take 0.5 Bhakta (XANAX) 0.5 7-29 [id number] mg by M ethodi MG tablet 00:00: [...] St Crawford directed [facility] Nasonex Nasonex Yes Refugio [address] [facility] in each [facility] - nostril [facility]ics [place] 3 [place] 3 Yes Refugio [address] [facility] ProAir HFA ProAir HFA Yes Refugio [address] [facility] needed [facility] Albuterol Albuterol Yes Refugio [address] Sulfate Sulfate Crawford needed [facility] Questran Questran Yes Refugio [address] [facility] mixed with Lukes - water or Memoria non-carbon l ated drink Outpsychiatric ent Clinics Xanax Xanax Yes Refugio [address] [facility] Letairis Letairis Yes Refugio [address] [facility] Glucosamine Glucosamine Yes Refugio [address] [facility] with a [facility] - meal [facility] Vitamin D Vitamin D Yes Refugio [address] [facility] Citalopram Citalopram Yes Refugio [address] Hydrobromid Hydrobromid [facility] e [facility] Claritin Claritin Yes Refugio [address] [facility] Mucinex Mucinex Yes Refugio [address] Maximum Maximum Crawford as needed Tonia es - Strength Strength Memoria l Outpati ent Clinics Acyclovir Acyclovir Yes Refugio [address] [facility] Montelukast Montelukast Yes Refugio TAKE [address] Sodium Sodium Crawford TABLET BY [facility]ukes - MOUTH ONCE Memoria A DAY IN l THE Outpati EVENING ent Clinics Trelegy Trelegy Yes Refugio 1 puff [facility] Ellipta Ellipta [facility] Tumersaid Tumersaid Yes Refugio as [facility] directed [facility] Tadalafil Tadalafil Yes Refugio 1 tablet ( [facility] 2 MG) [facility] Ambrisentan Ambrisentan Yes Refugio [address] [facility] Proventil Proventil Yes Refugio [address] HFA HFA Crawford needed [facility] Celexa Celexa Yes Refugio TAKE [address] [facility] TABLET BY [facility] - MOUTH ONCE Memoria DAILY l Outpati ent Clinics Immunizations Ordered Filled Immunization Date Status Comments [facility] e Immunization Name Name Prevnar 13 Prevnar 13 2019-05-[address] [facility] - -Pneumonia Vaccine -Pneumonia Vaccine 00:00:00 [facility] FLUZONE QUAD PF 2017-03-18 Completed [facility] ethodist 00:00:00 Vital Signs Vital Name Observation Time Observation Value Comments Source Systolic blood 2019-08-23 12:31:00 95 mm[Hg] Tasha lilly Anglican pressure Diastolic blood 2019-08-23 12:31:00 46 mm[Hg] Umberto savage Anglican pressure Heart rate 2019-08-23 12:31:00 90 /min Yony Lundberg Respiratory rate 2019-08-23 12:31:00 26 /min Stephanie Lundberg Oxygen saturation in 2019-08-23 12:31:00 98 /min Yony Lundberg Arterial blood by Pulse oximetry Body temperature 2019-08-23 11:39:00 36.5 Chelsey [place] Anglican Body height 2019-08-23 07:36:00 144.8 cm Yony Lundberg Body weight 2019-08-23 07:36:00 36.94 kg Yony Lundberg BMI 2019-08-23 07:36:00 17.62 kg/m2 Yony Lundberg Procedures Procedure Date / Time Performing Clinician Source Performed SARS-COV2/RT-PCR ([facility] & 2020-02-02 12:25:[address] [facility] REF [facility] SARS-COV2/RT-PCR ([facility] & 2019-11-24 00:25:[address] [facility] SARS-COV2/RT-PCR ([facility] & 2019-11-07 16:39:[address] [facility] CV RIGHT HEART CATH 2019-08-23 11:16:44 Lopez Luz Jamalusarahyin HC COMPLETE BLD COUNT 2019-08-23 08:10:00 Lopez Luz on Anglican W/AUTO DIFF Ruslanlusarahyin ESTIMATED GFR 2019-08-23 08:09:00 Lopez Luz Met hodnishant Mercerlusarahyin POC PANEL 2019-08-23 08:09:00 Lopez Luz Met rosita Garcia HC COMPLETE BLD COUNT 2019-07-15 05:05:00 Jean Pro W/AUTO DIFF BASIC METABOLIC PANEL 2019-07-15 05:05:00 Jean Pro MAGNESIUM LEVEL 2019-07-15 05:05:00 Jean Pro PHOSPHORUS LEVEL 2019-07-15 05:05:00 Welch, Bishop savage Anglican ESTIMATED GFR 2019-07-15 05:05:00 Welch, Bishop lilly Anglican CT CHEST WO CONTRAST 2019-07-14 15:27:13 Welch, Bishop landaverde Anglican CT SOFT TISSUE NECK WO 2019-07-14 15:26:55 Welch, Bishop Palmerist CONTRAST PARTIAL THROMBOPLASTIN 2019-07-14 07:00:00 Marsh, Irwin Tan Midnight [facility] TIME (PTT) HC COMPLETE BLD COUNT 2019-07-14 06:47:00 Jean Pro Anglican W/AUTO DIFF BASIC METABOLIC PANEL 2019-07-14 06:47:00 Jean Pro Anglican ESTIMATED GFR 2019-07-14 06:47:00 Thor Feng Me thodist PROTHROMBIN TIME WITH INR 2019-07-14 06:47:00 Marsh, Irwin Moris eem Midnight [facility] PARTIAL THROMBOPLASTIN 2019-07-14 06:47:00 Marsh, Irwin Tan Midnight [facility] TIME (PTT) SPUTUM CULTURE 2019-07-13 16:30:00 Thor Feng Me thodist GRAM STAIN 2019-07-13 16:30:00 Thor Feng Me thodist POC GLUCOSE 2019-07-13 12:33:00 Thor Feng Me thodist TTE COMPLETE, WO 2019-07-13 08:40:00 Bert Jane Met hodist CONTRAST, W DOPPLER ([id number]) POC GLUCOSE 2019-07-13 07:48:00 Thor Feng Me thodist HC COMPLETE BLD COUNT 2019-07-13 05:30:00 LucindaBert gallagher n Anglican W/AUTO DIFF COMPREHENSIVE METABOLIC 2019-07-13 05:30:00 Bert Jane Anglican PANEL B NATRIURETIC PEPTIDE 2019-07-13 05:30:00 Bert Janeto n Anglican LACTIC ACID LEVEL 2019-07-13 05:30:00 LucindaBert gallagher Me thodist THYROID STIMULATING 2019-07-13 05:30:00 Bert Jane Anglican HORMONE ESTIMATED GFR 2019-07-13 05:30:00 Thor Feng Me thodist POC GLUCOSE 2019-07-13 04:49:00 Thor Feng Me thodist POC GLUCOSE 2019-07-13 01:47:00 FengThor vegas Bhakta Me thodist TROPONIN 2019-07-12 22:08:00 [facility] Yony Lundberg ARTERIAL BLOOD GAS 2019-07-12 21:12:00 Jordan Craig URINE CULTURE 2019-07-12 18:15:00 Jordan Craig Me thodist URINALYSIS SCREEN AND 2019-07-12 18:08:00 Jordan Craig MICROSCOPY, WITH REFLEX TO CULTURE TROPONIN 2019-07-12 18:08:00 [facility] Yony Lundberg LACTIC ACID LEVEL 2019-07-12 18:08:00 Jordan Craig RESPIRATORY PATHOGEN 2019-07-12 16:56:00 Jordan Craig on Anglican PANEL XR CHEST 1 VW PORTABLE 2019-07-12 16:15:36 Jordan Craig BLOOD CULTURE, AEROBIC & 2019-07-12 15:31:00 Jordan Craig ANAEROBIC LACTIC ACID LEVEL 2019-07-12 15:30:00 Jordan Craig ARTERIAL BLOOD GAS 2019-07-12 15:30:00 Jordan Craig ECG ED PRELIMINARY 2019-07-12 15:12:18 Jordan Craig INTERPRETATION HC COMPLETE BLD COUNT 2019-07-12 14:55:00 [facility] Norma Lundberg W/AUTO DIFF COMPREHENSIVE METABOLIC 2019-07-12 14:55:00 [facility]ony Lund[facility] PANEL TROPONIN 2019-07-12 14:55:00 Mel Fengh Judy Yony Lundberg B NATRIURETIC PEPTIDE 2019-07-12 14:55:00 [facility] Norma Lundberg ESTIMATED GFR 2019-07-12 14:55:00 [facility] ECG 12-LEAD 2019-07-12 14:47:59 [facility] Yony Lundberg Plan of Care Planned Activity Planned Date Details Comments Source Future Scheduled 2020-02-28 INFLUENZA VACCINE (#1) [facility] 00:00:00 [code = INFLUENZA Medical Ce nter VACCINE (#1)] Future Scheduled 2020-01-28 INFLUENZA VACCINE [place] [facility] Test 00:00:00 [code = INFLUENZA VACCINE] Future Scheduled 2008-12-23 PNEUMOCOCCAL 65+ YRS [facility] - Test 00:00:00 (1 of 1 - Medical Center [id number] PCV13) [code = PNEUMOCOCCAL 65+ YRS (1 of 1 - [id number] PCV13)] Future Scheduled 2008-12-23 65+ PNEUMOCOCCAL Bhakta [facility] Test 00:00:00 VACCINE (1 of 1 - PPSV23) [code = 65+ PNEUMOCOCCAL VACCINE (1 of 1 - PPSV23)] Future Scheduled 2002-11-[address] [facility] - Test 00:00:00 WELLNESS (YEAR 2 or Medical Center FIRST YEAR if no IPPE) [code = MEDICARE ANNUAL WELLNESS (YEAR 2 or FIRST YEAR if no IPPE)] Future Scheduled 1993-12-23 COLONOSCOPY SCREENING [place] [facility] Test 00:00:00 [code = COLONOSCOPY SCREENING] Future Scheduled 1993-12-23 SHINGLES VACCINES (#1) [place] [facility] Test 00:00:00 [code = SHINGLES VACCINES (#1)] Encounters Start End Encounter Admission Attending Care Care Encounter Source Date/Time Date/Time Type Type Clinicians Facility Department ID 2020-05-02 2020-05-02 Outpatient [facility] [id number] [facility] 2020-04-04 2020-04-04 [id number] 2020-03-20 2020-03-20 [facility] [id number] [facility] 2020-02-08 2020-02-08 Outpatient Inna Brown [id number] [address] 10:15:00 10:15:00 [email or web address] [place] [employer] [facility] Outpati ent Clinics 2020-01-27 2020-01-27 [facility] [id number] 11:45:00 11:45:00 [place] [employer] [place] - Drive [facility] Medicine l Medicine Outpati ent Clinics 2020-01-10 2020-01-10 [facility] [id number] 13:00:00 13:00:00 [place] [employer] s - Drive [facility] Medicine l Medicine Outpati ent Clinics 2020-01-02 2020-01-02 [facility] [id number] 16:56:00 16:56:00 [place] [employer] s - Fifteen Reasons [facility] Medicine l Medicine Outpati ent Clinics 2019-12-28 2019-12-28 [facility] [id number] 11:00:00 11:00:00 t [place] [employer]pwholesale s - Drive [facility] l Medicine Outpati ent Clinics 2019-12-28 2019-12-28 [facility] [id number] 11:00:00 11:00:00 t [place] [employer] [facility] Medicine l Medicine Outpati ent Clinics 2019-11-14 2019-11-14 [facility] [id number] 10:45:00 10:45:00 [place] [employer] s - Fifteen Reasons [facility] Medicine l Medicine Outpati ent Clinics 2019-10-31 2019-10-31 [facility] [id number] 10:54:00 10:54:00 t [place] [employer] [facility] Medicine l Medicine Outpati ent Clinics 2019-10-14 2019-10-14 [facility] [id number] [facility] 09:59:00 09:59:00 [place] [employer] [facility] Medicine l Medicine Outpati ent Clinics 2019-09-29 2019-09-29 [facility] [id number] 14:30:00 14:30:00 t [place] Jpwholesale s - Drive [facility] Medicine l Medicine Outpati ent Clinics 2019-09-22 2019-09-22 [facility] [id number] 16:54:00 16:54:00 [place] [employer] s - Fifteen Reasons [facility] Medicine l Medicine Outpati ent Clinics 2019-08-23 2019-08-23 Outpatient SUKH [facility] [id number] Midnight 00:00:00 00:00:00 LOPEZ [address] 2019-08-16 2019-08-16 [facility] [id number] 09:30:00 09:30:00 t [place] [employer] [facility] Medicine Outpati ent Clinics 2019-07-21 2019-07-21 [facility] [id number] 08:00:00 08:00:00 t [place] Jpwholesale s [employer] [facility] Medicine Outpati ent Clinics 2019-07-12 2019-07-15 Inpatient JUNG [facility] [id number] Midnight 00:00:00 00:00:00 THOR [address] 2019-06-30 2019-06-30 [facility] [id number] 13:00:00 13:00:00 t [place] [employer] [facility] Medicine Outpati ent Clinics 2019-06-27 2019-06-27 [facility] [id number] 09:57:00 09:57:00 t Fangdd [facility] Medicine Outpati ent Clinics 2019-05-11 2019-05-11 [facility] [id number] 11:15:00 11:15:00 t Fangdd [facility] Medicine Outpati ent Clinics 2019-04-19 2019-04-19 Outpatient KAYE [facility] [id number] Midnight 00:00:00 00:00:00 MAKEDA [address] 2019-04-19 2019-04-19 Outpatient KAYE [facility] [id number] Midnight 00:00:00 00:00:00 MAKEDA [address] 2019-04-11 2019-04-11 [facility] [id number] [facility] 13:15:00 13:15:00 t [place] [employer] [facility] Medicine Outpati ent Clinics 2019-03-28 2019-03-28 [facility] [id number] 14:30:00 14:30:00 [place] Fifteen Reasons Luke s - Drive [facility] Medicine l Medicine Outpati ent Clinics 2019-03-08 2019-03-08 [facility] [id number] 10:45:00 10:45:00 t [place] [address] LuChicory s - Drive [facility] Medicine l Medicine Outpati ent Clinics 2019-02-18 2019-02-18 [facility] [id number] 10:42:00 10:42:00 [place] Fifteen Reasons LuChicory s - Drive [facility] Medicine l Medicine Outpati ent Clinics 2019-01-25 2019-01-25 [facility] [id number] 10:00:00 10:00:00 [place] [employer] s - Drive [facility] l Medicine Outpati ent Clinics 2019-01-05 2019-01-05 [facility] [id number] 11:44:00 11:44:00 [place] [employer] s - Drive [facility] Medicine Medicine Outpati ent Clinics 2018-10-27 2018-10-27 [facility] [id number] 10:15:00 10:15:00 [place] [employer] s - Drive [facility] Medicine l Medicine Outpati ent Clinics 2018-09-13 2018-09-13 [facility] [id number] 10:00:00 10:00:00 [place] [employer] s - Drive [facility] Medicine l Medicine Outpati ent Clinics 2018-08-11 2018-08-11 [facility] [id number] 10:00:00 10:00:00 [place] [employer] s - Drive [facility] Medicine l Medicine Outpati ent Clinics 2018-07-19 2018-07-19 [facility] [id number] 09:15:00 09:15:00 [place] [employer] s - Drive [facility] Medicine l Medicine Outpati ent Clinics 2018-06-07 2018-06-07 [facility] [id number] 08:00:00 08:00:00 [place] [employer] s - Drive [facility] Medicine l Medicine Outpati ent Clinics 2018-02-26 2018-02-26 [facility] [id number] 09:30:00 09:30:00 t [place] [address] Luke s - Drive [facility] Medicine Outpati ent Clinics 2018-01-08 2018-01-08 [facility] [id number] 10:30:00 10:30:00 [place] [address] Luke s - Drive [facility] Outpati ent Clinics 2017-12-09 2017-12-09 [facility] [id number] 11:06:00 11:06:00 [place] [address] Luke s - Drive [facility] Medicine Outpati ent Clinics 2017-12-09 2017-12-09 [facility] [id number] 10:15:00 10:15:00 t [place] [address] Luke s - Drive [facility] Medicine Outpati ent Clinics 2017-11-18 2017-11-18 [facility] [id number] 10:32:00 10:32:00 t [place] [address] Luke s - Drive [facility] Outpati ent Clinics 2017-11-18 2017-11-18 [facility] [id number] 09:00:00 09:00:[address] [place] [address] [place] [address] [place] [address] - Drive [facility] 2017-09-30 2017-09-30 [facility] [id number] 10:30:00 10:30:00 [place] [address] s - Drive [facility] Out[facility]ics Results Test Description Test Time Test Comments Results Result Comments Source SARS-CoV2/RT-PCR ([facility]) 2020-02-03 01:04:00 Test Item Value Reference Range Interpretation Comme nts SARS-COV2/RT-PCR (test code = Negative Not Detected, 34280-9) Negative, See external report for linked test SARS-COV-[address] [facility] KAIA (test code = 78702-0) TATA (test code = TATA) Negative result for this test determines that SARS-CoV-2 RNA was not present in the [...] of the Act. Fact Sheet for Healthcare Providers:https://www.Delver/sites/default/files/produ ct/documents/Fact_Sheet_HC_Pr dioehvx_Wltq_WDTG-IaC-7.pdf Fact Sheet for Healthcare Patients:https://www.[employer].Familybuilder om/sites/default/files/produc t/documents/Fact_Sheet_Patien dr_Micw_LLGL-CcN-4.pdf Performing Laboratory:[facility] [place] [address] [facility] ([facility])2020-02-03 01:04:00 Test Item Value Reference Range Interpretation Comments SARS-COV2/RT-PCR (test Negative Not Detected, Negative, code = 2299646) See external report for linked test SARS-COV-[address] [facility] KAIA (test code = 3691779) Negative result for this test determines that SARS-CoV-2 RNA was not present in the specimen above the Limit of Detection (LOD). However, Negative results do not preclude SARS-CoV-2 infection and should not be used as the sole basis for treatment or patient management decisions. Negative results mustbe combined with clinical observations, patient history, and epidemiological information. A false negative result may occur if a specimen is improperly collected, transported or handled. A false negative result should be considered if patient's recent exposures or clinical presentation indicate that COVID-19 (SARS-CoV-2) is likely and diagnostic tests for other causes of illness are negative. Re-testing should be considered in cases of suspected false negatives.The limit of detection for this assay is 800 copies/mL.This SARS CoV-2 test is a real-time RT-PCR test intended for the qualitative detection of nucleic acid from SARS-CoV-2 in a nasopharyngeal swab specimen collected from individuals susp ected of COVID-19 by their healthcare provider.This test [...] 564(g) of the Act.Fact Sheet for Healthcare Providers:https://www.[employer]./sites/default/files/product/documents/Fact_Shee x_LH_Jdvvuqtpr_Cknw_PSJF-OcG-5.pdfFact Sheet for Healthcare Patients:https://www.[employer].com/sites/default/files/product/ documents/Uzcp_Kldlt_Rovyaeez_Ejco_OGDP-JhD-3.pdfPerforming Laboratory:[facility], [place] [address]GVFW-QGT4/RT-PCR ([facility])2019-11-24 06:46:00 Test Item Value Reference Range Interpretation Comments SARS-COV2/RT-PCR (test Not Detected Not Detected, Negative code = 7654478) SARS-COV-[address] [facility] (test code = 7785779) Negative results do not preclude SARS-CoV-2 infection [...] of the Act.Fact Sheet for Healthcare Pro viders:https://www.Bottomline Technologies.[employer]./Documents/Xpert%20Xpress%20SARS%20CoV-2/Fact%20Sh eets/302-3802%47KTCG-KGB-0%20HEALTHCARE%20PROVIDERS%20FACT%20SHEET.pdfFact Sheet for Healthcare Patients:https://www.GinzaMetrics/Documents/Xpert%20Xpress%20SARS%20CoV-2/Fact%20Sheets/302-3801%20SARS-COV -2%20PATIENT%20FACT%20SHEET.pdfPerforming Laboratory:[facility], [place] [address]FTUS-LHA1/RT-PCR ([facility]) 2019-11-07 23:10:00 Test Item Value Reference Range Interpretation Comments SARS-COV2/RT-PCR (test Not Detected Not Detected, Negative code = 3332307) SARS-COV-2 [facility] ([facility] code = 7323410) Negative results do not preclude SARS-CoV-2 infection [...] of the Act.Fact Sheet for Healthcare Pro viders:https://www.Geniuzz/Documents/Xpert%20Xpress%20SARS%20CoV-2/Fact%20Sh eets/302-3802%10QSCY-OIM-5%20HEALTHCARE%20PROVIDERS%20FACT%20SHEET.pdfFact Sheet for Healthcare Patients:https://www.GinzaMetrics/Documents/Xpert%20Xpress%20SARS%20CoV-2/Fact%20Sheets/302-3801%20SARS-COV -2%20PATIENT%20FACT%20SHEET.pdfPerforming Laboratory:[facility] [place], [place] [address]khai.[place], [place] [address]Bwcf lab snvephfsh9397-15-10 15:34:41 INTERVENTIONAL CARDIOLOGY PROCEDURE NOTE[ Lopez Luz MD | Kari Carmona MD | Cullen Edwards MD ] PATIENT: Seema Romo MR#: [id number], : 1945 DATE OF SERVICE: 08/23/2019 Pre-Procedure Diagnosis: Pulmonary HTN Post-Procedure Diagnosis: moderate Pulm HTN Procedure Performed: - Right heart catheterization (RHC)- Ultrasound access: RIJ- Monitoring under moderate sedation for 45 minutesPrimary Optical Instrument Assembler: Sukh Anesthesia/Sedation: Moderate Sedation (IV Versed and [...] call if questions arise. Lopez Luz MD [facility] FSCAIClinical and Interventional CardiologyOffice: ; Answering Service: Pager: [phone] MethodistCR[facility] with platelet and qmogcuqasdqf6065-42-38 08:55:13 Test Item Value Reference Range Interpretation Comments WBC (test code = 35008-7) 7.49 4.50- 11.00 k/uL RBC (test code = 73427-1) 3.94 m/uL 4.2-5.5 L HGB (test code = 718-7) 11.9 g/dL 12-16 L HCT (test code = 4544-3) 37.4 % 37-47 MCV (test code = 787-2) 94.9 fL 82-100 MCH (test code = 785-6) 30.2 pg 27-34 MCHC (test code = 786-4) 31.8 g/dL 31-37 RDW - SD (test code = 49.2 fL 37-55 86374-2) MPV (test code = 07692-2) 9.8 fL 8.8-13.2 Platelet count (test code 233 150- 400 k/uL = 78473-6) Nucleated RBC (test code 0.00 /100 WBC = 46306-9) Neutrophils (test code = 50.9 % 39-69 25920-1) Lymphocytes (test code = 32.2 % 25-45 71534-2) Monocytes (test code = 11.7 % 0-10 H 56048-2) Eosinophils (test code = 3.2 % 0-5 77132-6) Basophils (test code = 1.7 % 0-1 H 84075-8) Immature granulocytes 0.3 % 0-1 "Immat ure (test code = 12738-1) granul ocytes" (promyelocytes, myelocytes, metamyelocytes) Lab Interpretation (test Abnormal code = 87536-9) Yony MethodistPOC uaoxt0855-52-37 08:14:26 Test Item Value Reference Range Interpretation Comments POC sodium (test code 141 mmol/L 135-148 = 2947-0) POC potassium (test 4.2 mmol/L 3.5-5 code = 6298-4) POC chloride (test 102 mmol/L 99-109 code = 2069-3) POC CO2 (test code = 31 mmol/L 24-31 50235-5) POC glucose (test 91 mg/dL 65-99 code = 2339-0) POC BUN (test code = 9 mg/dL 8-24 6299-2) POC creatinine (test 0.6 mg/dl 0.5-0.9 code = 18698-1) POC hematocrit (test 39 % 37-47 code = 4544-3) POC anion gap (test 13 mmol/L 8-20 Optical Instrument Assembler Name: Pacres code = 0903226) NenitaDevice ID: [id number] Yony MethodistEstimated [id number] 08:14:26 Test Item Value Reference Range Interpretation Comments Estimated GFR (test 89 mL/min/1.73 m2 Caterg ory Units code = 00781-6) Interpretati onG1 >=90 Normal or highG2 60-89 Mildly ofyclbtfaN2x 45-59 Mildly to mode rately saakkjazaL3f 30-44 Moderately to severely decreasedG4 15-29 Severely decre asedG5 <15 Kidn ey failureThe eGFR was calculated steffi lujan the Chronic Kidney Disease Epidemiology Co llaboration (CKD-EPI) equat ion. Interpretation is based on recommendations of the National Kidney Foundation-Kidn ey Disease Outcomes Qualit y Initiative (NKF-KDOQI) pub lished in 2014. Yony MethodistBlood culture, aerobic & ngvzfqhkz9646-99-51 19:33:07 Test Item Value Reference Range Interpretation Comments Blood culture No growth Specimen isolate (test after 5 days InformationSpe cimen code = 600-7) of Source: BloodS pecimen incubation. Site: Antecubit al Left [place] MethodistSputum itagwva9166-10-21 09:59:50 Test Item Value Reference Range Interpretation Comments Sputum culture Normal oral Specimen isolate (test yenni InformationSpe [facility] for incurablesen code = 2234) isolated. Source: SputumS pecimen Site: Expectora joanna [place] MethodistBasic metabolic tmaak2764-38-29 07:10:18 Test Item Value Reference Range Interpretation Comments Sodium (test code = 2951-2) 142 135- 148 mEq/L Potassium (test code = 2823-3) 4.7 3.5- 5.0 mEq/L Chloride (test code = 2075-0) 107 98- 112 mEq/L CO2 (test code = 8-9) 28 24- 31 mEq/L Anion gap (test code = 65297-8) 7@ANIO 7- 15 mEq/L BUN (test code = 3094-0) 10 mg/dL 8-23 Creatinine (test code = 2160-0) 0.70 mg/dL 0.5-0.9 Glucose (test code = 2345-7) 91 mg/dL 65-99 Calcium (test code = 14514-4) 8.8 mg/dL 8.8-10.2 [place] MethodistMagnesium tcgmn6484-19-28 07:10:18 Test Item Value Reference Range Interpretation Comments Magnesium (test code = 82505-5) 2.1 mg/dL 1.6-2.4 [place] MethodistPhosphorus aosta9694-84-79 07:10:18 Test Item Value Reference Range Interpretation Comments Phosphorus (test code = 2777-1) 3.4 mg/dL 2.4-4.5 [place] MethodistPartial thromboplastin time, dhzyxpncz6998-22-86 00:23:33 Test Item Value Reference Range Interpretation Comments PTT (test code = 32.2 23.0- 36.0 [place] [address]-8) unfractionated heparin is61.0-112.0 se conds which corresponds to Anti-Xa0.3-0.7 U/ml. [place] MethodistCT Soft Tissue Neck Wo Pgkoqpmm2605-40-44 16:29:03Hm Interface, Radiology Results - 07/14/2019 4:32 PM CSTEXAMINATION: CT SOFT TISSUE [...] the left hyoid bone, compatible with ectopic thyroid.[id number] and approved by college president/fellow: Real Chilel, Dimitri Forte MD, personally reviewed the images and resident's/fellow's findings and agree with the final report.[facility] Chest Wo Zqoufkpu3138-50-83 15:50:42Hm Interface, Radiology Results 07/14/2019 3:53 PM [...] the upper abdomen do not demonstrate any masses.[facility]-3PA94618QCHdoszwi MethodistGram stain 2019-07-14 15:37:25Gram stain isolateFew WBC'sFew Gram positive cocci in clustersMany Gram positive cocci in chains Comment: Specimen InformationSpecimen Source: SputumSpecimen Site: Expectorated [facility] MethodistProthrombin time with CND9902-72-05 08:05:32 Test Item Value Reference Range Interpretation Comments Prothrombin time 12.7 11.5- 14.5 sec (test code = 5902-2) INR (test code = 1.0 [facility] 0[facility]-9) Normalized Rati o (INR) is a therapeutic monitoring tool for patients who ar e stable on oral anticoagulant therapy. An INR of 2.0-3.0 is sugg ested for deep vein thrombosis/pulm onary embolism. TATA (test code = PTT added and TATA) read back to Malissa Reyes in [facility] 07/14/2019 06:59 LMID. [facility] htlzuat9462-29-45 12:38:37 Test Item Value Reference Range Interpretation Comments POC glucose (test 82 mg/dL 65-99 Optical Instrument Assembler N deb: Karel code = 85103-9) Kyle ulrich ID: [id number] able: [facility] Notified JOLEEN Bhakta MethodistEchocardiogram complete w contrast and 3D if mnsetr6895-76-18 09:14:00Interface, Radiology Results In - 07/13/2019 9:15 AM GUEST RELATIONS OFFICER Echocardiography Report [address] [place] [address] Pat.Name: SEEMA ROOM Pat.ID: [id number].Date: 07/13/2019 Refer.MD: THOR FENG MDExmaribel Time: 6:18:00 AM Study Type:Routine Echo Height: 57in Weight: 81lb BSA: 1.23 m2 Age: 6 1945,73Y Sex: FEMALE BP: 85/49 HR: 73 bpm Sonogrphr: Mart Meek. Stat.:Inpatient Room: WNJB478-70 Study Status:Final Echo Event ID:[id number] Order ID: [id number] Reason for Study:H/o Pulmonary hypertension, RA pressures, [...] RAP of 5 mmHg. MEASUREMENTS: 2DParasternal Long Steward Ao An 2 cm LVPWd 0.74 cm [...] Signed 07/13/2019 09:14 Tracy Conrad MethodistThyroid stimulating brpzjzm6658-34-50 06:19:46 Test Item Value Reference Range Interpretation Comments TSH (test code = 3016-3) 0.51 0.27- 4.20 uIU/mL Yony LundbergB natriuretic pgsiedf5213-45-23 06:10:03 Test Item Value Reference Range Interpretation Comments BNP (test code = 10026-8) 153 pg/mL 0-100 H Lab Interpretation (test code = Abnormal 31236-9) Yony LundbergComprehensive metabolic qcndk6606-20-01 06:09:51 Test Item Value Reference Range Interpretation Comments Sodium (test code = 140 135- 148 mEq/L 2951-2) Potassium (test code = 4.5 3.5- 5.0 mEq/L 2823-3) Chloride (test code = 106 98- 112 mEq/L 5-0) CO2 (test code = 2027-9) 24 24- 31 mEq/L Anion gap (test code = 10@ANIO 7- 15 mEq/L 85603-0) BUN (test code = 3094-0) 14 mg/dL 8-23 Creatinine (test code = 0.67 mg/dL 0.5-0.9 2160-0) Glucose (test code = 143 mg/dL 65-99 H 2345-7) Calcium (test code = 8.5 mg/dL 8.8-10.2 L 02227-5) Protein (test code = 6.3 g/dL 6.3-8.3 [place] 9994.6-7.0 2885-2) g/dL1 vijc3372.4-7.6 g/dL7 months-9wgtg066 .1- 7.3 g/dL1-2 rqryd661.6-7.5 g/dL>3 qyxbq346.0-8.0 g/rS04-6062193. 3-8 .3 g/dL Albumin (test code = 3.0 g/dL 3.5-5 L 1751-7) A/G ratio (test code = 0.9 0.7-3.8 1759-0) Alkaline phosphatase 78 U/L 35-104 (test code = 6768-6) AST (test code = 1920-8) 14 U/L 10-35 ALT (test code = 1742-6) 19 U/L 5-50 Total bilirubin (test <0.2 0-1.2 code = 1974-) Lab Interpretation (test Abnormal code = 18639-3) [place]night MethodistLactic acid reszb5800-53-56 06:05:57 Test Item Value Reference Range Interpretation Comments Lactic acid (test code = 13830-2) 1.0 mmol/L 0.5-2.2 [place] NgbmkrgjzTqfnsjwn7463-70-31 22:52:33 Test Item Value Reference Range Interpretation Comments Troponin (test code 0.011 ng/mL 0-0.04 In patie nts suspected = 21892-1) of having a thien cardial infarction, ana [...] ss than 0.020 ng/mL Yony MethodistRespiratory pathogen vkxri3977-47-16 22:47:01 Test Item Value Reference Interpretation Comments Range Respiratory Positive for A Specimen pathogen panel Rhinovirus/Enterovirus-- I nformationSpecimen (test code = Neg Simona rce: 2148) ative for all other [facility] Site: pathogens Left tested:Negative for AdenovirusNegative for Coronavirus UVF3Qcovuyyf for Coronavirus XF92Fbbbjwpn for Coronavirus 229ENegative for Coronavirus QP86Xmwraoue for Human MetapneumovirusNegative for Influenza ANegative for Influenza A/Z7Qkpnwgtc for Influenza A/S3Hvkpdxdd for Influenza A/H1-2009Negative for Influenza BNegative for [...] assa Lab Abnormal Interpretation (test code = 75741-8) Bhakta MethodistArterial blood ynj0951-02-99 21:21:02 Test Item Value Reference Range Interpretation [...] 2708-6) Lab Interpretation (test code = Abnormal 24223-1) [place] MethodistUrinalysis screen and microscopy, with reflex to culture 2019-07-12 21:08:53 Test Item Value Reference Range Interpretation Comments Specimen site (test code = Clean catch 8251216) Color, UA (test code = 5778-6) Yellow Appearance, UA (test code = Clear 5767-9) Specific gravity, UA (test code = 1.019 1.001-1.035 5811-5) pH, UA (test code = 5803-2) 6.0 5.0-8.5 Protein, UA (test code = 48827-6) Negative Negative Glucose, UA (test code = 44006-3) Negative Negative Ketones, UA (test code = 2514-8) Negative Negative Bilirubin, UA (test code = Negative Negative 5770-3) Blood, UA (test code = 5794-3) Negative Negative Nitrite, UA (test code = 5802-4) Negative Negative Urobilinogen, UA (test code = <2.0 <2.0 28026-2) Leukocyte esterase, UA (test code Negative Negative = 5799-2) Epithelial cells, UA (test code = 1 /HPF 5787-7) WBC, UA (test code = 5821-4) <1 0- 4 /HPF RBC, UA (test code = 67796-9) <1 0- 5 /HPF Bacteria, UA (test code = Few None seen 22696-8) Yeast, UA (test code = 08469-6) None seen Yeast with pseudohyphae, UA (test None seen code = 94423-6) Hyaline casts, UA (test code = 4 /LPF 5796-8) Bhakta AnglicanUrine ahzufcm7294-22-19 18:40:41 Test Item Value Reference Range Interpretation Comments Urine culture (test SEE COMMENT Bacteriu jose screen code = 9302920) negative. [place] [facility] 12 oxqf7473-16-13 18:36:47 Test Item Value Reference Range Interpretation Comments Ventricular rate (test 111 code = 253) Atrial rate (test code = 111 255) MA interval (test code = 130 266) QRSD [...] available-Electronica lly Signed By Gracie Barragan MD ([id number]) on 07/12/2019 6:36:46 PM [place] [facility] 1 Vw Tqcmdyat9308-57-61 16:19:31Hm Interface, Radiology Results Incoming - 07/12/2019 4:22 PM CSTEXAMINATION: XR CHEST 1 VW PORTABLECLINICAL HISTORY: sobCOMPARISON: CT chest 08/09/2018. Chest radiograph 11/15/2017IMPRESSION:Prominent emphysematous changes are unchanged from the prior radiograph and better seen on prior CT. No focal consolidation or large pleural effusion.Normal cardiomediastinal silhouette.Interval angulated right sixth posterior rib fracture appears to be chronic, correlate with exam..[facility] ED Preliminary Interpretation - Not an Fnova8461-92-84 15:12:18 Test Item Value Reference Range Interpretation Comments TATA (test code = TATA) Jordan Craig MD 08/14/2019 9:51 [facility] ED Preliminary Interpretation - Not an OrderPerformed by: Jordan Craig MDAuthorized by: Jordan Craig MD ECG reviewed by ED Physician in the absence of a electric motor repairer: yes Interpretation: Interpretation: abnormal Rate: ECG rate: 111 ECG rate assessment: tachycardic Rhythm: Rhythm: sinus tachycardia QRS: QRS axis: Left QRS intervals: NormalST segments: ST segments: NormalComments: Poor baseline. Lab Interpretation Abnormal (test code = 23365-0) Yony MethodistSPUTUM CULTURE + GRAM [id number] 12:13:00 Test Item Value Reference Range Interpretation [...] 0-5 epithelial (BEAKER) (test code cells = 284889) GRAM STAIN RESULT No organisms seen (BEAKER) (test code = 196268) 4+ Normal respiratory yenni presentVANCOMYCIN LEVEL, [id number] 09:25:00 Test Item Value Reference Range Interpretation Comments VANCOMYCIN TROUGH (BEAKER) (test 11.9 ug/mL 10.0-20.0 code = 522) Please draw 30 min prior to scheduled dose.If vancomycin trough level > 20 mcg/mL, hold next vancomycin dose, and contact MD and pharmacist.CBC W/PLT COUNT & AUTO PTKKEZMIETDV2362-65-21 06:38:00 Test Item Value Reference Range Interpretation [...] (BEAKER) (test code = 2801) BASIC METABOLIC [id number] 05:44:00 Test Item Value Reference Range Interpretation [...] APPLICABLE FOR DIALYSIS PATIEN TS. BASIC METABOLIC [id number] 05:45:00 Test Item Value Reference Range Interpretation [...] PATIEN TS. CBC W/PLT COUNT & AUTO [id number] 05:39:00 Test Item Value Reference Range Interpretation [...] (BEAKER) (test code = 2801) RESPIRATORY PANEL [id number] 20:29:00 Test Item Value Reference Range Interpretation [...] sample was tested at the [facility] Molecular Diagnostics Laboratory using the ncyclo FilmArray Respiratory Panel. It is FDA cleared and has been verified and approved by the [facility] Molecular Diagnostics Laboratory for clinical use on nasopharyngeal swab specimens.The performance of the FilmArrayRP has not been established in individuals who received influenza vaccine. Recent administration ofa nasal influenza vaccine may cause false positive results for Influenza A and/orInfluenza B.VANCOMYCIN LEVEL, [id number] 10:07:00 Test Item Value Reference Range Interpretation Comments VANCOMYCIN TROUGH (BEAKER) (test 10.0 ug/mL 10.0-20.0 code = 522) Please draw 30 min prior to scheduled dose.If vancomycin trough level > 20 mcg/mL, hold next vancomycin dose, and contact MD and pharmacist.BASIC METABOLIC [id number] 07:57:00 Test Item Value Reference Range Interpretation [...] PATIEN TS. CBC W/PLT COUNT & AUTO [id number] 07:43:00 Test Item Value Reference Range Interpretation [...] = 2801) CBC W/PLT COUNT & AUTO [id number] 10:21:00 Test Item Value Reference Range Interpretation [...] detection limit of the test. LEGIONELLA ANTIGEN, [id number] 09:40:00 Test Item Value Reference Range Interpretation Comments L. PNEUMOPHILA Negative - see Negative fo r L. SEROGP 1 UR AG comment pneumophila (BEAKER) (test code serogrou p 1 antigen, = 1156) suggesting no r ecent or current infe ction with this serog roup. Legionellosis c annot be ruled out si nce other serogroup s and species may cau se disease. BASIC METABOLIC [id number] 08:58:00 Test Item Value Reference Range Interpretation [...] S NOT APPLICABLE FOR DIALYSIS PATIEN TS. [id number] 08:58:00 Test Item Value Reference Range Interpretation Comments CREATININE (BEAKER) 0.78 mg/dL 0.57-1.25 (test code = 358) EGFR (BEAKER) (test 72 mL/min/1.73 ESTIMA JOANNA GFR IS code = 1092) sq m NOT ACCURATE CREATININE CLEARANCE IN PREDICTING GLOMERULAR FILTRATION RATE . ESTIMATED GFR I S NOT APPLICABLE FOR DIALYSIS PATIEN TS. BASIC METABOLIC [id number] 07:10:00 Test Item Value Reference Range Interpretation [...] NOT APPLICABLE FOR DIALYSIS PATIEN TS. PROTHROMBIN TIME/[id number] 07:01:00 Test Item Value Reference Range Interpretation [...]
--- OUTSIDE RECORDS SUMMARY | 2020-05-16 13:50 | XMS REPORT ---
:1945 Author Organization [facility] Address [address] [place] [address] Care Team Providers Name Role Phone Crawford Unavailable [phone] PROBLEMS Type Condition ICD9-CM TEO92-DI Onset Condition SNOMED Code Notes Code Code Dates Status Problem Depression with F41.8 Active 001354814 anxiety Problem Shingles B02.9 Active 6743284 Problem Fatty liver K76.0 Active 968063183 Problem Seasonal J30.2 Active 160886278 allergies Problem Age-related M81.0 Active 672042363 osteoporosis without current pathological fracture Problem Secondary I27.21 Active 22852054 pulmonary arterial hypertension Problem Left thyroid E04.1 Active 711808368 nodule Problem Acute on chronic J96.20 Active 93677434 respiratory failure, unspecified whether with hypoxia or hypercapnia Problem Acute J44.1 Active 808817010 exacerbation of chronic obstructive pulmonary disease (COPD) Problem Chronic J44.9 Active 77837673 obstructive pulmonary disease, unspecified COPD type Problem Generalized F41.1 Active 53185956 anxiety disorder Problem 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 604090836958 Problem Current moderate F32.1 Active 95655564 episode of major depressive disorder without prior episode Problem Failure to R62.7 Active 417893217 thrive in adult Problem Panic disorder F41.0 Active 375851462 [episodic paroxysmal anxiety] Problem 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 [address], [place] [address] IMMUNIZATIONS Vaccine Route Administration Date Status Prevnar 13 -Pneumonia Vaccine IM Intramuscular May 11, 2019 A dministered Kenalog (Triamcinolone) IM Intramuscular Mar 08, 2019 Adminis tered SOCIAL HISTORY Tobacco Use: Social History Observation Description Date Details (start date - stop date) Former Smoker Sex Assigned At : Social History Observation Description Sex Assigned At Unknown PHQ9 Question Answer Notes Little interest or pleasure in doing things Several days Feeling down, depressed, or hopeless Several days Trouble falling or staying asleep or sleeping too much More than half the days Feeling tired or having little energy Not at all Poor appetite or overeating Not at all Feeling bad about yourself, or that you are a failure, Sever al days or have let yourself or your family down Trouble concentrating on things, such as reading the Not at all newspaper or watching television Moving or speaking so slowly that other people could Several days have noticed; or the opposite, being so fidgety or restless that you have been moving around a lot more than usual Total Score 6 Interpretation Mild Depression Thoughts that you would be better off or of Not at all hurting yourself in some way Alcohol Screen Question Answer Notes Did you have a drink containing alcohol in the past year? No Points 0 Interpretation Negative Tobacco Use/Smoking Question Answer Notes Are you a former smoker Additional Findings: Tobacco Non-User Ex-moderate cigarette smoker (10-19/day) Tobacco use other than smoking: Question Answer Notes Are you an other tobacco user? No REASON FOR REFERRAL No Information VITAL SIGNS No information MEDICATIONS Medication SIG (Take, Route, Start Date End Date Status Frequency, Duration) Citalopram Hydrobromide 1 tablet Orally Once a Active 40 MG day for 90 days Letairis 10 MG 1 tablet Orally Once a Act gallo day PredniSONE 20 MG 2 tablets Orally Once a Mar, Mar, Active day for 5 days [place] MG 1 capsule Orally Once a Active day for 30 day(s) Tumersaid - as directed Orally Active Trelegy Ellipta 1 puff Inhalation Once a Not-Taking 100-62.5-25 MCG/INH day Glucosamine 500 MG 1 capsule with a meal Active Orally Three times a day for 30 day(s) ProAir HFA 108 (90 Base) 2 puffs as needed Active MCG/ACT Inhalation every 6 hrs for 30 days Acyclovir 200 MG 1 capsule Orally Twice a Active day for 90 Albuterol Sulfate (2.5 3 ml as needed Act gallo MG/3ML) 0.083% Inhalation Three times a day Mucinex Maximum Strength 1 tablet as needed Active 1200 MG Orally every 12 hrs Prolia 60 MG/ML as directed Subcutaneous Active Ambrisentan 10 MG 1 tablet Orally Once a Active day Dulera 100-5 MCG/ACT 2 puffs Inhalation Twice Active a day Claritin 10 MG 1 tablet Orally Once a Act gallo day Vitamin D 2000 UNIT 1 tablet Orally Once a Active day Proventil HFA 108 (90 1 puff as needed Ac tive Base) MCG/ACT Inhalation every 4 hrs Nasonex 50 MCG/ACT 2 sprays in each nostril Active Nasally Once a day Questran 4 GM 1 packet mixed with Active water or non-carbonated drink Orally Twice a day Montelukast Sodium 10 MG TAKE 1 TABLET BY MOUTH Active ONCE A DAY IN THE EVENING for 90 Xanax 0.5 MG 1 tablet as needed for Activ e severe anxiety Orally three times a day for 30 days Celexa 40 MG TAKE 1 TABLET BY MOUTH Activ e ONCE DAILY for 90 Tadalafil 2.5 MG 1 tablet ( 2 MG) Orally Not-Taking Once a day PROCEDURES No Information RESULTS No Results REASON FOR VISIT Rx prednisone MEDICAL (GENERAL) HISTORY Type Description Date Medical History Fatty liver Medical History Shingles Medical History Age-related osteoporosis without current pathological fracture Medical History Depression with anxiety Medical History Seasonal allergies Medical History Oxygen dependent Medical History Chronic obstructive pulmonary disease, u nspecified COPD type Surgical History Left Lobectomy for MAC 2007 Surgical History Cyst left Kidney Surgical History Tonsillectomy Surgical History Surgical History Tubal ligation Hospitalization History ARF Rhinovirus - [facility] Tenriism 0 06/2019 Hospitalization History [facility]OPD 10/2019 Goals Section No Information Health Concerns No Information MEDICAL EQUIPMENT No Information MENTAL STATUS No Information FUNCTIONAL STATUS No Information ASSESSMENTS No Information PLAN OF TREATMENT Medication Medication Name Sig Start Date Stop Date Celexa 40 MG TAKE 1 TABLET BY MOUTH ONCE DAILY for 90 Xanax 0.5 MG 1 tablet as needed for severe anxiety Orally three times a day for 30 days PredniSONE 20 MG 2 tablets Orally Once a day for 5 Mar, Mar, days Montelukast Sodium 10 MG TAKE 1 TABLET BY MOUTH ONCE A DAY IN THE EVENING for 90 Next Appt Details Provider Name:Refugio Crawford, 2020-05-03 1 0:10:00 AM, [address], [place], [address], Insurance Providers Payer Name Payer Address Payer Insured Patient Coverage Cover age Phone Name Relationship to Start Date End Date Insured MEDICARE Attn Part B [id number] Khai Romo [facility] Claims [address] [facility] [address] [facility] [address] [phone] Khai Romo [facility] [address] [phone]
--- OUTSIDE RECORDS SUMMARY | 2020-05-16 13:50 | XMS REPORT ---
:1945 Author Organization [facility] Address [address] [place] [address] Care Team Providers Name Role Phone Crawford Unavailable [phone] PROBLEMS Type Condition ICD9-CM [id number] Onset Condition SNOMED Code Notes Code Code Dates Status Problem Fatty liver K76.0 Active 990288173 Problem Depression with F41.8 Active 595955854 anxiety Problem Age-related M81.0 Active 918293696 osteoporosis without current pathological fracture Problem Shingles B02.9 Active 9816823 Problem 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 214355229145 Problem Seasonal J30.2 Active 665065143 allergies Problem Left thyroid E04.1 Active 910562789 nodule Problem Acute on chronic J96.20 Active 87554226 respiratory failure, unspecified whether with hypoxia or hypercapnia Problem Panic disorder F41.0 Active 402305575 [episodic paroxysmal anxiety] Problem Current moderate F32.1 Active 44671878 episode of major depressive disorder without prior episode Problem Secondary I27.21 Active 65834105 pulmonary arterial hypertension Problem Benzodiazepine F13.20 Active 786001129 dependence, continuous Problem Chronic J44.9 Active 74833650 obstructive pulmonary disease, unspecified COPD type Problem Pulmonary J84.10 Active 34204917 fibrosis Problem Acute J44.1 Active 062987092 exacerbation of chronic obstructive pulmonary disease (COPD) Problem Generalized F41.1 Active 17752136 anxiety disorder Problem Failure to thrive R62.7 Active 800411805 in adult ALLERGIES Allergen (clinical drug Drug/Non Drug Reaction Allergy Type Onset D ate Status ingredient) Allergy documented on EMR sulfamethoxazole / Bactrim DS(NDC Unknown Drug Allergy Active trimethoprim Code:[address]-35) ENCOUNTERS from 1945 to 2020-05-02 Encounter Location Date Provider Diagnosis Chikimakayla Rodney [address] Kevin STEINER Apr, On License Of [facility] [address] [place], [address] ; [place] [address] moderate episo de of major depressiv e disorder withou t prior episode F32.1 ; Secondary pulmo nary arterial hypert ension I27.21 ; Age-re lated osteoporosis wi thout current patholo gical fracture M81.0 ; Generalized anx iety disorder F41.1 ; Chronic obstruc tive pulmonary disea se, unspecified RESPIRATORY CARE INSTRUCTOR D type J44.9 ; Fatty l iver K76.0 ; Panic d isorder [episodic parox ysmal anxiety] F41.0 ; Seasonal allerg ies J30.2 ; Benzodi azepine dependence, con tinuous F13.20 ; Oxygen dependent Z99.8 1 ; Failure to thri ve in adult R62.7 ; Depression with anxiety F41.8 and Left thyroid nodule E04.1 IMMUNIZATIONS Vaccine Route Administration Date Status FluAD Unknown Apr 12, 2020 Administered Prevnar 13 -Pneumonia Vaccine IM Intramuscular May [...] REASON FOR REFERRAL No Information VITAL SIGNS Height 57 in Apr, Weight 85.4 lbs Apr, Temperature 97.6 degrees Fahrenheit Apr, BMI 18.48 kg/m2 Apr, Oximetry 79 % Apr, Respiratory Rate 16 /min Apr, Blood pressure systolic 123 mm Hg Apr, Blood pressure diastolic 59 mm Hg Apr, MEDICATIONS Medication SIG (Take, Route, Start Date End Date Status Frequency, Duration) Mucinex Maximum Strength 1 tablet as needed Orally Active 1200 MG every 12 hrs Acyclovir 200 MG 1 capsule Orally Twice a Active day for Nasonex 50 MCG/ACT 2 sprays in each nostril Active Nasally Once a day Questran 4 GM 1 packet mixed with water A ctive or non-carbonated drink Orally Twice a day Xanax 0.5 MG 1 tablet Orally TID PRN Acti ve severe anxiety for 30 days Letairis 10 MG 1 tablet Orally Once a day Active PredniSONE 5 MG 1 tablet ( 10 MG) Orally Active Once a day Montelukast Sodium 10 MG TAKE 1 TABLET BY MOUTH ONCE Active A DAY IN THE EVENING once a day for 90 days [place] MG 1 capsule Orally Once a day Active for 30 day(s) Prolia 60 MG/ML as directed Subcutaneous Active Ambrisentan 10 MG 1 tablet Orally Once a day Active Tumersaid - as directed Orally Active Glucosamine 500 MG 1 capsule with a meal Active Orally Three times a day for 30 day(s) Albuterol Sulfate (2.5 3 ml as needed Inhalation Active MG/3ML) 0.083% Three times a day Dulera 100-5 MCG/ACT 2 puffs Inhalation Twice a Active day ProAir HFA 108 (90 Base) 2 puffs as needed Active MCG/ACT Inhalation every 6 hrs for 30 days Citalopram Hydrobromide 40 1 tablet Orally Once a day Active MG for 90 days Proventil HFA 108 (90 Base) 1 puff as needed Inhalation Active MCG/ACT every 4 hrs Trelegy Ellipta 100-62.5-25 1 puff Inhalation Once a Not-Taking MCG/INH day Montelukast Sodium 10 MG TAKE 1 TABLET BY MOUTH ONCE Active A DAY IN THE EVENING for 90 Celexa 40 MG TAKE 1 TABLET BY MOUTH ONCE Active DAILY for 90 Vitamin D 2000 UNIT 1 tablet Orally Once a day Active Claritin 10 MG 1 tablet Orally Once a day Active Tadalafil 2.5 MG 1 tablet ( 2 MG) Orally Not-Taking Once a day PROCEDURES No Information RESULTS No Results REASON FOR VISIT Medication f/u MEDICAL (GENERAL) HISTORY Type Description Date Medical [...] Tubal ligation Hospitalization History ARF Rhinovirus - [place] Tenriism 0 06/2019 Hospitalization History AECOPD 10/2019 Goals Section No Information Health Concerns No Information MEDICAL EQUIPMENT No Information MENTAL STATUS No Information FUNCTIONAL STATUS No Information ASSESSMENTS Encounter Date Diagnosis Notes Apr, Panic disorder [episodic paroxysmal anxi ety] (ICD-10 - F41.0) Apr, Fatty liver (ICD-10 - K76.0) Apr, Benzodiazepine dependence, continuous (I CD-10 - F13.20) Apr, Seasonal allergies (ICD-10 - J30.2) Apr, Age-related osteoporosis without current pathological fracture (ICD-10 - M81.0) Apr, Left thyroid nodule (ICD-10 - E04.1) Apr, Chronic obstructive pulmonary disease, u nspecified COPD type (ICD-10 - J44.9) Apr, Generalized anxiety disorder (ICD-10 - F 41.1) Apr, Pulmonary fibrosis (ICD-10 - J84.10) Apr, Failure to thrive in adult (ICD-10 - R62 .7) Apr, Oxygen dependent (ICD-10 - Z99.81) Apr, Secondary pulmonary arterial hypertensio n (ICD-10 - I27.21) Apr, Current moderate episode of major depres sive disorder without prior episode (ICD-10 - F32.1) Apr, Depression with anxiety (ICD-10 - F41.8) PLAN OF TREATMENT Medication Medication Name Sig Start Date Stop Date Prolia 60 MG/ML as directed Subcutaneous Vitamin D 2000 UNIT 1 tablet Orally Once a day Claritin 10 MG 1 tablet Orally Once a day Montelukast Sodium 10 MG TAKE 1 TABLET BY MOUTH ONCE A DAY IN THE EVENING once a day for 90 days Questran 4 GM 1 packet mixed with water or non-carbonated drink Orally Twice a day Citalopram Hydrobromide 40 MG 1 tablet Orally Once a day for 90 days ProAir HFA 108 (90 Base) MCG/ACT 2 puffs as needed Inhalation every 6 hrs for 30 days Letairis 10 MG 1 tablet Orally Once a day Xanax 0.5 MG 1 tablet Orally TID PRN severe anxiety for 30 days Nasonex 50 MCG/ACT 2 sprays in each nostril Nasally Once a day Treatment Notes Assessment Notes Clinical Notes Pulmonary fibrosis . Noted on chest x-ray. Education given. Managed by pulmonary Current moderate episode of major . Stable with current megan men. depressive disorder without prior Education given. , -- Depr ession episode Education: Depression is a brain disease that makes you sad, but it is different than normal sadness. Depressed people feel down most of the time for at least 2 weeks. They also have at least one of these 2 symptoms: 1. They no longer enjoy or care about doing the things they used to like to do. 2. They feel sad, down, hopeless, or cranky most of the day, almost every day. It can also make you: lose or gain weight; sleep too much or too little; fell tired or like you have no energy; feel guilty or like you are worth nothing; forget things or feel confused; and think about or suicide. Medication and/or seeing a counselor (such as a psychiatrist, psychologist, nurse or social services coordinator) may be necessary to treat depression. Both treatments take time to work. If you ever feel like you might hurt yourself or some else, then call your doctor or call 911 or go to the ER. Secondary pulmonary arterial Education given. Upcoming appt with hypertension Cardiology. Age-related osteoporosis without Stable. managed by Rheumato logjasmine. current pathological fracture ROR signed. Upcoming 05/24/19. Generalized anxiety disorder . Stable with current regimen. Education given, -- Anxiety Education: Anxiety is a feeling of anxiousness or nervousness. Being extremely anxious or worried on most days for 6 months or longer is not normal. This is a type of anxiety disorder. This disorder can make it hard to do everyday tasks. Other types of anxiety include: post traumatic stress disorder, panic disorder, and phobias. Symptoms of anxiety may include: feeling worried or on the edge, trouble sleeping, or forgetting things. Feelings of stomach aches or chest tightness is another common symptom. Medicine, exercise, and other treatments like counseling, talk therapy, yoga, and massages maybe necessary to treat this disorder. Chronic obstructive pulmonary Managed by Pulmonology. AYLA comer. disease, unspecified COPD type Samples of Symbicort + Spiriv a given. , COPD Education: This is condition in which the airways in the lungs become damaged, making it increasingly difficult for air to pass in and out. Symptoms may include: shortness of breath, chronic cough, chest pain, fatigue with exertion and other. Compliance with medication is vital to control the symptoms and to slow the progression of the disease. Symptoms of COPD cannot be completely eliminated with treatment. COPD usually worsens over time. If your symptoms acutely worsen, please contact the doctor. This may indicate a need to adjust and/or add medication. Pulmonary consultation maybe be required if symptoms do not improve. Fatty liver Stable. Asymptomatic. Panic disorder [episodic paroxysmal Stable with Celexa and X anax as anxiety] needed. reviewed Rx monitoring. No red flags. Refill for Xanax given with clear instructions. RFx 1. 2 Rx to last 3 months. Discussed extensively regarding Benzos for prison usage along with addiction, tolerance and dependence. Pateint accepatble of risks/complications. Affecting ADls without medication._ _ Due to patient's use of Xanax as needed and been stable for multiple years, will continue to prescribe, clear instructions given to patient. patient agreeable with plan._ _ Rx for Xanax three times daily as needed, #90. Side effects discussed._ _ Discussed: 1 Rx #90 tabs to last 6-8 weeks._ _Patient to make appt when about to run out with RN x 2 then Provider q 3 refills.No red flags. Seasonal allergies Stable. Failure to thrive in adult . Education given. Encourage patient on nutrition. Treatment Notes Test Name Order Date Comp. Metabolic Panel (14) (CMP) 2020-05-02 CBC With Differential/Platelet 2020-05-02 TSH reflex to T4F 2020-05-02 Urine Drug (14) Toxicology Monitor w/Confirmation + Be nzo Reflex 2020-05-02 Next Appt Details 3 Months TV Reason: Provider Name:Refugio Crawford, 2020-08-02 1 0:40:00 AM, [address], [place], [address], Insurance Providers Payer Name Payer Address Payer Insured Patient Coverage Cover age Phone Name Relationship to Start Date End Date Insured [employer] [address] [phone] Khai Romo [facility] [address] [address] MEDICARE Attn Part B [id number] Khai Romo [facility] Claims [address] [facility] [phone]
--- OUTSIDE RECORDS SUMMARY | 2020-05-16 13:50 | XMS REPORT ---
:1945 Author Organization [facility] Address 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 Active 99520452 pulmonary arterial hypertension Problem Left thyroid E04.1 Active 352124563 nodule Problem Acute on chronic J96.20 Active 55876798 respiratory failure, unspecified whether with hypoxia or hypercapnia Problem Acute J44.1 Active 190848828 exacerbation of chronic obstructive pulmonary disease (COPD) Problem Chronic J44.9 Active 91687466 obstructive pulmonary disease, unspecified COPD type Problem Generalized F41.1 Active 69221232 anxiety disorder Problem 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 703528978641 Problem Current moderate F32.1 Active 37926027 episode of major depressive disorder without prior episode Problem Failure to R62.7 Active 821958981 thrive in adult Problem Panic disorder F41.0 Active 425387910 [episodic paroxysmal anxiety] Problem Pulmonary J84.10 Active 43473311 fibrosis ALLERGIES No Information ENCOUNTERS from 1945 to 2020-03-20 Encounter [facility] Date [facility] [address], Refugio Crawford Dep ression with Family [facility] [address], [facility] [address] [place] [address] IMMUNIZATIONS No Information SOCIAL HISTORY Sex Assigned At : Social History Observation Description Sex Assigned At Unknown REASON FOR REFERRAL No Information VITAL SIGNS Height 57 in Feb, Weight 89.6 lbs Feb, Temperature 97.7 degrees Fahrenheit Feb, BMI 19.39 kg/m2 Feb, Oximetry 91 % Feb, Respiratory Rate 32 /min Feb, Blood pressure systolic 130 mm Hg Feb, Blood pressure diastolic 59 mm Hg Feb, MEDICATIONS Medication SIG (Take, Route, Start Date End Date Status Frequency, Duration) [place] MG 1 capsule Orally Once a day Active for 30 day(s) Ambrisentan 10 MG 1 tablet Orally Once a day Active Mucinex Maximum Strength 1 tablet as needed Orally Active 1200 MG every 12 hrs Acyclovir 200 MG 1 capsule Orally Twice a Active day for 90 Xanax 0.5 MG 1 tablet as needed for Activ e severe anxiety Orally three times a day for 30 days Vitamin D 2000 UNIT 1 tablet Orally Once a day Active Albuterol Sulfate (2.5 3 ml as needed Inhalation Active MG/3ML) 0.083% Three times a day Letairis 10 MG 1 tablet Orally Once a day Active ProAir HFA 108 (90 Base) 2 puffs as needed Active MCG/ACT Inhalation every 6 hrs for 30 days Claritin 10 MG 1 tablet Orally Once a day Active Tadalafil 2.5 MG 1 tablet ( 2 MG) Orally Not-Taking Once a day Montelukast Sodium 10 MG TAKE 1 TABLET BY MOUTH ONCE Active A DAY IN THE EVENING for Celexa 40 MG TAKE 1 TABLET BY MOUTH ONCE Active DAILY for Proventil HFA 108 (90 Base) 1 puff as needed Inhalation Active MCG/ACT every 4 hrs Nasonex 50 MCG/ACT 2 sprays in each nostril Active Nasally Once a day Questran 4 GM 1 packet mixed with water A ctive or non-carbonated drink Orally Twice a day Dulera 100-5 MCG/ACT 2 puffs Inhalation Twice a Active day Glucosamine 500 MG 1 capsule with a meal Active Orally Three times a day for 30 day(s) Citalopram Hydrobromide 40 1 tablet Orally Once a day Active MG for 90 days Prolia 60 MG/ML as directed Subcutaneous Active Trelegy Ellipta 100-62.5-25 1 puff Inhalation Once a Not-Taking MCG/INH day Tumersaid - as directed Orally Active PROCEDURES No Information RESULTS No Results REASON FOR VISIT RX refill MEDICAL (GENERAL) HISTORY Type Description Date Medical [...] Tubal ligation Hospitalization History ARF Rhinovirus - [place] Yarsanism 0 06/2019 Hospitalization History AECOPD 10/2019 Goals Section No Information Health Concerns No Information MEDICAL EQUIPMENT No Information MENTAL STATUS No Information FUNCTIONAL STATUS No Information ASSESSMENTS Encounter Date Diagnosis Notes Feb, Depression with anxiety (ICD-10 - F41.8) PLAN OF TREATMENT Medication Medication Name Sig Start Date Stop Date Xanax 0.5 MG 1 tablet as needed for severe anxiety Orally three times a day for 30 days Next Appt Details prn Reason:
[2020-05-16] MEDS ORDERED: ALBUTEROL INHALER 60 PUFF/8 GM IH ONE (14:22)
[2020-05-16] MEDS ORDERED: METHYLPREDNISOLONE 40 MG INJ ONE (14:22)
[2020-05-16 14:37] LABS: Arterial Blood Carboxyhemoglob 1.8 % (0-1.5); Blood Gas Oxyhemoglobin 93.8 % (94-97); Blood O2 Saturation 96.2 % (92-98.5)
[2020-05-16 14:51] LABS: Absolute Lymphocytes (CBC) 1.1 K/uL (0.7-4.9); Basophils % 0.4 % (0-1.3); Hematocrit 39.4 % (36.0-45.0); MPV 7.7 fL (7.6-11.3); Protime INR 0.97
--- NOTE | 2020-05-16 15:01 | RAD REPORT ---
EXAM DESCRIPTION: Jade Single View05/16/2020 2:45 pm CLINICAL HISTORY: Shortness of breath COMPARISON: January 2020 FINDINGS: Lungs are hyperaerated. Marked pulmonary fibrosis is unchanged. The lungs appear clear of acute infiltrate. The heart is normal size IMPRESSION: No acute abnormalities displayed
[2020-05-16 15:16] LABS: ALT/SGPT 75 U/L (12-78); AST/SGOT 68 U/L (15-37); Albumin 3.4 g/dL (3.4-5.0); Alkaline Phosphatase 95 U/L (45-117); BUN Blood Urea Nitrogen 10 mg/dL (7-18); Bicarbonate 25 mmol/L (21-32); Bilirubin Direct < 0.1 mg/dL (0-0.2); Bilirubin Total 0.4 mg/dL (0.2-1.0); Glucose Level 101 mg/dL (74-106); Magnesium 2.3 mg/dL (1.8-2.4); NT PRO-BNP 673 pg/mL (<450); Potassium 4.2 mmol/L (3.5-5.1); Protein, Total 6.8 g/dL (6.4-8.2); Sodium Level 139 mmol/L (136-145); Troponin (Emerg Dept Use Only) < 0.02 ng/mL (0.0-0.045)
[2020-05-16] MEDS ORDERED: ACETAMINOPHEN 500 MG TAB PO PRN (15:26)
[2020-05-16] MEDS ORDERED: ONDANSETRON 4 MG/2 ML VIAL IV PRN (15:26)
--- NOTE | 2020-05-16 15:42 | ER ---
Nurse's Notes [facility] Name: Semea Romo Age: 74 yrs Sex: Female : 1945 Arrival Date: 05/16/2020 Time: 13:44 Bed 13 Private MD: Refugio Crawford Diagnosis: Chronic obstructive pulmonary disease, unspecified;Hypoxemia Presentation: 05/16 14:01 Chief complaint: Patient states: pt states O2 dropped yesterday and it took a long time dm5 to get it to come back up again. She states that she feels like it [place] the 60s [place] Pt put herself on 4l/min of O2. O2 sat was 78% in triage. Coronavirus screen: Client denies travel out of the [place] in the last 14 days. cough unrelated to allergies, shortness of breath, Client presents with at least one sign or symptom that may indicate coronavirus-19. Standard/surgical mask placed on the client. Provider contacted for isolation considerations. Ebola Screen: Patient negative for fever greater than or equal to 101.5 degrees Fahrenheit, and additional compatible Ebola Virus Disease symptoms Patient denies exposure to infectious person. Patient denies travel to an Ebola-affected area in the 21 days before illness onset. No symptoms or risks identified at this time. Initial Sepsis Screen: Does the patient meet any 2 criteria? RR > 20 per min. No. Patient's initial sepsis screen is negative. Does the patient have a suspected source of infection? Yes: Productive cough/pneumonia. Risk Assessment: Do you want to hurt yourself or someone else? Patient reports no desire to harm self or others. Onset of symptoms was May 16, 2020. 14:01 Method Of Arrival: Ambulatory dm5 14:01 Acuity: VADIM 2 dm5 Triage Assessment: 14:40 Respiratory: Onset: The symptoms/episode began/occurred today, the patient has moderate jd3 shortness of breath. Historical: - Allergies: 14:42 Bactrim; jd3 14:42 Sulfa (Sulfonamide Antibiotics); jd3 - Home Meds: 14:42 Vitamin D Oral 2000 unit daily [Active]; citalopram 40 mg tab 1 tab once daily jd3 [Active]; Glucosamine 500 mg Oral tab daily [Active]; Letairis 5 mg Oral tab 1 tab once daily [Active]; ProAir HFA 90 mcg/actuation inhalation HFAA 2 puffs every 4 hours [Active]; albuterol sulfate 2.5 mg /3 mL (0.083 %) Inhl nebu 3 mL 4 times per day [Active]; montelukast 10 mg Oral tab 1 tab once daily [Active]; Prolia 60 mg/mL subcutaneous syrg 1 mL every 6 mo [Active]; [place]-3 350 mg-235 mg- 90 mg-597 mg Oral cpDR daily [Active]; singular 10mg 1 tab daily, Flovent 220mcg inh 1 puff BID, Proair 90mcg inh 2 puff QID prn, Celexa 40mg daily, Spiriva 2.5mcg daily , Acyclovir 200mg 1 tab BID, [Active]; Spiriva Respimat 2.5 mcg/actuation inhalation mist 2 puffs once daily [Active]; Symbicort 160-4.5 mcg/actuation inhalation HFAA 2 puffs 2 times per day [Active]; acyclovir 200 mg Oral cap daily [Active]; Mucinex 1,200 mg Oral Ta12 daily [Active]; turmeric root extract Oral daily [Active]; Xanax 0.5 mg Oral tab as needed [Active]; - PMHx: 14:42 neuropathy; Mycobacterium Avium Complex; Osteoporosis; Depression; fatty liver; jd3 degenerative joint disease; COPD; Anxiety; shingles; - Immunization history:: Adult Immunizations unknown. - Social history:: Smoking status: unknown. Screenin:40 Abuse screen: Denies threats or abuse. Nutritional screening: No deficits noted. jd3 Tuberculosis screening: No symptoms or risk factors identified. Fall Risk IV access (20 points). Ambulatory Aid- None/Bed Rest/Nurse Assist (0 pts). Gait- Normal/Bed Rest/Wheelchair (0 pts) Mental Status- Oriented to own ability (0 pts). Total Wang Fall Scale indicates No Risk (0-24 pts). Assessment: 14:39 General: Appears uncomfortable, Behavior is calm, cooperative, appropriate for age. jd3 Pain: Denies pain. Neuro: Level of Consciousness is awake, alert, obeys commands, Oriented to person, place, time, situation. Cardiovascular: Heart tones present Capillary refill < 3 seconds Patient's skin is warm and dry. Rhythm is irregular. Respiratory: Reports shortness of breath on exertion Airway is patent Respiratory effort is labored, shallow, Respiratory pattern is tachypnea Breath sounds are diminished bilaterally. Denies cough. GI: No signs and/or symptoms were reported involving the gastrointestinal system. : No signs and/or symptoms were reported regarding the genitourinary system. EENT: No signs and/or symptoms were reported regarding the EENT system. Derm: Skin is intact, Skin is dry, Skin is normal, Skin temperature is warm. Musculoskeletal: Circulation, motion, and sensation intact. Range of motion: intact in all extremities. 16:25 Reassessment: Patient appears in no apparent distress at this time. Patient and/or jd3 family updated on plan of care and expected duration. Pain level reassessed. Patient is alert, oriented x 3, equal unlabored respirations, skin warm/dry/pink. Patient states feeling better. 17:17 Reassessment: Patient appears in no apparent distress at this time. Patient and/or jd3 family updated on plan of care and expected duration. Pain level reassessed. Patient is alert, oriented x 3, equal unlabored respirations, skin warm/dry/pink. awaiting admission Patient states feeling better. 18:24 Reassessment: Patient appears in no apparent distress at this time. Patient and/or jd3 family updated on plan of care and expected duration. Pain level reassessed. Patient is alert, oriented x 3, equal unlabored respirations, skin warm/dry/pink. awaiting admission Patient states feeling better. 20:17 Reassessment: Patient appears in no apparent distress at this time. Patient and/or jd3 family updated on plan of care and expected duration. Pain level reassessed. Patient is alert, oriented x 3, equal unlabored respirations, skin warm/dry/pink. Vital Signs: 14:01 BP 116 / 74; Pulse 122; Pulse Ox 78% on 4 lpm NC; dm5 14:38 BP 98 / 60; Pulse 110; Resp 24 S; Temp 97.8(TE); Pulse Ox 95% on 4 lpm NC; jd3 16:25 BP 100 / 62; Pulse 99; Resp 17 S; Pulse Ox 96% on 3 lpm NC; Pain 0/10; jd3 17:18 BP 111 / 64; Pulse 108; Resp 20 S; Pulse Ox 94% on 3 lpm NC; jd3 18:24 BP 115 / 59; Pulse 100; Resp 24 S; Pulse Ox 95% on 3 lpm NC; jd3 20:17 BP 100 / 59; Pulse 100; Resp 20 S; Pulse Ox 93% on 3 lpm NC; jd3 ED Course: 13:44 Patient arrived in ED. ag5 13:44 Refugio Crawford DO is Private Physician. ag5 13:53 Chilango Llanos PA is PHCP. cp 13:53 Rufino Du MD is Attending Physician. cp 14:01 Kiet Collins RN is Primary Nurse. jd3 14:03 Triage completed. dm5 14:30 Inserted saline lock: 20 gauge in right forearm, using aseptic technique. Blood jd3 collected. 14:42 Patient has correct armband on for positive identification. Placed in gown. Bed in low jd3 position. Call light in reach. Side rails up X 1. gambling monitor on. Pulse ox on. NIBP on. 14:43 Arm band placed on. EKG completed in triage. Results shown to MD. jd3 14:46 XRAY Chest (1 view) In Process Unspecified. EDMS 15:40 Dannielle Suarez MD is Hospitalizing Provider. cp 21:45 No provider procedures requiring assistance completed. Patient admitted, IV remains in jd3 place. Administered Medications: 14:11 Drug: Albuterol HFA Inhaler 2 puffs Route: Inhalation; jd3 15:00 Follow up: Response: No adverse reaction jd3 14:38 Drug: SOLU-Medrol 80 mg Route: IVP; Site: right forearm; jd3 15:30 Follow up: Response: No adverse reaction jd3 16:09 Drug: LevaQUIN 500 mg Volume: 100 ml; Route: IVPB; Infused Over: 60 mins; Site: right jd3 forearm; 17:08 Follow up: Response: No adverse reaction; IV Status: Completed infusion; IV Intake: jd3 100ml Intake: 17:08 IV: 100ml; Total: 100ml. jd3 Outcome: 15:41 Decision to Hospitalize by Provider. cp 21:26 Patient left the ED. sg 21:45 Admitted to Med/surg accompanied by tech, via wheelchair, room 412, with oxygen, with jd3 chart, Report called to Pooja GOODRICH 21:45 Condition: stable 21:45 Instructed on the need for admit, Demonstrated understanding of instructions. Signatures: Dispatcher [employer] Jeannette Pal RN RN dm5 Bishop Carrizales RN RN sg Chilango Llanos PA PA cp Davies, Jonathon, RN RN jd3 Rashaad, Al ag5
--- NOTE | 2020-05-16 15:42 | EDPHYS ---
Physician Documentation [facility] Name: Seema Romo Age: 74 yrs Sex: Female : 1945 Arrival Date: 05/16/2020 Time: 13:44 Bed 13 Private MD: Hu Crawfordh ED Physician Rufino Du HPI: 05/16 14:08 This 74 yrs old Female presents to ER via Ambulatory with complaints of cp Breathing Difficulty. 14:08 The patient has shortness of breath at rest. Onset: The symptoms/episode began/occurred cp yesterday, and became worse today. Duration: The symptoms are continuous, and are steadily getting worse. Historical: - Allergies: 14:42 Bactrim; jd3 14:42 Sulfa (Sulfonamide Antibiotics); jd3 - Home Meds: 14:42 Vitamin D Oral 2000 unit daily [Active]; citalopram 40 mg tab 1 tab once daily jd3 [Active]; Glucosamine 500 mg Oral tab daily [Active]; Letairis 5 mg Oral tab 1 tab once daily [Active]; ProAir HFA 90 mcg/actuation inhalation HFAA 2 puffs every 4 hours [Active]; albuterol sulfate 2.5 mg /3 mL (0.083 %) Inhl nebu 3 mL 4 times per day [Active]; montelukast 10 mg Oral tab 1 tab once daily [Active]; Prolia 60 mg/mL subcutaneous syrg 1 mL every 6 mo [Active]; [place]-3 350 mg-235 mg- 90 mg-597 mg Oral cpDR daily [Active]; singular 10mg 1 tab daily, Flovent 220mcg inh 1 puff BID, Proair 90mcg inh 2 puff QID prn, Celexa 40mg daily, Spiriva 2.5mcg daily , Acyclovir 200mg 1 tab BID, [Active]; Spiriva Respimat 2.5 mcg/actuation inhalation mist 2 puffs once daily [Active]; Symbicort 160-4.5 mcg/actuation inhalation HFAA 2 puffs 2 times per day [Active]; acyclovir 200 mg Oral cap daily [Active]; Mucinex 1,200 mg Oral Ta12 daily [Active]; turmeric root extract Oral daily [Active]; Xanax 0.5 mg Oral tab as needed [Active]; - PMHx: 14:42 neuropathy; Mycobacterium Avium Complex; Osteoporosis; Depression; fatty liver; jd3 degenerative joint disease; COPD; Anxiety; shingles; - Immunization history:: Adult Immunizations unknown. - Social history:: Smoking status: unknown. ROS: 14:10 Constitutional: Negative for body aches, chills, fever, poor PO intake. cp 14:10 Eyes: Negative for injury, pain, redness, and discharge. cp 14:10 ENT: Negative for ear pain, sore throat, difficulty swallowing, difficulty handling secretions. 14:10 Neck: Negative for pain with movement, pain at rest, stiffness. 14:10 Cardiovascular: Negative for chest pain, edema. 14:10 Respiratory: Positive for cough, "sounds productive", shortness of breath, at rest. wheezing. 14:10 Abdomen/GI: Negative for abdominal pain, nausea, vomiting, and diarrhea, constipation. 14:10 : Negative for urinary symptoms. 14:10 Skin: Negative for rash. 14:10 Neuro: Negative for altered mental status, dizziness, headache, syncope, weakness. 14:10 All other systems are negative. Exam: 14:15 Constitutional: The patient appears alert, awake, non-diaphoretic, non-toxic, well cp developed, well nourished, in obvious distress, moderately distressed. 14:15 Head/Face: Normocephalic, atraumatic. cp 14:15 Eyes: Periorbital structures: appear normal, Conjunctiva: normal, no exudate, no injection, Sclera: no appreciated abnormality, Lids and lashes: appear normal, bilaterally. 14:15 ENT: External ear(s): are unremarkable, Nose: is normal, Mouth: Lips: moist, Oral mucosa: pink and intact, moist, Posterior pharynx: Airway: no evidence of obstruction, patent, Tonsils: are normal in appearance, swelling, is not appreciated, erythema, is not appreciated, exudate, is not appreciated. 14:15 Neck: ROM/movement: is normal, is supple, without pain, no range of motions limitations, no meningismus. 14:15 Chest/axilla: Inspection: normal, Palpation: is normal, no crepitus, no tenderness. 14:15 Cardiovascular: Rate: tachycardic, Rhythm: regular, Edema: is not appreciated, JVD: is not appreciated. 14:15 Respiratory: moderate respiratory distress is noted, Respirations: labored breathing, that is moderate, intercostal retractions, are absent, shallow respirations, that is moderate, Breath sounds: decreased breath sounds, that are moderate, throughout, stridor, is not appreciated, wheezing: that is mild, is heard diffusely. 14:15 Abdomen/GI: Inspection: abdomen appears normal, Palpation: abdomen is soft and non-tender, in all quadrants, voluntary guarding, is not appreciated, involuntary guarding, is not appreciated. 14:15 Back: pain, is absent, ROM is normal. 14:15 Skin: no rash present. 14:15 Neuro: Orientation: to person, place \\T\\ time. Mentation: is normal, Cerebellar function: is grossly normal, Motor: moves all fours, strength is normal, Sensation: is normal. 14:26 ECG was reviewed by the Attending Physician. cp Vital Signs: 14:01 BP 116 / 74; Pulse 122; Pulse Ox 78% on 4 lpm NC; dm5 14:38 BP 98 / 60; Pulse 110; Resp 24 S; Temp 97.8(TE); Pulse Ox 95% on 4 lpm NC; jd3 16:25 BP 100 / 62; Pulse 99; Resp 17 S; Pulse Ox 96% on 3 lpm NC; Pain 0/10; jd3 17:18 BP 111 / 64; Pulse 108; Resp 20 S; Pulse Ox 94% on 3 lpm NC; jd3 18:24 BP 115 / 59; Pulse 100; Resp 24 S; Pulse Ox 95% on 3 lpm NC; jd3 20:17 BP 100 / 59; Pulse 100; Resp 20 S; Pulse Ox 93% on 3 lpm NC; jd3 MDM: 14:07 Patient medically screened. cp 15:30 Data reviewed: vital signs, nurses notes, lab test result(s), EKG, radiologic studies, cp plain films, I have discussed the patient's presentation/case with the attending Emergency Department Physician; and as a result, I will admit patient. 15:30 Test interpretation: by ED physician or midlevel provider: ECG, chest xray negative for cp focal pneumonia. Counseling: I had a detailed discussion with the patient and/or guardian regarding: the historical points, exam findings, and any diagnostic results supporting the discharge/admit diagnosis, lab results, radiology results, the need for further work-up and treatment in the hospital. Response to treatment: the patient's symptoms have markedly improved after treatment. Physician consultation: Dannielle Suarez MD was contacted at 15:25, regarding admission, to the telemetry unit. patient's condition. 05/16 14:05 Order name: Basic Metabolic Panel; Complete Time: 15:38 05/16 16:25 Interpretation: Normal except: GFR 60. 05/16 14:05 Order name: CBC with Diff; Complete Time: 15:09 05/16 15:09 Interpretation: Normal except: WBC 13.3; HUMERA% 83.4; LYM% 8.0; NEUT A 11.1. 05/16 14:05 Order name: LFT's; Complete Time: 15:38 05/16 14:05 Order name: Magnesium; Complete Time: 15:38 05/16 14:05 Order name: NT PRO-BNP; Complete Time: 15:38 05/16 16:26 Interpretation: NT PRO-BNP 673; Reviewed. cp 05/16 14:05 Order name: PT-INR; Complete Time: 15:09 05/16 14:05 Order name: Troponin (emerg Dept Use Only); Complete Time: 15:38 05/16 14:05 Order name: ABG; Complete Time: 15:09 05/16 14:05 Order name: Influenza Screen (a \\T\\ B); Complete Time: 15:09 05/16 14:05 Order name: Procalcitonin; Complete Time: 15:38 05/16 14:05 Order name: Lactate; Complete Time: 16:25 05/16 16:25 Interpretation: Within normal limits: LAC 1.9. cp 05/16 14:05 Order name: COVID-19 cp 05/16 14:05 Order name: Blood Culture Adult (2) cp 05/16 14:06 Order name: Urine Microscopic Only cp 05/16 15:33 Order name: CBC with Automated Diff EDMS 05/16 15:33 Order name: CBC with Automated Diff EDMS 05/16 15:33 Order name: Comprehensive Metabolic Panel EDMS 05/16 15:33 Order name: Comprehensive Metabolic Panel EDMS 05/16 15:33 Order name: Lipid Profile EDMS 05/16 15:33 Order name: Lipid Profile EDNY 05/16 15:33 Order name: Magnesium EDNY 05/16 15:33 Order name: Magnesium EDNY 05/16 15:33 Order name: NT PRO-BNP EDNY 05/16 15:33 Order name: NT PRO-BNP EDNY 05/16 15:33 Order name: Phosphorus EDNY 05/16 15:33 Order name: Phosphorus EDNY 05/16 15:33 Order name: T4 Free EDNY 05/16 15:33 Order name: T4 Free EDMS 05/16 15:33 Order name: Thyroid Stimulating Hormone EDNY 05/16 15:33 Order name: Thyroid Stimulating Hormone EDNY 05/16 14:05 Order name: XRAY Chest (1 view); Complete Time: 15:09 05/16 15:10 Interpretation: Report review. 05/16 14:05 Order name: EKG; Complete Time: 14:07 05/16 14:05 Order name: Cardiac monitoring; Complete Time: 14:38 05/16 14:05 Order name: EKG - Nurse/Tech; Complete Time: 14:38 05/16 14:05 Order name: IV Saline Lock; Complete Time: 14:38 cp 05/16 14:05 Order name: Labs collected and sent; Complete Time: 14:38 05/16 14:05 Order name: O2 Per Protocol; Complete Time: 14:07 05/16 14:05 Order name: O2 Sat Monitoring; Complete Time: 14:07 05/16 14:06 Order name: Urine Dipstick-Ancillary (obtain specimen); Complete Time: 16:52 05/16 15:33 Order name: CONS Physician Consult EDNY 05/16 15:33 Order name: Heart Healthy EDNY 05/16 15:33 Order name: Troponin I EDNY 05/16 15:33 Order name: Troponin I EDNY 05/16 15:33 Order name: Troponin I EDNY 05/16 16:57 Order name: Urine Dipstick--Ancillary (enter results) 05/16 19:21 Order name: SARS-COV-2 RT PCR EDNY 05/16 20:13 Order name: Urine Dipstick-Ancillary EDMS EC:26 Rate is 110 beats/min. Rhythm is regular. IA interval is normal. QRS interval is cp normal. QT interval is normal. T waves are Inverted in lead aVR. Interpreted by me. Reviewed by me. Administered Medications: 14:11 Drug: Albuterol HFA Inhaler 2 puffs Route: Inhalation; jd3 15:00 Follow up: Response: No adverse reaction jd3 14:38 Drug: SOLU-Medrol 80 mg Route: IVP; Site: right forearm; jd3 15:30 Follow up: Response: No adverse reaction jd3 16:09 Drug: LevaQUIN 500 mg Volume: 100 ml; Route: IVPB; Infused Over: 60 mins; Site: right jd3 forearm; 17:08 Follow up: Response: No adverse reaction; IV Status: Completed infusion; IV Intake: jd3 100ml Disposition: 05/16/20 15:41 Hospitalization ordered by Dannielle Suarez for Observation. Preliminary diagnosis are Chronic obstructive pulmonary disease, unspecified, Hypoxemia. - Bed requested for Telemetry/MedSurg (observation). - Status is Observation. sg - Condition is Stable. - Problem is an acute exacerbation. - Symptoms have improved. Addendum: 05/18/2020 07:16 Co-signature as Attending Physician, Rufino Du MD. r n Signatures: Dispatcher [employer] EDBishop Davies RN RN sg Rufino Du MD MD rn Lasagna, Tonya, RN RN tl1 Chilango Llanos PA PA cp Davies, Jonathon, RN RN jd3 Corrections: (The following items were deleted from the chart) 05/16 19:46 15:41 Hospitalization Ordered by Dannielle Suarez MD for Observation. Preliminary tl1 diagnosis is Chronic obstructive pulmonary disease, unspecified; Hypoxemia. Bed requested for Telemetry/MedSurg (observation). Status is Observation. Condition is Stable. Problem is an acute exacerbation. Symptoms have improved. cp 21:26 19:46 05/16/2020 15:41 Hospitalization Ordered by Dannielle Suarez MD for Observation. sg Preliminary diagnosis is Chronic obstructive pulmonary disease, unspecified; Hypoxemia. Bed requested for Telemetry/MedSurg (observation). Status is Observation. Condition is Stable. Problem is an acute exacerbation. Symptoms have improved. tl1
[2020-05-16] MEDS ORDERED: NA CHLORIDE 0.9% 1,000 ML IV SCH (16:00)
[2020-05-16] MEDS: ENOXAPARIN 40 MG/0.4 ML SQ SCH (16:00)
[2020-05-16] MEDS ORDERED: Levofloxacin500mg IV 500 MG/100 ML BAG IV ONE (16:11)
[2020-05-16] MEDS: AZITHROMYCIN IV 500 MG in NA CHLORIDE 0.9% 250 ML IVPB SCH (17:00)
[2020-05-16 17:52] LABS: Urine Bacteria <20 /HPF (<20); Urine Culture Reflex Order NOT NEEDED; Urine RBC <5 /HPF (NONE SEEN)
[2020-05-16] MEDS ORDERED: ALPRAZOLAM 0.5 MG TABLET PO PRN (19:32)
[2020-05-16] MEDS ORDERED: NA CHLORIDE 0.9% 1,000 ML ONE (19:37)
[2020-05-16] MEDS ORDERED: CEFTRIAXONE/SWI 1gm 0 GM/0 ML SYR ONE (19:38)
[2020-05-16] MEDS ORDERED: ENOXAPARIN 40 MG/0.4 ML SQ ONE (19:38)
[2020-05-16] MEDS: IPRATROPIUM BROM 0.5MG/2.5ML NEB SCH (19:51)
[2020-05-16] MEDS: ALBUTEROL 2.5 MG/3 ML NEB SOL NEB SCH (19:51)
[2020-05-16] MEDS ORDERED: ALBUTEROL 2.5 MG/3 ML NEB SOL ONE (19:51)
[2020-05-16] MEDS ORDERED: IPRATROPIUM BROM 0.5MG/2.5ML ONE (19:51)
[2020-05-16] MEDS ORDERED: ALPRAZOLAM 0.5 MG TABLET ONE (19:55)
[2020-05-16 20:13] LABS: Urine Blood NEGATIVE (NEG); Urine Glucose NEGATIVE (NEG); Urine Protein NEGATIVE (NEG)
[2020-05-16 20:57] VITALS: O2SAT 95
[2020-05-16] MEDS ORDERED: CEFTRIAXONE/SWI 1gm 1 GM/10 ML SYR IVP SCH (21:00)
[2020-05-16 22:02] VITALS: BMI 18.6
[2020-05-16] MEDS: CITALOPRAM 10 MG TABLET PO SCH (22:30)
[2020-05-17] MEDS: IPRATROPIUM BROM 0.5MG/2.5ML NEB SCH ×2 (02:20→08:05)
[2020-05-17] MEDS: ALBUTEROL 2.5 MG/3 ML NEB SOL NEB SCH ×2 (02:20→08:05)
[2020-05-17 04:11] LABS: Absolute Lymphocytes (CBC) 0.8 K/uL (0.7-4.9); Basophils % 0.2 % (0-1.3); Hematocrit 34.7 % (36.0-45.0); Lymphocytes % 13.5 % (15.3-44.8); MPV 7.6 fL (7.6-11.3); RBC Red Blood Cell Count 3.79 M/uL (3.86-4.86)
[2020-05-17 04:36] LABS: ALT/SGPT 56 U/L (12-78); AST/SGOT 31 U/L (15-37); Albumin 2.7 g/dL (3.4-5.0); Alkaline Phosphatase 75 U/L (45-117); BUN Blood Urea Nitrogen 10 mg/dL (7-18); Bicarbonate 28 mmol/L (21-32); Bilirubin Total 0.2 mg/dL (0.2-1.0); Glucose Level 121 mg/dL (74-106); HDL Cholesterol 49 mg/dL (40-60); LDL Cholesterol, Calculated 66 (<130); Magnesium 2.3 mg/dL (1.8-2.4); NT PRO-BNP 643 pg/mL (<450); Phosphorus 3.1 mg/dL (2.5-4.9); Potassium 4.5 mmol/L (3.5-5.1); Protein, Total 5.9 g/dL (6.4-8.2); Sodium Level 142 mmol/L (136-145); Thyroid Stimulating Hormone 0.345 uIU/mL (0.360-3.740); Troponin I < 0.02 ng/mL (0.0-0.045)
--- NOTE | 2020-05-17 06:05 | EKG ---
Test Date: 2020-05-16 Test Time: 14:20:47 Lay Out Maker: ELLIE MEASUREMENT RESULTS: Intervals: Rate: 110 NM: 124 QRSD: 78 QT: 324 QTc: 438 [place]: P: 91 NM: 124 QRS: 269 T: 17 INTERPRETIVE STATEMENTS: Suspect arm lead reversal, interpretation assumes no reversal Sinus tachycardia with premature atrial complexes Right atrial enlargement Right superior axis deviation Right ventricular hypertrophy Possible Anterior infarct, age undetermined Abnormal ECG Compared to ECG 02/02/2020 13:04:07 Atrial premature complex(es) now present Atrial abnormality now present Right superior axis now present Right ventricular hypertrophy now present Left anterior fascicular block no longer present Myocardial infarct finding still present Electronically Signed On 05-17-20 06:03:07 [employer] by Patrick Bhatt
--- NOTE | 2020-05-17 07:27 | P.HP ---
Certification for Inpatient Patient admitted to: Inpatient With expected LOS: >2 Midnights Patient will require the following post-hospital care: None Practitioner: I am a practitioner with admitting privileges, knowledge of patient current condition, hospital course, and medical plan of care. Services: Services provided to patient in accordance with Admission requirements found in Title 42 Section 412.3 of the Code of Federal Regulations Patient History Date of Service: 05/16/20 Reason for admission: Respiratory distress History of Present Illness: Patient is a 74-year-old female came to the hospital with shortness of breath. Patient states that her oxygen level dropped yesterday into a long time for it to come back up. She wears oxygen at home and she put herself on 4 L of oxygen. Her oxygen saturations which came into the emergency room with 78%. She denies any sick contacts. She is not aware of anyone that is had COVID-19 that she is been around. She has COPD and follows up with Pulmonary in [place]. She also has pulmonary arterial hypertension for which she also sees a elevator examiner. 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 She had to stay at that doctor's appointment for about an hr because she could not catch her breath. Her oxygen saturation in the office was in the 80s. After she was able to rest for half an hr her oxygen saturations went up greater than 90%. She is currently feeling better. She will be admitted to the hospital for further evaluation. Allergies Sulfa (Sulfonamide Antibiotics) Allergy (Intermediate, Verified 02/02/20 20:09) Hives/Rash trimethoprim [From Bactrim] Allergy (Intermediate, Verified 02/02/20 20:09) Rash sulfamethoxazole [From Bactrim] Allergy (Verified 02/02/20 20:09) Unknown Home Medications: Ambrisentan [Letairis] 5 mg PO DAILY 11/07/19 Cholecalciferol (Vitamin D3) [Vitamin D3] 2,000 unit PO DAILY 11/07/19 Citalopram [Celexa*] 40 mg PO DAILY 11/07/19 Glucosamine HCl 500 mg PO DAILY 11/07/19 Guaifenesin [Mucinex] 1,200 mg PO DAILY 11/07/19 Montelukast [Singulair*] 10 mg PO DAILY 11/07/19 [place]-3 Fatty Acids [[place]-3] 3,000 mg PO DAILY 11/07/19 Tiotropium [Spiriva Handihaler*] 2 puff IH DAILY 11/07/19 Turmeric Root Extract [Turmeric] 500 mg PO DAILY 11/07/19 ALPRAZolam [Xanax*] 0.5 mg PO DAILY PRN 11/08/19 Acyclovir [Zovirax] 200 mg PO DAILY 11/08/19 Albuterol Inhaler [Ventolin Inhaler] 2 puff IH BID 05/16/20 Mometasone/Formoterol [Dulera 100 Mcg/5 Mcg Inhaler] 2 puff IH BID 05/16/20 predniSONE [Deltasone*] 5 mg PO BID 05/16/20 - Past Medical/Surgical History Has patient received pneumonia vaccine in the past: Yes Diabetic: No -: shingles -: copd -: depression with anxiety -: mycobacterium avium -: neuropathy, -: fatty liver -: osteoporosis -: Pulmonary hypertension -: left upper lobectomy -: l kidney cyst -: tonsillectomy -: csection -: tubal ligation Psychosocial/ Personal History: Patient lives at home with her grandson - Family History Mother Medical History: Lung disease Notes: copd 1978 Father Medical History: Liver disease Notes: cirrhosis Brother Medical History: Cancer Notes: Leukemia Sister Medical History: Lung disease - Social History Smoking Status: Former smoker Alcohol use: No CD- Drugs: No Caffeine use: Yes Place of Residence: Home Review of Systems 10-point ROS is otherwise unremarkable Physical Examination - Vital Signs Temperature: 97.9 F Blood Pressure: 101/58 Pulse: 92 Respirations: 20 Pulse Ox (%): 92 - Physical Exam General: Alert, In no apparent distress, Oriented x3 HEENT: Atraumatic, PERRLA, Mucous membr. moist/pink, EOMI, Sclerae nonicteric Neck: Supple, 2+ carotid pulse no bruit, No LAD, Without JVD or thyroid abnormality Respiratory: Diminished, Crackles/rales Cardiovascular: Regular rate/rhythm, Systolic murmur Gastrointestinal: Normal bowel sounds, Soft and benign, Non-distended, No tenderness Musculoskeletal: No clubbing, No swelling, No tenderness Integumentary: No rashes Neurological: Normal gait, Normal speech, Normal tone, Sensation intact, Cranial nerves 3-12 intact, Normal affect, Abnormal strength Lymphatics: No axilla or inguinal lymphadenopathy - Studies Laboratory Data (last 24 hrs) 05/16/20 14:30: PT 11.4, INR 0.97 05/16/20 14:30: WBC 13.3 H, Hgb 12.9, Hct 39.4, Plt Count 284 05/16/20 14:30: Sodium 139, Potassium 4.2, BUN 10, Creatinine 0.91, Glucose 101, Magnesium 2.3, Total Bilirubin 0.4, AST 68 H, ALT 75, Alkaline Phosphatase 95 Microbiology Data (last 24 hrs): 05/16/20 14:30 Nasopharnyx Influenza Type A Antigen Screen - Final 05/16/20 14:30 Nasopharnyx Influenza Type B Antigen Screen - Final Assessment & Plan - Problems (Diagnosis) (1) Osteoporosis Current Visit: Yes Status: Acute (2) COPD exacerbation Current Visit: No Status: Acute (3) Pulmonary fibrosis Current Visit: No Status: Acute (4) Pulmonary hypertension Current Visit: No Status: Acute - Plan Plan: 1. Continue with albuterol and Atrovent nebs 2. Continue with IV steroids 3. Outpatient pulmonary follow-up 4. Continue 3 L of oxygen Room air O2 sats 5. GI and DVT prophylaxis Discharge Plan: Home Plan to discharge in: Greater than 2 days - Advance Directives Does patient have a Living Will: No Does patient have a Durable POA for Healthcare: No - Code Status/Comfort Care Code Status Assessed: Yes Code Status: Full Code Critical Care: No Time Spent Managing PTS Care (In Minutes): 45
[2020-05-17] MEDS ORDERED: ALPRAZOLAM 0.5 MG TABLET PO PRN (07:56)
[2020-05-17 08:19] VITALS: BP 109/59; TEMP 99
[2020-05-17] MEDS: CITALOPRAM 10 MG TABLET PO SCH (08:46)
[2020-05-17] MEDS: ENOXAPARIN 40 MG/0.4 ML SQ SCH (08:48)
[2020-05-17] MEDS: AZITHROMYCIN IV 500 MG in NA CHLORIDE 0.9% 250 ML IVPB SCH (08:55)
[2020-05-17] MEDS ORDERED: predniSONE 5 MG TAB PO SCH (09:00)
[2020-05-17] MEDS ORDERED: GUAIFENESIN 600 MG SA TAB PO SCH (09:00)
[2020-05-17] MEDS ORDERED: VITAMIN D 1000 UNIT TAB PO SCH (09:00)
[2020-05-17] MEDS ORDERED: TURMERIC ROOT EXTRACT 500 MG PO SCH (09:00)
[2020-05-17] MEDS ORDERED: CITALOPRAM 10 MG TABLET PO SCH ×2 (09:00→19:32)
[2020-05-17] MEDS ORDERED: OMEGA PO SCH (09:00)
[2020-05-17] MEDS ORDERED: ALBUTEROL INHALER 60 PUFF/8 GM IH SCH (09:00)
[2020-05-17] MEDS ORDERED: GLUCOSAMINE HCL 500 MG PO SCH (09:00)
[2020-05-17] MEDS ORDERED: TIOTROPIUM 5 SPRAYS/INHALER IH SCH (09:00)
[2020-05-17] MEDS ORDERED: MONTELUKAST 10 MG TAB PO SCH (09:00)
[2020-05-17] MEDS ORDERED: ACYCLOVIR 400 MG TABLET PO SCH (09:00)
[2020-05-17] MEDS ORDERED: AMBRISENTAN 5 MG PO SCH (09:00)
[2020-05-17] MEDS ORDERED: DULERA 100/5 (MOMETASONE/FORMOTEROL) INHALER IH SCH (09:00)
[2020-05-17] MEDS ORDERED: FATTY ACIDS PO SCH (09:00)
--- NOTE | 2020-05-22 03:29 | P.DS ---
Discharge Date: 05/17/20 Disposition: ROUTINE DISCHARGE Discharge Condition: GOOD Reason for Admission: Respiratory distress - Problems (1) Osteoporosis Status: Acute (2) COPD exacerbation Status: Acute (3) Pulmonary fibrosis Status: Acute (4) Pulmonary hypertension Status: Acute Brief History of Present Illness: Patient is a 74-year-old female came to the hospital with shortness of breath. Patient states that her oxygen level dropped yesterday into a long time for it to come back up. She wears oxygen at home and she put herself on 4 L of oxygen. Her oxygen saturations which came into the emergency room with 78%. She denies any sick contacts. She is not aware of anyone that is had COVID-19 that she is been around. She has COPD and follows up with Pulmonary in [place]. She also has pulmonary arterial hypertension for which she also sees a general technician. 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 She had to stay at that doctor's appointment for about an hr because she could not catch her breath. Her oxygen saturation in the office was in the 80s. After she was able to rest for half an hr her oxygen saturations went up greater than 90%. She is currently feeling better. She will be admitted to the hospital for further evaluation. Hospital Course: Patient's respiratory status is stable. Patient is breathing much better. At this time, patient is stable for discharge home with outpatient follow up. Vital Signs/Physical Exam: Temp Pulse Resp BP Pulse Ox 99 F 87 18 109/59 L 97 05/17/20 08:00 05/17/20 08:00 05/17/20 08:00 05/17/20 08:00 05/17/20 08:00 General: Alert, In no apparent distress, Oriented x3 Laboratory Data at Discharge: WBC 6.1 K/uL (4.3-10.9) D 05/17/20 03:24 Hgb 11.7 g/dL (12.0-15.0) L 05/17/20 03:24 Hct 34.7 % (36.0-45.0) L 05/17/20 03:24 Plt Count 248 K/uL (152-406) 05/17/20 03:24 PT 11.4 SECONDS (9.5-12.5) 05/16/20 14:30 INR 0.97 05/16/20 14:30 Sodium 142 mmol/L (136-145) 05/17/20 03:24 Potassium 4.5 mmol/L (3.5-5.1) 05/17/20 03:24 BUN 10 mg/dL (7-18) 05/17/20 03:24 Creatinine 0.70 mg/dL (0.55-1.3) 05/17/20 03:24 Glucose 121 mg/dL (74-106) H 05/17/20 03:24 Phosphorus 3.1 mg/dL (2.5-4.9) 05/17/20 03:24 Magnesium 2.3 mg/dL (1.8-2.4) 05/17/20 03:24 Total Bilirubin 0.2 mg/dL (0.2-1.0) 05/17/20 03:24 AST 31 U/L (15-37) 05/17/20 03:24 ALT 56 U/L (12-78) 05/17/20 03:24 Alkaline Phosphatase 75 U/L (45-117) 05/17/20 03:24 Troponin I < 0.02 ng/mL (0.0-0.045) 05/17/20 03:24 Triglycerides 42 mg/dL (<150) 05/17/20 03:24 Cholesterol 123 mg/dL (<200) 05/17/20 03:24 HDL Cholesterol 49 mg/dL (40-60) 05/17/20 03:24 Cholesterol/HDL Ratio 2.51 05/17/20 03:24 Home Medications: Ambrisentan [Letairis] 5 mg PO DAILY 11/07/19 Cholecalciferol (Vitamin D3) [Vitamin D3] 2,000 unit PO DAILY 11/07/19 Citalopram [Celexa*] 40 mg PO DAILY 11/07/19 Glucosamine HCl 500 mg PO DAILY 11/07/19 Guaifenesin [Mucinex] 1,200 mg PO DAILY 11/07/19 Montelukast [Singulair*] 10 mg PO DAILY 11/07/19 [place]-3 Fatty Acids [[place]-3] 3,000 mg PO DAILY 11/07/19 Tiotropium [Spiriva Handihaler*] 2 puff IH DAILY 11/07/19 Turmeric Root Extract [Turmeric] 500 mg PO DAILY 11/07/19 ALPRAZolam [Xanax*] 0.5 mg PO DAILY PRN 11/08/19 Acyclovir [Zovirax] 200 mg PO DAILY 11/08/19 Albuterol Inhaler [Ventolin Inhaler*] 2 puff IH BID 05/16/20 Mometasone/Formoterol [Dulera 100 Mcg/5 Mcg Inhaler] 2 puff IH BID 05/16/20 predniSONE [Deltasone*] 5 mg PO BID 05/16/20 Cefdinir [Omnicef] 300 mg PO BID #14 capsule 05/17/20 predniSONE [Prednisone*] 20 mg PO BID #20 tab 05/17/20 New Medications: Cefdinir [Omnicef] 300 mg PO BID #14 capsule predniSONE [Prednisone*] 20 mg PO BID #20 tab Patient Discharge Instructions: OK TO DC IV AND DC HOME. FOLLOW-UP WITH PRIMARY CARE PROVIDER IN 1-2 WEEKS. FOLLOW-UP WITH CARDIOLOGY AND PULMONARY IN 2-4 WEEKS. RETURN TO THE ER IF SYMPTOMS WORSEN. CALL or TEXT DR. SALCEDO AT [phone] IF ANY QUESTIONS REGARDING HOSPITAL STAY. PLEASE CALL THE FLOOR AT [phone] IF ANY MEDICATION OR NURSING QUESTIONS. Diet: AHA Activity: Ad micky Followup: [facility] [Provider Group] (Follow up in 2-4 weeks, call to schedule an appointment ) David Mares MD [ACTIVE - CAN ADMIT] - (children's entertainer- follow up in 2-4 weeks, call to schedule an appointment ) Refugio Crawford DO [ACTIVE - CAN ADMIT] - 1-2 Weeks (PCP- call to schedule an appointment ) Time spent managing pt's care (in minutes): 35
== END 2020-05-17 09:35 | disposition home or self-care (01) ==
LOC: ER 13:44 → ERHOLD 15:27 → INTOOBSV 15:27 → 4TH 21:04
PROVIDERS: ADMIT Hospitalist; ATTEND Hospitalist
DX: J44.1 Chronic obstructive pulmonary disease with (acute) exacerbation (principal); M81.0 Age-related osteoporosis without current pathological fracture; I27.20 Pulmonary hypertension, unspecified; Z99.81 Dependence on supplemental oxygen; Z20.828 Contact with and (suspected) exposure to other viral communicable diseases; R94.31 Abnormal electrocardiogram [ECG] [EKG]; J84.10 Pulmonary fibrosis, unspecified; F41.8 Other specified anxiety disorders; G62.9 Polyneuropathy, unspecified; K76.0 Fatty (change of) liver, not elsewhere classified; Z87.891 Personal history of nicotine dependence
CPT/HCPCS: 96365; 93005; 87040 ×2; 85025 ×2; 80048; 36415; 83735 ×2; 84100; 85610; 80061; 80076; 83605; 84443; 84484 ×3; 84439; 80053; 84145; 83880 ×2; 87804 ×2; 71045; 94640; 82805; 94760 ×4; 96375; 99285; U0003; J0456; J1650 ×2; J0696; J7050; J7030; J2920; 81003; 81015; J7512

== ENCOUNTER 2020-10-01 19:56 | Observation (INO) | payer MEDICARE, OTHER ==
--- OUTSIDE RECORDS SUMMARY | 2020-10-01 19:59 | XMS REPORT | Continuity of Care Document ---
:1945 Author Organization [facility] t Address [address] [place] [address] Care Team Providers Name Role Phone Jose Crawford DO Primary Care Physician KAYE Attending Clinician Unavailable BANDEALI Attending Clinician Unavailable JUNG Attending Clinician Unavailable Kevin FLETCHER Attending Clinician Unavailable JANUSZ MORFIN Attending Clinician Unavailable BANDEALI Admitting Clinician Unavailable JUNG Admitting Clinician Unavailable Cata MELISSA Admitting Clinician Unavailable JANUSZ MORFIN Admitting Clinician Unavailable Payers Payer Name Policy Type Policy Effective Date Expiration Date Sour ce Number MEDICAREMEDICARE A [id number] 2001 SHREYA Bloom [id number] 2001-P 00:00:00 - Medical resentMedicare Center MCR [id number] [address] [facility] SUPPLEMENT/INDIVIDUALA 00:00:00 - Medical [id number] /06/2017-PresentMedigap Problems Condition Condition Condition Status Onset Resolution Last Treating Co mments Source Name Details Category Date Date Treatment Clinician Date Acute Acute Disease Active [facility]emic 9-22 [facility] - respirator respirator 00:00: Me dical y failure y failure 00 Cent er Heart Heart Disease Active 2017-[address] [facility] failure failure 2-14 [facility] - 00:[facility]: Medical 00 Center Allergies, Adverse Reactions, Alerts Allergy Allergy Status Severity Reaction(s) Onset Inactive Treating Comm ents Source Name Type Date Date Clinician Sulfa Propensi Active Swelling 2017-[address] [facility] (Sulfona ty to 08-11 [facility] - mide adverse 00:00: Medical Antibiot reaction 00 Center ics) s Bactrim Adverse Active Info Not [facility] DS Reaction Available [facility] Social History Social Habit Start Date Stop Date Quantity Comments Source History SDOH [facility] - Alcohol Std Drinks Medica Center History SDOH [facility] - Alcohol Binge Medical [facility] ter Sex Assigned At [facility] - [facility] History of tobacco Current smoker [facility] use [facility] Cigarettes smoked 2018-06-14 2018-06-[address] [facility] - current (pack per 00:00:00 00:00:00 [facility] day) - Reported Cigarette 2018-06-14 2018-06-[address] [facility] - pack-years 00:00:00 00:00:00 [facility] Tobacco use and 2018-06-14 2018-06-[address] [facility] - exposure 00:00:00 00:00:00 [facility] Alcohol intake 2018-06-14 2018-06-14 Current drink[facility] of [facility] 00:[facility]00 00:00:00 alcohol (finding) Medical Center History SDOH 2018-06-10 2018-06-[address] [facility] - Alcohol Frequency 00:00:00 00:00:00 [facility] Alcohol Comment 2018-06-10 2018-06-[address] [facility] - 00:00:00 00:00:00 [facility] Smoking Status Start Date Stop Date Source Former smoker 2018-06-14 00:00:00 2018-06-14 00:00:[address] [facility] - [facility] Medications Ordered Filled Start Stop Current Ordering Indication Dosage Frequency Signature Comments Components Source Medication Medication Date Date Medication? Clinician (SIG) Name Name Negro Tom Yes Refugio [address] 4-17 [facility] turmeric Yes QD Take by [facility] 400 mg Cap 9-25 mouth [facility] - 14:07: daily. [address] omega-3 Yes 1g QD Take [address] [facility] fatty 9-25 by mouth [facility] - acids-fish 14:07: daily. Medic al oil 50 Center 340-1,000 mg Cap per capsule citalopram Yes 40mg QD Take [address] (CELEXA) 40 9-25 by mouth Luke [facility] - MG tablet 14:07: daily. Medica l 50 Center montelukast 2019 Yes 10mg QD Take [address] [facility] (SINGULAIR) 9-25 by mouth Luke s - 10 mg 14:07: nightly. Medical tablet [address] [place] guaiFENesin Yes 1200mg QD Take 1,[address] (MUCINEX) 9-25 mg by [facility]ukes - 600 mg 12 14:07: mouth Medical hr tablet 50 daily. [place] glucosamine Yes QD Take by [facility] [...] capsule 50 (two) Center times daily. cholecalcif 2019 Yes 2000U QD Take 2,[address] [place], 9-25 Units by [facility]ukes - vitamin D3, 14:07: mouth Medic al (VITAMIN 50 daily . [place] D3) 1,000 unit capsule tiotropium 2019 Yes QD Inhale by [facility] [...] sanya 50 needed for Center Anxiety. glucosamine 2018- Yes 1{tbl} Q.[id number] Take [address] [facility] -chondroiti 9-25 [id number] tablet by [facility] - n 500-400 14:07: [...] 10 MG 14:07: daily. Medical tablet 50 Center Prolia Prolia Yes Refugio as [facility] directed [facility] Nasonex Nasonex Yes Refugio [address] in each [facility] - nostril [facility]ics Gypsum 3 Gypsum 3 Yes Refugio 1 capsule CH I [...] HFA Crawford needed [facility] Celexa Celexa Yes Refugio TAKE [address] [facility] TABLET BY [facility] - MOUTH ONCE Memoria DAILY l Outpati ent Clinics Immunizations Ordered Filled Immunization Date Status Comments [facility] e Immunization Name Name Prevnar 13 Prevnar 13 2019-05-[address] [facility] - -Pneumonia Vaccine -Pneumonia Vaccine 00:00:00 [facility] Outpatient [facility] Procedures Procedure Date / Time Performed Performing Clinician [facility] e SARS-COV2/RT-PCR ([facility] 2020-02-02 12:25:00 [facility] SARS-COV2/RT-PCR ([facility] 2019-11-24 00:25:00 [facility] SARS-COV2/RT-PCR ([facility] 2019-11-07 16:39:00 [facility] Plan of Care Planned Activity Planned Date Details Comments Source Future Scheduled 2020-02-28 INFLUENZA VACCINE (#1) [facility] Test 00:00:00 [code = INFLUENZA Medical Ce nter VACCINE (#1)] Future Scheduled 2008-12-23 PNEUMOCOCCAL 65+ YRS [facility] - Test 00:00:00 (1 of 1 - Medical Center [id number]) [code = PNEUMOCOCCAL 65+ YRS (1 of 1 - [id number] PCV13)] Future Scheduled 2002-11-[address] [facility] - Test 00:00:00 WELLNESS (YEAR 2 or Medical Center FIRST YEAR if no IPPE) [code = MEDICARE ANNUAL WELLNESS (YEAR 2 or FIRST YEAR if no IPPE)] Encounters Start End Encounter Admission Attending Care Care Encounter Source Date/Time Date/Time Type Type Clinicians Facility Department ID 2020-09-27 2020-09-27 Outpatient [facility] [id number] [facility] 2020-08-31 2020-08-31 [facility] [id number] [facility] 2020-08-07 2020-08-07 Outpatient [facility] [id number] [facility] 2020-08-02 2020-08-02 Outpatient [facility] [id number] [facility] 2020-07-11 2020-07-11 Out[facility] [id number] [facility] 2020-06-15 2020-06-15 Outpatient [facility] [id number] [place] 00:00:00 00:00:00 MAKEDA [address] 2020-06-15 2020-06-15 Outpatient [facility] [id number] [place] 00:00:00 00:00:00 MAKEDA [address] 2020-05-02 2020-05-02 Outpatient [facility] [id number] [facility] 2020-04-04 2020-04-04 Outpatient [facility] [id number] [facility] 2020-03-20 2020-03-20 Outpatient [facility] [id number] [facility] 2020-02-08 2020-02-08 [facility] [id number] 10:15:00 10:15:00 [place] s - Drive [facility] Medicine l Medicine Outpati ent Clinics 2020-01-27 2020-01-27 [facility] [id number] 11:45:00 11:45:00 [place] [employer] s - Drive [facility] Medicine l Medicine Outpati ent Clinics 2020-01-10 2020-01-10 [facility] [id number] 13:00:00 13:00:00 [place] Luke s - Drive [facility] Medicine l Medicine Outpati ent Clinics 2020-01-02 2020-01-02 [facility] [id number] 16:56:00 16:56:00 [place] [employer] s - Drive [facility] Medicine l Medicine Outpati ent Clinics 2019-12-28 2019-12-28 [facility] [id number] 11:00:00 11:00:00 [place] Luke s - Drive [facility] Medicine l Medicine Outpati ent Clinics 2019-12-28 2019-12-28 [facility] [id number] 11:00:00 11:00:[address] Luke [place] - Drive [facility] Medicine l Medicine Outpati ent Clinics 2019-11-14 2019-11-14 [facility] [id number] 10:45:00 10:45:00 [place] [employer] s - Drive [facility] Medicine l Medicine Outpati ent Clinics 2019-10-31 2019-10-31 [facility] [id number] 10:54:00 10:54:00 [place] [facility] Medicine Outpati ent Clinics 2019-10-14 2019-10-14 [facility] [id number] 09:59:00 09:59:00 t [email or web address] [facility] Medicine Outpati ent Clinics 2019-09-29 2019-09-29 [facility] [id number] 14:30:00 14:30:00 t [email or web address] [facility] Medicine Outpati ent Clinics 2019-09-22 2019-09-22 [facility] [id number] 16:54:00 16:54:00 t [email or web address] [facility] Medicine Outpati ent Clinics 2019-08-23 2019-08-23 Outpatient SHELBIE [facility] [id number] [place] 00:00:00 00:00:00 JANEL Ferguson[address] [facility] 2019-08-16 2019-08-16 [facility] [id number] 09:30:00 09:30:00 t [email or web address] [facility] Medicine Outpati ent Clinics 2019-07-21 2019-07-21 [facility] [id number] 08:00:00 08:00:00 t [email or web address] [facility] Medicine Outpati ent Clinics 2019-07-12 2019-07-15 Inpatient JUNG [facility] [id number] [place] 00:00:00 00:00:00 GORDON [address] [facility] 2019-06-30 2019-06-30 [facility] [id number] 13:00:00 13:00:00 t [email or web address] [facility] Medicine Outpati ent Clinics 2019-06-27 2019-06-27 [facility] [id number] 09:57:00 09:57:00 t [email or web address] [facility] Medicine Outpati ent Clinics 2019-05-11 2019-05-11 [facility] [id number] 11:15:00 11:15:00 t [email or web address] [facility] l Medicine Outpati ent Clinics 2019-04-19 2019-04-19 Outpatient KAYE [facility] [id number] [place] 00:00:00 00:00:00 MAKEDA [address] 2019-04-19 2019-04-19 Outpatient KAYE [facility] [id number] [place] 00:00:00 00:00:00 MAKEDA [address] 2019-04-11 2019-04-11 [facility] [id number] 13:15:00 13:15:00 [place] s - Drive [facility] Medicine l Medicine Outpati ent Clinics 2019-03-28 2019-03-28 [facility] [id number] 14:30:00 14:30:00 [place] s - Drive [facility] Medicine l Medicine Outpati ent Clinics 2019-03-08 2019-03-08 [facility] [id number] 10:45:00 10:45:00 [place] s - Drive [facility] Medicine l Medicine Outpati ent Clinics 2019-02-18 2019-02-18 [facility] [id number] 10:42:00 10:42:00 t [place] s - Drive [facility] Medicine l Medicine Outpati ent Clinics 2019-01-25 2019-01-25 [facility] [id number] 10:00:00 10:00:00 [place] s - Drive [facility] Medicine l Medicine Outpati ent Clinics 2019-01-05 2019-01-05 [facility] [id number] 11:44:00 11:44:00 t [place] s - Drive [facility] Medicine l Medicine Outpati ent Clinics 2018-10-27 2018-10-27 [facility] [id number] 10:15:00 10:15:00 [place] Luke s - Drive [facility] Medicine l Medicine Outpati ent Clinics 2018-09-13 2018-09-13 [facility] [id number] 10:00:00 10:00:00 t [place] s - Drive [facility] Medicine l Medicine Outpati ent Clinics 2018-08-11 2018-08-11 [facility] [id number] 10:00:00 10:00:[address] Luke s - Drive [facility] Medicine l Medicine Outpati ent Clinics 2018-07-19 2018-07-19 [facility] [id number] 09:15:00 09:15:[address] Luke s - Drive [facility] Medicine l Medicine Outpati ent Clinics 2018-06-07 2018-06-07 [facility] [id number] 08:00:00 08:00:[address] Luke s - Drive [facility] Medicine l Medicine Outpati ent Clinics 2018-02-26 2018-02-26 [facility] [id number] 09:30:00 09:30:[address] Luke s - Drive [facility] Medicine l Medicine Outpati ent Clinics 2018-01-08 2018-01-08 [facility] [id number] 10:30:00 10:30:[address] Luke s - Drive [facility] Medicine l Medicine Outpati ent Clinics 2017-12-09 2017-12-09 [facility] [id number] 11:06:00 11:06:[address] Luke s - [address] [facility] l Medicine Outpati ent Clinics 2017-12-09 2017-12-09 [facility] [id number] 10:15:00 10:15:[address] Luke s - Drive [facility] Medicine l Medicine Outpati ent Clinics 2017-11-18 2017-11-18 [facility] [id number] 10:32:00 10:32:[address] Luke s - Drive [facility] Medicine l Medicine Outpati ent Clinics 2017-11-18 2017-11-18 [facility] [id number] 09:00:00 09:00:[address] Luke s - Drive [facility] Medicine l Medicine Outpati ent Clinics 2017-09-30 2017-09-30 [facility] [id number] 10:30:00 10:30:[address] [facility] Results Test Description Test Time Test Comments Results Result Comments Source SARS-CoV2/RT-PCR ([facility] & Ref Labs) 2020-02-03 01:04:00 Test Item Value Reference Range Interpretation Comme nts SARS-COV2/RT-PCR (test code = Negative Not Detected, 60693-7) Negative, See external report for linked test SARS-COV-2 PERFORMING LAB [facility] KAIA (test code = 60284-3) TATA (test code = TATA) Negative result [...] of the Act. Fact Sheet for Healthcare Providers:https://www.Jini. comScore/sites/default/files/produ ct/documents/Fact_Sheet_HC_Ny ensqvja_Qgup_BSAN-AvR-7.pdf Fact Sheet for Healthcare Patients:https://www.Jini.[employer] om/sites/default/files/produc t/documents/Fact_Sheet_Nikkie martinezpk_Opjs_GGTN-SrZ-3.pdf Performing Laboratory:[facility] [place] [address] [facility]F [facility]2020-02-03 01:04:00 Test Item Value Reference Range Interpretation Comments SARS-COV2/RT-PCR (test Negative Not Detected, Negative, code = 8370371) See external report for linked test SARS-COV-2 PERFORMING LAB [facility] KAIA (test code = 7430252) Negative result for this test determines that [...] 564(g) of the Act.Fact Sheet for Healthcare Providers:https://www.Jini.com/sites/default/files/product/documents/Fact_Keaton l_UP_Yqifopmdy_Vyee_BCUX-HcX-6.pdfFact Sheet for Healthcare Patients:https://www.Jini.comScore/sites/default/files/product/ documents/Vpcy_Ynvsr_Ljfgppai_Tddq_KASF-DxU-9.pdfPerforming Laboratory:[facility], [place] [address]AFZX-KIB5/RT-PCR ([facility])2019-11-24 06:46:00 Test Item Value Reference Range Interpretation Comments SARS-COV2/RT-PCR (test Not Detected Not Detected, Negative code = 9144864) SARS-COV-2 PERFORMING LAB [facility] (test code = 1045694) Negative results do not preclude SARS-CoV-2 infection [...] of the Act.Fact Sheet for Healthcare Pro viders:https://www.[employer].comScore/Documents/Xpert%20Xpress%20SARS%20CoV-2/Fact%20Sh eets/302-9362%73DPMP-NUU-6%20HEALTHCARE%20PROVIDERS%20FACT%20SHEET.pdfFact Sheet for Healthcare Patients:https://www.Stockbet.com.comScore/Documents/Xpert%20Xpress%20SARS%20CoV-2/Fact%20Sheets/302-3801%20SARS-COV -2%20PATIENT%20FACT%20SHEET.pdfPerforming Laboratory:[facility], [place] [address]VQLH-FUX8/RT-PCR ([facility] & REF LABS) 2019-11-07 23:10:00 Test Item Value Reference Range Interpretation Comments SARS-COV2/RT-PCR (test Not Detected Not Detected, Negative code = 5474926) SARS-COV-2 PERFORMING LAB [facility] (test code = 2386243) Negative results do not preclude SARS-CoV-2 infection [...] of the Act.Fact Sheet for Healthcare Pro viders:https://www.HID Global/Documents/Xpert%20Xpress%20SARS%20CoV-2/Fact%20Sh eets/302-3802%51KVVQ-ORI-7%20HEALTHCARE%20PROVIDERS%20FACT%20SHEET.pdfFact Sheet for Healthcare Patients:https://www.Cinnamon/Documents/Xpert%20Xpress%20SARS%20CoV-2/Fact%20Sheets/302-3801%20SARS-COV -2%20PATIENT%20FACT%20SHEET.pdfPerforming Laboratory:[facility], [place] [address]GMFNIY CULTURE + GRAM [id number] 12:13:00 Test Item Value Reference Range Interpretation [...] 0-5 epithelial (BEAKER) (test code cells = 724404) GRAM STAIN RESULT No organisms seen (BEAKER) (test code = 181667) 4+ Normal respiratory yenni presentVANCOMYCIN LEVEL, [id number] 09:25:00 Test Item Value Reference Range Interpretation Comments VANCOMYCIN TROUGH (BEAKER) (test 11.9 ug/mL 10.0-20.0 code = 522) Please draw 30 min prior to scheduled dose.If vancomycin trough level > 20 mcg/mL, hold next vancomycin dose, and contact MD and pharmacist.CBC W/PLT COUNT & AUTO [id number] 06:38:00 Test Item Value Reference Range Interpretation [...] (BEAKER) (test code = 2801) BASIC METABOLIC [id number] 05:44:00 Test Item Value Reference Range Interpretation [...] 697) EGFR (BEAKER) (test 89 mL/min/1.73 ESTIMA LISA GFR IS code = 1092) sq m NOT ACCURATE CREATININE CLEARANCE IN PREDICTING GLOMERULAR FILTRATION RATE . ESTIMATED GFR I S NOT APPLICABLE FOR DIALYSIS PATIEN TS. BASIC METABOLIC [id number] 05:45:00 Test Item Value Reference Range Interpretation [...] 697) EGFR (BEAKER) (test 87 mL/min/1.73 ESTIMA LISA GFR IS code = 1092) sq m NOT ACCURATE CREATININE CLEARANCE IN PREDICTING GLOMERULAR FILTRATION RATE . ESTIMATED GFR I S NOT APPLICABLE FOR DIALYSIS PATIEN TS. CBC W/PLT COUNT & AUTO [id number] 05:39:00 Test Item Value Reference Range Interpretation [...] (BEAKER) (test code = 2801) RESPIRATORY PANEL [id number] 20:29:00 Test Item Value Reference Range Interpretation [...] decisions. This sample was tested at the [facility] Molecular Diagnostics Laboratory using the L3 FilmArray Respiratory Panel. It is FDA cleared and has been verified and approved by the [facility] for clinical use on nasopharyngeal swab specimens.The performance of the FilmArrayRP has not been established in individuals who received influenza vaccine. Recent administration ofa nasal influenza vaccine may cause false positive results for Influenza A and/orInfluenza B.VANCOMYCIN LEVEL, [id number] 10:07:00 Test Item Value Reference Range Interpretation Comments VANCOMYCIN TROUGH (BEAKER) (test 10.0 ug/mL 10.0-20.0 code = 522) Please draw 30 min prior to scheduled dose.If vancomycin trough level > 20 mcg/mL, hold next vancomycin dose, and contact MD and pharmacist.BASIC METABOLIC [id number] 07:57:00 Test Item Value Reference Range Interpretation [...] 697) EGFR (BEAKER) (test 79 mL/min/1.73 ESTIMA LISA GFR IS code = 1092) sq m NOT ACCURATE CREATININE CLEARANCE IN PREDICTING GLOMERULAR FILTRATION RATE . ESTIMATED GFR I S NOT APPLICABLE FOR DIALYSIS PATIEN TS. CBC W/PLT COUNT & AUTO [id number] 07:43:00 Test Item Value Reference Range Interpretation [...] = 2801) CBC W/PLT COUNT & AUTO [id number] 10:21:00 Test Item Value Reference Range Interpretation [...] detection limit of the test. LEGIONELLA ANTIGEN, [id number] 09:40:00 Test Item Value Reference Range Interpretation Comments L. PNEUMOPHILA Negative - see Negative fo r L. SEROGP 1 UR AG comment pneumophila (BEAKER) (test code serogrou p 1 antigen, = 1156) suggesting no r ecent or current infe ction with this serog roup. Legionellosis c annot be ruled out si nce other serogroup s and species may cau se disease. BASIC METABOLIC [id number] 08:58:00 Test Item Value Reference Range Interpretation [...] 697) EGFR (BEAKER) (test 72 mL/min/1.73 ESTIMA LISA GFR IS code = 1092) sq m NOT ACCURATE CREATININE CLEARANCE IN PREDICTING GLOMERULAR FILTRATION RATE . ESTIMATED GFR I S NOT APPLICABLE FOR DIALYSIS PATIEN TS. [id number] 08:58:00 Test Item Value Reference Range Interpretation Comments CREATININE (BEAKER) 0.78 mg/dL 0.57-1.25 (test code = 358) EGFR (BEAKER) (test 72 mL/min/1.73 ESTIMA LISA GFR IS code = 1092) sq m NOT ACCURATE CREATININE CLEARANCE IN PREDICTING GLOMERULAR FILTRATION RATE . ESTIMATED GFR I S NOT APPLICABLE FOR DIALYSIS PATIEN TS. BASIC METABOLIC [id number] 07:10:00 Test Item Value Reference Range Interpretation [...] 697) EGFR (BEAKER) (test 78 mL/min/1.73 ESTIMA LISA GFR IS code = 1092) sq m NOT ACCURATE CREATININE CLEARANCE IN PREDICTING GLOMERULAR FILTRATION RATE . ESTIMATED GFR I S NOT APPLICABLE FOR DIALYSIS PATIEN TS. PROTHROMBIN TIME/[id number] 07:01:00 Test Item Value Reference Range Interpretation [...]
[2020-10-01] MEDS ORDERED: NA CHLORIDE 0.9% 1,000 ML ONE ×2 (20:51→23:30)
[2020-10-01 21:03] LABS: Absolute Lymphocytes (CBC) 1.3 K/uL (0.7-4.9); Basophils % 0.5 % (0-1.3); Hematocrit 40.1 % (36.0-45.0); Lymphocytes % 10.2 % (15.3-44.8); MPV 7.6 fL (7.6-11.3); RBC Red Blood Cell Count 4.34 M/uL (3.86-4.86)
[2020-10-01] MEDS ORDERED: METHYLPREDNISOLONE 125 MG INJ ONE (21:05)
[2020-10-01] MEDS ORDERED: ALBUTEROL 2.5 MG/3 ML NEB SOL ONE (21:05)
[2020-10-01] MEDS ORDERED: IPRATROPIUM BROM 0.5MG/2.5ML ONE (21:05)
[2020-10-01 21:08] LABS: Protime INR 0.94
[2020-10-01 21:20] LABS: Albumin 2.9 g/dL (3.4-5.0); Bilirubin Direct 0.1 mg/dL (0-0.2); Bilirubin Total 0.3 mg/dL (0.2-1.0); CKMB Creatine Kinase MB 4.2 ng/mL (0.3-3.6); Potassium 4.4 mmol/L (3.5-5.1); Troponin (Emerg Dept Use Only) 0.03 ng/mL (0.0-0.045)
[2020-10-01 22:05] LABS: Arterial Blood Carboxyhemoglob 1.5 % (0-1.5); Blood Gas Oxyhemoglobin 85.4 % (94-97); Blood O2 Saturation 87.4 % (92-98.5)
[2020-10-01 23:39] LABS: Urine Blood Trace-intact (Negative); Urine Glucose Negative (Negative); Urine Protein Negative (Negative); Urine Specific Gravity 1.015 (1.005-1.030); Urine pH 5.5 (5.0-7.0)
--- NOTE | 2020-10-02 03:31 | ER ---
Nurse's Notes [facility] Name: Seema Romo Age: 74 yrs Sex: Female : 1945 Arrival Date: 10/01/2020 Time: 19:57 Bed 3 Private MD: Diagnosis: Acute dyspnea. Acute exacerbation COPD. Hypoxia. Abdominal pain. Pancreatis Presentation: 10/01 19:58 Chief complaint: EMS states: she is from home complaining of difficulty breathing and mg2 bilateral leg swelling today, was walking at the house when oxygen saturation dopeed to 68%, placed on NC went up to 71% and changed to NRM and went up to 100%. STach on the monitor. Coronavirus screen: Client denies travel out of the [place] in the last 14 days. Ebola Screen: No symptoms or risks identified at this time. Initial Sepsis Screen: Does the patient meet any 2 criteria? RR > 20 per min. HR > 90 bpm. Yes Does the patient have a suspected source of infection? Yes: Productive cough/pneumonia. Risk Assessment: Do you want to hurt yourself or someone else? Patient reports no desire to harm self or others. Onset of symptoms was October 01, 2020. 19:58 Method Of Arrival: EMS: [facility] mg2 19:58 Acuity: VADIM 2 mg2 Triage Assessment: 21:38 General: Behavior is calm. mg2 Historical: - Allergies: 20:22 Bactrim; mg2 20:22 Sulfa (Sulfonamide Antibiotics); mg2 - PMHx: 20:22 Anxiety; COPD; degenerative joint disease; Depression; fatty liver; Mycobacterium Avium mg2 Complex; neuropathy; Osteoporosis; shingles; - Immunization history:: Flu vaccine status is unknown. - Social history:: Smoking status: Patient/guardian denies using tobacco, Patient/guardian denies using alcohol, street drugs, IV drugs. Screenin:36 Abuse screen: Denies threats or abuse. Denies injuries from another. Nutritional mg2 screening: No deficits noted. Tuberculosis screening: No symptoms or risk factors identified. Fall Risk IV access (20 points). Assessment: 20:45 General: Appears distressed. Pain: Denies pain. Neuro: Level of Consciousness is awake, mg2 alert, obeys commands, Oriented to person, place, time, situation. Cardiovascular: Capillary refill < 3 seconds Patient's skin is warm and dry. Respiratory: Airway is patent Respiratory effort is even, labored, Respiratory pattern is tachypnea. Respiratory: Reports cough that is productive. GI: No signs and/or symptoms were reported involving the gastrointestinal system. : No signs and/or symptoms were reported regarding the genitourinary system. EENT: No signs and/or symptoms were reported regarding the EENT system. Derm: Skin is intact, is healthy with good turgor, Skin is pink, warm \T\ dry. normal. Musculoskeletal: Circulation, motion, and sensation intact. Capillary refill < 3 seconds. 23:42 Reassessment: Patient appears in no apparent distress at this time. Patient and/or mg2 family updated on plan of care and expected duration. Pain level reassessed. Patient is alert, oriented x 3, equal unlabored respirations, skin warm/dry/pink. 10/02 01:19 Reassessment: Patient appears in no apparent distress at this time. Patient and/or mg2 family updated on plan of care and expected duration. Pain level reassessed. Patient is alert, oriented x 3, equal unlabored respirations, skin warm/dry/pink. 02:19 Reassessment: Patient appears in no apparent distress at this time. Patient and/or jb4 family updated on plan of care and expected duration. Pain level reassessed. Patient is alert, oriented x 3, equal unlabored respirations, skin warm/dry/pink. Vital Signs: 10/01 19:58 BP 113 / 72; Pulse 114; Resp 28; Temp 98.7; Pulse Ox 91% on 3 lpm NC; mg2 20:32 Weight 41.73 kg; Height 4 ft. 9 in. (144.78 cm); mg2 21:36 BP 117 / 68; Pulse 100; Resp 24; Pulse Ox 93% on 3 lpm NC; mg2 23:00 BP 118 / 54; Pulse 107; Resp 22; Pulse Ox 94% on 3 lpm NC; mg2 23:42 BP 127 / 58; Pulse 105; Resp 22; Pulse Ox 91% on 3 lpm NC; mg2 10/02 01:23 BP 106 / 61; Pulse 91; Resp 22; Pulse Ox 92% on 4 lpm NC; mg2 02:19 BP 108 / 61; Pulse 87; Resp 23; Pulse Ox 96% on 4 lpm NC; jb4 04:51 BP 105 / 57; Pulse 91; Resp 20; Pulse Ox 96% on 3 lpm NC; mg2 10/01 20:32 Body Mass Index 19.91 (41.73 kg, 144.78 cm) mg2 ED Course: 10/01 19:57 Patient arrived in ED. mw2 19:58 Catarino Holland RN is Primary Nurse. mg2 19:58 Reynaldo Whittaker MD is Attending Physician. pkl 20:22 Triage completed. mg2 20:23 Arm band placed on. mg2 21:00 Inserted saline lock: 20 gauge in right forearm, using aseptic technique. Blood mg2 collected. 21:35 No provider procedures requiring assistance completed. mg2 21:36 Patient has correct armband on for positive identification. monitor worker on. Pulse mg2 ox on. NIBP on. 22:18 Chest Single View In Process Unspecified. EDMS 04 02:13 CT Chest For PE Angio In Process Unspecified. EDMS 02:13 CT Abd/Pelvis - IV Contrast Only In Process Unspecified. EDMS 03:28 Edison Sanchez is Hospitalizing Provider. pkl 07:06 Primary Nurse role handed off by Catarino Holland RN bd Administered Medications: 10/01 20:43 Drug: NS 0.9% (30 ml/kg) 30 ml/kg Route: IV; Rate: bolus; Site: right forearm; mg2 20:52 Drug: Albuterol - atroVENT (ipratropium) (3:1) (2.5 mg - 0.5 mg) 3 ml Route: Nebulizer; mg2 22:08 Follow up: Response: No adverse reaction mg2 20:52 Drug: SOLU-Medrol 125 mg Route: IVP; Site: right forearm; mg2 22:07 Follow up: Response: No adverse reaction mg2 23:42 Drug: NS 0.9% 1000 ml Route: IV; Rate: 125 ml/hr; Site: right forearm; mg2 Outcome: 10/02 03:30 Decision to Hospitalize by Provider. pkl 04:51 Admitted to ER Hold. [facility]. mg2 04:51 Condition: stable 04:51 Instructed on the need for admit, Demonstrated understanding of instructions. 07:48 Patient left the ED. hb Signatures: Dispatcher [employer] EDMS Cynthia Ibarra bd Reynaldo Whittaker MD MD pkl Magdalena Norris RN RN Hari Reed, RN RN jb4 Bar Jarvis 2 Catarino Holland, RN RN mg2 Corrections: (The following items were deleted from the chart) 10/01 21:36 20:00 Inserted saline lock: 20 gauge in right forearm, using aseptic technique. Blood mg2 collected. mg2 23:23 23:00 BP 118 / 54; Pulse 107bpm; Resp 54bpm; Pulse Ox 94% 3 lpm Nasal Cannula; mg2 mg2
--- NOTE | 2020-10-02 03:31 | EDPHYS ---
Physician Documentation [facility] Name: Seema Romo Age: 74 yrs Sex: Female : 1945 Arrival Date: 10/01/2020 Time: 19:57 Bed 3 Private MD: ED Physician Reynaldo Whittaker HPI: 10/02 03:10 This 74 yrs old Female presents to ER via EMS with unknown complaint. pkl 03:10 The patient has shortness of breath at rest. pkl 03:23 Onset: The symptoms/episode began/occurred today. Associated signs and symptoms: pkl Pertinent positives: productive cough, abdominal pain. Historical: - Allergies: 10/01 20:22 Bactrim; mg2 20:22 Sulfa (Sulfonamide Antibiotics); mg2 - PMHx: 20:22 Anxiety; COPD; degenerative joint disease; Depression; fatty liver; Mycobacterium Avium mg2 Complex; neuropathy; Osteoporosis; shingles; - Immunization history:: Flu vaccine status is unknown. - Social history:: Smoking status: Patient/guardian denies using tobacco, Patient/guardian denies using alcohol, street drugs, IV drugs. ROS: 10/02 03:23 Eyes: Negative for injury, pain, redness, and discharge, ENT: Negative for injury, pkl pain, and discharge, Neck: Negative for injury, pain, and swelling, Cardiovascular: Negative for chest pain, palpitations, and edema. Respiratory: Positive for cough, with yellow sputum, shortness of breath, at rest. Abdomen/GI: Positive for abdominal pain, of the right upper quadrant and left upper quadrant. Back: Negative for acute changes. : Negative for urinary symptoms. MS/extremity: Negative for acute changes. Skin: Negative for rash. Neuro: Negative for altered mental status. Exam: 03:23 Head/Face: Normocephalic, atraumatic. Eyes: Pupils equal round and reactive to light, pkl extra-ocular motions intact. Lids and lashes normal. Conjunctiva and sclera are non-icteric and not injected. Cornea within normal limits. Periorbital areas with no swelling, redness, or edema. ENT: Nares patent. No nasal discharge, no septal abnormalities noted. Tympanic membranes are normal and external auditory canals are clear. Oropharynx with no redness, swelling, or masses, exudates, or evidence of obstruction, uvula midline. Mucous membranes moist. Neck: Trachea midline, no thyromegaly or masses palpated, and no cervical lymphadenopathy. Supple, full range of motion without nuchal rigidity, or vertebral point tenderness. No Meningismus. Chest/axilla: Normal chest wall appearance and motion. Nontender with no deformity. No lesions are appreciated. Cardiovascular: Regular rate and rhythm with a normal S1 and S2. No gallops, murmurs, or rubs. Normal PMI, no JVD. No pulse deficits. 03:23 Respiratory: moderate respiratory distress is noted, Respirations: labored breathing, Breath sounds: bronchial sounds, that are moderate, are scattered. 03:23 Abdomen/GI: Bowel sounds: normal, Palpation: soft, mild abdominal tenderness, in the right upper quadrant and left upper quadrant. 03:23 Back: Exam negative for acute changes. 03:23 : Exam negative for acute changes. 03:23 Musculoskeletal/extremity: Exam is negative for acute changes. 03:23 Skin: Exam negative for rash. 03:23 Neuro: Orientation: is normal, Mentation: is normal, Cranial nerves: grossly normal, Motor: is normal. Vital Signs: 10/01 19:58 BP 113 / 72; Pulse 114; Resp 28; Temp 98.7; Pulse Ox 91% on 3 lpm NC; mg2 20:32 Weight 41.73 kg; Height 4 ft. 9 in. (144.78 cm); mg2 21:36 BP 117 / 68; Pulse 100; Resp 24; Pulse Ox 93% on 3 lpm NC; mg2 23:00 BP 118 / 54; Pulse 107; Resp 22; Pulse Ox 94% on 3 lpm NC; mg2 23:42 BP 127 / 58; Pulse 105; Resp 22; Pulse Ox 91% on 3 lpm NC; mg2 10/02 01:23 BP 106 / 61; Pulse 91; Resp 22; Pulse Ox 92% on 4 lpm NC; mg2 02:19 BP 108 / 61; Pulse 87; Resp 23; Pulse Ox 96% on 4 lpm NC; jb4 04:51 BP 105 / 57; Pulse 91; Resp 20; Pulse Ox 96% on 3 lpm NC; mg2 10/01 20:32 Body Mass Index 19.91 (41.73 kg, 144.78 cm) mg2 MDM: 10/01 19:58 Patient medically screened. pkl 10/02 03:23 Data reviewed: vital signs, nurses notes, lab test result(s), EKG, radiologic studies, pkl CT scan, plain films. 03:30 ED course: Talked to Adi [place] ) Admit to Dr. Sanchez. pk 10/01 20:39 Order name: ABG pk 10/01 20:53 Order name: Basic Metabolic Panel; Complete Time: 03:12 EDMS 10/01 20:53 Order name: Liver (Hepatic) Function; Complete Time: 03:12 EDMS 10/01 20:53 Order name: Creatine Phosphokinase; Complete Time: 03:12 EDMS 10/01 20:53 Order name: CKMB Creatine Kinase MB; Complete Time: 03:12 EDMS 10/01 20:53 Order name: Troponin (Emerg Dept Use Only); Complete Time: 03:12 EDMS 10/01 20:53 Order name: Amylase; Complete Time: 03:12 EDMS 10/01 20:53 Order name: Lipase; Complete Time: 03:12 EDMS 10/01 20:54 Order name: Lactate; Complete Time: 03:12 EDMS 10/01 20:54 Order name: Procalcitonin; Complete Time: 03:12 EDMS 10/01 20:54 Order name: CBC with Automated Diff; Complete Time: 03:12 EDMS 10/01 20:54 Order name: Protime (+INR); Complete Time: 03:12 EDMS 10/01 20:54 Order name: PTT, Activated Partial Thromb; Complete Time: 03:12 EDMS 10/01 20:54 Order name: Urine Microscopic Only EDCA 10/01 20:54 Order name: Blood Culture EDCA 10/01 20:54 Order name: Blood Culture EDMS 10/01 20:32 Order name: Accucheck; Complete Time: 20:44 mg2 10/01 20:32 Order name: Cardiac monitoring; Complete Time: 20:44 mg2 10/01 20:32 Order name: EKG - Nurse/Tech; Complete Time: 20:44 mg2 10/01 20:32 Order name: IV Saline Lock - Large Bore; Complete Time: 20:44 mg2 10/01 20:32 Order name: Labs collected and sent; Complete Time: 20:44 mg2 10/01 20:32 Order name: O2 Per Protocol; Complete Time: 20:44 mg2 10/01 20:32 Order name: O2 Sat Monitoring; Complete Time: 20:44 mg2 10/01 20:32 Order name: Urine Dipstick-Ancillary (obtain specimen); Complete Time: 23:38 mg2 10/01 21:32 Order name: Chest Single View; Complete Time: 08:24 EDMS 10/01 21:59 Order name: ABG Arterial Blood Gas; Complete Time: 03:12 EDMS 10/01 23:22 Order name: COVID-19 : Document "Date of Symptom Onset" if Symptomatic. mg2 10/01 23:39 Order name: Urine Dipstick-Ancillary; Complete Time: 03:12 EDMS 10/02 00:39 Order name: SARS-COV-2 RT PCR; Complete Time: 03:12 EDMS 10/02 01:23 Order name: CT Chest For PE Angio mg2 10/02 01:23 Order name: CT Abd/Pelvis - IV Contrast Only mg2 10/02 03:58 Order name: CONS Physician Consult EDMS 10/02 05:29 Order name: Lactic Dehydrogenase; Complete Time: 08:24 EDMS 10/02 05:29 Order name: C-Reactive Protein; Complete Time: 08:24 EDMS Administered Medications: 10/01 20:43 Drug: NS 0.9% (30 ml/kg) 30 ml/kg Route: IV; Rate: bolus; Site: right forearm; mg2 20:52 Drug: Albuterol - atroVENT (ipratropium) (3:1) (2.5 mg - 0.5 mg) 3 ml Route: Nebulizer; mg2 22:08 Follow up: Response: No adverse reaction mg2 20:52 Drug: SOLU-Medrol 125 mg Route: IVP; Site: right forearm; mg2 22:07 Follow up: Response: No adverse reaction mg2 23:42 Drug: NS 0.9% 1000 ml Route: IV; Rate: 125 ml/hr; Site: right forearm; mg2 Disposition: 10/02/20 03:30 Hospitalization ordered by Edison Sanchez for Inpatient Admission. Preliminary diagnosis is Acute dyspnea. Acute exacerbation COPD. Hypoxia. Abdominal pain. Pancreatis. - Bed requested for Telemetry/MedSurg (Inpatient). - Status is Inpatient Admission. hb - Condition is Stable. - Problem is new. - Symptoms have improved. Signatures: Dispatcher [employer] EDCA DirCynthia cagle Reynaldo Tucker MD MD pkl Garcia, Cindy, RN RN Magdalena Norris, JOLEEN GOODRICH Catarino Holland RN RN [facility] Corrections: (The following items were deleted from the chart) 22:34 22:32 Chest Single View+RAD.RAD.BRZ ordered. [facility] 23:36 23:23 CORONAVIRUS ordered. [facility] 10/02 00:17 10/01 22:32 AMYLASE, SERUM+C.LAB.BRZ ordered. [facility] 10/02 00:17 10/01 22:32 BASIC METABOLIC PANEL+C.LAB.BRZ ordered. [facility] 10/02 00:17 10/01 22:32 CKMB+C.LAB.BRZ ordered. [facility] 10/02 00:17 10/01 22:32 CREATINE PHOSPHOKINASE+C.LAB.BRZ ordered. [facility] 10/02 00:17 10/01 22:32 HEPATIC FUNCTION+C.LAB.BRZ ordered. [facility] 10/02 00:17 10/01 22:32 LIPASE+C.LAB.BRZ ordered. [facility] 10/02 00:17 10/01 22:32 TROPONIN (EMERG DEPT USE ONLY)+C.LAB.BRZ ordered. [facility] 10/02 00:18 10/01 22:32 BLOOD CULTURE*+BA.LAB.BRZ ordered. [facility] 10/02 00:18 10/01 22:32 CBC+H.LAB.BRZ ordered. [facility] 10/02 00:19 10/01 22:32 LACTATE+C.LAB.BRZ ordered. [facility] 10/02 00:19 10/01 22:32 Procalcitonin+C.LAB.BRZ ordered. [facility] 10/02 00:19 10/01 22:32 PROTIME (+INR)+COAG.LAB.BRZ ordered. [facility] 10/02 00:19 10/01 22:32 PTT, ACTIVATED+COAG.LAB.BRZ ordered. [facility] 10/02 00:19 10/01 22:32 UA MICROSCOPIC+U.LAB.BRZ ordered. [facility] 10/02 04:50 03:30 Hospitalization Ordered by Edison Sanchez for Inpatient Admission. Preliminary cg diagnosis is Acute dyspnea. Acute exacerbation COPD. Hypoxia. Abdominal pain. Pancreatis. Bed requested for Telemetry/MedSurg (Inpatient). Status is Inpatient Admission. Condition is Stable. Problem is new. Symptoms have improved. pkl 07:12 04:50 10/02/2020 03:30 Hospitalization Ordered by Edison Sanchez for Inpatient bd Admission. Preliminary diagnosis is Acute dyspnea. Acute exacerbation COPD. Hypoxia. Abdominal pain. Pancreatis. [facility] Status is Inpatient Admission. Condition is Stable. Problem is new. Symptoms have improved. cg 07:48 07:12 10/02/2020 03:30 Hospitalization Ordered by Edison Sanchez for Inpatient hb Admission. Preliminary diagnosis is Acute dyspnea. Acute exacerbation COPD. Hypoxia. Abdominal pain. Pancreatis. Bed requested for Telemetry/MedSurg (Inpatient). Status is Inpatient Admission. Condition is Stable. Problem is new. Symptoms have improved. bd
--- NOTE | 2020-10-02 04:19 | P.HP ---
Certification for Inpatient Patient admitted to: Inpatient With expected LOS: >2 Midnights Patient will require the following post-hospital care: None Practitioner: I am a practitioner with admitting privileges, knowledge of patient current condition, hospital course, and medical plan of care. Services: Services provided to patient in accordance with Admission requirements found in Title 42 Section 412.3 of the Code of Federal Regulations Patient History Date of Service: 10/02/20 Reason for admission: COPD exacerbation History of Present Illness: Ms. Romo is a 74 yo F with COPD on home O2 and pulmonary artery hypertension here today with several days of worsening productive cough with yellow sputum, congestion, SOB, and DUNN. She reports wheezing. She denies hemoptysis, chest pain, abdominal pain, night sweats, chills, constipation and diarrhea. She quit smoking in 2004. WBC 12.8. paO2 55.4. AST 131. ALT 218. CKMB 4.2. Albumin 2.9. CT with no evidence of pulmonary embolism, inflammatory stranding around the pancreatic head suspicious for pancreatitis. Allergies Sulfa (Sulfonamide Antibiotics) Allergy (Intermediate, Verified 02/02/20 20:09) Hives/Rash trimethoprim [From Bactrim] Allergy (Intermediate, Verified 02/02/20 20:09) Rash sulfamethoxazole [From Bactrim] Allergy (Verified 02/02/20 20:09) Unknown Home Medications: Ambrisentan [Letairis] 10 mg PO DAILY 11/07/19 Cholecalciferol (Vitamin D3) [Vitamin D3] 2,000 unit PO DAILY 11/07/19 Citalopram [Celexa*] 40 mg PO DAILY 11/07/19 Glucosamine HCl 500 mg PO DAILY 11/07/19 Montelukast [Singulair*] 10 mg PO DAILY 11/07/19 Nordman-3 Fatty Acids [Nordman-3] 3,000 mg PO DAILY 11/07/19 Turmeric Root Extract [Turmeric] 500 mg PO DAILY 11/07/19 ALPRAZolam [Xanax*] 0.5 mg PO TID PRN 11/08/19 Acyclovir [Zovirax] 200 mg PO BID 11/08/19 Albuterol Inhaler [Ventolin Inhaler*] 2 puff IH BID 05/16/20 predniSONE [Deltasone*] 5 mg PO BID 05/16/20 Albuterol Sulfate [Albuterol Sulfate 0.083% Neb Soln] 2.5 mg IH Q4H PRN 10/02/20 Digoxin [Lanoxin*] 1 tab PO DAILY 10/02/20 Mometasone/Formoterol [Dulera 200 Mcg-5 Mcg Inhaler] 2 puff IH BID 10/02/20 Guaifenesin [Mucinex] 1,200 mg PO DAILY #60 10/03/20 Ipratropium Neb [Atrovent*] 0.5 mg NEB T6VNCYP #120 amp 10/03/20 levoFLOXacin [Levaquin*] 750 mg PO Q48H #3 tab 10/03/20 predniSONE [Prednisone] 5 mg PO DAILY #60 tablet 10/03/20 - Past Medical/Surgical History Diabetic: No -: shingles -: copd -: depression with anxiety -: mycobacterium avium -: neuropathy, -: fatty liver -: osteoporosis -: Pulmonary hypertension -: left upper lobectomy -: l kidney cyst -: tonsillectomy -: csection -: tubal ligation Psychosocial/ Personal History: Patient lives at home with her grandson - Family History Mother Medical History: Lung disease Notes: copd 1978 Father Medical History: Liver disease Notes: cirrhosis Brother Medical History: Cancer Notes: Leukemia Sister Medical History: Lung disease - Social History Smoking Status: Former smoker Alcohol use: No CD- Drugs: No Caffeine use: Yes Place of Residence: Home Review of Systems General: Unremarkable Eyes: Unremarkable ENT: Unremarkable Respiratory: Cough, Shortness of Breath, SOB with Excertion, Sputum, As per HPI Cardiovascular: Unremarkable Gastrointestinal: Unremarkable Genitourinary: Unremarkable Musculoskeletal: Unremarkable Integumentary: Unremarkable Neurological: Unremarkable Lymphatics: Unremarkable Physical Examination - Physical Exam General: Alert, In no apparent distress, Oriented x3, Cooperative, Other (able to speak in uninterrupted sentences until moving around ) HEENT: Atraumatic, Normocephalic, PERRLA, Mucous membr. moist/pink, EOMI, Sclerae nonicteric Neck: Supple, 2+ carotid pulse no bruit, JVD not distended, No Thyromegaly, No LAD Respiratory: Diminished, Rhonchi/gurgles Cardiovascular: No edema, Normal pulses, Regular rate/rhythm, Normal S1 S2, No gallops, No rubs, No murmurs Capillary refill: <2 Seconds Gastrointestinal: Normal bowel sounds, Soft and benign, Non-distended, No ascites, No tenderness, No masses, No rebound, No guarding Musculoskeletal: No clubbing, No swelling, No contractures, No erythema, No tenderness, No warmth Integumentary: No rashes, No breakdown, No significant lesion, No tenderness/swelling, No erythema, No warmth, No cyanosis Neurological: Normal gait, Normal speech, Normal strength at 5/5 x4 extr, Normal tone, Sensation intact, Cranial nerves 3-12 intact, Normal affect Lymphatics: No axilla or inguinal lymphadenopathy - Studies Laboratory Data (last 24 hrs) 10/01/20 20:40: PT 10.8, INR 0.94, APTT 25.4 10/01/20 20:40: WBC 12.80 H, Hgb 13.2, Hct 40.1, Plt Count 264 10/01/20 20:40: Sodium 140, Potassium 4.4, BUN 20 H, Creatinine 0.85, Glucose 126 H, Total Bilirubin 0.3, AST 131 H, ALT 218 H, Alkaline Phosphatase 93, Amylase 59, Lipase 118 10/01/20 20:32: PT Cancelled, INR Cancelled, APTT Cancelled 10/01/20 20:32: WBC Cancelled, Hgb Cancelled, Hct Cancelled, Plt Count Cancelled 10/01/20 20:32: Sodium Cancelled, Potassium Cancelled, BUN Cancelled, Creatinine Cancelled, Glucose Cancelled, Total Bilirubin Cancelled, AST Cancelled, ALT Cancelled, Alkaline Phosphatase Cancelled, Amylase Cancelled, Lipase Cancelled Assessment & Plan - Problems (Diagnosis) (1) Elevated liver enzymes Status: Acute (2) Acute and chronic respiratory failure with hypoxia Status: Acute (3) COPD exacerbation Status: Acute (4) Pulmonary hypertension Status: Chronic - Plan Pulm and RT consulted, daily room air sats, BiPAP PRN, repeat ABG in the AM scheduled breathing treatments, IV steroids, levofloxacin 750 PO x 5 days sputum culture ordered GI consulted for elevated liver enzymes and CT findings, patient is currently asymptomatic DVT ppx will reconcile and continue home medications Discharge Plan: Home Plan to discharge in: 48 Hours - Advance Directives Does patient have a Living Will: No Does patient have a Durable POA for Healthcare: No - Code Status/Comfort Care Code Status Assessed: Yes (full code) Critical Care: No Time Spent Managing PTS Care (In Minutes): 70
[2020-10-02 05:29] LABS: C-Reactive Protein 3.3 mg/L (<3.00)
--- NOTE | 2020-10-02 05:47 | RAD REPORT ---
EXAM DESCRIPTION: Jade Single View10/01/2020 10:18 pm CLINICAL HISTORY: Shortness breath COMPARISON: 2019 FINDINGS: Extensive bilateral pulmonary fibrosis. Lungs appear clear of acute infiltrate. Heart is n ormal size IMPRESSION: No acute abnormalities displayed
[2020-10-02 05:55] VITALS: BMI 19.9
[2020-10-02] MEDS: METHYLPREDNISOLONE 40 MG INJ IV SCH ×4 (07:32→23:21)
[2020-10-02] MEDS ORDERED: ACETAMINOPHEN 500 MG TAB PO PRN (07:32)
[2020-10-02] MEDS ORDERED: ONDANSETRON 4 MG/2 ML VIAL IV PRN (07:32)
--- NOTE | 2020-10-02 08:09 | EKG ---
Test Date: 2020-10-01 Test Time: 20:07:54 Impregnator [employer] Drier: MG MEASUREMENT RESULTS: Intervals: Rate: 125 [place]: 128 QRSD: 84 QT: 276 QTc: 398 [place]: P: 88 [place]: 128 QRS: 263 T: 65 INTERPRETIVE STATEMENTS: Sinus tachycardia with premature atrial complexes Right atrial enlargement Right superior axis deviation Pulmonary disease pattern Right ventricular hypertrophy with repolarization abnormality Inferior infarct, age undetermined Abnormal ECG Compared to ECG 05/16/2020 14:20:47 Early repolarization now present Myocardial infarct finding still present Electronically Signed On 10-02-20 08:08:09 CDT by Patrick Bhatt
[2020-10-02 08:34] LABS: Basophils % 0.1 % (0-1.3); Hematocrit 41.2 % (36.0-45.0); Lymphocytes % 9.5 % (15.3-44.8); MPV 7.6 fL (7.6-11.3); RBC Red Blood Cell Count 4.43 M/uL (3.86-4.86)
[2020-10-02] MEDS: ENOXAPARIN 40 MG/0.4 ML SQ SCH (08:34)
[2020-10-02 08:51] LABS: Albumin 3.1 g/dL (3.4-5.0); Bilirubin Total 0.4 mg/dL (0.2-1.0); Potassium 4.7 mmol/L (3.5-5.1); Troponin I 0.03 ng/mL (0.0-0.045)
--- NOTE | 2020-10-02 08:51 | P.CNS ---
Date of Consult: 10/02/20 Reason for Consult: COPD exacerbation Chief Complaint: COPD exacerbation History of Present Illness: Patient is 74 years of age well known to me she has a history of terminal COPD got worse over the past for a past couple of weeks she also complained of lower extremity edema compliant with her bronchodilators patient takes Dulera and Spiriva also has a productive cough Allergies Sulfa (Sulfonamide Antibiotics) Allergy (Intermediate, Verified 02/02/20 20:09) Hives/Rash trimethoprim [From Bactrim] Allergy (Intermediate, Verified 02/02/20 20:09) Rash sulfamethoxazole [From Bactrim] Allergy (Verified 02/02/20 20:09) Unknown Home Medications: Ambrisentan [Letairis] 5 mg PO DAILY 11/07/19 Cholecalciferol (Vitamin D3) [Vitamin D3] 2,000 unit PO DAILY 11/07/19 Citalopram [Celexa*] 40 mg PO DAILY 11/07/19 Glucosamine HCl 500 mg PO DAILY 11/07/19 Guaifenesin [Mucinex] 1,200 mg PO DAILY 11/07/19 Montelukast [Singulair*] 10 mg PO DAILY 11/07/19 Laquey-3 Fatty Acids [Laquey-3] 3,000 mg PO DAILY 11/07/19 Tiotropium [Spiriva Handihaler*] 2 puff IH DAILY 11/07/19 Turmeric Root Extract [Turmeric] 500 mg PO DAILY 11/07/19 ALPRAZolam [Xanax*] 0.5 mg PO DAILY PRN 11/08/19 Acyclovir [Zovirax] 200 mg PO DAILY 11/08/19 Albuterol Inhaler [Ventolin Inhaler*] 2 puff IH BID 05/16/20 Mometasone/Formoterol [Dulera 100 Mcg/5 Mcg Inhaler] 2 puff IH BID 05/16/20 predniSONE [Deltasone*] 5 mg PO BID 05/16/20 Cefdinir [Omnicef] 300 mg PO BID #14 capsule 05/17/20 predniSONE [Prednisone*] 20 mg PO BID #20 tab 05/17/20 - Past Medical/Surgical History Diabetic: No -: shingles -: copd -: depression with anxiety -: mycobacterium avium -: neuropathy, -: fatty liver -: osteoporosis -: Pulmonary hypertension -: left upper lobectomy -: l kidney cyst -: tonsillectomy -: csection -: tubal ligation Psychosocial/ Personal History: Patient lives at home with her grandson - Family History Mother Medical History: Lung disease Notes: copd 1978 Father Medical History: Liver disease Notes: cirrhosis Brother Medical History: Cancer Notes: Leukemia Sister Medical History: Lung disease - Social History Smoking Status: Unknown if ever smoked Alcohol use: No CD- Drugs: No Caffeine use: Yes Place of Residence: Home Review of Systems General: Weakness Respiratory: Cough, Shortness of Breath Cardiovascular: Edema Physical Examination Temp Pulse Resp BP Pulse Ox 98.7 F 91 H 20 105/57 L 10/01/20 19:58 10/02/20 04:51 10/02/20 04:51 10/02/20 04:51 General: Alert, Moderate distress Respiratory: Diminished, Expiratory wheezes Cardiovascular: No edema, Regular rate/rhythm, Normal S1 S2 Gastrointestinal: Normal bowel sounds Musculoskeletal: No clubbing, No swelling Integumentary: No rashes, No breakdown Neurological: Normal speech Laboratory Data (last 24 hrs) 10/01/20 20:40: PT 10.8, INR 0.94, APTT 25.4 10/01/20 20:40: WBC 12.80 H, Hgb 13.2, Hct 40.1, Plt Count 264 10/01/20 20:40: Sodium 140, Potassium 4.4, BUN 20 H, Creatinine 0.85, Glucose 126 H, Total Bilirubin 0.3, AST 131 H, ALT 218 H, Alkaline Phosphatase 93, Amylase 59, Lipase 118 10/01/20 20:32: PT Cancelled, INR Cancelled, APTT Cancelled 10/01/20 20:32: WBC Cancelled, Hgb Cancelled, Hct Cancelled, Plt Count Cancelled 10/01/20 20:32: Sodium Cancelled, Potassium Cancelled, BUN Cancelled, Creatinine Cancelled, Glucose Cancelled, Total Bilirubin Cancelled, AST Cancelled, ALT Cancelled, Alkaline Phosphatase Cancelled, Amylase Cancelled, Lipase Cancelled - Problems (1) COPD exacerbation Current Visit: No Status: Acute Plan: Patient is 74 years of age well known to me with a history of terminal COPD admitted with COPD exacerbation there is no evidence of pneumonia or pulmonary embolism labs reviewed unremarkable signs stable agree with present therapy patient is high risk for resistant organisms continue with levofloxacin schedule bronchodilators and steroids
[2020-10-02] MEDS ORDERED: levoFLOXacin 750 MG TAB PO SCH ×2 (09:00)
[2020-10-02 09:18] LABS: Blood Morphology Comment NOT SEEN (NOT SEEN); Platelet Estimate ADEQ
[2020-10-02] MEDS: ALBUTEROL 2.5 MG/3 ML NEB SOL NEB SCH ×3 (09:23→20:10)
[2020-10-02] MEDS: IPRATROPIUM BROM 0.5MG/2.5ML NEB SCH ×3 (09:23→20:10)
--- NOTE | 2020-10-02 12:46 | RAD REPORT ---
EXAM DESCRIPTION: CT - Abdomen Pelvis W Contrast - 10/02/2020 6:31 am CLINICAL HISTORY: 74 years Female difficulty breathing, elevated LFTs. TECHNIQUE: CT angiogram of the chest using intravenous contrast. Multiplanar reformation and 3D and MIP reconstructions were performed. Additional CT images of the abdomen and pelvis were obtained imme diately following the CTA acquisition. All CT scans at this facility use dose modulation, iterative r econstruction, and/or weight based dosing when appropriate to reduce radiation dose to as low as reas onably achievable. COMPARISON: CTA chest 01/17/2019. FINDINGS: Chest: Pulmonary arteries: No evidence of pulmonary embolism. Aorta: No evidence of aortic dissection or aneurysm. Mediastinum: Unremarkable. No adenopathy. Heart: Heart is normal in size. No pericardial effusion. Lungs / airways: Extensive emphysematous changes again noted. No consolidation. Airways are patent. Pleura: No significant pleural effusion. No pneumothorax. Osseous: Multilevel degenerative changes. Remote right-sided sixth rib fracture. Mild superior endpla te deformity at T6. Soft tissues: Unremarkable. Abdomen/pelvis: Liver: No focal lesion. Gallbladder: No calcified stone. Pancreas: Inflammatory stranding around the pancreatic head. Spleen: Within normal limits. Kidney: No stone or hydronephrosis. Postsurgical changes in the left kidney. 5 mm cyst in the inferio r pole of the left kidney. Adrenal glands: Within normal limits. Vascular structures: Atherosclerotic calcification of the aorta and its major branches. Bowel: Diverticulosis without inflammatory changes. Bowel containing left lateral anterior abdominal wall hernia. No significant distention. Appendix: Normal. Peritoneum: No free fluid or free air. Lymph Nodes: No lymphadenopathy. Reproductive: Unremarkable. Urinary bladder: Unremarkable. Osseous structures: Multilevel degenerative changes. Soft tissues: Retroperitoneal fat herniation into the left posterior lateral abdominal wall at the le betty below the left kidney. IMPRESSION: CTA chest: 1. No acute intrathoracic findings. 2. Mild superior endplate deformity at T6, age indeterminate. CT abdomen and pelvis: 1. Inflammatory stranding around the pancreatic head suspicious for pancreatitis. 2. Other chronic findings as above. Electronically signed by: Wayne Vargas MD 10/02/2020 2:32 AM CDT Due to temporary technical issues with the PACS/Fluency reporting system, reports are being signed by the in house radiologist without review as a courtesy to ensure prompt reporting. The interpreting r adiologist is fully responsible for the content of the report.
[2020-10-02 13:22] LABS: Urine Appearance CLEAR (Clear); Urine Bilirubin NEGATIVE (Negataive); Urine Blood NEGATIVE (Negative); Urine Color YELLOW (Yellow); Urine Glucose NEGATIVE (Negative); Urine Protein NEGATIVE (Negative); Urine Specific Gravity >=1.030 (1.005-1.030); Urine Urobilinogen 0.2 mg/dL (0.2-1.0)
[2020-10-02 13:31] LABS: Urine Microscopic Reflex NO UMIC
--- NOTE | 2020-10-02 15:22 | RAD REPORT ---
EXAM DESCRIPTION: MRI - Cholangiogram - 10/02/2020 2:28 pm CLINICAL HISTORY: Acute pancreatitis COMPARISON: Chest For Pe Angio dated 10/02/2020; Abdomen Pelvis W Contrast dated 10/02/2020 FINDINGS: Three-dimensional MRCP was performed using maximum intensity projection reconstruction on the same work station. No intrahepatic biliary tree dilatation is seen. The common bile duct is normal caliber without evide nce of retained stone, stricture or mass. The pancreatic duct is not pathologically dilated. The gallbladder is unremarkable. Limited T2 sequences through the abdomen demonstrates no bulky adenopathy, significant free fluid or abscess. IMPRESSION: Negative MR cholangiogram.
--- NOTE | 2020-10-02 15:58 | P.PN ---
Subjective Date of Service: 10/02/20 Chief Complaint: COPD exacerbation Patient states she feels much better today. She states her shortness of breath has improved. Patient denies any abdominal pain. Physical Examination - Vital Signs Temperature: 96.2 F Blood Pressure: 107/47 Pulse: 103 Respirations: 26 Pulse Ox (%): 97 - Physical Exam General: Alert, In no apparent distress, Oriented x3 HEENT: Mucous membr. moist/pink Neck: JVD not distended Respiratory: Normal air movement, Other (Mild scattered wheezes) Cardiovascular: No edema, Irregular heart rate/rhythm Gastrointestinal: Normal bowel sounds, Soft and benign, Non-distended, No tenderness Musculoskeletal: No swelling, No tenderness Integumentary: No rashes Neurological: Normal strength at 5/5 x4 extr - Studies Laboratory Data (last 24 hrs) 10/01/20 20:40: PT 10.8, INR 0.94, APTT 25.4 10/01/20 20:40: WBC 12.80 H, Hgb 13.2, Hct 40.1, Plt Count 264 10/01/20 20:40: Sodium 140, Potassium 4.4, BUN 20 H, Creatinine 0.85, Glucose 126 H, Total Bilirubin 0.3, AST 131 H, ALT 218 H, Alkaline Phosphatase 93, Amylase 59, Lipase 118 10/01/20 20:32: PT Cancelled, INR Cancelled, APTT Cancelled 10/01/20 20:32: WBC Cancelled, Hgb Cancelled, Hct Cancelled, Plt Count Cancelled 10/01/20 20:32: Sodium Cancelled, Potassium Cancelled, BUN Cancelled, Creatinine Cancelled, Glucose Cancelled, Total Bilirubin Cancelled, AST Cancelled, ALT Cancelled, Alkaline Phosphatase Cancelled, Amylase Cancelled, Lipase Cancelled Assessment And Plan - Current Problems (Diagnosis) (1) Pancreatitis Current Visit: Yes Status: Acute (2) Elevated liver enzymes Current Visit: Yes Status: Acute (3) Acute and chronic respiratory failure with hypoxia Current Visit: No Status: Acute (4) COPD exacerbation Current Visit: No Status: Acute - Plan Continue treatment for COPD exacerbation with IV steroid, bronchodilators, antibiotics. Titrate oxygen. Pulmonary input appreciated. Patient have Elevated liver enzymes and pancreatic stranding but MRCP is negative and lipase level within normal limits. Case discussed with GI-Dr. Marsh. Continue supportive measures. Continue other home medication.
[2020-10-02] MEDS ORDERED: ALPRAZOLAM 0.5 MG TABLET PO PRN (15:59)
[2020-10-02] MEDS: DIGOXIN 0.125 MG TABLET PO SCH (17:21)
[2020-10-02] MEDS ORDERED: PNEUMOCOCCAL VACCINE 0.5 ML IMVAC ONE (20:00)
[2020-10-02] MEDS: ACYCLOVIR 400 MG TABLET PO SCH (21:25)
[2020-10-02] MEDS: DULERA 200/5 (MOMETASONE/FORMOTEROL) INHALER IH SCH (21:26)
[2020-10-03] MEDS: ALBUTEROL 2.5 MG/3 ML NEB SOL NEB SCH ×4 (01:50→19:30)
[2020-10-03] MEDS: IPRATROPIUM BROM 0.5MG/2.5ML NEB SCH ×4 (01:50→19:30)
[2020-10-03 04:24] LABS: Absolute Lymphocytes (CBC) 0.7 K/uL (0.7-4.9); Basophils % 0.1 % (0-1.3); Hematocrit 33.8 % (36.0-45.0); Lymphocytes % 5.9 % (15.3-44.8); MPV 7.7 fL (7.6-11.3); RBC Red Blood Cell Count 3.65 M/uL (3.86-4.86)
[2020-10-03] MEDS: METHYLPREDNISOLONE 40 MG INJ IV SCH ×3 (05:09→17:27)
[2020-10-03 06:55] LABS: Albumin 2.6 g/dL (3.4-5.0); Bilirubin Total 0.3 mg/dL (0.2-1.0); Ferritin 19.1 ng/mL (8-388); Potassium 4.2 mmol/L (3.5-5.1)
[2020-10-03] MEDS: DULERA 200/5 (MOMETASONE/FORMOTEROL) INHALER IH SCH ×2 (07:33→20:26)
[2020-10-03] MEDS: DIGOXIN 0.125 MG TABLET PO SCH (07:34)
[2020-10-03] MEDS: ACYCLOVIR 400 MG TABLET PO SCH ×2 (07:34→20:25)
[2020-10-03] MEDS: ENOXAPARIN 40 MG/0.4 ML SQ SCH (07:34)
[2020-10-03] MEDS ORDERED: GLUCOSAMINE HCL 500 MG PO SCH (09:00)
[2020-10-03] MEDS ORDERED: AMBRISENTAN 10 MG PO SCH (09:00)
[2020-10-03] MEDS ORDERED: MONTELUKAST 10 MG TAB PO SCH (09:00)
[2020-10-03] MEDS ORDERED: GUAIFENESIN 1200 MG PO SCH (09:00)
[2020-10-03] MEDS ORDERED: HOME MED 1 EA UNK (Omega-3 Fatty Acids [Omega-3] 1,000 MG Capsule) PO SCH (09:00)
[2020-10-03] MEDS ORDERED: CITALOPRAM 10 MG TABLET PO SCH (09:00)
[2020-10-03] MEDS ORDERED: ALPRAZOLAM 0.5 MG TABLET PO PRN (11:24)
[2020-10-03] MEDS ORDERED: ALPRAZOLAM 0.5 MG TABLET PO SCH (14:00)
[2020-10-03] MEDS ORDERED: DIGOXIN 0.125 MG TABLET PO SCH (16:00)
[2020-10-03 20:00] VITALS: BP 101/52; TEMP 97.5
[2020-10-03 22:29] VITALS: O2SAT 88
[2020-10-06 19:48] LABS: HBsAG Nonreactive (Nonreactive)
[2020-10-07 17:36] LABS: Alpha Fetoprotein-Tumor Marker 8.4 ng/mL (<6.1)
--- NOTE | 2020-11-05 19:54 | P.DS ---
Admission Date: 10/02/20 Discharge Date: 10/03/20 Disposition: [facility] Discharge Condition: FAIR Reason for Admission: COPD exacerbation - Problems (1) Pancreatitis Status: Acute (2) Elevated liver enzymes Status: Acute (3) Acute and chronic respiratory failure with hypoxia Status: Acute (4) COPD exacerbation Status: Acute Brief History of Present Illness: 74 year old woman with the past medical history of COPD on home O2 and pulmonary artery hypertension presented with several days of worsening productive cough with yellow sputum, congestion, SOB, and DUNN. She reports wheezing. She is an ex-smoker. In the ED, WBC 12.8. paO2 55.4. AST 131. ALT 218. CKMB 4.2. Albumin 2.9. CT reported no evidence of pulmonary embolism, inflammatory stranding around the pancreatic head suspicious for pancreatitis. Patient was admitted for further management. Hospital Course: Patient treated for COPD exacerbation with IV steroid, bronchodilators and antibiotics. Pulmonary-Dr. Mares assisted with management of her COPD exacerbation. Her respiratory status improved to baseline with treatment. MRCP was performed given the CT scan results reporting stranding in the pancreas. MRCP was unremarkable, no pancreatic stranding. Lipase level was normal. Patient overall clinically improved to baseline and deemed stable for discharge. Vital Signs/Physical Exam: Temp Pulse Resp BP Pulse Ox 97.5 F 113 H 16 101/52 L 91 10/03/20 19:59 10/03/20 19:59 10/03/20 19:59 10/03/20 19:59 10/03/20 19:59 General: Alert, In no apparent distress, Oriented x3 Respiratory: Clear to auscultation bilaterally, Normal air movement Cardiovascular: No edema, Regular rate/rhythm, Normal S1 S2 Gastrointestinal: Normal bowel sounds, Soft and benign, Non-distended, No tenderness Musculoskeletal: No swelling Integumentary: No rashes Neurological: Normal strength at 5/5 x4 extr Laboratory Data at Discharge: WBC 11.60 K/uL (4.3-10.9) H 10/03/20 03:34 Hgb 11.2 g/dL (12.0-15.0) L D 10/03/20 03:34 Hct 33.8 % (36.0-45.0) L D 10/03/20 03:34 Plt Count 242 K/uL (152-406) 10/03/20 03:34 PT 10.8 SECONDS (9.5-12.5) 10/01/20 20:40 INR 0.94 10/01/20 20:40 APTT 25.4 SECONDS (24.3-36.9) 10/01/20 20:40 Sodium Cancelled 10/03/20 07:32 Potassium Cancelled 10/03/20 07:32 BUN Cancelled 10/03/20 07:32 Creatinine Cancelled 10/03/20 07:32 Glucose Cancelled 10/03/20 07:32 Total Bilirubin Cancelled 10/03/20 07:32 AST Cancelled 10/03/20 07:32 ALT Cancelled 10/03/20 07:32 Alkaline Phosphatase Cancelled 10/03/20 07:32 Troponin I 0.03 ng/mL (0.0-0.045) 10/02/20 23:19 Triglycerides 55 mg/dL (<150) 10/02/20 08:01 Cholesterol 166 mg/dL (<200) 10/02/20 08:01 HDL Cholesterol 59 mg/dL (40-60) 10/02/20 08:01 Cholesterol/HDL Ratio 2.81 10/02/20 08:01 Amylase 59 U/L (25-115) 10/01/20 20:40 Lipase 118 U/L (73-393) 10/01/20 20:40 Home Medications: Ambrisentan [Letairis] 10 mg PO DAILY 11/07/19 Cholecalciferol (Vitamin D3) [Vitamin D3] 2,000 unit PO DAILY 11/07/19 Citalopram [Celexa*] 40 mg PO DAILY 11/07/19 Glucosamine HCl 500 mg PO DAILY 11/07/19 Montelukast [Singulair*] 10 mg PO DAILY 11/07/19 Dawson-3 Fatty Acids [Dawson-3] 3,000 mg PO DAILY 11/07/19 Turmeric Root Extract [Turmeric] 500 mg PO DAILY 11/07/19 ALPRAZolam [Xanax*] 0.5 mg PO TID PRN 11/08/19 Acyclovir [Zovirax] 200 mg PO BID 11/08/19 Albuterol Inhaler [Ventolin Inhaler*] 2 puff IH BID 05/16/20 predniSONE [Deltasone*] 5 mg PO BID 05/16/20 Albuterol Sulfate [Albuterol Sulfate 0.083% Neb Soln] 2.5 mg IH Q4H PRN 10/02/20 Digoxin [Lanoxin*] 1 tab PO DAILY 10/02/20 Mometasone/Formoterol [Dulera 200 Mcg-5 Mcg Inhaler] 2 puff IH BID 10/02/20 Guaifenesin [Mucinex] 1,200 mg PO DAILY #60 10/03/20 Ipratropium Neb [Atrovent*] 0.5 mg NEB [id number] #120 amp 10/03/20 levoFLOXacin [Levaquin*] 750 mg PO Q48H #3 tab 10/03/20 predniSONE [Prednisone] 5 mg PO DAILY #60 tablet 10/03/20 New Medications: Ipratropium Neb [Atrovent*] 0.5 mg NEB [id number] #120 amp levoFLOXacin [Levaquin*] 750 mg PO Q48H #3 tab Guaifenesin [Mucinex] 1,200 mg PO DAILY #60 predniSONE [Prednisone] 5 mg PO DAILY #60 tablet Diet: AHA Activity: Ad micky Followup: David Mares MD [ACTIVE - CAN ADMIT] - 1-2 Weeks Refugio Crawford DO [Primary Care Provider] - 1-2 Weeks
== END 2020-10-03 21:15 | disposition home or self-care (01) ==
LOC: ER 19:56 → INTOOBSV 10-02 03:56 → ERHOLD 10-02 03:56 → 4TH 10-02 07:36
PROVIDERS: ADMIT Internal Medicine; ATTEND Internal Medicine
DX: J44.1 Chronic obstructive pulmonary disease with (acute) exacerbation (principal); J96.21 Acute and chronic respiratory failure with hypoxia; R74.8 Abnormal levels of other serum enzymes; K85.90 Acute pancreatitis without necrosis or infection, unspecified; F41.8 Other specified anxiety disorders; Z20.822 Contact with and (suspected) exposure to COVID-19; M81.0 Age-related osteoporosis without current pathological fracture; I27.20 Pulmonary hypertension, unspecified; Z99.81 Dependence on supplemental oxygen; Z87.891 Personal history of nicotine dependence; R94.31 Abnormal electrocardiogram [ECG] [EKG]
CPT/HCPCS: 36415; 71045; 71275; 74177; 74181; 80048; 80053; 80061; 80074; 80076; 81003; 82103; 82105; 82150; 82390; 82550; 82553; 82728; 82805; 83036; 83540; 83605; 83615; 83690; 83880; 84145; 84466; 84484; 85025; 85610; 85730; 86038; 86140; 86255; 86704; 86706; 87040; 93005; 94640; 94760; 96374; 96375; 99285; G0378; J1650; J2920; J2930; J7030; J7606; Q9967; U0003

== ENCOUNTER 2020-11-15 06:55 | Inpatient (IN) | payer OTHER ==
--- OUTSIDE RECORDS SUMMARY | 2020-11-15 07:00 | XMS REPORT | Continuity of Care Document ---
:1945 Author Organization [facility] t Address [address] [place] [address] Dr. [address]. [address] [place] [address] Care Team Providers Name Role Phone Jose Crawford DO Primary Care Physician Skip MEADOWS Attending Clinician Thomas GOODRICH Attending Clinician Unavailable Cata Sewell MD Attending Clinician Jung MEADOWS Attending Clinician Milton Attending Clinician Unavailable Janusz Luz MD Attending Clinician Kaye MEADOWS Attending Clinician JUNG Attending Clinician Unavailable Kevin FLETCHER Attending Clinician Unavailable JANUSZ LUZ Attending Clinician Unavailable JUNG Admitting Clinician Unavailable SUKH Admitting Clinician Unavailable JUNG Admitting Clinician Unavailable Cata MELISSA Admitting Clinician Unavailable JANUSZ LUZ Admitting Clinician Unavailable Payers Payer Name Policy Type Policy Effective Date Expiration Date Sour ce Number [employer]HC MEDICAREUHC GROUP [id number] 2020 [facility] 00:00:00 [facility] [id number] 2020- PresentAPOLONIA SHORT [id number] 2008 [place] [id number] 00:00:00 Met becker 2008-PresentComme rcial MEDICAREMEDICARE A [id number] [facility] [id number] 2001- 00:00:00 - M edical PresentMedicare Center MCR [id number] 2017 SHREYA Wilburn SUPPLEMENT/INDIVIDUAL 00:00:00 - M [id number] 2017-PresentMedig ap Problems Condition Condition Condition Status Onset Resolution Last Treating Co mments Source Name Details Category Date Date Treatment Clinician Date Acute Acute Disease Active [place] hypoxemic hypoxemic 4-29 Meth haydee respirator respirator 00:00: st y failure y failure 00 SOB SOB Disease Active [place] (shortness (shortness 4-28 Me thodi of breath) of breath) 00:00: st 00 Acute on Acute on Disease Active [place] chronic chronic 1-15 Methodi respirator respirator 00:00: st y failure y failure 00 with with hypoxemia hypoxemia Pulmonary Pulmonary Disease Active Marybel ston hypertensi hypertensi 1-15 Me thodi on on 00:00: st 00 Acute Acute Disease Active [place] bronchitis bronchitis 1-15 Me thodi due to due to 00:00: st Rhinovirus Rhinovirus 00 Acute Acute Disease Active [place] respirator respirator 1-14 Me thodi y distress [...] 00:00: st 00 H/O H/O Disease Active [place] Clostridiu Clostridiu 9-07 Me thodi m m 00:00: st difficile difficile 00 infection infection September - Jan Osteoporos Osteoporos Disease Active Overview : Bhakta is s/p is s/p 9-07 Formattin Methodi RECLAST RECLAST 00:00: g of this st 12/2014, 12/2014, 00 note 04/2016, 04/2016, might be 04/2017 different from the original. No reactions during infusion but diarrhea Leg length Leg length Disease [facility] difference difference 03-05 Me thodi , acquired , acquired 00:00: st 00 Scoliosis Scoliosis Disease Active Marybel ston 03-05 Methodi 00:00: st 00 Renal cyst Renal cyst Disease Active H [place]ston s/p s/p 03-05 Methodi decorticat decorticat 00:00: st ion (L) ion (L) 00 complicate complicate d post op d post op 2004 2004 CAT CAT Disease Active Overview: Stephanieto n (mycobacte (mycobacte 03-05 Formattin Methodi rium rium 00:00: g of this st avium-intr avium-intr 00 note acellulare acellulare might be ) ) different infection infection from the in 1998 in 1998 original. s/p s/p 2008 Left therapy. therapy. 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 00:00: [...] Swelling "break [place] (Sulfona ty to 608 out" Methodi mide adverse 00:00: st Antibiot reaction 00 ics) s to drug Bactrim Adverse Active Info Not [facility] Reaction Available [facility] Family History Family Member Diagnosis Comments Start Date Stop Date Source Natural brother Leukemia [facility] ethodist Natural father Alcohol abuse [place] [facility] Natural father Cirrhosis [place] Me thodist Natural mother COPD [place] Me thodist Natural sister COPD [place] Me thodist Natural sister Endometriosis [place] [facility] Natural sister Other [place] Me thodist Social History Social Habit Start Date Stop Date Quantity Comments Source History SDOH [facility] Std Drinks [facility] History SDOH [facility] - Alcohol Binge Medical Rebel ter History of tobacco Current smoker [facility] Exposure to Not sure [place] Metho dist SARS-CoV-2 (event) Tobacco use and 2020-10-24 2020-10-24 Never used [facility] ethodist exposure 00:00:00 00:00:00 Alcohol intake 2020-10-24 2020-10-24 Current [facility] thodist 00:00:00 00:00:00 non-drinker of alcohol (finding) Cigarette 2018-06-14 2018-06-[address] [facility] - pack-years 00:00:00 00:00:00 [facility] Cigarettes smoked 2018-06-14 2018-06-[address] [facility] - current (pack per 00:00:00 00:00:00 Medical Center day) - Reported History SDOH 2018-06-10 2018-06-[address] [facility] - Alcohol Frequency 00:00:00 00:00:00 [facility] Alcohol Comment 2015-12-05 2015-12-05 stopped 2004 Bhakta [facility] 00:00:00 00:00:00 [birth year] [facility] ethodist 00:00:00 00:00:00 Smoking Status Start Date Stop Date Source Former smoker 2020-10-24 00:00:00 2020-10-24 00:00:00 Yony Palmerist Medications Ordered Filled Start Stop Current Ordering Indication Dosage Frequency Signature Comments Components Source Medication Medication Date Date Medication? Clinician (SIG) Name Name digOXIN 2020- Yes 125ug QD Take 1 [place] (LANOXIN) 10-26-30 tablet Methodi 125 mcg 00:00: 23:59 ([address] (0.125 mg) 00 :00 total) by tablet mouth daily for 30 days. macitentan 2020- Yes 10mg QD Take 1 [place] (OPSUMIT) 10-26-30 tablet (10 Met hodi 10 mg 00:00: 23:59 mg total) st tablet 00 :00 by mouth daily for 30 days. amLODIPine 2020- Yes 2.5mg Q.5D Take 1 Marybel ston (NORVASC) 10-26-30 tablet Methodi 2.5 mg 00:00: 23:59 (2.[address] tablet 00 :00 total) by mouth 2 (two) times a day for 30 days. amLODIPine 2020- No 5mg QD Take 1 [place] (NORVASC) 5 10-26- tablet (5 Me thodi mg tablet 00:00: 00:00 mg total) st 00 :00 by mouth daily for 30 days. ambrisentan 2020- No 10mg QD Take 10 mg Bhakta (LETAIRIS) 10-25 by mouth Meth haydee 10 MG 17:45: 00:[address] tablet 29 :00 predniSONE 2020- No 5mg Q.5D Take 5 mg [place] (DELTASONE) 10-25 by mouth 2 M ethodi 5 mg tablet 17:45: 00:00 (two) st 29 :00 times a day. albuterol Yes 2{puff} Q4H Inhale 2 [place] (PROAIR -29 puffs Methodi HFA,PROVENT 17:45: every 4 st [place] 25 (four) HFA,VENTOLI hours as N HFA) 90 needed for mcg/actuati wheezing on inhaler or shortness of breath. cholecalcif Yes 2000U QD Take 2,000 Bhakta [place], 4-29 Units by Methodi vitamin D3, 17:45: mouth st (VITAMIN 25 daily. D3) 2,000 unit capsule capsule acyclovir Yes 200mg Q.5D Take 200 Marybel ston (ZOVIRAX) 4-29 mg by Methodi 200 MG 17:45: mouth 2 st capsule 25 (two) times a day. omega-3/dha Yes 1{capsu QD Take 1 [place] /epa/fish 4-29 le} capsule by Meth haydee oil 17:45: mouth st (OMEGA-3 25 daily. ORAL) TURMERIC Yes 500mg QD Take 500 [place] ORAL 4-29 mg by Methodi 17:45: mouth st 25 daily. guaiFENesin Yes 1{tbl} Q12H Take 1 [place] (MUCINEX) 4-29 tablet by Metho di 1,200 mg 17:45: mouth st tablet 25 every 12 extended (twelve) release hours. 12hr glucosamine Yes 1{tbl} QD Take 1 [place] sulfate 4-29 tablet by Methodi (GLUCOSAMIN 17:45: mouth st E ORAL) 25 daily. denosumab Yes 60mg Inject 60 Marybel ston (PROLIA) 60 4-29 mg under Meth haydee mg/mL 17:45: the skin. st syringe 25 Every 6 syringe months (next dose due in November 2019) albuterol Yes 2.5mg Q.5D Take 2.5 Marybel ston (ACCUNEB) 4-29 mg by Methodi 2.5 mg /3 17:45: nebulizati st mL (0.083 25 on 2 (two) %) times a nebulizer day. solution acetaminoph Yes 1{tbl} Q6H Take 1 [place] (TYLENOL 4-29 tablet by Met hodi ORAL) 17:45: mouth st 25 every 6 (six) hours as needed (for mild pain or fever). predniSONE 2020- Yes 10mg Q.5D Take 1 [place] (DELTASONE) 4-29 05-29 tablet (10 M ethodi 10 mg 00:00: 23:59 mg total) st tablet 00 :00 by mouth 2 (two) times a day for 30 days. midodrine 2020- Yes 5mg Q.[id number] Take 1 [place] (PROAMATINE 10-25 [id number] tablet (5 Methodi ) 5 MG 00:00: 23:59 3D mg total) st tablet 00 :00 by mouth 3 (three) times a day for 30 days. Hold for systolic blood pressure > 120mmHg doxycycline 2020- No 100mg Q.5D Take 1 Valentin chang (VIBRAMYCIN 10-25 capsule Meth haydee ) 100 MG 00:00: 23:59 ([address] capsule 00 :00 total) by mouth 2 (two) times a day with meals for 4 days. midodrine 2020- No 5mg Q.[id number] Take 1 [place] (PROAMATINE 10-25 [id number] tablet (5 Methodi ) 5 MG 00:00: 00:00 3D mg total) st tablet 00 :00 by mouth 3 (three) times a day for 30 days. Dulera Dulera Yes [place] [address] 4-17 [facility] Yes QD Take by [facility] 400 mg Cap 9-25 mouth Lukes - 14:07: daily. Medical [address] [place] [address] omega-3 Yes 1g QD Take [address] fatty 9-25 by mouth [facility]ukes - acids-fish 14:07: daily. Medic al oil [address] [place] [address] 340-1,000 mg Cap per capsule citalopram Yes 40mg QD Take [address] (CELEXA) 40 9-25 by mouth Luke s - MG tablet 14:07: daily. Medica l [address] [place] [address] montelukast Yes 10mg QD Take [address] (SINGULAIR) 9-25 by mouth Luke s - 10 mg 14:07: nightly. Medical tablet [address] [place] [address] guaiFENesin Yes 1200mg QD Take 1,[address] (MUCINEX) 9-25 mg by Lukes - 600 mg 12 14:07: mouth Medical hr tablet 50 daily. [place] glucosamine Yes QD Take by [facility] sulfate 9-25 mouth Lukes - (GLUCOSAMIN 14:07: daily. Medi sanya E) 500 mg 50 Center Tab albuterol 2019-0 Yes 2{puff} Inhale [address] HFA (PROAIR 9-25 puffs by Luke s - HFA) 90 14:07: mouth via Medic al mcg/actuati 50 inhaler Cente r on inhaler every 4 (four) hours as needed for Wheezing. albuterol 2019-0 Yes 1{ampul Q.5D Take [address] (ACCUNEB) 9-25 e} ampule by Lukes - 1.25 mg/3 14:07: nebulizati Me dical mL 50 on 2 (two) Center nebulizer times solution daily. acyclovir 2019-0 Yes 200mg Q.5D Take [address] (ZOVIRAX) 9-25 mg by Lukes - 200 MG 14:07: mouth 2 Medical capsule 50 (two) Center times daily. cholecalcif 2019-0 Yes 2000U QD Take 2,[address] [place], 9-25 Units by Lukes - vitamin D3, 14:07: mouth Medic al (VITAMIN 50 daily . Center D3) 1,000 unit capsule tiotropium 2019-0 Yes QD Inhale by [facility] bromide 9-25 mouth via Lukes - (SPIRIVA 14:07: inhaler Medica l RESPIMAT) 50 every Center 2.5 morning. mcg/actuati on Mist budesonide- 0 Yes 2{puff} Q.5D Inhale [address] formoterol 9-25 puffs by Lukes - (SYMBICORT) 14:07: mouth via M edical 80-4.5 50 inhaler 2 Center mcg/actuati (two) on inhaler times daily. ALPRAZolam Yes .5mg Take 0.[address] (XANAX) 0.5 9-25 mg by Lukes - MG tablet 14:07: mouth as Medi sanya 50 needed for Center Anxiety. glucosamine 2019-0 Yes 1{tbl} Q.[id number] Take [address] -chondroiti 9-25 [id number] tablet by Lukes - n 500-400 14:07: 3D mouth 3 Medic al mg tablet 50 (three) Center times daily. denosumab 2019-0 Yes 60mg Inject [address] (PROLIA) 60 9-25 mg Lukes - mg/mL Syrg 14:07: subcutaneo M edical 50 usly every Center 6 (six) months. ambrisentan 0 Yes 10mg QD Take [address] (LETAIRIS) 9-25 by mouth Lukes - 10 MG 14:07: daily. Medical tablet 50 Center montelukast Yes 10mg QD Take 10 mg Bhakta (SINGULAIR) 7-30 by mouth Meth haydee 10 mg 00:00: nightly. st tablet 00 ALPRAZolam Yes .5mg Q.[id number] Take 0.5 Bhakta (XANAX) 0.5 7-29 [id number] mg by M ethodi MG tablet 00:00: [...] [facility] directed [facility] Nasonex Nasonex Yes [place] [address] [facility] in each [facility] - nostril [facility] Kellogg 3 Kellogg 3 Yes Refugio [address] [facility] ProAir HFA ProAir HFA Yes Refugio [address] [facility] needed [facility] Albuterol Albuterol Yes Refugio [address] Sulfate Sulfate [facility] needed [facility] Questran Questran Yes Refugio 1 [...] Tonia es - Strength Strength [facility] Acyclovir Acyclovir Yes [place] [address] [facility] Yes Refugio TAKE [address] [facility] Sodium [...] [facility] Proventil Proventil Yes Refugio [address] HFA HFA [facility] needed [facility] Celexa Celexa Yes Refugio TAKE [address] [facility] [facility] TABLET BY Lukes - MOUTH ONCE Memoria DAILY l Outpati ent Clinics Immunizations Ordered Filled Immunization Date Status Comments [facility] e Immunization Name Name Prevnar 13 Prevnar 13 2019-05-[address] [facility] - -Pneumonia Vaccine -Pneumonia Vaccine 00:00:00 [facility] FLUZONE QUAD PF 2017-03-18 Completed [facility] ethodist 00:00:00 Vital Signs Vital Name Observation Time Observation Value Comments Source Heart rate 2020-10-25 15:13:41 97 /min [facility] Body temperature 2020-10-25 15:13:41 35.33 Chelsey Stephanie ton [facility] Respiratory rate 2020-10-25 15:13:41 20 /min Stephanie hanna [facility] Oxygen saturation in 2020-10-25 15:13:41 94 /min Yony Lundberg Arterial blood by Pulse oximetry Systolic blood 2020-10-25 15:13:41 126 mm[Hg] [place] pressure Diastolic blood 2020-10-25 15:13:41 66 mm[Hg] Stephaniet on [facility]-Day pressure Body weight 2020-10-24 03:23:09 40.778 kg Yony Lundberg BMI 2020-10-24 03:23:09 19.45 kg/m2 Yony Lundberg Body height 2020-10-17 17:46:00 144.8 cm Yony Lundberg Procedures Procedure Date / Time Performing Clinician Source Performed DURABLE MEDICAL EQUIPMENT 2020-10-25 14:04:27 China Feng B NATRIURETIC PEPTIDE 2020-10-25 04:00:00 Swati Valdivia BASIC METABOLIC PANEL 2020-10-25 04:00:00 China Feng HC COMPLETE BLD COUNT 2020-10-25 04:00:00 China Feng W/AUTO DIFF ESTIMATED GFR 2020-10-25 04:00:00 China Feng odnishant B NATRIURETIC PEPTIDE 2020-10-24 05:00:00 Swati Valdivia HC COMPLETE BLD COUNT 2020-10-24 05:00:00 Philip Zamora W/AUTO DIFF BASIC METABOLIC PANEL 2020-10-24 04:00:00 Philip Zamora MAGNESIUM LEVEL 2020-10-24 04:00:00 Philip Zamora odnishant ESTIMATED GFR 2020-10-24 04:00:00 Philip Zamora SIX MINUTE WALK W/ PULSE 2020-10-23 14:24:19 Swati Valdivia OXIMETRY SPIROMETRY PRE AND POST 2020-10-23 13:02:24 Swati Valdivia WITH BRONCHILATOR, DIFFUSION, LUNG VOLUMES BASIC METABOLIC PANEL 2020-10-23 01:16:00 Philip Zamora [facility] MAGNESIUM LEVEL 2020-10-23 01:16:00 Philip Zamora odnishant ESTIMATED GFR 2020-10-23 01:16:00 Philip Zamora Meth odist HC COMPLETE BLD COUNT 2020-10-23 01:00:00 Philip Zamora [facility] W/AUTO DIFF B NATRIURETIC PEPTIDE 2020-10-23 01:00:00 Swati Valdivia [facility] HC COMPLETE BLD COUNT 2020-10-22 05:21:00 Philip Zamora [facility] W/AUTO DIFF BASIC METABOLIC PANEL 2020-10-22 05:21:00 Philip Zamora [facility] MAGNESIUM LEVEL 2020-10-22 05:21:00 Philip Zamora odist ESTIMATED GFR 2020-10-22 05:21:00 Philip Zamora odist B NATRIURETIC PEPTIDE 2020-10-21 04:42:00 China Feng [facility] VITAMIN D 25 HYDROXY 2020-10-21 04:42:00 Philip Zamora LEVEL CBC WITH PLATELET AND 2020-10-21 04:42:00 Philip Zamora [facility] DIFFERENTIAL COMPREHENSIVE METABOLIC 2020-10-21 04:42:00 Philip Zamora PANEL MAGNESIUM LEVEL 2020-10-21 04:42:00 Philip Zamora odist ESTIMATED GFR 2020-10-21 04:42:00 Philip Zamora odist BASIC METABOLIC PANEL 2020-10-20 04:11:00 China Feng [facility] HC COMPLETE BLD COUNT 2020-10-20 04:11:00 China Feng [facility] W/AUTO DIFF B NATRIURETIC PEPTIDE 2020-10-20 04:11:00 China Fengto vijaya [facility]-Day ESTIMATED GFR 2020-10-20 04:11:00 China Feng Meth elijah CV RIGHT HEART CATH 2020-10-19 16:56:45 Lopez Luz HC COMPLETE BLD COUNT 2020-10-19 05:11:00 China Feng [facility] W/AUTO DIFF B NATRIURETIC PEPTIDE 2020-10-19 05:11:00 China Feng ARTERIAL BLOOD GAS 2020-10-19 04:39:00 Candelariasaw Swati Bhakta Caroline ethodist BASIC METABOLIC PANEL 2020-10-19 04:00:00 China Feng ALPHA-1 ANTITRYPSIN LEVEL 2020-10-19 04:00:00 Swati Valdivia [place] [facility] ESTIMATED GFR 2020-10-19 04:00:00 China Feng odnishant TTE COMPLETE, W CONTRAST, 2020-10-18 17:00:00 Swati Valdivia [facility] W DOPPLER ([id number]) ALDOLASE, SERUM 2020-10-18 16:20:00 Swati Valdivia Meth odnishant MARY 2020-10-18 16:20:00 Swati Valdivia Meth odist C-REACTIVE PROTEIN 2020-10-18 16:20:00 Swati Valdivia ethodist C3 COMPLEMENT COMPONENT 2020-10-18 16:20:00 Swati Valdivia [facility] CREATINE KINASE, TOTAL 2020-10-18 16:20:00 Swati Valdivia on [facility] (CPK) D-DIMER 2020-10-18 16:20:00 Swati Valdivia Meth odist DOUBLE-STRANDED DNA 2020-10-18 16:20:00 Swati Valdivia (DSDNA) ANTIBODIES, CRITHIDIA HEPATIC FUNCTION PANEL 2020-10-18 16:20:00 Swati Valdivia on [facility] HEPATITIS ACUTE PANEL 2020-10-18 16:20:00 Swati Valdivia [facility] DIANE-1 ANTIBODY 2020-10-18 16:20:00 Swati Valdivia Meth odist RHEUMATOID FACTOR 2020-10-18 16:20:00 Swati Valdivia [place] thodist SEDIMENTATION RATE 2020-10-18 16:20:00 Swati Valdivia ethodist ALPHA-1 ANTITRYPSIN LEVEL 2020-10-18 16:20:00 CandelariaarielleSwati arauz cyndi [facility] MISCELLANEOUS REFERRAL 2020-10-18 16:20:00 CandelariaarielleSwati arauzxiao on [facility]-Day TEST MARY TITER 2020-10-18 16:20:00 Swati Valdivia Meth odist NM LUNG PERFUSION IMAGING 2020-10-18 13:28:00 CandelariaarielleSwati arauz cyndi [facility] CT CHEST WO CONTRAST 2020-10-18 12:30:53 Swati Valdivia [facility] BASIC METABOLIC PANEL 2020-10-18 02:12:00 China Feng [facility] HC COMPLETE BLD COUNT 2020-10-18 02:12:00 China Feng [facility] W/AUTO DIFF ESTIMATED GFR 2020-10-18 02:12:00 Jung China Bhakta Meth odist TROPONIN 2020-10-18 02:12:00 Feng, China Bhakta Meth odist HEPATIC FUNCTION PANEL 2020-10-18 02:12:00 China Feng on [facility]-Day XR CHEST 1 VW PORTABLE 2020-10-17 21:11:16 China Feng on [facility] PHOSPHORUS LEVEL 2020-10-17 20:30:00 Jung China Bhakta Met hodist POTASSIUM LEVEL 2020-10-17 20:30:00 Jung China Bhakta Meth odist ECG 12-LEAD 2020-10-17 19:14:23 Jung China Bhakta Meth odist COVID-19 QUALITATIVE PCR 2020-10-17 18:18:00 FengChina vegas ston [facility] PHOSPHORUS LEVEL 2020-10-17 18:18:00 Jung China Bhakta Met hodist TROPONIN 2020-10-17 18:18:00 Feng, China Bhakta Meth odist COMPREHENSIVE METABOLIC 2020-10-17 18:16:00 FengChina vegas L[facility]-Day PANEL HC COMPLETE BLD COUNT 2020-10-17 18:16:00 FengChina vegas n [facility] W/AUTO DIFF MAGNESIUM LEVEL 2020-10-17 18:16:00 China Feng Meth odist PROTHROMBIN TIME WITH INR 2020-10-17 18:16:00 China Fengcyndi [facility]-Day PARTIAL THROMBOPLASTIN 2020-10-17 18:16:00 China Feng on [facility] TIME (PTT) B NATRIURETIC PEPTIDE 2020-10-17 18:16:00 China Feng [facility] ESTIMATED GFR 2020-10-17 18:16:00 China Feng Meth odist BONE DENSITY PERIPHERAL 2020-06-15 14:28:23 Laurel Dykes [facility] BONE DENSITY 2020-06-15 14:27:44 Laurel Dykes Meth odist SARS-COV2/RT-PCR ([facility] & 2020-02-02 12:25:[address] [facility] REF LAB[facility]) Medical Center SARS-COV2/RT-PCR ([facility] & 2019-11-24 00:25:[address] [facility] Plan of Care Planned Activity Planned Date Details Comments Source Future Scheduled 2024-05-11 65+ PNEUMOCOCCAL Bhakta [facility] Test 00:00:00 VACCINE (2 of 2) [code = 65+ PNEUMOCOCCAL VACCINE (2 of 2)] Future Scheduled 2021-02-[address] [facility] - Test 00:00:00 (Season Ended) [code = [facility] INFLUENZA VACCINE (Season Ended)] Future Scheduled 2021-01-27 INFLUENZA VACCINE [place] [facility] Test 00:00:00 [code = INFLUENZA VACCINE] Future Scheduled 2020-06-[address] [facility] - Test 00:00:00 (12+) [code = Medical Center DEPRESSION SCREENING (12+)] Future Scheduled 2008-12-23 PNEUMOCOCCAL 65+ YRS [facility] - Test 00:00:00 (1 of 1 - Medical Center [id number]) [code = PNEUMOCOCCAL 65+ YRS (1 of 1 - [id number])] Future Scheduled 2002-11-[address] [facility] - Test 00:00:00 WELLNESS (YEAR 2 or Medical Center FIRST YEAR if no IPPE) [code = MEDICARE ANNUAL WELLNESS (YEAR 2 or FIRST YEAR if no IPPE)] Future Scheduled 1993-12-23 SHINGLES VACCINES ([address] [facility] - Test 00:00:00 of 2) [code = SHINGLES Medic al Center VACCINES (1 of 2)] Future Scheduled 1993-12-23 COLONOSCOPY SCREENING [place] [facility] Test 00:00:00 [code = COLONOSCOPY SCREENING] Future Scheduled 1993-12-23 SHINGLES VACCINES (#1) [place] [facility] Test 00:00:00 [code = SHINGLES VACCINES (#1)] Future Scheduled 1962-12-23 DTAP/TDAP/TD VACCINES [facility] Test 00:00:00 (1 - Tdap) [code = Medical C enter DTAP/TDAP/TD VACCINES (1 - Tdap)] Future Scheduled 1961-12-23 HEPATITIS C SCREENING [facility] Test 00:00:00 [code = HEPATITIS C Medical Center SCREENING] Encounters Start End Encounter Admission Attending Care Care Encounter Source Date/Time Date/Time Type Type Clinicians Facility Department ID 2020-10-31 2020-10-31 Outpatient [facility] [id number] 00:00:00 00[facility]00[facility] 2020-10-26 2020-10-26 Outpatient [facility] [id number] 00:00:00 00:00:00 [facility] 2020-10-17 2020-10-25 Inpatient [facility] [id number] [place] [address] 00:00:00 00:00:00 [place] [address] 2020-10-22 2020-10-22 Outpatient [facility] [id number] 00:00:00 00:00:00 [facility] 2020-10-11 2020-10-11 [facility] [id number] [facility] 00:00:00 00:00:00 [facility] 2020-10-05 2020-10-05 [facility] [id number] 2020-09-27 2020-09-27 Outpatient [facility] [id number] [facility] 2020-08-31 2020-08-31 Outpatient [facility] [id number] [facility] 2020-08-07 2020-08-07 Outpatient [facility] [id number] [facility] 2020-08-02 2020-08-02 Outpatient [facility] [id number] [facility] 2020-07-11 2020-07-11 Outpatient [facility] [id number] [facility] 2020-06-15 2020-06-15 Outpatient [facility] [id number] [address] [place] 00:00:00 00:00:00 LAUREL [address] 2020-06-15 2020-06-15 Outpatient ALI, [facility] [id number] [address] [place] 00:00:00 00:00:00 LAUREL [address] 2020-05-02 2020-05-02 Outpatient [facility] [id number] [facility] 2020-04-04 2020-04-04 Outpatient [facility] [id number] [facility] 2020-03-20 2020-03-20 Outpatient [facility] [id number] [facility] 2020-02-08 2020-02-08 Outpatient [facility] [id number] 10:15:00 10:15:00 t SENS[facility] Medicine Outpati ent Clinics 2020-01-27 2020-01-27 [facility] [id number] [address] 11:45:00 11:45:00 t [facility] Medicine Outpati ent Clinics 2020-01-10 2020-01-10 [facility] [id number] [address] 13:00:00 13:00:00 [place] [employer] [facility] l Medicine Outpati ent Clinics 2020-01-02 2020-01-02 [facility] [id number] 16:56:00 16:56:00 t [place] s [employer] [facility] Medicine Outpati ent Clinics 2019-12-28 2019-12-28 [facility] [id number] [address] 11:00:00 11:00:00 t [place] [employer] [facility] Medicine Outpati ent Clinics 2019-12-28 2019-12-28 [facility] [id number] 11:00:00 11:00:00 t [place] [employer] [facility] Medicine Outpati ent Clinics 2019-11-14 2019-11-14 [facility] [id number] 10:45:00 10:45:00 t [place] [employer] [facility] Medicine Outpati ent Clinics 2019-10-31 2019-10-31 [facility] [id number] 10:54:00 10:54:00 t [place] [employer] [facility] Medicine Outpati ent Clinics 2019-10-14 2019-10-14 [facility] [id number] 09:59:00 09:59:00 t [place] s [employer] [facility] Medicine Outpati ent Clinics 2019-09-29 2019-09-29 [facility] [id number] 14:30:00 14:30:00 t [place] [employer] [facility] Medicine Outpati ent Clinics 2019-09-22 2019-09-22 [facility] [id number] 16[facility]54:00 16:54:00 t [place] [employer] [facility] Medicine Outpati ent Clinics 2019-08-23 2019-08-23 Outpatient [facility] [id number] [place] 00:00:00 00:00:00 LOPEZ [address] 2019-08-16 2019-08-16 [facility] [id number] 09[facility]30:00 09:30:00 t S[facility] Medicine Outpati ent Clinics 2019-07-21 2019-07-21 [facility] [id number] 08:00:00 08:00:00 t SENS[facility] Medicine Outpati ent Clinics 2019-07-12 2019-07-15 Inpatient FENG, [facility] 012 [id number] 60 [place] 00:00:00 00:00:00 TANNAFAREED [address] 2019-06-30 2019-06-30 [facility] [id number] 13:00:00 13:00:00 t [facility] Medicine Outpati ent Clinics 2019-06-27 2019-06-27 [facility] [id number] 09:57:00 09:57:00 t S[facility] Medicine Outpati ent Clinics 2019-05-11 2019-05-11 [facility] [id number] 11:15:00 11:15:00 t SENS[facility] Medicine Outpati ent Clinics 2019-04-19 2019-04-19 Outpatient KAYE [facility] [id number] 181 [place] 00:00:00 00:00:00 LAUREL [address] 2019-04-19 2019-04-19 Outpatient KAYE, [facility] [id number] [place] 00:00:00 00:00:00 LAUREL [address] 2019-04-11 2019-04-11 [facility] [id number] 13:15:00 13:15:00 t S[facility] Medicine Outpati ent Clinics 2019-03-28 2019-03-28 [facility] [id number] 14:30:00 14:30:00 t SENS[facility] Medicine Outpati ent Clinics 2019-03-08 2019-03-08 [facility] [id number] 10:45:00 10:45:[address] [address] [place] - [address] [facility] Medicine l Medicine Outpati ent Clinics 2019-02-18 2019-02-18 [facility] [id number] 10:42:00 10:42:[address] [address] Luke [address] - Drive [facility] Medicine l Medicine Outpati ent Clinics 2019-01-25 2019-01-25 [facility] [id number] 10:00:00 10:00:00 [place] [employer] [employer] Luke s - Drive [facility] Medicine l Medicine Outpati ent Clinics 2019-01-05 2019-01-05 [facility] [id number] 11:44:00 11:44:00 [place] [employer] - Drive [facility] Medicine l Medicine Outpati ent Clinics 2018-10-27 2018-10-27 [facility] [id number] 10:15:00 10:15:00 [place] [employer] [employer] Luke s - Drive [facility] Medicine Medicine Outpati ent Clinics 2018-09-13 2018-09-13 [facility] [id number] 10:00:00 10:00:00 [place] [employer] - Drive [facility] Medicine l Medicine Outpati ent Clinics 2018-08-11 2018-08-11 [facility] [id number] 10:00:00 10:00:00 [place] [employer] [employer] Luke s - Drive [facility] Medicine l Medicine Outpati ent Clinics 2018-07-19 2018-07-19 [facility] [id number] [address] 09:15:00 09:15:00 [place] [employer] [employer] Luke s - Drive [facility] Medicine l Medicine Outpati ent Clinics 2018-06-07 2018-06-07 [facility] [id number] 08:00:00 08:00:[address] [employer] - Drive [facility] Medicine l Medicine Outpati ent Clinics 2018-02-26 2018-02-26 [facility] [id number] 09:30:00 09:30:[address] Luke [address] - Drive [facility] Medicine Outpati ent Clinics 2018-01-08 2018-01-08 [facility] [id number] 10:30:00 10:30:[address] [address] Luke [address] - Drive [facility] Medicine Outpati ent Clinics 2017-12-09 2017-12-09 [facility] [id number] 11:06:00 11:06:[address] [address] Luke [address] - Drive [facility] Medicine Outpati ent Clinics 2017-12-09 2017-12-09 [facility] [id number] 10:15:00 10:15:[address] Luke [address] - Drive [facility] Medicine Outpati ent Clinics 2017-11-18 2017-11-18 [facility] [id number] 10:32:00 10:32:00 t [place] [employer] [employer] Luke s - Drive [facility] Medicine Outpati ent Clinics 2017-11-18 2017-11-18 [facility] [id number] 09:00:00 09:00:[address] Luke [address] - Drive [facility] Medicine Outpati ent Clinics 2017-09-30 2017-09-30 [facility] [id number] 10:30:00 10:30:00 t [place] [employer] Luke s - Drive [facility] Medicine Outpati ent Clinics Results Test Description Test Time Test Comments Results Result Comments Source Standard Wheelchair Package (Under 250 lbs) 2020-10-25 15:57 :25 Test Item Value Reference Range Interpretation Comme nts SUPPLIER NAME (test code = 6415) [employer] SUPPLIER PHONE (test code = 6416) [phone] ORDER STATUS (test code = 6417) Delivery Successful DELIVERY NOTE (test code = 6419) REQUESTED DELIVEY DATE (test code = 10/25/2020 6420) ITEM DESCRIPTION (test code = 6423) Wheelchair Seat Cushion, 18 in, Qty: 1 General Use ACTUAL DELIVERY DATE (test code = 10/25/2020 6422) Yony Wongix minute walk w/ pulse [id number] 14:24:19 Test Item Value Reference Range Interpretation Comments Six Minute Walk Distance (ft) (test 476 Feet code = 7665) Six Minute Walk Distance (m) (test 145 m 308.16-586.16 code = 7614) SP02 at Rest (test code = 7617) 92 % Heart Rate at Rest (test code = 100 1/min 7615) Supplemental O2 During Rest (test 4 L/min code = 7624) BP Systolic at Rest (test code = 101 mmHg 7622) BP Diastolic at Rest (test code = 52 mmHg 7623) Carl Dyspnea Scale at Rest (test 3 code = 7619) Lowest SpO2 (test code = 7618) 82 % Highest Heart Rate (test code = 131 1/min 7616) Lap Count (test code = 7625) 3 Premature Stop (test code = 7621) 0 Number of Stops (test code = 7626) 0 Gait Speed (test code = 7627) 15.02 sec SP02 at after 1 minute (test code = 86 % 7630) Heart Rate after 1 minute (test 118 1/min code = 7629) Supplemental O2 after 1 minute 6 L/min (test code = 7634) SP02 at after 2 minutes (test code 84 % = 7636) Heart Rate after 2 minutes (test 126 1/min code = 7635) Supplemental O2 after 2 minutes 10 L/min (test code = 7640) SP02 at after 3 minutes (test code 82 % = 7642) Heart Rate after 3 minutes (test 128 1/min code = 7641) Supplemental O2 after 3 minutes 10 L/min (test code = 7646) SP02 at after 4 minutes (test code 86 % = 7648) Heart Rate after 4 minutes (test 130 1/min code = 7647) Supplemental O2 after 4 minutes 10 L/min (test code = 7652) SP02 at after 5 minutes (test code 86 % = 7654) Heart Rate after 5 minutes (test 131 1/min code = 7653) Supplemental O2 after 5 minutes 15 L/min (test code = 7658) SP02 at after 6 minutes (test code 89 % = 7660) Heart Rate after 6 minutes (test 131 1/min code = 7659) Supplemental O2 after 6 minutes 15 L/min (test code = 7664) BP Systolic after 6 minutes (test 119 mmHg code = 7662) BP Diastolic after 6 minutes (test 62 mmHg code = 7663) Carl Dyspnea Scale after 6 minutes 4 (test code = 7661) Six Minute Walk Distance Predicted 447 (test code = 5645) Six Minute Walk Distance % 32.4 % Predicted (test code = 5646) [place] [facility] pre & post w/ bronchodilator, diffusion, lung [id number] 13:02:24 Test Item Value Reference Range Interpretation Comments FEV1 Post (test code = 0.83 L 1.05-2.01 5349) FVC Post (test code = 1.78 L 1.51-2.64 5356) FEV1/FVC % Post (test 46.49 % 64.86-84.45 code = 5363) FEF 25-75% Post (test 0.41 L/s 0.26-2.30 code = 5549) PEF Post (test code = 1.58 L/s 2.87-5.68 5369) DLCO Pre (test code = 1.62 See_Comment [Auto mated message] 5985) The system [facility] generated this result transmitted ref erence range: 10.89 - 23.89 ml/(min*mmHg). The reference range was not used to interpr et this result as normal/abnormal . DLCOc Pre (test code = 1.77 See_Comment [Aut omated message] 0063) The system [facility] generated this result transmitted ref erence range: 10.89 - 23.89 ml/(min*mmHg). The reference range was not used to interpr et this result as normal/abnormal . DL/VA Pre (test code = 0.55 See_Comment [Aut omated message] 0477) The system [facility] generated this result transmitted ref erence range: 3.15 - 5 .79 ml/(min*mmHg*L) . The reference range was not used to interpr et this result as normal/abnormal . KCOc SB Pre (test code 0.6 See_Comment [Aut omated message] = 5040) The system [facility] generated this result transmitted ref erence range: 3.15 - 5 .79 ml/(min*mmHg*L) . The reference range was not used to interpr et this result as normal/abnormal . VA SB Pre (test code = 2.93 L 2.98-5.18 5444) Hb Pre (test code = 11 g(Hb)/dL 5540) VC Pre (test code = 1.75 L 1.51-2.64 5374) ERV Pre (test code = 0.52 L 0.49-0.49 5381) FRCpl Pre (test code = 2.48 L 1.55-3.20 5388) IC Pre (test code = 1.24 L 1.27-1.27 5395) RV Pre (test code = 1.96 L 1.31-2.46 5402) RV % TLC Pre (test 52.84 % 35.21-54.39 code = 5409) TLC Pre (test code = 3.71 L 2.95-4.92 5416) Raw Pre (test code = 8.82 See_Comment [Autom ated message] 5507) The system [facility] generated this result transmitted ref erence range: 3.06 - 3 .06 cmH2O*s/L. The reference range was not used to interpr et this result as normal/abnormal . R0.5IN Pre (test code 4.27 See_Comment [Auto mated message] = 5514) The system [facility] generated this result transmitted ref erence range: 3.06 - 3 .06 cmH2O*s/L. The reference range was not used to interpr et this result as normal/abnormal . sR0.5IN Pre (test code 12.46 cmH2O*s = 5521) sGaw Predicted (test 0.04 See_Comment [Autom ated message] code = 5528) The system [facility] generated this result transmitted ref erence range: 0.10 - 0 .10 1/(cmH2O*s). Th e reference range was not used to interpr et this result as normal/abnormal . FEV1 Pre (test code = 0.93 L 1.05-2.01 5348) FVC Pre (test code = 1.75 L 1.51-2.64 5354) FEV1/FVC % Pre (test 52.79 % 64.86-84.45 code = 5361) FEF 25-75% Pre (test 0.42 L/s 0.26-2.30 code = 5547) PEF Pre (test code = 2.16 L/s 2.87-5.68 5367) FEV1 Predicted (test 1.53 code = 5302) FEV1 LLN (test code = 1.05 5347) FEV1 % Pre of 60.4 % Predicted (test code = 5308) FEV1 % Post of 54 % Predicted (test code = 5350) FEV1 % Change (test -10.5 % code = 5351) FVC Predicted (test 2.07 code = 5307) FVC LLN (test code = 1.51 5353) FVC % Pre of Predicted 84.6 % (test code = 5355) FVC % Post of 85.9 % Predicted (test code = 5357) FVC % Change (test 1.6 % code = 5358) FEV1/FVC % Predicted 75 (test code = 5359) FEV1/FVC % LLN (test 65 code = 5360) FEV1/FVC % Pre of 70.7 % Predicted (test code = 5362) FEV1/FVC % Post of 62.3 % Predicted (test code = 5364) FEV1/FVC % Change -11.9 % (test code = 5365) FEF 25-75% Predicted 1.28 (test code = 5546) FEF 25-75% LLN (test 0.26 code = 5545) FEF 25-75% % Pre of 32.8 % Predicted (test code = 5548) FEF 25-75% % Post of 32.4 % Predicted (test code = 5550) FEF 25-75% % Change -1.3 % (test code = 5551) PEF Predicted (test 4.28 code = 5310) PEF LLN (test code = 2.87 5366) PEF % Pre of Predicted 50.4 % (test code = 5368) PEF % Post of 37 % Predicted (test code = 5370) PEF % Change (test -26.7 % code = 5371) VC Predicted (test 2.07 code = 5372) VC LLN (test code = 1.51 5373) VC % Pre of Predicted 84.5 % (test code = 5375) ERV Predicted (test 0.49 code = 5379) ERV LLN (test code = 0.49 5380) ERV % Pre of Predicted 104.4 % (test code = 5382) FRCpl % Predicted 2.38 (test code = 5386) FRCpl % LLN (test code 1.55 = 5387) FRCpl % Pre of 104.3 % Predicted (test code = 5389) IC Predicted (test 1.27 code = 5393) IC LLN (test code = 1. 5394) IC % Pre of Predicted 97.6 % (test code = 5396) RV Predicted (test 1.88 code = 5400) RV LLN (test code = 1.31 5401) RV % Pre of Predicted 104.3 % (test code = 5403) RV % TLC Predicted 45 (test code = 5407) RV % TLC LLN (test 35 code = 5408) RV % TLC % Pre of 117.9 % Predicted (test code = 5410) TLC Predicted (test 3.93 code = 5414) TLC LLN (test code = 2.95 5415) TLC % Pre of Predicted 94.5 % (test code = 5417) Raw Predicted (test 3.06 code = 5505) Raw LLN (test code = 3.06 5506) Raw % Pre of Predicted 288.3 % (test code = 5508) R0.5IN Predicted (test 3.06 code = 5512) R0.5IN LLN (test code 3.06 = 5513) R0.5IN % Pre of 139.5 % Predicted (test code = 5515) sGaw Predicted (test 0.1 code = 5526) sGaw LLN (test code = 0.1 5527) sGaw % Pre of 38.1 % Predicted (test code = 5529) DLCO Predicted (test 17.39 code = 5421) DLCO LLN (test code = 10.89 5422) DLCO % Pre of 9.3 % Predicted (test code = 5424) DLCOc Predicted (test 17.39 code = 5428) DLCOc LLN (test code = 10.89 5429) DLCOc % Pre of 10.2 % Predicted (test code = 5431) DL/VA Predicted (test 4.47 code = 5435) DL/VA LLN (test code = 3.15 5436) DL/VA % Pre of 12.4 % Predicted (test code = 5438) KCOc SB Predicted 4.47 (test code = 5533) KCOc SB LLN (test code 3.15 = 5534) KCOc SB % Pre of 13.5 % Predicted (test code = 5536) VA SB Predicted (test 4.08 code = 5442) VA SB LLN (test code = 2.98 5443) CO SB % Pre of 71.8 % Predicted (test code = 5445) [place] [facility] [id number] 14:22:03 Test Item Value Reference Range Interpretation Comments Misc test name HBCM (test code = 2566) Misc test result see comment Hepatitis B Virus Core (test code = 1730) Antibody, IgM [facility]UP test code [id number] H epatitis B Core Antibody , IgM Negative (Ref Interval: Negat gallo) INTERPRETIVE INFORMATION: He patitis B Core Ab, IgM Th is assay should not be u sed for blood donor scr eening, associated re-e ntry protocols, or f or screening Human Cells, Tissues and Chelsey lular and Tissue-Based Pr oducts (HCT/P). ========= ========= Test performed by:[id number] [place] [address] lab [id number] 22:54:57INTERVENTIONAL CARDIOLOGY PROCEDURE NOTE[ Lopez Luz MD | Kari Carmona MD | Cullen Edwards MD ] PATIENT: Seema Romo, MR#: [id number], : 1945 DATE OF SERVICE: 10/19/2020 Pre-Procedure Diagnosis: Pulmonary HTN Post-Procedure Diagnosis: Same Procedure Performed: - Right heart catheterization (RHC)- Ultrasound access: RIJ- Monitoring under moderate sedation for 45 minutes - Pharmacologic vasodilator challenge study Cover Marker: Sukh Anesthesia/Sedation: Moderate Sedation (IVVersed and IV Fentanyl) Specimens: None Estimated Blood Loss: 5 mL Iodinated Contrast: 0 mL Blood Administered: None Grafts or Implants: None Complications: None Hemodynamic / oximetric Findings at b aseline 4L O2: Right atrium: 6 mm Hg (mean)Right ventricle: 97/1 EDP 14 mm HgPulmonary artery: 97/35 mean 55 mm HgWedge: 6 mm HgTPG 41 Pulmonary artery saturation: 72.5 %Systemic artery saturation: 95%Cardiac output / index (Estimated Caitlyn): 3.28 / 2.61 Pulmonary vascular resistance: 12.5 Wood's Units (W.U.) Hemodynamic / oximetric Findings with 100% O2 via non rebreather: Pulmonary artery: 88/33mean 50 mm HgWedge: 7 mm HgTPG 43 Pulmonary artery saturation: 78.1 %Systemic artery saturation: 98 %Cardiac output / index (Estimated Caitlyn): 3.63 / 2.89 Pulmonary vascular resistance: 11.8 Wood's Units (W.U.) Hemodynamic / oximetric Findings with 40ppm NO: Pulmonary artery: 64/23 mean 34 mm HgWedge: 9 mm HgTPG 25 Pulmonary artery saturation: 81.3 %Systemic artery saturation: 97 %Cardiac output / index (Estimated Caitlyn): 4.68 / 3.72 Pulmonary vascular resistance: 5.34 Wood's Units (W.U.) Procedure Details:- Right internal jugular vein cannulated under ultrasound guidance- 7 [place] sheath in right internal jugular vein- RHC and oximetric data obtained using a 7 [place] Hammond-Tejal catheter Plan / Recommendations: - Will discuss the results with pHTN team Thank you for the opportunity to be of assistance. Please call if questions arise. Lopez Luz MD [facility] FSCAIClinical and Interventional CardiologyOffice: ; Answering Service: [phone]: [phone] MethodistTransthoracic Echocardiogram Complete, (w Contrast, Strain and 3D if needed)2020-10-18 17:34:00Interface, Radiology Results In - 10/18/2020 5:35 PM CDT Echocardiography Report [id number] [address], [place] [address] [facility].Name: SEEMA ROMO Elsa.ID: [id number] .Date: 10/18/2020 Refer.MD: SWATI VALDIVIA MD Exam Time: 4:27:00 PM Study Type:Routine Echo Height: 57in Weight: 86lb BSA: 1.26 m2 Age: 6 1945,74Y Sex: FEMALE BP: 112/58 HR: 86 bpm Sonogrphr: JUAN LUIS Carrasquillo Pat. Stat.:Inpatient Room: N7780-F Study Status:Final Echo Event ID:[id number] Order ID: [id number] Reason for Study:Pulmonary Hypertension - Re-Evaluation of knownpulmonary hypertension if change in clinical status or cardiac exam orto guide therapyHistory / Clinical:COPD Procedures: 2D Echo, Colorflow Doppler, Portable, Intravenous Lumaso nContrastRace: C SUMMARY: LV EF is hyperdynamic.RV size is severely enlarged. RV systolic function is severelydepressed.RA volume is severely enlarged.Mod-severe tricuspid regurgitationLV filling pressureis normal.Estimated PA systolic pressure is 95 mmHg, assuming a mean RAP of 10mmHg.Since Apr 2020, PA pressure and RV function has worsened. FINDINGS: LV: LV size is normal. LV EF is hyperdynamic. Overall wall motion is hyperdynamic. Estimated EF is >70%. Septal motion is paradoxical secondary to RV systolic pressure overload.RV: RV size is severely enlarged. RV systolic function is severely depressed.LA: LA size is normal.RA: RA volume is severely enlarged.AO: Aortic root diameter is normal.MARTY: No pericardial effusion.AV: No structural AV abnormalities noted.MV: No structural MV abnormalities noted.PV: No structural PV abnormalities noted.TV: Dilated tricuspid annulus with poor coaptation. Moderate to severe tricuspid regurgitati onDias: LV filling pressure is normal.Other: Estimated PA systolic pressure is 95 mmHg, assuming a mean RAP of 10 mmHg. MEASUREMENTS: 2DParasternal Long [place] Ao An 2.1 cm LVPWd 0.85 cm Ao Rtd 2.9 cm Index 2.3 cm/m2 LA Ds 3.3 cm IVSd 0.62 cm RWT 0.53 LVIDd 3.2 cm Index 2.6 cm/m2 LV Mass 58 g (87-129) LVIDs 1.4 cm LVM Index 46 g/m2 LV%fs 58 % LVOT 1.8 cm LA Sng Plane LA Area 13 cm2 (8.8-23.4) LA Vol 25 ml Index 20 ml/m2 LA LngAx 5.8 cm RA Sng Plane RA Vol 64 ml Index 51 ml/m2 RA LngAx 4.5 cm RA Area 19 cm2 (8.3-19.5)LVOT LVOT Area 2.5 cm2 DOPPLERLVOT Stroke Vol & Cardiac Out LVOT TVI 18 cm HR 98 bpm LVOT LVOT SV 46 ml LVOT CO 4.5 l/min SVi 37 ml/m2 LVOT CI 3.6 l/m/m2MV E/A Ratio MV pkE 43 cm/s (60- 130) MV E/A 0.54 MV pkA 81 cm/s Right Ventricle RV Sm 12 cm/s Signed 10/18/2020 05:34 Rashad Angela M.D.[place] [facility] 12 [id number] 17:22:51 Test Item Value Reference Range Interpretation Comments Ventricular rate (test 105 code = 253) Atrial rate (test code = 105 255) OH interval (test code = 126 266) QRSD interval (test code 84 = 260) QT interval (test code = 314 264) QTC interval (test code = 415 265) P axis 1 (test code = 83 267) QRS axis 1 (test code = 264 268) T wave axis (test code = 70 270) EKG impression (test code Sinus = 273) tachycardia-Electron ically Signed By Brenton Freedman MD ([id number]) on 10/18/2020 5:22:50 PM [facility] Lung Perfusion [id number] 14:14:13Hm Interface, Radiology Results 10/18/2020 2:17 PM CDT CLINICAL HISTORY: r o CTEPDTECHNIQUE:Ventilation imaging was not performeddue to contamination concerns regarding Covid-19. The patient was injected with 5 mCi of technetium-9 9m-MAA intravenously, followed by imaging of the lungs in anterior, posterior, and oblique projections. FINDINGS: Very large perfusion defect involving much of the left upper lobe and extending into the mid lung has an appearance favoring a nonsegmental etiology and is likely secondary to severe emphysematous changes seen on recent CT. Similar, but considerably milder, findings are present in the right upper lobe and right mid lung. Small perfusion defect in the left lung base.IMPRESSION: Low Probability of pulmonary embolism. No significant change from 08/09/2018.[facility]-[id number] MethodistCT Chest Wo [id number] 14:13:57Hm Interface, Radiology Results - 10/18/2020 2:17 PM CDT EXAMINATION:CT CHEST WO CONTRASTCLINICAL HISTORY:Interstitial lung disease, Chest pain or SOB pleurisy or effusion suspected, ILD protocolTECHNIQUE: Multiple axial images of the chest were obtained without intravenous contrast. The lack of intravenous contrast reduces the sensitivity of detecting solid organ disease and evaluating vasculature. CT images were obtained usinglow-dose technique with automated exposure control. Sagittal and coronal computerized reformatted images were also obtained. ILD protocol utilized including expiration and prone imaging.COMPARISON:CT from 07/14/2019FINDINGS:Lungs and airways: There is severe diffuse centrilobular emphysema, similar to prior study. There is mild right apical pleuroparenchymal scarring. Cyst left upper lobectomy. No suspicious nodule or pulmonary consolidation.Pleura: No pleural effusion or pneumothorax.Mediastinum andlymph nodes: No lymphadenopathy. Cardiovascular: The heart size is normal. No pericardial effusion. Thoracic aorta is normal in caliber with atherosclerotic calcification.Upper abdomen: Areas of scarring in the upper pole of the left kidney with subjacent 4 mm calyceal calculus.Bones: No suspicious osseous lesions. Other: None.IMPRESSION:Severe diffuse centrilobular emphysema. Status post left upper lobectomy. No suspicious nodule or consolidation. [id number] MethodistXR Chest 1 Vw [id number] 21:34:49Hm Interface, Radiology Results 10/17/2020 9:37 PM CDT EXAMINATION: XR CHEST 1 VW PORTABLECLINICAL HISTORY: shortness of breathCOMPARISON: 07/12/2019IMPRESSION:1.The heart size is normal. The central vasculature is normal. Thereare some postsurgical changes on the left.2.The lungs are emphysematous. There are some combined fibrotic changes. There is some stable biapical pleural thickening. No acute consolidation or effusion.3.The bones are demineralized. Old right rib fracture.[id number] MethodistBone Density [id number] 15:26:28Hm Interface, Radiology Results 06/15/2020 3:29 PM CST EXAMINATION: BONE DENSITY PERIPHERALCLINICAL HISTORY: M81.0 Age- related osteoporosis without current pathological fracture, M81.0COMPARISON: None.The results of this study expressed as bone mineral density (BMD) were as follows:Left Forearm (Radius 33%):BMD: 0.508 g/vi0V-Dhfdq: -4.2Percent Change:9.0Impression: Bone Mineral Density measurements as noted.[facility]- [id number] copy of this scans including a report detailing these results will follow.Note: The world health organization (WHO) has classified the patient's T- score as follows:Above (-1) as normal(-1) to (-2.5) as low (osteopenia)Below (- 2.5) as abnormally low (osteoporosis, increased fracture risk)[id number] [place] MethodistBone [id number] 15:21:40Hm Interface, Radiology Results 06/15/2020 3:24 PM CST EXAMINATION: BONE DENSITYCLINICAL HISTORY: M81.0 Age-related osteoporosis without current pathological fracture, M81.0COMPARISON: 04/19/2019 The results of this study expressed as bone mineral density (BMD) were as follows:AP spine (L1-L4)BMD: 0.890 g/wk0L-Unnog: -2.4, osteopenia.Percent change: -1.3 Dual Femur (Total Mean):BMD: 0.703 g/fd0A-Fhwjh: -2.4, osteopenia.Percentchange: 4.5Impression: Bone mineral density values as above.[facility]-[id number] copy of this scans including a report detailing these results will follow.Note: The world health organization (WHO) has classified the patient's T-score as follows:Above (-1) as normal(-1) to (-2.5) as low (osteopenia)Below (-2.5) as abnormally low (osteoporosis, increased fracture risk)Dual femur FRAX:Risk factors: None.10 year probability of fracture:1. Major osteoporotic: 14.8%2. Hip:5.4%3. Based on dual femur left neck BMDCACHE [facility]-[id number] MethodistSARS-CoV2/RT-PCR ([facility]) 2020-02-03 01:04:00 Test Item Value Reference Range Interpretation Comments SARS-COV2/RT-PCR Negative Not Detected, (test code = Negative, See 12485-0) external report for linked test SARS-COV-2 [facility] (test code = 27902-8) TATA (test code = Negative result for this TATA) test determines that SARS-CoV-2 RNA was not [...] of the Act. Fact Sheet for Healthcare Providers:https://www.[employer]/sites/default/f elisabet/product/documents/F act_Sheet_HC_Providers_L ovj_KQTL-PeC-0.pdf Fact Sheet for Healthcare Patients:https://www.[employer]/sites/default/fi les/product/documents/Fa ct_Sheet_Patients_Lyra_S ARS-CoV-2.pdf Performing Laboratory:[address] [address] [facility])2020-02-03 01:04:00 Test Item Value Reference Range Interpretation Comments SARS-COV2/RT-PCR (test Negative Not Detected, Negative, code = 7927821) See external report for linked test SARS-COV-2 PERFORMING LAB [facility] (test code = 9676754) Negative result for this test determines that [...] 564(g) of the Act.Fact Sheet for Healthcare Providers:https://www.[employer]/sites/default/files/product/documents/Fact_Shee v_JG_Gjoowquxv_Urfv_DKTM-BpM-6.pdfFact Sheet for Healthcare Patients:https://www.[employer]/sites/default/files/product/ documents/Zcfb_Iqbif_Otsbcjoi_Bqya_NRUI-ZcY-1.pdfPerforming Laboratory:[facility], [place] [address]FSSH-QLV8/RT-PCR ([facility])2019-11-24 06:46:00 Test Item Value Reference Range Interpretation Comments SARS-COV2/RT-PCR (test Not Detected Not Detected, Negative code = 8520814) SARS-COV-2 PERFORMING LAB [facility] (test code = 3526708) Negative results do not preclude SARS-CoV-2 infection [...] of the Act.Fact Sheet for Healthcare Pro viders:https://www.[employer]/Documents/Xpert%20Xpress%20SARS%20CoV-2/Fact%20Sh eets/302-3802%18SFYP-YOD-5%20HEALTHCARE%20PROVIDERS%20FACT%20SHEET.pdfFact Sheet for Healthcare Patients:https://www.[employer]/Documents/Xpert%20Xpress%20SARS%20CoV-2/Fact%20Sheets/3023801%20SARS-COV -2%20PATIENT%20FACT%20SHEET.pdfPerforming Laboratory:[address], [place] [address]QYUI-BGQ4/RT-PCR ([facility]) 2019-11-07 23:10:00 Test Item Value Reference Range Interpretation Comments SARS-COV2/RT-PCR (test Not Detected Not Detected, Negative code = 3294708) SARS-COV-2 PERFORMING LAB [facility] (test code = 0022990) Negative results do not preclude SARS-CoV-2 infection [...] of the Act.Fact Sheet for Healthcare Pro viders:https://www.[employer]/Documents/Xpert%20Xpress%20SARS%20CoV-2/Fact%20Sh eets/3023802%47UMWF-DGQ-0%20HEALTHCARE%20PROVIDERS%20FACT%20SHEET.pdfFact Sheet for Healthcare Patients:https://www.[employer]/Documents/Xpert%20Xpress%20SARS%20CoV-2/Fact%20Sheets/3023801%20SARS-COV -2%20PATIENT%20FACT%20SHEET.pdfPerforming Laboratory:[place] [address] [address] [place], [place] [address]JFUVFH CULTURE + GRAM [id number] 12:13:00 Test Item Value Reference Range Interpretation [...] 0-5 epithelial (BEAKER) (test code cells = 269339) GRAM STAIN RESULT No organisms seen (BEAKER) (test code = 919020) 4+ Normal respiratory yenni presentVANCOMYCIN LEVEL, [id number] 09:25:00 Test Item Value Reference Range Interpretation Comments VANCOMYCIN TROUGH (BEAKER) (test 11.9 ug/mL 10.0-20.0 code = 522) Please draw 30 min prior to scheduled dose.If vancomycin trough level > 20 mcg/mL, hold next vancomycin dose, and contact MD and pharmacist.CBC W/PLT COUNT & AUTO [id number] 06:38:00 Test Item Value Reference Range Interpretation [...] (BEAKER) (test code = 2801) BASIC METABOLIC [id number] 05:44:00 Test Item Value Reference Range Interpretation [...] APPLICABLE FOR DIALYSIS PATIEN TS. BASIC METABOLIC [id number] 05:45:00 Test Item Value Reference Range Interpretation [...] PATIEN TS. CBC W/PLT COUNT & AUTO [id number] 05:39:00 Test Item Value Reference Range Interpretation [...] (BEAKER) (test code = 2801) RESPIRATORY PANEL [id number] 20:29:00 Test Item Value Reference Range Interpretation [...] decisions. This sample was tested at the [facility] using the [employer] FilmArray Respiratory Panel. It is FDA cleared and has been verified and approved by the [facility] for clinical use on nasopharyngeal swab specimens.The performance of the FilmArrayRP has not been established in individuals who received influenza vaccine. Recent administration ofa nasal influenza vaccine may cause false positive results for Influenza A and/orInfluenza B.VANCOMYCIN LEVEL, [id number] 10:07:00 Test Item Value Reference Range Interpretation Comments VANCOMYCIN TROUGH (BEAKER) (test 10.0 ug/mL 10.0-20.0 code = 522) Please draw 30 min prior to scheduled dose.If vancomycin trough level > 20 mcg/mL, hold next vancomycin dose, and contact MD and pharmacist.BASIC METABOLIC [id number] 07:57:00 Test Item Value Reference Range Interpretation [...] PATIEN TS. CBC W/PLT COUNT & AUTO [id number] 07:43:00 Test Item Value Reference Range Interpretation [...] 0-1 PERCENT (BEAKER) (test code = 2801) (CELLAVISION MANUAL DIFF)2019-03-20 10:21:00 Test Item Value [...] = 3438) Received comment: User comments: Slide comments:CBC W/PLT COUNT & AUTO [id number] 10:21:00 Test Item Value Reference Range Interpretation [...] WBC 0-0 (BEAKER) (test code = 413) STREP PNEUMONIAE [id number] 09:40:00 Test Item Value Reference Range Interpretation [...] detection limit of the test. LEGIONELLA ANTIGEN, [id number] 09:40:00 Test Item Value Reference Range Interpretation Comments L. PNEUMOPHILA Negative - see Negative fo r L. SEROGP 1 UR AG comment pneumophila (BEAKER) (test code serogrou p 1 antigen, = 1156) suggesting no r ecent or current infe ction with this serog roup. Legionellosis c annot be ruled out si nce other serogroup s and species may cau se disease. BASIC METABOLIC [id number] 08:58:00 Test Item Value Reference Range Interpretation [...] S NOT APPLICABLE FOR DIALYSIS PATIEN TS. [id number] 08:58:00 Test Item Value Reference Range Interpretation Comments CREATININE (BEAKER) 0.78 mg/dL 0.57-1.25 (test code = 358) EGFR (BEAKER) (test 72 mL/min/1.73 ESTIMA LISA GFR IS code = 1092) sq m NOT ACCURATE CREATININE CLEARANCE IN PREDICTING GLOMERULAR FILTRATION RATE . ESTIMATED GFR I S NOT APPLICABLE FOR DIALYSIS PATIEN TS. BASIC METABOLIC [id number] 07:10:00 Test Item Value Reference Range Interpretation [...] NOT APPLICABLE FOR DIALYSIS PATIEN TS. PROTHROMBIN [id number] 07:01:00 Test Item Value Reference Range Interpretation [...] % 0-1 PERCENT (BEAKER) (test code = 6265)
[2020-11-15 07:26] LABS: Arterial Blood Carboxyhemoglob 1.4 % (0-1.5); Blood Gas Oxyhemoglobin 95.4 % (94-97); Blood O2 Saturation 97.5 % (92-98.5)
[2020-11-15 07:26] LABS: Absolute Lymphocytes (CBC) 1.3 K/uL (0.7-4.9); Basophils % 0.4 % (0-1.3); Hematocrit 45.4 % (36.0-45.0); Lymphocytes % 4.4 % (15.3-44.8); MPV 7.7 fL (7.6-11.3); RBC Red Blood Cell Count 4.78 M/uL (3.86-4.86)
[2020-11-15] MEDS ORDERED: NA CHLORIDE 0.9% 500 ML ONE ×2 (07:28→11:59)
[2020-11-15] MEDS ORDERED: IPRATROPIUM BROM 0.5MG/2.5ML ONE ×2 (07:28→13:55)
[2020-11-15] MEDS ORDERED: METHYLPREDNISOLONE 125 MG INJ ONE (07:28)
[2020-11-15] MEDS ORDERED: NA CHLORIDE 0.9% 1,000 ML ONE ×2 (07:28→16:28)
[2020-11-15] MEDS ORDERED: FAMOTIDINE 20 MG/2 ML VIAL IV ONE (07:29)
[2020-11-15] MEDS ORDERED: PIPER/TAZO/NS 3.375gm 3.375 GM/100 ML BAG ONE (07:29)
[2020-11-15 07:32] LABS: Protime INR 0.92
[2020-11-15] MEDS ORDERED: LEVALBUTEROL 1.25 MG/3 ML NEB ONE (07:34)
[2020-11-15 07:46] LABS: Albumin 3.3 g/dL (3.4-5.0); Bilirubin Direct 0.1 mg/dL (0-0.2); Bilirubin Total 0.5 mg/dL (0.2-1.0); Potassium 4.2 mmol/L (3.5-5.1); Protein, Total 6.2 g/dL (6.4-8.2); Troponin (Emerg Dept Use Only) 0.04 ng/mL (0.0-0.045)
[2020-11-15 07:56] LABS: Blood Morphology Comment NOT SEEN (NOT SEEN); Platelet Estimate ADEQ
[2020-11-15] MEDS ORDERED: ACETAMINOPHEN 325 MG TABLET ONE (07:59)
[2020-11-15] MEDS ORDERED: AZITHROMYCIN IV 500 MG in NA CHLORIDE 0.9% 250 ML IVPB ONE (08:00)
[2020-11-15 08:22] LABS: SARS-COV-2 RT PCR NEGATIVE (NEGATIVE)
--- NOTE | 2020-11-15 08:29 | RAD REPORT ---
EXAM DESCRIPTION: Jade Single View11/15/2020 7:53 am CLINICAL HISTORY: Cough COMPARISON: September 2020 FINDINGS: Mild progression the left basilar lung opacities No change bilateral extensive interstitial lung opacities. Heart is normal size The heart is normal s ize IMPRESSION: Extensive bilateral interstitial lung opacities consistent with pulmonary fibrosis A mild progression in the left basilar lung opacities may indicate a superimposed pneumonia/pneumonit is
--- NOTE | 2020-11-15 08:45 | EDPHYS ---
Physician Documentation [facility] Name: Seema Romo Age: 74 yrs Sex: Female : 1945 Arrival Date: 11/15/2020 Time: 06:57 Bed 3 Private MD: ED Physician Rufino Du HPI: 11/15 07:11 This 74 yrs old Female presents to ER via EMS with complaints of Breathing forrest Difficulty. 07:11 The patient has shortness of breath at rest, with light activity. Onset: The forrest symptoms/episode began/occurred 2 day(s) ago. Duration: The symptoms are continuous, and are steadily getting worse. The patient's shortness of breath is aggravated by nothing, is alleviated by nothing. Associated signs and symptoms: Pertinent positives: non-productive cough. Severity of symptoms: At their worst the symptoms were mild moderate in the emergency department the symptoms are unchanged. The patient or guardian reports airway noise, cough, described as mild, difficulty breathing, flu symptoms, arthralgias, myalgias. Severity of symptoms: At their worst the symptoms were mild, in the emergency department the symptoms are unchanged. Modifying factors: The symptoms are alleviated by nothing, the symptoms are aggravated by damp environment, exertion. Historical: - Allergies: 07:14 Bactrim; iw 07:14 Sulfa (Sulfonamide Antibiotics); iw - PMHx: 07:14 Anxiety; COPD; degenerative joint disease; Depression; fatty liver; Mycobacterium Avium iw Complex; neuropathy; Osteoporosis; shingles; - Immunization history:: Adult Immunizations up to date. - Family history:: not pertinent. - Social history:: Smoking status: unknown. ROS: 07:11 Constitutional: Negative for fever, chills, and weight loss, Eyes: Negative for injury, forrest pain, redness, and discharge, ENT: Negative for injury, pain, and discharge, Neck: Negative for injury, pain, and swelling, Cardiovascular: Negative for chest pain, palpitations, and edema, Abdomen/GI: Negative for abdominal pain, nausea, vomiting, diarrhea, and constipation, Back: Negative for injury and pain, : Negative for injury, bleeding, discharge, and swelling, MS/Extremity: Negative for injury and deformity, Skin: Negative for injury, rash, and discoloration, Neuro: Negative for headache, weakness, numbness, tingling, and seizure, Psych: Negative for depression, anxiety, suicide ideation, homicidal ideation, and hallucinations, Allergy/Immunology: Negative for hives, rash, and allergies, Endocrine: Negative for neck swelling, polydipsia, polyuria, polyphagia, and marked weight changes. 07:11 Respiratory: Positive for cough, shortness of breath, at rest. Exam: 07:11 Constitutional: This is a well developed, well nourished patient who is awake, alert, forrest and in no acute distress. Head/Face: Normocephalic, atraumatic. Eyes: Pupils equal round and reactive to light, extra-ocular motions intact. Lids and lashes normal. Conjunctiva and sclera are non-icteric and not injected. Cornea within normal limits. Periorbital areas with no swelling, redness, or edema. ENT: Nares patent. No nasal discharge, no septal abnormalities noted. Tympanic membranes are normal and external auditory canals are clear. Oropharynx with no redness, swelling, or masses, exudates, or evidence of obstruction, uvula midline. Mucous membranes moist. Neck: Trachea midline, no thyromegaly or masses palpated, and no cervical lymphadenopathy. Supple, full range of motion without nuchal rigidity, or vertebral point tenderness. No Meningismus. Chest/axilla: Normal chest wall appearance and motion. Nontender with no deformity. No lesions are appreciated. Abdomen/GI: Soft, non-tender, with normal bowel sounds. No distension or tympany. No guarding or rebound. No evidence of tenderness throughout. Back: No spinal tenderness. No costovertebral tenderness. Full range of motion. Female : Normal external genitalia. Skin: Warm, dry with normal turgor. Normal color with no rashes, no lesions, and no evidence of cellulitis. MS/ Extremity: Pulses equal, no cyanosis. Neurovascular intact. Full, normal range of motion. Neuro: Awake and alert, GCS 15, oriented to person, place, time, and situation. Cranial nerves II-XII grossly intact. Motor strength 5/5 in all extremities. Sensory grossly intact. Cerebellar exam normal. Normal gait. Psych: Awake, alert, with orientation to person, place and time. Behavior, mood, and affect are within normal limits. 07:11 Cardiovascular: Rate: tachycardic, actual rate is 127 bpm, Rhythm: regular, Pulses: Pulses are 4+ in bilateral radial, brachial, femoral, popliteal, posterior tibial and and dorsalis pedis arteries.. Heart sounds: normal, Edema: is not appreciated, JVD: is not appreciated. 07:11 Respiratory: mild respiratory distress is noted, moderate respiratory distress is noted, Respirations: labored breathing, that is moderate, Breath sounds: decreased breath sounds, rhonchi, that are moderate, Respiratory rate: 28 07:27 ECG was reviewed by the Attending Physician. forrest Vital Signs: 07:09 BP 90 / 60; Pulse 127; Resp 28 S; Pulse Ox 95% on BiPAP; iw 07:28 BP 96 / 60; Pulse 121; Resp 26; Temp 97.6; Pulse Ox 99% on BiPAP; ll1 07:30 Temp 99.8; ea 07:55 BP 103 / 55; Pulse 101; Resp 24; Pulse Ox 99% on BiPAP; ll1 08:00 BP 79 / 52; Pulse 111; Pulse Ox 99% ; ll1 08:15 BP 87 / 49; Pulse 112; Pulse Ox 99% ; ll1 08:30 BP 66 / 54; Pulse 117; Resp 24; Pulse Ox 100% on CPAP; ll1 08:48 BP 75 / 46; Pulse 100; Resp 24; Pulse Ox 100% on CPAP; ll1 09:05 BP 78 / 45; Pulse 101; Resp 20; Pulse Ox 100% on CPAP; ll1 09:47 BP 77 / 44; Pulse 95; Resp 19; Pulse Ox 100% on BiPAP; ll1 10:01 BP 81 / 54; Pulse 99; Resp 18 A; Pulse Ox 100% on BiPAP; ca1 10:20 BP 83 / 46; Pulse 102; Resp 18 A; Pulse Ox 97% on BiPAP; ca1 10:34 BP 81 / 56; Pulse 106; Resp 21 S; Pulse Ox 90% on 6 lpm NC; ca1 10:50 BP 81 / 51; Pulse 104; Resp 20 S; Pulse Ox 91% on 6 lpm NC; ca1 11:10 BP 81 / 48; Pulse 104; Resp 21 S; Pulse Ox 92% on 6 lpm NC; ca1 11:45 BP 81 / 45; Pulse 105; Resp 24 S; Pulse Ox 87% on 6 lpm NC; ca1 12:00 BP 88 / 50; Pulse 110; Resp 27 S; Pulse Ox 86% on 6 lpm NC; ca1 12:15 BP 86 / 56; Pulse 110; Resp 33 S; Pulse Ox 89% on 6 lpm NC; ca1 12:45 BP 88 / 52; Pulse 111; Resp 27 S; Pulse Ox 87% on 6 lpm NC; ca1 13:00 BP 56 / 51; Pulse 116; Resp 29 S; Pulse Ox 86% on 6 lpm NC; ca1 13:15 BP 89 / 57; Pulse 119; Resp 27 S; Pulse Ox 85% on 6 lpm NC; ca1 13:30 BP 82 / 53; Pulse 111; Resp 23 A; Pulse Ox 100% on BiPAP; ca1 13:45 BP 83 / 55; Pulse 106; Resp 19 A; Pulse Ox 100% on BiPAP; ca1 14:30 BP 93 / 58; Pulse 107; Resp 19 A; Pulse Ox 23% on BiPAP; ca1 08:30 Dr. Du informed. NS bolus started. Ordering medication t raise BP. ll1 MDM: 06:57 Patient medically screened. forrest 07:18 Differential diagnosis: Anemia Anxiety Reaction CHF exacerbation, Chronic Obstructive forrest Pulmonary Disease pneumonia, Pneumothorax Psychogenic pulmonary edema, Unstable Angina. Antibiotic administration: ZOSYN. The patient's Wells Deep Vein Thrombosis Score was calculated as follows: Heart Rate >100 BPM (1.5 Pts) Imm/Surg in last 4 wks (1.5 Pts) Total Score: 3-6 Pts - Mod Risk. Differential Diagnosis: Bronchitis Influenza Upper Respiratory Infection Sinusitis Pharyngitis Asthma Exacerbation Viral Syndrome Pneumonia. The patient's pulmonary embolism risk score was calculated as follows: the patients heart rate is greater than 100 beats per minute (1.5 Pts) patient has experienced immobilization or surgery in the last four weeks (1.5 Pts) Total Score: 3-6 points. This patient was found to be at moderate risk for a pulmonary embolism by using the Well's assessment criteria. Immunization status: Pneumococcal vaccine: Influenza vaccine: Data reviewed: vital signs, nurses notes, lab test result(s), EKG, radiologic studies, plain films. Data interpreted: monitor tech: rate is 127 beats/min, rhythm is regular, Pulse oximetry: on room air is 95 %. Test interpretation: by ED physician or midlevel provider: ECG, plain radiologic studies. Counseling: I had a detailed discussion with the patient and/or guardian regarding: the historical points, exam findings, and any diagnostic results supporting the discharge/admit diagnosis, the presence of at least one elevated blood pressure reading (>120/80) during this emergency department visit, lab results, radiology results, the need for further work-up and treatment in the hospital. 08:41 ED course: Pt taking midodrine at home, will add for borderline low BP, also added rn yobany for chronic steroid administration. Increased fluid bolus. Pt feels much better. Will admit to Dr. Suarez.. 09:21 ED course: Midodrine given. rn 11/15 07:02 Order name: Basic Metabolic Panel [facility] 11/15 07:02 Order name: CBC with Diff [facility] 11/15 07:02 Order name: LFT's [facility] 11/15 07:02 Order name: Magnesium; Complete Time: 08:21 [facility] 11/15 07:02 Order name: NT PRO-BNP; Complete Time: 08:21 [facility] 11/15 07:02 Order name: PT-INR; Complete Time: 07:44 [facility] 11/15 07:02 Order name: Troponin (emerg Dept Use Only); Complete Time: 08:21 [facility] 11/15 07:02 Order name: Blood Culture Adult (2) [facility] 11/15 07:02 Order name: ABG; Complete Time: 07:44 [facility] 11/15 07:44 Interpretation: Within normal limits. [facility] 11/15 07:02 Order name: Basic Metabolic Panel; Complete Time: 08:21 [facility] 11/15 07:02 Order name: CBC with Automated Diff; Complete Time: 08:21 [facility] 11/15 07:02 Order name: Liver (Hepatic) Function; Complete Time: 08:21 [facility] 11/15 07:02 Order name: XRAY Chest (1 view); Complete Time: 08:46 [facility] 11/15 07:28 Order name: Manual Differential; Complete Time: 08:21 [facility] 11/15 07:33 Order name: Lactate [facility] 11/15 08:22 Order name: COVID-19/FLU A+B; Complete Time: 08:46 [facility] 11/15 13:08 Order name: Troponin I [facility] 11/15 13:21 Order name: Procalcitonin [facility] 11/15 13:21 Order name: Procalcitonin [facility] 11/15 16:30 Order name: Lactate Sepsis 2 HR Follow-up [facility] 11/15 17:23 Order name: Glucose, Ancillary Testing [facility] 11/15 07:02 Order name: EKG; Complete Time: 07:03 [facility] 11/15 07:02 Order name: Cardiac monitoring; Complete Time: 07:06 [facility] 11/15 07:02 Order name: EKG - Nurse/Tech; Complete Time: 07:06 [facility] 11/15 07:02 Order name: IV Saline Lock; Complete Time: 07:06 [facility] 11/15 07:02 Order name: Labs collected and sent; Complete Time: 07:06 [facility] 11/15 07:02 Order name: O2 Per Protocol; Complete Time: 07:06 [facility] 11/15 07:02 Order name: O2 Sat Monitoring; Complete Time: 07:05 [facility] 11/15 13:08 Order name: CONS Physician Consult [facility] 11/15 13:08 Order name: Heart Healthy EDNM EC:27 Rate is 129 beats/min. Rhythm is regular. QRS [place] is Normal. IA interval is normal. [facility] QRS interval is normal. QT interval is normal. No Q waves. T waves are Normal. No ST changes noted. Clinical impression: Sinus tachycardia and No evidence of ischemia. Interpreted by me. Reviewed by me. Administered Medications: 07:15 Drug: Pepcid (famotidine) 20 mg Route: IVP; Site: right forearm; ea 09:49 Follow up: Response: No adverse reaction [facility] 07:20 Drug: NS 0.9% 500 ml Route: IV; Rate: bolus; Site: right forearm; ea 07:45 Follow up: Response: No adverse reaction; RASS: Alert and Calm (0); IV Status: ll1 Completed infusion; IV Intake: 500ml 07:20 Drug: SOLU-Medrol (methylPrednisoLONE) 125 mg Route: IVP; Site: right forearm; ea 09:50 Follow up: Response: No adverse reaction; RASS: Alert and Calm (0) 1 07:28 Drug: Zosyn (piperacillin-tazobactam) 3.375 grams Route: IVPB; Infused Over: 60 mins; ea Site: right forearm; 08:30 Follow up: Response: No adverse reaction; IV Status: Completed infusion; IV Intake: ll1 100ml 07:28 Drug: Xopenex (levalbuterol) 3.75 mg Route: Inhalation; ea 09:50 Follow up: Response: No adverse reaction ll1 07:28 Drug: AtroVENT (ipratropium) Aerosol 0.5 mg Route: Inhalation; ea 09:51 Follow up: Response: No adverse reaction; RASS: Alert and Calm (0) ll1 07:46 Drug: Tylenol 650 mg Route: PO; ll1 09:51 Follow up: Response: No adverse reaction; RASS: Alert and Calm (0) ll1 08:19 Drug: Zithromax (azithromycin) 500 mg Route: IVPB; Infused Over: 1 hrs; Site: right ll1 wrist; 09:51 Follow up: Response: No adverse reaction; RASS: Alert and Calm (0); IV Status: ll1 Completed infusion; IV Intake: 250ml 08:34 Drug: NS 0.9% 1000 ml Route: IV; Rate: 100 ml/hr; Site: right wrist; ll1 09:59 Follow up: Response: No adverse reaction; IV Status: Infusion continued upon admission ca1 08:55 Drug: NS 0.9% 1000 ml Route: IV; Rate: 1000 ml; Site: right wrist; ll1 09:53 Follow up: Response: No adverse reaction; IV Status: Completed infusion; IV Intake: ll1 1000ml 08:59 Drug: Solu-CORTEF (hyrdoCORTISONE) 100 mg Route: IVP; Site: right wrist; ll1 09:52 Follow up: Response: No adverse reaction ll1 09:20 Drug: midodrine 5 mg Route: PO; ll1 11:30 Drug: NS 0.9% 500 ml Route: IV; Rate: bolus; Site: right antecubital; ca1 12:15 Follow up: Response: No adverse reaction; IV Status: Completed infusion; IV Intake: ca1 500ml Disposition: 11/15/20 08:44 Hospitalization ordered by Dannielle Suarez for Inpatient Admission. Preliminary diagnosis are Chronic obstructive pulmonary disease with (acute) exacerbation, Chronic obstructive pulmonary disease with acute lower respiratory infection, Pneumonia, unspecified organism, Hypotension, unspecified, Hypoxemia. - Bed requested for Telemetry/MedSurg (Inpatient). - Status is Inpatient Admission. aa5 - Condition is Stable. - Problem is an acute exacerbation. - Symptoms have improved. Signatures: Dispatcher [employer] Kathryn Navas RN RN dw Anderson, Corey, MD MD cha Williams, Irene, RN RN iw Nieto Rufino, MD MD rn Hughes, Melisa, RN RN aa5 Mable Nichols, RN Kendy Yoder ea, RN JOLEEN ca1 Phyllis Pearson RN RN ll1 Corrections: (The following items were deleted from the chart) 07:41 07:03 CORONAVIRUS+MR.LAB.BRZ ordered. EDMS EDMS 07:41 07:03 Influenza Screen (A \T\ B)+BA.LAB.BRZ ordered. EDNM EDMS 11:31 08:44 Hospitalization Ordered by Dannielle Suarez MD for Inpatient Admission. Preliminary aa5 diagnosis is Chronic obstructive pulmonary disease with (acute) exacerbation; Chronic obstructive pulmonary disease with acute lower respiratory infection; Pneumonia, unspecified organism; Hypotension, unspecified; Hypoxemia. Bed requested for Telemetry/MedSurg (Inpatient). Status is Inpatient Admission. Condition is Stable. Problem is an acute exacerbation. Symptoms have improved. rn 17:19 11:31 11/15/2020 08:44 Hospitalization Ordered by Dannielle Suarez MD for Inpatient dw Admission. Preliminary diagnosis is Chronic obstructive pulmonary disease with (acute) exacerbation; Chronic obstructive pulmonary disease with acute lower respiratory infection; Pneumonia, unspecified organism; Hypotension, unspecified; Hypoxemia. Bed requested for [facility] ER HOLD. Status is Inpatient Admission. Condition is Stable. Problem is an acute exacerbation. Symptoms have improved. aa5 17:54 17:19 11/15/2020 08:44 Hospitalization Ordered by Dannielle Suarez MD for Inpatient aa5 Admission. Preliminary diagnosis is Chronic obstructive pulmonary disease with (acute) exacerbation; Chronic obstructive pulmonary disease with acute lower respiratory infection; Pneumonia, unspecified organism; Hypotension, unspecified; Hypoxemia. Bed requested for Telemetry/MedSurg (Inpatient). Status is Inpatient Admission. Condition is Stable. Problem is an acute exacerbation. Symptoms have improved. dw
--- NOTE | 2020-11-15 08:45 | ER ---
Nurse's Notes [facility] Name: Seema Romo Age: 74 yrs Sex: Female : 1945 Arrival Date: 11/15/2020 Time: 06:57 Bed 3 Private MD: Diagnosis: Chronic obstructive pulmonary disease with (acute) exacerbation;Chronic obstructive pulmonary disease with acute lower respiratory infection;Pneumonia, unspecified organism;Hypotension, unspecified;Hypoxemia Presentation: 11/15 07:09 Chief complaint: EMS states: pt has hx of COPD, diff breathing tonight, was 64% on home iw O2, placed on CPAP per EMS up to 95%. Coronavirus screen: shortness of breath, Client presents with at least one sign or symptom that may indicate coronavirus-19. Ebola Screen: Patient negative for fever greater than or equal to 101.5 degrees Fahrenheit, and additional compatible Ebola Virus Disease symptoms Patient denies exposure to infectious person. Patient denies travel to an Ebola-affected area in the 21 days before illness onset. No symptoms or risks identified at this time. Initial Sepsis Screen: Does the patient meet any 2 criteria? No. Patient's initial sepsis screen is negative. Does the patient have a suspected source of infection? No. Patient's initial sepsis screen is negative. Risk Assessment: Do you want to hurt yourself or someone else? Patient reports no desire to harm self or others. 07:09 Method Of Arrival: EMS: [facility] iw 07:09 Acuity: VADIM 2 iw 07:12 Onset of symptoms was November 15, 2020. iw Triage Assessment: 07:00 General: Appears uncomfortable, Behavior is restless. Pain: Denies pain. Respiratory: ea Reports labored breathing Airway is patent Respiratory effort is labored, Respiratory pattern is tachypnea Onset: The symptoms/episode began/occurred this morning, the patient has moderate shortness of breath. Historical: - Allergies: 07:14 Bactrim; iw 07:14 Sulfa (Sulfonamide Antibiotics); iw - PMHx: 07:14 Anxiety; COPD; degenerative joint disease; Depression; fatty liver; Mycobacterium Avium iw Complex; neuropathy; Osteoporosis; shingles; - Immunization history:: Adult Immunizations up to date. - Family history:: not pertinent. - Social history:: Smoking status: unknown. Screenin:26 Abuse screen: Denies threats or abuse. Nutritional screening: No deficits noted. ea Tuberculosis screening: No symptoms or risk factors identified. Fall Risk IV access (20 points). Assessment: 07:10 Respiratory: Patient placed on BiPAP:. ea 07:53 Respiratory: Airway is patent Trachea midline Respiratory effort is even, labored, ll1 Respiratory pattern is symmetrical, tachypnea Breath sounds are coarse in right middle lobe and right lower lobe Breath sounds are diminished in left upper lobe and left lower lobe. 07:54 General: Appears distressed, Behavior is calm, cooperative, appropriate for age. Pain: ll1 Denies pain. Neuro: No deficits noted. Cardiovascular: Heart tones S1 S2 Capillary refill < 3 seconds Clubbing of nail beds is absent JVD is absent Patient's skin is warm and dry. Rhythm is sinus tachycardia. GI: No deficits noted. 09:00 Reassessment: No changes from previously documented assessment. Patient and/or family ll1 updated on plan of care and expected duration. Pain level reassessed. 10:00 Reassessment: Patient appears in no apparent distress at this time. No changes from ca1 previously documented assessment. Patient and/or family updated on plan of care and expected duration. Pain level reassessed. 10:34 Reassessment: RT at bedside. Changed on O2 via NC at 6LPM. Pt reports home O2 at 6LPM, ca1 baseline SPO2 at home 90-92%. Pt tolerating O2 via NC at this time. SPO2 at 88-92%. 11:17 Reassessment: Patient appears in no apparent distress at this time. Patient and/or ca1 family updated on plan of care and expected duration. Pain level reassessed. Patient is alert, oriented x 3, equal unlabored respirations, skin warm/dry/pink. Pt tolerating O2 via NC. Eyes closed, resting. 12:00 Reassessment: Patient appears in no apparent distress at this time. No changes from ca1 previously documented assessment. Patient is alert, oriented x 3, equal unlabored respirations, skin warm/dry/pink. 13:00 Reassessment: Patient appears in no apparent distress at this time. No changes from ca1 previously documented assessment. Patient and/or family updated on plan of care and expected duration. Pain level reassessed. Respiratory: Airway is patent Respiratory effort is labored, pursed lip, Respiratory pattern is tachypnea. 13:17 Reassessment: pt placed back on BiPAP. ca1 13:17 Respiratory: Patient placed on BiPAP: Inspiratory Pressure: 14 Expiratory (EPAP) ca1 Pressure: 7 FiO2%: 45 Respiratory Rate: 14. 13:56 Reassessment: Patient appears in no apparent distress at this time. Patient and/or ca1 family updated on plan of care and expected duration. Pain level reassessed. Patient is alert, oriented x 3, equal unlabored respirations, skin warm/dry/pink. Pt n BiPAP, tolerating well. 14:30 Reassessment: Patient appears in no apparent distress at this time. No changes from ca1 previously documented assessment. Patient and/or family updated on plan of care and expected duration. Pain level reassessed. Patient is alert, oriented x 3, equal unlabored respirations, skin warm/dry/pink. Vital Signs: 07:09 BP 90 / 60; Pulse 127; Resp 28 S; Pulse Ox 95% on BiPAP; iw 07:28 BP 96 / 60; Pulse 121; Resp 26; Temp 97.6; Pulse Ox 99% on BiPAP; ll1 07:30 Temp 99.8; ea 07:55 BP 103 / 55; Pulse 101; Resp 24; Pulse Ox 99% on BiPAP; ll1 08:00 BP 79 / 52; Pulse 111; Pulse Ox 99% ; ll1 08:15 BP 87 / 49; Pulse 112; Pulse Ox 99% ; ll1 08:30 BP 66 / 54; Pulse 117; Resp 24; Pulse Ox 100% on CPAP; ll1 08:48 BP 75 / 46; Pulse 100; Resp 24; Pulse Ox 100% on CPAP; ll1 09:05 BP 78 / 45; Pulse 101; Resp 20; Pulse Ox 100% on CPAP; ll1 09:47 BP 77 / 44; Pulse 95; Resp 19; Pulse Ox 100% on BiPAP; ll1 10:01 BP 81 / 54; Pulse 99; Resp 18 A; Pulse Ox 100% on BiPAP; ca1 10:20 BP 83 / 46; Pulse 102; Resp 18 A; Pulse Ox 97% on BiPAP; ca1 10:34 BP 81 / 56; Pulse 106; Resp 21 S; Pulse Ox 90% on 6 lpm NC; ca1 10:50 BP 81 / 51; Pulse 104; Resp 20 S; Pulse Ox 91% on 6 lpm NC; ca1 11:10 BP 81 / 48; Pulse 104; Resp 21 S; Pulse Ox 92% on 6 lpm NC; ca1 11:45 BP 81 / 45; Pulse 105; Resp 24 S; Pulse Ox 87% on 6 lpm NC; ca1 12:00 BP 88 / 50; Pulse 110; Resp 27 S; Pulse Ox 86% on 6 lpm NC; ca1 12:15 BP 86 / 56; Pulse 110; Resp 33 S; Pulse Ox 89% on 6 lpm NC; ca1 12:45 BP 88 / 52; Pulse 111; Resp 27 S; Pulse Ox 87% on 6 lpm NC; ca1 13:00 BP 56 / 51; Pulse 116; Resp 29 S; Pulse Ox 86% on 6 lpm NC; ca1 13:15 BP 89 / 57; Pulse 119; Resp 27 S; Pulse Ox 85% on 6 lpm NC; ca1 13:30 BP 82 / 53; Pulse 111; Resp 23 A; Pulse Ox 100% on BiPAP; ca1 13:45 BP 83 / 55; Pulse 106; Resp 19 A; Pulse Ox 100% on BiPAP; ca1 14:30 BP 93 / 58; Pulse 107; Resp 19 A; Pulse Ox 23% on BiPAP; ca1 08:30 Dr. Du informed. NS bolus started. Ordering medication t raise BP. ll1 ED Course: 06:57 Patient arrived in ED. forrest 06:57 Chilango Jansen MD is Attending Physician. forrest 07:12 Triage completed. iw 07:14 Arm band placed on. iw 07:26 Patient has correct armband on for positive identification. Placed in gown. Bed in low ea position. Call light in reach. Side rails up X2. secured entrance monitor on. Pulse ox on. NIBP on. 07:26 Inserted saline lock: 20 gauge in right forearm, using aseptic technique. ea 07:28 Phyllis Pearson, JOLEEN is Primary Nurse. ll1 07:53 XRAY Chest (1 view) In Process Unspecified. EDMS 08:43 Attending Physician role handed off by Chilango Jansen MD rn 08:43 Rufino Du MD is Attending Physician. rn 08:43 Dannielle Suarez MD is Hospitalizing Provider. rn 13:51 No provider procedures requiring assistance completed. Patient admitted, IV remains in ca1 place. Administered Medications: 07:15 Drug: Pepcid (famotidine) 20 mg Route: IVP; Site: right forearm; ea 09:49 Follow up: Response: No adverse reaction ll1 07:20 Drug: NS 0.9% 500 ml Route: IV; Rate: bolus; Site: right forearm; ea 07:45 Follow up: Response: No adverse reaction; RASS: Alert and Calm (0); IV Status: ll1 Completed infusion; IV Intake: 500ml 07:20 Drug: SOLU-Medrol (methylPrednisoLONE) 125 mg Route: IVP; Site: right forearm; ea 09:50 Follow up: Response: No adverse reaction; RASS: Alert and Calm (0) ll1 07:28 Drug: Zosyn (piperacillin-tazobactam) 3.375 grams Route: IVPB; Infused Over: 60 mins; ea Site: right forearm; 08:30 Follow up: Response: No adverse reaction; IV Status: Completed infusion; IV Intake: ll1 100ml 07:28 Drug: Xopenex (levalbuterol) 3.75 mg Route: Inhalation; ea 09:50 Follow up: Response: No adverse reaction ll1 07:28 Drug: AtroVENT (ipratropium) Aerosol 0.5 mg Route: Inhalation; ea 09:51 Follow up: Response: No adverse reaction; RASS: Alert and Calm (0) ll1 07:46 Drug: Tylenol 650 mg Route: PO; ll1 09:51 Follow up: Response: No adverse reaction; RASS: Alert and Calm (0) 1 08:19 Drug: Zithromax (azithromycin) 500 mg Route: IVPB; Infused Over: 1 hrs; Site: right ll1 wrist; 09:51 Follow up: Response: No adverse reaction; RASS: Alert and Calm (0); IV Status: ll1 Completed infusion; IV Intake: 250ml 08:34 Drug: NS 0.9% 1000 ml Route: IV; Rate: 100 ml/hr; Site: right wrist; ll1 09:59 Follow up: Response: No adverse reaction; IV Status: Infusion continued upon admission ca1 08:55 Drug: NS 0.9% 1000 ml Route: IV; Rate: 1000 ml; Site: right wrist; ll1 09:53 Follow up: Response: No adverse reaction; IV Status: Completed infusion; IV Intake: ll1 1000ml 08:59 Drug: Solu-CORTEF (hyrdoCORTISONE) 100 mg Route: IVP; Site: right wrist; ll1 09:52 Follow up: Response: No adverse reaction ll1 09:20 Drug: midodrine 5 mg Route: PO; ll1 11:30 Drug: NS 0.9% 500 ml Route: IV; Rate: bolus; Site: right antecubital; ca1 12:15 Follow up: Response: No adverse reaction; IV Status: Completed infusion; IV Intake: ca1 500ml Intake: 07:45 IV: 500ml; Total: 500ml. ll1 08:30 IV: 100ml; Total: 600ml. ll1 09:51 IV: 250ml; Total: 850ml. ll1 09:53 IV: 1000ml; Total: 1850ml. ll1 12:15 IV: 500ml; Total: 2350ml. ca1 Outcome: 08:44 Decision to Hospitalize by Provider. rn 14:30 Admitted to ER Hold. Please see [facility] for further documentation. ca1 14:30 Condition: stable 14:30 Instructed on the need for admit. 17:34 Admitted to Tele accompanied by nurse, via stretcher, room 406, with oxygen, with ca1 chart, Report called to Ms Agarwal 17:34 Condition: improved 17:54 Patient left the ED. aa5 Signatures: Dispatcher [employer] EDMS Chilango Jansen MD MD cha Williams, Irene, RN RN iw Rufino Du MD MD rn Calderon, Audri, RN RN aa5 Mable Nichols RN RN ea Acob, Cheryl, RN RN ca1 Phyllis Pearson RN RN ll1 Corrections: (The following items were deleted from the chart) 07:12 07:09 Acuity: VADIM 3 iw iw 07:55 07:53 Respiratory: Airway is patent Trachea midline Respiratory effort is even, ll1 labored, Respiratory pattern is symmetrical, tachypnea Breath sounds are coarse in right middle lobe and right lower lobe Breath sounds are diminished in left upper lobe and left lower lobe ll1 10:41 10:34 BP 81 / 56; Pulse 106bpm; Resp 21bpm; Pulse Ox 89% 6 lpm Nasal Cannula; ca1 ca1 10:52 10:20 BP 83 / 46; Pulse 102bpm; Resp 18bpm; Spontaneous; Pulse Ox 97% BiPAP; ca1 ca1 10:52 10:34 BP 81 / 56; Pulse 106bpm; Resp 21bpm; Pulse Ox 90% 6 lpm Nasal Cannula; ca1 ca1 11:20 11:10 BP 81 / 48; Pulse 104bpm; Resp 23bpm; Spontaneous; Pulse Ox 92% 6 lpm Nasal ca1 Cannula; ca1 17:04 13:17 Reassessment: pt placed back on BiPAP. ca1 ca1
[2020-11-15] MEDS ORDERED: MIDODRINE HCL 5 MG TABLET PO ONE (09:00)
[2020-11-15] MEDS ORDERED: HYDROCORTISONE SUC 100 MG INJ ONE (09:12)
[2020-11-15] MEDS ORDERED: ONDANSETRON 4 MG/2 ML VIAL IV PRN (13:01)
[2020-11-15] MEDS ORDERED: ACETAMINOPHEN 500 MG TAB PO PRN (13:01)
[2020-11-15] MEDS: IPRATROPIUM BROM 0.5MG/2.5ML NEB SCH ×2 (13:38→20:30)
[2020-11-15] MEDS: ALBUTEROL 2.5 MG/3 ML NEB SOL NEB SCH ×2 (13:38→20:30)
[2020-11-15] MEDS ORDERED: ALBUTEROL 2.5 MG/3 ML NEB SOL ONE (13:55)
[2020-11-15] MEDS: NA CHLORIDE 0.9% 1,000 ML IV SCH (14:00)
[2020-11-15 16:28] VITALS: BMI 19.0
[2020-11-15] MEDS: PIPER/TAZO/NS 3.375gm 3.375 GM/100 ML BAG IVPB SCH (18:00)
[2020-11-15] MEDS: METHYLPREDNISOLONE 125 MG INJ IV SCH (19:46)
[2020-11-16] MEDS: METHYLPREDNISOLONE 125 MG INJ IV SCH ×4 (00:35→17:29)
[2020-11-16] MEDS: PIPER/TAZO/NS 3.375gm 3.375 GM/100 ML BAG IVPB SCH ×3 (01:00→17:28)
[2020-11-16] MEDS ORDERED: PIPERACIL/TAZO 3.375 GM VIAL IV ONE (01:23)
[2020-11-16] MEDS ORDERED: NA CHLORIDE 0.9% 100 ML ONE (01:26)
[2020-11-16] MEDS: ALBUTEROL 2.5 MG/3 ML NEB SOL NEB SCH ×4 (01:42→20:20)
[2020-11-16] MEDS: IPRATROPIUM BROM 0.5MG/2.5ML NEB SCH ×4 (01:42→20:20)
[2020-11-16 04:01] LABS: Absolute Lymphocytes (CBC) 0.4 K/uL (0.7-4.9); Basophils % 0.2 % (0-1.3); Hematocrit 35.3 % (36.0-45.0); Lymphocytes % 1.1 % (15.3-44.8); MPV 7.9 fL (7.6-11.3); RBC Red Blood Cell Count 3.72 M/uL (3.86-4.86)
[2020-11-16 04:08] LABS: Protime INR 1.24
[2020-11-16 04:36] LABS: ALT/SGPT 40 U/L (12-78); AST/SGOT 18 U/L (15-37); Albumin 2.4 g/dL (3.4-5.0); Alkaline Phosphatase 50 U/L (45-117); BUN Blood Urea Nitrogen 15 mg/dL (7-18); Bicarbonate 28 mmol/L (21-32); Bilirubin Total 0.5 mg/dL (0.2-1.0); Glucose Level 185 mg/dL (74-106); Magnesium 2.2 mg/dL (1.8-2.4); NT PRO-BNP 2823 pg/mL (<450); Phosphorus 2.8 mg/dL (2.5-4.9); Potassium 3.9 mmol/L (3.5-5.1); Protein, Total 5.1 g/dL (6.4-8.2); Sodium Level 143 mmol/L (136-145); Thyroid Stimulating Hormone 0.264 uIU/mL (0.360-3.740)
[2020-11-16] MEDS ORDERED: VANCOMYCIN/NS 1 gm 1 GM/250 ML BAG IVPB ONE (07:30)
[2020-11-16] MEDS: ENOXAPARIN 40 MG/0.4 ML SQ SCH (09:00)
[2020-11-16 09:45] LABS: Urine Appearance CLEAR (Clear); Urine Bilirubin NEGATIVE (Negataive); Urine Blood NEGATIVE (Negative); Urine Color YELLOW (Yellow); Urine Glucose NEGATIVE (Negative); Urine Protein 1+ (Negative); Urine Urobilinogen 0.2 mg/dL (0.2-1.0); Urine pH 5.5 (5.0-7.0)
[2020-11-16 09:46] LABS: Urine Microscopic Reflex ORDER UMIC
[2020-11-16] MEDS ORDERED: ALBUTEROL INHALER 60 PUFF/8 GM IH PRN (10:21)
[2020-11-16] MEDS ORDERED: ACETAMINOPHEN 500 MG TAB PO PRN (10:21)
--- NOTE | 2020-11-16 10:32 | P.HP ---
Certification for Inpatient Patient admitted to: Inpatient With expected LOS: >2 Midnights Patient will require the following post-hospital care: None Practitioner: I am a practitioner with admitting privileges, knowledge of patient current condition, hospital course, and medical plan of care. Services: Services provided to patient in accordance with Admission requirements found in Title 42 Section 412.3 of the Code of Federal Regulations Patient History Date of Service: 11/15/20 Reason for admission: Respiratory distress History of Present Illness: Patient is a 74-year-old female with a history of pulmonary AVM & pulmonary hypertension, with a history of left lung upper lobectomy, who presents to the emergency room with difficulty breathing. Patient started on IV steroids and neb treatments along with antibiotic therapy. CT scan revealed questionable pulmonary fibrosis. Patient is on chronic medications. At this time will start her on breathing treatments and continued IV steroids. She follows up with Pulmonary in [place]. 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 Patient will be admitted on BiPAP therapy and we will try to be gradually weaned her off of the BiPAP. Allergies Sulfa (Sulfonamide Antibiotics) Allergy (Intermediate, Verified 02/02/20 20:09) Hives/Rash trimethoprim [From Bactrim] Allergy (Intermediate, Verified 02/02/20 20:09) Rash sulfamethoxazole [From Bactrim] Allergy (Verified 02/02/20 20:09) Unknown Home Medications: Cholecalciferol (Vitamin D3) [Vitamin D3] 2,000 unit PO DAILY 11/07/19 Citalopram [Celexa*] 40 mg PO DAILY 11/07/19 Glucosamine HCl 500 mg PO DAILY 11/07/19 Montelukast [Singulair*] 10 mg PO BEDTIME 11/07/19 [place]-3 Fatty Acids [[place]-3] 1,000 mg PO DAILY 11/07/19 Turmeric Root Extract [Turmeric] 500 mg PO DAILY 11/07/19 ALPRAZolam [Xanax*] 0.5 mg PO TID PRN 11/08/19 Acyclovir [Zovirax] 200 mg PO BID 11/08/19 Albuterol Sulfate [Albuterol Sulfate 0.083% Neb Soln] 2.5 mg NEB BID 10/02/20 Digoxin [Lanoxin*] 0.125 mg PO DAILY 10/02/20 Acetaminophen [Tylenol Extra Strength] 500 mg PO Q6HP PRN 11/15/20 Albuterol Sulfate [Proair Respiclick] 2 puff IH Q4HP PRN 11/15/20 Amlodipine [Norvasc] 5 mg PO DAILY 11/15/20 Budesonide/Formoterol Fumarate [Symbicort 80-4.5 Mcg Inhaler] 2 puff IH BID 11/15/20 Guaifenesin [Mucinex] 1,200 mg PO BID 11/15/20 Macitentan [Opsumit] 10 mg PO DAILY 11/15/20 Midodrine HCl [Proamatine] 5 mg PO TID 11/15/20 Tiotropium [place] [Spiriva Respimat] 2 puff IH DAILY 11/15/20 predniSONE [Deltasone] 10 mg PO BID 11/15/20 - Past Medical/Surgical History Has patient received pneumonia vaccine in the past: Yes Diabetic: No -: shingles -: copd -: depression with anxiety -: mycobacterium avium -: neuropathy, -: fatty liver -: osteoporosis -: Pulmonary hypertension -: left upper lobectomy -: l kidney cyst -: tonsillectomy -: csection -: tubal ligation Psychosocial/ Personal History: Patient lives at home with her grandson - Family History Mother Medical History: Lung disease Notes: copd 1978 Father Medical History: Liver disease Notes: cirrhosis Brother Medical History: Cancer Notes: Leukemia Sister Medical History: Lung disease - Social History Smoking Status: Former smoker Alcohol use: No CD- Drugs: No Caffeine use: Yes Place of Residence: Home Review of Systems 10-point ROS is otherwise unremarkable Physical Examination - Vital Signs Temperature: 97.0 F Blood Pressure: 102/54 Pulse: 98 Respirations: 14 Pulse Ox (%): 97 - Physical Exam General: Alert, In no apparent distress, Oriented x3 HEENT: Atraumatic, PERRLA, Mucous membr. moist/pink, EOMI, Sclerae nonicteric Neck: Supple, 2+ carotid pulse no bruit, No LAD, Without JVD or thyroid abnormality Respiratory: Diminished, Expiratory wheezes Cardiovascular: Regular rate/rhythm, Normal S1 S2, Systolic murmur Gastrointestinal: Normal bowel sounds, Soft and benign, Non-distended, No tenderness Musculoskeletal: No clubbing, No swelling, No tenderness Integumentary: No rashes Neurological: Normal gait, Normal speech, Normal strength at 5/5 x4 extr, Normal tone, Sensation intact, Cranial nerves 3-12 intact, Normal affect Lymphatics: No axilla or inguinal lymphadenopathy - Studies Microbiology Data (last 24 hrs): 11/15/20 06:55 Blood - Blood Blood Culture Gram Stain - Final Assessment & Plan - Problems (Diagnosis) (1) S/P partial lobectomy of lung Current Visit: Yes Status: Acute (2) Acute and chronic respiratory failure with hypoxia Current Visit: No Status: Acute (3) COPD exacerbation Current Visit: No Status: Acute (4) Pulmonary fibrosis Current Visit: No Status: Acute (5) Pulmonary hypertension Current Visit: No Status: Chronic - Plan Plan: 1. Continue with albuterol and Atrovent nebs 2. Continue with IV steroids 3. BiPAP support as needed 4. Pulmonary consultation 5. Resume home medications for pulmonary hypertension; we do not have it on formulary so she will have to bring it from home 6. Repeat chest x-ray in the morning 7. Strict blood pressure and blood sugar control 8. GI and DVT prophylaxis Discharge Plan: Home Plan to discharge in: Greater than 2 days - Advance Directives Does patient have a Living Will: No Does patient have a Durable POA for Healthcare: Yes - Code Status/Comfort Care Code Status Assessed: Yes Code Status: Full Code Critical Care: No Time Spent Managing PTS Care (In Minutes): 45
[2020-11-16 10:47] LABS: Urine Bacteria <20 /HPF (<20); Urine RBC <5 /HPF (NONE SEEN)
[2020-11-16] MEDS: DIGOXIN 0.125 MG TABLET PO SCH (10:54)
[2020-11-16] MEDS: AMLODIPINE 5 MG TAB PO SCH (10:55)
[2020-11-16] MEDS: CITALOPRAM 10 MG TABLET PO SCH (10:56)
[2020-11-16] MEDS: ALPRAZOLAM 0.5 MG TABLET PO PRN ×2 (10:56→18:48)
--- NOTE | 2020-11-16 10:57 | P.CNS ---
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 Became worse heavily for shortness of breath, wheezing came here to the hospital was found to have a left lower lobe pneumonia elevated white count she is very tachypneic Allergies Sulfa (Sulfonamide Antibiotics) Allergy (Intermediate, Verified 02/02/20 20:09) Hives/Rash trimethoprim [From Bactrim] Allergy (Intermediate, Verified 02/02/20 20:09) Rash sulfamethoxazole [From Bactrim] Allergy (Verified 02/02/20 20:09) Unknown Home Medications: Cholecalciferol (Vitamin D3) [Vitamin D3] 2,000 unit PO DAILY 11/07/19 Citalopram [Celexa*] 40 mg PO DAILY 11/07/19 Glucosamine HCl 500 mg PO DAILY 11/07/19 Montelukast [Singulair*] 10 mg PO BEDTIME 11/07/19 [place]-3 Fatty Acids [[place]-3] 1,000 mg PO DAILY 11/07/19 Turmeric Root Extract [Turmeric] 500 mg PO DAILY 11/07/19 ALPRAZolam [Xanax*] 0.5 mg PO TID PRN 11/08/19 Acyclovir [Zovirax] 200 mg PO BID 11/08/19 Albuterol Sulfate [Albuterol Sulfate 0.083% Neb Soln] 2.5 mg NEB BID 10/02/20 Digoxin [Lanoxin*] 0.125 mg PO DAILY 10/02/20 Acetaminophen [Tylenol Extra Strength] 500 mg PO Q6HP PRN 11/15/20 Albuterol Sulfate [Proair Respiclick] 2 puff IH Q4HP PRN 11/15/20 Amlodipine [Norvasc] 5 mg PO DAILY 11/15/20 Budesonide/Formoterol Fumarate [Symbicort 80-4.5 Mcg Inhaler] 2 puff IH BID 11/15/20 Guaifenesin [Mucinex] 1,200 mg PO BID 11/15/20 Macitentan [Opsumit] 10 mg PO DAILY 11/15/20 Midodrine HCl [Proamatine] 5 mg PO TID 11/15/20 Tiotropium [place] [Spiriva Respimat] 2 puff IH DAILY 11/15/20 predniSONE [Deltasone] 10 mg PO BID 11/15/20 - Past Medical/Surgical History Diabetic: No -: shingles -: copd -: depression with anxiety -: mycobacterium avium -: neuropathy, -: fatty liver -: osteoporosis -: Pulmonary hypertension -: left upper lobectomy -: l kidney cyst -: tonsillectomy -: csection -: tubal ligation Psychosocial/ Personal History: Patient lives at home with her grandson - Family History Mother Medical History: Lung disease Notes: copd 1978 Father Medical History: Liver disease Notes: cirrhosis Brother Medical History: Cancer Notes: Leukemia Sister Medical History: Lung disease - Social History Smoking Status: Unknown if ever smoked Alcohol use: No CD- Drugs: No Caffeine use: Yes Place of Residence: Home Review of Systems General: Weakness Respiratory: Cough, Shortness of Breath Physical Examination Temp Pulse Resp BP Pulse Ox 97.0 F 98 H 14 102/54 L 97 11/16/20 10:32 11/16/20 10:32 11/16/20 10:32 11/16/20 10:32 11/16/20 10:32 General: Alert, Moderate distress Respiratory: Crackles/rales, Expiratory wheezes Cardiovascular: No edema, Regular rate/rhythm, Normal S1 S2 Gastrointestinal: Soft and benign - Problems (1) COPD exacerbation Current Visit: No Status: Acute Plan: Patient is 74 years of age with terminal COPD admitted with an exacerbation most likely she has a left lower lobe pneumonia white count is elevated continue with Zosyn right now change to p.o. levofloxacin 750 mg p.o. daily in addition to prednisone p.o. tomorrow Dc IV fluids vital signs oxygenation satisfactory Dc BiPAP apparently she was start on some amlodipine blood cultures negative prognosis poor of given our option to follow-up with me
[2020-11-16] MEDS: VITAMIN D 1000 UNIT TAB PO SCH ×2 (12:02→12:03)
[2020-11-16] MEDS: ACYCLOVIR 400 MG TABLET PO SCH ×2 (12:02→22:23)
[2020-11-16] MEDS: DOCOSAHEXANOIC AC/EPA 1000 MG PO SCH (12:02)
[2020-11-16] MEDS: MIDODRINE HCL 5 MG TABLET PO SCH ×3 (12:03→22:24)
[2020-11-16] MEDS: MONTELUKAST 10 MG TAB PO SCH ×2 (12:03→22:24)
[2020-11-16] MEDS: GUAIFENESIN 600 MG SA TAB PO SCH ×2 (12:03→22:22)
[2020-11-16] MEDS ORDERED: POTASSIUM CL SA 10 MEQ TAB PO ONE (16:36)
[2020-11-16] MEDS ORDERED: Budesonide/Formoterol Fumarate [Symbicort 80-4.5 Mcg Inhaler] 10.2 GM H IH SCH (21:00)
[2020-11-16] MEDS ORDERED: ALBUTEROL SULFATE IH SCH (21:00)
[2020-11-16] MEDS: NA CHLORIDE 0.9% 1,000 ML IV SCH (23:20)
[2020-11-17] MEDS: METHYLPREDNISOLONE 125 MG INJ IV SCH ×4 (00:22→17:01)
[2020-11-17] MEDS: PIPER/TAZO/NS 3.375gm 3.375 GM/100 ML BAG IVPB SCH ×3 (00:23→16:14)
[2020-11-17] MEDS: IPRATROPIUM BROM 0.5MG/2.5ML NEB SCH ×4 (02:25→20:15)
[2020-11-17] MEDS: ALBUTEROL 2.5 MG/3 ML NEB SOL NEB SCH ×4 (02:25→20:15)
[2020-11-17 04:22] LABS: Hematocrit 31.5 % (36.0-45.0); RBC Red Blood Cell Count 3.32 M/uL (3.86-4.86)
[2020-11-17 04:23] LABS: Absolute Lymphocytes (CBC) 0.3 K/uL (0.7-4.9); Basophils % 0.1 % (0-1.3); Lymphocytes % 1.4 % (15.3-44.8); MPV 8.5 fL (7.6-11.3)
[2020-11-17 04:37] LABS: ALT/SGPT 57 U/L (12-78); AST/SGOT 21 U/L (15-37); Albumin 2.1 g/dL (3.4-5.0); Alkaline Phosphatase 59 U/L (45-117); BUN Blood Urea Nitrogen 18 mg/dL (7-18); Bicarbonate 28 mmol/L (21-32); Bilirubin Total 0.4 mg/dL (0.2-1.0); Glucose Level 179 mg/dL (74-106); Magnesium 2.3 mg/dL (1.8-2.4); NT PRO-BNP 3786 pg/mL (<450); Protein, Total 4.9 g/dL (6.4-8.2); Sodium Level 145 mmol/L (136-145)
[2020-11-17] MEDS ORDERED: POTASSIUM PHOS IN 0.9 % NACL 15 MMOL/250 ML BAG IV ONE (08:00)
[2020-11-17] MEDS: AMLODIPINE 5 MG TAB PO SCH (09:00)
[2020-11-17] MEDS: GLUCOSAMINE HCL 500 MG PO SCH (09:00)
[2020-11-17] MEDS: CITALOPRAM 10 MG TABLET PO SCH (09:05)
[2020-11-17] MEDS: MIDODRINE HCL 5 MG TABLET PO SCH ×3 (09:05→21:43)
[2020-11-17] MEDS: DIGOXIN 0.125 MG TABLET PO SCH (09:05)
[2020-11-17] MEDS: GUAIFENESIN 600 MG SA TAB PO SCH ×2 (09:05→21:43)
[2020-11-17] MEDS: VITAMIN D 1000 UNIT TAB PO SCH (09:05)
[2020-11-17] MEDS: ACYCLOVIR 400 MG TABLET PO SCH ×2 (09:05→21:43)
[2020-11-17] MEDS: DOCOSAHEXANOIC AC/EPA 1000 MG PO SCH (09:05)
[2020-11-17] MEDS: ALPRAZOLAM 0.5 MG TABLET PO PRN ×2 (09:06→13:52)
[2020-11-17] MEDS: Turmeric Root Extract [Turmeric] 500 MG Capsule PO SCH (09:07)
[2020-11-17] MEDS: DULERA 100/5 (MOMETASONE/FORMOTEROL) INHALER IH SCH ×2 (09:08→21:00)
[2020-11-17] MEDS: MIST INHAL IH SCH (09:09)
[2020-11-17] MEDS: TIOTROPIUM BROMIDE 4 GM IH SCH (09:09)
[2020-11-17] MEDS: Macitentan [Opsumit] 10 MG Tablet PO SCH (09:10)
[2020-11-17] MEDS: ENOXAPARIN 40 MG/0.4 ML SQ SCH (09:12)
--- NOTE | 2020-11-17 10:39 | RAD REPORT ---
EXAM DESCRIPTION: RAD - Chest Single View - 11/17/2020 5:25 am CLINICAL HISTORY: pneumonia Chest pain. COMPARISON: Chest Single View dated 11/15/2020; Chest Single View dated 10/01/2020; Chest Single View d ated 05/16/2020; Chest Single View dated 02/02/2020 FINDINGS: Portable technique limits examination quality. Left lung base moderate-sized infiltrate superimposed on fibrotic changes appear stable. The heart is upper limit normal in size.
--- NOTE | 2020-11-17 11:09 | P.PN ---
Subjective Date of Service: 11/17/20 Chief Complaint: COPD exacerbation and possible left lower lobe pneumonia Subjective: Improving (Doing a little better still very anxious narrows coughing up some productive sputum very short of breath very debilitated) Review of Systems General: Weakness Respiratory: Cough, Shortness of Breath Physical Examination - Vital Signs Temperature: 97.5 F Blood Pressure: 105/56 Pulse: 114 Respirations: 22 Pulse Ox (%): 92 - Physical Exam General: Alert, Moderate distress Respiratory: Crackles/rales (Crackles in the left lower lobe), Expiratory wheezes Cardiovascular: No edema, Normal S1 S2 - Studies Microbiology Data (last 24 hrs): 11/15/20 06:55 Blood - Blood Blood Culture Gram Stain - Final Assessment & Plan - Problems (Diagnosis) (1) COPD exacerbation Current Visit: No Status: Acute Plan: Patient is 74 years of age admitted with COPD exacerbation she appears to have a left lower lobe pneumonia 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 levofloxacin and doxycycline wait for cultures blood culture shows gram-negative rods sputum cultures have been ordered Dc amlodipine was I presume started because of pulmonary hypertension also add doxycycline white count is still elevated is declining
[2020-11-17] MEDS: levoFLOXacin 750 MG TAB PO SCH (11:59)
[2020-11-17] MEDS ORDERED: ALBUMIN HUMAN 25% 100 ML IV ONE (14:53)
[2020-11-17] MEDS ORDERED: DIGOXIN 0.125 MG TABLET PO ONE (14:53)
[2020-11-17] MEDS ORDERED: METHYLPREDNISOLONE 125 MG INJ IV SCH (17:00)
[2020-11-17] MEDS: ARFORMOTEROL TARTRATE 15 MCG/2 ML VIAL.NEB NEB SCH (20:15)
[2020-11-17] MEDS: MONTELUKAST 10 MG TAB PO SCH (21:44)
[2020-11-17] MEDS: DOXYCYCLINE 100 MG CAP PO SCH (21:44)
[2020-11-18] MEDS: METHYLPREDNISOLONE 125 MG INJ IV SCH ×5 (00:37→23:51)
[2020-11-18] MEDS: PIPER/TAZO/NS 3.375gm 3.375 GM/100 ML BAG IVPB SCH ×3 (00:37→16:07)
[2020-11-18] MEDS: ALBUTEROL 2.5 MG/3 ML NEB SOL NEB SCH ×4 (01:25→20:10)
[2020-11-18] MEDS: IPRATROPIUM BROM 0.5MG/2.5ML NEB SCH ×4 (01:25→20:10)
--- NOTE | 2020-11-18 02:21 | P.PN ---
Subjective Date of Service: 11/16/20 Patient is clinically feeling better. Patient's respiratory status is improved. Patient continues to feel better. Continue with IV steroids. Patient with findings of pulmonary fibrosis on CT scan. Patient with a history of pulmonary hypertension on Maciten(Opsumit) which is an endothelin receptor antagonist. However, patient clinical symptoms have slowly worsened. She has been hospitalized on numerous occasions over the last month. She feels like she is declining as does her daughter. Decision was made to admit the patient to the hospital further evaluation. CT imaging is reviewed which reveals honey combing which is indicative of pulmonary fibrosis. Continue with IV steroids and neb treatments. O2 per protocol Review of Systems 10-point ROS is otherwise unremarkable Physical Examination - Vital Signs Temperature: 97.5 F Blood Pressure: 108/58 Pulse: 108 Respirations: 18 Pulse Ox (%): 96 - Physical Exam General: Alert, In no apparent distress, Oriented x3 HEENT: Atraumatic, PERRLA, EOMI Neck: Supple, JVD not distended Respiratory: Diminished, Expiratory wheezes, Rhonchi/gurgles Cardiovascular: Regular rate/rhythm, Normal S1 S2, Systolic murmur Gastrointestinal: Normal bowel sounds, Soft and benign, Non-distended, No tenderness Musculoskeletal: No clubbing, No swelling, No tenderness Neurological: Sensation intact, Cranial nerves 3-12 intact - Studies Microbiology Data (last 24 hrs): 11/15/20 06:55 Blood - Blood Blood Culture Gram Stain - Final Medications List Reviewed: Yes Assessment & Plan - Problems (Diagnosis) (1) S/P partial lobectomy of lung Current Visit: Yes Status: Acute (2) Acute and chronic respiratory failure with hypoxia Current Visit: No Status: Acute (3) COPD exacerbation Current Visit: No Status: Acute (4) Pulmonary fibrosis Current Visit: No Status: Acute (5) Pulmonary hypertension Current Visit: No Status: Chronic - Plan Plan: 1. Continue with albuterol and Atrovent nebs 2. Continue with IV steroids 3. Currently on wall oxygen at this time 4. Pulmonary consultation appreciated 5. Resume home medications for pulmonary hypertension; we do not have it on formulary so she will have to bring it from home 6. Repeat chest x-ray in the morning 7. Strict blood pressure and blood sugar control 8. Contacted tear down man, Dr. Herrera in [place] but patient's physician was not available and will contact me on Thursday per pulmonary medical front desk coordinator. Covering physician was not aware of missed brain please current clinical condition. At this time will continue with supportive care. Prognosis long-term is poor 9. GI and DVT prophylaxis Discharge Plan: Home Plan to discharge in: Greater than 2 days - Advance Directives Does patient have a Living Will: No Does patient have a Durable POA for Healthcare: Yes - Code Status/Comfort Care Code Status: Full Code Critical Care: No Time Spent Managing PTS Care (In Minutes): 35
--- NOTE | 2020-11-18 02:29 | P.PN ---
Date of Service: 11/17/20 Subjective Date of Service: 11/17/20 Patient is having a lot of anxiety. Clinical symptoms feel to be worsened. Patient has decided that she does not want to be resuscitated. Spoke with daughter and concern is that she may not improve to were she can care for herself any further. If her thread trimmer also feels that she needs hospice then she may be agreeable. He was not boston cutter this weekend and I was unable to contact him. On-call physician will have him contact me on Thursday. Date of Service: 11/16/20 Patient is clinically feeling better. Patient's respiratory status is improved. Patient continues to feel better. Continue with IV steroids. Patient with findings of pulmonary fibrosis on CT scan. Patient with a history of pulmonary hypertension on Maciten(Opsumit) which is an endothelin receptor antagonist. However, patient clinical symptoms have slowly worsened. She has been hospitalized on numerous occasions over the last month. She feels like she is declining as does her daughter. Decision was made to admit the patient to the hospital further evaluation. CT imaging is reviewed which reveals honey combing which is indicative of pulmonary fibrosis. Continue with IV steroids and neb treatments. O2 per protocol Review of Systems 10-point ROS is otherwise unremarkable Physical Examination - Vital Signs Reviewed - Physical Exam General: Alert, In no apparent distress, Oriented x3 Respiratory: Diminished, Expiratory wheezes, Rhonchi/gurgles Cardiovascular: Regular rate/rhythm, Normal S1 S2, Systolic murmur Gastrointestinal: Normal bowel sounds, Soft and benign, Non-distended, No tenderness Musculoskeletal: No clubbing, No swelling, No tenderness Neurological: Sensation intact, Cranial nerves 3-12 intact Assessment & Plan - Problems (Diagnosis) (1) S/P partial lobectomy of lung Current Visit: Yes Status: Acute (2) Acute and chronic respiratory failure with hypoxia Current Visit: No Status: Acute (3) COPD exacerbation Current Visit: No Status: Acute (4) Pulmonary fibrosis Current Visit: No Status: Acute (5) Pulmonary hypertension Current Visit: No Status: Chronic - Plan Plan: 1. Continue with albuterol and Atrovent nebs; added Brovana 2. Continue with IV steroids; increase IV steroids to Q 6 hr 3. Currently on wall oxygen at this time 4. Pulmonary consultation appreciated 5. Resumed home medications for pulmonary hypertension-Maciten(Opsumit); 6. Repeat chest x-ray with no improvement of infiltrates 7. Strict blood pressure and blood sugar control 8. Contacted thread trimmer, Dr. Herrera-he will contact me on Thursday per pulmonary boston cutter. Covering physician was not aware of current medical condition. At this time will continue with supportive care. Prognosis long- term is poor 9. GI and DVT prophylaxis Discharge Plan: Home Plan to discharge in: Greater than 2 days - Advance Directives Does patient have a Living Will: No Does patient have a Durable POA for Healthcare: Yes - Code Status/Comfort Care Code Status: Full Code Critical Care: No Time Spent Managing PTS Care (In Minutes): 35
--- NOTE | 2020-11-18 02:37 | P.PN ---
Date of Service: 11/18/20 Subjective Date of Service: 11/18/20 Patient feels better today. Respiratory status is a little bit better. Awaiting for phone call from patient's pulmonary physician Dr. Herrera. Patient is requesting detention facility placement to improve her strength. If she does not improve then hospice care is something she has considered. Date of Service: 11/17/20 Patient is having a lot of anxiety. Clinical symptoms feel to be worsened. Patient has decided that she does not want to be resuscitated. Spoke with daughter and concern is that she may not improve to were she can care for herself any further. If her tire mold engraver also feels that she needs hospice then she may be agreeable. He was not remote control mirror installer this weekend and I was unable to contact him. On-call physician will have him contact me on Thursday. Date of Service: 11/16/20 Patient is clinically feeling better. Patient's respiratory status is improved. Patient continues to feel better. Continue with IV steroids. Patient with findings of pulmonary fibrosis on CT scan. Patient with a history of pulmonary hypertension on Maciten(Opsumit) which is an endothelin receptor antagonist. However, patient clinical symptoms have slowly worsened. She has been hospital ized on numerous occasions over the last month. She feels like she is declining as does her daughter. Decision was made to admit the patient to the hospital further evaluation. CT imaging is reviewed which reveals honey combing which is indicative of pulmonary fibrosis. Continue with IV steroids and neb treatments. O2 per protocol Review of Systems 10-point ROS is otherwise unremarkable Physical Examination - Vital Signs Reviewed - Physical Exam General: Alert, In no apparent distress, Oriented x3 Respiratory: Diminished, Expiratory wheezes, Rhonchi/gurgles Cardiovascular: Regular rate/rhythm, Normal S1 S2, Systolic murmur Gastrointestinal: Normal bowel sounds, Soft and benign, Non-distended, No tenderness Musculoskeletal: No clubbing, No swelling, No tenderness Neurological: Sensation intact, Cranial nerves 3-12 intact Assessment & Plan - Problems (Diagnosis) (1) S/P partial lobectomy of lung Current Visit: Yes Status: Acute (2) Acute and chronic respiratory failure with hypoxia Current Visit: No Status: Acute (3) COPD exacerbation Current Visit: No Status: Acute (4) Pulmonary fibrosis Current Visit: No Status: Acute (5) Pulmonary hypertension Current Visit: No Status: Chronic - Plan Plan: 1. Continue with albuterol and Atrovent nebs; added Brovana 2. Continue with IV steroids; increase IV steroids to Q 6 hr 3. Currently on wall oxygen at this time; continue to try to wean this down 4. Pulmonary consultation appreciated 5. Resumed home medications for pulmonary hypertension-Maciten(Opsumit); 6. Repeat chest x-ray with no improvement of infiltrates 7. Strict blood pressure and blood sugar control 8. Contacted tire mold engraver, Dr. Herrera-he will contact me on Thursday per pulmonary remote control mirror installer. Covering physician was not aware of current medical condition. At this time will continue with supportive care. Prognosis long- term is poor 9. GI and DVT prophylaxis Discharge Plan: Home Plan to discharge in: Greater than 2 days - Advance Directives Does patient have a Living Will: No Does patient have a Durable POA for Healthcare: Yes - Code Status/Comfort Care Code Status: Full Code Critical Care: No Time Spent Managing PTS Care (In Minutes): 35
--- NOTE | 2020-11-18 07:54 | RAD REPORT ---
[facility]18 [facility] CLINICAL HISTORY: Pneumonia COMPARISON: November 17, 2020 FINDINGS: Mild basilar opacity is unchanged Additional extensive bilateral pulmonary fibrosis unchanged. IMPRESSION: Mild left basilar pneumonia superimposed over pulmonary fibrosis unchanged
[2020-11-18] MEDS: ALPRAZOLAM 0.5 MG TABLET PO PRN ×2 (07:55→13:56)
[2020-11-18 07:56] LABS: Absolute Lymphocytes (CBC) 0.2 K/uL (0.7-4.9); Basophils % 0.3 % (0-1.3); Hematocrit 32.5 % (36.0-45.0); Lymphocytes % 1.7 % (15.3-44.8); MPV 8.8 fL (7.6-11.3); RBC Red Blood Cell Count 3.41 M/uL (3.86-4.86)
[2020-11-18 08:01] LABS: Albumin 2.8 g/dL (3.4-5.0); Bilirubin Total 0.6 mg/dL (0.2-1.0); Magnesium 2.4 mg/dL (1.8-2.4); Protein, Total 5.6 g/dL (6.4-8.2)
[2020-11-18 08:09] LABS: Digoxin Level 1.2 ng/mL (0.80-2.00); Phosphorus 2.2 mg/dL (2.5-4.9)
[2020-11-18] MEDS: DOCOSAHEXANOIC AC/EPA 1000 MG PO SCH (08:11)
[2020-11-18] MEDS: GUAIFENESIN 600 MG SA TAB PO SCH ×2 (08:11→20:55)
[2020-11-18] MEDS: GLUCOSAMINE HCL 500 MG PO SCH (08:11)
[2020-11-18] MEDS: Turmeric Root Extract [Turmeric] 500 MG Capsule PO SCH (08:12)
[2020-11-18] MEDS: DULERA 100/5 (MOMETASONE/FORMOTEROL) INHALER IH SCH ×2 (08:14→20:57)
[2020-11-18] MEDS: MIST INHAL IH SCH (08:16)
[2020-11-18] MEDS: CITALOPRAM 10 MG TABLET PO SCH (08:16)
[2020-11-18] MEDS: Macitentan [Opsumit] 10 MG Tablet PO SCH (08:16)
[2020-11-18] MEDS: TIOTROPIUM BROMIDE 4 GM IH SCH (08:16)
[2020-11-18] MEDS: MIDODRINE HCL 5 MG TABLET PO SCH ×3 (08:18→20:56)
[2020-11-18] MEDS: levoFLOXacin 750 MG TAB PO SCH (08:18)
[2020-11-18] MEDS: DOXYCYCLINE 100 MG CAP PO SCH ×2 (08:18→20:56)
[2020-11-18] MEDS: VITAMIN D 1000 UNIT TAB PO SCH (08:19)
[2020-11-18] MEDS: ACYCLOVIR 400 MG TABLET PO SCH ×2 (08:19→20:58)
[2020-11-18] MEDS: ENOXAPARIN 40 MG/0.4 ML SQ SCH (08:20)
[2020-11-18 08:45] LABS: Blood Morphology Comment NOT SEEN (NOT SEEN); Platelet Estimate DECR; White Blood Cell Scan OK (OK)
[2020-11-18] MEDS: ARFORMOTEROL TARTRATE 15 MCG/2 ML VIAL.NEB NEB SCH ×2 (08:45→20:10)
[2020-11-18] MEDS ORDERED: DIGOXIN 0.25 MG TABLET PO SCH (09:00)
[2020-11-18] MEDS: POTASSIUM PHOS IN 0.9 % NACL 15 MMOL/250 ML BAG IV ONE ×2 (13:18→14:54)
[2020-11-18] MEDS ORDERED: ALPRAZOLAM 0.5 MG TABLET PO PRN (14:49)
[2020-11-18] MEDS ORDERED: NA CHLORIDE 0.9% 250 ML ONE (15:11)
[2020-11-18] MEDS: POTASS/SODIUM PHOSPHATE 1 PKT POWD.PACK PO SCH ×3 (16:29→17:24)
[2020-11-18] MEDS: METOPROLOL TAR 25 MG TAB PO SCH (17:16)
[2020-11-18] MEDS: MONTELUKAST 10 MG TAB PO SCH (20:56)
[2020-11-18 22:25] VITALS: O2SAT 98
[2020-11-19] MEDS: PIPER/TAZO/NS 3.375gm 3.375 GM/100 ML BAG IVPB SCH (00:06)
[2020-11-19] MEDS: IPRATROPIUM BROM 0.5MG/2.5ML NEB SCH (02:40)
[2020-11-19] MEDS: ALBUTEROL 2.5 MG/3 ML NEB SOL NEB SCH (02:40)
[2020-11-19] MEDS: METOPROLOL TAR 25 MG TAB PO SCH (05:10)
[2020-11-19] MEDS: METHYLPREDNISOLONE 125 MG INJ IV SCH (05:11)
[2020-11-19 05:13] VITALS: BP 107/62
[2020-11-19 06:31] VITALS: TEMP 97.4
--- NOTE | 2020-11-19 08:48 | P.DS ---
Admission Date: 11/15/20 Discharge Date: 11/19/20 Primary Care Provider: unknown; Pulmonary-Dr. Herrera Disposition: Discharge Condition: GOOD Reason for Admission: COPD exacerbation and possible left lower lobe pneumonia Consultations: Pulmonary-Dr. Mares Procedures: COVID: Negative CXR: COMPARISON: November 17, 2020 FINDINGS: Mild basilar opacity is unchanged Additional extensive bilateral pulmonary fibrosis unchanged. IMPRESSION: Mild left basilar pneumonia superimposed over pulmonary fibrosis unchanged Medical Problem List: Acute on chronic respiratory failure with hypoxia secondary to COPD exacerbation complicated with left lower lobe pneumonia, end-stage pulmonary fibrosis/COPD, pulmonary hypertension and history of partial lobectomy Depression Orthostatic hypotension on midodrine Brief History of Present Illness: 74-year-old female with history of end-stage COPD, pulmonary hypertension, and history of left lung upper lobectomy, who presents to the emergency room with difficulty breathing. Patient started on IV steroids and neb treatments along with antibiotic therapy. CT scan revealed questionable pulmonary fibrosis. Patient is on chronic medications. At this time will start her on breathing treatments and continued IV steroids. She follows up with Pulmonary in [place]. Her pipe and test supervisor is Dr. Herrera. Patient will be admitted on BiPAP therapy and we will try to be gradually weaned her off of the BiPAP. Hospital Course: Patient was hospitalized for acute on chronic respiratory failure with hypoxia secondary to left lower lobe pneumonia. This was complicated with her history of end-stage COPD/pulmonary fibrosis, pulmonary hypertension and history of lobectomy. Her condition did not improve. Patient had been on IV steroids, antibiotic therapy, and antiviral treatment. Patient was seen and evaluated by pulmonology. During the course of her stay advanced directives were addressed in detail with the attending physician Dr. Suarez. After a long discussion patient was made DNR. Patient had been recently evaluated for pulmonary fibrosis. Patient was also on medication for pulmonary hypertension. Patient had desired skilled placement with the possibility of hospice if her condition continued to decline. Unfortunately her condition declined. Patient . October she rest in peace. Vital Signs/Physical Exam: Temp Pulse Resp BP Pulse Ox 97.4 F 97 H 16 107/62 100 11/19/20 04:00 11/19/20 05:10 11/19/20 04:00 11/19/20 05:10 11/19/20 04:00 Other Physical/Emotional Findings: Patient Laboratory Data at Discharge: WBC 14.10 K/uL (4.3-10.9) H D 11/18/20 06:05 Hgb 10.5 g/dL (12.0-15.0) L 11/18/20 06:05 Hct 32.5 % (36.0-45.0) L 11/18/20 06:05 Plt Count 124 K/uL (152-406) L 11/18/20 06:05 PT 14.3 SECONDS (9.5-12.5) H 11/16/20 03:47 INR 1.24 11/16/20 03:47 APTT 24.1 SECONDS (24.3-36.9) L 11/16/20 03:47 Sodium 142 mmol/L (136-145) 11/18/20 07:20 Sodium 142 mmol/L (136-145) 11/18/20 07:20 Potassium 4.0 mmol/L (3.5-5.1) 11/18/20 07:20 Potassium 4.0 mmol/L (3.5-5.1) 11/18/20 07:20 BUN 21 mg/dL (7-18) H 11/18/20 07:20 BUN 21 mg/dL (7-18) H 11/18/20 07:20 Creatinine 0.67 mg/dL (0.55-1.3) 11/18/20 07:20 Creatinine 0.70 mg/dL (0.55-1.3) 11/18/20 07:20 Glucose 220 mg/dL (74-106) H 11/18/20 07:20 Glucose 223 mg/dL (74-106) H 11/18/20 07:20 Phosphorus 2.2 mg/dL (2.5-4.9) L 11/18/20 07:20 Magnesium 2.4 mg/dL (1.8-2.4) 11/18/20 07:20 Total Bilirubin 0.6 mg/dL (0.2-1.0) 11/18/20 07:20 AST 119 U/L (15-37) H 11/18/20 07:20 ALT 290 U/L (12-78) H D 11/18/20 07:20 Alkaline Phosphatase 111 U/L (45-117) D 11/18/20 07:20 Troponin I 0.05 ng/mL (0.0-0.045) H 11/16/20 00:17 Home Medications: Cholecalciferol (Vitamin D3) [Vitamin D3] 2,000 unit PO DAILY 11/07/19 Citalopram [Celexa*] 40 mg PO DAILY 11/07/19 Glucosamine HCl 500 mg PO DAILY 11/07/19 Montelukast [Singulair*] 10 mg PO BEDTIME 11/07/19 [place]-3 Fatty Acids [[place]-3] 1,000 mg PO DAILY 11/07/19 Turmeric Root Extract [Turmeric] 500 mg PO DAILY 11/07/19 ALPRAZolam [Xanax*] 0.5 mg PO TID PRN 11/08/19 Acyclovir [Zovirax] 200 mg PO BID 11/08/19 Albuterol Sulfate [Albuterol Sulfate 0.083% Neb Soln] 2.5 mg NEB BID 10/02/20 Digoxin [Lanoxin*] 0.125 mg PO DAILY 10/02/20 Acetaminophen [Tylenol Extra Strength] 500 mg PO Q6HP PRN 11/15/20 Albuterol Sulfate [Proair Respiclick] 2 puff IH Q4HP PRN 11/15/20 Amlodipine [Norvasc] 5 mg PO DAILY 11/15/20 Guaifenesin [Mucinex] 1,200 mg PO BID 11/15/20 Macitentan [Opsumit] 10 mg PO DAILY 11/15/20 Midodrine HCl [Proamatine] 5 mg PO TID 11/15/20 Tiotropium [place] [Spiriva Respimat] 2 puff IH DAILY 11/15/20 predniSONE [Deltasone] 10 mg PO BID 11/15/20 Mometasone/Formoterol [Dulera 100 Mcg/5 Mcg Inhaler] 2 puff IH BID 11/17/20 Physician Discharge Instructions: Patient . May she rest in peace. Followup: Unknown,U [Primary Care Provider] - Time spent managing pt's care (in minutes): 55
== END 2020-11-19 10:48 | disposition expired | DRG 193 ==
LOC: ER 06:55 → ERHOLD 13:02 → 4TH 17:43
PROVIDERS: ADMIT Hospitalist; ATTEND Hospitalist
PROC: 5A09457 Assistance with Respiratory Ventilation, 24-96 Consecutive Hours, Continuous Positive Airway Pressure (ICD-10-PCS; principal; 2020-11-15)
DX: J18.9 Pneumonia, unspecified organism (principal); J96.21 Acute and chronic respiratory failure with hypoxia; J44.1 Chronic obstructive pulmonary disease with (acute) exacerbation; J44.0 Chronic obstructive pulmonary disease with (acute) lower respiratory infection; I27.20 Pulmonary hypertension, unspecified; J84.10 Pulmonary fibrosis, unspecified; I95.1 Orthostatic hypotension; F32.9 Major depressive disorder, single episode, unspecified; F41.9 Anxiety disorder, unspecified; Z90.49 Acquired absence of other specified parts of digestive tract; Z79.01 Long term (current) use of anticoagulants; Z79.52 Long term (current) use of systemic steroids; Z88.1 Allergy status to other antibiotic agents; Z66 Do not resuscitate; Z79.899 Other long term (current) drug therapy; Z98.51 Tubal ligation status; Z87.891 Personal history of nicotine dependence; Z20.822 Contact with and (suspected) exposure to COVID-19
CPT/HCPCS: 0240U; 36415; 71045; 80048; 80053; 80076; 80162; 81003; 81015; 82805; 82947; 83605; 83735; 83880; 84100; 84145; 84439; 84443; 84484; 85025; 85610; 85730; 87040; 87077; 87186; 87205; 93005; 94640; 94660; 94760; 99285; J0456; J1650; J1720; J2543; J2930; J3370; J7030; J7040; J7050; J7605; P9047